=== PATIENT | female | born 1965 | race Caucasian/White ===

== ENCOUNTER 2018-08-04 22:10 | Emergency (ER) | payer OTHER ==
--- OUTSIDE RECORDS SUMMARY | 2018-08-04 22:14 | XMS REPORT | Clinical Summary ---
:1965 Author Organization [facility] Address [address] [place] [address] Care Team Providers Name Role Phone Juan Miguel Mensah MD Primary Care Provider Allergies Active Allergy Reactions Severity Noted Date Comments Adhesive Tape-Silicones 07/25/2013 Celecoxib Swelling 07/15/2016 Meperidine Hives 07/15/2016 Medications Medication Sig Dispensed Refills Start End Status Date Date prednisoLONE acetate Administer 1 0 Active (PRED FORTE) 1 % drop into the ophthalmic suspension left eye 4 (four) times a day. LOTEPREDNOL ETABONATE Apply to eye 2 0 Active (LOTEMAX OPHT) (two) times a day. OFLOXACIN OPHT Apply to eye 4 0 Active (four) times a day. Left eye pantoprazole Take 40 mg by 0 Active (PROTONIX) 40 MG EC mouth every tablet morning. doxylamine (UNISON) 25 Take 50 mg by 0 Active mg tablet mouth nightly as needed for sleep. furosemide (LASIX) 20 Take 40 mg by 0 Active MG tablet mouth as needed. levothyroxine Take 50 mcg by 0 Active (SYNTHROID, mouth every LEVOTHROID) 50 MCG morning. tablet ondansetron (ZOFRAN) 4 Take 4 mg by 0 Active MG tablet mouth every 12 (twelve) hours as needed for nausea or vomiting. sertraline (ZOLOFT) 50 Take 50 mg by 0 Active MG tablet mouth every evening. SUMAtriptan (IMITREX) Take 100 mg by 0 Active 50 MG tablet mouth once as needed for migraine. May repeat in 2 hours if unresolved. Do not exceed 200 mg in 24 hours. tiZANidine (ZANAFLEX) Take 4 mg by 0 Active 4 MG tablet mouth 4 (four) times a day as needed for muscle spasms. metoprolol tartrate Take 50 mg by 0 Active (LOPRESSOR) 50 MG mouth every tablet morning. brimonidine-timolol Administer 1 0 Active (COMBIGAN) 0.2-0.5 % drop into the ophthalmic solution left eye 4 (four) times a day. As needed gabapentin (NEURONTIN) Take 800 mg by 0 Active 800 mg tablet mouth 4 (four) times a day. ipratropium-albuterol Take 3 mL by 3 mL 0 04/27/20 Active (DUO-NEB) 0.5-2.5 nebulization 4 18 mg/mL nebulizer (four) times a day. folic acid (FOLVITE) Take 1 tablet 30 tablet 11 05/23/20 Active 800 MCG (800 mcg total) 18 019 tabletIndications: by mouth daily. Bilateral lung cancer (HCC) colestipol (COLESTID) Take 1 g by 0 Active 1 gram tablet mouth 2 (two) times a day. acyclovir (ZOVIRAX) Take 400 mg by 0 Discontinued 400 MG tablet mouth daily. 018 fentaNYL (DURAGESIC) Place 1 patch on 0 Discontinued 100 mcg/hr the skin every 018 other day. aspirin (ECOTRIN) 81 Take 81 mg by 0 Discontinued MG enteric coated mouth daily. 018 tablet leflunomide (ARAVA) 10 Take 10 mg by 0 Discontinued MG tablet mouth daily. 018 gabapentin (NEURONTIN) Take 1 capsule 30 capsule 0 12/17/19 300 mg (300 mg total) 17 018 capsuleIndications: by mouth 2 (two) Left wrist pain times a day. morPHINE (MSIR) 15 MG Take 15 mg by 0 Discontinued tablet mouth every 8 018 (eight) hours as needed for severe pain. acetaminophen Take 2 tablets 30 tablet 0 04/27/20 (TYLENOL) 500 MG (1,000 mg total) 18 018 tablet by mouth every 8 (eight) hours for 5 days. furosemide (LASIX) 40 Take 1 tablet 28 tablet 0 04/27/20 mg tablet (40 mg total) by 18 018 mouth daily for 28 days. amoxicillin-pot Take 1 tablet by 14 tablet 0 04/27/20 clavulanate mouth 2 (two) 18 018 (AUGMENTIN) 875-125 mg times a day for per tablet 7 days. methylPREDNISolone follow package 21 tablet 0 04/27/20 (MEDROL, JUANITA,) 4 mg directions 18 018 tablet dexamethasone Take 1 tablet PO 16 tablet 0 05/23/20 (DECADRON) 4 MG BID for 2 days 18 018 tabletIndications: starting the day Bilateral lung cancer after (HCC) chemotherapy acetaminophen-codeine Take 1-2 tablets 30 tablet 0 06/09/20 Discontinued (TYLENOL WITH CODEINE by mouth every 6 018 #3) 300-30 mg per (six) hours as tablet needed for moderate pain for up to 30 days. cephalexin (KEFLEX) Take 1 capsule 20 capsule 0 06/09/20 500 MG capsule (500 mg total) 18 018 by mouth 4 (four) times a day for 5 days. cephalexin (KEFLEX) Take 1 capsule 20 capsule 0 06/09/20 500 MG capsule (500 mg total) 18 018 by mouth 4 (four) times a day for 5 days. acetaminophen-codeine Take 1-2 tablets 30 tablet 0 06/09/20 Discontinued (TYLENOL WITH CODEINE by mouth every 6 018 #3) 300-30 mg per (six) hours as tablet needed for moderate pain for up to 30 days. benadryl/lidocaine/maa Swish and spit 120 mL 0 06/23/20 Discontinued lox (MAGIC MOUTHWASH) 10 mL every 6 018 1:1:1 suspension (six) hours as suspension needed (mouth sores/pain). chlorhexidine Apply 15 mL to 900 mL 0 06/23/20 (PERIDEX) 0.12 % the mouth or 18 018 solution throat 2 (two) times a day for 30 days. nystatin (MYCOSTATIN) Take 5 mL 60 mL 0 06/23/20 100,000 unit/mL (500,000 Units 018 suspension total) by mouth 2 (two) times a day for 30 days. Swish in mouth Active Problems Problem Noted Date Arthritis 06/14/2018 Coronary artery disease involving [place] coronary artery of [place] heart 06/14 without angina pectoris Bilateral lung cancer 04/21/2018 Distal radius fracture, left 07/20/2016 Displaced fracture of distal end of left radius 07/15/2016 Encounters Date Type Specialty Care Team Description 07/26/2018 Infusion Oncology Jakob Carrera MD Bilateral lung Sarah Allen RN cancer (HCC) (Primary Dx) 07/26/2018 Hospital Encounter Radiology Jakob Carrera MD Bilateral lung Sanam, cancer (HCC) Wang Asif MD 07/26/2018 Orders Only Oncology Kaylene Marion lung moraima Jerome (HCC) 07/25/2018 Orders Only Oncology Earnest Villagran RN 07/13/2018 Orders Only Oncology Kanchan Hartman MA 07/05/2018 Office Visit Oncology Jakob Carrera MD Bilateral lung cancer (HCC ) (Primary Dx); Coronary artery disease involving mash[place] coronary artery of [place]pee heart without angina pectoris; Arthritis 07/05/2018 Infusion Oncology Jakob Carrera MD Bilateral lung cancer (HCC) (Primary Dx) 07/05/2018 Orders Only Cardiology Araceli Pacheco, Bilateral lung MA cancer (HCC) (Primary Dx) 07/04/2018 Orders Only Oncology Jakob Carrera MD 06/26/2018 Hospital Encounter Radiology Jakob Carrera MD Bilateral lung cancer (HCC) 06/23/2018 Orders Only Oncology Elder Ratliff Bilateral lung Fili, RN cancer (HCC) (Primary Dx) 06/23/2018 Telephone Oncology Jakob Carrera MD 06/19/2018 Clinical Support Neurosurgery Ho, Chronic pain Ana, RN syndrome (Primary Dx) 06/14/2018 Office Visit Oncology Jakob Carrera MD Bilateral lung cancer (HCC ) (Primary Dx); Arthritis 06/14/2018 Infusion Oncology Jakob Carrera MD Bilateral lung cancer (HCC) (Primary Dx) 06/14/2018 Oncology Oncology Mallorie Branch, ALEX 06/13/2018 Orders Only Oncology Jakob Carrera MD 06/13/2018 Orders Only Oncology Kathy Sosa RPH 06/12/2018 Hospital Encounter Radiology Jakob Carrera MD Bilateral lung cancer (HCC) 06/09/2018 Anesthesia Event General Surgery Beatriz Aponte MD 06/09/2018 Surgery General Surgery Travon Grace, PLACEMENT OF PAIN MD PUMP SYSTEM 06/09/2018 Hospital Encounter General Surgery Travon Grace, Malignant neoplasm of lung, unspecified laterality, unspecified part of lung (HCC); Neck pain; Rheumatoid arthritis, involving unspecified site, unspecified rheumatoid factor presence (HCC) 06/09/2018 Telephone Oncology Jakob Carrera MD 06/08/2018 Prep for Surgery Neurosurgery Ho, Malignant neoplasm of lung , unspecified laterality, unspecified part of lung (HCC) (Primary Dx); ALEX Perez Neck pain; Rheumatoid arthritis, involving unspecified site, unspecified rheumatoid factor presence (HCC) 06/02/2018 Telephone Oncology Jakob Carrera MD 05/29/2018 Office Visit Neurosurgery Travon Grace, Chronic pain syndrome ( Primary Dx); Cancer associated pain 05/29/2018 Orders Only Oncology Earnest Villagran RN 05/29/2018 Telephone Oncology Jakob Carrera MD 05/25/2018 Orders Only Oncology Jakob Carrera MD 05/25/2018 Orders Only Oncology Jennifer Trinh RN 05/24/2018 Office Visit Cardiothoracic Janice Surgery follow-up examination (Primary Dx); Surgery Candy Gaytan NP Bilateral lung cancer Stephan Weir MD 05/23/2018 Lab Lab Jakob Carrera MD Bilateral lung cancer 05/23/2018 Office Visit Oncology Jakob Carrera MD Bilateral lung cancer (Primary Dx) 05/19/2018 Telephone Cardiothoracic Deloris Castellanos, TRAVIS 04/21/2018 Surgery Cardiothoracic Stephan Weir FLEXIBLE BRONSCOPY Deloris Garcia MD 04/21/2018 Anesthesia Event Cardiothoracic Demar Surgery Venus, [employer] TECHNICIAN 04/21/2018 - Hospital Encounter Cardiology Stephan Weir Bilateral lung 04/27/2018 MD Jose cancer 04/20/2018 Orders Only Cardiothoracic Faina, Surgery MD Dustin 04/13/2018 Surgery Cardiothoracic Stephan Weir FLEXIBLE Surgery MD Jose BRONCHOSCOPY 04/13/2018 Anesthesia Event Cardiothoracic Kasi Vega Surgery MD 04/13/2018 Hospital Encounter Cardiothoracic Stephan Weir MD 04/12/2018 Telephone Cardiothoracic Andres Surgery TRAVIS Fernandez 04/11/2018 Lab Lab Stephan Weir Bilateral lung cancer; MD Jose Pre-op testing 04/11/2018 Office Visit Cardiothoracic Stephan Weir Bilateral lung cancer ( Primary Dx); Surgery MD Jose Pre-op testing 04/11/2018 Orders Only Cardiothoracic Provider, Deloris Chan MD 04/06/2018 Hospital Encounter Radiology Jose Cadet Mass of left lung MD Robert 04/06/2018 Hospital Encounter Radiology Mac, Mass of left lung Osman Macdonald MD 03/28/2018 Hospital Encounter Radiology Mac, Malignant neoplasm Osman Macdonald MD of lung, unspecified laterality, unspecified part of lung 03/27/2018 Orders Only Cardiothoracic Provider, Deloris Chan MD 03/24/2018 Telephone Cardiothoracic Deloris Campos MA 03/24/2018 Transcribe Orders Radiology Mac, Mass of left lung Osman Macdonald MD (Primary Dx) 03/22/2018 Transcribe Orders Access Mac Malignant neoplasm Osman Macdonald MD of lung, unspecified laterality, unspecified part of lung (Primary Dx) 03/06/2018 Hospital Encounter Radiology Aashish Gibbons MD 03/06/2018 Hospital Encounter Radiology Aashish Gibbons Lung mass MD Rajiv 03/06/2018 Hospital Encounter Radiology Mac, Lung mass Osman Macdonald MD 03/06/2018 Hospital Encounter Radiology Aashish Gibbons MD 03/02/2018 Telephone Radiology Anat Mcdermott RN 02/23/2018 Transcribe Orders Radiology Mac, Lung mass (Primary Osman Macdonald MD Dx) 02/22/2018 Hospital Encounter Radiology Osman Watts MD 02/22/2018 Hospital Encounter Radiology Osman Watts MD after 08/03/2017 Family History Medical History Relation Name Comments Cancer Brother colon cancer Cancer Mother throat/breast cancer Cancer Sister lung cancer Relation Name Status Comments Brother (Age 57) Mother (Age 76) Sister (Age 42) Social History Tobacco Use Types Packs/Day Years Used Date Former Smoker Cigarettes 14 4 Quit: 04/11/1994 Smokeless Tobacco: Never Used Comments: Quit 20 years ago Alcohol Use Drinks/Week oz/Week Comments Yes Quit over a year ago Sex Assigned at Date Recorded Not on file Job Start Date Occupation Industry Not on file Not on file Not on file Travel History Travel Start Travel End No recent travel history available. Last Filed Vital Signs Vital Sign Reading Time Taken Blood Pressure 160/75 07/26/2018 10:15 AM CHIEF CLERK Pulse 76 07/26/2018 10:15 AM CHIEF CLERK Temperature 35.9 C (96.6 F) 07/26/2018 10:15 AM CHIEF CLERK Respiratory Rate 19 07/26/2018 10:15 AM CHIEF CLERK Oxygen Saturation 97% 07/26/2018 10:15 AM CHIEF CLERK Inhaled Oxygen Concentration - - Weight 100 kg (220 lb 11.2 oz) 07/26/2018 10:15 AM CHIEF CLERK Height 157.5 cm (5' 2") 07/26/2018 10:15 AM CHIEF CLERK Body Mass Index 40.37 07/26/2018 10:15 AM CHIEF CLERK Plan of Treatment Date Type Specialty Care Team Description 08/16/2018 Office Visit Oncology Jakob Carrera MD [address] [place] [phone] 08/16/2018 Infusion Oncology Jakob Carrera MD [address] [place] [phone] Health Maintenance Due Date Last Done Comments CERVICAL CANCER SCREENING 1984 BREAST CANCER SCREENING 2013 COLON CANCER SCREENING 2013 SHINGRIX VACCINE (1 of 2) 2013 INFLUENZA VACCINE 04/05/2018 HEPATITIS B VACCINES Aged Out No longer eligible based on patient's age to complete this topic IPV VACCINES Aged Out No longer eligible based on patient's age to complete this topic MENINGOCOCCAL VACCINE Aged Out No longer eligible based on patient's age to complete this topic Implants Implanted Type Area Solution Sales Senior Executive Device Shelf Model / Identifier Expiration Serial / Date Lot Port Injctbl Smart Port Ct W/ Dtchd [facility] Cath 8fr - [id number] Implantable N/A: [employer] 01/02/2021 [id number] / Implanted: 06/12/2018 (Quantity not on file) Infusion Ports N/A / or Accessories [id number] Infsn Synchromed Ii W/ Fltr Sut Loop Prgrmbl Rsvr 20ml - [id number] Neurosurgical N/A: [employer] 10/19/2019 [id number] / Implanted: Qty: 1 on 06/09/2018 by Travon Grace MD Implants N/A NEUROMODULATION / [id number] Passer Intrathcl Cath Rp Tip Obtrtr 38cm - [id number] Surgical N/A: [employer] [place] - 08/25/2019 [id number] / Implanted: Qty: 1 on 06/09/2018 by Travon Grace MD Implantable N/A NEUROLOGICAL / Shunts or Shunt [id number] Extenders Kit Selnt Fibrin Humn Hmsts Surgy 5ml Evicel - [id number] Surgical N/A: [employer] - 07/05/2019 [id number] / Implanted: Qty: 1 on 04/21/2018 by Stephan Weir MD Implants; N/A / Expanders; [id number] Extenders; Surgical Wires Closure Wnd Tiss Rpr Sys - [id number] Surgical N/A: ANULEX 03/17/2022 XC [id number] / Implanted: Qty: 1 on 06/09/2018 by Travon Grace MD Implants; N/A [employer] / Expanders; [id number] Extenders; Surgical Wires Procedures Procedure Name Priority Date/Time Associated Comments Diagnosis ESTIMATED GFR STAT 07/26/2018 10:22 Results for this AM CHIEF CLERK procedure are in the results section. MAGNESIUM LEVEL STAT 07/26/2018 10:22 Bilateral lung Results for this AM CHIEF CLERK cancer (HCC) procedure are in the results section. COMPREHENSIVE STAT 07/26/2018 10:22 Bilateral lung Results for this METABOLIC PANEL AM CHIEF CLERK cancer (HCC) procedure are in the results section. HC COMPLETE BLD COUNT STAT 07/26/2018 10:22 Bilateral lung Results for this W/AUTO DIFF AM CHIEF CLERK cancer (HCC) procedure are in the results section. CT CHEST W CONTRAST Routine 07/26/2018 10:04 Bilateral lung Results for this ABDOMEN W CONTRAST AM CHIEF CLERK cancer (HCC) procedure are in PELVIS W CONTRAST the results section. POC CREATININE Routine 07/26/2018 9:14 Results for this AM CHIEF CLERK procedure are in the results section. ESTIMATED GFR Routine 07/26/2018 9:14 Results for this AM CHIEF CLERK procedure are in the results section. ESTIMATED GFR STAT 07/05/2018 10:24 Results for this AM CDT procedure are in the results section. MAGNESIUM LEVEL STAT 07/05/2018 10:24 Bilateral lung Results for this AM CDT cancer (HCC) procedure are in the results section. COMPREHENSIVE STAT 07/05/2018 10:24 Bilateral lung Results for this METABOLIC PANEL AM CDT cancer (HCC) procedure are in the results section. HC COMPLETE BLD COUNT STAT 07/05/2018 10:24 Bilateral lung Results for this W/AUTO DIFF AM CDT cancer (HCC) procedure are in the results section. CT CHEST W CONTRAST Routine 06/26/2018 11:42 Bilateral lung Results for this ABDOMEN W CONTRAST AM CDT cancer (HCC) procedure are in PELVIS W CONTRAST the results section. ESTIMATED GFR STAT 06/14/2018 11:19 Results for this AM CDT procedure are in the results section. MAGNESIUM LEVEL STAT 06/14/2018 11:19 Bilateral lung Results for this AM CDT cancer (HCC) procedure are in the results section. COMPREHENSIVE STAT 06/14/2018 11:19 Bilateral lung Results for this METABOLIC PANEL AM CDT cancer (HCC) procedure are in the results section. HC COMPLETE BLD COUNT STAT 06/14/2018 11:19 Bilateral lung Results for this W/AUTO DIFF AM CDT cancer (HCC) procedure are in the results section. IR PORT PLACEMENT Routine 06/12/2018 12:54 Bilateral lung Results for this PM CDT cancer (HCC) procedure are in the results section. POC GLUCOSE Routine 06/12/2018 11:10 Results for this AM CDT procedure are in the results section. OR FL < 1 HOUR Routine 06/09/2018 8:35 Results for this AM CDT procedure are in the results section. GA AN ELECTIVE Routine 06/09/2018 8:29 ENDOTRACHEAL AIRWAY AM CDT Procedure Note - Ta Scott CRNA - 06/09/2018 8:29 AM CDT Airway Date/Time: 06/09/2018 7:46 AM Performed by: TA SCOTT Authorized by: RASHEL RAY Location: OR Urgency: Elective Difficult Airway: No Resident/[employer] TECHNICIAN/AA: TA SCOTT Performed by: resident/[employer] TECHNICIAN/AA Preoxygenated with 100% O2: Yes C-spine Precautions Maintained Throughout: Yes Mask Ventilation: Not attempted Final Airway Type: Endotracheal airway Final Endotracheal Airway: ETT Cuffed: Yes Technique Used: Video laryngoscopy (RA to stablelize the neck ) Insertion Site: Oral Blade Type: Tish Laryngoscope Blade/Videolaryngoscope Blade Size: 3 ETT Size (mm): 7.0 Cuff at minimum occlusion pressure: Yes Measured from: Gums ETT to Gums (cm): 22 Placement Verified by: CO2 detection, direct visualization and equal breath sounds Laryngoscopic view: Grade I - full view of glottis Rapid Sequence Induction (RSI): Yes Modified RSI: No Number of Attempts at Approach: 1 INSERTION OR REVISION, BACLOFEN OR 06/09/2018 7:30 AM CDT Pain due to neoplasm MORPHINE PUMP Case Notes MEDTRON[employer], C-ARM, SKYTRON TABLE Special Needs MEDTRONIC, C-ARM, SKYTRON TABLE ESTIMATED GFR STAT 06/09/2018 6:30 AM Results for this CDT procedure are in the results section. BASIC METABOLIC PANEL STAT 06/09/2018 6:30 AM Results for this CDT procedure are in the results section. PROTHROMBIN TIME WITH Routine 05/23/2018 2:21 PM Bilateral lung Results for this INR CDT cancer procedure are in the results section. HC COMPLETE BLD COUNT Routine 05/23/2018 2:21 PM Bilateral lung Results for this W/AUTO DIFF CDT cancer procedure are in the results section. POC GLUCOSE Routine 04/27/2018 10:17 AM Results for this CDT procedure are in the results section. XR CHEST 1 VW PORTABLE Routine 04/27/2018 8:32 AM Results for this CDT procedure are in the results section. TYPE AND SCREEN Routine 04/27/2018 5:00 AM Results for this CDT procedure are in the results section. ZZESTIMATED GFR Routine 04/27/2018 4:00 AM Results for this CDT procedure are in the results section. BASIC METABOLIC PANEL Routine 04/27/2018 4:00 AM Results for this CDT procedure are in the results section. POC GLUCOSE Routine 04/26/2018 9:00 PM Results for this CDT procedure are in the results section. POC GLUCOSE Routine 04/26/2018 6:07 PM Results for this CDT procedure are in the results section. GRAM STAIN Routine 04/26/2018 12:40 PM Results for this CDT procedure are in the results section. SPUTUM CULTURE Routine 04/26/2018 12:40 PM Results for this CDT procedure are in the results section. POC GLUCOSE Routine 04/26/2018 12:22 PM Results for this CDT procedure are in the results section. POC GLUCOSE Routine 04/26/2018 7:33 AM Results for this CDT procedure are in the results section. ZZESTIMATED GFR Routine 04/26/2018 5:43 AM Results for this CDT procedure are in the results section. MAGNESIUM LEVEL Routine 04/26/2018 5:43 AM Results for this CDT procedure are in the results section. PHOSPHORUS LEVEL Routine 04/26/2018 5:43 AM Results for this CDT procedure are in the results section. BASIC METABOLIC PANEL Routine 04/26/2018 5:43 AM Results for this CDT procedure are in the results section. HC COMPLETE BLD COUNT Routine 04/26/2018 5:43 AM Results for this W/AUTO DIFF CDT procedure are in the results section. ECG 12-LEAD STAT 04/25/2018 9:59 PM Results for this CDT procedure are in the results section. XR CHEST 1 VW PORTABLE Routine 04/25/2018 7:09 PM Results for this CDT procedure are in the results section. RESPIRATORY PATHOGEN Routine 04/25/2018 6:13 PM Results for this PANEL CDT procedure are in the results section. POC GLUCOSE Routine 04/25/2018 5:55 PM Results for this CDT procedure are in the results section. POC GLUCOSE Routine 04/25/2018 11:58 AM Results for this CDT procedure are in the results section. POC GLUCOSE Routine 04/25/2018 7:37 AM Results for this CDT procedure are in the results section. ZZESTIMATED GFR Routine 04/25/2018 6:26 AM Results for this CDT procedure are in the results section. MAGNESIUM LEVEL Routine 04/25/2018 6:26 AM Results for this CDT procedure are in the results section. PHOSPHORUS LEVEL Routine 04/25/2018 6:26 AM Results for this CDT procedure are in the results section. HC COMPLETE BLD COUNT Routine 04/25/2018 6:26 AM Results for this W/AUTO DIFF CDT procedure are in the results section. BASIC METABOLIC PANEL Routine 04/25/2018 6:26 AM Results for this CDT procedure are in the results section. POC GLUCOSE Routine 04/24/2018 4:49 PM Results for this CDT procedure are in the results section. POC GLUCOSE Routine 04/24/2018 11:46 AM Results for this CDT procedure are in the results section. XR CHEST 1 VW PORTABLE Timed 04/24/2018 6:45 AM Results for this CDT procedure are in the results section. ZZESTIMATED GFR Routine 04/24/2018 5:11 AM Results for this CDT procedure are in the results section. PHOSPHORUS LEVEL Routine 04/24/2018 5:11 AM Results for this CDT procedure are in the results section. MAGNESIUM LEVEL Routine 04/24/2018 5:11 AM Results for this CDT procedure are in the results section. HC COMPLETE BLD COUNT Routine 04/24/2018 5:11 AM Results for this W/AUTO DIFF CDT procedure are in the results section. BASIC METABOLIC PANEL Routine 04/24/2018 5:11 AM Results for this CDT procedure are in the results section. POC GLUCOSE Routine 04/23/2018 8:59 PM Results for this CDT procedure are in the results section. POC GLUCOSE Routine 04/23/2018 4:48 PM Results for this CDT procedure are in the results section. POC GLUCOSE Routine 04/23/2018 11:39 AM Results for this CDT procedure are in the results section. HC COMPLETE BLD COUNT STAT 04/23/2018 10:20 AM Results for this W/AUTO DIFF CDT procedure are in the results section. ZZESTIMATED GFR STAT 04/23/2018 9:13 AM Results for this CDT procedure are in the results section. PHOSPHORUS LEVEL STAT 04/23/2018 9:13 AM Results for this CDT procedure are in the results section. MAGNESIUM LEVEL STAT 04/23/2018 9:13 AM Results for this CDT procedure are in the results section. BASIC METABOLIC PANEL STAT 04/23/2018 9:13 AM Results for this CDT procedure are in the results section. POC GLUCOSE Routine 04/23/2018 7:18 AM Results for this CDT procedure are in the results section. URINALYSIS SCREEN AND STAT 04/23/2018 6:20 AM Results for this MICROSCOPY, WITH CDT procedure are in REFLEX TO CULTURE the results section. URINE CULTURE STAT 04/23/2018 6:20 AM Results for this CDT procedure are in the results section. BLOOD CULTURE, AEROBIC Routine 04/23/2018 2:18 AM Results for this & ANAEROBIC CDT procedure are in the results section. BLOOD CULTURE, AEROBIC Routine 04/23/2018 12:30 AM Results for this & ANAEROBIC CDT procedure are in the results section. POC GLUCOSE Routine 04/22/2018 6:02 PM Results for this CDT procedure are in the results section. XR CHEST 1 VW PORTABLE Timed 04/22/2018 1:11 PM Results for this CDT procedure are in the results section. POC GLUCOSE Routine 04/22/2018 11:53 AM Results for this CDT procedure are in the results section. POC GLUCOSE Routine 04/22/2018 8:30 AM Results for this CDT procedure are in the results section. XR CHEST 1 VW PORTABLE STAT 04/22/2018 6:44 AM Results for this CDT procedure are in the results section. HC COMPLETE BLD COUNT Routine 04/22/2018 5:18 AM Results for this W/AUTO DIFF CDT procedure are in the results section. ZZESTIMATED GFR Routine 04/22/2018 4:00 AM Results for this CDT procedure are in the results section. MAGNESIUM LEVEL Routine 04/22/2018 4:00 AM Results for this CDT procedure are in the results section. PHOSPHORUS LEVEL Routine 04/22/2018 4:00 AM Results for this CDT procedure are in the results section. BASIC METABOLIC PANEL Routine 04/22/2018 4:00 AM Results for this CDT procedure are in the results section. POC GLUCOSE Routine 04/21/2018 5:43 PM Results for this CDT procedure are in the results section. XR CHEST 1 VW PORTABLE STAT 04/21/2018 1:25 PM Results for this CDT procedure are in the results section. SURGICAL PATHOLOGY Routine 04/21/2018 11:43 AM Results for this REQUEST CDT procedure are in the results section. SURGICAL PATHOLOGY Routine 04/21/2018 11:43 AM Results for this REQUEST CDT procedure are in the results section. SURGICAL PATHOLOGY Routine 04/21/2018 11:43 AM Results for this REQUEST CDT procedure are in the results section. SURGICAL PATHOLOGY Routine 04/21/2018 11:43 AM Results for this REQUEST CDT procedure are in the results section. GLUCOSE LEVEL, SYRINGE STAT 04/21/2018 11:25 AM Results for this CDT procedure are in the results section. IONIZED CALCIUM, STAT 04/21/2018 11:25 AM Results for this ARTERIAL CDT procedure are in the results section. HEMOGLOBIN, SYRINGE STAT 04/21/2018 11:25 AM Results for this CDT procedure are in the results section. POTASSIUM, SYRINGE STAT 04/21/2018 11:25 AM Results for this CDT procedure are in the results section. SODIUM LEVEL, SYRINGE STAT 04/21/2018 11:25 AM Results for this CDT procedure are in the results section. ARTERIAL BLOOD GAS STAT 04/21/2018 11:25 AM Results for this CDT procedure are in the results section. MISCELLANEOUS REFERRAL Routine 04/21/2018 11:04 AM Results for this TEST CDT procedure are in the results section. ARTERIAL LINE Routine 04/21/2018 9:17 AM CDT Procedure Note - Susan Caceres CRNA - 04/21/2018 9:17 AM CDT Arterial line Performed by: SUSAN CACERES Authorized by: MILADY SOLIS Patient Location: Pre-op Staff: Anesthesiologist: MILADY SOLIS Performed by: Anesthesiologist Pre-procedure: patient identified, IV checked, site and side verified, risks and benefits discussed, procedure verified, surgical consent complete, patient position confirmed, monitors and equipment checked and pre-op evaluation complete MSBT: antiseptic used, all elements of maximal sterile barrier technique followed, hand hygiene performed, cap/gown used by other personnel and solutions labeled Indications: Indications: multiple ABGs and hemodynamic monitoring Anesthesia: Anesthesia: Local infiltration Procedure Details: Arterial Line placement: Placed post induction Line placement site: Radial Line placement side: Right Arterial line gauge: 20 G Number of attempts: 2 Ultrasound guidance used: Yes Post-procedure: Post-procedure: Sterile dressing applied Post procedure circulation, sensation, movement: Normal Patient tolerance: Patient tolerated the procedure well with no immediate complications GLUCOSE LEVEL, SYRINGE STAT 04/21/2018 8:59 AM CDT HEMOGLOBIN, SYRINGE STAT 04/21/2018 8:59 AM CDT IONIZED CALCIUM, ARTERIAL STAT 04/21/2018 8:59 AM CDT POTASSIUM, SYRINGE STAT 04/21/2018 8:59 AM CDT SODIUM LEVEL, SYRINGE STAT 04/21/2018 8:59 AM CDT ARTERIAL BLOOD GAS STAT 04/21/2018 8:59 AM CDT GA AN ELECTIVE ENDOTRACHEAL Routine 04/21/2018 8:39 AM CDT AIRWAY Procedure Note - Amairani Will - 04/21/2018 8:39 AM CDT Airway Date/Time: 04/21/2018 7:45 AM Performed by: MILADY SOLIS Authorized by: MILADY SOLIS Location: OR Urgency: Elective Difficult Airway: No Anesthesiologist: MILADY SOLIS Resident/[place] TECHNICIAN/AA: SUSAN CACERES Other Anesthesia Staff: AMAIRANI WILL Preoxygenated with 100% O2: Yes Mask Ventilation: Easy mask Final Airway Type: Endotracheal airway Final Endotracheal Airway: ETT - double lumen right Cuffed: Yes Technique Used: Video laryngoscopy Devices/Methods Used in Placement: Intubating stylet Insertion Site: Oral ETT Double Lumen (fr): 37 Cuff at minimum occlusion pressure: Yes Placement Verified by: CO2 detection, direct visualization and equal breath sounds Laryngoscopic view: Grade I - full view of glottis Rapid Sequence Induction (RSI): No Modified RSI: No Atraumatic intubation with glidescope. Dentition and soft tissue unchanged from baseline. GLUCOSE LEVEL, SYRINGE STAT 04/21/2018 7:56 AM CDT IONIZED CALCIUM, ARTERIAL STAT 04/21/2018 7:56 AM CDT HEMOGLOBIN, SYRINGE STAT 04/21/2018 7:56 AM CDT SODIUM LEVEL, SYRINGE STAT 04/21/2018 7:56 AM CDT POTASSIUM, SYRINGE STAT 04/21/2018 7:56 AM CDT ARTERIAL BLOOD GAS, STAT 04/21/2018 7:56 AM CDT Results for this CORRECTED procedure are in the results section. ECG 12-LEAD STAT 04/21/2018 6:06 AM CDT MRI BRAIN W WO CONTRAST Routine 04/18/2018 GA AN ELECTIVE ENDOTRACHEAL Routine 04/13/2018 7:26 AM CDT AIRWAY Procedure Note - Raiza Casiano MD - 04/13/2018 7:26 AM CDT Airway Date/Time: 04/13/2018 7:26 AM Performed by: RAIZA CASIANO Authorized by: RAIZA CASIANO Location: OR Urgency: Elective Difficult Airway: No Anesthesiologist: RAIZA CASIANO Resident/[place] TECHNICIAN/AA: KASI VEGA Performed by: resident/[place] TECHNICIAN/AA Preoxygenated with 100% O2: Yes C-spine Precautions Maintained Throughout: Yes Mask Ventilation: Easy mask Final Airway Type: Endotracheal airway Final Endotracheal Airway: ETT Technique Used: Direct laryngoscopy Insertion Site: Oral Blade Type: Wooten Laryngoscope Blade/Videolaryngoscope Blade Size: 2 ETT Size (mm): 9.0 Measured from: Gums ETT to Gums (cm): 21 Placement Verified by: CO2 detection, direct visualization and equal breath sounds Laryngoscopic view: Grade IIa - partial view of glottis Rapid Sequence Induction (RSI): No Modified RSI: No Number of Attempts at Approach: 1 PREPARE RBC Routine 04/11/2018 11:04 Results for this AM CDT procedure are in the results section. ZZESTIMATED GFR Routine 04/11/2018 11:04 Results for this AM CDT procedure are in the results section. PARTIAL THROMBOPLASTIN Routine 04/11/2018 11:04 Bilateral lung Results for this TIME (PTT) AM CDT cancer procedure are in Pre-op testing the results section. PROTHROMBIN TIME WITH Routine 04/11/2018 11:04 Bilateral lung Results for this INR AM CDT cancer procedure are in Pre-op testing the results section. COMPREHENSIVE METABOLIC Routine 04/11/2018 11:04 Bilateral lung Results for this PANEL AM CDT cancer procedure are in Pre-op testing the results section. TYPE AND SCREEN Routine 04/11/2018 11:04 Bilateral lung Results for this AM CDT cancer procedure are in Pre-op testing the results section. HC COMPLETE BLD COUNT Routine 04/11/2018 11:04 Bilateral lung Results for this W/AUTO DIFF AM CDT cancer procedure are in Pre-op testing the results section. XR CHEST 1 VW Routine 04/06/2018 11:48 Mass of left lung Results for this AM CDT procedure are in the results section. SURGICAL PATHOLOGY Routine 04/06/2018 10:49 Results for this REQUEST AM CDT procedure are in the results section. SURGICAL PATHOLOGY Routine 04/06/2018 10:49 Results for this REQUEST AM CDT procedure are in the results section. SURGICAL PATHOLOGY Routine 04/06/2018 10:49 Results for this REQUEST AM CDT procedure are in the results section. SURGICAL PATHOLOGY Routine 04/06/2018 10:49 Results for this REQUEST AM CDT procedure are in the results section. MISCELLANEOUS REFERRAL Routine 04/06/2018 10:49 Results for this TEST AM CDT procedure are in the results section. CT NEEDLE BIOPSY NO Routine 04/06/2018 10:13 Mass of left lung Results for this CONTRAST AM CDT procedure are in the results section. CYTOLOGY Routine 04/06/2018 9:35 Results for this (NON-GYNECOLOGICAL) AM CDT procedure are in REQUEST the results section. POC GLUCOSE Routine 04/06/2018 8:32 Results for this AM CDT procedure are in the results section. PET CT SKULL BASE TO Routine 03/28/2018 11:53 Malignant neoplasm Results for this MID THIGH AM CDT of lung, procedure are in unspecified the results laterality, section. unspecified part of lung POC GLUCOSE Routine 03/28/2018 10:39 Results for this AM CDT procedure are in the results section. XR CHEST 1 VW Routine 03/06/2018 2:11 Results for this PM CDT procedure are in the results section. XR CHEST 1 VW Routine 03/06/2018 12:40 Lung mass Results for this PM CDT procedure are in the results section. SURGICAL PATHOLOGY Routine 03/06/2018 12:03 Results for this REQUEST PM CDT procedure are in the results section. SURGICAL PATHOLOGY Routine 03/06/2018 12:03 Results for this REQUEST PM CDT procedure are in the results section. CT NEEDLE BIOPSY NO Routine 03/06/2018 11:11 Lung mass Results for this CONTRAST AM CDT procedure are in the results section. CYTOLOGY Routine 03/06/2018 10:50 Results for this (NON-GYNECOLOGICAL) AM CDT procedure are in REQUEST the results section. CT CHEST WO CONTRAST STAT 03/06/2018 8:25 Results for this AM CDT procedure are in the results section. PULMONARY FUNCTION TEST Routine 02/08/[address] WHOLE BODY Routine 01/12/2018 10:59 Results for this EXTERNAL STUDY AM CDT procedure are in the results section. PET CT SKULL BASE MID Routine 01/12/[address] CHEST EXTERNAL STUDY Routine 12/28/2017 4:32 Results for this PM CDT procedure are in the results section. CT CHEST WO CONTRAST Routine 12/28/2017 after 08/03/2017 Results Estimated GFR (07/26/2018 10:22 AM CHIEF CLERK)Only the most recent of5 resultswithin the time period is included. Estimated GFR 72 mL/min/1.73 m2 [facility] Comment: [facility]IENT CENTER CatergoryUnitsInterpretation G1 >=90 Normal or high G2 60-89Mildly decreased [id number] to moderately decreased [id number] to severely decreased G4 15-29Severely decreased G5 <15Kidney failure The eGFR was calculated using the Chronic Kidney Disease Epidemiology Collaboration (CKD-EPI) equation. Interpretation is based on recommendations of the National Kidney Foundation-Kidney Disease Outcomes Quality Initiative (NKF-KDOQI) published in 2014. Specimen Plasma specimen Performing Organization Address City/[facility] Phone Number [facility] DEPARTMENT OF PATHOLOGY AND [address] [place] [id number] [place] [id number] CBC with platelet and differential (07/26/2018 10:22 AM CHIEF CLERK)Only the most recent of10 resultswithin the time period is included. WBC 4.64 4.50 - 11.00 k/uL [facility] RBC 3.47 (L) 4.20 - 5.50 m/uL [facility] HGB 9.4 (L) 12.0 - 16.0 g/dL [facility] HCT 29.3 (L) 37.0 - 47.0 % [facility] MCV 84.4 82.0 - 100.0 fL [facility] MCH 27.1 27.0 - 34.0 pg [facility] MCHC 32.1 31.0 - 37.0 g/dL [facility] RDW - SD 45.2 37.0 - 55.0 fL [facility] MPV 9.5 8.8 - 13.2 fL [facility] Platelet count 264 150 - 400 k/uL [facility] Neutrophils 39.3 39.0 - 69.0 % [facility] Lymphocytes 45.9 (H) 25.0 - 45.0 % [facility] Monocytes 11.6 (H) 0.0 - 10.0 % [facility] Eosinophils 2.8 0.0 - 5.0 % [facility] Basophils 0.4 0.0 - 1.0 % [facility] Specimen Blood Performing Organization Address City/[facility]/Zipcode Phone Number [facility] DEPARTMENT OF PATHOLOGY AND [address] [place] [address] [address] Magnesium level (07/26/2018 10:22 AM CHIEF CLERK)Only the most recent of8 resultswithin the time period is included. Magnesium 1.8 1.6 - 2.6 mg/dL [facility] Specimen Plasma specimen Performing Organization Address City/[facility] Phone Number [facility] DEPARTMENT OF PATHOLOGY AND [address] [place] [address] Comprehensive metabolic panel (07/26/2018 10:22 AM CHIEF CLERK)Only the most recent of4 resultswithin the time period is included. Sodium 134 (L) 135 - 148 mEq/L [facility] Potassium 4.1 3.5 - 5.0 mEq/L [facility] Chloride 98 98 - 112 mEq/L [facility] CO2 27 24 - 31 mEq/L [facility] Anion gap 9@ANIO 7 - 15 mEq/L [facility] BUN 17 6 - 20 mg/dL [facility] Creatinine 0.90 0.50 - 0.90 mg/dL [facility] Glucose 95 65 - 99 mg/dL [facility] Calcium 9.2 8.3 - 10.2 mg/dL [facility] Protein 6.8 6.3 - 8.3 g/dL [facility] Comment: OUTPATIENT CENTER [place] 4.6-7.0 g/dL 1 week 4.4-7.6 g/dL 7 months-1year5.1-7.3 g/dL 1-2 years5.6-7.5 g/dL >3 years6.0-8.0 g/dL 18-150 6.3-8.3 g/dL Albumin 3.8 3.5 - 5.0 g/dL [facility] A/G ratio 1.3 0.7 - 3.8 [facility] Alkaline phosphatase 81 35 - 104 U/L [facility] AST 16 10 - 35 U/L [facility] ALT 15 5 - 50 U/L [facility] Total bilirubin 0.1 0.0 - 1.2 mg/dL [facility] Specimen Plasma specimen Performing Organization Address City/[facility] Phone Number [facility] DEPARTMENT OF PATHOLOGY AND [address] [place] [address] GENOMIC MEDICINE [address] [address] [address] Chest W Contrast Abdomen W Contrast Pelvis W Contrast (07/26/2018 10:04 AM CHIEF CLERK)Only the most recent of2 resultswithin the time period is included. Narrative Performed At EXAMINATION:CT CHEST W CONTRAST ABDOMEN W CONTRAST PELVIS W CONTRAST HM [facility] CLINICAL HISTORY:C34.91 Malignant neoplasm of unspecified part of right bronchus or lung, C34.92 Malignant neoplasm of unspecified part of left bronchus or lung, lung cancer TECHNIQUE:Multiple axial images of the chest, abdomen, and pelvis were obtained following intravenous administration of iodinated contrast. Sagittal and coronal computerized reformatted images were obtained.All CT images were acquired using radiation dose lowering technique with automated exposure control and / or iterative reconstruction. COMPARISON:CT chest abdomen and pelvis 06/26/2018 IMPRESSION: CHEST: 1. Status post right upper lobectomy. The nodular focus abutting the mediastinal pleura at the resection margin now measures 1.3 x 0.7 cm, series 3 image 31, stable, though it has only been one month since the prior, an additional follow-up in 3-6 months advised. Bands of postoperative scarring and volume loss more caudally are stable as well. 2.The part solid pleural-based focus posterior laterally in the apicoposterior left upper lobe, series 3 image 22 likewise stable, measuring 13 mm. 3.The left lower lobe superior segment infiltrate seen previously has completely resolved. Minimal residual nodular infiltrates peripherally in the basal left lower lobe, has improved. 4.Tiny 4 mm nodules in the right lung apex, for example on series 3 images 18 and 19, are stable from prior. Attention on follow-up advised. Lungs otherwise clear. 5.Left hemithyroidectomy. No axillary, mediastinal or hilar lymphadenopathy. Heart is not enlarged. No pericardial or pleural effusion. Right chest wall port, tip in the right atrium. ABDOMEN: 1. Stable subcentimeter hepatic hypodensities, likely cysts. Liver otherwise unremarkable. Cholecystectomy. 2.Bile ducts, pancreas, spleen, adrenal glands, abdominal aorta demonstrates nothing unusual. 3.Mild renal cortical scarring bilaterally. Subcentimeter left renal hypodensity too small to characterize, likely cyst. Mild fullness of the right renal collecting system similar to prior. No definite hydronephrosis. PELVIS: 1. Ventral hernia repair with mesh. 2.Neurostimulator device again noted in the right flank. Small focal fluid density in the subcutaneous tissues overlying the lumbar spine adjacent to the neurostimulator lead, measuring 2.0 x 1.9 cm, series 2 image 157, new from prior, compatible with a postprocedural seroma. Follow-up to ensure resolution recommended. 3. No free fluid or lymphadenopathy identified in the abdomen or pelvis. 4.Hysterectomy. Urinary bladder incompletely distended otherwise unremarkable. Small fat-containing left inguinal hernia. 5.Duodenal diverticulum at the junction of the second and third portions, measuring 4 cm. Bowel loop show no evidence of obstruction or acute inflammation. 6.Visualized bones show no suspicious lesion. Partially healed right rib fractures from the thoracotomy. SUMMARY: Interval resolution of the left lower lobe superior segment pneumonia, and near resolution of the tiny infiltrates at the base. Stable appearance of nodularity at the resection margin and tiny right lung apex nodules. New 2 cm fluid collection in the subcutaneous tissues overlying the lumbar spine, likely postprocedural seroma, see above for details and correlation with any recent intervention advised. [facility]-[id number] Procedure Note [facility], Radiology Results Incoming - 07/26/2018 10:39 AM CHIEF CLERK EXAMINATION: CT CHEST W CONTRAST ABDOMEN W CONTRAST PELVIS W CONTRAST CLINICAL HISTORY: C34.91 Malignant neoplasm of unspecified part of right bronchus or lung, C34.92 Malignant neoplasm of unspecified part of left bronchus or lung, lung cancer TECHNIQUE: Multiple axial images of the chest, abdomen, and pelvis were obtained following intravenous administration of iodinated contrast. Sagittal and coronal computerized reformatted images were obtained. All CT images were acquired using radiation dose lowering technique with automated exposure control and / or iterative reconstruction. COMPARISON: CT chest abdomen and pelvis 06/26/2018 IMPRESSION: CHEST: 1. Status post right upper lobectomy. The nodular focus abutting the mediastinal pleura at the resection margin now measures 1.3 x 0.7 cm, series 3 image 31, stable, though it has only been one month since the prior, an additional follow-up in 3-6 months advised. Bands of postoperative scarring and volume loss more caudally are stable as well. 2. The part solid pleural-based focus posterior laterally in the apicoposterior left upper lobe, series 3 image 22 likewise stable, measuring 13 mm. 3. The left lower lobe superior segment infiltrate seen previously has completely resolved. Minimal residual nodular infiltrates peripherally in the basal left lower lobe, has improved. 4. Tiny 4 mm nodules in the right lung apex, for example on series 3 images 18 and 19, are stable from prior. Attention on follow-up advised. Lungs otherwise clear. 5. Left hemithyroidectomy. No axillary, mediastinal or hilar lymphadenopathy. Heart is not enlarged. No pericardial or pleural effusion. Right chest wall port , tip in the right atrium. ABDOMEN: 1. Stable subcentimeter hepatic hypodensities, likely cysts. Liver otherwise unremarkable. Cholecystectomy. 2. Bile ducts, pancreas, spleen, adrenal glands, abdominal aorta demonstrates nothing unusual. 3. Mild renal cortical scarring bilaterally. Subcentimeter left renal hypodensity too small to characterize, likely cyst. Mild fullness of the right renal collecting system similar to prior. No definite hydronephrosis. PELVIS: 1. Ventral hernia repair with mesh. 2. Neurostimulator device again noted in the right flank. Small focal fluid density in the subcutaneous tissues overlying the lumbar spine adjacent to the neurostimulator lead, measuring 2.0 x 1.9 cm, series 2 image 157, new from prior, compatible with a postprocedural seroma. Follow-up to ensure resolution recommended. 3. No free fluid or lymphadenopathy identified in the abdomen or pelvis. 4. Hysterectomy. Urinary bladder incompletely distended otherwise unremarkable. Small fat-containing left inguinal hernia. 5. Duodenal diverticulum at the junction of the second and third portions, measuring 4 cm. Bowel loop show no evidence of obstruction or acute inflammation. 6. Visualized bones show no suspicious lesion. Partially healed right rib fractures from the thoracotomy. SUMMARY: Interval resolution of the left lower lobe superior segment pneumonia, and near resolution of the tiny infiltrates at the base. Stable appearance of nodularity at the resection margin and tiny right lung apex nodules. New 2 cm fluid collection in the subcutaneous tissues overlying the lumbar spine, likely postprocedural seroma, see above for details and correlation with any recent intervention advised. [facility]-[id number] Performing Organization Address City/State/Zipcode Phone Number [facility] [address] [place] [address] POC creatinine (07/26/2018 9:14 AM CHIEF CLERK) POC creatinine 1.0 (H) 0.5 - 0.9 mg/dl [facility] Comment: Meter ID: [id number] Rating Examiner: Ledy Evans Specimen Blood Performing Organization Address City/State/Zipcode Phone Number [facility] DEPARTMENT OF PATHOLOGY AND [address] [place] [address] GENOMIC MEDICINE [facility] [address] [place] [address] IR Port Placement (06/12/2018 12:54 PM CDT) Narrative Performed At PROCEDURE: [facility] Subcutaneous right chest port placement Performing Radiologist: Barrie Ann MD Assistants: None Pre Procedure Diagnosis: C34.91 Malignant neoplasm of unspecified part of right bronchus or lung, C34.92 Malignant neoplasm of unspecified part of left bronchus or lung, Bilateral Lung Cancer Post Procedure Diagnosis: C34.91 Malignant neoplasm of unspecified part of right bronchus or lung, C34.92 Malignant neoplasm of unspecified part of left bronchus or lung, Bilateral Lung Cancer Indication: Chemotherapy Complications: No immediate post procedure complications. IMPRESSION: 1.Technically successful fluoroscopic-guided placement of a subcutaneous power-injectable, single lumen right chest port via the right internal jugular vein. The tip of the catheter lies at the right atrium/superior vena cava junction. 2.The port was left accessed. 3.The right internal jugular vein is patent and compressible on preprocedure ultrasound. PLAN: The port is ready for immediate use. PROCEDURE SUMMARY: 1.Venous access with ultrasound guidance 2.Port insertion under fluoroscopic guidance PROCEDURE DETAILS: Pre-procedure: Comparison studies: None Written and informed consent for the procedure and monitored conscious sedation was obtained from the patient. Prophylactic antibiotics: Ancef was given approximately 1 hour prior to the procedure. Preparation: The right anterior chest wall and neck was prepared and draped using all elements of maximal sterile barrier technique including sterile gloves, sterile gown, catheter, mask, large sterile sheet, sterile ultrasound probe cover, hand hygiene and cutaneous antisepsis using chlorhexidine. Anesthesia/Sedation: Level of anesthesia: None (lidocaine) Medications used: 1% lidocaine and lidocaine with epinephrine Pain medication administration: Pulse oximetry, heart rate, and blood pressure were continuously monitored by a radiology nurse and the performing provider. Duration of intraservice [id number] anesthesia/sedation: N/A Access: Local anesthesia was administered. The right internal jugular vein was evaluated with preprocedure ultrasound and noted to be patent. Real-time ultrasound was used to visualize needle entry into the vessel and a permanent image was stored. A 0.035 inch J-wire was advanced into the inferior vena cava and an image was archived. Access technique: 5 [place] micropuncture set Venography: Vein catheterized: N/A Indication for venography: Not performed Findings: N/A Port placement: An incision was made over the chest wall, and a subcutaneous pocket was created using blunt dissection. The catheter was tunneled subcutaneously to the venous access site and trimmed to the appropriate length. The port was then inserted into the pocket and the catheter was advanced via the peel-away sheath into the vein under fluoroscopic guidance. An image was archived demonstrating the position of the catheter tip. Port placed: Angioapprupt Smart Port Catheter size: 8 [place] Catheter flush: Heparin (100 units/mL) Closure: The incision was closed using a deep layer of interrupted 3-0 Vicryl sutures, 4-0 Monocryl running subcuticular sutures and Dermabond. Sterile bandages were applied. Access site closure technique: Dermabond Incision closure technique: Absorbable suture and Dermabond Contrast: Contrast agent: None Contrast volume: N/A Radiation dose: 5 mGy Additional details: Additional description of procedure: N/A Additional findings: N/A Equipment details: N/A Estimated blood loss: Less than 10 cc [facility]-[id number] Procedure Note [facility], Radiology Results Incoming - 06/12/2018 5:31 PM CDT PROCEDURE: Subcutaneous right chest port placement Performing Radiologist: Barrie Ann MD Assistants: None Pre Procedure Diagnosis: C34.91 Malignant neoplasm of unspecified part of right bronchus or lung, C34.92 Malignant neoplasm of unspecified part of left bronchus or lung, Bilateral Lung Cancer Post Procedure Diagnosis: C34.91 Malignant neoplasm of unspecified part of right bronchus or lung, C34.92 Malignant neoplasm of unspecified part of left bronchus or lung, Bilateral Lung Cancer Indication: Chemotherapy Complications: No immediate post procedure complications. IMPRESSION: 1. Technically successful fluoroscopic-guided placement of a subcutaneous power-injectable, single lumen right chest port via the right internal jugular vein. The tip of the catheter lies at the right atrium/superior vena cava junction. 2. The port was left accessed. 3. The right internal jugular vein is patent and compressible on preprocedure ultrasound. PLAN: The port is ready for immediate use. PROCEDURE SUMMARY: 1. Venous access with ultrasound guidance 2. Port insertion under fluoroscopic guidance PROCEDURE DETAILS: Pre-procedure: Comparison studies: None Written and informed consent for the procedure and monitored conscious sedation was obtained from the patient. Prophylactic antibiotics: Ancef was given approximately 1 hour prior to the procedure. Preparation: The right anterior chest wall and neck was prepared and draped using all elements of maximal sterile barrier technique including sterile gloves , sterile gown, catheter, mask, large sterile sheet, sterile ultrasound probe cover, hand hygiene and cutaneous antisepsis using chlorhexidine. Anesthesia/Sedation: Level of anesthesia: None (lidocaine) Medications used: 1% lidocaine and lidocaine with epinephrine Pain medication administration: Pulse oximetry, heart rate, and blood pressure were continuously monitored by a radiology nurse and the performing provider. Duration of intraservice [id number] anesthesia/sedation: N/A Access: Local anesthesia was administered. The right internal jugular vein was evaluated with preprocedure ultrasound and noted to be patent. Real-time ultrasound was used to visualize needle entry into the vessel and a permanent image was stored. A 0.035 inch J-wire was advanced into the inferior vena cava and an image was archived. Access technique: 5 [place] micropuncture set Venography: Vein catheterized: N/A Indication for venography: Not performed Findings: N/A Port placement: An incision was made over the chest wall, and a subcutaneous pocket was created using blunt dissection. The catheter was tunneled subcutaneously to the venous access site and trimmed to the appropriate length. The port was then inserted into the pocket and the catheter was advanced via the peel-away sheath into the vein under fluoroscopic guidance. An image was archived demonstrating the position of the catheter tip. Port placed: [employer] Smart Port Catheter size: 8 [place] Catheter flush: Heparin (100 units/mL) Closure: The incision was closed using a deep layer of interrupted 3-0 Vicryl sutures, 4 -0 Monocryl running subcuticular sutures and Dermabond. Sterile bandages were applied. Access site closure technique: Dermabond Incision closure technique: Absorbable suture and Dermabond Contrast: Contrast agent: None Contrast volume: N/A Radiation dose: 5 mGy Additional details: Additional description of procedure: N/A Additional findings: N/A Equipment details: N/A Estimated blood loss: Less than 10 cc [facility]-[id number] Performing Organization Address [facility] [place] [facility] Phone Number [facility] [address] [place] [address] POC glucose (06/12/2018 11:10 AM CDT)Only the most recent of21 resultswithin the time period is included. POC glucose 128 (H) 65 - 99 mg/dL [facility] DEPARTMENT OF PATHOLOGY AND Comment: GENOMIC MEDICINE No Action Needed [facility] Notified RN Meter ID: [id number] Rating Examiner: Per Barnes Performing Organization Address [facility]/Zipcode Phone Number [facility] DEPARTMENT OF PATHOLOGY AND [address] [place] [address] GENOMIC MEDICINE OR [place] < 1 Hour (06/09/2018 8:35 AM CDT) Narrative Performed At IMPRESSION: C-arm fluoroscopy under one hour was provided in the OR for RADIANT the referring physician. A radiologist was not present during the procedure. Refer to the Operative report issued by the performing provider for procedure details. LOCATION: [facility] OR # 10 PROCEDURE: Pain pump START: 0820am END:0835am FLUORO TIME: 16secs DOSE (mGy) : 10.67 TECH: Fareed Ng [id number] Procedure Note Hm Interface, Radiology Results Incoming - 06/09/2018 12:15 PM CDT IMPRESSION: C-arm fluoroscopy under one hour was provided in the OR for the referring physician. A radiologist was not present during the procedure. Refer to the Operative report issued by the performing provider for procedure details. LOCATION: [facility] # 10 PROCEDURE: Pain pump START: 0820am END: 0835am FLUORO TIME: 16secs DOSE (mGy) : 10.67 TECH: Fareed Ng [id number] Performing Organization Address [facility] [place] Phone Number [address] [address] Basic metabolic panel (06/09/2018 6:30 AM CDT)Only the most recent of7 resultswithin the time period is included. Sodium 138 135 - 148 mEq/L [facility] DEPARTMENT OF PATHOLOGY AND GENOMIC MEDICINE Potassium 4.1 3.5 - 5.0 mEq/L [facility] DEPARTMENT OF PATHOLOGY AND GENOMIC MEDICINE Chloride 99 98 - 112 mEq/L [facility] DEPARTMENT OF PATHOLOGY AND GENOMIC MEDICINE CO2 25 24 - 31 mEq/L [facility] DEPARTMENT OF PATHOLOGY AND GENOMIC MEDICINE Anion gap 14@ANIO 7 - 15 mEq/L [facility] DEPARTMENT OF PATHOLOGY AND GENOMIC MEDICINE BUN 29 (H) 6 - 20 mg/dL [facility] DEPARTMENT OF PATHOLOGY AND GENOMIC MEDICINE Creatinine 0.97 (H) 0.50 - 0.90 mg/dL [facility] DEPARTMENT OF PATHOLOGY AND GENOMIC MEDICINE Glucose 125 (H) 65 - 99 mg/dL [facility] DEPARTMENT OF PATHOLOGY AND GENOMIC MEDICINE Calcium 9.8 8.3 - 10.2 mg/dL [facility] DEPARTMENT OF PATHOLOGY AND GENOMIC MEDICINE Specimen Plasma specimen Performing Organization Address City/[facility] Phone Number [facility] DEPARTMENT OF PATHOLOGY AND [address] [place] [phone] [employer] [facility] Prothrombin time with INR (05/23/2018 2:21 PM CDT)Only the most recent of2 resultswithin the time period is included. Prothrombin time 12.8 12.0 - 15.0 sec [facility] DEPARTMENT OF PATHOLOGY AND GENOMIC MEDICINE INR 1.0 [facility] DEPARTMENT OF Comment: PATHOLOGY AND GENOMIC The International Normalized Ratio (INR) is a therapeutic MEDICINE monitoring tool for patients who are stable on oral anticoagulant therapy. An INR of 2.0-3.0 is suggested for deep vein thrombosis/pulmonary embolism. Specimen Blood Performing Organization Address City/[facility]/Zipcode Phone Number [facility] DEPARTMENT OF PATHOLOGY AND [address] [place] [phone] [facility] MEDICINE XR Chest 1 Vw Portable (04/27/2018 8:32 AM CDT)Only the most recent of6 resultswithin the time period is included. Narrative Performed At EXAMINATION:XR [facility]ST 1 [facility] CL[facility]:volume overload COMPARISON:April 25, 2018 FINDINGS: The heart is mildly enlarged. The pulmonary vasculature appears borderline althoughimproved from previous. An area of atelectasis or scar on the left is present. There is decreasing apparent pleural fluid on the right. There is no pneumothorax identified on either side. Impression: 1. Cardiomegaly, slight decrease in pulmonary vascular congestion and right effusion since previous. 2. Persistent mild basilar atelectasis. 3. No pneumothorax is identified [id number] Procedure Note Interface, Radiology Results Incoming - 04/27/2018 8:39 AM CDT EXAMINATION: XR CHEST 1 VW PORTABLE CLINICAL HISTORY: volume overload COMPARISON: April 25, 2018 FINDINGS: The heart is mildly enlarged. The pulmonary vasculature appears borderline although improved from previous. An area of atelectasis or scar on the left is present. There is decreasing apparent pleural fluid on the right. There is no pneumothorax identified on either side. Impression: 1. Cardiomegaly, slight decrease in pulmonary vascular congestion and right effusion since previous. 2. Persistent mild basilar atelectasis. 3. No pneumothorax is identified [id number] Performing Organization Address City/[facility] Phone Number [facility] [address] [place] [address] Type and screen (04/27/2018 5:00 AM CDT)Only the most recent of2 resultswithin the time period is included. ABO grouping O [facility] DEPARTMENT OF PATHOLOGY AND GENOMIC MEDICINE Rh type POS [facility] DEPARTMENT OF PATHOLOGY AND GENOMIC MEDICINE Antibody screen (gel) NEG [facility] DEPARTMENT OF PATHOLOGY AND GENOMIC MEDICINE Specimen Blood Performing Organization Address City/[facility]/Zipcode Phone Number [facility] DEPARTMENT OF PATHOLOGY AND [address] [place] [address] GENOMIC [facility] Estimated GFR (04/27/2018 4:00 AM CDT)Only the most recent of7 resultswithin the time period is included. GFR Non Af Amer 65 mL/min/1.73 m2 [facility] DEPARTMENT OF PATHOLOGY AND GENOMIC MEDICINE GFR Af Amer 79 mL/min/1.73 m2 [facility] DEPARTMENT OF Comment: PATHOLOGY AND GENOMIC Chronic kidney disease: <60 mL/min/1.73m2 MEDICINE Kidney failure: <15 mL/min/1.73m2 The estimated GFR is calculated from the IDMS-traceable Modification of Diet in Renal Disease Equation. The accuracy of the calculation is poor when the creatinine is normal. Calculated values >90 mL/min/1.73m2 are not reported. This equation has not been validated in children (<18 years), women, the elderly (>70 years), or ethnic groups other than Caucasians and Americans. Specimen Plasma specimen Performing Organization Address City/State/Zipcode Phone Number [facility] DEPARTMENT OF PATHOLOGY AND [address] [place] [address] [facility] Sputum culture (04/26/2018 12:40 PM CDT) Sputum culture isolate Normal oral mic and (A) [facility] DEPARTMENT OF Comment: PATHOLOGY AND GENOMIC Specimen Information MEDICINE Specimen Source: Sputum Specimen Site: Expectorated Sputum culture isolate Serratia marcescens [facility] DEPARTMENT OF Occasional PATHOLOGY AND GENOMIC The performance characteristics of this assay on this isolate MEDICINE were validated by the Microbiology Laboratory at [facility].This source has not been approved by the U.S. Food and Drug Administration.The results are not intended to be used as the sole means for clinical diagnosis or patient management.The Microbiology Laboratory is authorized under the clinical Laboratory Improvement Amendments of 1988 (CLIA-88) to perform high complexity testing. (A) Specimen Sputum - Expectorated Organism Antibiotic Method Susceptibility Serratia marcescens Ampicillin JOSE CRUZ >16 mcg/mL: Resistant Serratia marcescens Amoxicillin/Clavulanate JOSE CRUZ >16/8 mcg/mL: Resistant Serratia marcescens Amikacin JOSE CRUZ <=4 mcg/mL: Susceptible Serratia marcescens Aztreonam JOSE CRUZ <=1 mcg/mL: Susceptible Serratia marcescens Ceftazidime JOSE CRUZ <=0.5 mcg/mL: Susceptible Serratia marcescens Ciprofloxacin JOSE CRUZ <=0.5 mcg/mL: Susceptible Serratia marcescens Ceftriaxone JOSE CRUZ <=0.5 mcg/mL: Susceptible Serratia marcescens Cefuroxime Sodium JOSE CRUZ >16 mcg/mL: Resistant Serratia marcescens Cefazolin JOSE CRUZ >32 mcg/mL: Resistant Serratia marcescens Cefepime JOSE CRUZ <=0.5 mcg/mL: Susceptible Serratia marcescens Cefoxitin JOSE CRUZ >16 mcg/mL: Resistant Serratia marcescens Gentamicin JOSE CRUZ 1 mcg/mL: Susceptible Serratia marcescens Imipenem JOSE CRUZ 1 mcg/mL: Susceptible Serratia marcescens Levofloxacin JOSE CRUZ <=1 mcg/mL: Susceptible Serratia marcescens Meropenem JOSE CRUZ <=0.125 mcg/mL: Susceptible Serratia marcescens Tobramycin JOSE CRUZ 4 mcg/mL: Susceptible Serratia marcescens Ampicillin/Sulbactam JOSE CRUZ >16/8 mcg/mL: Resistant Serratia marcescens Tetracycline JOSE CRUZ >8 mcg/mL: Resistant Serratia marcescens Piperacillin/Tazobactam JOSE CRUZ <=4/4 mcg/mL: Susceptible Serratia marcescens Ertapenem JOSE CRUZ <=0.125 mcg/mL: Susceptible Serratia marcescens Tigecycline JOSE CRUZ 2 mcg/mL: Susceptible Serratia marcescens Trimethoprim/Sulfamethoxazole JOSE CRUZ <=0.5/9.5 mcg/mL: Susceptible Performing Organization Address [facility] Phone Number [facility] DEPARTMENT OF PATHOLOGY AND [address] [place] [phone] [employer] MEDICINE Gram stain (04/26/2018 12:40 PM CDT) Gram stain isolate Few WBC's [facility] DEPARTMENT OF PATHOLOGY Few Gram positive rods AND GENOMIC MEDICINE Few Gram positive cocci in pairs Few Gram positive cocci in clusters Comment: Specimen Information Specimen Source: Sputum Specimen Site: Expectorated Specimen Sputum - Expectorated Performing Organization Address City/[facility] [place] Phone Number [facility] DEPARTMENT OF PATHOLOGY AND [address] [place] [phone] [employer] MEDICINE Phosphorus level (04/26/2018 5:43 AM CDT)Only the most recent of5 resultswithin the time period is included. Phosphorus 3.0 2.4 - 4.5 mg/dL [facility] DEPARTMENT OF PATHOLOGY AND GENOMIC MEDICINE Specimen Plasma specimen Performing Organization Address [facility] Phone Number [facility] DEPARTMENT OF PATHOLOGY AND [address] [place] [address] GENOMIC MEDICINE ECG 12 lead (04/25/2018 9:59 PM CDT)Only the most recent of2 resultswithin the time period is included. Ventricular rate 113 [facility] MUSE Atrial rate 113 [facility]USE GA interval 140 [facility] QRSD interval 86 [facility] QT interval 326 [facility] QTC interval 447 [facility] P axis 1 35 [facility] MUSE QRS axis 1 40 [facility] MUSE T wave axis 19 [facility] MUSE EKG impression Sinus tachycardia-Otherwise normal ECG-In [facility] MUSE automated comparison with ECG of 21-APR-2018 06:06,-ST now depressed in Anterior leads- Performing Organization Address [facility] [place] Phone Number [facility] MUSE [address] [place] [address] Respiratory pathogen panel (04/25/2018 6:13 PM CDT) Respiratory pathogen Negative for all pathogens tested: [facility] DEPARTMENT OF panel Negative for Adenovirus PATHOLOGY AND GENOMIC Negative for Coronavirus HKU1 MEDICINE Negative for Coronavirus NL63 Negative for Coronavirus 229E Negative for Coronavirus OC43 Negative for Human Metapneumovirus Negative for Rhinovirus/Enterovirus Negative for Influenza A Negative for Influenza A/H1 Negative for Influenza A/H3 Negative for Influenza A/H1-2009 Negative for Influenza B Negative for Parainfluenza Virus 1 Negative for Parainfluenza Virus 2 Negative for Parainfluenza Virus 3 Negative for Parainfluenza Virus 4 Negative for Respiratory Syncytial Virus Negative for Bordetella pertussis Negative for Chlamydophila pneumoniae Negative for Mycoplasma pneumoniae This real-time PCR assay detects the presence of nucleic acids (RNA or DNA) for the respiratory pathogens listed. A result of "Not-detected" does not exclude the possibility of the presence of one or more pathogens at concentrations less than the detectable limits of the assay. Comment: Specimen Information Specimen Source: Nares Specimen Site: Left Specimen Nares - Left Performing Organization Address [facility]/Zipcode Phone Number [facility] DEPARTMENT OF PATHOLOGY AND [address] [place] [phone] [facility] Urinalysis screen and microscopy, with reflex to culture (04/23/2018 6:20 AM CDT) Specimen site Clean catch [facility] DEPARTMENT OF PATHOLOGY AND GENOMIC MEDICINE Color, UA Yellow [facility] DEPARTMENT OF PATHOLOGY AND GENOMIC MEDICINE Appearance, UA Clear [facility] DEPARTMENT OF PATHOLOGY AND GENOMIC MEDICINE Specific gravity, UA 1.020 1.001 - 1.035 [facility] DEPARTMENT OF PATHOLOGY AND GENOMIC MEDICINE pH, UA 5.0 5.0 - 8.5 [facility] DEPARTMENT OF PATHOLOGY AND GENOMIC MEDICINE Protein, UA 1+ (A) Negative [facility] DEPARTMENT OF PATHOLOGY AND GENOMIC MEDICINE Glucose, UA Negative Negative [facility] DEPARTMENT OF PATHOLOGY AND GENOMIC MEDICINE Ketones, UA Negative Negative [facility] DEPARTMENT OF PATHOLOGY AND GENOMIC MEDICINE Bilirubin, UA Negative Negative [facility] DEPARTMENT OF PATHOLOGY AND GENOMIC MEDICINE Blood, UA Moderate (A) Negative [facility] DEPARTMENT OF PATHOLOGY AND GENOMIC MEDICINE Nitrite, UA Negative Negative [facility] DEPARTMENT OF PATHOLOGY AND GENOMIC MEDICINE Urobilinogen, UA <2.0 <2.0 [facility] DEPARTMENT OF PATHOLOGY AND GENOMIC MEDICINE Leukocyte esterase, UA Negative Negative [facility] DEPARTMENT OF PATHOLOGY AND GENOMIC MEDICINE Epithelial cells, UA 10 /HPF [facility] DEPARTMENT OF PATHOLOGY AND GENOMIC MEDICINE WBC, UA 1 0 - 4 /HPF [facility] DEPARTMENT OF PATHOLOGY AND GENOMIC MEDICINE RBC, UA 2 0 - 5 /HPF [facility] DEPARTMENT OF PATHOLOGY AND GENOMIC MEDICINE Bacteria, UA None seen None seen [facility] DEPARTMENT OF PATHOLOGY AND GENOMIC MEDICINE Yeast, UA Few (A) [facility] DEPARTMENT OF PATHOLOGY AND GENOMIC MEDICINE Yeast with pseudohyphae, UA None seen [facility] DEPARTMENT OF PATHOLOGY AND GENOMIC MEDICINE Hyaline casts, UA 1 /LPF [facility] DEPARTMENT OF PATHOLOGY AND GENOMIC MEDICINE Specimen Urine Performing Organization Address City/[facility]/Zipcode Phone Number [facility] DEPARTMENT OF PATHOLOGY AND [address] [place] [phone] [employer] MEDICINE Urine culture (04/23/2018 6:20 AM CDT) Urine culture SEE COMMENTComment: Bacteriuria [facility] DEPARTMENT OF PATHOLOGY screen negative. AND GENOMIC MEDICINE Performing Organization Address City/[facility]/Zipcode Phone Number [facility] DEPARTMENT OF PATHOLOGY AND [address] [place] [phone] [facility] Blood culture, aerobic & anaerobic (04/23/2018 2:18 AM CDT)Only the most recent of2 resultswithin the time period is included. Blood culture isolate No growth after 5 days of incubation. [facility] DEPARTMENT OF Comment: PATHOLOGY AND GENOMIC Specimen Information MEDICINE Specimen Source: Blood Specimen Site: Arm Specimen Blood - Arm Performing Organization Address City/[facility] Phone Number [facility] DEPARTMENT OF PATHOLOGY AND [address] [place] [address] GENOMIC MEDICINE Surgical pathology request (04/21/2018 11:43 AM CDT)Only the most recent of10 resultswithin the time period is included. [facility] DEPARTMENT OF PATHOLOGY AND GENOMIC MEDICINE Surgical pathology See link below for PDF Lab [facility] DEPARTMENT OF report Report PATHOLOGY AND GENOMIC MEDICINE Result status This is Supplemental Report [facility] DEPARTMENT OF for [id number] PATHOLOGY AND GENOMIC MEDICINE Narrative Performed At [id number] [facility] DEPARTMENT OF PATHOLOGY AND GENOMIC NEOGENOMICS LAB MET FISH MEDICINE DOS 04/21/2018 Performing Organization Address [facility] Phone Number [facility] DEPARTMENT OF PATHOLOGY AND [address] [place] [address] GENOMIC MEDICINE Sodium level, syringe (04/21/2018 11:25 AM CDT)Only the most recent of3 resultswithin the time period is included. Sodium, syringe 138 135 - 148 mEq/L [facility] DEPARTMENT OF PATHOLOGY AND GENOMIC MEDICINE Specimen Blood Performing Organization Address [facility] Phone Number [facility] DEPARTMENT OF PATHOLOGY AND [address] [place] [address] GENOMIC MEDICINE Potassium, syringe (04/21/2018 11:25 AM CDT)Only the most recent of3 resultswithin the time period is included. Potassium, syringe 3.6 3.5 - 5.0 mEq/L [facility] DEPARTMENT OF PATHOLOGY AND GENOMIC MEDICINE Specimen Blood Performing Organization Address City/[facility] Phone Number [facility] DEPARTMENT OF PATHOLOGY AND [address] [place] [address] Ionized calcium, arterial (04/21/2018 11:25 AM CDT)Only the most recent of3 resultswithin the time period is included. Ionized calcium, arterial 1.08 (L) 1.11 - 1.32 mmol/L [facility] DEPARTMENT OF PATHOLOGY AND GENOMIC MEDICINE Specimen Blood Performing Organization Address City/[facility] Phone Number [facility] DEPARTMENT OF PATHOLOGY AND [address] [place] [address] Hemoglobin, syringe (04/21/2018 11:25 AM CDT)Only the most recent of3 resultswithin the time period is included. Hemoglobin, syringe 10.4 (L) 12.0 - 16.0 g/dL [facility] DEPARTMENT OF PATHOLOGY AND GENOMIC MEDICINE Specimen Blood Performing Organization Address [facility] Phone Number [facility] DEPARTMENT OF PATHOLOGY AND [address] [place] [address] Glucose level, syringe (04/21/2018 11:25 AM CDT)Only the most recent of3 resultswithin the time period is included. Glucose, syringe 162 (H) 65 - 99 mg/dL [facility] DEPARTMENT OF PATHOLOGY AND GENOMIC MEDICINE Specimen Blood Performing Organization Address [facility] Phone Number [facility] DEPARTMENT OF PATHOLOGY AND [address] [place] [address] Arterial blood gas (04/21/2018 11:25 AM CDT)Only the most recent of2 resultswithin the time period is included. pH, arterial 7.37 7.35 - 7.45 [facility] DEPARTMENT OF PATHOLOGY AND GENOMIC MEDICINE pCO2, arterial 46 (H) 35 - 45 mmHg [facility] DEPARTMENT OF PATHOLOGY AND GENOMIC MEDICINE pO2, arterial 122 (H) 80 - 90 mmHg [facility] DEPARTMENT OF PATHOLOGY AND GENOMIC MEDICINE Bicarbonate, arterial 25.9 21.0 - 28.0 mmol/L [facility] DEPARTMENT OF PATHOLOGY AND GENOMIC MEDICINE Base excess, arterial 1 -2 - 2 mEq/L [facility] DEPARTMENT OF PATHOLOGY AND GENOMIC MEDICINE O2 saturation, arterial 99 95 - 100 % [facility] DEPARTMENT OF PATHOLOGY AND GENOMIC MEDICINE Specimen Blood Performing Organization Address [facility] Phone Number [facility] DEPARTMENT OF PATHOLOGY AND [address] [place] [address] MEDICINE Miscellaneous referral test (04/21/2018 11:04 AM CDT)Only the most recent of2 resultswithin the time period is included. [facility] [place] test name [facility] MET FISH [facility] [place] test result SEE NOTE [facility] Comment: MET FISH Sample type: Paraffin, lung Case# [id number] RESULTS: NEGATIVE Interpretation: MET(7q31) signals per nucleus: 2.0 CEN7 signals per nucleus: 1.9 MET-CEN7 signal ratio: 1.1 An H&E stained slide was reviewed by a pathologist to identify traget areas containing invasive tumor. FISH analysis was performed within the marked target areas using a dual-probe FISH assay to detect MET overexpression. Results show no evidence of MET amplification with a MET/CEN7 ratio of <2.0. This is a NEGATIVE result. This MET FISH assay was scored manually by a certified laboratory geneticist. Two or more independent areas containing invasive tumor were analyzed and the technical results underwent further review for quality control expert purposes. Reference range: Positive: MET(7q31) to CEN7 signal ration is >/=2.0 or when 10% of tumor cells contain clusters of >15 copies per cell of MET (7q31) signals. Negative: MET(7q31) to CEN7 signal ratio is <2.0 Equivocal: MET copy number >/=5.0 and MET/CEN7 ratio <2.0 Probe set details: MET: nuc kiarra(CEN7x1.9,METx2.0)[50] Nuclei scored: 50 Test(s) performed by: [employer] [address] [place], [place] Narrative Performed At [id number] [facility] LAB MET FISH DOS 04/21/2018 Performing Organization Address City/[facility] Phone Number [facility] [address] [place] [address] Arterial blood gas, corrected (04/21/2018 7:56 AM CDT) pH, arterial 7.30 (L) 7.35 - 7.45 [facility] DEPARTMENT OF PATHOLOGY AND GENOMIC MEDICINE pCO2, arterial 59 (H) 35 - 45 mmHg [facility] DEPARTMENT OF PATHOLOGY AND GENOMIC MEDICINE pO2, arterial 182 (H) 80 - 90 mmHg [facility] DEPARTMENT OF PATHOLOGY AND GENOMIC MEDICINE Temperature, Celsius 36.0 Degrees C [facility] DEPARTMENT OF PATHOLOGY AND GENOMIC MEDICINE O2 saturation, arterial 100 95 - 100 % [facility] DEPARTMENT OF PATHOLOGY AND GENOMIC MEDICINE pH, arterial corrected 7.32 [facility] DEPARTMENT OF PATHOLOGY AND GENOMIC MEDICINE pCO2, arterial corrected 56 mmHg [facility] DEPARTMENT OF PATHOLOGY AND GENOMIC MEDICINE pO2, arterial corrected 178 mmHg [facility] DEPARTMENT OF PATHOLOGY AND GENOMIC MEDICINE Base excess, arterial 2 -2 - 2 mEq/L [facility] DEPARTMENT OF PATHOLOGY AND GENOMIC MEDICINE Specimen Blood Performing Organization Address City/[facility]/Zipcode Phone Number [facility] DEPARTMENT OF PATHOLOGY AND [address] [place] [address] [employer] MEDICINE MRI Brain W Wo Contrast (04/18/2018) Narrative Performed At Partial thromboplastin time, activated (04/11/2018 11:04 AM CDT) PTT 29.2 23.0 - 36.0 sec [facility] DEPARTMENT OF PATHOLOGY Comment: AND GENOMIC MEDICINE PTT therapeutic range for unfractionated heparin is 61.0-112.0 seconds which corresponds to Anti-Xa 0.3-0.7 U/ml. Specimen Blood Performing Organization Address City/[facility] Phone Number [facility] DEPARTMENT OF PATHOLOGY AND [address] [place] [address] [employer] Prepare RBC (04/11/2018 11:04 AM CDT) Product name Apheresis Red Cell AS3 #1 LR [facility] DEPARTMENT OF PATHOLOGY AND GENOMIC MEDICINE Unit number [id number] [facility] DEPARTMENT OF PATHOLOGY AND GENOMIC MEDICINE Product code [id number] [facility] DEPARTMENT OF PATHOLOGY AND GENOMIC MEDICINE Dispense status Returned to not [facility] DEPARTMENT OF transfused PATHOLOGY AND GENOMIC MEDICINE Blood expiration date [facility] DEPARTMENT OF PATHOLOGY AND GENOMIC MEDICINE Blood type code 5100 [facility] DEPARTMENT OF PATHOLOGY AND GENOMIC MEDICINE Blood type O POSITIVE [facility] DEPARTMENT OF PATHOLOGY AND GENOMIC MEDICINE Product name Red Blood Cells -1, [facility] DEPARTMENT OF Leukored PATHOLOGY AND GENOMIC MEDICINE Unit number [id number] [facility] DEPARTMENT OF PATHOLOGY AND GENOMIC MEDICINE Product code [id number] [facility] DEPARTMENT OF PATHOLOGY AND GENOMIC MEDICINE Dispense status Returned to not [facility] DEPARTMENT OF transfused PATHOLOGY AND GENOMIC MEDICINE Blood expiration date [facility] DEPARTMENT OF PATHOLOGY AND GENOMIC MEDICINE Blood type code 5100 [facility] DEPARTMENT OF PATHOLOGY AND GENOMIC MEDICINE Blood type O POSITIVE [facility] DEPARTMENT OF PATHOLOGY AND GENOMIC MEDICINE Performing Organization Address [facility] Phone Number [facility] DEPARTMENT OF PATHOLOGY AND [address] [place] [address] [employer] [facility] XR Chest 1 Vw (04/06/2018 11:48 AM CDT)Only the most recent of3 resultswithin the time period is included. Narrative Performed At EXAMINATION:XR CHEST 1 VW [facility] CLINICAL HISTORY:R91.8 Other nonspecific abnormal finding of lung field, Pneumothoraxknownfollow up, post left lung biopsy COMPARISON:March 06, 2018 IMPRESSION: 1.Heart size within normal limits. 2.No infiltrates or effusions are seen. Vessels are not congested. 3.Paraspinal density in the right upper chest and peripheral nodule in the left upper lobe have been better evaluated on prior CT scan from March 06. These have probably not changed in the interval. [id number] Procedure Note Hm Interface, Radiology Results Incoming - 04/06/2018 12:33 PM CDT EXAMINATION: XR CHEST 1 VW CLINICAL HISTORY: R91.8 Other nonspecific abnormal finding of lung field, Pneumothorax known follow up, post left lung biopsy COMPARISON: March 06, 2018 IMPRESSION: 1. Heart size within normal limits. 2. No infiltrates or effusions are seen. Vessels are not congested. 3. Paraspinal density in the right upper chest and peripheral nodule in the left upper lobe have been better evaluated on prior CT scan from March 06. These have probably not changed in the interval. [id number] Performing Organization Address City/State/Zipcode Phone Number [facility] [address] [place] [address] CT Needle Biopsy No Contrast (04/06/2018 10:13 AM CDT)Only the most recent of2 resultswithin the time period is included. Narrative Performed At EXAMINATION:CT NEEDLE BIOPSY NO CONTRAST [facility] CLINICAL HISTORY:R91.8 Other nonspecific abnormal finding of lung field, C34.90 COMPARISON:None. TECHNIQUE: The risks and benefits of procedure were discussed the patient. Informed consent was obtained. Residual timeout was performed. Procedure chest CT confirmed a 12 mm nodule in the left upper lobe, which was targeted for biopsy. The skin was sterilely prepped and draped in usual fashion. 1% buffered lidocaine was used for local anesthesia. Under CT guidance, a 19-gauge guide needle was inserted percutaneously via a posterior approach into the left upper lobe nodule. The inner stylet was removed, and 2 core biopsy specimens were obtained using a 20-gauge core biopsy needle. Specimens were checked for adequacy by pathology. The needle was removed and a bandage was applied. Postprocedural CT demonstrated a trace pneumothorax adjacent to the biopsy site, and a small amount of hemorrhage surrounding the nodule. The patient tolerated the procedure well, there were no palpitations. Moderate monitored sedation was achieved with 2.5 mg of IV Versed, 50 mcg of IV fentanyl, for a total intraservice sedation time of 50 minutes. IMPRESSION: Uncomplicated CT-guided left upper lobe nodule biopsy. Trace pneumothorax at CT was followed radiographically, demonstrating no radiographically visible pneumothorax, and the patient remained isn't metastatic during the observation period. [facility]-[id number] Procedure Note Hm Interface, Radiology Results Incoming - 04/06/2018 3:11 PM CDT EXAMINATION: CT NEEDLE BIOPSY NO CONTRAST CLINICAL HISTORY: R91.8 Other nonspecific abnormal finding of lung field, C34.90 COMPARISON: None. TECHNIQUE: The risks and benefits of procedure were discussed the patient. Informed consent was obtained. Residual timeout was performed. Procedure chest CT confirmed a 12 mm nodule in the left upper lobe, which was targeted for biopsy. The skin was sterilely prepped and draped in usual fashion. 1% buffered lidocaine was used for local anesthesia. Under CT guidance, a 19-gauge guide needle was inserted percutaneously via a posterior approach into the left upper lobe nodule. The inner stylet was removed , and 2 core biopsy specimens were obtained using a 20-gauge core biopsy needle. Specimens were checked for adequacy by pathology. The needle was removed and a bandage was applied. Postprocedural CT demonstrated a trace pneumothorax adjacent to the biopsy site , and a small amount of hemorrhage surrounding the nodule. The patient tolerated the procedure well, there were no palpitations. Moderate monitored sedation was achieved with 2.5 mg of IV Versed, 50 mcg of IV fentanyl, for a total intraservice sedation time of 50 minutes. IMPRESSION: Uncomplicated CT-guided left upper lobe nodule biopsy. Trace pneumothorax at CT was followed radiographically, demonstrating no radiographically visible pneumothorax, and the patient remained isn't metastatic during the observation period. [facility]-[id number] Performing Organization Address City/State/Zipcode Phone Number [facility] [address] [place] [address] Cytology (non-gynecological) request (04/06/2018 9:35 AM CDT)Only the most recent of2 resultswithin the time period is included. [facility] DEPARTMENT OF PATHOLOGY AND GENOMIC MEDICINE Cytology See link below for PDF [facility] DEPARTMENT OF (non-gynecological) report Lab Report PATHOLOGY AND GENOMIC MEDICINE Result status This is Final Report to [facility] DEPARTMENT OF [id number] PATHOLOGY AND GENOMIC MEDICINE Performing Organization Address City/State/Zipcode Phone Number [facility] DEPARTMENT OF PATHOLOGY AND [address] [place] [address] GENOMIC MEDICINE PET/CT Skull Base To Mid Thigh (03/28/2018 11:53 AM CDT) Narrative Performed At PROCEDURE:PET CT SKULL BASE TO MID THIGH [facility] INDICATION:Initial staging lung cancer. TECHNIQUE:Blood glucose measured at the time of injection was 97 mg/dL. The patient was then injected with 13.2 mCi of 18F-FDG, IV.Approximately one hour later, PET images were acquired from the skull base to the mid thighs. Corresponding, low dose, non-contrast CT scanning was performed as part of the attenuation correction process.Automated dose exposure control was utilized. COMPARISON:Chest CT dated 03/06/2018, outside PET/CT scan dated 01/12/2018. FINDINGS: Head and neck:No suspicious brain uptake.Normal uptake is seen in the visualized sinuses, orbits, nasopharynx, and oropharynx.Uptake by the larynx is normal.No suspicious neck lymph node uptake. Chest:No abnormal mediastinal, hilar, or axillary lymph node uptake.Subpleural right upper lobe mass demonstrates mild uptake, with an SUV of 2.3.Subpleural left upper lobe nodule demonstrates relatively low levels of uptake.The maximum SUV is 1.3. Abdomen:Normal uptake is seen in the stomach, spleen, pancreas, liver, and adrenal glands.No abnormal retroperitoneal or mesenteric lymph node uptake.Physiologic bowel uptake. Pelvis:Physiologic bowel uptake.No abnormal pelvic sidewall or inguinal lymph node uptake. Review of the osseous structures demonstrates no suspicious uptake. IMPRESSION: 1.Subpleural right upper lobe mass and left upper lobe nodule demonstrates mild uptake, suggesting low-grade adenocarcinoma.Left upper lobe lesion could reflect metastatic disease or synchronous primary malignancy. 2.No evidence for lymph node metastasis in the chest or distant metastasis outside the chest. [facility]-[id number] Procedure Note Interface, Radiology Results - 03/28/2018 2:31 PM CDT PROCEDURE: PET CT SKULL BASE TO MID THIGH INDICATION: Initial staging lung cancer. TECHNIQUE: Blood glucose measured at the time of injection was 97 mg/dL. The patient was then injected with 13.2 mCi of 18F-FDG, IV. Approximately one hour later, PET images were acquired from the skull base to the mid thighs. Corresponding, low dose, non-contrast CT scanning was performed as part of the attenuation correction process. Automated dose exposure control was utilized. COMPARISON: Chest CT dated 03/06/2018, outside PET/CT scan dated 01/12/2018. FINDINGS: Head and neck: No suspicious brain uptake. Normal uptake is seen in the visualized sinuses, orbits, nasopharynx, and oropharynx. Uptake by the larynx is normal. No suspicious neck lymph node uptake. Chest: No abnormal mediastinal, hilar, or axillary lymph node uptake. Subpleural right upper lobe mass demonstrates mild uptake, with an SUV of 2.3. Subpleural left upper lobe nodule demonstrates relatively low levels of uptake. The maximum SUV is 1.3. Abdomen: Normal uptake is seen in the stomach, spleen, pancreas, liver, and adrenal glands. No abnormal retroperitoneal or mesenteric lymph node uptake. Physiologic bowel uptake. Pelvis: Physiologic bowel uptake. No abnormal pelvic sidewall or inguinal lymph node uptake. Review of the osseous structures demonstrates no suspicious uptake. IMPRESSION: 1. Subpleural right upper lobe mass and left upper lobe nodule demonstrates mild uptake, suggesting low-grade adenocarcinoma. Left upper lobe lesion could reflect metastatic disease or synchronous primary malignancy. 2. No evidence for lymph node metastasis in the chest or distant metastasis outside the chest. [facility]-[id number] Performing Organization Address City/State/Zipcode Phone Number [facility] [address] [place] [address] CT Chest Wo Contrast (03/06/2018 8:25 AM CDT)Only the most recent of2 resultswithin the time period is included. Narrative Performed At EXAMINATION: [employer] CT CHEST WO CONTRAST CLINICAL HISTORY: Shortness of breath TECHNIQUE:Multiple axial images of the chest were obtained without intravenous contrast. The lack of intravenous contrast reduces the sensitivity of detecting solid organ disease and evaluating vasculature. Sagittal and coronal computerized reformatted images were also obtained. CT imaging was performed with iterative reconstruction techniques and/or automated exposure control to reduce radiation dose. COMPARISON: To an outside CT examination from 12/28/2017, as well as a PET examination from 01/12/2018 IMPRESSION: 1.There is no evidence of hilar or mediastinal lymphadenopathy. Patient status post cholecystectomy without evidence of biliary ductal dilatation. 2.A 3 cm mass in the right upper lobe is present, without significant interval change from the previous examinations. 3.A 7 mm nodule in the left upper lobe adjacent to the posterior pleura is also unchanged. 4.Note is also made of an area of groundglass attenuation in the right upper lobe lateral to the mass, and this also appears to be probably unchanged. 5.Arthritic changes are noted involving the spine. There are also questionable areas of possible osteolytic metastatic disease involving midthoracic vertebral bodies (sagittal image 40), but these may simply be related to arthritic changes. Correlation with MRI bone survey may be of benefit. [facility]-[id number] Procedure Note Interface, Radiology Results Incoming - 03/06/2018 9:41 AM CDT EXAMINATION: CT CHEST WO CONTRAST CLINICAL HISTORY: Shortness of breath TECHNIQUE: Multiple axial images of the chest were obtained without intravenous contrast. The lack of intravenous contrast reduces the sensitivity of detecting solid organ disease and evaluating vasculature. Sagittal and coronal computerized reformatted images were also obtained. CT imaging was performed with iterative reconstruction techniques and/or automated exposure control to reduce radiation dose. COMPARISON: To an outside CT examination from 12/28/2017, as well as a PET examination from 01/12/2018 IMPRESSION: 1. There is no evidence of hilar or mediastinal lymphadenopathy. Patient status post cholecystectomy without evidence of biliary ductal dilatation. 2. A 3 cm mass in the right upper lobe is present, without significant interval change from the previous examinations. 3. A 7 mm nodule in the left upper lobe adjacent to the posterior pleura is also unchanged. 4. Note is also made of an area of groundglass attenuation in the right upper lobe lateral to the mass, and this also appears to be probably unchanged. 5. Arthritic changes are noted involving the spine. There are also questionable areas of possible osteolytic metastatic disease involving midthoracic vertebral bodies (sagittal image 40), but these may simply be related to arthritic changes. Correlation with MRI bone survey may be of benefit. [facility]-[id number] Performing Organization Address City/State/Zipcode Phone Number [facility] [address] [place] [address] Pulmonary function tests, complete (02/08/2018) Narrative Performed At PET/CT Whole Body External Study (01/12/2018 10:59 AM CDT) Narrative Performed At This exam was not acquired at a [employer] facility and has not been [facility] interpreted by a [employer] Provider.The exam was imported into our imaging system for comparisons purposes. Performing Organization Address City/[facility] Phone Number [facility] [address] [place] [address] PET/CT Skull Base Mid Thigh External Study (01/12/2018) Narrative Performed At CT Chest External Study (12/28/2017 4:32 PM CDT) Narrative Performed At This exam was not acquired at a [employer] facility and has not been [facility] interpreted by a [employer] Provider.The exam was imported into our imaging system for comparisons purposes. Performing Organization Address City/[facility] Phone Number [facility] [address] [place] [address] after 08/03/2017 Insurance Payer Benefit Plan / Group Subscriber ID Type Phone Address MEDICARE MEDICARE PART A AND B xxxxxxxxxxx Medicare [place], [place] ([place]) [place] [address] Advance Directives Patient has advance care planning documents on file. For more information, please contact:[facility] [place] [address]
[2018-08-04 23:50] LABS: Urine Blood TRACE (NEG); Urine Glucose NEGATIVE (NEG); Urine Protein TRACE (NEG); Urine Specific Gravity 1.015 (1.005-1.030); Urine pH 5.5 (5.0-7.0)
[2018-08-05] MEDS ORDERED: NA CHLORIDE 0.9% 1,000 ML ONE ×2 (00:26→02:40)
[2018-08-05 00:38] LABS: Urine Culture Reflex Order NOT NEEDED; Urine Mucus 1+ /HPF (NONE SEEN)
[2018-08-05 00:41] LABS: Urine Bacteria 20-50 /HPF (<20); Urine RBC NONE SEEN /HPF (NONE SEEN)
[2018-08-05] MEDS ORDERED: ONDANSETRON 4 MG/2 ML VIAL ONE (01:03)
[2018-08-05 01:04] LABS: Absolute Lymphocytes (CBC) 1.7 K/uL (0.7-4.9); Absolute Monocytes 0.2 K/uL (0.1-1.3); Absolute Neutrophil 1.3 K/uL (1.8-8.0); Eosinophils % 2.4 % (0-4.4); Lymphocytes % 53.1 % (15.3-44.8); MCH 27.6 pg (27.0-35.0); MCV 80.5 fL (80-100); MPV 7.8 fL (7.6-11.3); Monocytes % 5.8 % (3.3-12.3); RBC Red Blood Cell Count 3.36 M/uL (3.86-4.86)
[2018-08-05 01:14] LABS: ALT/SGPT 19 U/L (12-78); AST/SGOT 19 U/L (15-37); Albumin 3.5 g/dL (3.4-5.0); Alkaline Phosphatase 74 U/L (45-117); BUN Blood Urea Nitrogen 23 mg/dL (7-18); Bicarbonate 23 mmol/L (21-32); Bilirubin Direct < 0.1 mg/dL (0-0.2); Bilirubin Total 0.3 mg/dL (0.2-1.0); Glucose Level 92 mg/dL (74-106); Lipase 129 U/L (73-393); Potassium 3.5 mmol/L (3.5-5.1); Protein, Total 7.5 g/dL (6.4-8.2); Sodium Level 138 mmol/L (136-145)
[2018-08-05] MEDS ORDERED: CEFTRIAXONE/SWI 1gm 1 GM/10 ML SYR ONE (02:40)
--- NOTE | 2018-08-05 02:43 | ER ---
Nurse's Notes [facility] Name: Anisha Lindsay Age: 52 yrs Sex: Female : 1965 Arrival Date: 08/04/2018 Time: 22:15 Bed 6 Private MD: Diagnosis: Diarrhea, unspecified;Acute tubulo-interstitial nephritis Presentation: 08/04 22:22 Presenting complaint: Patient states: She had a chemo treatment on the for Stage 4 aj1 Lung Cancer, she was okay for the first few days after. Today she had 12 bowel movements, she's tried Immodium. She called Dr. Carrera, her oncologist and she advised her to come to the emergency room. Patient reports N/V/D, dizziness. Patient states that she feels "foggy". Patient states that she thinks she has been running fever, but she isn't sure because she has been taking Tylenol. Transition of care: patient was not received from another setting of care. Onset of symptoms was July 29, 2018. Risk Assessment: Do you want to hurt yourself or someone else? Patient reports no desire to harm self or others. Initial Sepsis Screen: Does the patient meet any 2 criteria? No. Patient's initial sepsis screen is negative. Does the patient have a suspected source of infection? No. Patient's initial sepsis screen is negative. Care prior to arrival: None. 22:22 Method Of Arrival: Ambulatory aj 22:22 Acuity: CHEN 2 aj1 Triage Assessment: 22:31 General: Appears in no apparent distress. comfortable, Behavior is calm, cooperative, aj1 appropriate for age. Pain: Pain currently is 5 out of 10 on a pain scale. Neuro: Level of Consciousness is awake, alert, obeys commands. Cardiovascular: Patient's skin is warm and dry. Respiratory: Airway is patent Respiratory effort is even, unlabored, Respiratory pattern is regular, symmetrical. GI: Reports diarrhea, nausea, vomiting. 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 LMP N/A - Hysterectomy aj1 Historical: - Allergies: 22:31 Celebrex; aj1 22:31 Demerol; aj1 - Home Meds: 22:31 Folic Acid Oral [Active]; gabapentin oral oral [Active]; Albuterol Inhl [Active]; aj1 levothyroxine 50 mcg oral tab [Active]; Metoprolol Tartrate Oral [Active]; Ofloxacin Otic [Active]; Protonix Oral [Active]; tizanidine oral oral [Active]; sertraline oral oral [Active]; Colestid Oral [Active]; - PMHx: 22:31 CHF; Hypertension; Hypothyroidism; Rheumatoid Arthritis; Stage 4 Lung Cencer- currently aj1 on Chemo; Myocardial infarction; - PSHx: 22:31 right upper lobectomy; portacath; pain pump; aj1 - Immunization history:: Flu vaccine is not up to date. - Social history:: Smoking status: Patient/guardian denies using tobacco. - Ebola Screening: : Patient denies travel to an Ebola-affected area in the 21 days before illness onset. Screenin:41 Abuse screen: Denies threats or abuse. Denies injuries from another. Nutritional lp1 screening: No deficits noted. Tuberculosis screening: No symptoms or risk factors identified. Fall Risk None identified. Assessment: 23:00 General: Appears in no apparent distress. Behavior is appropriate for age. Pain: lp1 Complains of pain in suprapubic area Pain currently is 6 out of 10 on a pain scale. Quality of pain is described as burning. Neuro: Level of Consciousness is awake, alert, obeys commands, Oriented to person, place, time, situation. Cardiovascular: Patient's skin is warm and dry. Respiratory: Respiratory effort is even, unlabored. GI: Abdomen is non-distended, Parent/caregiver reports the patient having cramping, diarrhea. : Parent/caregiver report the patient having pain in suprapubic area urinary frequency urgency. EENT: No signs and/or symptoms were reported regarding the EENT system. Derm: Skin is pink, warm \\T\\ dry. Musculoskeletal: Circulation, motion, and sensation intact. 08/05 00:00 Reassessment: Patient appears in no apparent distress at this time. Patient and/or lp1 family updated on plan of care and expected duration. Pain level reassessed. Patient is alert, oriented x 3, equal unlabored respirations, skin warm/dry/pink. 01:00 Reassessment: Provider notified of patient complaint of nausea. lp1 02:00 Reassessment: Patient is alert, oriented x 3, equal unlabored respirations, skin lp1 warm/dry/pink. Patient states nausea improved. Vital Signs: 08/04 22:31 BP 152 / 92; Pulse 87; Resp 18; Temp 97.4; Pulse Ox 100% on R/A; Weight 99.79 kg (R); aj1 Height 5 ft. 2 in. (157.48 cm) (R); Pain 5/10; 23:34 BP 127 / 66; Pulse 78; Resp 16; Pulse Ox 100% on R/A; lp1 08/05 02:30 BP 120 / 59; Pulse 76; Resp 16; Pulse Ox 100% on R/A; lp1 08/04 22:31 Body Mass Index 40.24 (99.79 kg, 157.48 cm) aj1 ED Course: 08/04 22:15 Patient arrived in ED. es 22:27 Triage completed. aj1 22:32 Arm band placed on Patient placed in an exam room. aj1 22:40 Carmen Demarco, RN is Primary Nurse. lp1 22:41 Patient has correct armband on for positive identification. lp1 23:39 Kervin Franklin MD is Attending Physician. 08/05 00:45 Accessed Port-a-Cath. using accessed w/ # 20 Kahn needle, ,sterile technique, per [address] protocol. Good blood return. Flushes easily. 01:[address] via wheelchair. kw1 01:31 CT completed. Patient tolerated procedure well. Patient moved back from [place]. kw1 02:44 No provider procedures requiring assistance completed. lp1 03:32 IV discontinued, No redness/swelling at site. Pressure dressing applied. 1 Administered Medications: 00:52 Drug: NS 0.9% 1000 ml Route: IV; Rate: 1 bolus; Site: Port-a-cath; lp1 02:43 Follow up: IV Status: Completed infusion; IV Intake: 1000ml lp1 01:01 Drug: Zofran 4 mg Route: IVP; Site: Port-a-cath; lp1 01:45 Follow up: Response: Nausea is decreased lp1 02:43 Drug: NS 0.9% 1000 ml Route: IV; Rate: 1 bolus; Site: Port-a-cath; lp1 03:31 Follow up: IV Status: IV converted to saline lock lp1 02:43 Drug: Rocephin - (cefTRIAXone) 1 grams Route: IVPB; Infused Over: 30 mins; Site: lp1 Port-a-cath; 03:15 Follow up: IV Status: Completed infusion; IV Intake: 10ml lp1 03:30 Drug: HEParin Flush 500 units Route: IVP; Site: Port-a-cath; lp1 03:31 Follow up: Response: Medication administered at discharge. lp1 Intake: 02:43 IV: 1000ml; Total: 1000ml. lp1 03:15 IV: 10ml; Total: 1010ml. 1 Outcome: 02:42 Discharge ordered by . 03:32 Discharged to home ambulatory. 1 03:32 Condition: good 03:32 Discharge instructions given to patient, Instructed on discharge instructions, follow up and referral plans. medication usage, Demonstrated understanding of instructions, follow-up care, medications, Prescriptions given X 2. 03:32 Patient left the ED. lp1 Addendum: 08/07/2018 16:32 Addendum: Culture Results: Positive urine culture. No further action required. Bacteria i w sensitive to prescribed antibiotic. Signatures: Antonella Albarado RN RN aj1 Nanci Paul Irene, RN RN Carmen Demarco RN RN lp1 Kervin Franklin MD MD Anisha Serra kw1
--- NOTE | 2018-08-05 02:44 | EDPHYS ---
Physician Documentation [facility] Name: Anisha Lindsay Age: 52 yrs Sex: Female : 1965 Arrival Date: 08/04/2018 Time: 22:15 Bed 6 Private MD: ED Physician Kervin Franklin HPI: 08/05 02:40 This 52 yrs old Female presents to ER via Ambulatory with complaints of gs Diarrhea, POSSIBLD UTI. 02:40 The patient presents to the emergency department with diarrhea. Onset: The gs symptoms/episode began/occurred 2 day(s) ago. Possible causes: unknown. The symptoms are aggravated by nothing. The symptoms are alleviated by nothing. Associated signs and symptoms: Pertinent negatives: fever. Severity of symptoms: At their worst the symptoms were moderate in the emergency department the symptoms are unchanged. The patient has experienced similar episodes in the past, a few times. 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 - Hysterectomy aj1 Historical: - Allergies: 22:31 Celebrex; aj1 22:31 Demerol; aj1 - Home Meds: 22:31 Folic Acid Oral [Active]; gabapentin oral oral [Active]; Albuterol Inhl [Active]; aj1 levothyroxine 50 mcg oral tab [Active]; Metoprolol Tartrate Oral [Active]; Ofloxacin Otic [Active]; Protonix Oral [Active]; tizanidine oral oral [Active]; sertraline oral oral [Active]; Colestid Oral [Active]; - PMHx: 22:31 CHF; Hypertension; Hypothyroidism; Rheumatoid Arthritis; Stage 4 Lung Cencer- currently aj1 on Chemo; Myocardial infarction; - PSHx: 22:31 right upper lobectomy; portacath; pain pump; aj1 - Immunization history:: Flu vaccine is not up to date. - Social history:: Smoking status: Patient/guardian denies using tobacco. - Ebola Screening: : Patient denies travel to an Ebola-affected area in the 21 days before illness onset. ROS: 08/05 02:40 : Positive for urinary symptoms. gs All other systems are negative. Exam: 02:40 Head/Face: Normocephalic, atraumatic. Eyes: Pupils equal round and reactive to light, gs extra-ocular motions intact. Lids and lashes normal. Conjunctiva and sclera are non-icteric and not injected. Cornea within normal limits. Periorbital areas with no swelling, redness, or edema. ENT: Nares patent. No nasal discharge, no septal abnormalities noted. Tympanic membranes are normal and external auditory canals are clear. Oropharynx with no redness, swelling, or masses, exudates, or evidence of obstruction, uvula midline. Mucous membranes moist. Neck: Trachea midline, no thyromegaly or masses palpated, and no cervical lymphadenopathy. Supple, full range of motion without nuchal rigidity, or vertebral point tenderness. No Meningismus. Chest/axilla: Normal chest wall appearance and motion. Nontender with no deformity. No lesions are appreciated. Cardiovascular: Regular rate and rhythm with a normal S1 and S2. No gallops, murmurs, or rubs. Normal PMI, no JVD. No pulse deficits. Respiratory: Lungs have equal breath sounds bilaterally, clear to auscultation and percussion. No rales, rhonchi or wheezes noted. No increased work of breathing, no retractions or nasal flaring. 02:40 Skin: Warm, dry with normal turgor. Normal color with no rashes, no lesions, and no evidence of cellulitis. MS/ Extremity: Pulses equal, no cyanosis. Neurovascular intact. Full, normal range of motion. Neuro: Awake and alert, GCS 15, oriented to person, place, time, and situation. Cranial nerves II-XII grossly intact. Motor strength 5/5 in all extremities. Sensory grossly intact. Cerebellar exam normal. Normal gait. 02:40 Constitutional: The patient appears alert, awake. 02:40 Abdomen/GI: Palpation: mild abdominal tenderness, in all quadrants. 02:40 Back: CVA tenderness, that is moderate, is noted on the right. Vital Signs: 08/04 22:31 BP 152 / 92; Pulse 87; Resp 18; Temp 97.4; Pulse Ox 100% on R/A; Weight 99.79 kg (R); aj1 Height 5 ft. 2 in. (157.48 cm) (R); Pain 5/10; 23:34 BP 127 / 66; Pulse 78; Resp 16; Pulse Ox 100% on R/A; lp1 08/05 02:30 BP 120 / 59; Pulse 76; Resp 16; Pulse Ox 100% on R/A; lp1 08/04 22:31 Body Mass Index 40.24 (99.79 kg, 157.48 cm) aj1 MDM: 00:01 Patient medically screened. 02:40 Differential diagnosis: gastritis, pancreatitis, diverticulitis, gastroenteritis. Data gs reviewed: vital signs, nurses notes. Counseling: I had a detailed discussion with the patient and/or guardian regarding: the historical points, exam findings, and any diagnostic results supporting the discharge/admit diagnosis, lab results, radiology results, the need for outpatient follow up. Response to treatment: the patient's symptoms have markedly improved after treatment, and as a result, I will discharge patient. 08/04 22:58 Order name: Urine Culture [facility] 08/04 22:58 Order name: Urine Microscopic Only [facility] 08/04 23:29 Order name: Urine Dipstick--Ancillary (enter results) [facility] 08/04 23:51 Order name: Urine Dipstick-Ancillary; Complete Time: 01:48 EDMS 08/05 00:02 Order name: Basic Metabolic Panel 08/05 00:02 Order name: CBC with Diff 08/05 00:02 Order name: CT Stone Protocol 08/05 00:02 Order name: Hepatic Function 08/05 00:02 Order name: Lipase 08/05 00:41 Order name: Urine Microscopic Only; Complete Time: 01:48 EDMS 08/05 01:05 Order name: CBC with Automated Diff; Complete Time: 01:48 EDMS 08/05 01:14 Order name: Basic Metabolic Panel; Complete Time: 01:48 EDMS 08/05 01:14 Order name: Liver (Hepatic) Function; Complete Time: 01:48 EDMS 08/05 01:14 Order name: Lipase; Complete Time: 01:48 EDMS 08/04 22:58 Order name: Urine Dipstick-Ancillary (obtain specimen); Complete Time: 23:35 [facility] 08/05 00:02 Order name: IV Saline Lock; Complete Time: 00:52 08/05 00:02 Order name: Labs collected and sent; Complete Time: 00:52 Administered Medications: 00:52 Drug: NS 0.9% 1000 ml Route: IV; Rate: 1 bolus; Site: Port-a-cath; lp1 02:43 Follow up: IV Status: Completed infusion; IV Intake: 1000ml lp1 01:01 Drug: Zofran 4 mg Route: IVP; Site: Port-a-cath; lp1 01:45 Follow up: Response: Nausea is decreased lp1 02:43 Drug: NS 0.9% 1000 ml Route: IV; Rate: 1 bolus; Site: Port-a-cath; lp1 03:31 Follow up: IV Status: IV converted to saline lock lp1 02:43 Drug: Rocephin - (cefTRIAXone) 1 grams Route: IVPB; Infused Over: 30 mins; Site: lp Port-a-cath; 03:15 Follow up: IV Status: Completed infusion; IV Intake: 10ml lp1 03:30 Drug: HEParin Flush 500 units Route: IVP; Site: Port-a-cath; lp1 03:31 Follow up: Response: Medication administered at discharge. lp1 Disposition: 08/05/18 02:42 Discharged to Home. Impression: Diarrhea, unspecified, Acute tubulo-interstitial nephritis. - Condition is Stable. - Discharge Instructions: Diarrhea, Adult, Pyelonephritis, Adult. - Prescriptions for Keflex 500 mg Oral Capsule - take 2 capsule by ORAL route every 12 hours for 7 days; 28 capsule. Lomotil 2.5- 0.025 mg Oral Tablet - take 1 tablet by ORAL route 2 times per day As needed; 12 tablet. - Medication Reconciliation Form, Thank You Letter, Antibiotic Education, Prescription Opioid Use form. - Follow up: Private Physician; When: 2 - 3 days; Reason: Re-evaluation by your physician. Signatures: Dispatcher MedHoUN[facility]oval Regional Medical CenterAntonella Humphries RN RN aj1 Charisse Milton FNP-Viraj PLASTICS NURSE-Carmen Hodgson RN RN lp1 Kervin Franklin MD MD gs Corrections: (The following items were deleted from the chart) 03:32 02:42 08/05/2018 02:42 Discharged to Home. Impression: Diarrhea, unspecified; Acute lp1 tubulo-interstitial nephritis. Condition is Stable. Forms are Medication Reconciliation Form, Thank You Letter, Antibiotic Education, Prescription Opioid Use. Follow up: Private Physician; When: 2 - 3 days; Reason: Re-evaluation by your physician. gs
[2018-08-05] MEDS ORDERED: HEPARIN 500 UNIT/5 ML SYR IV ONE (03:04)
--- NOTE | 2018-08-05 11:39 | RAD REPORT ---
EXAM DESCRIPTION: CT - Stone Protocol - 08/05/2018 4:43 am CLINICAL HISTORY: Flank pain. ABD PAIN COMPARISON: Extremity Venous Uni Ltd dated 01/22/2017CT ABD PELVIS W CONTRAST dated 10/17/2008 TECHNIQUE: Axial images were obtained without oral or IV contrast. Lack of contrast limits solid org an and vascular assessment. The [id number] spans the entirety of the system partially obscuring uppermost abdomen and lung bases. Coronal reformatted images were obtained and reviewed. All CT scans are performed using dose optimization technique as appropriate and may include automated exposure control or mA/KV adjustment according to patient size. FINDINGS: The lower lung zayas are clear. Cholecystectomy clips. Imaged portions of the liver and spleen show no suspicious findings on non-contrast imaging. The panc reas and adrenal glands are normal. No pathologic lymphadenopathy in the abdomen or pelvis. Punctate right nephrolithiasis without hydronephrosis seen. No bowel obstruction, free air, free fluid or abscess. Appendectomy is seen with an appendiceal stump still present.Anterior ventral hernia repair changes are present. No significant bony abnormality. IMPRESSION: Punctate right nephrolithiasis without hydronephrosis.
[2018-08-05 13:44] VITALS: TEMP 97.4; O2SAT 100
[2018-08-05 13:47] VITALS: BP 120/59
== END 2018-08-05 03:32 | disposition home or self-care (01) ==
LOC: ER 22:10
DX: N10 Acute pyelonephritis (principal); I10 Essential (primary) hypertension; C34.90 Malignant neoplasm of unspecified part of unspecified bronchus or lung; I25.2 Old myocardial infarction; Z88.5 Allergy status to narcotic agent; Z88.8 Allergy status to other drugs, medicaments and biological substances
CPT/HCPCS: 36415; 74176; 76377; 80048; 80076; 83690; 85025; 87077; 87086; 87088; 87186; 96361; 96365; 96375; 99284; J0696; J1642; J2405; J7030 ×2; 81003; 81015

== ENCOUNTER 2018-08-24 17:06 | Emergency (ER) | payer OTHER ==
[2018-08-24] MEDS ORDERED: ALBUTEROL 2.5 MG/3 ML NEB SOL ONE (17:51)
[2018-08-24] MEDS ORDERED: IPRATROPIUM BROM 0.5MG/2.5ML ONE (17:51)
[2018-08-24] MEDS ORDERED: NA CHLORIDE 0.9% 1,000 ML ONE (17:51)
[2018-08-24] MEDS ORDERED: METHYLPREDNISOLONE 125 MG INJ ONE (17:51)
[2018-08-24 18:11] LABS: Absolute Lymphocytes (CBC) 1.5 K/uL (0.7-4.9); Absolute Monocytes 0.2 K/uL (0.1-1.3); Absolute Neutrophil 0.7 K/uL (1.8-8.0); Basophils % 0.1 % (0-1.3); Hematocrit 30.5 % (36.0-45.0); Lymphocytes % 62.6 % (15.3-44.8); MPV 8.1 fL (7.6-11.3); Monocytes % 6.4 % (3.3-12.3); RBC Red Blood Cell Count 3.66 M/uL (3.86-4.86)
[2018-08-24 18:12] LABS: Protime INR 1.06
--- NOTE | 2018-08-24 18:17 | RAD REPORT ---
EXAM DESCRIPTION: Ermelinda Single View08/24/2018 6:09 pm CLINICAL HISTORY: cough COMPARISON: December 2017 FINDINGS: The lungs appear clear of acute infiltrate. The heart is normal size. A central venous ca theter is in place IMPRESSION: No acute abnormalities displayed
[2018-08-24 18:25] LABS: ALT/SGPT 47 U/L (12-78); AST/SGOT 43 U/L (15-37); Albumin 3.7 g/dL (3.4-5.0); Alkaline Phosphatase 85 U/L (45-117); BUN Blood Urea Nitrogen 25 mg/dL (7-18); Bicarbonate 28 mmol/L (21-32); Bilirubin Direct 0.1 mg/dL (0-0.2); Bilirubin Total 0.4 mg/dL (0.2-1.0); Glucose Level 93 mg/dL (74-106); Magnesium 2.1 mg/dL (1.8-2.4); NT PRO-BNP 46 pg/mL (<125); Potassium 3.7 mmol/L (3.5-5.1); Protein, Total 8.3 g/dL (6.4-8.2); Sodium Level 138 mmol/L (136-145); Troponin (Emerg Dept Use Only) < 0.02 ng/mL (0.0-0.045)
[2018-08-24] MEDS ORDERED: ONDANSETRON 4 MG/2 ML VIAL ONE (19:24)
--- NOTE | 2018-08-24 19:28 | EDPHYS ---
Physician Documentation [facility] Name: Anisha Lindsay Age: 53 yrs Sex: Female : 1965 Arrival Date: 08/24/2018 Time: 17:09 Bed 19 Private MD: Ninfa Mensah R ED Physician Brigido Yepez HPI: 08/24 17:38 This 53 yrs old Female presents to ER via Ambulatory with complaints of jr8 Fever, Productive Cough. 17:38 Onset: The symptoms/episode began/occurred gradually, 2 week(s) ago, and became worse jr8 and became persistent. Modifying factors: there are no obvious modifying factors. Associated signs and symptoms: Pertinent positives: cough. Severity of symptoms: At their worst the symptoms were moderate in the emergency department the symptoms are unchanged. The patient has not experienced similar symptoms in the past. The patient has been recently seen by a physician:. Patient with stage 4 bilateral lung cancer undergoing chemotherapy. Stated that she had chemo on the 16 of August. Since then has had cough and congestion that is worsening . 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 - Social history:: Smoking status: Patient/guardian denies using tobacco. - Ebola Screening: : Patient denies travel to an Ebola-affected area in the 21 days before illness onset. ROS: 17:38 Eyes: Negative for injury, pain, redness, and discharge, ENT: Negative for injury, jr8 pain, and discharge, Neck: Negative for injury, pain, and swelling, Cardiovascular: Negative for chest pain, palpitations, and edema, Abdomen/GI: Negative for abdominal pain, nausea, vomiting, diarrhea, and constipation, Back: Negative for injury and pain, MS/Extremity: Negative for injury and deformity, Skin: Negative for injury, rash, and discoloration, Neuro: Negative for headache, weakness, numbness, tingling, and seizure. 17:38 Respiratory: Positive for cough, dyspnea on exertion, shortness of breath, wheezing. Exam: 17:38 Eyes: Pupils equal round and reactive to light, extra-ocular motions intact. Lids and jr8 lashes normal. Conjunctiva and sclera are non-icteric and not injected. Cornea within normal limits. Periorbital areas with no swelling, redness, or edema. ENT: Nares patent. No nasal discharge, no septal abnormalities noted. Tympanic membranes are normal and external auditory canals are clear. Oropharynx with no redness, swelling, or masses, exudates, or evidence of obstruction, uvula midline. Mucous membranes moist. Neck: Trachea midline, no thyromegaly or masses palpated, and no cervical lymphadenopathy. Supple, full range of motion without nuchal rigidity, or vertebral point tenderness. No Meningismus. Cardiovascular: Regular rate and rhythm with a normal S1 and S2. No gallops, murmurs, or rubs. Normal PMI, no JVD. No pulse deficits. Abdomen/GI: Soft, non-tender, with normal bowel sounds. No distension or tympany. No guarding or rebound. No evidence of tenderness throughout. Back: No spinal tenderness. No costovertebral tenderness. Full range of motion. Skin: Warm, dry with normal turgor. Normal color with no rashes, no lesions, and no evidence of cellulitis. MS/ Extremity: Pulses equal, no cyanosis. Neurovascular intact. Full, normal range of motion. Neuro: Awake and alert, GCS 15, oriented to person, place, time, and situation. Cranial nerves II-XII grossly intact. Motor strength 5/5 in all extremities. Sensory grossly intact. Cerebellar exam normal. Normal gait. 17:38 Respiratory: the patient does not display signs of respiratory distress, Respirations: normal, symetrical, no use of accessory muscles, no grunting, no evidence of nasal flaring, no prolonged exhalations, no pursed lip breathing, no retractions, no shallow respirations, no splinting, no tachypnea, Breath sounds: rhonchi, that are moderate, are heard diffusely, wheezing: expiratory that is moderate, is heard diffusely. Vital Signs: 17:17 BP 138 / 101; Pulse 123; Resp 20; Temp 97.6(TE); Pulse Ox 96% on R/A; Weight 100.24 kg aj1 (R); Height 5 ft. 2 in. (157.48 cm) (R); Pain 4/10; 18:00 BP 131 / 81; Pulse 109; Resp 24; Pulse Ox 99% on R/A; em 18:42 BP 140 / 82; Pulse 111; Resp 16; Pulse Ox 99% on R/A; em 19:30 BP 152 / 88; Pulse 102; Resp 18; Pulse Ox 100% on R/A; ca1 17:17 Body Mass Index 40.42 (100.24 kg, 157.48 cm) aj1 MDM: 17:21 Patient medically screened. 8 19:25 Data reviewed: vital signs, nurses notes, lab test result(s), EKG, radiologic studies, jr8 plain films. Data interpreted: Pulse oximetry: on room air is 99 %. Interpretation: normal. Counseling: I had a detailed discussion with the patient and/or guardian regarding: the historical points, exam findings, and any diagnostic results supporting the discharge/admit diagnosis, lab results, radiology results, the need for outpatient follow up, a family practitioner, to return to the emergency department if symptoms worsen or persist or if there are any questions or concerns that arise at home. Response to treatment: the patient's symptoms have markedly improved after treatment, patient is well hydrated. ED course: Dr. carlos Carrera patients oncologist. Is ok with her lab values. Good to send home and f/u if we are ok with it. Patient feeling better. No longer tachycardic. Oxygen saturation satisfactory. Will send home on steroids and antibiotics and with f/u in a few days . 08/24 17:21 Order name: Basic Metabolic Panel; Complete Time: 18:37 jr8 08/24 17:21 Order name: CBC with Diff jr8 08/24 17:21 Order name: LFT's; Complete Time: 18:37 8 08/24 17:21 Order name: Magnesium; Complete Time: 18:37 8 08/24 17:21 Order name: NT PRO-BNP; Complete Time: 18:37 8 08/24 17:21 Order name: PT-INR; Complete Time: 18:37 8 08/24 17:21 Order name: Troponin (emerg Dept Use Only); Complete Time: 18:37 8 08/24 17:21 Order name: XRAY Chest (1 view); Complete Time: 18:37 8 08/24 17:21 Order name: Blood Culture Adult (2) 08/24 17:21 Order name: EKG; Complete Time: 17:22 8 08/24 17:21 Order name: Cardiac monitoring; Complete Time: 17:59 8 08/24 17:21 Order name: EKG - Nurse/Tech; Complete Time: 18:12 08/24 17:21 Order name: IV Saline Lock; Complete Time: 17:59 8 08/24 17:21 Order name: Labs collected and sent; Complete Time: 17:59 8 08/24 17:21 Order name: O2 Per Protocol; Complete Time: 17:59 [facility] 08/24 17:21 Order name: O2 Sat Monitoring; Complete Time: 17:59 Administered Medications: 17:49 Drug: SOLU-Medrol 125 mg Route: IVP; Site: right antecubital; hb 18:41 Follow up: Response: No adverse reaction em 18:00 Drug: Albuterol - atroVENT (3:1) (2.5 mg - 0.5 mg) 3 ml Route: Nebulizer; em 18:41 Follow up: Response: No adverse reaction; Marked relief of symptoms em 18:00 Drug: NS 0.9% 1000 ml Route: IV; Rate: 1000 ml; Site: right antecubital; em 19:45 Follow up: Response: No adverse reaction; IV Status: Completed infusion ca1 19:18 Drug: Zofran 4 mg Route: IVP; Site: right antecubital; aa1 19:58 Follow up: Response: No adverse reaction; Nausea is decreased ca1 19:36 Drug: LevaQUIN 500 mg Route: PO; ca1 19:58 Follow up: Response: Medication administered at discharge. ca1 Disposition: 08/24/18 19:27 Discharged to Home. Impression: Acute bronchitis, Neutropenia. - Condition is Stable. - Discharge Instructions: Acute Bronchitis, Adult. - Prescriptions for Levaquin 500 mg Oral Tablet - take 1 tablet by ORAL route once daily for 7 days; 7 tablet. Prednisone 20 mg Oral Tablet - take 2 tablet by ORAL route once daily for 5 days; 10 tablet. Guaifenesin AC 10- 100 mg/5 mL Oral Liquid - take 10 milliliter by ORAL route every 4 hours As needed; 240 milliliter. - Medication Reconciliation Form, Thank You Letter, Antibiotic Education, Prescription Opioid Use form. - Follow up: Private Physician; When: 2 - 3 days; Reason: Recheck today's complaints, Continuance of care, Re-evaluation by your physician. - Problem is new. - Symptoms have improved. Addendum: 09/04/2018 07:35 Co-signature as Attending Physician, Brigido Yepez MD I agree with the assessment and k dr plan of care. Signatures: Dispatcher [employer] EDAntonella Humphries RN RN aj1 Edel Miguel RN RN aa1 Brigido Yepez MD MD [facility] Luis Antonio Zapien, PICK OUT HAND PICK OUT HAND em Roque Dang PA PA jr8 Jessica Elizabeth RN RN AcobPeyton RN RN ca1 Corrections: (The following items were deleted from the chart) 08/24 20:02 19:27 08/24/2018 19:27 Discharged to Home. Impression: Acute bronchitis; Neutropenia. ca1 Condition is Stable. Forms are Medication Reconciliation Form, Thank You Letter, Antibiotic Education, Prescription Opioid Use. Follow up: Private Physician; When: 2 - 3 days; Reason: Recheck today's complaints, Continuance of care, Re-evaluation by your physician. Problem is new. Symptoms have improved. jr8
--- NOTE | 2018-08-24 19:28 | ER ---
Nurse's Notes [facility] Name: Anisha Lindsay Age: 53 yrs Sex: Female : 1965 Arrival Date: 08/24/2018 Time: 17:09 Bed 19 Private MD: Ninfa Mensah R Diagnosis: Acute bronchitis;Neutropenia Presentation: 08/24 17:13 Presenting complaint: Patient states: "I got chemo last week, my blood count was really aj1 low so they gave me blood the next day. Then I started getting a cold, it just gets worse and worse, now its been a week. I called the oncologist and she told me to come to the ER because I've been having a fever, and she said my white count was too low to begin with" Patient reports fever of 100.5, productive cough, shortness of breath. Transition of care: patient was not received from another setting of care. Onset of symptoms was August 2018. Risk Assessment: Do you want to hurt yourself or someone else? Patient reports no desire to harm self or others. Initial Sepsis Screen: Does the patient meet any 2 criteria? HR > 90 bpm. No. Patient's initial sepsis screen is negative. Does the patient have a suspected source of infection? Yes:. Care prior to arrival: None. 17:13 Method Of Arrival: Ambulatory aj 17:13 Acuity: CHEN 2 aj1 Triage Assessment: 17:17 General: Appears in no apparent distress. uncomfortable, Behavior is calm, cooperative, aj1 appropriate for age. Pain: Complains of pain in mid-sternal area Pain does not radiate. Pain currently is 4 out of 10 on a pain scale. Quality of pain is described as. Neuro: Level of Consciousness is awake, alert, obeys commands. Cardiovascular: Patient's skin is warm and dry. Cardiovascular: Reports chest pain. Respiratory: Reports shortness of breath cough that is productive, Airway is patent Respiratory effort is even, unlabored, Respiratory pattern is regular, symmetrical, Onset: The symptoms/episode began/occurred one week ago, the patient has mild shortness of breath. 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 - Social history:: Smoking status: Patient/guardian denies using tobacco. - Ebola Screening: : Patient denies travel to an Ebola-affected area in the 21 days before illness onset. Screenin:53 Abuse screen: Denies threats or abuse. Nutritional screening: No deficits noted. em Tuberculosis screening: No symptoms or risk factors identified. Fall Risk None identified. Assessment: 18:00 General: Appears in no apparent distress. uncomfortable, Behavior is calm, cooperative, em Reports chills for fever for. Pain: Complains of pain in mid-sternal area. Neuro: Level of Consciousness is awake, alert, obeys commands, Oriented to person, place, time, situation. Cardiovascular: Patient's skin is warm and dry. Rhythm is sinus tachycardia. Respiratory: Airway is patent Respiratory effort is even, unlabored, Respiratory pattern is regular, symmetrical, Breath sounds with rhonchi bilaterally. GI: Abdomen is flat. EENT: Reports nasal congestion. Derm: Skin is intact, is healthy with good turgor, Skin is pink, warm \\T\\ dry. Musculoskeletal: Range of motion: intact in all extremities. 18:15 Reassessment: I agree with previous assessment. hb 18:45 Reassessment: Patient appears in no apparent distress at this time. Patient and/or em family updated on plan of care and expected duration. Pain level reassessed. Patient is alert, oriented x 3, equal unlabored respirations, skin warm/dry/pink. provider at bedside. 19:05 Reassessment: Patient appears in no apparent distress at this time. Patient and/or ca1 family updated on plan of care and expected duration. Pain level reassessed. Patient is alert, oriented x 3, equal unlabored respirations, skin warm/dry/pink. productive cough noted. Vital Signs: 17:17 BP 138 / 101; Pulse 123; Resp 20; Temp 97.6(TE); Pulse Ox 96% on R/A; Weight 100.24 kg aj1 (R); Height 5 ft. 2 in. (157.48 cm) (R); Pain 4/10; 18:00 BP 131 / 81; Pulse 109; Resp 24; Pulse Ox 99% on R/A; em 18:42 BP 140 / 82; Pulse 111; Resp 16; Pulse Ox 99% on R/A; em 19:30 BP 152 / 88; Pulse 102; Resp 18; Pulse Ox 100% on R/A; ca1 17:17 Body Mass Index 40.42 (100.24 kg, 157.48 cm) aj1 ED Course: 17:09 Patient arrived in ED. sb2 17:09 Ninfa Mensah MD is Private Physician. sb2 17:16 Triage completed. aj1 17:17 Arm band placed on Patient placed in an exam room. aj1 17:21 Roque Dang PA is PHCP. jr8 17:21 Brigido Yepez MD is Attending Physician. jr8 17:25 Luis Antonio Zapien LVN is Primary Nurse. em 17:50 Initial lab(s) drawn, by me, sent to lab. First set of blood cultures drawn by me. 3 Inserted saline lock: 20 gauge in right antecubital area, using aseptic technique. Blood collected. 18:00 Patient has correct armband on for positive identification. Bed in low position. Call em light in reach. patient monitor on. Pulse ox on. NIBP on. 18:05 Second set of blood cultures drawn by me. 3 18:09 XRAY Chest (1 view) In Process Unspecified. EDMS 18:09 EKG done, by ED staff, reviewed by Roque SPRAGUE. 3 20:00 No provider procedures requiring assistance completed. IV discontinued, intact, ca1 bleeding controlled, No redness/swelling at site. Pressure dressing applied. Administered Medications: 17:49 Drug: SOLU-Medrol 125 mg Route: IVP; Site: right antecubital; hb 18:41 Follow up: Response: No adverse reaction em 18:00 Drug: Albuterol - atroVENT (3:1) (2.5 mg - 0.5 mg) 3 ml Route: Nebulizer; em 18:41 Follow up: Response: No adverse reaction; Marked relief of symptoms em 18:00 Drug: NS 0.9% 1000 ml Route: IV; Rate: 1000 ml; Site: right antecubital; em 19:45 Follow up: Response: No adverse reaction; IV Status: Completed infusion ca1 19:18 Drug: Zofran 4 mg Route: IVP; Site: right antecubital; aa1 19:58 Follow up: Response: No adverse reaction; Nausea is decreased ca1 19:36 Drug: LevaQUIN 500 mg Route: PO; ca1 19:58 Follow up: Response: Medication administered at discharge. ca1 Outcome: 19:27 Discharge ordered by . rashida 20:00 Discharged to home ambulatory. ca1 20:00 Condition: stable 20:00 Discharge instructions given to patient, Instructed on discharge instructions, follow up and referral plans. medication usage, Demonstrated understanding of instructions, follow-up care, medications, Prescriptions given X 3. 20:02 Patient left the ED. ca1 Signatures: Dispatcher [employer] EDAntonella Humphries RN RN aj1 Edel Miguel RN RN aa1 Luis Antonio Zapien, STEEPING PRESS TENDER STEEPING PRESS TENDER em Roque Dang PA PA jr8 Jessica Elizabeth RN RN Liza Erickson 3 Eva Hager 2 Peyton Fox RN RN ca1 Corrections: (The following items were deleted from the chart) 19:16 18:00 Respiratory: Airway is patent Respiratory effort is even, unlabored, Respiratory em pattern is regular, symmetrical, Pleural rub noted bilaterally. em
[2018-08-24] MEDS ORDERED: levoFLOXacin 500 MG TAB ONE (19:43)
[2018-08-24 20:16] LABS: Anisocytosis 1+; Blood Morphology Comment NOTED (NOT SEEN); Ovalocytes SLIGHT; Platelet Estimate DECR; Poikilocytosis 1+; Teardrop Cell FEW
[2018-08-24 21:09] VITALS: TEMP 97.6
[2018-08-24 21:10] VITALS: O2SAT 99
[2018-08-24 21:11] VITALS: BP 140/82
--- OUTSIDE RECORDS SUMMARY | 2018-08-25 17:38 | XMS REPORT | Clinical Summary ---
:1965 Author Organization [facility] Address [address] [place] [address] Care Team Providers Name Role Phone Juan [...] Date Arthritis 06/14/2018 Coronary artery disease involving [place] coronary artery of [place] heart 06/14 without angina pectoris Bilateral lung cancer 04/21/2018 Distal radius fracture, left 07/20/2016 Displaced fracture of distal end of left radius 07/15/2016 Encounters Date Type Specialty Care Team Description 08/23/2018 Telephone Oncology Jakob Carrera MD 08/17/2018 Infusion Oncology Jakob Carrera MD Bilateral lung cancer (HCC) (Primary Dx) 08/16/2018 Office Visit Oncology Jakob Carrera MD Bilateral lung cancer (HCC) 08/16/2018 Infusion Oncology Jakob Carrera MD Bilateral lung Gardianos, cancer (HCC) ALEX Parr (Primary Dx) 08/16/2018 Orders Only Oncology Jakob Carrera MD Bilateral lung cancer (HCC) 07/26/2018 Infusion Oncology Jakob Carrera MD Bilateral lung Sarah Allen RN cancer (HCC) (Primary Dx) 07/26/2018 Hospital Encounter Radiology Jakob Carrera MD Bilateral lung Sanam, cancer (HCC) Wang Asif MD 07/26/2018 Orders Only Oncology Sanam Bilateral lung moraima Jerome (HCC) 07/25/2018 Orders Only Oncology Earnest Villagran RN 07/13/2018 Orders Only Oncology Kanchan Hartman MA 07/05/2018 Office Visit Oncology Jakob Carrera MD Bilateral lung cancer (HCC ) (Primary Dx); Coronary artery disease involving [place] coronary artery of [place] heart without angina pectoris; Arthritis 07/05/2018 Infusion Oncology Jakob Carrera MD Bilateral lung cancer (HCC) (Primary Dx) 07/05/2018 Orders Only Cardiology Araceli Pacheco, Bilateral lung [place] cancer (HCC) (Primary Dx) 07/04/2018 Orders Only Oncology Jakob Carrera MD 06/26/2018 Hospital Encounter Radiology Jkaob Carrera MD Bilateral lung cancer (HCC) 06/23/2018 [...] (HCC) (Primary Dx) 06/14/2018 Oncology Oncology Mallorie Branch RN 06/13/2018 Orders Only Oncology Jakob Carrera MD [...] Jennifer Trinh RN 05/24/2018 Office Visit Cardiothoracic Janice, Surgery follow-up examination (Primary Dx); Surgery Candy Gaytan NP Bilateral lung cancer Stephan Weir MD 05/23/2018 Lab Lab Jakob Carrera MD Bilateral lung cancer 05/23/2018 Office Visit Oncology Jakob Carrera MD Bilateral lung cancer (Primary Dx) 05/19/2018 Telephone Cardiothoracic Deloris Castellanos MA 04/21/2018 Surgery Cardiothoracic Stephan Weir FLEXIBLE BRONSCOPY Surgery MD Jose 04/21/2018 Anesthesia Event Cardiothoracic Deloris Benz CRNA 04/21/2018 - Hospital Encounter Cardiology Stephan Weir Bilateral lung 04/27/2018 MD Jose cancer 04/20/2018 Orders Only Cardiothoracic Provider, Surgery MD Dustin 04/13/2018 Surgery Cardiothoracic Stephan Weir FLEXIBLE Surgery MD Jose BRONCHOSCOPY 04/13/2018 Anesthesia Event Cardiothoracic Kasi Vega, Deloris ORDONEZ 04/13/2018 Hospital Encounter Cardiothoracic Stephan Weir Surgery MD Jose 04/12/2018 Telephone [facility] [place] 04/11/2018 Lab Lab Stephan Weir Bilateral lung cancer; MD Jose Pre-op testing 04/11/2018 Office Visit Cardiothoracic Stephan Weir Bilateral lung cancer ( Primary Dx); Surgery MD Jose Pre-op testing 04/11/2018 Orders Only Cardiothoracic Provider, Surgery MD Dustin 04/06/2018 Hospital Encounter Radiology Jose Cadet Mass of left lung MD Robert 04/06/2018 Hospital Encounter Radiology Mac, Mass of left lung Osman Macdonald MD 03/28/2018 Hospital Encounter Radiology Mac, Malignant neoplasm Osman Macdonald MD of lung, unspecified laterality, unspecified part of lung 03/27/2018 Orders Only Cardiothoracic Provider, Surgery MD Dustin 03/24/2018 Telephone [facility] [place] 03/24/2018 Transcribe Orders Radiology Mac, Mass of left lung Osman Macdonald MD (Primary Dx) 03/22/2018 Transcribe Orders Access Mac Malignant neoplasm Osman Macdonald MD of lung, unspecified laterality, unspecified part of lung (Primary Dx) 03/06/2018 Hospital Encounter Radiology Aashish Gibbons MD 03/06/2018 Hospital Encounter Radiology Aashish Gibbons Lung michael Vance MD 03/06/2018 Hospital Encounter Radiology Mac, Lung mass Osman Macdonald MD 03/06/2018 Hospital Encounter Radiology Aashish Gibbons MD 03/02/2018 Telephone Radiology Anat Mcdermott RN 02/23/2018 Transcribe Orders Radiology Mac, Lung mass (Primary Osman Macdonald MD Dx) 02/22/2018 Hospital Encounter Radiology Osman Watts MD 02/22/2018 Hospital Encounter Radiology Osman Watts MD after 08/23/2017 Family History Medical History Relation Name Comments [...] Vital Sign Reading Time Taken Blood Pressure 160/72 08/17/2018 3:00 PM PHOTOCOMPOSITION KEYBOARD OPERATOR Pulse 84 08/17/2018 3:00 PM PHOTOCOMPOSITION KEYBOARD OPERATOR Temperature 36 C (96.8 F) 08/17/2018 3:00 PM PHOTOCOMPOSITION KEYBOARD OPERATOR Respiratory Rate 18 08/17/2018 3:00 PM PHOTOCOMPOSITION KEYBOARD OPERATOR Oxygen Saturation 98% 08/17/2018 3:00 PM PHOTOCOMPOSITION KEYBOARD OPERATOR Inhaled Oxygen Concentration - - Weight 101 kg (223 lb 6.4 oz) 08/17/2018 10:00 AM PHOTOCOMPOSITION KEYBOARD OPERATOR Height 157.5 cm (5' 2") 08/17/2018 10:00 AM PHOTOCOMPOSITION KEYBOARD OPERATOR Body Mass Index 40.86 08/17/2018 10:00 AM PHOTOCOMPOSITION KEYBOARD OPERATOR Plan of Treatment Date Type Specialty Care Team Description 09/08/2018 Infusion Oncology Jakob Carrera MD [address] [address] [phone] 09/27/2018 Infusion Oncology Jakob Carrera MD [address] [address] [phone] 10/18/2018 Infusion Oncology Jakob Carrera MD [address] [place] [address] [phone] 11/08/2018 Infusion Oncology Jakob Carrera MD [address] [address] [phone] Health Maintenance Due Date Last Done Comments CERVICAL CANCER SCREENING 1984 BREAST CANCER SCREENING 2013 COLON CANCER SCREENING 2013 SHINGLES VACCINES (1 of 2) 2013 INFLUENZA VACCINE 04/05/2018 Implants Implanted Type Area Scrap Crusher Device Shelf Model / Identifier Expiration Serial / Date Lot Port Injctbl Smart Port Ct W/ Dtchd Plyurthn Cath 8fr - [id number] Implantable N/A: [employer] 01/02/2021 [id number] / Implanted: 06/12/2018 (Quantity not on file) Infusion Ports N/A / or Accessories [id number] Pump Infsn Synchromed Ii W/ Fltr Sut Loop Prgrmbl Rsvr 20ml - [id number] Neurosurgical N/A: [employer] 10/19/2019 [id number] / Implanted: Qty: 1 on 06/09/2018 by Travon Grace MD Implants N/A NEUROMODULATION / [id number] Passer Intrathcl Cath Rp Tip Obtrtr 38cm - [id number] Surgical N/A: [employer] [facility] 08/25/2019 [id number] / Implanted: Qty: 1 on 06/09/2018 by Travon Grace MD Implantable N/A NEUROLOGICAL / Shunts or Shunt [id number] Extenders Kit Selnt Fibrin Humn Hmsts Surgy 5ml Evicel - [id number] Surgical N/A: ETH[employer]ON - 07/05/2019 [id number] / Implanted: Qty: 1 on 04/21/2018 by Stephan Weir MD Implants; N/A / Expanders; [id number] Extenders; Surgical Wires Closure Wnd Tiss Rpr Sys - [id number] Surgical N/A: ANULEX 03/17/2022 XC 201 01 / Implanted: Qty: 1 on 06/09/2018 by Travon Grace MD Implants; N/A [employer] / Expanders; [id number] Extenders; Surgical Wires Procedures Procedure Name Priority Date/Time Associated Comments Diagnosis TRANSFUSE RED BLOOD Routine 08/17/2018 3:14 Bilateral lung CELLS PM PHOTOCOMPOSITION KEYBOARD OPERATOR cancer (HCC) TRANSFUSE RED BLOOD Routine 08/17/2018 12:45 Bilateral lung CELLS PM PHOTOCOMPOSITION KEYBOARD OPERATOR cancer (HCC) PREPARE RBC Routine 08/16/2018 11:27 Results for this AM PHOTOCOMPOSITION KEYBOARD OPERATOR procedure are in the results section. TYPE AND SCREEN Routine 08/16/2018 11:27 Bilateral lung Results for this AM PHOTOCOMPOSITION KEYBOARD OPERATOR cancer (HCC) procedure are in the results section. MANUAL DIFFERENTIAL STAT 08/16/2018 11:15 Results for this AM PHOTOCOMPOSITION KEYBOARD OPERATOR procedure are in the results section. ESTIMATED GFR STAT 08/16/2018 11:15 Results for this AM PHOTOCOMPOSITION KEYBOARD OPERATOR procedure are in the results section. MAGNESIUM LEVEL STAT 08/16/2018 11:15 Bilateral lung Results for this AM PHOTOCOMPOSITION KEYBOARD OPERATOR cancer (HCC) procedure are in the results section. COMPREHENSIVE STAT 08/16/2018 11:15 Bilateral lung Results for this METABOLIC PANEL AM PHOTOCOMPOSITION KEYBOARD OPERATOR cancer (HCC) procedure are in the results section. CBC WITH PLATELET AND STAT 08/16/2018 11:15 Bilateral lung Results for this DIFFERENTIAL AM PHOTOCOMPOSITION KEYBOARD OPERATOR cancer (HCC) procedure are in the results section. ESTIMATED GFR STAT 07/26/2018 10:22 Results for this AM PHOTOCOMPOSITION KEYBOARD OPERATOR procedure are in the results section. MAGNESIUM LEVEL STAT 07/26/2018 10:22 Bilateral lung Results for this AM PHOTOCOMPOSITION KEYBOARD OPERATOR cancer (HCC) procedure are in the results section. COMPREHENSIVE STAT 07/26/2018 10:22 Bilateral lung Results for this METABOLIC PANEL AM PHOTOCOMPOSITION KEYBOARD OPERATOR cancer (HCC) procedure are in the results section. HC COMPLETE BLD COUNT STAT 07/26/2018 10:22 Bilateral lung Results for this W/AUTO DIFF AM PHOTOCOMPOSITION KEYBOARD OPERATOR cancer (HCC) procedure are in the results section. CT CHEST W CONTRAST Routine 07/26/2018 10:04 Bilateral lung Results for this ABDOMEN W CONTRAST AM PHOTOCOMPOSITION KEYBOARD OPERATOR cancer (HCC) procedure are in PELVIS W CONTRAST the results section. POC CREATININE Routine 07/26/2018 9:14 Results for this AM PHOTOCOMPOSITION KEYBOARD OPERATOR procedure are in the results section. ESTIMATED GFR Routine 07/26/2018 9:14 Results for this AM PHOTOCOMPOSITION KEYBOARD OPERATOR procedure are in the results section. ESTIMATED [...] CDT procedure are in the results section. AK AN ELECTIVE Routine 06/09/2018 8:29 ENDOTRACHEAL AIRWAY AM CDT Procedure Note - Ta Scott CRNA - 06/09/2018 8:29 AM CDT Airway Date/Time: 06/09/2018 7:46 AM Performed by: TA SCOTT Authorized by: RASHEL RAY Location: OR Urgency: Elective Difficult Airway: No Resident/RUBBER STAMP ASSEMBLER/AA: TA SCOTT Performed by: resident/RUBBER STAMP ASSEMBLER/AA Preoxygenated with 100% O2: Yes C-spine Precautions [...] 9:17 AM CDT Procedure Note - Susan Caceres, KATHIE - 04/21/2018 9:17 AM CDT Arterial line [...] BLOOD GAS STAT 04/21/2018 8:59 AM CDT AK AN ELECTIVE ENDOTRACHEAL Routine 04/21/2018 8:39 AM CDT AIRWAY Procedure Note - Amairani Will - 04/21/2018 8:39 AM CDT Airway Date/Time: 04/21/2018 7:45 AM Performed by: MILADY SOLIS Authorized by: MILADY SOLIS Location: OR Urgency: Elective Difficult Airway: No Anesthesiologist: MILADY SOLIS Resident/RUBBER STAMP ASSEMBLER/AA: SUSAN CACERES Other Anesthesia Staff: AMAIRANI WILL [...] MRI BRAIN W WO CONTRAST Routine 04/18/2018 AK AN ELECTIVE ENDOTRACHEAL Routine 04/13/2018 7:26 AM CDT AIRWAY Procedure Note - Raiza Casiano MD - 04/13/2018 7:26 AM CDT Airway Date/Time: 04/13/2018 7:26 AM Performed by: RAIZA CASIANO Authorized by: RAIZA CASIANO Location: OR Urgency: Elective Difficult Airway: No Anesthesiologist: RAIZA CASIANO Resident/RUBBER STAMP ASSEMBLER/AA: KASI VEGA Performed by: resident/RUBBER STAMP ASSEMBLER/AA Preoxygenated with 100% O2: Yes C-spine Precautions [...] CT CHEST WO CONTRAST Routine 12/28/2017 after 08/23/2017 Results Transfuse RBC (08/17/2018 3:14 PM PHOTOCOMPOSITION KEYBOARD OPERATOR)Only the most recent of3 resultswithin the time period is included.Prepare RBC (08/16/2018 11:27 AM PHOTOCOMPOSITION KEYBOARD OPERATOR)Only the most recent of2 resultswithin the time period is included. Product name Apheresis -1 LR #1 [facility] Unit number [id number] [facility] Product code [id number] [facility] Dispense status Transfused [facility] Blood expiration date [facility] Blood type code 5100 [facility] Blood type O POSITIVE [facility] Product name Red Blood Cells -1, [facility] Unit number [id number] [facility] Product code [id number] [facility] Dispense status Transfused [facility] Blood expiration date [facility] Blood type code 5100 [facility] Blood type O POSITIVE [facility] Performing Organization Address City/State/Zipcode Phone Number [facility] DEPARTMENT OF PATHOLOGY AND [address] [place] [phone] [place] [phone] Type and screen (08/16/2018 11:27 AM PHOTOCOMPOSITION KEYBOARD OPERATOR)Only the most recent of3 resultswithin the time period is included. ABO grouping O [facility] Rh type POS [facility] Antibody screen (gel) NEG [facility] Specimen Blood Performing Organization Address City/[facility] Cent[facility] Phone Number [facility] DEPARTMENT OF PATHOLOGY AND [address] [place] [phone] [place] [phone] Estimated GFR (08/16/2018 11:15 AM PHOTOCOMPOSITION KEYBOARD OPERATOR)Only the most recent of6 resultswithin the time period is included. Estimated GFR 51 (A) mL/min/1.73 m2 [facility] Comment: OUTPATIENT CENTER CatergoryUnitsInterpretation G1 >=90 Normal or high G2 60-89Mildly decreased N1z33-89Hoqwdb to moderately decreased F7q85-68Mdwnbluvkh to severely decreased G4 15-29Severely decreased G5 <15Kidney failure The eGFR was calculated using the Chronic Kidney Disease Epidemiology Collaboration (CKD-EPI) equation. Interpretation is based on recommendations of the National Kidney Foundation-Kidney Disease Outcomes Quality Initiative (NKF-KDOQI) published in 2014. Specimen Plasma specimen Performing Organization Address City/[facility]/Zipcode Phone Number [facility] DEPARTMENT OF PATHOLOGY AND [address] [place] [phone] [place] [address] [place] [phone] Manual differential (08/16/2018 11:15 AM PHOTOCOMPOSITION KEYBOARD OPERATOR) Manual differential PERFORMED [facility] Neutrophils 31.0 (L) 39.0 - 69.0 % [facility] Lymphocytes 52.0 (H) 25.0 - 45.0 % [facility] Monocytes 15.0 (H) 0.0 - 10.0 % [facility] Eosinophils 2.0 0.0 - 5.0 % [facility] Basophils 0.0 0.0 - 1.0 % [facility] Metamyelocytes 0 % [facility] Promyelocytes 0 % [facility] Platelet slide review Karlee adequate [facility] Anisocytosis Moderate [facility] Polychromasia Moderate [facility] Tear drop cells Occasional [facility] Spherocytes Occasional [facility] Ovalocytes Moderate [facility] Performing Organization Address City/[facility]/Zipcode Phone Number [facility] DEPARTMENT OF PATHOLOGY AND [address] [place] [phone] [place] [phone] CBC with platelet and differential (08/16/2018 11:15 AM PHOTOCOMPOSITION KEYBOARD OPERATOR)Only the most recent of11 resultswithin the time period is included. WBC 3.62 (L) 4.50 - 11.00 k/uL [facility] RBC 2.79 (L) 4.20 - 5.50 m/uL [facility] HGB 7.7 (L) 12.0 - 16.0 g/dL [facility] HCT 24.3 (L) 37.0 - 47.0 % [facility] MCV 87.1 82.0 - 100.0 fL [facility] MCH 27.6 27.0 - 34.0 pg [facility] MCHC 31.7 31.0 - 37.0 g/dL [facility] RDW - SD 52.7 37.0 - 55.0 fL [facility] MPV 10.2 8.8 - 13.2 fL [facility] Platelet count 169 150 - 400 k/uL [facility] Neutrophils 31.0 (L) 39.0 - 69.0 % [facility] Lymphocytes 52.0 (H) 25.0 - 45.0 % [facility] Monocytes 15.0 (H) 0.0 - 10.0 % [facility] Eosinophils 2.0 0.0 - 5.0 % [facility] Basophils 0.0 0.0 - 1.0 % [facility] Specimen Blood Performing Organization Address City/[facility]/Zipcode Phone Number [facility] DEPARTMENT OF PATHOLOGY AND [address] [place] [phone] [place] [phone] Magnesium level (08/16/2018 11:15 AM PHOTOCOMPOSITION KEYBOARD OPERATOR)Only the most recent of9 resultswithin the time period is included. Magnesium 1.8 1.6 - 2.6 mg/dL [facility] Specimen Plasma specimen Performing Organization Address City/[facility]/Zipcode Phone Number [facility] DEPARTMENT OF PATHOLOGY AND [address] [place] [address] [facility] [address] [place] [address] Comprehensive metabolic panel (08/16/2018 11:15 AM PHOTOCOMPOSITION KEYBOARD OPERATOR)Only the most recent of5 resultswithin the time period is included. Sodium 138 135 - 148 mEq/L [facility] Potassium 4.2 3.5 - 5.0 mEq/L [facility] Chloride 102 98 - 112 mEq/L [facility] CO2 28 24 - 31 mEq/L [facility] Anion gap 8@ANIO 7 - 15 mEq/L [facility] BUN 16 6 - 20 mg/dL [facility] Creatinine 1.20 (H) 0.50 - 0.90 mg/dL [facility] Glucose 102 (H) 65 - 99 mg/dL [facility] Calcium 9.2 8.3 - 10.2 mg/dL [facility] Protein 6.9 6.3 - 8.3 g/dL [facility] Comment: OUTPATIENT CENTER [place] 4.6-7.0 g/dL 1 week 4.4-7.6 g/dL 7 months-1year5.1-7.3 g/dL 1-2 years5.6-7.5 g/dL >3 years6.0-8.0 g/dL 18-150 6.3-8.3 g/dL Albumin 3.9 3.5 - 5.0 g/dL [facility] A/G ratio 1.3 0.7 - 3.8 [facility] Alkaline phosphatase 70 35 - 104 U/L [facility] AST 32 10 - 35 U/L [facility] ALT 23 5 - 50 U/L [facility] Total bilirubin 0.2 0.0 - 1.2 mg/dL [facility] Specimen Plasma specimen Performing Organization Address City/[facility]/Zipcode Phone Number [facility] DEPARTMENT OF PATHOLOGY AND [address] [place] [address] [facility] [address] [place] [address] Chest W Contrast Abdomen W Contrast Pelvis W Contrast (07/26/2018 10:04 AM PHOTOCOMPOSITION KEYBOARD OPERATOR)Only the most recent of2 resultswithin the time [...] and correlation with any recent intervention advised. [facility]-[id number] Procedure Note [facility], Radiology Results Incoming - 07/26/2018 10:39 AM PHOTOCOMPOSITION KEYBOARD OPERATOR EXAMINATION: CT CHEST W CONTRAST ABDOMEN W [...] and correlation with any recent intervention advised. [facility]-[id number] Performing Organization Address City/State/Zipcode Phone Number [facility] [address] [place] [address] POC creatinine (07/26/2018 9:14 AM PHOTOCOMPOSITION KEYBOARD OPERATOR) POC creatinine 1.0 (H) 0.5 - 0.9 mg/dl [facility] Comment: Meter ID: [id number] [employer] Supervisor: Ledy Evans Specimen Blood Performing Organization Address City/State/Zipcode Phone Number [facility] DEPARTMENT OF PATHOLOGY AND [address] [place] [address] GENOMIC MEDICINE [facility] [address] [place] [address] IR Port Placement (06/12/2018 12:54 PM CDT) [...] and the performing provider. Duration of intraservice [id number] anesthesia/sedation: N/A Access: Local anesthesia was administered. The right internal jugular vein was evaluated with preprocedure ultrasound and noted to be patent. Real-time ultrasound was used to visualize needle entry into the vessel and a permanent image was stored. A 0.035 inch J-wire was advanced into the inferior vena cava and an image was archived. Access technique: 5 Burkinan micropuncture set Venography: Vein catheterized: N/A Indication [...] position of the catheter tip. Port placed: [employer] Smart Port Catheter size: 8 Burkinan Catheter flush: Heparin (100 units/mL) Closure: The [...] Estimated blood loss: Less than 10 cc [facility]-[id number] Procedure Note [facility], Radiology Results Incoming - 06/12/2018 5:31 [...] and the performing provider. Duration of intraservice [id number] anesthesia/sedation: N/A Access: Local anesthesia was administered. The right internal jugular vein was evaluated with preprocedure ultrasound and noted to be patent. Real-time ultrasound was used to visualize needle entry into the vessel and a permanent image was stored. A 0.035 inch J-wire was advanced into the inferior vena cava and an image was archived. Access technique: 5 Burkinan micropuncture set Venography: Vein catheterized: N/A Indication [...] position of the catheter tip. Port placed: [employer] Smart Port Catheter size: 8 Burkinan Catheter flush: Heparin (100 units/mL) Closure: The [...] Estimated blood loss: Less than 10 cc [facility]-[id number] Performing Organization Address [facility] Phone Number [facility] [address] [place] [address] POC glucose (06/12/2018 11:10 AM CDT)Only the most recent of21 resultswithin the time period is included. POC glucose 128 (H) 65 - 99 mg/dL [facility] DEPARTMENT OF PATHOLOGY AND Comment: GENOMIC MEDICINE No Action Needed [facility] Notified RN Meter ID: [id number] [employer] Supervisor: Per Barnes Performing Organization Address [facility]/Zipcode Phone Number [facility] DEPARTMENT OF PATHOLOGY AND [address] [place] [address] GENOMIC MEDICINE [place] < 1 Hour [...] TECH: Fareed Ng [id number] Performing Organization Address [facility] Cent[facility] Phone Number [facility] [address] [place] [phone] Basic metabolic panel (06/09/2018 6:30 AM CDT)Only the most recent of7 resultswithin the time period is included. Sodium 138 135 - 148 mEq/L [facility] DEPARTMENT OF PATHOLOGY AND GENOMIC MEDICINE Potassium 4.1 3.5 - 5.0 mEq/L [facility] DEPARTMENT OF PATHOLOGY AND GENOMIC MEDICINE Chloride 99 98 - 112 mEq/L [facility] DEPARTMENT OF PATHOLOGY AND GENOMIC MEDICINE CO2 25 24 - 31 mEq/L [facility] DEPARTMENT OF PATHOLOGY AND GENOMIC MEDICINE Anion gap 14@ANIO 7 - 15 mEq/L [facility] DEPARTMENT OF PATHOLOGY AND GENOMIC MEDICINE BUN 29 (H) 6 - 20 mg/dL [facility] DEPARTMENT OF PATHOLOGY AND GENOMIC MEDICINE Creatinine 0.97 (H) 0.50 - 0.90 mg/dL [facility] DEPARTMENT OF PATHOLOGY AND GENOMIC MEDICINE Glucose 125 (H) 65 - 99 mg/dL [facility] DEPARTMENT OF PATHOLOGY AND GENOMIC MEDICINE Calcium 9.8 8.3 - 10.2 mg/dL [facility] DEPARTMENT OF PATHOLOGY AND GENOMIC MEDICINE Specimen Plasma specimen Performing Organization Address City/[facility] Centercode Phone Number [facility] DEPARTMENT OF PATHOLOGY AND [address] [place] [phone] [employer] Prothrombin time with INR (05/23/2018 2:21 PM CDT)Only the most recent of2 resultswithin the time period is included. Prothrombin time 12.8 12.0 - 15.0 sec [facility] DEPARTMENT OF PATHOLOGY AND GENOMIC MEDICINE INR 1.0 [facility] DEPARTMENT OF Comment: PATHOLOGY AND GENOMIC The International Normalized Ratio (INR) is a therapeutic MEDICINE monitoring tool for patients who are stable on oral anticoagulant therapy. An INR of 2.0-3.0 is suggested for deep vein thrombosis/pulmonary embolism. Specimen Blood Performing Organization Address City/[facility]/Zipcode Phone Number [facility] DEPARTMENT OF PATHOLOGY AND [address] [place] [address] [facility] XR Chest 1 Vw Portable (04/27/2018 8:32 AM CDT)Only the most recent of6 resultswithin the time period is included. Narrative Performed At EXAMINATION:XR CHEST [address] [facility] CLINICAL HISTORY:volume overload COMPARISON:April 25, [...] basilar atelectasis. 3. No pneumothorax is identified [id number] Procedure Note Interface, Radiology Results Incoming - [...] basilar atelectasis. 3. No pneumothorax is identified [id number] Performing Organization Address City/[facility] Cent[facility] Phone Number [facility] [address] [place] [address] Estimated GFR (04/27/2018 4:00 AM CDT)Only the most recent of7 resultswithin the time period is included. GFR Non Af Amer 65 mL/min/1.73 m2 [facility] DEPARTMENT OF PATHOLOGY AND GENOMIC MEDICINE GFR Af Amer 79 mL/min/1.73 m2 [facility] DEPARTMENT OF Comment: PATHOLOGY AND GENOMIC [...] specimen Performing Organization Address City/State/Zipcode Phone Number [facility] DEPARTMENT OF PATHOLOGY AND [address] [place] [address] [employer] MEDICINE Sputum culture (04/26/2018 12:40 PM CDT) Sputum culture isolate Normal oral mic and (A) [facility] DEPARTMENT OF Comment: PATHOLOGY AND GENOMIC Specimen Information MEDICINE Specimen Source: Sputum Specimen Site: Expectorated Sputum culture isolate Serratia marcescens [facility] DEPARTMENT OF Occasional PATHOLOGY AND GENOMIC The performance characteristics of this assay on this isolate MEDICINE were validated by the Microbiology Laboratory at [facility].This source has not been approved by the [...] CRUZ <=0.5/9.5 mcg/mL: Susceptible Performing Organization Address [facility] Phone Number [facility] DEPARTMENT OF PATHOLOGY AND [address] [place] [address] [employer] MEDICINE Gram stain (04/26/2018 12:40 PM CDT) Gram stain isolate Few WBC's [facility] DEPARTMENT OF PATHOLOGY Few Gram positive rods AND GENOMIC MEDICINE Few Gram positive cocci in pairs Few Gram positive cocci in clusters Comment: Specimen Information Specimen Source: Sputum Specimen Site: Expectorated Specimen Sputum - Expectorated Performing Organization Address [facility] Phone Number [facility] DEPARTMENT OF PATHOLOGY AND [address] [place], [place] [id number] [facility] MEDICINE Phosphorus level (04/26/2018 5:43 AM CDT)Only the most recent of5 resultswithin the time period is included. Phosphorus 3.0 2.4 - 4.5 mg/dL [facility] DEPARTMENT OF PATHOLOGY AND GENOMIC MEDICINE Specimen Plasma specimen Performing Organization Address [facility] Phone Number [facility] DEPARTMENT OF PATHOLOGY AND [address] [place] [address] ECG 12 lead (04/25/2018 9:59 PM CDT)Only the most recent of2 resultswithin the time period is included. Ventricular rate 113 [facility] MUSE Atrial rate 113 [facility] MUSE AK interval 140 [facility] MUSE QRSD interval 86 [facility] MUSE QT interval 326 [facility] MUSE QTC interval 447 [facility] MUSE P axis 1 35 [facility] MUSE QRS axis 1 40 [facility] MUSE T wave axis 19 [facility] MUSE EKG impression Sinus tachycardia-Otherwise normal ECG-In [facility] MUSE automated comparison with ECG of 21-APR-2018 06:06,-ST now depressed in Anterior leads- Performing Organization Address [facility] Centercotn Phone Number [facility] [address] [place] [address] Respiratory pathogen panel (04/25/2018 6:13 PM CDT) Respiratory pathogen Negative for all pathogens tested: [facility] DEPARTMENT OF panel Negative for Adenovirus [...] Specimen Nares - Left Performing Organization Address [facility]n Phone Number [facility] DEPARTMENT OF PATHOLOGY AND [address] [place] [address] [employer] MEDICINE Urinalysis screen and microscopy, with reflex to culture (04/23/2018 6:20 AM CDT) Specimen site Clean catch [facility] DEPARTMENT OF PATHOLOGY AND GENOMIC MEDICINE Color, UA Yellow [facility] DEPARTMENT OF PATHOLOGY AND GENOMIC MEDICINE Appearance, UA Clear [facility] DEPARTMENT OF PATHOLOGY AND GENOMIC MEDICINE Specific gravity, UA 1.020 1.001 - 1.035 [facility] DEPARTMENT OF PATHOLOGY AND GENOMIC MEDICINE pH, UA 5.0 5.0 - 8.5 [facility] DEPARTMENT OF PATHOLOGY AND GENOMIC MEDICINE Protein, UA 1+ (A) Negative [facility] DEPARTMENT OF PATHOLOGY AND GENOMIC MEDICINE Glucose, UA Negative Negative [facility] DEPARTMENT OF PATHOLOGY AND GENOMIC MEDICINE Ketones, UA Negative Negative [facility] DEPARTMENT OF PATHOLOGY AND GENOMIC MEDICINE Bilirubin, UA Negative Negative [facility] DEPARTMENT OF PATHOLOGY AND GENOMIC MEDICINE Blood, UA Moderate (A) Negative [facility] DEPARTMENT OF PATHOLOGY AND GENOMIC MEDICINE Nitrite, UA Negative Negative [facility] DEPARTMENT OF PATHOLOGY AND GENOMIC MEDICINE Urobilinogen, UA <2.0 <2.0 [facility] DEPARTMENT OF PATHOLOGY AND GENOMIC MEDICINE Leukocyte esterase, UA Negative Negative [facility] DEPARTMENT OF PATHOLOGY AND GENOMIC MEDICINE Epithelial cells, UA 10 /HPF [facility] DEPARTMENT OF PATHOLOGY AND GENOMIC MEDICINE WBC, UA 1 0 - 4 /HPF [facility] DEPARTMENT OF PATHOLOGY AND GENOMIC MEDICINE RBC, UA 2 0 - 5 /HPF [facility] DEPARTMENT OF PATHOLOGY AND GENOMIC MEDICINE Bacteria, UA None seen None seen [facility] DEPARTMENT OF PATHOLOGY AND GENOMIC MEDICINE Yeast, UA Few (A) [facility] DEPARTMENT OF PATHOLOGY AND GENOMIC MEDICINE Yeast with pseudohyphae, UA None seen [facility] DEPARTMENT OF PATHOLOGY AND GENOMIC MEDICINE Hyaline casts, UA 1 /LPF [facility] DEPARTMENT OF PATHOLOGY AND GENOMIC MEDICINE Specimen Urine Performing Organization Address City/[facility]/Zipcode Phone Number [facility] DEPARTMENT OF PATHOLOGY AND [address] [place] [address] MEDICINE Urine culture (04/23/2018 6:20 AM CDT) Urine culture SEE COMMENTComment: Bacteriuria [facility] DEPARTMENT OF PATHOLOGY screen negative. AND GENOMIC MEDICINE Performing Organization Address City/[facility]/Zipcode Phone Number [facility] DEPARTMENT OF PATHOLOGY AND [address] [place] [address] Blood culture, aerobic & anaerobic (04/23/2018 2:18 AM CDT)Only the most recent of2 resultswithin the time period is included. Blood culture isolate No growth after 5 days of incubation. [facility] DEPARTMENT OF Comment: PATHOLOGY AND GENOMIC Specimen Information MEDICINE Specimen Source: Blood Specimen Site: Arm Specimen Blood - Arm Performing Organization Address City/State/Zipcode Phone Number [facility] DEPARTMENT OF PATHOLOGY AND [address] [place] [address] Surgical pathology request (04/21/2018 11:43 AM CDT)Only the most recent of10 resultswithin the time period is included. [facility] DEPARTMENT OF PATHOLOGY AND GENOMIC MEDICINE Surgical pathology See link below for PDF Lab [facility] DEPARTMENT OF report Report PATHOLOGY AND GENOMIC MEDICINE Result status This is Supplemental Report [facility] DEPARTMENT OF for [id number] PATHOLOGY AND GENOMIC MEDICINE Narrative Performed At [id number] [facility] DEPARTMENT OF PATHOLOGY AND GENOMIC NEOGENOMICS LAB MET FISH MEDICINE DOS 04/21/2018 Performing Organization Address City/[facility] Centercode Phone Number [facility] DEPARTMENT OF PATHOLOGY AND [address] [place] [address] GENOMIC [facility] Sodium level, syringe (04/21/2018 11:25 AM CDT)Only the most recent of3 resultswithin the time period is included. Sodium, syringe 138 135 - 148 mEq/L [facility] DEPARTMENT OF PATHOLOGY AND GENOMIC MEDICINE Specimen Blood Performing Organization Address City/[facility] Centercode Phone Number [facility] DEPARTMENT OF PATHOLOGY AND [address] [place] [address] GENOMIC MEDICINE Potassium, syringe (04/21/2018 11:25 AM CDT)Only the most recent of3 resultswithin the time period is included. Potassium, syringe 3.6 3.5 - 5.0 mEq/L [facility] DEPARTMENT OF PATHOLOGY AND GENOMIC MEDICINE Specimen Blood Performing Organization Address [facility] Centercode Phone Number [facility] DEPARTMENT OF PATHOLOGY AND [address] [place] [address] Ionized calcium, arterial (04/21/2018 11:25 AM CDT)Only the most recent of3 resultswithin the time period is included. Ionized calcium, arterial 1.08 (L) 1.11 - 1.32 mmol/L [facility] DEPARTMENT OF PATHOLOGY AND GENOMIC MEDICINE Specimen Blood Performing Organization Address City/[facility] Centercode Phone Number [facility] DEPARTMENT OF PATHOLOGY AND [address] [place] [address] GENOMIC MEDICINE Hemoglobin, syringe (04/21/2018 11:25 AM CDT)Only the most recent of3 resultswithin the time period is included. Hemoglobin, syringe 10.4 (L) 12.0 - 16.0 g/dL [facility] DEPARTMENT OF PATHOLOGY AND GENOMIC MEDICINE Specimen Blood Performing Organization Address City/[facility] Centercode Phone Number [facility] DEPARTMENT OF PATHOLOGY AND [address] [place] [address] Glucose level, syringe (04/21/2018 11:25 AM CDT)Only the most recent of3 resultswithin the time period is included. Glucose, syringe 162 (H) 65 - 99 mg/dL [facility] DEPARTMENT OF PATHOLOGY AND GENOMIC MEDICINE Specimen Blood Performing Organization Address City/[facility] Centercode Phone Number [facility] DEPARTMENT OF PATHOLOGY AND [address] [place] [address] Arterial blood gas (04/21/2018 11:25 AM CDT)Only the most recent of2 resultswithin the time period is included. pH, arterial 7.37 7.35 - 7.45 [facility] DEPARTMENT OF PATHOLOGY AND GENOMIC MEDICINE pCO2, arterial 46 (H) 35 - 45 mmHg [facility] DEPARTMENT OF PATHOLOGY AND GENOMIC MEDICINE pO2, arterial 122 (H) 80 - 90 mmHg [facility] DEPARTMENT OF PATHOLOGY AND GENOMIC MEDICINE Bicarbonate, arterial 25.9 21.0 - 28.0 mmol/L [facility] DEPARTMENT OF PATHOLOGY AND GENOMIC MEDICINE Base excess, arterial 1 -2 - 2 mEq/L [facility] DEPARTMENT OF PATHOLOGY AND GENOMIC MEDICINE O2 saturation, arterial 99 95 - 100 % [facility] DEPARTMENT OF PATHOLOGY AND GENOMIC MEDICINE Specimen Blood Performing Organization Address City/[facility] Centercode Phone Number [facility] DEPARTMENT OF PATHOLOGY AND [address] [place] [address] Miscellaneous referral test (04/21/2018 11:04 AM CDT)Only the most recent of2 resultswithin the time period is included. [facility] test name [employer] [facility] MET FISH [facility] test result SEE NOTE [facility] Comment: MET FISH Sample type: Paraffin, lung Case# [id number] RESULTS: NEGATIVE Interpretation: MET(7q31) signals per nucleus: [...] assay was scored manually by a certified electromechanical technologist. Two or more independent areas containing invasive tumor were analyzed and the technical results underwent further review for rn clinical quality purposes. Reference range: Positive: MET(7q31) to CEN7 signal ration is >/=2.0 or when 10% of tumor cells contain clusters of >15 copies per cell of MET (7q31) signals. Negative: MET(7q31) to CEN7 signal ratio is <2.0 Equivocal: MET copy number >/=5.0 and MET/CEN7 ratio <2.0 Probe set details: MET: nuc kiarra(CEN7x1.9,METx2.0)[50] Nuclei scored: 50 Test(s) performed by: [employer] [address] [place], [place] Narrative Performed At [id number] [facility] [employer] [facility] MET FISH DOS 04/21/2018 Performing Organization Address City/[facility]/Zipcode Phone Number [facility] [address] [place] [address] Arterial blood gas, corrected (04/21/2018 7:56 AM CDT) pH, arterial 7.30 (L) 7.35 - 7.45 [facility] DEPARTMENT OF PATHOLOGY AND GENOMIC MEDICINE pCO2, arterial 59 (H) 35 - 45 mmHg [facility] DEPARTMENT OF PATHOLOGY AND GENOMIC MEDICINE pO2, arterial 182 (H) 80 - 90 mmHg [facility] DEPARTMENT OF PATHOLOGY AND GENOMIC MEDICINE Temperature, Celsius 36.0 Degrees C [facility] DEPARTMENT OF PATHOLOGY AND GENOMIC MEDICINE O2 saturation, arterial 100 95 - 100 % [facility] DEPARTMENT OF PATHOLOGY AND GENOMIC MEDICINE pH, arterial corrected 7.32 [facility] DEPARTMENT OF PATHOLOGY AND GENOMIC MEDICINE pCO2, arterial corrected 56 mmHg [facility] DEPARTMENT OF PATHOLOGY AND GENOMIC MEDICINE pO2, arterial corrected 178 mmHg [facility] DEPARTMENT OF PATHOLOGY AND GENOMIC MEDICINE Base excess, arterial 2 -2 - 2 mEq/L [facility] DEPARTMENT OF PATHOLOGY AND GENOMIC MEDICINE Specimen Blood Performing Organization Address City/State/Zipcode Phone Number [facility] DEPARTMENT OF PATHOLOGY AND [address] [place] [address] [facility] MRI Brain W Wo Contrast (04/18/2018) Narrative Performed At Partial thromboplastin time, activated (04/11/2018 11:04 AM CDT) PTT 29.2 23.0 - 36.0 sec [facility] DEPARTMENT OF PATHOLOGY Comment: AND [facility] MEDICINE PTT therapeutic range for unfractionated heparin is 61.0-112.0 seconds which corresponds to Anti-Xa 0.3-0.7 U/ml. Specimen Blood Performing Organization Address City/[facility]/Zipcode Phone Number [facility] DEPARTMENT OF PATHOLOGY AND [address] [place] [address] GENOMIC MEDICINE XR Chest 1 Vw (04/06/2018 11:48 AM CDT)Only the most recent of3 resultswithin the time period is included. Narrative Performed At EXAMINATION:XR CHEST [address] CLINICAL HISTORY:R91.8 Other nonspecific abnormal finding of [...] have probably not changed in the interval. [id number] Procedure Note Interface, Radiology Results Incoming - 04/06/2018 12:33 [...] have probably not changed in the interval. [id number] Performing Organization Address City/[facility]/Zipcode Phone Number [facility] [address] [place] [address] CT Needle Biopsy No Contrast (04/06/2018 10:13 AM CDT)Only the most recent of2 resultswithin the time period is included. Narrative Performed At EXAMINATION:CT NEEDLE BIOPSY NO CONTRAST [facility] CLINICAL HISTORY:R91.8 Other nonspecific abnormal finding of [...] remained isn't metastatic during the observation period. [facility]-[id number] Procedure Note Interface, Radiology Results - 04/06/2018 3:11 PM CDT EXAMINATION: CT [...] remained isn't metastatic during the observation period. [facility]-[id number] Performing Organization Address City/State/Zipcode Phone Number [facility] [address] [place] [address] Cytology (non-gynecological) request (04/06/2018 9:35 AM CDT)Only the most recent of2 resultswithin the time period is included. [facility] DEPARTMENT OF PATHOLOGY AND GENOMIC MEDICINE Cytology See link below for PDF [facility] DEPARTMENT OF (non-gynecological) report Lab Report PATHOLOGY AND GENOMIC MEDICINE Result status This is Final Report to [facility] DEPARTMENT OF [id number] PATHOLOGY AND GENOMIC MEDICINE Performing Organization Address City/[facility] Centercode Phone Number [facility] DEPARTMENT OF PATHOLOGY AND [address] [place] [address] GENOMIC MEDICINE PET/CT Skull Base To Mid Thigh (03/28/2018 11:53 AM CDT) Narrative Performed At PROCEDURE:PET CT SKULL BASE TO MID THIGH [facility] INDICATION:Initial staging lung cancer. TECHNIQUE:Blood glucose measured [...] chest or distant metastasis outside the chest. [facility]-[id number] Procedure Note Interface, Radiology Results Incoming - 03/28/2018 2:31 PM CDT PROCEDURE: PET [...] chest or distant metastasis outside the chest. [facility]-[id number] Performing Organization Address City/State/Zipcode Phone Number [facility] [address] [place] [address] CT Chest Wo Contrast (03/06/2018 8:25 AM CDT)Only the most recent of2 resultswithin the time period is included. Narrative Performed At EXAMINATION: [facility] CT CHEST WO CONTRAST CLINICAL HISTORY: Shortness [...] MRI bone survey may be of benefit. [facility]-[id number] Procedure Note [facility], Radiology Results - 03/06/2018 9:41 AM CDT EXAMINATION: CT [...] MRI bone survey may be of benefit. [facility]-[id number] Performing Organization Address City/[facility] Centercode Phone Number [facility] [address] [place] [address] Pulmonary function tests, complete (02/08/2018) Narrative Performed At PET/CT Whole Body External Study (01/12/2018 10:59 AM CDT) Narrative Performed At This exam was not acquired at a [facility]oroastrian facility and has not been [facility] interpreted by a Zoroastrian Provider.The exam was imported into our imaging system for comparisons purposes. Performing Organization Address [facility] Centercode Phone Number [facility] [address] [place] [address] PET/CT Skull Base Mid Thigh External Study (01/12/2018) Narrative Performed At CT Chest External Study (12/28/2017 4:32 PM CDT) Narrative Performed At This exam was not acquired at a [facility]oroast[facility] facility and has not been [facility] interpreted by a Zoroastrian Provider.The exam was imported into our imaging system for comparisons purposes. Performing Organization Address [facility] Centercotn Phone Number [facility] [address] [place] [address] after 08/23/2017 Insurance Payer Benefit Plan / Group Subscriber ID Type Phone Address MEDICARE MEDICARE PART A AND B xxxxxxxxxxx Medicare [place], [place] ([place]) [place] [address] Advance Directives Patient has advance care planning documents on file. For more information, please contact:[address] [address]
--- NOTE | 2018-08-25 18:09 | EKG ---
Test Date: 2018-08-24 Test Time: 18:05:42 Provisioning Specialist: ANASTASIIA MEASUREMENT RESULTS: Intervals: Rate: 101 CA: 138 QRSD: 82 QT: 340 QTc: 440 [place]: P: 45 CA: 138 QRS: 71 T: 44 INTERPRETIVE STATEMENTS: Sinus tachycardia Otherwise normal ECG Compared to ECG 07/07/2016 14:25:52 Sinus rhythm no longer present Electronically Signed On 08-25-18 18:05:38 [employer]
== END 2018-08-24 20:02 | disposition home or self-care (01) ==
LOC: ER 17:06
DX: J20.9 Acute bronchitis, unspecified (principal); D70.9 Neutropenia, unspecified; I10 Essential (primary) hypertension; E03.9 Hypothyroidism, unspecified; C34.90 Malignant neoplasm of unspecified part of unspecified bronchus or lung; Z88.5 Allergy status to narcotic agent; Z88.8 Allergy status to other drugs, medicaments and biological substances
CPT/HCPCS: 36415; 71045; 80048; 80076; 83735; 83880; 84484; 85025; 85610; 87040 ×2; 93005; 94640; 96361; 96374; 96375; 99285; J2405; J2930; J7030

== ENCOUNTER 2018-11-26 18:29 | Inpatient (IN) | payer OTHER ==
--- OUTSIDE RECORDS SUMMARY | 2018-11-26 18:34 | XMS REPORT | Clinical Summary ---
:1965 Author Organization [facility] Address [address] [place] [address] Care Team Providers Name Role Phone Juan [...] mouth every LEVOTHROID) 50 MCG morning. tablet sertraline (ZOLOFT) 50 Take 50 mg by [...] 05/23/20 Active 800 MCG (800 mcg total) tabletIndications: by mouth daily. Bilateral lung cancer (HCC) colestipol (COLESTID) Take 1 g by 0 Active 1 gram tablet mouth 2 (two) times a day. traZODone (DESYREL) Take 100 mg by 0 Active 100 MG tablet mouth nightly. dexamethasone Take 1 tablet (4 10 tablet 6 11/07/19 Active (DECADRON) 4 MG mg total) by tabletIndications: mouth 2 (two) Bilateral lung cancer times a day with (HCC) meals for 31 days. Take med on Day 2 and Day 3 following chemotherapy diphenoxylate-atropine Take 1 tablet by 100 tablet 0 11/21/19 Active (LOMOTIL) 2.5-0.025 mg mouth 4 (four) 019 per tabletIndications: times a day as Bilateral lung cancer needed for (HCC) diarrhea (Max of 8 tabs per day) for up to 30 days. ondansetron (ZOFRAN) 4 Take 1 tablet (4 50 tablet 3 11/21/19 Active MG tabletIndications: mg total) by 19 Bilateral lung cancer mouth every 6 (HCC) (six) hours as needed for nausea or vomiting. promethazine Take 1 tablet 50 tablet 3 11/21/19 Active (PHENERGAN) 25 MG (25 mg total) by 019 tabletIndications: mouth every 4 Bilateral lung cancer (four) hours as (HCC) needed for nausea or vomiting for up to 30 days. acyclovir (ZOVIRAX) Take 400 mg by 0 Discontinued 400 MG tablet mouth daily. 018 fentaNYL (DURAGESIC) Place 1 patch on 0 Discontinued 100 mcg/hr the skin every 018 other day. ondansetron (ZOFRAN) 4 Take 4 mg by 0 Discontinued MG tablet mouth every 12 019 (twelve) hours as needed for nausea or vomiting. aspirin (ECOTRIN) 81 Take 81 mg by [...] (TYLENOL WITH CODEINE by mouth every 6 #3) 300-30 mg per (six) hours as [...] (TYLENOL WITH CODEINE by mouth every 6 18 018 #3) 300-30 mg per (six) hours as tablet needed for moderate pain for up to 30 days. benadryl/lidocaine/maa Swish and spit 120 mL 0 06/23/20 Discontinued lox (MAGIC MOUTHWASH) 10 mL every 6 18 018 1:1:1 suspension (six) hours as suspension needed (mouth sores/pain). chlorhexidine Apply 15 mL to 900 mL 0 06/23/20 (PERIDEX) 0.12 % the mouth or 18 018 solution throat 2 (two) times a day for 30 days. nystatin (MYCOSTATIN) Take 5 mL 60 mL 0 06/23/20 100,000 unit/mL (500,000 Units 18 018 suspension total) by mouth 2 (two) times a day for 30 days. Swish in mouth Active Problems Problem Noted Date Arthritis 06/14/2018 Coronary artery disease involving tolowa dee-ni' coronary artery of tolowa dee-ni' heart 06/14 without angina pectoris Bilateral lung cancer 04/21/2018 Distal radius fracture, left 07/20/2016 Displaced fracture of distal end of left radius 07/15/2016 Encounters Date Type Specialty Care Team Description 11/23/2018 Orders Only Oncology Jakob Carrera MD Bilateral lung cancer (HCC) 11/20/2018 Telephone Oncology Elder Ratliff RN 11/20/2018 Orders Only Oncology Elder Ratliff Bilateral lung ALEX Penn cancer (HCC) (Primary Dx) 11/07/2018 Hospital Encounter Radiology Jakob Carrera MD Bilateral lung cancer (HCC) 11/06/2018 Office Visit Oncology Jakob Carrera MD Bilateral lung cancer (HCC ) (Primary Dx); Arthritis 11/06/2018 Infusion Oncology Jakob Carrera MD Bilateral lung cancer (HCC) (Primary Dx) 11/06/2018 Social Work Oncology Claudio Albarado, LACY 11/06/2018 Orders Only Oncology Ratliff, Lotti Bilateral lung Fili, RN cancer (HCC) (Primary Dx) 11/06/2018 Telephone Oncology Jakob Carrera MD 11/06/2018 Orders Only Oncology Ratliff, Lotti Bilateral lung Fili, RN cancer (HCC) (Primary Dx) 10/17/2018 Telephone Oncology Jakob Carrera MD 10/16/2018 Office Visit Oncology Jakob Carrera MD Bilateral lung cancer (HCC ) (Primary Dx); Arthritis 10/16/2018 Infusion Oncology Jakob Carrera MD Bilateral lung cancer (HCC) (Primary Dx) 10/16/2018 Orders Only Oncology Elder Ratliff RN 10/16/2018 Refill Oncology Barb Mishra RN 10/12/2018 Hospital Encounter Radiology Jakob Carrera MD Bilateral lung cancer (HCC) 10/11/2018 Office Visit Oncology Jakob Carrera MD Bilateral lung cancer (HCC ) (Primary Dx); Nausea; ROSALVA (acute kidney injury) (HCC); Dizziness 10/11/2018 Infusion Oncology Jakob Carrera MD Bilateral lung cancer (HCC) (Primary Dx) 10/11/2018 Orders Only Oncology Gaudencio, Lotti Bilateral lung Fili, RN cancer (HCC) (Primary Dx) 10/03/2018 Orders Only Oncology Charline Torres, [facility] 10/03/2018 Orders Only Oncology Charline Torres, [facility] 10/02/2018 Office Visit Oncology Jakob Carrera MD Bilateral lung cancer (HCC ) (Primary Dx); Arthritis 10/02/2018 Infusion Oncology Jakob Carrera MD Bilateral lung cancer (HCC) (Primary Dx) 09/29/2018 Hospital Encounter Radiology Jakob Carrera MD Coronary artery disease involving tolowa dee-ni' coronary artery of tolowa dee-ni' heart without angina pectoris ; Arthritis; Bilateral lung cancer (HCC) 09/29/2018 Orders Only Oncology Jakob Carrera MD Bilateral lung cancer (HCC) 09/28/2018 Oncology Oncology Mallorie Branch RN 09/27/2018 Infusion Oncology Jakob Carrera MD Bilateral lung cancer (HCC) (Primary Dx) 09/27/2018 Orders Only Oncology Ratliff, Lotti Primary lung cancer with metastasis from lung to other site, right (HCC) (Primary Dx); ALEX Penn Anemia, unspecified type 09/27/2018 Hospital Encounter Access Waqas Phipps MD 09/27/2018 Orders Only Oncology Elder Ratliff, RN 09/27/2018 Orders Only Oncology Elder Ratliff RN 09/26/2018 Orders Only Oncology Ratliff, Lotti Bilateral lung Fili, RN cancer (HCC) (Primary Dx) 09/26/2018 Orders Only Oncology Junior Araceli, Coronary artery disease involving tolowa dee-ni' coronary artery of tolowa dee-ni' heart without angina pectoris ( Primary Dx); TRAVIS Arthritis; Bilateral lung cancer (HCC) 09/25/2018 Documentation Oncology Kanchan Hartman MA 09/22/2018 Orders Only Oncology Ratliff, Lotti Bilateral lung Fili, RN cancer (HCC) (Primary Dx) 09/21/2018 Orders Only Oncology Ratliff, Lotti Bilateral lung Fili, RN cancer (HCC) (Primary Dx) 09/21/2018 Telephone Oncology Jakob Carrera MD 09/13/2018 Orders Only Oncology Pacheco, Araceli, Coronary artery disease involving tolowa dee-ni' coronary artery of tolowa dee-ni' heart without angina pectoris ( Primary Dx); TRAVIS Arthritis; Bilateral lung cancer (HCC) 09/11/2018 Office Visit Oncology Jakob Carrera MD Bilateral lung cancer (HCC ) (Primary Dx); Arthritis; Coronary artery disease involving tolowa dee-ni' coronary artery of tolowa dee-ni' heart without angina pectoris 09/11/2018 Infusion Oncology Jakob Carrera MD Bilateral lung Colluro, cancer (HCC) ALEX Argueta (Primary Dx) 09/08/2018 Infusion Oncology Jakob Carrera MD Bilateral lung Champagne, cancer (HCC) ALEX Valera (Primary Dx) 09/08/2018 Telephone Oncology Elder Ratliff RN 08/23/2018 Telephone Oncology Jakob Carrera MD 08/17/2018 [...] Encounter Radiology Jakob Carrera MD Bilateral lung Bernicker, cancer (HCC) Wang Asif MD 07/26/2018 Orders Only Oncology Kaylene Marion lung moraima Jerome (HCC) 07/25/2018 Orders Only Oncology Earnest Villagran RN 07/13/2018 Orders Only Oncology Kanchan Hartman MA 07/05/2018 Office Visit Oncology Jakob Carrera MD Bilateral lung cancer (HCC ) (Primary Dx); Coronary artery disease involving tolowa dee-ni' coronary artery of tolowa dee-ni' heart without angina pectoris; Arthritis 07/05/2018 Infusion Oncology Jakob Carrera MD Bilateral lung cancer (HCC) (Primary Dx) 07/05/2018 Orders Only Cardiology Araceli Pacheco, Bilateral lung [place] cancer (HCC) (Primary Dx) 07/04/2018 Orders Only Oncology Jakob Carrera MD 06/26/2018 Hospital Encounter Radiology Jakob Carrera MD Bilateral lung cancer (HCC) 06/23/2018 Orders Only Oncology Elder Ratliff Bilateral lung ALEX Penn cancer (HCC) (Primary Dx) 06/23/2018 Telephone Oncology Jakob Carrera MD 06/19/2018 Clinical Support Neurosurgery Ho, Chronic pain ALEX Perez syndrome (Primary Dx) 06/14/2018 Office Visit Oncology [...] Carrera MD 05/25/2018 Orders Only Oncology Jennifer Trinh, ALEX 05/24/2018 Office Visit Cardiothoracic Janice, Surgery follow-up examination (Primary Dx); Surgery Candy Gaytan NP Bilateral lung cancer Stephan Weir MD 05/23/2018 Lab Lab Jakob Carrera MD Bilateral lung cancer 05/23/2018 Office Visit Oncology Jakob Carrera MD Bilateral lung cancer (Primary Dx) 05/19/2018 Telephone Cardiothoracic Deloris Castellanos [facility] [place] 04/21/2018 Surgery Cardiothoracic Stephan Weir FLEXIBLE BRONSCOPY Surgery MD Jose 04/21/2018 Anesthesia Event Cardiothoracic Demar Surgery Venus DATA REPORT ANALYST 04/21/2018 Hospital Encounter Cardiology Stephan Weir Bilateral lung - MD Jose cancer 04/27/2018 04/20/2018 Orders Only Cardiothoracic Provider, Surgery MD Dustin 04/13/2018 Surgery Cardiothoracic Stephan Weir FLEXIBLE Surgery MD Jose BRONCHOSCOPY 04/13/2018 Anesthesia Event Cardiothoracic Kasi Vega Surgery MD 04/13/2018 Hospital Encounter Cardiothoracic Stephan Weir MD 04/12/2018 Telephone Cardiothoracic Andres [place], [place] 04/11/2018 Lab Lab Stephan Weir Bilateral [...] Provider, Surgery MD Dustin 03/24/2018 Telephone Cardiothoracic Andres, Surgery TRAVIS Fernandez 03/24/2018 Transcribe Orders Radiology Mac, Mass of left lung Osman Macdonald MD (Primary Dx) 03/22/2018 Transcribe Orders Access Mac, Malignant neoplasm Osman Macdonald MD of [...] Hospital Encounter Radiology Osman Watts MD after 11/25/2017 Family History Medical History Relation Name Comments [...] Vital Sign Reading Time Taken Blood Pressure 141/80 11/06/2018 3:43 PM FOLDED TOWEL MACHINE OPERATOR Pulse 88 11/06/2018 3:43 PM FOLDED TOWEL MACHINE OPERATOR Temperature 35.9 C (96.6 F) 11/06/2018 3:43 PM FOLDED TOWEL MACHINE OPERATOR Respiratory Rate 18 11/06/2018 3:43 PM FOLDED TOWEL MACHINE OPERATOR Oxygen Saturation 99% 11/06/2018 3:43 PM FOLDED TOWEL MACHINE OPERATOR Inhaled Oxygen Concentration - - Weight 101 kg (223 lb 8.7 oz) 11/06/2018 10:02 AM FOLDED TOWEL MACHINE OPERATOR Height 157.5 cm (5' 2") 11/06/2018 10:02 AM FOLDED TOWEL MACHINE OPERATOR Body Mass Index 40.89 11/06/2018 10:02 AM FOLDED TOWEL MACHINE OPERATOR Plan of Treatment Date Type Specialty Care Team Description 11/27/2018 Infusion Oncology Jakob Carrera MD [address] [address] [phone] 11/27/2018 Office Visit Oncology Jakob Carrera MD [address] [phone] 11/28/2018 Office Visit Cardiothoracic Surgery Stephan Weir MD [address] [facility] [address] [place] [address] [phone] 12/18/2018 Infusion Oncology Jakob Carrera MD [address] [id number] Health Maintenance Due Date Last Done Comments CERVICAL CANCER SCREENING 1984 BREAST CANCER SCREENING 2013 COLON CANCER SCREENING 2013 SHINGLES VACCINES (#1) 2013 INFLUENZA VACCINE 04/05/2018 Implants Implanted Type Area Fiberglass Roller Device Shelf Model / Identifier Expiration Serial / Date Lot Port Injctbl Smart Port Ct W/ Dtchd Plyurthn Cath 8fr - [id number] Implantable N/A: [employer] 01/02/2021 [id number] / Implanted: 06/12/2018 (Quantity not on file) Infusion Ports N/A / or Accessories [id number] Infsn Synchromed Ii W/ Fltr Sut Loop Prgrmbl Rsvr 20ml - [id number] Neurosurgical N/A: [employer] 10/19/2019 [id number] / Implanted: Qty: 1 on 06/09/2018 by Travon Grace MD Implants N/A NEUROMODULATION / [id number] Passer Intrathcl Cath Rp Tip Obtrtr 38cm - [id number] Surgical N/A: [employer] [facility] - 08/25/2019 [id number] / Implanted: Qty: 1 on 06/09/2018 by Travon Grace MD Implantable N/A NEUROLOGICAL / Shunts or Shunt [id number] Extenders Kit Selnt Fibrin Humn Hmsts Surgy 5ml Evicel - [id number] Surgical N/A: ETHICON US-EH 07/05/2019 [id number] / Implanted: Qty: 1 on 04/21/2018 by Stephan Weir MD Implants; N/A / Expanders; [id number] Extenders; Surgical Wires Closure Wnd Tiss Rpr Sys - [id number] Surgical N/A: ANULEX 03/17/2022 XC [id number] / Implanted: Qty: 1 on 06/09/2018 by Travon Grace MD Implants; N/A [employer] / Expanders; [id number] Extenders; Surgical Wires Procedures Procedure Name Priority Date/Time Associated Comments Diagnosis CT CHEST WO CONTRAST Routine 11/07/2018 11:41 Bilateral lung Results for this AM FOLDED TOWEL MACHINE OPERATOR cancer (HCC) procedure are in the results section. TRANSFUSE RED BLOOD Routine 11/06/2018 3:44 Bilateral lung CELLS PM FOLDED TOWEL MACHINE OPERATOR cancer (HCC) PREPARE RBC Routine 11/06/2018 10:40 Bilateral lung Results for this AM FOLDED TOWEL MACHINE OPERATOR cancer (HCC) procedure are in the results section. TYPE AND SCREEN Routine 11/06/2018 10:40 Bilateral lung Results for this AM FOLDED TOWEL MACHINE OPERATOR cancer (HCC) procedure are in the results section. MANUAL DIFFERENTIAL STAT 11/06/2018 10:17 Results for this AM FOLDED TOWEL MACHINE OPERATOR procedure are in the results section. ESTIMATED GFR STAT 11/06/2018 10:17 Results for this AM FOLDED TOWEL MACHINE OPERATOR procedure are in the results section. MAGNESIUM LEVEL STAT 11/06/2018 10:17 Bilateral lung Results for this AM FOLDED TOWEL MACHINE OPERATOR cancer (HCC) procedure are in the results section. COMPREHENSIVE METABOLIC STAT 11/06/2018 10:17 Bilateral lung Results for this PANEL AM FOLDED TOWEL MACHINE OPERATOR cancer (HCC) procedure are in the results section. CBC WITH PLATELET AND STAT 11/06/2018 10:17 Bilateral lung Results for this DIFFERENTIAL AM FOLDED TOWEL MACHINE OPERATOR cancer (HCC) procedure are in the results section. LDH STAT 10/16/2018 1:05 Results for this PM FOLDED TOWEL MACHINE OPERATOR procedure are in the results section. ESTIMATED GFR STAT 10/16/2018 1:05 Results for this PM FOLDED TOWEL MACHINE OPERATOR procedure are in the results section. CREATININE LEVEL STAT 10/16/2018 1:05 Results for this PM FOLDED TOWEL MACHINE OPERATOR procedure are in the results section. THYROID STIMULATING STAT 10/16/2018 1:05 Results for this HORMONE PM FOLDED TOWEL MACHINE OPERATOR procedure are in the results section. ESTIMATED GFR STAT 10/16/2018 10:30 Results for this AM FOLDED TOWEL MACHINE OPERATOR procedure are in the results section. MAGNESIUM LEVEL STAT 10/16/2018 10:30 Bilateral lung Results for this AM FOLDED TOWEL MACHINE OPERATOR cancer (HCC) procedure are in the results section. COMPREHENSIVE METABOLIC STAT 10/16/2018 10:30 Bilateral lung Results for this PANEL AM FOLDED TOWEL MACHINE OPERATOR cancer (HCC) procedure are in the results section. HC COMPLETE BLD COUNT STAT 10/16/2018 10:30 Bilateral lung Results for this W/AUTO DIFF AM FOLDED TOWEL MACHINE OPERATOR cancer (HCC) procedure are in the results section. MRI BRAIN W WO CONTRAST Routine 10/12/2018 2:33 Bilateral lung Results for this PM FOLDED TOWEL MACHINE OPERATOR cancer (HCC) procedure are in the results section. ESTIMATED GFR STAT 10/11/2018 10:20 Results for this AM FOLDED TOWEL MACHINE OPERATOR procedure are in the results section. MAGNESIUM LEVEL STAT 10/11/2018 10:20 Bilateral lung Results for this AM FOLDED TOWEL MACHINE OPERATOR cancer (HCC) procedure are in the results section. COMPREHENSIVE METABOLIC STAT 10/11/2018 10:20 Bilateral lung Results for this PANEL AM FOLDED TOWEL MACHINE OPERATOR cancer (HCC) procedure are in the results section. HC COMPLETE BLD COUNT STAT 10/11/2018 10:20 Bilateral lung Results for this W/AUTO DIFF AM FOLDED TOWEL MACHINE OPERATOR cancer (HCC) procedure are in the results section. MANUAL DIFFERENTIAL STAT 10/02/2018 11:47 Results for this AM FOLDED TOWEL MACHINE OPERATOR procedure are in the results section. ESTIMATED GFR STAT 10/02/2018 11:47 Results for this AM FOLDED TOWEL MACHINE OPERATOR procedure are in the results section. MAGNESIUM LEVEL STAT 10/02/2018 11:47 Bilateral lung Results for this AM FOLDED TOWEL MACHINE OPERATOR cancer (HCC) procedure are in the results section. COMPREHENSIVE METABOLIC STAT 10/02/2018 11:47 Bilateral lung Results for this PANEL AM FOLDED TOWEL MACHINE OPERATOR cancer (HCC) procedure are in the results section. CBC WITH PLATELET AND STAT 10/02/2018 11:47 Bilateral lung Results for this DIFFERENTIAL AM FOLDED TOWEL MACHINE OPERATOR cancer (HCC) procedure are in the results section. PET CT SKULL BASE TO Routine 09/29/2018 11:04 Coronary artery Results for this MID THIGH AM FOLDED TOWEL MACHINE OPERATOR disease involving procedure are in tolowa dee-ni' coronary the results artery of tolowa dee-ni' section. heart without angina pectoris Arthritis Bilateral lung cancer (HCC) POC GLUCOSE Routine 09/29/2018 9:54 Results for this AM FOLDED TOWEL MACHINE OPERATOR procedure are in the results section. TRANSFUSE RED BLOOD Routine 09/27/2018 6:22 Bilateral lung CELLS PM FOLDED TOWEL MACHINE OPERATOR cancer (HCC) TRANSFUSE RED BLOOD Routine 09/27/2018 4:47 Bilateral lung CELLS PM FOLDED TOWEL MACHINE OPERATOR cancer (HCC) MANUAL DIFFERENTIAL STAT 09/27/2018 10:30 Results for this AM FOLDED TOWEL MACHINE OPERATOR procedure are in the results section. CBC WITH PLATELET AND STAT 09/27/2018 10:30 Bilateral lung Results for this DIFFERENTIAL AM FOLDED TOWEL MACHINE OPERATOR cancer (HCC) procedure are in the results section. PREPARE RBC STAT 09/27/2018 10:10 Bilateral lung Results for this AM FOLDED TOWEL MACHINE OPERATOR cancer (HCC) procedure are in the results section. ANTIBODY SCREEN (GEL) STAT 09/27/2018 10:10 Results for this AM FOLDED TOWEL MACHINE OPERATOR procedure are in the results section. ANTIBODY IDENTIFICATION STAT 09/27/2018 10:10 Results for this AM FOLDED TOWEL MACHINE OPERATOR procedure are in the results section. TYPE AND SCREEN STAT 09/27/2018 10:10 Bilateral lung Results for this AM FOLDED TOWEL MACHINE OPERATOR cancer (HCC) procedure are in the results section. TRANSFUSE RED BLOOD STAT 09/11/2018 12:33 Bilateral lung CELLS PM FOLDED TOWEL MACHINE OPERATOR cancer (HCC) TRANSFUSE RED BLOOD STAT 09/11/2018 10:53 Bilateral lung CELLS AM FOLDED TOWEL MACHINE OPERATOR cancer (HCC) SMEAR REVIEW STAT 09/11/2018 7:59 Results for this AM FOLDED TOWEL MACHINE OPERATOR procedure are in the results section. ESTIMATED GFR STAT 09/11/2018 7:59 Results for this AM FOLDED TOWEL MACHINE OPERATOR procedure are in the results section. MAGNESIUM LEVEL STAT 09/11/2018 7:59 Bilateral lung Results for this AM FOLDED TOWEL MACHINE OPERATOR cancer (HCC) procedure are in the results section. COMPREHENSIVE METABOLIC STAT 09/11/2018 7:59 Bilateral lung Results for this PANEL AM FOLDED TOWEL MACHINE OPERATOR cancer (HCC) procedure are in the results section. HC COMPLETE BLD COUNT STAT 09/11/2018 7:59 Bilateral lung Results for this W/AUTO DIFF AM FOLDED TOWEL MACHINE OPERATOR cancer (HCC) procedure are in the results section. PREPARE RBC STAT 09/08/2018 1:49 Results for this PM FOLDED TOWEL MACHINE OPERATOR procedure are in the results section. TYPE AND SCREEN STAT 09/08/2018 1:49 Bilateral lung Results for this PM FOLDED TOWEL MACHINE OPERATOR cancer (HCC) procedure are in the results section. MANUAL DIFFERENTIAL STAT 09/08/2018 11:45 Results for this AM FOLDED TOWEL MACHINE OPERATOR procedure are in the results section. ESTIMATED GFR STAT 09/08/2018 11:45 Results for this AM FOLDED TOWEL MACHINE OPERATOR procedure are in the results section. MAGNESIUM LEVEL STAT 09/08/2018 11:45 Bilateral lung Results for this AM FOLDED TOWEL MACHINE OPERATOR cancer (HCC) procedure are in the results section. COMPREHENSIVE METABOLIC STAT 09/08/2018 11:45 Bilateral lung Results for this PANEL AM FOLDED TOWEL MACHINE OPERATOR cancer (HCC) procedure are in the results section. CBC WITH PLATELET AND STAT 09/08/2018 11:45 Bilateral lung Results for this DIFFERENTIAL AM FOLDED TOWEL MACHINE OPERATOR cancer (HCC) procedure are in the results section. TRANSFUSE RED BLOOD Routine 08/17/2018 3:14 Bilateral lung CELLS PM FOLDED TOWEL MACHINE OPERATOR cancer (HCC) TRANSFUSE RED BLOOD Routine 08/17/2018 12:45 Bilateral lung CELLS PM FOLDED TOWEL MACHINE OPERATOR cancer (HCC) PREPARE RBC Routine 08/16/2018 11:27 Results for this AM FOLDED TOWEL MACHINE OPERATOR procedure are in the results section. TYPE AND SCREEN Routine 08/16/2018 11:27 Bilateral lung Results for this AM FOLDED TOWEL MACHINE OPERATOR cancer (HCC) procedure are in the results section. MANUAL DIFFERENTIAL STAT 08/16/2018 11:15 Results for this AM FOLDED TOWEL MACHINE OPERATOR procedure are in the results section. ESTIMATED GFR STAT 08/16/2018 11:15 Results for this AM FOLDED TOWEL MACHINE OPERATOR procedure are in the results section. MAGNESIUM LEVEL STAT 08/16/2018 11:15 Bilateral lung Results for this AM FOLDED TOWEL MACHINE OPERATOR cancer (HCC) procedure are in the results section. COMPREHENSIVE METABOLIC STAT 08/16/2018 11:15 Bilateral lung Results for this PANEL AM FOLDED TOWEL MACHINE OPERATOR cancer (HCC) procedure are in the results section. CBC WITH PLATELET AND STAT 08/16/2018 11:15 Bilateral lung Results for this DIFFERENTIAL AM FOLDED TOWEL MACHINE OPERATOR cancer (HCC) procedure are in the results section. ESTIMATED GFR STAT 07/26/2018 10:22 Results for this AM FOLDED TOWEL MACHINE OPERATOR procedure are in the results section. MAGNESIUM LEVEL STAT 07/26/2018 10:22 Bilateral lung Results for this AM FOLDED TOWEL MACHINE OPERATOR cancer (HCC) procedure are in the results section. COMPREHENSIVE METABOLIC STAT 07/26/2018 10:22 Bilateral lung Results for this PANEL AM FOLDED TOWEL MACHINE OPERATOR cancer (HCC) procedure are in the results section. HC COMPLETE BLD COUNT STAT 07/26/2018 10:22 Bilateral lung Results for this W/AUTO DIFF AM FOLDED TOWEL MACHINE OPERATOR cancer (HCC) procedure are in the results section. CT CHEST W CONTRAST Routine 07/26/2018 10:04 Bilateral lung Results for this ABDOMEN W CONTRAST AM FOLDED TOWEL MACHINE OPERATOR cancer (HCC) procedure are in PELVIS W CONTRAST the results section. POC CREATININE Routine 07/26/2018 9:14 Results for this AM FOLDED TOWEL MACHINE OPERATOR procedure are in the results section. ESTIMATED GFR Routine 07/26/2018 9:14 Results for this AM FOLDED TOWEL MACHINE OPERATOR procedure are in the results section. ESTIMATED GFR STAT 07/05/2018 10:24 Results for this AM CDT procedure are in the results section. MAGNESIUM LEVEL STAT 07/05/2018 10:24 Bilateral lung Results for this AM CDT cancer (HCC) procedure are in the results section. COMPREHENSIVE METABOLIC STAT 07/05/2018 10:24 Bilateral lung Results for this PANEL AM CDT cancer (HCC) procedure are [...] procedure are in the results section. COMPREHENSIVE METABOLIC STAT 06/14/2018 11:19 Bilateral lung Results for this PANEL AM CDT cancer (HCC) procedure are [...] CDT procedure are in the results section. MI AN ELECTIVE Routine 06/09/2018 8:29 ENDOTRACHEAL AIRWAY AM CDT Procedure Note - Ta Scott CRNA - 06/09/2018 8:29 AM CDT Airway Date/Time: 06/09/2018 7:46 AM Performed by: TA SCOTT Authorized by: RASHEL RAY Location: OR Urgency: Elective Difficult Airway: No Resident/DATA REPORT ANALYST/AA: TA SCOTT Performed by: resident/DATA REPORT ANALYST/AA Preoxygenated with 100% O2: Yes C-spine Precautions [...] AM CDT Procedure Note - Susan Caceres, DATA REPORT ANALYST - 04/21/2018 9:17 AM CDT Arterial line [...] BLOOD GAS STAT 04/21/2018 8:59 AM CDT MI AN ELECTIVE ENDOTRACHEAL Routine 04/21/2018 8:39 AM CDT AIRWAY Procedure Note - Amairani Will - 04/21/2018 8:39 AM CDT Airway Date/Time: 04/21/2018 7:45 AM Performed by: MILADY SOLIS Authorized by: MILADY SOLIS Location: OR Urgency: Elective Difficult Airway: No Anesthesiologist: MILADY SOLIS Resident/DATA REPORT ANALYST/AA: SUSAN CACERES Other Anesthesia Staff: AMAIRANI WILL [...] MRI BRAIN W WO CONTRAST Routine 04/18/2018 MI AN ELECTIVE ENDOTRACHEAL Routine 04/13/2018 7:26 AM CDT AIRWAY Procedure Note - Raiza Casiano MD - 04/13/2018 7:26 AM CDT Airway Date/Time: 04/13/2018 7:26 AM Performed by: RAIZA CASIANO Authorized by: RAIZA CASIANO Location: OR Urgency: Elective Difficult Airway: No Anesthesiologist: RAIZA CASIANO Resident/DATA REPORT ANALYST/AA: KASI VEGA Performed by: resident/DATA REPORT ANALYST/AA Preoxygenated with 100% O2: Yes C-spine Precautions [...] CT CHEST WO CONTRAST Routine 12/28/2017 after 11/25/[address] Chest Wo Contrast (11/07/2018 11:41 AM FOLDED TOWEL MACHINE OPERATOR)Only the most recent of3 resultswithin the time period is included. Narrative Performed At EXAMINATION: CT CHEST WO CONTRAST HM [facility]ANT CLINICAL HISTORY: C34.91 Malignant neoplasm of unspecified part of right bronchus or lung, C34.92 Malignant neoplasm of unspecified part of left bronchus or lung, lung ca TECHNIQUE:Axial images of the chest were obtained without intravenous contrast. The lack of intravenous contrast reduces the sensitivity of the exam and evaluating vasculature. CT imaging was performed with iterative reconstruction technique and/or automated exposure control to reduce radiation dose. COMPARISON:07/26/2018, 03/06/2018 FINDINGS: Lungs and airways: Status post right upper lobectomy. Nodular density abutting the mediastinal pleura at the resection margin is decrease in size now measuring 1.1 x 5.5 cm compared to 1.3 x 0.8 cm on prior. Stable postoperative scarring and band like atelectasis in the remaining right lung. Stable 1.3 cm pneumatocele of the right lung abutting the major fissure. Mild increased herniation of the right lower lobe between the seventh and eighth right lateral ribs. Stable part solid pleural-based opacity in the left upper lobe (series 3 image 28) measuring approximately 13 mm and unchanged from baseline CT of 12/28/2017. Diffuse random groundglass nodularity noted throughout the lobes as before similar in distribution and potentially related to endobronchial tumor spread. Continued follow-up recommended. New area of postinflammatory scarring in the posterior subpleural left lower lobe (series 3 image 88) measuring up to 1.8 cm without central confluent nodule. Pleura: No pleural effusion or pneumothorax. Mediastinum and lymph nodes: No lymphadenopathy. Left hemithyroidectomy. Cardiovascular: Heart size is within normal limits. Trace pericardial effusion. Right IJ portacatheter with tip in the distal proximal right atrium. Upper abdomen: Status post cholecystectomy. Bones: No suspicious osseous lesions. Healed right rib fractures from prior thoracotomy. Mild degenerative changes of the thoracic spine. IMPRESSION: 1.Status post right upper lobectomy with interval decrease in size of nodular density abutting the mediastinal pleura at the resection margin as described above. 2.Stable 13 mm left upper lobe pulmonary nodule, unchanged from baseline. 3. Diffuse random groundglass nodularity of the lungs bilaterally may related to endobronchial tumor spread versus potential low-grade infectious or inflammatory disease, continued follow-up recommended in 3 months. I personally reviewed the images and the resident's findings and agree with the final report. [facility]-[id number] Procedure Note Hm Interface, Radiology Results Incoming - 11/07/2018 3:36 PM FOLDED TOWEL MACHINE OPERATOR EXAMINATION: CT CHEST WO CONTRAST CLINICAL HISTORY: C34.91 Malignant neoplasm of unspecified part of right bronchus or lung, C34.92 Malignant neoplasm of unspecified part of left bronchus or lung, lung ca TECHNIQUE: Axial images of the chest were obtained without intravenous contrast. The lack of intravenous contrast reduces the sensitivity of the exam and evaluating vasculature. CT imaging was performed with iterative reconstruction technique and/or automated exposure control to reduce radiation dose. COMPARISON: 07/26/2018, 03/06/2018 FINDINGS: Lungs and airways: Status post right upper lobectomy. Nodular density abutting the mediastinal pleura at the resection margin is decrease in size now measuring 1.1 x 5.5 cm compared to 1.3 x 0.8 cm on prior. Stable postoperative scarring and band like atelectasis in the remaining right lung. Stable 1.3 cm pneumatocele of the right lung abutting the major fissure. Mild increased herniation of the right lower lobe between the seventh and eighth right lateral ribs. Stable part solid pleural-based opacity in the left upper lobe (series 3 image 28) measuring approximately 13 mm and unchanged from baseline CT of 12/28/2017. Diffuse random groundglass nodularity noted throughout the lobes as before similar in distribution and potentially related to endobronchial tumor spread. Continued follow-up recommended. New area of postinflammatory scarring in the posterior subpleural left lower lobe (series 3 image 88) measuring up to 1.8 cm without central confluent nodule. Pleura: No pleural effusion or pneumothorax. Mediastinum and lymph nodes: No lymphadenopathy. Left hemithyroidectomy. Cardiovascular: Heart size is within normal limits. Trace pericardial effusion. Right IJ portacatheter with tip in the distal proximal right atrium. Upper abdomen: Status post cholecystectomy. Bones: No suspicious osseous lesions. Healed right rib fractures from prior thoracotomy. Mild degenerative changes of the thoracic spine. IMPRESSION: 1. Status post right upper lobectomy with interval decrease in size of nodular density abutting the mediastinal pleura at the resection margin as described above. 2. Stable 13 mm left upper lobe pulmonary nodule, unchanged from baseline. 3. Diffuse random groundglass nodularity of the lungs bilaterally may related to endobronchial tumor spread versus potential low-grade infectious or inflammatory disease, continued follow-up recommended in 3 months. I personally reviewed the images and the resident's findings and agree with the final report. [facility]-[id number] Performing Organization Address City/[facility]/Zipcode Phone Number [facility] [address] [place] [phone] Transfuse RBC (11/06/2018 3:44 PM FOLDED TOWEL MACHINE OPERATOR)Only the most recent of11 resultswithin the time period is included.Prepare RBC, 1 Units (11/06/2018 10:40 AM FOLDED TOWEL MACHINE OPERATOR)Only the most recent of5 resultswithin the time period is included. Product name Red Blood Cells -1, [facility] Unit number [id number] [facility] Product code [id number] [facility] Dispense status Transfused [facility] Blood expiration date [id number] [facility] Blood type code 5100 [facility] Blood type O POSITIVE [facility] Performing Organization Address [facility] Phone Number [facility] DEPARTMENT OF PATHOLOGY AND [address] [place] [address] Type and screen (11/06/2018 10:40 AM FOLDED TOWEL MACHINE OPERATOR)Only the most recent of6 resultswithin the time period is included. ABO grouping O [facility] Rh type POS [facility] Antibody screen (gel) NEG [facility] Specimen Blood Performing Organization Address [facility] Phone Number [facility] DEPARTMENT OF PATHOLOGY AND [address] [place] [address] Estimated GFR (11/06/2018 10:17 AM FOLDED TOWEL MACHINE OPERATOR)Only the most recent of13 resultswithin the time period is included. Estimated GFR 36 (A) mL/min/1.73 m2 [facility] Comment: OUTPATIENT CENTER CatergoryUnitsInterpretation G1 >=90 Normal or high G2 60-89Mildly decreased [id number] to moderately decreased [id number] to severely decreased G4 15-29Severely decreased G5 <15Kidney failure The eGFR was calculated using the Chronic Kidney Disease Epidemiology Collaboration (CKD-EPI) equation. Interpretation is based on recommendations of the National Kidney Foundation-Kidney Disease Outcomes Quality Initiative (NKF-KDOQI) published in 2014. Specimen Plasma specimen Performing Organization Address City/State/Zipcode Phone Number [facility] DEPARTMENT OF PATHOLOGY AND [address] [place] [address] Manual differential (11/06/2018 10:17 AM FOLDED TOWEL MACHINE OPERATOR)Only the most recent of5 resultswithin the time period is included. Manual differential PERFORMED [facility] Neutrophils 62.0 39.0 - 69.0 % [facility] Lymphocytes 26.0 25.0 - 45.0 % [facility] Monocytes 11.0 (H) 0.0 - 10.0 % [facility] Eosinophils 1.0 0.0 - 5.0 % [facility] Basophils 0.0 0.0 - 1.0 % [facility] Metamyelocytes 0 % [facility] Promyelocytes 0 % [facility] Platelet slide review Karlee adequate [facility] Polychromasia Moderate [facility] Tear drop cells Occasional [facility] Ovalocytes Moderate [facility] Enlarged platelets Moderate (A) [facility] Performing Organization Address City/[facility]/Zipcode Phone Number [facility] DEPARTMENT OF PATHOLOGY AND [address] [address] CBC with platelet and differential (11/06/2018 10:17 AM FOLDED TOWEL MACHINE OPERATOR)Only the most recent of18 resultswithin the time period is included. WBC 4.82 4.50 - 11.00 k/uL [facility] RBC 2.26 (L) 4.20 - 5.50 m/uL [facility] HGB 7.2 (L) 12.0 - 16.0 g/dL [facility] HCT 22.0 (L) 37.0 - 47.0 % [facility] MCV 97.3 82.0 - 100.0 fL [facility] MCH 31.9 27.0 - 34.0 pg [facility] MCHC 32.7 31.0 - 37.0 g/dL [facility] RDW - SD 51.5 37.0 - 55.0 fL [facility] MPV 10.6 8.8 - 13.2 fL [facility] Platelet count 207 150 - 400 k/uL [facility] Neutrophils 62.0 39.0 - 69.0 % [facility] Lymphocytes 26.0 25.0 - 45.0 % [facility] Monocytes 11.0 (H) 0.0 - 10.0 % [facility] Eosinophils 1.0 0.0 - 5.0 % [facility] Basophils 0.0 0.0 - 1.0 % [facility] Specimen Blood Performing Organization Address City/[facility] Phone Number [facility] DEPARTMENT OF PATHOLOGY AND [address] [place] [phone] Magnesium level (11/06/2018 10:17 AM FOLDED TOWEL MACHINE OPERATOR)Only the most recent of15 resultswithin the time period is included. Magnesium 1.8 1.6 - 2.6 mg/dL [facility] Specimen Plasma specimen Performing Organization Address City/[facility] Phone Number [facility] DEPARTMENT OF PATHOLOGY AND [address] [place] [phone] Comprehensive metabolic panel (11/06/2018 10:17 AM FOLDED TOWEL MACHINE OPERATOR)Only the most recent of11 resultswithin the time period is included. Sodium 137 135 - 148 mEq/L [facility] Potassium 4.2 3.5 - 5.0 mEq/L [facility] Chloride 100 98 - 112 mEq/L [facility] CO2 24 24 - 31 mEq/L [facility] Anion gap 13@ANIO 7 - 15 mEq/L [facility] BUN 23 (H) 6 - 20 mg/dL [facility] Creatinine 1.60 (H) 0.50 - 0.90 mg/dL [facility] Glucose 142 (H) 65 - 99 mg/dL [facility] Calcium 8.8 8.3 - 10.2 mg/dL [facility] Protein 7.3 6.3 - 8.3 g/dL [facility] Comment: OUTPATIENT CENTER 4.6-7.0 g/dL 1 week 4.4-7.6 g/dL 7 months-1year5.1-7.3 g/dL 1-2 years5.6-7.5 g/dL >3 years6.0-8.0 g/dL 18-150 6.3-8.3 g/dL Albumin 3.8 3.5 - 5.0 g/dL [facility] A/G ratio 1.1 0.7 - 3.8 [facility] Alkaline phosphatase 76 35 - 104 U/L [facility] AST 67 (H) 10 - 35 U/L [facility] ALT 94 (H) 5 - 50 U/L [facility] Total bilirubin 0.2 0.0 - 1.2 mg/dL [facility] Specimen Plasma specimen Performing Organization Address City/[facility] Phone Number [facility] DEPARTMENT OF PATHOLOGY AND [address] [place] [address] Thyroid stimulating hormone (10/16/2018 1:05 PM FOLDED TOWEL MACHINE OPERATOR) TSH 3.01 0.27 - 4.20 uIU/mL [facility] Specimen Plasma specimen Performing Organization Address City/[facility] Phone Number [facility] DEPARTMENT OF PATHOLOGY AND [address] [place] [phone] LDH (10/16/2018 1:05 PM FOLDED TOWEL MACHINE OPERATOR) LDH 275 (H) 87 - 225 U/L [facility] Specimen Plasma specimen Performing Organization Address City/[facility] Phone Number [facility] DEPARTMENT OF PATHOLOGY AND [address] [place], [place] [phone] [address] Creatinine level (10/16/2018 1:05 PM FOLDED TOWEL MACHINE OPERATOR) Creatinine 1.50 (H) 0.50 - 0.90 mg/dL [facility] Specimen Plasma specimen Performing Organization Address [facility] Phone Number [facility] DEPARTMENT OF PATHOLOGY AND [address] [place] [phone] [address] MRI Brain W Wo Contrast (10/12/2018 2:33 PM FOLDED TOWEL MACHINE OPERATOR)Only the most recent of2 resultswithin the time period is included. Narrative Performed At EXAMINATION: MRI BRAIN W WO CONTRAST [facility] CLINICAL HISTORY: C34.91 Malignant neoplasm of unspecified part of right bronchus or lung, C34.92 Malignant neoplasm of unspecified part of left bronchus or lung, cancer COMPARISON:None TECHNIQUE: Multiplanar and multisequence MRI imaging of the brain was obtained with and without contrast. FINDINGS: No evidence of acute intracranial hemorrhage, mass, mass effect, acute infarct or midline shift. Ventricles and sulci are normal in appearance for patient's age. No abnormal intracranial enhancement. No abnormal susceptibility. Basal cisterns are clear. Major intracranial flow voids are maintained. Left lens extraction. Mild scattered paranasal sinus mucosal thickening. Moderate mastoid fluid. Visualized paranasal sinuses and mastoid air cells are clear. IMPRESSION: 1. No acute intracranial abnormality. No evidence of metastatic disease. [id number] Procedure Note [facility], Radiology Results Incoming - 10/12/2018 3:55 PM FOLDED TOWEL MACHINE OPERATOR EXAMINATION: MRI BRAIN W WO CONTRAST CLINICAL HISTORY: C34.91 Malignant neoplasm of unspecified part of right bronchus or lung, C34.92 Malignant neoplasm of unspecified part of left bronchus or lung, cancer COMPARISON: None TECHNIQUE: Multiplanar and multisequence MRI imaging of the brain was obtained with and without contrast. FINDINGS: No evidence of acute intracranial hemorrhage, mass, mass effect, acute infarct or midline shift. Ventricles and sulci are normal in appearance for patient's age. No abnormal intracranial enhancement. No abnormal susceptibility. Basal cisterns are clear. Major intracranial flow voids are maintained. Left lens extraction. Mild scattered paranasal sinus mucosal thickening. Moderate mastoid fluid. Visualized paranasal sinuses and mastoid air cells are clear. IMPRESSION: 1. No acute intracranial abnormality. No evidence of metastatic disease. [id number] Performing Organization Address City/State/Zipcode Phone Number [facility] [address] [place] [address] PET/CT Skull Base To Mid Thigh (09/29/2018 11:04 AM FOLDED TOWEL MACHINE OPERATOR)Only the most recent of2 resultswithin the time period is included. 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 1 hour later, PET/CT scanning from the orbits to the mid thighs was performed. CT scanning was nondiagnostic and used for attenuation correction purposes and to aid in localization of any abnormal findings on the PET images. Automated dose exposure control was utilized. Blood glucose=96. FINDINGS: Head and Neck There is no suspicious lymph node uptake and no evidence of malignancy in the visualized brain. Chest Status post right upper lobectomy with nodular thickening at the medial aspect of the major fissure, without uptake, similar to previous CT. 8 mm left upper lobe pulmonary nodule near the hilum demonstrates absent to faint uptake, new from previous PET and previous chest CT. Small subpleural nodule in the posterolateral left apex with indistinct margins is difficult to measure accurately on the nondiagnostic CT images, but is roughly 1.3 cm and unchanged. However, this demonstrates new, very mild uptake (SUV=1.8). Mediastinal, hilar, and axillary uptake are normal. Prominent skeletal muscle uptake adjacent to the left shoulder is physiological. Abdomen Uptake in the liver, spleen, adrenal glands, pancreas, kidneys, and stomach is normal. There is no suspicious retroperitoneal or mesenteric lymph node uptake. Pelvis There is no suspicious pelvic or inguinal lymph node uptake. Osseous Structures There is no suspicious osseous uptake. IMPRESSION: 1.Interval resection of right upper lobe neoplasm with no FDG-avid disease in the surgical area. Focal nodularity of the medial aspect of the right major fissure is stable from recent CT and without uptake. Continued follow-up is recommended. 2.Left apical subpleural nodule is stable on CT, but demonstrates new, very mild uptake. Malignancy is not excluded, despite CT stability dating back to at least 12/28/2017. 3.8 mm left perihilar pulmonary nodule is new from all prior imaging. Uptake is absent to faint, but this is too small to assess accurately with PET. Malignancy is not excluded. 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 1 hour later, PET/CT scanning from the orbits to the mid thighs was performed. CT scanning was nondiagnostic and used for attenuation correction purposes and to aid in localization of any abnormal findings on the PET images. Automated dose exposure control was utilized. Blood glucose=96. FINDINGS: Head and Neck There is no suspicious lymph node uptake and no evidence of malignancy in the visualized brain. Chest Status post right upper lobectomy with nodular thickening at the medial aspect of the major fissure, without uptake, similar to previous CT. 8 mm left upper lobe pulmonary nodule near the hilum demonstrates absent to faint uptake, new from previous PET and previous chest CT. Small subpleural nodule in the posterolateral left apex with indistinct margins is difficult to measure accurately on the nondiagnostic CT images, but is roughly 1.3 cm and unchanged. However, this demonstrates new, very mild uptake (SUV=1.8). Mediastinal, hilar, and axillary uptake are normal. Prominent skeletal muscle uptake adjacent to the left shoulder is physiological. Abdomen Uptake in the liver, spleen, adrenal glands, pancreas, kidneys, and stomach is normal. There is no suspicious retroperitoneal or mesenteric lymph node uptake. Pelvis There is no suspicious pelvic or inguinal lymph node uptake. Osseous Structures There is no suspicious osseous uptake. IMPRESSION: 1. Interval resection of right upper lobe neoplasm with no FDG-avid disease in the surgical area. Focal nodularity of the medial aspect of the right major fissure is stable from recent CT and without uptake. Continued follow-up is recommended. 2. Left apical subpleural nodule is stable on CT, but demonstrates new, very mild uptake. Malignancy is not excluded, despite CT stability dating back to at least 12/28/2017. 3. 8 mm left perihilar pulmonary nodule is new from all prior imaging. Uptake is absent to faint, but this is too small to assess accurately with PET. Malignancy is not excluded. [facility]-[id number] [facility] Organization Address City/State/Zipcode Phone Number [facility] [address] [place] [phone] POC glucose (09/29/2018 9:54 AM FOLDED TOWEL MACHINE OPERATOR)Only the most recent of22 resultswithin the time period is included. POC glucose 96 65 - 99 mg/dL [facility] Comment: No Action Needed Meter ID: [id number] Legal Support Analyst: Riccardo Velazco Performing Organization Address City/[facility]/Zipcode Phone Number [facility] DEPARTMENT OF PATHOLOGY AND [address] [place] [phone] Antibody screen (gel) (09/27/2018 10:10 AM FOLDED TOWEL MACHINE OPERATOR) Antibody screen (gel) NEG [facility] Performing Organization Address City/[facility] Phone Number [facility] DEPARTMENT OF PATHOLOGY AND [address] [place] [phone] Antibody identification (09/27/2018 10:10 AM FOLDED TOWEL MACHINE OPERATOR) Antibody ID NEG [facility] Performing Organization Address City/[facility] Phone Number [facility] DEPARTMENT OF PATHOLOGY AND [address] [place] [phone] Smear review (09/11/2018 7:59 AM FOLDED TOWEL MACHINE OPERATOR) Platelet slide review Karlee adequate [facility] Anisocytosis Moderate [facility] Polychromasia Moderate [facility] Tear drop cells Occasional [facility] Performing Organization Address City/[facility] Phone Number [facility] DEPARTMENT OF PATHOLOGY AND [address] [place] [address] [address] [place] [address] CT Chest W Contrast Abdomen W Contrast Pelvis W Contrast (07/26/2018 10:04 AM FOLDED TOWEL MACHINE OPERATOR)Only the most recent of2 resultswithin the time period is included. Narrative Performed At EXAMINATION:CT CHEST W CONTRAST ABDOMEN W CONTRAST PELVIS W CONTRAST [facility] CLINICAL HISTORY:C34.91 Malignant neoplasm of unspecified part [...] and correlation with any recent intervention advised. [facility]-[id number] Procedure Note [facility], Radiology Results Incoming - 07/26/2018 10:39 AM FOLDED TOWEL MACHINE OPERATOR EXAMINATION: CT CHEST W CONTRAST ABDOMEN [...] and correlation with any recent intervention advised. [facility]-[id number] Performing Organization Address City/[facility]/Zipcode Phone Number [address] [address] POC creatinine (07/26/2018 9:14 AM FOLDED TOWEL MACHINE OPERATOR) POC creatinine 1.0 (H) 0.5 - 0.9 mg/dl [facility] Comment: Meter ID: [id number] Legal Support Analyst: Ledy Evans Specimen Blood Performing Organization Address City/State/Zipcode Phone Number [facility] DEPARTMENT OF PATHOLOGY AND [address] [place] [phone] [facility] [address] [address] IR Port Placement (06/12/2018 12:54 PM CDT) [...] and the performing provider. Duration of intraservice [id number] anesthesia/sedation: N/A Access: Local anesthesia was administered. The right internal jugular vein was evaluated with preprocedure ultrasound and noted to be patent. Real-time ultrasound was used to visualize needle entry into the vessel and a permanent image was stored. A 0.035 inch J-wire was advanced into the inferior vena cava and an image was archived. Access technique: 5 Fijian micropuncture set Venography: Vein catheterized: N/A Indication [...] position of the catheter tip. Port placed: [employer] Smart Port Catheter size: 8 Fijian Catheter flush: Heparin (100 units/mL) Closure: The [...] Estimated blood loss: Less than 10 cc [facility]-[id number] Procedure Note [facility], Radiology Results Incoming - 06/12/2018 5:31 PM [...] and the performing provider. Duration of intraservice gumb-uc-vwik anesthesia/sedation: N/A Access: Local anesthesia was administered. The right internal jugular vein was evaluated with preprocedure ultrasound and noted to be patent. Real-time ultrasound was used to visualize needle entry into the vessel and a permanent image was stored. A 0.035 inch J-wire was advanced into the inferior vena cava and an image was archived. Access technique: 5 Fijian micropuncture set Venography: Vein catheterized: N/A Indication [...] position of the catheter tip. Port placed: [employer] Smart Port Catheter size: 8 Fijian Catheter flush: Heparin (100 units/mL) Closure: The [...] Estimated blood loss: Less than 10 cc [facility]-[id number] Performing Organization Address [facility] Phone Number [facility] [address] [place] [address] OR [place] < 1 Hour (06/09/2018 8:35 AM CDT) Narrative Performed At IMPRESSION: C-arm fluoroscopy under one hour was provided in the OR for [facility] the referring physician. A radiologist was not present during the procedure. Refer to the Operative report issued by the performing provider for procedure details. LOCATION: [facility] OR # 10 PROCEDURE: Pain pump START: 0820am END:0835am FLUORO TIME: 16secs DOSE (mGy) : 10.67 TECH: Fareed Ng [id number] Procedure Note [facility], Radiology Results Incoming - 06/09/2018 12:15 PM [...] TECH: Fareed Ng [id number] Performing Organization Address [facility] Phone Number [facility] [address] [place] [address] Basic metabolic panel (06/09/2018 6:30 AM CDT)Only the most recent of7 resultswithin the time period is included. Sodium 138 135 - 148 mEq/L [facility] DEPARTMENT OF PATHOLOGY AND GENOMIC MEDICINE Potassium 4.1 3.5 - 5.0 mEq/L [facility] DEPARTMENT OF PATHOLOGY AND GENOMIC MEDICINE Chloride 99 98 - 112 mEq/L [facility] DEPARTMENT OF PATHOLOGY AND GENOMIC MEDICINE CO2 25 24 - 31 mEq/L [facility] DEPARTMENT OF PATHOLOGY AND GENOMIC MEDICINE Anion gap 14@ANIO 7 - 15 mEq/L [facility] DEPARTMENT OF PATHOLOGY AND GENOMIC MEDICINE BUN 29 (H) 6 - 20 mg/dL [facility] DEPARTMENT OF PATHOLOGY AND GENOMIC MEDICINE Creatinine 0.97 (H) 0.50 - 0.90 mg/dL [facility] DEPARTMENT OF PATHOLOGY AND GENOMIC MEDICINE Glucose 125 (H) 65 - 99 mg/dL [facility] DEPARTMENT OF PATHOLOGY AND GENOMIC MEDICINE Calcium 9.8 8.3 - 10.2 mg/dL [facility] DEPARTMENT OF PATHOLOGY AND GENOMIC MEDICINE Specimen Plasma specimen Performing Organization Address City/[facility] Phone Number [facility] DEPARTMENT OF PATHOLOGY AND [address] [place] [address] Prothrombin time with INR (05/23/2018 2:21 PM CDT)Only the most recent of2 resultswithin the time period is included. Prothrombin time 12.8 12.0 - 15.0 sec [facility] DEPARTMENT OF PATHOLOGY AND GENOMIC MEDICINE INR 1.0 [facility] DEPARTMENT OF Comment: PATHOLOGY AND [employer] The International Normalized Ratio (INR) is a therapeutic MEDICINE monitoring tool for patients who are stable on oral anticoagulant therapy. An INR of 2.0-3.0 is suggested for deep vein thrombosis/pulmonary embolism. Specimen Blood Performing Organization Address City/[facility] Phone Number [facility] DEPARTMENT OF [facility] AND [address] [place] [address] XR Chest 1 Vw Portable (04/27/2018 8:32 AM CDT)Only the most recent of6 resultswithin the time period is included. Narrative Performed At EXAMINATION:XR CHEST 1 VW PORTABLE [facility] CLINICAL HISTORY:volume overload COMPARISON:April 25, 2018 FINDINGS: [...] basilar atelectasis. 3. No pneumothorax is identified [id number] Procedure Note Hm Interface, Radiology Results Incoming - 04/27/2018 8:39 [...] basilar atelectasis. 3. No pneumothorax is identified [id number] Performing Organization Address City/[facility]/Zipcode Phone Number [facility] [address] [place] [address] Estimated GFR (04/27/2018 4:00 AM CDT)Only the most recent of7 resultswithin the time period is included. GFR Non Af Amer 65 mL/min/1.73 m2 [facility] DEPARTMENT OF PATHOLOGY AND GENOMIC MEDICINE GFR Af Amer 79 mL/min/1.73 m2 [facility] DEPARTMENT OF Comment: PATHOLOGY AND GENOMIC [...] specimen Performing Organization Address City/State/Zipcode Phone Number [facility] DEPARTMENT OF PATHOLOGY AND [address] [place] [address] [employer] MEDICINE Sputum culture (04/26/2018 12:40 PM CDT) Sputum culture isolate Normal oral mic and (A) [facility] DEPARTMENT OF Comment: PATHOLOGY AND GENOMIC Specimen Information MEDICINE Specimen Source: Sputum Specimen Site: Expectorated Sputum culture isolate Serratia marcescens [facility] DEPARTMENT OF Occasional PATHOLOGY AND GENOMIC The performance characteristics of this assay on this isolate MEDICINE were validated by the Microbiology Laboratory at [facility].This source has not been approved by [...] CRUZ <=0.5/9.5 mcg/mL: Susceptible Performing Organization Address City/State/Zipcode Phone Number [facility] DEPARTMENT OF PATHOLOGY AND [address] [place] [phone] GENOMIC MEDICINE Gram stain (04/26/2018 12:40 PM CDT) Gram stain isolate Few WBC's [facility] DEPARTMENT OF PATHOLOGY Few Gram positive rods AND GENOMIC MEDICINE Few Gram positive cocci in pairs Few Gram positive cocci in clusters Comment: Specimen Information Specimen Source: Sputum Specimen Site: Expectorated Specimen Sputum - Expectorated Performing Organization Address [facility] Phone Number [facility] DEPARTMENT OF PATHOLOGY AND [address] [place] [address] MEDICINE Phosphorus level (04/26/2018 5:43 AM CDT)Only the most recent of5 resultswithin the time period is included. Phosphorus 3.0 2.4 - 4.5 mg/dL [facility] DEPARTMENT OF PATHOLOGY AND GENOMIC MEDICINE Specimen Plasma specimen Performing Organization Address [facility] Phone Number [facility] DEPARTMENT OF PATHOLOGY AND [address] [place] [address] MEDICINE ECG 12 lead (04/25/2018 9:59 PM CDT)Only the most recent of2 resultswithin the time period is included. Ventricular rate 113 [facility] MUSE Atrial rate 113 [facility] MUSE MI interval 140 [facility]USE QRSD interval 86 [facility] QT interval 326 [facility] QTC interval 447 [facility] MUSE P axis 1 35 [facility] MUSE QRS axis 1 40 [facility] MUSE T wave axis 19 [facility] MUSE EKG impression Sinus tachycardia-Otherwise normal ECG-In [facility] MUSE automated comparison with ECG of 21-APR-2018 06:06,-ST now depressed in Anterior leads- Performing Organization Address [facility] Phone Number [facility] MUSE [address] [place] [address] Respiratory pathogen panel (04/25/2018 6:13 PM CDT) Respiratory pathogen Negative for all pathogens tested: [facility] DEPARTMENT OF panel Negative for Adenovirus [...] Specimen Nares - Left Performing Organization Address City/State/Zipcode Phone Number [facility] DEPARTMENT OF PATHOLOGY AND [address] [place] [address] [employer] [facility] Urinalysis screen and microscopy, with reflex to culture (04/23/2018 6:20 AM CDT) Specimen site Clean catch [facility] DEPARTMENT OF PATHOLOGY AND GENOMIC MEDICINE Color, UA Yellow [facility] DEPARTMENT OF PATHOLOGY AND GENOMIC MEDICINE Appearance, UA Clear [facility] DEPARTMENT OF PATHOLOGY AND GENOMIC MEDICINE Specific gravity, UA 1.020 1.001 - 1.035 [facility] DEPARTMENT OF PATHOLOGY AND GENOMIC MEDICINE pH, UA 5.0 5.0 - 8.5 [facility] DEPARTMENT OF PATHOLOGY AND GENOMIC MEDICINE Protein, UA 1+ (A) Negative [facility] DEPARTMENT OF PATHOLOGY AND GENOMIC MEDICINE Glucose, UA Negative Negative [facility] DEPARTMENT OF PATHOLOGY AND GENOMIC MEDICINE Ketones, UA Negative Negative [facility] DEPARTMENT OF PATHOLOGY AND GENOMIC MEDICINE Bilirubin, UA Negative Negative [facility] DEPARTMENT OF PATHOLOGY AND GENOMIC MEDICINE Blood, UA Moderate (A) Negative [facility] DEPARTMENT OF PATHOLOGY AND GENOMIC MEDICINE Nitrite, UA Negative Negative [facility] DEPARTMENT OF PATHOLOGY AND GENOMIC MEDICINE Urobilinogen, UA <2.0 <2.0 [facility] DEPARTMENT OF PATHOLOGY AND GENOMIC MEDICINE Leukocyte esterase, UA Negative Negative [facility] DEPARTMENT OF PATHOLOGY AND GENOMIC MEDICINE Epithelial cells, UA 10 /HPF [facility] DEPARTMENT OF PATHOLOGY AND GENOMIC MEDICINE WBC, UA 1 0 - 4 /HPF [facility] DEPARTMENT OF PATHOLOGY AND GENOMIC MEDICINE RBC, UA 2 0 - 5 /HPF [facility] DEPARTMENT OF PATHOLOGY AND GENOMIC MEDICINE Bacteria, UA None seen None seen [facility] DEPARTMENT OF PATHOLOGY AND GENOMIC MEDICINE Yeast, UA Few (A) [facility] DEPARTMENT OF PATHOLOGY AND GENOMIC MEDICINE Yeast with pseudohyphae, UA None seen [facility] DEPARTMENT OF PATHOLOGY AND GENOMIC MEDICINE Hyaline casts, UA 1 /LPF [facility] DEPARTMENT OF PATHOLOGY AND GENOMIC MEDICINE Specimen Urine Performing Organization Address City/[facility] Phone Number [facility] DEPARTMENT OF PATHOLOGY AND [address] [place] [address] GENOMIC MEDICINE Urine culture (04/23/2018 6:20 AM CDT) Urine culture SEE COMMENTComment: Bacteriuria [facility] DEPARTMENT OF PATHOLOGY screen negative. AND GENOMIC MEDICINE Performing Organization Address City/[facility] Centercode Phone Number [facility] DEPARTMENT OF PATHOLOGY AND [address] [place] [address] GENOMIC MEDICINE Blood culture, aerobic & anaerobic (04/23/2018 2:18 AM CDT)Only the most recent of2 resultswithin the time period is included. Blood culture isolate No growth after 5 days of incubation. [facility] DEPARTMENT OF Comment: PATHOLOGY AND GENOMIC Specimen Information MEDICINE Specimen Source: Blood Specimen Site: Arm Specimen Blood - Arm Performing Organization Address [facility] Phone Number [facility] DEPARTMENT OF PATHOLOGY AND [address] [place] [address] GENOMIC MEDICINE Surgical pathology request (04/21/2018 11:43 AM CDT)Only the most recent of10 resultswithin the time period is included. [facility] DEPARTMENT OF PATHOLOGY AND GENOMIC MEDICINE Surgical pathology See link below for PDF Lab [facility] DEPARTMENT OF report Report PATHOLOGY AND GENOMIC MEDICINE Result status This is Supplemental Report [facility] DEPARTMENT OF for [id number] PATHOLOGY AND GENOMIC MEDICINE Narrative Performed At [id number] [facility] DEPARTMENT OF PATHOLOGY AND GENOMIC NEOGENOMICS LAB MET FISH MEDICINE DOS 04/21/2018 Performing Organization Address [facility] Phone Number [facility] DEPARTMENT OF PATHOLOGY AND [address] [place], [place] [phone] GENOMIC MEDICINE Sodium level, syringe (04/21/2018 11:25 AM CDT)Only the most recent of3 resultswithin the time period is included. Sodium, syringe 138 135 - 148 mEq/L [facility] DEPARTMENT OF PATHOLOGY AND GENOMIC MEDICINE Specimen Blood Performing Organization Address City/[facility]/Zipcode Phone Number [facility] DEPARTMENT OF PATHOLOGY AND [address] [place] [address] GENOMIC MEDICINE Potassium, syringe (04/21/2018 11:25 AM CDT)Only the most recent of3 resultswithin the time period is included. Potassium, syringe 3.6 3.5 - 5.0 mEq/L [facility] DEPARTMENT OF PATHOLOGY AND GENOMIC MEDICINE Specimen Blood Performing Organization Address [facility] Phone Number [facility] DEPARTMENT OF PATHOLOGY AND [address] [place] [address] Ionized calcium, arterial (04/21/2018 11:25 AM CDT)Only the most recent of3 resultswithin the time period is included. Ionized calcium, arterial 1.08 (L) 1.11 - 1.32 mmol/L [facility] DEPARTMENT OF PATHOLOGY AND GENOMIC MEDICINE Specimen Blood Performing Organization Address [facility]ercode Phone Number [facility] DEPARTMENT OF PATHOLOGY AND [address] [place] [address] Hemoglobin, syringe (04/21/2018 11:25 AM CDT)Only the most recent of3 resultswithin the time period is included. Hemoglobin, syringe 10.4 (L) 12.0 - 16.0 g/dL [facility] DEPARTMENT OF PATHOLOGY AND GENOMIC MEDICINE Specimen Blood Performing Organization Address [facility] Phone Number [facility] DEPARTMENT OF PATHOLOGY AND [address] [place] [address] Glucose level, syringe (04/21/2018 11:25 AM CDT)Only the most recent of3 resultswithin the time period is included. Glucose, syringe 162 (H) 65 - 99 mg/dL [facility] DEPARTMENT OF PATHOLOGY AND GENOMIC MEDICINE Specimen Blood Performing Organization Address [facility] Phone Number [facility] DEPARTMENT OF PATHOLOGY AND [address] [place] [address] Arterial blood gas (04/21/2018 11:25 AM CDT)Only the most recent of2 resultswithin the time period is included. pH, arterial 7.37 7.35 - 7.45 [facility] DEPARTMENT OF PATHOLOGY AND GENOMIC MEDICINE pCO2, arterial 46 (H) 35 - 45 mmHg [facility] DEPARTMENT OF PATHOLOGY AND GENOMIC MEDICINE pO2, arterial 122 (H) 80 - 90 mmHg [facility] DEPARTMENT OF PATHOLOGY AND GENOMIC MEDICINE Bicarbonate, arterial 25.9 21.0 - 28.0 mmol/L [facility] DEPARTMENT OF PATHOLOGY AND GENOMIC MEDICINE Base excess, arterial 1 -2 - 2 mEq/L [facility] DEPARTMENT OF PATHOLOGY AND GENOMIC MEDICINE O2 saturation, arterial 99 95 - 100 % [facility] DEPARTMENT OF PATHOLOGY AND GENOMIC MEDICINE Specimen Blood Performing Organization Address City/State/Zipcode Phone Number [facility] DEPARTMENT OF PATHOLOGY AND [address] [place] [address] GENOMIC MEDICINE Miscellaneous referral test (04/21/2018 11:04 AM CDT)Only the most recent of2 resultswithin the time period is included. [facility] test name [email or web address] MET FISH [facility] test result SEE NOTE [facility] Comment: MET FISH Sample type: Paraffin, lung Case# [id number] RESULTS: NEGATIVE Interpretation: MET(7q31) signals per nucleus: [...] assay was scored manually by a certified extractions technologist. Two or more independent areas containing invasive tumor were analyzed and the technical results underwent further review for quality control assistant purposes. Reference range: Positive: MET(7q31) to CEN7 signal ration is >/=2.0 or when 10% of tumor cells contain clusters of >15 copies per cell of MET (7q31) signals. Negative: MET(7q31) to CEN7 signal ratio is <2.0 Equivocal: MET copy number >/=5.0 and MET/CEN7 ratio <2.0 Probe set details: MET: nuc kiarra(CEN7x1.9,METx2.0)[50] Nuclei scored: 50 Test(s) performed by: Balluun 5 ANY Grady Narrative Performed At [id number] [email or web address] LAB MET FISH DOS 04/21/2018 Performing Organization Address City/State/Zipcode Phone Number [facility] [address] [place] [address] Arterial blood gas, corrected (04/21/2018 7:56 AM CDT) pH, arterial 7.30 (L) 7.35 - 7.45 [facility] DEPARTMENT OF PATHOLOGY AND GENOMIC MEDICINE pCO2, arterial 59 (H) 35 - 45 mmHg [facility] DEPARTMENT OF PATHOLOGY AND GENOMIC MEDICINE pO2, arterial 182 (H) 80 - 90 mmHg [facility] DEPARTMENT OF PATHOLOGY AND GENOMIC MEDICINE Temperature, Celsius 36.0 Degrees C [facility] DEPARTMENT OF PATHOLOGY AND GENOMIC MEDICINE O2 saturation, arterial 100 95 - 100 % [facility] DEPARTMENT OF PATHOLOGY AND GENOMIC MEDICINE pH, arterial corrected 7.32 [facility] DEPARTMENT OF PATHOLOGY AND GENOMIC MEDICINE pCO2, arterial corrected 56 mmHg [facility] DEPARTMENT OF PATHOLOGY AND GENOMIC MEDICINE pO2, arterial corrected 178 mmHg [facility] DEPARTMENT OF PATHOLOGY AND GENOMIC MEDICINE Base excess, arterial 2 -2 - 2 mEq/L [facility] DEPARTMENT OF PATHOLOGY AND GENOMIC MEDICINE Specimen Blood Performing Organization Address City/[facility] Phone Number [facility] DEPARTMENT OF PATHOLOGY AND [address] [place] [address] [facility] Partial thromboplastin time, activated (04/11/2018 11:04 AM CDT) PTT 29.2 23.0 - 36.0 sec [facility] DEPARTMENT OF PATHOLOGY Comment: AND [facility] PTT therapeutic range for unfractionated heparin is 61.0-112.0 seconds which corresponds to Anti-Xa 0.3-0.7 U/ml. Specimen Blood Performing Organization Address City/[facility] Phone Number [facility] DEPARTMENT OF PATHOLOGY AND [address] [place] [address] [facility] [employer] XR Chest 1 Vw (04/06/2018 11:48 AM [...] have probably not changed in the interval. [id number] Procedure Note Interface, Radiology Results Incoming - [...] have probably not changed in the interval. [id number] Performing Organization Address City/State/Zipcode Phone Number [facility] [address] [place] [address] CT Needle Biopsy No Contrast (04/06/2018 10:13 AM CDT)Only the most recent of2 resultswithin the time period is included. Narrative Performed At EXAMINATION:CT NEEDLE BIOPSY NO CONTRAST [facility] CLINICAL HISTORY:R91.8 Other nonspecific abnormal finding of [...] remained isn't metastatic during the observation period. [facility]-[id number] Procedure Note Interface, Radiology Results Incoming - 04/06/2018 3:11 [...] remained isn't metastatic during the observation period. [facility]-[id number] Performing Organization Address City/State/[facility] Phone Number [facility] [address] [place] [address] Cytology (non-gynecological) request (04/06/2018 9:35 AM CDT)Only the most recent of2 resultswithin the time period is included. [facility] DEPARTMENT OF PATHOLOGY AND GENOMIC MEDICINE Cytology See link below for PDF [facility] DEPARTMENT OF (non-gynecological) report Lab Report PATHOLOGY AND GENOMIC MEDICINE Result status This is Final Report to [facility] DEPARTMENT OF [id number] PATHOLOGY AND GENOMIC MEDICINE Performing Organization Address City/State/Zipcode Phone Number [facility] DEPARTMENT OF PATHOLOGY AND [address] [place] [address] GENOMIC MEDICINE Pulmonary function tests, complete (02/08/2018) Narrative Performed At PET/CT Whole Body External Study (01/12/2018 10:59 AM CDT) Narrative Performed At This exam was not acquired at a [employer] facility and has not been [facility] interpreted by a [employer] Provider.The exam was imported into our imaging system for comparisons purposes. Performing Organization Address City/State/Zipcode Phone Number [facility] [address] [place] [address] PET/CT Skull Base Mid Thigh External Study (01/12/2018) Narrative Performed At CT Chest External Study (12/28/2017 4:32 PM CDT) Narrative Performed At This exam was not acquired at a [employer] facility and has not been [facility] interpreted by a [employer] Provider.The exam was imported into our imaging system for comparisons purposes. Performing Organization Address City/State/Zipcode Phone Number [facility] [address] [place] [address] after 11/25/2017 Insurance Payer Benefit Plan / Group Subscriber ID Type Phone Address MEDICARE MEDICARE PART A AND B xxxxxxxxxxx Medicare [place], [place] ([place]) [place] [address] Advance Directives Patient has advance care planning documents on file. For more information, please contact:Chinedu Coronado[address] [place] [address]
[2018-11-26 19:10] LABS: Absolute Lymphocytes (CBC) 0.8 K/uL (0.7-4.9); Absolute Monocytes 0.1 K/uL (0.1-1.3); Basophils % 0.2 % (0-1.3); Eosinophils % 2.6 % (0-4.4); Hematocrit 21.6 % (36.0-45.0); Lymphocytes % 28.1 % (15.3-44.8); MPV 10.4 fL (7.6-11.3); Monocytes % 2.9 % (3.3-12.3); RBC Red Blood Cell Count 2.42 M/uL (3.86-4.86)
[2018-11-26 19:21] LABS: Protime INR 1.14
[2018-11-26] MEDS ORDERED: NA CHLORIDE 0.9% 250 ML ONE (19:30)
[2018-11-26] MEDS ORDERED: NA CHLORIDE 0.9% 3,000 ML ONE (19:31)
[2018-11-26 19:33] LABS: ALT/SGPT 48 U/L (12-78); AST/SGOT 33 U/L (15-37); Albumin 2.4 g/dL (3.4-5.0); Alkaline Phosphatase 97 U/L (45-117); BUN Blood Urea Nitrogen 36 mg/dL (7-18); Bicarbonate 20 mmol/L (21-32); Bilirubin Direct < 0.1 mg/dL (0-0.2); Bilirubin Total 0.1 mg/dL (0.2-1.0); CKMB Creatine Kinase MB < 1.0 ng/mL (0.3-3.6); Creatine Phosphokinase 45 U/L (26-192); Glucose Level 118 mg/dL (74-106); Lipase 170 U/L (73-393); Potassium 3.7 mmol/L (3.5-5.1); Protein, Total 7.1 g/dL (6.4-8.2); Sodium Level 138 mmol/L (136-145); Troponin (Emerg Dept Use Only) < 0.02 ng/mL (0.0-0.045)
--- NOTE | 2018-11-26 19:37 | RAD REPORT ---
EXAM DESCRIPTION: RAD - Chest Single View - 11/26/2018 7:17 pm CLINICAL HISTORY: Dyspnea;Fever Chest pain. COMPARISON: Chest Single View dated 08/24/2018; Chest Pa And Lat (2 Views) dated 12/14/2017; Chest Si ngle View dated 07/01/2016; CHEST PA AND LAT 2 VIEW dated 11/20/2010 FINDINGS: Portable technique limits examination quality. The lungs are grossly clear. The heart is normal in size. No displaced fractures.Right port catheter tip in the SVC. IMPRESSION: No acute intrathoracic process suspected.
[2018-11-26] MEDS ORDERED: ONDANSETRON 4 MG/2 ML VIAL ONE (20:06)
[2018-11-26] MEDS ORDERED: ACETAMINOPHEN 500 MG TAB ONE (20:06)
--- NOTE | 2018-11-26 20:55 | EDPHYS ---
Physician Documentation [facility] Name: Anisha Lindsay Age: 53 yrs Sex: Female : 1965 Arrival Date: 11/26/2018 Time: 18:32 Bed 19 Private MD: ED Physician Андрей Velasco HPI: 11/26 20:00 This 53 yrs old Female presents to ER via EMS with complaints of Shortness Of jr8 Breath. 20:00 The patient has shortness of breath at rest. Onset: The symptoms/episode began/occurred jr8 gradually, 1 week(s) ago. Duration: The symptoms are continuous, and are steadily getting worse. The patient's shortness of breath is aggravated by walking. Associated signs and symptoms: The patient has no apparent associated signs or symptoms. Severity of symptoms: At their worst the symptoms were moderate in the emergency department the symptoms are unchanged. The patient has not experienced similar symptoms in the past. The patient has not recently seen a physician. Patient currently on chemotherapy for lung cancer. Has been struggling with anemia secondary to the chemotherapy. Usually has no shortness of breath or CAMPOS. . Historical: - Allergies: 18:44 Celebrex; tw2 18:44 Demerol; tw2 - Home Meds: 19:15 Albuterol Inhl [Active]; Colestid Oral [Active]; Folic Acid Oral [Active]; gabapentin cc3 Oral [Active]; levothyroxine 50 mcg tab [Active]; Metoprolol Tartrate Oral [Active]; Ofloxacin Otic [Active]; Protonix Oral [Active]; sertraline Oral [Active]; tizanidine Oral [Active]; - PMHx: 18:44 CHF; Stage 4 Lung Cencer- currently on Chemo; Rheumatoid Arthritis; Myocardial tw2 infarction; Hypertension; Hypothyroidism; - Immunization history:: Adult Immunizations. - Social history:: Smoking status: . - Ebola Screening: : Patient denies travel to an Ebola-affected area in the 21 days before illness onset. ROS: 20:00 Eyes: Negative for injury, pain, redness, and discharge, ENT: Negative for injury, jr8 pain, and discharge, Neck: Negative for injury, pain, and swelling, Cardiovascular: Negative for chest pain, palpitations, and edema, Abdomen/GI: Negative for abdominal pain, nausea, vomiting, diarrhea, and constipation, Back: Negative for injury and pain, MS/Extremity: Negative for injury and deformity, Skin: Negative for injury, rash, and discoloration, Neuro: Negative for headache, weakness, numbness, tingling, and seizure. 20:00 Respiratory: Positive for dyspnea on exertion, shortness of breath. Exam: 20:00 Eyes: Pupils equal round and reactive to light, extra-ocular motions intact. Lids and jr8 lashes normal. Conjunctiva and sclera are non-icteric and not injected. Cornea within normal limits. Periorbital areas with no swelling, redness, or edema. ENT: Nares patent. No nasal discharge, no septal abnormalities noted. Tympanic membranes are normal and external auditory canals are clear. Oropharynx with no redness, swelling, or masses, exudates, or evidence of obstruction, uvula midline. Mucous membranes moist. Neck: Trachea midline, no thyromegaly or masses palpated, and no cervical lymphadenopathy. Supple, full range of motion without nuchal rigidity, or vertebral point tenderness. No Meningismus. Abdomen/GI: Soft, non-tender, with normal bowel sounds. No distension or tympany. No guarding or rebound. No evidence of tenderness throughout. Back: No spinal tenderness. No costovertebral tenderness. Full range of motion. Skin: Warm, dry with normal turgor. Normal color with no rashes, no lesions, and no evidence of cellulitis. MS/ Extremity: Pulses equal, no cyanosis. Neurovascular intact. Full, normal range of motion. Neuro: Awake and alert, GCS 15, oriented to person, place, time, and situation. Cranial nerves II-XII grossly intact. Motor strength 5/5 in all extremities. Sensory grossly intact. Cerebellar exam normal. Normal gait. 20:00 Cardiovascular: Rate: tachycardic, Rhythm: regular, Pulses: Pulses are 2+ in right radial artery and left radial artery. Heart sounds: normal, normal S1and S2, no S3 or S4, no murmur, no rub, no gallop, Edema: is not appreciated. 20:00 Respiratory: the patient does not display signs of respiratory distress, Respirations: tachypnea, that is mild, Breath sounds: are clear throughout, no bronchial sounds, no decreased breath sounds, no rales, rhonchi, no stridor, no wheezing. Vital Signs: 18:35 BP 124 / 84; Pulse 125; Resp 22; Temp 99.5(O); Pulse Ox 90% on R/A; tw2 19:11 Weight 106.59 kg (R); tw2 19:30 BP 118 / 73; Pulse 113; Resp 13 S; Temp 98.6(O); Pulse Ox 99% on 2 lpm NC; cc3 20:30 BP 127 / 72; Pulse 94; Resp 14 S; Pulse Ox 100% on 2 lpm NC; cc3 21:40 BP 113 / 71; Pulse 89; Resp 12 S; Pulse Ox 99% on 2 lpm NC; cc3 22:30 BP 113 / 71; Pulse 92; Resp 13 S; Pulse Ox 99% on 2 lpm NC; cc3 23:15 BP 117 / 70; Pulse 83; Resp 15 S; Pulse Ox 97% on R/A; cc3 11/27 00:30 BP 121 / 70; Pulse 86; Resp 14 S; Pulse Ox 97% on R/A; cc3 01:15 BP 118 / 67; Pulse 81; Resp 14 S; Pulse Ox 98% on R/A; cc3 MDM: 11/26 18:36 Patient medically screened. jr8 20:52 Data reviewed: vital signs, nurses notes, lab test result(s), EKG, radiologic studies, jr8 plain films. Data interpreted: Pulse oximetry: on room air is 90 %. Interpretation: hypoxia. Plan: O2 by NC applied. Counseling: I had a detailed discussion with the patient and/or guardian regarding: the historical points, exam findings, and any diagnostic results supporting the discharge/admit diagnosis, lab results, radiology results, the need for further work-up and treatment in the hospital. ED course: [facility] to [facility] at [facility] Oncologist accepted but [facility] at capacity. Dr. Spears there is trying to expedite transfer but wants her admitted here for the meantime. Dr. Lassiter will admit patient . 11/26 18:37 Order name: Basic Metabolic Panel; Complete Time: 19:35 8 11/26 18:37 Order name: Blood Culture Adult (2) [facility] 11/26 18:37 Order name: CBC with Diff; Complete Time: 19:30 8 11/26 18:37 Order name: Ckmb; Complete Time: 19:35 11/26 18:37 Order name: CPK; Complete Time: 19:35 11/26 18:37 Order name: Lactate; Complete Time: 19:35 11/26 18:37 Order name: LFT's; Complete Time: 19:35 11/26 18:37 Order name: Lipase; Complete Time: 19:35 11/26 18:37 Order name: Procalcitonin; Complete Time: 20:02 11/26 18:37 Order name: Protime (+inr); Complete Time: 19:30 11/26 18:37 Order name: Ptt, Activated; Complete Time: 19:30 11/26 18:37 Order name: Troponin (emerg Dept Use Only); Complete Time: 19:35 11/26 18:37 Order name: Urine Microscopic Only; Complete Time: 21:41 11/26 21:21 Order name: Urine Dipstick--Ancillary (enter results); Complete Time: 21:57 [facility] 11/26 18:37 Order name: Chest Single View XRAY; Complete Time: 19:47 11/26 18:37 Order name: Accucheck; Complete Time: 21:33 11/26 18:37 Order name: Cardiac monitoring; Complete Time: 20:18 11/26 18:37 Order name: EKG - Nurse/Tech; Complete Time: 21:33 11/26 18:37 Order name: IV Saline Lock - Large Bore; Complete Time: 20:18 11/26 18:37 Order name: Labs collected and sent; Complete Time: 20:18 11/26 18:37 Order name: O2 Per Protocol; Complete Time: 20:18 11/26 18:37 Order name: O2 Sat Monitoring; Complete Time: 20:18 11/26 18:37 Order name: Urine Dipstick-Ancillary (obtain specimen); Complete Time: 21:33 Administered Medications: 19:30 Drug: NS 0.9% (30 ml/kg) 30 ml/kg Route: IV; Rate: bolus; Site: right antecubital; cc3 19:40 Follow up: CELESTINE Dang ordered 2 liters of fluid first then to continue on 100 mL/hr the cc3 remaining liter. 11/27 01:00 Follow up: IV Status: Infusion continued upon admission cc3 11/26 19:47 Not Given (Physician Discretion): Zofran 8 mg IVP once; over 2 minutes jr8 20:10 Drug: Tylenol 1000 mg Route: PO; cc3 20:30 Follow up: Response: No adverse reaction cc3 20:15 Drug: Zofran 4 mg Route: IVP; Site: right antecubital; cc3 20:30 Follow up: Response: No adverse reaction; Nausea is decreased cc3 11/27 00:50 Drug: Tylenol 1000 mg Route: PO; cc3 01:15 Follow up: Response: No adverse reaction; Pain is decreased cc3 Point of Care Testing: Blood Glucose: 11/26 20:24 Blood Glucose: 112 mg/dL; cc3 Ranges: Critical Glucose Levels:Adult <50 mg/dl or >400 mg/dl <40 mg/dl or >180 mg/dl Disposition: 11/27 07:17 Co-signature as Attending Physician, Андрей Velasco MD I agree with the assessment and eloy plan of care. Disposition: 11/26/18 20:55 Hospitalization ordered by Roberta Borjas for Inpatient Admission. Preliminary diagnosis are Acute kidney failure, Anemia due to antineoplastic chemotherapy, Thrombocytopenia, unspecified, Tachycardia, unspecified, Acute respiratory failure with hypoxia. - Bed requested for Telemetry/MedSurg (Inpatient). - Status is Inpatient Admission. cc3 - Condition is Stable. - Problem is new. - Symptoms have improved. UTI on Admission? No Signatures: Dispatcher [employer] EDWV Андрей Velasco MD MD cha Roszak, Josh, PA PA jr8 Lauren Arriola RN RN Sarah Alvarado RN RN tw2 Tonya Solitario cc3 Corrections: (The following items were deleted from the chart) 11/26 23:43 20:55 Hospitalization Ordered by Roberta Borjas MD for Inpatient Admission. Preliminary cg diagnosis is Acute kidney failure; Anemia due to antineoplastic chemotherapy; Thrombocytopenia, unspecified; Tachycardia, unspecified; Acute respiratory failure with hypoxia. Bed requested for Telemetry/MedSurg (Inpatient). Status is Inpatient Admission. Condition is Stable. Problem is new. Symptoms have improved. UTI on Admission? No. jr8 03/25 01:33 11/26 23:43 11/26/2018 20:55 Hospitalization Ordered by Roberta Borjas MD for Inpatient cc3 Admission. Preliminary diagnosis is Acute kidney failure; Anemia due to antineoplastic chemotherapy; Thrombocytopenia, unspecified; Tachycardia, unspecified; Acute respiratory failure with hypoxia. Bed requested for Telemetry/MedSurg (Inpatient). Status is Inpatient Admission. Condition is Stable. Problem is new. Symptoms have improved. UTI on Admission? No. cg
--- NOTE | 2018-11-26 20:55 | ER ---
Nurse's Notes [facility] Name: Anisha Lindsay Age: 53 yrs Sex: Female : 1965 Arrival Date: 11/26/2018 Time: 18:32 Bed 19 Private MD: Diagnosis: Acute kidney failure;Anemia due to antineoplastic chemotherapy;Thrombocytopenia, unspecified;Tachycardia, unspecified;Acute respiratory failure with hypoxia Presentation: 11/26 18:33 Presenting complaint: EMS states: pt with SOB, noted tachycardia, room air 90's, tachy tw2 130-140's HX: of Lung CA, actively in chemo, right upper lobe removed. Transition of care: patient was not received from another setting of care. Onset of symptoms was November 26, 2018. Risk Assessment: Do you want to hurt yourself or someone else? Patient reports no desire to harm self or others. Initial Sepsis Screen: Does the patient meet any 2 criteria? RR > 20 per min. HR > 90 bpm. Yes Does the patient have a suspected source of infection? Yes:. Care prior to arrival: IV initiated. 18 GA, in the right antecubital area. 18:33 Method Of Arrival: EMS: [facility] tw2 18:33 Acuity: CHEN 3 tw2 Triage Assessment: 18:43 General: Appears in no apparent distress. Behavior is cooperative, appropriate for age. tw2 Respiratory: Onset: The symptoms/episode began/occurred yesterday, the patient has mild shortness of breath. Historical: - Allergies: 18:44 Celebrex; tw2 18:44 Demerol; tw2 - Home Meds: 19:15 Albuterol Inhl [Active]; Colestid Oral [Active]; Folic Acid Oral [Active]; gabapentin cc3 Oral [Active]; levothyroxine 50 mcg tab [Active]; Metoprolol Tartrate Oral [Active]; Ofloxacin Otic [Active]; Protonix Oral [Active]; sertraline Oral [Active]; tizanidine Oral [Active]; - PMHx: 18:44 CHF; Stage 4 Lung Cencer- currently on Chemo; Rheumatoid Arthritis; Myocardial tw2 infarction; Hypertension; Hypothyroidism; - Immunization history:: Adult Immunizations. - Social history:: Smoking status: . - Ebola Screening: : Patient denies travel to an Ebola-affected area in the 21 days before illness onset. Screenin:36 Abuse screen: Denies threats or abuse. Nutritional screening: No deficits noted. tw2 Tuberculosis screening: No symptoms or risk factors identified. Fall Risk None identified. Assessment: 18:36 Pain: Complains of pain in abdomen. Neuro: Level of Consciousness is awake, alert, tw2 obeys commands, Oriented to person, place, time, situation. Cardiovascular: Rhythm is sinus tachycardia. Cardiovascular: Reports lightheadedness, Heart tones S1 S2 Patient's skin is warm and dry. Edema is absent. Respiratory: Airway is patent Respiratory effort is even, unlabored, Respiratory pattern is regular, tachypnea Breath sounds are diminished bilaterally. GI: Abdomen is round non-distended, Bowel sounds present X 4 quads. Abd is soft X 4 quads Reports lower abdominal pain, upper abdominal pain. : No signs and/or symptoms were reported regarding the genitourinary system. EENT: No signs and/or symptoms were reported regarding the EENT system. Derm: No signs and/or symptoms reported regarding the dermatologic system. Musculoskeletal: Range of motion: intact in all extremities. 19:15 Reassessment: Patient appears in no apparent distress at this time. Patient and/or cc3 family updated on plan of care and expected duration. Pain level reassessed. Patient is alert, oriented x 3, equal unlabored respirations, skin warm/dry/pink. Received this female patient from morning shift RN Sarah as a case of shortness of breath. With IV cannula gauge 18 at the right ACV saline locked. 20:18 Reassessment: Patient appears in no apparent distress at this time. Patient and/or cc3 family updated on plan of care and expected duration. Pain level reassessed. Patient is alert, oriented x 3, equal unlabored respirations, skin warm/dry/pink. 21:45 Reassessment: Patient appears in no apparent distress at this time. Patient and/or cc3 family updated on plan of care and expected duration. Pain level reassessed. Patient is alert, oriented x 3, equal unlabored respirations, skin warm/dry/pink. 22:25 Reassessment: Patient appears in no apparent distress at this time. Patient and/or cc3 family updated on plan of care and expected duration. Pain level reassessed. Patient is alert, oriented x 3, equal unlabored respirations, skin warm/dry/pink. 23:10 Reassessment: Patient appears in no apparent distress at this time. Patient and/or cc3 family updated on plan of care and expected duration. Pain level reassessed. Patient is alert, oriented x 3, equal unlabored respirations, skin warm/dry/pink. 11/27 00:30 Reassessment: Patient appears in no apparent distress at this time. Patient and/or cc3 family updated on plan of care and expected duration. Pain level reassessed. Patient is alert, oriented x 3, equal unlabored respirations, skin warm/dry/pink. Room available in 405, called telemetry unit but was told that the nurse who will receive will just call me back. 01:00 Reassessment: Patient appears in no apparent distress at this time. Patient and/or cc3 family updated on plan of care and expected duration. Pain level reassessed. Patient is alert, oriented x 3, equal unlabored respirations, skin warm/dry/pink. Report called and handed over to ALEX Nash for continuity of care and management. 01:30 Reassessment: Patient left ER for admission vitally stable by stretcher escorted by ED cc3 kamilla Funes. Vital Signs: 11/26 18:35 BP 124 / 84; Pulse 125; Resp 22; Temp 99.5(O); Pulse Ox 90% on R/A; tw2 19:11 Weight 106.59 kg (R); tw2 19:30 BP 118 / 73; Pulse 113; Resp 13 S; Temp 98.6(O); Pulse Ox 99% on 2 lpm NC; cc3 20:30 BP 127 / 72; Pulse 94; Resp 14 S; Pulse Ox 100% on 2 lpm NC; cc3 21:40 BP 113 / 71; Pulse 89; Resp 12 S; Pulse Ox 99% on 2 lpm NC; cc3 22:30 BP 113 / 71; Pulse 92; Resp 13 S; Pulse Ox 99% on 2 lpm NC; cc3 23:15 BP 117 / 70; Pulse 83; Resp 15 S; Pulse Ox 97% on R/A; cc3 11/27 00:30 BP 121 / 70; Pulse 86; Resp 14 S; Pulse Ox 97% on R/A; cc3 01:15 BP 118 / 67; Pulse 81; Resp 14 S; Pulse Ox 98% on R/A; cc3 ED Course: 11/26 18:32 Patient arrived in ED. tw2 18:34 Triage completed. tw2 18:34 Maintain EMS IV. Dressing intact. Good blood return noted. Site clean \T\ dry. Gauge \T\ tw 2 site: 18g RIGHT AC. 18:36 [facility] jr8 18:36 Андрей Velasco MD is Attending Physician. jr8 18:36 Bed in low position. Side rails up X2. ekg monitor tech on. Pulse ox on. NIBP on. Warm tw2 blanket given. 18:36 Arm band placed on. tw2 18:55 Missed attempt(s): 22 gauge in left antecubital area. blood collected for 1st set of tw2 blood cultures sent with blood work. 19:00 Report given to ALEX Castaneda - OUTSTANDING -2nd set of blood cultures and urine for tw2 micro and dipstick, and NS bolus. 19:09 Tonya Solitario is Primary Nurse. cc3 19:11 X-ray completed. Portable x-ray completed in exam room. Patient tolerated procedure la2 well. 19:17 Chest Single View XRAY In Process Unspecified. EDMS 20:53 Roberta Borjas MD is Hospitalizing Provider. jr8 11/27 01:00 No provider procedures requiring assistance completed. Patient admitted, IV remains in cc3 place. Administered Medications: 11/26 19:30 Drug: NS 0.9% (30 ml/kg) 30 ml/kg Route: IV; Rate: bolus; Site: right antecubital; cc3 19:40 Follow up: CELESTINE Dang ordered 2 liters of fluid first then to continue on 100 mL/hr the cc3 remaining liter. 11/27 01:00 Follow up: IV Status: Infusion continued upon admission cc3 11/26 19:47 Not Given (Physician Discretion): Zofran 8 mg IVP once; over 2 minutes jr8 20:10 Drug: Tylenol 1000 mg Route: PO; cc3 20:30 Follow up: Response: No adverse reaction cc3 20:15 Drug: Zofran 4 mg Route: IVP; Site: right antecubital; cc3 20:30 Follow up: Response: No adverse reaction; Nausea is decreased cc3 11/27 00:50 Drug: Tylenol 1000 mg Route: PO; cc3 01:15 Follow up: Response: No adverse reaction; Pain is decreased cc3 Point of Care Testing: Blood Glucose: 11/26 20:24 Blood Glucose: 112 mg/dL; cc3 Ranges: Intake: Outcome: 20:55 Decision to Hospitalize by Provider. jr8 11/27 01:00 Admitted to Tele accompanied by tech, via stretcher, room 405, with chart, Report cc3 called to ALEX Nash Condition: stable Instructed on the need for admit, Demonstrated understanding of instructions. 01:33 Patient left the ED. cc3 Signatures: Dispatcher [employer] EDMS Roque Dang PA PA jr8 Sarah Alvarado RN RN tw2 Madhuri aMtt la2 Tonya Solitario cc3 Corrections: (The following items were deleted from the chart) 11/26 19:15 19:00 Report given to ALEX Castaneda tw2 tw2 19:15 19:00 Report given to ALEX Castaneda - OUTSTANDING -2nd set of blood cultures and urine tw2 for micro and dipstick tw2
[2018-11-26 21:38] LABS: Urine Amorphous Sediment 1+ /HPF (NONE SEEN); Urine Bacteria <20 /HPF (<20); Urine Culture Reflex Order NOT NEEDED; Urine RBC <5 /HPF (NONE SEEN)
[2018-11-26 21:39] LABS: Urine Blood NEGATIVE (NEG); Urine Glucose NEGATIVE (NEG); Urine Protein TRACE (NEG); Urine Specific Gravity <1.005 (1.005-1.030)
[2018-11-27] MEDS ORDERED: ACETAMINOPHEN 500 MG TAB ONE (01:04)
[2018-11-27] MEDS ORDERED: IPRATROPIUM BROM 0.5MG/2.5ML NEB PRN (01:41)
[2018-11-27] MEDS ORDERED: ALBUTEROL 2.5 MG/3 ML NEB SOL NEB PRN (01:41)
[2018-11-27] MEDS ORDERED: NA CHLORIDE 0.9% 1,000 ML IV SCH (01:41)
[2018-11-27 02:13] LABS: Absolute Lymphocytes (CBC) 1.3 K/uL (0.7-4.9); Absolute Monocytes 0.1 K/uL (0.1-1.3); Absolute Neutrophil 1.7 K/uL (1.8-8.0); Basophils % 0.1 % (0-1.3); Eosinophils % 2.7 % (0-4.4); Lymphocytes % 40.4 % (15.3-44.8); MPV 8.9 fL (7.6-11.3); Monocytes % 3.1 % (3.3-12.3); RBC Red Blood Cell Count 1.51 M/uL (3.86-4.86)
[2018-11-27 02:36] LABS: Potassium 3.6 mmol/L (3.5-5.1)
[2018-11-27 02:46] LABS: Hematocrit 13.7 % (36.0-45.0)
[2018-11-27] MEDS ORDERED: POTASSIUM CL SA 10 MEQ TAB PO ONE (02:51)
[2018-11-27 03:06] LABS: Hematocrit 12.7 % (36.0-45.0)
[2018-11-27 03:19] LABS: Blood Morphology Comment NOT SEEN (NOT SEEN); Platelet Estimate DECR; Urine White Blood Cell Casts OK
[2018-11-27] MEDS ORDERED: NA CHLORIDE 0.9% 250 ML IV SCH ×2 (05:00→08:00)
[2018-11-27] MEDS: ONDANSETRON 4 MG/2 ML VIAL IV PRN ×3 (05:30→21:50)
--- NOTE | 2018-11-27 05:36 | P.HP ---
Certification for Inpatient Patient admitted to: Observation With expected LOS: <2 Midnights Practitioner: I am a practitioner with admitting privileges, knowledge of patient current condition, hospital course, and medical plan of care. Services: Services provided to patient in accordance with Admission requirements found in Title 42 Section 412.3 of the Code of Federal Regulations Patient History Date of Service: 11/26/18 Reason for admission: acute respiratory failure, acute on CKD History of Present Illness: Ms Lindsay is a 53 years old woman with history CAD, HTN, RA, Hypothyroidism, lung cancer currently on chemotherapy, last round done last week. She came to ER complaining of progressive SOB associated with dizziness, specially with light activity. She denied any fever or chills, no nasuea. vomiting or diarrhea. Her lab work is remarkable for Hgb 7.6 mg/dl. Subsequent Hgb shows significant decrease 4.7 mg/dl. It was repeated and also came low 4.4 mg/dl, no signs of active bleeding, paletelet 19K, creatinine more elevated than baseline. CXR shows no acute abnormalities. At arrival her O2 sat was about 90% on RA. ER provider discussed the case with oncologist physician from [facility], where she get her oncology follow up, who recommend to admit the patient for observation in our facility, and transfer the patient when they have bed availability. Allergies celecoxib [From Celebrex] Allergy (Verified 07/02/16 02:13) unknown meperidine [From Demerol] Allergy (Verified 07/02/16 02:13) unknown Home medications list reviewed: Yes Home Medications: Furosemide 20 - 40 mg PO DAILYPRN PRN 07/02/16 Levothyroxine Sodium 75 mcg PO DAILY 07/02/16 Methyl Salicylate/Menthol [Unisom] 2 tab PO BEDTIME PRN PRN 07/02/16 Ondansetron HCl 4 mg PO BIDP PRN 07/02/16 Sertraline HCl 100 mg PO DAILY 07/02/16 Tizanidine [Zanaflex] 2 mg PO DAILY 07/02/16 Metoprolol Succinate [Toprol Xl*] 50 mg PO [id number] #30 tab 07/03/16 Folic Acid 1 mg PO DAILY 11/27/18 Gabapentin [Neurontin] 800 mg PO BEDTIME 11/27/18 Pantoprazole [Protonix Tab*] 40 mg PO DAILY 11/27/18 Potassium Oral Tab [Klor-Con 10 mEq Tab*] 20 meq PO DAILYPRN PRN 11/27/18 Promethazine Tab [Phenergan*] 25 - 50 mg PO Q6HP PRN 11/27/18 Temazepam 30 mg PO BEDTIME 11/27/18 Trazodone HCl [Desyrel] 100 mg PO BEDTIME 11/27/18 - Past Medical/Surgical History Has patient received pneumonia vaccine in the past: No Diabetic: No -: RA -: GERD -: HTN -: osteo -: stage 4 lung ca -: [place] -: CAD -: hypothyroidism -: Barretts esophagus -: hysterectomy -: Total L knee replacement -: lap mehul, lap appy -: pain pump R abdomen -: L lobe thyroidectomy -: R lobectomy -: tonsillectomy -: 3 corneal transplants - Family History Father -: Heart disease Mother -: Cancer Notes: : breast and throat ca Brother -: Cancer Notes: 2 brothers from ca lung ca, colon ca Sister -: Cancer Notes: lung ca - Social History Smoking Status: Former smoker Alcohol use: No CD- Drugs: No Caffeine use: Yes Place of Residence: Home Physical Examination - Vital Signs Temperature: 98.6 F Blood Pressure: 138/65 Pulse: 90 Respirations: 16 Pulse Ox (%): 98 - Studies Laboratory Data (last 24 hrs) 11/26/18 18:55: PT 13.4 H, INR 1.14, APTT 31.5 11/26/18 18:55: WBC 3.0 L, Hgb 7.6 L*, Hct 21.6 L, Plt Count 19 L* 11/26/18 18:55: Sodium 138, Potassium 3.7, BUN 36 H, Creatinine 2.16 H, Glucose 118 H, Total Bilirubin 0.1 L, AST 33, ALT 48, Alkaline Phosphatase 97, Lipase 170 Assessment and Plan - Problems (Diagnosis) (1) Acute on chronic anemia Current Visit: Yes Status: Acute (2) Thrombocytopenia Current Visit: Yes Status: Acute (3) Lung cancer Current Visit: Yes Status: Acute Qualifiers: Laterality: unspecified laterality Lung location: unspecified part of lung Qualified Code(s): C34.90 - Malignant neoplasm of unspecified part of unspecified bronchus or lung (4) Acute kidney injury superimposed on CKD Current Visit: Yes Status: Acute - Plan Will transfuse at least 2 units of PRBC's, 1 unit of platelets, D-dimer elevated , will order VQ scan, doppler US. IV fluids, consult oncology team. - Advance Directives Does patient have a Living Will: No Does patient have a Durable POA for Healthcare: Yes - Code Status/Comfort Care Code Status Assessed: Yes Code Status: Full Code
--- NOTE | 2018-11-27 08:06 | RAD REPORT ---
EXAM DESCRIPTION: NM - Vent Perfusion VQ Scan - 11/27/2018 7:07 am CLINICAL HISTORY: Chest pain, shortness of breath COMPARISON: Chest film November 26 TECHNIQUE: The patient was administered 13.3 mCi Xenon 133 gas with posterior projection inspiration , equilibrium, and washout views obtained. The patient was then administered 7.5 mCi Tc-99m MAA label ed RBCs followed by standard 8 view protocol. FINDINGS: There is good distribution of the Xenon with no ventilation defects identified. Mild diffu se air trapping is present. Small defect is seen lateral lower left lung field on the posterior projection. No other significant perfusion defects identifiable. IMPRESSION: Low probability V/Q scan for pulmonary embolism. Mild diffuse air trapping.
--- NOTE | 2018-11-27 08:48 | EKG ---
Test Date: 2018-11-26 Test Time: 20:45:09 Adolescent Medicine Specialist: BENNY MEASUREMENT RESULTS: Intervals: Rate: 98 CT: 158 QRSD: 90 QT: 338 QTc: 431 [place]: P: 46 CT: 158 QRS: 48 T: 30 INTERPRETIVE STATEMENTS: Normal sinus rhythm Normal ECG Compared to ECG 08/24/2018 18:05:42 Sinus tachycardia no longer present Electronically Signed On 11-27-18 08:47:31 CDT by Tim Tsang
--- NOTE | 2018-11-27 08:52 | RAD REPORT ---
EXAM DESCRIPTION: US - Extrem Venous W Compress [place]ico - 11/27/2018 8:37 am CLINICAL HISTORY: Leg pain and swelling COMPARISON: None. TECHNIQUE: Real-time sonographic evaluation of the bilateral lower extremity common femoral, superfi cial femoral, popliteal and posterior tibial veins was performed. FINDINGS: Normal compressibility, flow augmentation, phasic flow and spontaneous flow are identified in the left and right lower extremity common femoral, superficial femoral, popliteal and posterior t ibial veins. No intraluminal filling defects seen. IMPRESSION: No DVT in either lower extremity.
[2018-11-27] MEDS: ACETAMINOPHEN 500 MG TAB PO PRN (09:14)
[2018-11-27] MEDS: PROMETHAZINE 25 MG TABLET PO PRN ×2 (09:37→17:03)
[2018-11-27] MEDS ORDERED: SUMATRIPTAN SUCCI 50 MG TAB PO PRN (11:37)
[2018-11-27] MEDS ORDERED: NA CHLORIDE 0.9% 250 ML ONE ×3 (11:46→18:00)
[2018-11-27 12:29] LABS: Platelets, Giant RARE
[2018-11-27] MEDS: SUMATRIPTAN SUCCI 50 MG TAB PO PRN ×2 (12:38→21:47)
[2018-11-27 12:57] LABS: RBC Red Blood Cell Count 1.43 M/uL (3.86-4.86)
--- NOTE | 2018-11-27 14:32 | P.PN ---
Subjective Date of Service: 11/27/18 Chief Complaint: acute respiratory failure, acute on CKD Patient seen and examined at bedside. No family at bedside. Chart reviewed and case discussed with nursing staff and Dr. Alba. Patient complaining of a headache at this time. States her sumitriptan usually helps her and has not taken that yet. No active bleeding noted. no other complaints. States all her doctors are at [facility]. Review of Systems 10-point ROS is otherwise unremarkable Physical Examination - Vital Signs Temperature: 99.1 F Blood Pressure: 140/71 Pulse: 106 Respirations: 18 Pulse Ox (%): 99 - Physical Exam General: Alert, Mild distress, Moderate distress HEENT: Atraumatic, PERRLA, EOMI Neck: Supple, JVD not distended Respiratory: Clear to auscultation bilaterally, Normal air movement Cardiovascular: Regular rate/rhythm, Normal S1 S2 Gastrointestinal: Normal bowel sounds, No tenderness Musculoskeletal: No tenderness Integumentary: No rashes Neurological: Normal speech, Normal tone, Normal affect - Studies Laboratory Data (last 24 hrs) 11/26/18 18:55: PT 13.4 H, INR 1.14, APTT 31.5 11/26/18 18:55: WBC 3.0 L, Hgb 7.6 L*, Hct 21.6 L, Plt Count 19 L* 11/26/18 18:55: Sodium 138, Potassium 3.7, BUN 36 H, Creatinine 2.16 H, Glucose 118 H, Total Bilirubin 0.1 L, AST 33, ALT 48, Alkaline Phosphatase 97, Lipase 170 Assessment And Plan - Current Problems (Diagnosis) (1) Elevated d-dimer Current Visit: Yes Status: Acute (2) Malnutrition Current Visit: Yes Status: Chronic Qualifiers: Malnutrition type: protein-calorie malnutrition Protein-calorie malnutrition severity: moderate Qualified Code(s): E44.0 - Moderate protein- calorie malnutrition (3) GERD (gastroesophageal reflux disease) Current Visit: No Status: Chronic Qualifiers: Esophagitis presence: esophagitis presence not specified Qualified Code(s) : K21.9 - Gastro-esophageal reflux disease without esophagitis (4) CAD (coronary artery disease) Current Visit: No Status: Chronic Qualifiers: Coronary Disease-Associated Artery/Lesion type: [place] artery [place] vs. transplanted heart: [place] heart Associated angina: without angina Qualified Code(s): I25.10 - Atherosclerotic heart disease of [place] coronary artery without angina pectoris (5) Hypothyroid Current Visit: No Status: Chronic Qualifiers: Hypothyroidism type: unspecified Qualified Code(s): E03.9 - Hypothyroidism , unspecified (6) Hypertension Current Visit: No Status: Chronic Qualifiers: Hypertension type: essential hypertension Qualified Code(s): I10 - Essential (primary) hypertension (7) Acute kidney injury superimposed on CKD Current Visit: Yes Status: Acute (8) Acute on chronic anemia Current Visit: Yes Status: Acute (9) Lung cancer Current Visit: Yes Status: Chronic Qualifiers: Laterality: unspecified laterality Lung location: unspecified part of lung Qualified Code(s): C34.90 - Malignant neoplasm of unspecified part of unspecified bronchus or lung (10) Thrombocytopenia Current Visit: Yes Status: Acute (11) Rheumatoid arthritis Current Visit: No Status: Acute Qualifiers: Rheumatoid arthritis location: unspecified site Rheumatoid factor presence : unspecified presence Qualified Code(s): M06.9 - Rheumatoid arthritis, unspecified - Plan Acute on chronic anemia Pending 2 units of PRBCs. 2 hr post transfusion CBC ordered Thrombocytopenia Likely secondary to recent chemo hemolysis labs pending to evaluate for ITP Lung cancer, stage 4 Adenocarcinoma Non small cell lung carcinoma Patient currently getting chemotherapy treatment with Alimpta. She has had 6 treatments so far and she is s/p Right upper lung lobectomy. Her Oncologist is Dr. Carrera at [facility]. Acute kidney injury superimposed on CKD Improving creatinine Continue IVF, continue to monitor. Malnutrition, moderate Elevated D-Dimer Likely 2/2 cancer; VQ scan low probability for PE Venous doppler negative for DVT. GERD HTN CAD Hypothyroid DVT Prophylaxis: Lovenox GI prophylaxis: Protonix, Home medication Diet: Regular Disposition: pending transfusion, symptomatic improvement.
[2018-11-27] MEDS: PANTOPRAZOLE 40MG TABLET PO SCH (17:03)
[2018-11-27] MEDS: METOPROLOL XL 50 MG TAB PO SCH (17:03)
[2018-11-27] MEDS: FOLIC ACID 1 MG TABLET PO SCH (17:03)
[2018-11-27] MEDS: SERTRALINE HCL 100 MG TAB PO SCH (17:04)
[2018-11-27] MEDS: GABAPENTIN 400 MG CAP PO SCH (21:47)
[2018-11-27] MEDS: TEMAZEPAM 15 MG CAP PO PRN (21:47)
[2018-11-27] MEDS: TRAZODONE 50 MG TABLET PO PRN (21:48)
[2018-11-28] MEDS: ACETAMINOPHEN 500 MG TAB PO PRN ×2 (01:03→21:39)
[2018-11-28 02:15] LABS: Hematocrit 19.8 % (36.0-45.0)
[2018-11-28] MEDS ORDERED: NA CHLORIDE 0.9% 250 ML ONE (03:46)
[2018-11-28] MEDS: METOPROLOL XL 50 MG TAB PO SCH (06:26)
[2018-11-28] MEDS: LEVOTHYROXINE SOD 0.075 MG TAB PO SCH (06:30)
[2018-11-28] MEDS: PANTOPRAZOLE 40MG TABLET PO SCH (08:25)
[2018-11-28] MEDS: SERTRALINE HCL 100 MG TAB PO SCH (08:25)
[2018-11-28] MEDS: FOLIC ACID 1 MG TABLET PO SCH (08:25)
[2018-11-28 09:08] LABS: Potassium 4.3 mmol/L (3.5-5.1)
[2018-11-28 09:38] LABS: Absolute Lymphocytes (CBC) 1.2 K/uL (0.7-4.9); Absolute Monocytes 0.1 K/uL (0.1-1.3); Absolute Neutrophil 2.2 K/uL (1.8-8.0); Eosinophils % 2.7 % (0-4.4); Hematocrit 25.6 % (36.0-45.0); Lymphocytes % 32.8 % (15.3-44.8); MPV 10.2 fL (7.6-11.3); Monocytes % 2.9 % (3.3-12.3); RBC Red Blood Cell Count 2.86 M/uL (3.86-4.86)
--- NOTE | 2018-11-28 13:03 | P.PN ---
Subjective Date of Service: 11/28/18 Chief Complaint: acute respiratory failure, acute on CKD Subjective: Improving Patient seen and examined at bedside. No family at bedside. Chart reviewed and case discussed with nursing staff and Dr. Alba. Headache resolved. States she is feeling better, just feeling tired. No active bleeding noted. no other complaints. States all her doctors are at [facility]. Discussed case with Dr. Carrera ( [facility]) Review of Systems 10-point ROS is otherwise unremarkable Physical Examination - Vital Signs Temperature: 98.0 F Blood Pressure: 106/63 Pulse: 80 Respirations: 16 Pulse Ox (%): 97 - Physical Exam General: Alert, In no apparent distress, Oriented x3 HEENT: Atraumatic, PERRLA, EOMI Neck: Supple, JVD not distended Respiratory: Clear to auscultation bilaterally, Normal air movement Cardiovascular: Regular rate/rhythm, Normal S1 S2 Gastrointestinal: Normal bowel sounds, No tenderness Musculoskeletal: No tenderness Integumentary: No rashes Neurological: Normal speech, Normal tone, Normal affect Assessment And Plan - Current Problems (Diagnosis) (1) Elevated d-dimer Current Visit: Yes Status: Acute (2) Malnutrition Current Visit: Yes Status: Chronic Qualifiers: Malnutrition type: protein-calorie malnutrition Protein-calorie malnutrition severity: moderate Qualified Code(s): E44.0 - Moderate protein- calorie malnutrition (3) GERD (gastroesophageal reflux disease) Current Visit: No Status: Chronic Qualifiers: Esophagitis presence: esophagitis presence not specified Qualified Code(s) : K21.9 - Gastro-esophageal reflux disease without esophagitis (4) CAD (coronary artery disease) Current Visit: No Status: Chronic Qualifiers: Coronary Disease-Associated Artery/Lesion type: [place] artery [place] vs. transplanted heart: [place] heart Associated angina: without angina Qualified Code(s): I25.10 - Atherosclerotic heart disease of [place] coronary artery without angina pectoris (5) Hypothyroid Current Visit: No Status: Chronic Qualifiers: Hypothyroidism type: unspecified Qualified Code(s): E03.9 - Hypothyroidism , unspecified (6) Hypertension Current Visit: No Status: Chronic Qualifiers: Hypertension type: essential hypertension Qualified Code(s): I10 - Essential (primary) hypertension (7) Acute kidney injury superimposed on CKD Current Visit: Yes Status: Acute (8) Acute on chronic anemia Current Visit: Yes Status: Acute (9) Lung cancer Current Visit: Yes Status: Chronic Qualifiers: Laterality: unspecified laterality Lung location: unspecified part of lung Qualified Code(s): C34.90 - Malignant neoplasm of unspecified part of unspecified bronchus or lung (10) Thrombocytopenia Current Visit: Yes Status: Acute (11) Rheumatoid arthritis Current Visit: No Status: Acute Qualifiers: Rheumatoid arthritis location: unspecified site Rheumatoid factor presence : unspecified presence Qualified Code(s): M06.9 - Rheumatoid arthritis, unspecified - Plan Acute on chronic anemia Hgb improved to 8.9 after 3 units PRBC total. Pending stool occult testing Thrombocytopenia Likely secondary to recent chemo LDH normal, Retic count low, so lower risk for ITP; Haptoglobin and peripheral smear pending. 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 She has had 6 treatments so far and she is s/p Right upper lung lobectomy. Her Oncologist is Dr. Carrera at [facility]. Discussed case with her. Acute kidney injury on CKD, stage 1 suspect that this is secondary to pre-renal secondary to acute anemia Continue IVF, continue to monitor. Elevated D-Dimer Likely 2/2 cancer; VQ scan low probability for PE Venous doppler negative for DVT. Fibrinogen level pending GERD Restart home protonix HTN stable, continue home medications. CAD Stable, no chest pain Continue current medications Hypothyroid Stable, continue home medications DVT Prophylaxis: Lovenox GI prophylaxis: Protonix, Home medication Diet: Regular Disposition: pending symptomatic improvement. Pending Transfer to [facility] as all of patient's physicians are in [facility].
[2018-11-28] MEDS: SUMATRIPTAN SUCCI 50 MG TAB PO PRN ×2 (14:45→21:01)
[2018-11-28] MEDS: GABAPENTIN 400 MG CAP PO SCH (20:40)
[2018-11-28] MEDS: ONDANSETRON 4 MG/2 ML VIAL IV PRN (20:40)
[2018-11-28] MEDS: TEMAZEPAM 15 MG CAP PO PRN (20:41)
[2018-11-28] MEDS: TRAZODONE 50 MG TABLET PO PRN (20:41)
[2018-11-28] MEDS ORDERED: PIPERACIL/TAZO 3.375 GM VIAL IV ONE (23:45)
[2018-11-28] MEDS: PROMETHAZINE 25 MG TABLET PO PRN (23:51)
[2018-11-28] MEDS: PIPER/TAZO/NS 3.375gm 3.375 GM/100 ML BAG IVPB SCH (23:52)
[2018-11-29] MEDS ORDERED: NA CHLORIDE 0.9% 50 ML ONE (00:06)
[2018-11-29] MEDS ORDERED: NA CHLORIDE 0.9% 100 ML ONE (05:57)
[2018-11-29] MEDS: METOPROLOL XL 50 MG TAB PO SCH (06:30)
[2018-11-29] MEDS: PIPER/TAZO/NS 3.375gm 3.375 GM/100 ML BAG IVPB SCH ×2 (06:31→16:00)
[2018-11-29] MEDS: LEVOTHYROXINE SOD 0.075 MG TAB PO SCH (06:31)
[2018-11-29] MEDS: ONDANSETRON 4 MG/2 ML VIAL IV PRN ×3 (06:47→22:20)
[2018-11-29] MEDS: ACETAMINOPHEN 500 MG TAB PO PRN ×2 (06:47→20:12)
[2018-11-29 06:50] LABS: Absolute Lymphocytes (CBC) 0.9 K/uL (0.7-4.9); Absolute Monocytes 0.1 K/uL (0.1-1.3); Absolute Neutrophil 1.9 K/uL (1.8-8.0); Basophils % 0.1 % (0-1.3); Eosinophils % 3.2 % (0-4.4); Hematocrit 21.7 % (36.0-45.0); Lymphocytes % 29.5 % (15.3-44.8); MPV 9.5 fL (7.6-11.3); Monocytes % 4.6 % (3.3-12.3); RBC Red Blood Cell Count 2.45 M/uL (3.86-4.86)
[2018-11-29 06:54] LABS: Protime INR 1.11
[2018-11-29 07:09] LABS: Albumin 2.1 g/dL (3.4-5.0); Bilirubin Total 0.2 mg/dL (0.2-1.0); Magnesium 1.5 mg/dL (1.8-2.4); Potassium 4.4 mmol/L (3.5-5.1); Protein, Total 6.4 g/dL (6.4-8.2)
[2018-11-29] MEDS ORDERED: Magnesium Sulfate 2gm IVPB 2 G/50 ML BAG IV ONE (09:00)
[2018-11-29] MEDS: FOLIC ACID 1 MG TABLET PO SCH (09:22)
[2018-11-29] MEDS: SERTRALINE HCL 100 MG TAB PO SCH (09:22)
[2018-11-29] MEDS: PANTOPRAZOLE 40MG TABLET PO SCH (09:22)
--- NOTE | 2018-11-29 09:32 | P.PN ---
Date of Service: 11/29/18 Notify by nursing staff the patient's temp is a 100.4. Blood cultures are pending. Patient with leukopenia. Will start IV antibiotics pending culture results.
[2018-11-29] MEDS: NA CHLORIDE 0.9% 1,000 ML IV SCH (11:43)
--- NOTE | 2018-11-29 12:33 | RAD REPORT ---
EXAM DESCRIPTION: CT - CT CHEST,ABD,PELVIS W/O - 11/29/2018 12:18 pm CLINICAL HISTORY: Lung cancer, abdominal pain, anemia COMPARISON: 2017 TECHNIQUE: Computed axial tomography of the chest,abdomen and pelvis was obtained. IV and oral contr ast were not requested. All CT scans are performed using dose optimization technique as appropriate and may include automated exposure control or mA/KV adjustment according to patient size. FINDINGS: The evaluation of the debbi, mediastinum, solid organs, vessels and bowel is limited secon sherron to the lack of contrast administration. Postsurgical changes of a right lobectomy. No recurrent right upper lobe mass. Mild to moderate retic ular right lung opacities. An approximately 11 millimeter left upper lobe opacity unchanged. Mild reticular opacities left lung. Small right pleural effusion. Small pericardial effusion No mediastinal or hilar lymphadenopathy. Liver, spleen, pancreas, left kidney adrenals appear grossly normal. Tiny nonobstructing right renal calculi. Postsurgical changes of a ventral hernia repair There is no evidence of diverticulitis. Minimal ascites. Cholecystectomy . IMPRESSION: Right lobectomy Mild to moderate reticular lung opacities may a represent pneumonitis secondary to treatment. Atypica l pneumonia is another consideration. Small pericardial effusion Minimal ascites
[2018-11-29 12:39] LABS: Urine Appearance CLEAR; Urine Bilirubin NEGATIVE (NEG); Urine Blood NEGATIVE (NEG); Urine Color YELLOW; Urine Glucose NEGATIVE (NEG); Urine Protein NEGATIVE (NEG); Urine Specific Gravity <=1.005 (1.005-1.030); Urine Urobilinogen 0.2 mg/dL (0.2-1.0); Urine pH 6.5 (5.0-7.0)
[2018-11-29 12:48] LABS: Urine Microscopic Reflex NO UMIC
--- NOTE | 2018-11-29 13:34 | RAD REPORT ---
EXAM DESCRIPTION: MRI - Lumbar Spine Wo Con - 11/29/2018 1:04 pm CLINICAL HISTORY: Lumbar pain, left-sided radiculopathy, history of lung cancer with right upper lob ectomy, MR compatible pain pump in place COMPARISON: CT study November 29, 2018, MRI imaging 2008 TECHNIQUE: Sagittal T1-weighted, T2-weighted and T2-STIR weighted sequences were obtained. Axial T1 -weighted and heavily T2-weighted sequenceswere obtained through the lumbar disc levels. FINDINGS: Lumbar bodies are normal in height and alignment. No suspicious marrow signal. No paraspi nal masses. No suspicion for metastatic disease. Conus is normal with no clumping or thickening of the cauda equina. T12-L1 level: No herniation and no significant disc bulge. No canal or foramen stenosis. Disc is hemanth ccated. L1-2 level: Disc is desiccated. No herniation or significant degree of disc bulging. No canal or fora men stenosis. L2-3 level: No herniation or significant disc bulge. No canal or foramen stenosis. Disc is desiccated . L3-4 level: Disc is desiccated with loss in disc height. Disc bulge is minimal. No canal or foramen s tenosis. Prominent facet degenerative changes are present. L4-5 level: Disc is desiccated minimally. No herniation or significant degree of disc bulge. Patient has have prominent facet joint degenerative change. No central spinal stenosis. Foramina are borderli ne for stenosis. Perineural fat still surrounds the exiting nerve roots. L5-S1 level: Prominent facet degenerative changes are present. No canal or foramen stenosis. Tarlov cysts are present in the lower sacrum. There is a 2.5 centimeter cystic structure in the subcu taneous fatty tissues posterior to L4-5. This is a small cyst or chronic seroma related to placement of the pain pump. This is not regarded as significant. IMPRESSION: Patient has significant facet degenerative change at L4-5. Foramina are borderline steno tic but no central spinal stenosis. No herniation or significant degree of disc bulge. No evidence for bony metastatic disease or other acute vertebral body finding.
--- NOTE | 2018-11-29 14:04 | RAD REPORT ---
EXAM DESCRIPTION: US - Renal Ultrasound-Complete - 11/29/2018 1:21 pm CLINICAL HISTORY: Acute renal failure COMPARISON: CT study August 2018 FINDINGS: The right kidney measures 10.9 x 4.9 x 4.5 cm. The left kidney measures 10.9 x 4.5 x 3.7 cm. Renal cortical thickness and echogenicity are normal. No hydronephrosis or suspicious renal mass. A small 10 mm cyst is present lateral inferior right kidney. No bladder wall thickening or mass. No intraluminal stone or mass. IMPRESSION: No hydronephrosis or suspicious renal mass. No other significant findings.
--- NOTE | 2018-11-29 14:17 | P.PN ---
Subjective Date of Service: 11/29/18 Chief Complaint: acute respiratory failure, acute on CKD Patient seen and examined at bedside. No family at bedside. Chart reviewed and case discussed with nursing staff and Dr. Alba. Patient admitted for anemia. Reports headache this morning, and abdominal pain. Also reports lower back pain, near dilaudid pain pump. No active bleeding noted. no other complaints. States all her doctors are at [facility]. Discussed case with Dr. Carrera ( [facility]) Review of Systems 10-point ROS is otherwise unremarkable Physical Examination - Vital Signs Temperature: 98.9 F Blood Pressure: 109/63 Pulse: 98 Respirations: 18 Pulse Ox (%): 93 - Physical Exam General: Alert, In no apparent distress, Oriented x3 HEENT: Atraumatic, PERRLA, EOMI Neck: Supple, JVD not distended Respiratory: Clear to auscultation bilaterally, Normal air movement Cardiovascular: Regular rate/rhythm, Normal S1 S2 Gastrointestinal: Normal bowel sounds, Tenderness (MIld, diffuse) Musculoskeletal: No tenderness Integumentary: No rashes Neurological: Normal speech, Normal tone, Normal affect Lymphatics: No axilla or inguinal lymphadenopathy - Studies Laboratory Data (last 24 hrs) 11/29/18 06:35: Sodium 143, Potassium 4.4, BUN 37 H, Creatinine 2.16 H, Glucose 98, Phosphorus 3.0, Magnesium 1.5 L D, Total Bilirubin 0.2, AST 27, ALT 37, Alkaline Phosphatase 74 11/29/18 06:35: PT 13.0 H, INR 1.11, APTT 31.6 11/29/18 06:35: WBC 3.0 L D, Hgb 7.5 L*, Hct 21.7 L D, Plt Count 23 L* Assessment And Plan - Current Problems (Diagnosis) (1) Elevated d-dimer Current Visit: Yes Status: Acute (2) Malnutrition Current Visit: Yes Status: Chronic Qualifiers: Malnutrition type: protein-calorie malnutrition Protein-calorie malnutrition severity: moderate Qualified Code(s): E44.0 - Moderate protein- calorie malnutrition (3) GERD (gastroesophageal reflux disease) Current Visit: No Status: Chronic Qualifiers: Esophagitis presence: esophagitis presence not specified Qualified Code(s) : K21.9 - Gastro-esophageal reflux disease without esophagitis (4) CAD (coronary artery disease) Current Visit: No Status: Chronic Qualifiers: Coronary Disease-Associated Artery/Lesion type: [place] artery [place] vs. transplanted heart: [place] heart Associated angina: without angina Qualified Code(s): I25.10 - Atherosclerotic heart disease of [place] coronary artery without angina pectoris (5) Hypothyroid Current Visit: No Status: Chronic Qualifiers: Hypothyroidism type: unspecified Qualified Code(s): E03.9 - Hypothyroidism , unspecified (6) Hypertension Current Visit: No Status: Chronic Qualifiers: Hypertension type: essential hypertension Qualified Code(s): I10 - Essential (primary) hypertension (7) Acute kidney injury superimposed on CKD Current Visit: Yes Status: Acute (8) Acute on chronic anemia Current Visit: Yes Status: Acute (9) Lung cancer Current Visit: Yes Status: Chronic Qualifiers: Laterality: unspecified laterality Lung location: unspecified part of lung Qualified Code(s): C34.90 - Malignant neoplasm of unspecified part of unspecified bronchus or lung (10) Thrombocytopenia Current Visit: Yes Status: Acute (11) Rheumatoid arthritis Current Visit: No Status: Acute Qualifiers: Rheumatoid arthritis location: unspecified site Rheumatoid factor presence : unspecified presence Qualified Code(s): M06.9 - Rheumatoid arthritis, unspecified (12) Abdominal pain Current Visit: Yes Status: Acute Qualifiers: Abdominal location: generalized Qualified Code(s): R10.84 - Generalized abdominal pain (13) Fever Current Visit: Yes Status: Acute Qualifiers: Fever type: unspecified Qualified Code(s): R50.9 - Fever, unspecified (14) Immunocompromised Current Visit: Yes Status: Acute - Plan Acute on chronic anemia Hgb did improve to 8.9 after 3 units PRBC total but repeat this am down to 7.5. Will recheck H&H this afternoon and transfuse if less than 7. Pending stool occult testing. Apparently as patient has not had a bowel movement, per hospital protocol, we are unable to perform a stool occult test at this time. Discussed with [facility] laboratory assistant - they will not be able to send someone to collect the stool, the nurse is not allowed to get a sample via rectal exam and neither am I. Will continue to wait to have stool for occult testing. Fever, in a neutropenic patient Due to hx of immunocompromised status, started IV zosyn pending Blood cultures UC/UA pending MRI of lower back ordered as patient with pain pump. Eval for source of fever? Continue to monitor closely. Abdominal pain CT abdomen ordered, pending. Denies any worse nausea than normal for her. States she did have a week of nausea/vomiting and diarrhea about 1.5 weeks ago which she attributed to her chemo session. Thrombocytopenia Likely secondary to recent chemo LDH normal, Retic count low, so lower risk for ITP; Haptoglobin and peripheral smear still pending. she is s/p 1 unit platelet transfusion this hospitalization. 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 She has had 6 treatments so far and she is s/p Right upper lung lobectomy. Last chemo 11/06/2018. Her Oncologist is Dr. Carrera at [facility]. Discussed case with her. Transfer to [facility] pending bed availability. Acute kidney injury on CKD, stage 1 suspect that this is secondary to pre-renal secondary to acute anemia Continue IVF, continue to monitor. Creatinine continue to worsen, nephrology consulted. Elevated D-Dimer Likely 2/2 cancer; VQ scan low probability for PE Venous doppler negative for DVT. Fibrinogen level pending GERD Restart home protonix HTN stable, continue home medications. CAD Stable, no chest pain Continue current medications Hypothyroid Stable, continue home medications DVT Prophylaxis: Lovenox GI prophylaxis: Protonix, Home medication Diet: Regular Disposition: pending symptomatic improvement. Pending Transfer to [facility] as all of patient's physicians are in [facility]. Critical Care: No Time Spent Managing PTS Care (In Minutes): 55
[2018-11-29] MEDS: SUMATRIPTAN SUCCI 50 MG TAB PO PRN ×2 (15:46→20:19)
[2018-11-29 15:53] LABS: RBC Red Blood Cell Count 2.42 M/uL (3.86-4.86)
[2018-11-29 16:57] LABS: Blood Morphology Comment NOTED (NOT SEEN); Platelet Estimate DECR; Urine White Blood Cell Casts OK
[2018-11-29 17:33] LABS: Ferritin 2086.6 ng/mL (8-388); Folic Acid, (Folate) 3.9 ng/mL (3.1-17.5)
[2018-11-29 19:01] LABS: Absolute Lymphocytes (CBC) 0.7 K/uL (0.7-4.9); Absolute Monocytes 0.1 K/uL (0.1-1.3); Absolute Neutrophil 1.9 K/uL (1.8-8.0); Basophils % 0.1 % (0-1.3)
[2018-11-29 19:04] LABS: Protime INR 1.05
[2018-11-29 19:09] LABS: Eosinophils % 2.9 % (0-4.4); Hematocrit 21.9 % (36.0-45.0); Lymphocytes % 24.7 % (15.3-44.8); MPV 9.1 fL (7.6-11.3); Monocytes % 4.8 % (3.3-12.3); RBC Red Blood Cell Count 2.45 M/uL (3.86-4.86)
[2018-11-29] MEDS: TEMAZEPAM 15 MG CAP PO PRN (20:11)
[2018-11-29] MEDS: GABAPENTIN 400 MG CAP PO SCH (20:12)
[2018-11-29] MEDS: PROMETHAZINE 25 MG TABLET PO PRN (20:12)
[2018-11-29] MEDS: TRAZODONE 50 MG TABLET PO PRN (20:12)
--- NOTE | 2018-11-30 00:18 | CON ---
Date of Consultation: 11/29/2018 Chief Complaint: Acute kidney injury. History Of Present Illness: The patient has multiple medical problems. She presented to the [facility] because of generalized weakness. She has metastatic lung cancer and was found to have severe anemi a and received blood transfusion. The patient was found to have elevated azotemia previously. She w as seen by a [facility] and this she was scheduled for chemotherapy and was found to have elevated BUN and creatinine, was discharged home with recommendation to follow up outpatient. The p atient on arrival to the hospital was found to have a creatinine of 2.16 and has been fluctuating fro m 1.99 to 2.16. The patient although last year had lab work done, which showed relatively normal cre atinine level. In August 2018, creatinine was 1.2. On December 14, 2017, creatinine was 1.04. Review of Systems: The patient complains of generalized weakness. Denies syncope. Denies seizures. Eyes: Denies vision changes. Ears, Nose, Mouth, and Throat: Denies sore throat, earache. Respiratory: Has some dyspnea on exertion. Nonproductive cough. : Denies dysuria, hematuria. Musculoskeletal: Denies muscle aches or joint swelling. All other systems reviewed and all are nega tive. Past Medical History: Coronary artery disease; hypertension; rheumatoid arthritis; hypothyroidism; l ian cancer, currently on chemotherapy. The patient has history of multiple medical problems includin g history of rheumatoid arthritis, GERD, hypertension, osteoarthritis, stage IV lung cancer, myocardi al infarction, coronary artery disease, hypothyroidism, Haque's esophagus, hysterectomy, total knee replacement, laparoscopic cholecystectomy, laparoscopic appendectomy, pain pump to the right abdomen for chronic pain, left lobe thyroidectomy, right lobectomy, tonsillectomy, and 3 corneal transplants . Family History: Father, heart disease. Mother, cancer of the breast and throat. Brother, lung canc er and colon cancer. Sister, from lung cancer. Social History: Denies tobacco, alcohol, or illicit drugs. Physical Examination: Vital Signs: Blood pressure is 138/65, heart rate is 90, temperature 98.6, respiratory rate 16, SpO2 98%. GENERAL: Not in acute distress. EYES: Anicteric sclerae. EOMI. EARS, NOSE, MOUTH, AND THROAT: Oral mucosa moist. No pallor. NECK: Supple. No JVD. No bruits. LUNGS: Diminished breath sounds at the bases. No crackles. HEART: S1, S2. No pericardial friction rub. ABDOMEN: Soft, benign, nontender. EXTREMITIES: Minimal edema. Laboratory Data: WBC 3.0, hemoglobin 7.6, hematocrit 21.6, platelet count is 19,000. Sodium 148, po tassium 3.7, BUN 36, creatinine 2.16, glucose 118, total bilirubin 0.1, 97, lipase 170. Impression And Plan: 1.Acute on chronic anemia. The patient received blood transfusion. The patient underwent a chemoth erapy recently. 2.Thrombocytopenia secondary to a chemotherapy. The patient is followed by equipment oiler. 3.Lung cancer. The patient has malignant neoplasm part of unspecified bronchus of lungs. The patient will have chemotherapy currently. She is admitted for severe anemia and chemotherapy i s on hold. The patient will have 2 units of packed red blood cells and 1 unit of platelets. D-dimer is pending. The patient will have V/Q scan to rule out pulmonary embolism. 4.Continue IV fluids for acute kidney injury. The patient likely has prerenal azotemia and nonoligu jenny acute tubular necrosis. Monitor fluid balance and urine output. 5.Possible sepsis. The patient will continue Zosyn with renal dose. 6.Blood work today showed sodium 143, potassium 4.4, chloride 110, CO2 25, BUN 37, creatinine 2.16. Yesterday, creatinine was 2.07. The patient was found to have hypomagnesemia. Magnesium was 1.5 an d the patient will receive replacement. 7.The patient had kidney ultrasound done today and it showed right kidney 10.9 cm in length, left ki dney 10.9 cm in length. There is renal cortical thickness and echogenicity in normal pattern. There is no hydronephrosis. There is small 10 mm cyst. 8.The patient will have uric acid level and CK level to check for any evidence of hyperuricemia and to rule out rhabdomyolysis. 9.Hypoalbuminemia. The patient likely has malnutrition. Urinalysis was done and it did not show ac tive urinary sediment. There is previous history of proteinuria. Recent past, there is no proteinur ia on the urine screen. If renal function does not improve, the patient will need to be ruled out fo r monoclonal gammopathy of unknown significance. COLT/ANUPAM Voice ID: [id number] Report ID: [id number]
[2018-11-30] MEDS: PIPER/TAZO/NS 3.375gm 3.375 GM/100 ML BAG IVPB SCH ×3 (00:22→18:10)
[2018-11-30] MEDS: NA CHLORIDE 0.9% 1,000 ML IV SCH ×4 (00:22→16:21)
[2018-11-30 05:33] LABS: Absolute Lymphocytes (CBC) 0.7 K/uL (0.7-4.9); Absolute Monocytes 0.2 K/uL (0.1-1.3); Absolute Neutrophil 1.8 K/uL (1.8-8.0); Basophils % 0.1 % (0-1.3); Eosinophils % 3.2 % (0-4.4); Lymphocytes % 25.2 % (15.3-44.8); MPV 10.5 fL (7.6-11.3); Monocytes % 6.5 % (3.3-12.3)
[2018-11-30 05:35] LABS: Hematocrit 20.7 % (36.0-45.0)
[2018-11-30 05:49] LABS: Potassium 4.6 mmol/L (3.5-5.1)
[2018-11-30] MEDS: ONDANSETRON 4 MG/2 ML VIAL IV PRN ×2 (06:38→18:10)
[2018-11-30] MEDS: LEVOTHYROXINE SOD 0.075 MG TAB PO SCH (06:38)
[2018-11-30] MEDS: METOPROLOL XL 50 MG TAB PO SCH (06:38)
[2018-11-30] MEDS: SUMATRIPTAN SUCCI 50 MG TAB PO PRN ×2 (06:46→18:14)
[2018-11-30] MEDS: FOLIC ACID 1 MG TABLET PO SCH (08:21)
[2018-11-30] MEDS: PANTOPRAZOLE 40MG TABLET PO SCH (08:21)
[2018-11-30] MEDS: SERTRALINE HCL 100 MG TAB PO SCH (08:21)
[2018-11-30] MEDS: ACETAMINOPHEN 500 MG TAB PO PRN ×2 (09:39→20:41)
--- NOTE | 2018-11-30 11:18 | RAD REPORT ---
EXAM DESCRIPTION: RAD - Chest Pa And Lat (2 Views) - 11/30/2018 11:00 am CLINICAL HISTORY: Lung cancer COMPARISON: CT chest November 29, portable chest November 26 TECHNIQUE: PA and lateral views of the chest were obtained. FINDINGS: The lungs are fibrotic as a baseline. Normal volume left hemithorax shows trace stranding in the posterior lung bases. Findings are similar or less prominent than on the CT study. Mid and upp er left lung field shows no new or progressive finding. Volume reduced right hemithorax shows continued pleural and parenchymal opacification in the right ba se matching the CT study. No improvement over the 1 day interval. Right-sided Port-A-Cath is in place . Heart size is normal and central vasculature is within normal limits. No pneumothorax or enlargin g pleural effusion. No acute bony finding noted. No aortic abnormality. IMPRESSION: Right base pleural and parenchymal opacification similar to the prior day CT study. Minimal stranding in the left base also stable from prior imaging.
[2018-11-30] MEDS ORDERED: VANCOMYCIN 1.25 GM in NA CHLORIDE 0.9% 250 ML IVPB SCH (12:00)
[2018-11-30] MEDS ORDERED: VANCOMYCIN 1.75 GM in NA CHLORIDE 0.9% 500 ML IVPB SCH ×2 (12:00→17:00)
[2018-11-30] MEDS ORDERED: NA CHLORIDE 0.9% 250 ML ONE (12:39)
--- NOTE | 2018-11-30 12:56 | P.PN ---
Subjective Date of Service: 11/30/18 Chief Complaint: acute respiratory failure, acute on CKD Patient seen and examined at bedside. No family at bedside. Chart reviewed and case discussed with nursing staff and Dr. Alba. Patient admitted for anemia. Reports still feeling winded and tired this am. Reports improved abdominal pain. Headache has resolved. No changes in lower back pain, near dilaudid pain pump. No active bleeding noted. no other complaints. States all her doctors are at [facility]. Discussed case with Dr. Carrera ( [facility]) Review of Systems 10-point ROS is otherwise unremarkable Physical Examination - Vital Signs Temperature: 100.1 F Blood Pressure: 121/66 Pulse: 100 Respirations: 16 Pulse Ox (%): 95 - Physical Exam General: Alert, In no apparent distress, Oriented x3 HEENT: Atraumatic, PERRLA, EOMI Neck: Supple, JVD not distended Respiratory: Clear to auscultation bilaterally, Normal air movement Cardiovascular: Regular rate/rhythm, Normal S1 S2 Gastrointestinal: Normal bowel sounds, No tenderness Musculoskeletal: No tenderness Integumentary: No rashes Neurological: Normal speech, Normal tone, Normal affect Assessment And Plan - Current Problems (Diagnosis) (1) Elevated d-dimer Current Visit: Yes Status: Acute (2) Malnutrition Current Visit: Yes Status: Chronic Qualifiers: Malnutrition type: protein-calorie malnutrition Protein-calorie malnutrition severity: moderate Qualified Code(s): E44.0 - Moderate protein- calorie malnutrition (3) GERD (gastroesophageal reflux disease) Current Visit: No Status: Chronic Qualifiers: Esophagitis presence: esophagitis presence not specified Qualified Code(s) : K21.9 - Gastro-esophageal reflux disease without esophagitis (4) CAD (coronary artery disease) Current Visit: No Status: Chronic Qualifiers: Coronary Disease-Associated Artery/Lesion type: [place] artery [place] vs. transplanted heart: [place] heart Associated angina: without angina Qualified Code(s): I25.10 - Atherosclerotic heart disease of [place] coronary artery without angina pectoris (5) Hypothyroid Current Visit: No Status: Chronic Qualifiers: Hypothyroidism type: unspecified Qualified Code(s): E03.9 - Hypothyroidism , unspecified (6) Hypertension Current Visit: No Status: Chronic Qualifiers: Hypertension type: essential hypertension Qualified Code(s): I10 - Essential (primary) hypertension (7) Acute kidney injury superimposed on CKD Current Visit: Yes Status: Acute (8) Acute on chronic anemia Current Visit: Yes Status: Acute (9) Lung cancer Current Visit: Yes Status: Chronic Qualifiers: Laterality: unspecified laterality Lung location: unspecified part of lung Qualified Code(s): C34.90 - Malignant neoplasm of unspecified part of unspecified bronchus or lung (10) Thrombocytopenia Current Visit: Yes Status: Acute (11) Rheumatoid arthritis Current Visit: No Status: Acute Qualifiers: Rheumatoid arthritis location: unspecified site Rheumatoid factor presence : unspecified presence Qualified Code(s): M06.9 - Rheumatoid arthritis, unspecified (12) Abdominal pain Current Visit: Yes Status: Acute Qualifiers: Abdominal location: generalized Qualified Code(s): R10.84 - Generalized abdominal pain (13) Fever Current Visit: Yes Status: Acute Qualifiers: Fever type: unspecified Qualified Code(s): R50.9 - Fever, unspecified (14) Immunocompromised Current Visit: Yes Status: Acute (15) Sepsis Current Visit: Yes Status: Acute Qualifiers: Sepsis type: sepsis due to unspecified organism Qualified Code(s): A41.9 - Sepsis, unspecified organism - Plan Acute on chronic anemia Hgb did improve to 8.9 after 3 units PRBC total but continues to trend down. Hgb down to 7 this am, will transfuse 1 more unit. stool occult negative. Sepsis, unsure of source Fever, in a neutropenic patient Due to hx of immunocompromised status, continue IV zosyn pending Blood cultures, NG24 hrs UC/UA pending, MRI of lower back with no acute abnormalities. Continue to monitor closely. Flu negative Fever could also be secondary to her rheumatoid arthritis, though unsure. Abdominal pain Resolved this am. CT abdomen negative for anything acute. Denies any worse nausea than normal for her. States she did have a week of nausea/vomiting and diarrhea about 1.5 weeks ago which she attributed to her chemo session. Thrombocytopenia Likely secondary to recent chemo LDH normal, Retic count low, so lower risk for ITP; Haptoglobin and peripheral smear still pending. she is s/p 1 unit platelet transfusion this hospitalization. 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 She has had 6 treatments so far and she is s/p Right upper lung lobectomy. Last chemo session 11/06/2018. Her Oncologist is Dr. Carrera at [facility]. Discussed case with her. Transfer to [facility] pending bed availability. Acute kidney injury on CKD, stage 1 suspect that this is secondary to pre-renal secondary to acute anemia Continue IVF, continue to monitor. Creatinine stable this am, nephrology consulted. Recommendations appreciated. Elevated D-Dimer Likely 2/2 cancer; VQ scan low probability for PE Venous doppler negative for DVT. GERD Restart home protonix HTN stable, continue home medications. CAD Stable, no chest pain Continue current medications Hypothyroid Stable, continue home medications DVT Prophylaxis: Lovenox GI prophylaxis: Protonix, Home medication Diet: Regular Disposition: Will need to continue to monitor fevers/vitals signs closely as patient is sick and immunocompromised. If continues to worsen, may need to transfer to ICU. pending symptomatic improvement. [facility] Critical Care: Yes Time Spent Managing PTS Care (In Minutes): 55
[2018-11-30 18:36] LABS: Hematocrit 23.1 % (36.0-45.0)
[2018-11-30] MEDS: TRAZODONE 50 MG TABLET PO PRN (20:42)
[2018-11-30] MEDS: GABAPENTIN 400 MG CAP PO SCH (20:42)
[2018-11-30] MEDS: TEMAZEPAM 15 MG CAP PO PRN (20:43)
[2018-11-30] MEDS: PROMETHAZINE 25 MG/ML VIAL IV PRN (20:45)
--- NOTE | 2018-11-30 22:41 | P.CNS ---
Date of Consult: 11/30/18 (Hematology/Oncology) Reason for consultation: Pancytopenia HPI:Patient is a 53 yr old woman with pertinent PMH of Rheumatoid arthritis, currently undergoing active chemotherapy for lung adenocarcinoma (unclear stage - likely Stage 1V (due to b/l lung disease). Apparently, as per her oncologist in [facility], Dr. Carrera, pt had neoadjuvant chemotherapy, with carboplatin and pemetrexed following which she had lobectomy on the right. Post surgery, she was placed on maintenance pemetrexed. Her last chemo was on November 06, 2018. She required PRBC transfusion early November when her hemoglobin was around 7gms. She is not aware of any CHEVY use or IV iron use in the past. Also at some point, she seemed to have a Rheumatoid arthritis flare which jt pains and malar rash for which she took NSAIDS. She is not under the care of a [employer] at this time She is currently not on any medications for RA. h/o prior humira use. Patient reports fatigue and generally feeling weak since last chemo and became more symptomatic with light headedness and CAMPOS when she presented to ER. When admitted her hemoglobin was 7.6 grams, WBC of 3000, PLTS of 19,000. Hb dropped the next day as low as 4.4gms. She was also found to be in renal failure as well. Since admission she has been receiving transfusion support with an adequate response to 3 PRBC and somewhat inadequate response to one unit of PLTS. Hemolysis workup was negative and only rare schistocytes noted on smear. Patient symptomatically feels slightly better since admission though has some vague aches and pains including abdominal pain and joint pains. Imaging did not reveal any source of bleed or pertinent pathology and guiaic test was negative. She is being treated with broad spectrum antibiotics given she p/w neutropenia and also for possible pneumonia/ pneumonitis and REVIEW OF SYSTEMS: General (Constitutional): (++) fatigue; (+)fever- low grade; (-)night sweat; (+)loss of appetite; some wt loss on and off; (-)heat or cold intolerance; (-)rash or itching; (-) recurrent infection; (+) history of anemia; (+)transfusion; (-) bruising. HEENT: (+) headaches; (-)vision loss; (-) hearing loss; (-)nasal congestion; (-) bleeding mouth, nose, gums; (+) swallowing difficulties- claims due to Bar[place]; (-) hoarseness. Cardiovascular: (-)chest pain or pressure;(-) SOB; (-) orthopnea or PND. (-)palpitation; (-) syncope; (-)leg swelling. Pulmonary: (-) cough; (-)sputum; (+)shortness of breath on exertion; (-)wheezing; (-) hemoptysis. Gastrointestinal: (+) abd pain mild and intermittent initially- resolved now; (+) reflux intermittent; (-)heartburn; (+)nausea/ lack of taste since chemo; (-)vomiting; (-)hematemesis; (-)change in bowel habits; (-) rectal bleeding; (-) black tarry stools; (-) diarrhea; (-) constipation. Genitourinary: (-) pain or burning during micturition; (-) urgency; (-)frequency; (-)poor stream of urine; (-) hematuria; (-) polyuria; (-)nocturia. Neurologic: (-)double vision ;(-) chronic loss of vision; (-) difficulty with speech or memory; (-) weakness ; (+)intermittent tingling in the extremities; (-)numbness of extremities; (-) difficulty walking or with balance. Musculoskeletal: (-) acute jt pains; (+) chronic jt pains Psychiatric: no c/o Skin: (+) h/o malar rash resolved Past Medical/surgical History: Coronary artery disease; hypertension; rheumatoid arthritis; hypothyroidism; lung cancer, currently on chemotherapy, Haque's esophagus, hysterectomy, total knee replacement, laparoscopic cholecystectomy, laparoscopic appendectomy, pain pump to the right abdomen for chronic pain, left lobe thyroidectomy, right lobectomy, tonsillectomy, and 3 corneal transplants. Family History: Father, heart disease. Mother, cancer of the breast and throat. Brother, from lung cancer and colon cancer in his 50's. Sister, from lung cancer in her 40's. Social History: Denies tobacco, alcohol, or illicit drugs. EXAMINATION: Vitals stable, afebrile General Appearance: Well developed, obese, lying in bed, appears pale, not in distress Skin, Hair & Nails: normal texture, normal turgor and color. No open wounds. Head: normocephalic, atraumatic. Eyes: anicteric, no injection of conjunctivae; opaque left eye Ears: hearing grossly intact. Nose: nares patent. Throat: no erythema, no exudate, mouth dry. Neck: neck supple, without lymphadenopathy. PAC on right Respiratory: good respiratory effort, clear to auscultation, no wheezing. Cardiovascular: regular rate and rhythm, no murmurs, no cyanosis. Abdomen: bowel sounds present and equal in all four quadrants, abdomen is soft, nondistended, no masses, no hepatosplenomegaly. Peripheral Vascular: 1+pedal edema. Musculoskeletal: normal gait, normal posture, 5/5 strength through upper extremities; mild swollen hand jts, not warm. Neurological: AAOx3, NFND Lymph: no palpable supraclavicular, submental, cervical, axillary, epitrochlear or inguinal Psych: good mood, insight and judgement LABS: Hb 7g (8.9) RBC 2.42 (1.51) MCV 85-90 RET 0.51% ABS RET 0.01 LDH 224, HAPTO 395, LINDA NEGATIVE, T bili 0.2 WBC 3 (2.8) Plt 19 (26 post SDP) BUN/Cr 42/2.1 IRON PANEL 166/230/46%/2086; B12 518 PT 12.4; PTT 32 Fb 663 PROBLEMS/ RECOMMENDATIONS ' 1. PANCYTOPENIA: Likely secondary to severe myelosuppression (from chemotherapy in a background of chronic autoimmune disease). Retic ct and RBC indicative of a myelosuppressed marrow. Counts usually expected to recuperate within 3 weeks post chemotherapy but she still remains severely pancytopenic. anemia: myelosuppression/ element of anemia due to neoplasm/neoplastic chemotherapy/ anemia of chronic inflammation/ kidney diesease. c/w supportive transfusions to keep Hb >8gm. She will benefit from erythropoietin stimulating agents (procrit) as well if EPO level favorable. Recommend GI evaluation as well to make sure no occult losses. . leucopenia: Due to autoimmune disease/ myelosuppression. ANC is adequate. No need for c-GSF at this time. Thrombocytopenia: TTP has been ruled out. She does not appear to be in DIC. No evidence of microangiopathy. Low probability of PAUL. She did not have an adequate response to one unit platelets. It is possible she might have an autoimmune component to this as well. She is asymptomatic with no reported bleeding. For now, - transfuse PRBC to keep Hb >8gm - Transfuse single donor platelets if plt count less than 15,000 or if bleeding. - G-CSF support if ANC < 500 and febrile Lab work up: Please send flow cytometry. Other labs including SPEP with immunofixation, serum free light chains, IgG, IgA , IgM, erythropoietin level Check for parvovirus antibodies. 2. RA: She seems to have some vague s/s- rash, low grade fevers, jt pains. It is possible she had a recent flare. She will need a comprehensive Rheumatology evaluation for the same. 3. Acute on chronic renal failure: Follow up Nephrology recommendations. Please do not hesitate to call me with any questions. D/w Dr Santana.
[2018-12-01] MEDS: ACETAMINOPHEN 500 MG TAB PO PRN ×4 (00:38→23:57)
[2018-12-01] MEDS: PIPER/TAZO/NS 3.375gm 3.375 GM/100 ML BAG IVPB SCH ×3 (00:39→16:41)
[2018-12-01] MEDS: NA CHLORIDE 0.9% 1,000 ML IV SCH ×3 (02:02→20:09)
[2018-12-01] MEDS: LEVOTHYROXINE SOD 0.075 MG TAB PO SCH (05:41)
[2018-12-01] MEDS: METOPROLOL XL 50 MG TAB PO SCH (05:41)
[2018-12-01 07:10] LABS: Absolute Lymphocytes (CBC) 0.8 K/uL (0.7-4.9); Absolute Monocytes 0.2 K/uL (0.1-1.3); Absolute Neutrophil 1.5 K/uL (1.8-8.0); Eosinophils % 3.8 % (0-4.4); Hematocrit 21.4 % (36.0-45.0); Lymphocytes % 30.3 % (15.3-44.8); MPV 9.7 fL (7.6-11.3); Monocytes % 8.8 % (3.3-12.3); RBC Red Blood Cell Count 2.46 M/uL (3.86-4.86)
[2018-12-01] MEDS: PANTOPRAZOLE 40MG TABLET PO SCH (08:36)
[2018-12-01] MEDS: FOLIC ACID 1 MG TABLET PO SCH (08:36)
[2018-12-01] MEDS: SERTRALINE HCL 100 MG TAB PO SCH (08:36)
--- NOTE | 2018-12-01 08:50 | PN ---
Date of Progress Note: 11/30/2018 Subjective: The patient metastatic lung carcinoma, was admitted for feeling weak, found to have acute anemia. The patient also has ROSALVA. Creatinine was 1.3 in September 2018 and elevated to 2.1, stable. The patient is spiking fever. Cultures so far negative. Today has temperature of 100.1. Creatinine is stable. We will reduce IV fluid. She is on a today as the patient has spiked fever and being transferred to [facility]. Objective: Vital Signs: Temperature 100.1, pulse rate 100, blood pressure 112/ 66. General: Awake, alert, oriented x3, not in distress. Neck: Supple. No elevated JVD. Heart: Regular rate and rhythm. Normal S1, S2. Chest: Clear to auscultation bilaterally. No rales or wheezes. Abdomen: Distended, soft, and nontender. Extremities: No edema. Laboratory Data: White count 2.8, hemoglobin of 7, and platelet of 26. Sodium 141, potassium 4.6, chloride 109, BUN 42, creatinine 2.1, calcium 8.1. Assessment And Plan: Acute kidney injury, possibly acute tubular necrosis from chemotherapy. We will continue IV fluid. Ultrasound, no hydronephrosis. UA, no protein or blood. Renal dose medication. Baseline creatinine 1.3 in September 2018. Pancytopenia markedly form malignancy and chemotherapy. No active bleeding. Transfusions to keep hemoglobin more than 7. Hematology evaluation. Anemia hemoglobin more than 7, ferritin 2000, B12 okay, folate 4, will start on folate replacement. Lung cancer stage IV. The patient was on palliative chemo by a [facility]. Oncology evaluation. Tumor lysis ruled out. CK and uric acid within normal. Fever. Culture so far negative possibly due to malignancy. Continue to monitor. Follow up repeated culture. Continue antibiotic as per primary. Overall poor prognosis. AA/MODL Voice ID: [id number] Report ID: [id number] DEBI
[2018-12-01] MEDS: ONDANSETRON 4 MG/2 ML VIAL IV PRN (11:47)
[2018-12-01] MEDS: SUMATRIPTAN SUCCI 50 MG TAB PO PRN ×2 (12:39→16:49)
--- NOTE | 2018-12-01 12:48 | P.PN ---
Subjective Date of Service: 12/01/18 Chief Complaint: acute respiratory failure, acute on CKD Patient seen and examined at bedside. No family at bedside. Chart reviewed and case discussed with nursing staff and Dr. Alba. Patient admitted for anemia. Reports still feeling winded and tired this am. Reports improved abdominal pain. Headache has resolved. No changes in lower back pain, near dilaudid pain pump. No active bleeding noted. no other complaints. States all her doctors are at [facility]. Discussed case with Dr. Carrera ( [facility]) Review of Systems 10-point ROS is otherwise unremarkable Physical Examination - Vital Signs Temperature: 100 F Blood Pressure: 134/77 Pulse: 100 Respirations: 16 Pulse Ox (%): 96 - Physical Exam General: Alert, In no apparent distress, Oriented x3 HEENT: Atraumatic, PERRLA, EOMI Neck: Supple, JVD not distended Respiratory: Clear to auscultation bilaterally, Normal air movement Cardiovascular: Regular rate/rhythm, Normal S1 S2 Gastrointestinal: Normal bowel sounds, No tenderness Musculoskeletal: No tenderness Integumentary: No rashes Neurological: Normal speech, Normal tone, Normal affect - Studies Microbiology Data (last 24 hrs): 11/29/18 12:11 Clean Catch Urine Wilson Count - Final <10,000 CFU/ML. 11/29/18 12:11 Clean Catch Urine - Final Assessment And Plan - Current Problems (Diagnosis) (1) Elevated d-dimer Current Visit: Yes Status: Acute (2) Malnutrition Current Visit: Yes Status: Chronic Qualifiers: Malnutrition type: protein-calorie malnutrition Protein-calorie malnutrition severity: moderate Qualified Code(s): E44.0 - Moderate protein- calorie malnutrition (3) GERD (gastroesophageal reflux disease) Current Visit: No Status: Chronic Qualifiers: Esophagitis presence: esophagitis presence not specified Qualified Code(s) : K21.9 - Gastro-esophageal reflux disease without esophagitis (4) CAD (coronary artery disease) Current Visit: No Status: Chronic Qualifiers: Coronary Disease-Associated Artery/Lesion type: [place] artery [place] vs. transplanted heart: [place] heart Associated angina: without angina Qualified Code(s): I25.10 - Atherosclerotic heart disease of [place] coronary artery without angina pectoris (5) Hypothyroid Current Visit: No Status: Chronic Qualifiers: Hypothyroidism type: unspecified Qualified Code(s): E03.9 - Hypothyroidism , unspecified (6) Hypertension Current Visit: No Status: Chronic Qualifiers: Hypertension type: essential hypertension Qualified Code(s): I10 - Essential (primary) hypertension (7) Acute kidney injury superimposed on CKD Current Visit: Yes Status: Acute (8) Acute on chronic anemia Current Visit: Yes Status: Acute (9) Lung cancer Current Visit: Yes Status: Chronic Qualifiers: Laterality: unspecified laterality Lung location: unspecified part of lung Qualified Code(s): C34.90 - Malignant neoplasm of unspecified part of unspecified bronchus or lung (10) Thrombocytopenia Current Visit: Yes Status: Acute (11) Rheumatoid arthritis Current Visit: No Status: Acute Qualifiers: Rheumatoid arthritis location: unspecified site Rheumatoid factor presence : unspecified presence Qualified Code(s): M06.9 - Rheumatoid arthritis, unspecified (12) Abdominal pain Current Visit: Yes Status: Acute Qualifiers: Abdominal location: generalized Qualified Code(s): R10.84 - Generalized abdominal pain (13) Fever Current Visit: Yes Status: Acute Qualifiers: Fever type: unspecified Qualified Code(s): R50.9 - Fever, unspecified (14) Immunocompromised Current Visit: Yes Status: Acute (15) Sepsis Current Visit: Yes Status: Acute Qualifiers: Sepsis type: sepsis due to unspecified organism Qualified Code(s): A41.9 - Sepsis, unspecified organism - Plan Acute on chronic anemia Hgb continues to decrease slowly even after an appropriate response to transfusion. May be secondary to myelosupression. Hem/Onc consulted, case discussed with Dr. Alba. Recommendations appreciated. May need bone marrow biopsy which can be pursued as outpatient. Sepsis, unsure of source Fever, in a neutropenic patient Due to hx of immunocompromised status, continue IV zosyn pending Blood cultures, NG24 hrs UC/UA pending, MRI of lower back with no acute abnormalities. Continue to monitor closely. Flu negative Fever could also be secondary to her rheumatoid arthritis, though unsure. Abdominal pain Resolved this am. CT abdomen negative for anything acute. Denies any worse nausea than normal for her. States she did have a week of nausea/vomiting and diarrhea about 1.5 weeks ago which she attributed to her chemo session. Thrombocytopenia Likely secondary to recent chemo LDH normal, Retic count low, TTP ruled out; Haptoglobin and peripheral smear still pending. she is s/p 1 unit platelet transfusion this hospitalization. 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 She has had 6 treatments so far and she is s/p Right upper lung lobectomy. Last chemo session 11/06/2018. Her Oncologist is Dr. Carrera at [facility]. Discussed case with her. Transfer to [facility] pending bed availability. Acute kidney injury on CKD, stage 1 Continue IVF, continue to monitor. Creatinine stable this am, nephrology consulted. Recommendations appreciated. Elevated D-Dimer Likely 2/2 cancer; VQ scan low probability for PE Venous doppler negative for DVT. GERD Restart home protonix HTN stable, continue home medications. CAD Stable, no chest pain Continue current medications Hypothyroid Stable, continue home medications DVT Prophylaxis: Lovenox GI prophylaxis: Protonix, Home medication Diet: Regular Disposition: Will need to continue to monitor fevers/vitals signs closely as patient is sick and immunocompromised. If continues to worsen, may need to transfer to ICU. pending symptomatic improvement. Pending Transfer to [facility] as all of patient 's physicians are in [facility]. If Hgb remains stable and patient can get an appointment with her onc on tuesday, january discharge tuesday.
[2018-12-01] MEDS: PROMETHAZINE 25 MG/ML VIAL IV PRN (16:48)
--- NOTE | 2018-12-01 18:47 | PN ---
Date of Progress Note: 12/01/2018 Subjective: The patient with stage 4 lung carcinoma, was admitted for feeling weak, found to have ac krissy anemia with fever. Creatinine was 1.3 in September 2018 and elevated to 2.1. Cultures so far nega tive. The patient continued to spike fever today. No available labs for today. Hemoglobin is sligh tly dropping again, had blood transfusion yesterday. Development of lower extremity edema, reduce IV fluid rate to 50 mL/hour. Continue to monitor weight and I and O. Objective: Vital Signs: Temperature 100, pulse rate 100, blood pressure 137/77. General: Awake, alert, oriented x3, in mild distress. Chest: Clear to auscultation bilaterally. No rales or wheezes. Heart: Regular rate and rhythm. Normal S1, S2. Abdomen: Soft, nontender. Extremities: Trace edema. Medications: Folic acid, gabapentin, levothyroxine, metoprolol, normal saline 50 mL/hour, pantoprazo le, Zosyn, sertraline, sumatriptan, temazepam, and vancomycin. Assessment And Plan: Acute kidney injury, possibly acute tubular necrosis from chemotherapy versus s eptic glomerulonephritis. Creatinine is stable right now. Ultrasound, no hydronephrosis. UA, no pr otein or blood. Renal dose medication. Pancytopenia. Transfusion p.r.n. Continue with management as per Hematology. Thrombocytopenia. No acute bleeding. Lung cancer stage 4. The patient was on p alliative chemotherapy by [facility]. Monitor intermittent fever. Culture so far negative. Continue antibiotic. Overall poor prognosis. We will plan to transfer to [facility]. We will continue current ma nagement for now. POPPY/ANUPAM Voice ID: [id number] Report ID: [id number]
[2018-12-01] MEDS: VANCOMYCIN 1.75 GM in NA CHLORIDE 0.9% 500 ML IVPB SCH (20:07)
[2018-12-01] MEDS: GABAPENTIN 400 MG CAP PO SCH (20:07)
[2018-12-01] MEDS: TRAZODONE 50 MG TABLET PO PRN (20:09)
[2018-12-01] MEDS: TEMAZEPAM 15 MG CAP PO PRN (20:09)
[2018-12-02] MEDS: PIPER/TAZO/NS 3.375gm 3.375 GM/100 ML BAG IVPB SCH ×3 (00:36→17:03)
[2018-12-02] MEDS: PROMETHAZINE 25 MG/ML VIAL IV PRN ×4 (00:36→20:54)
[2018-12-02] MEDS: METOPROLOL XL 50 MG TAB PO SCH (05:17)
[2018-12-02] MEDS: LEVOTHYROXINE SOD 0.075 MG TAB PO SCH (05:19)
[2018-12-02 07:40] VITALS: BMI 44.1
[2018-12-02] MEDS: SERTRALINE HCL 100 MG TAB PO SCH (09:11)
[2018-12-02] MEDS: FOLIC ACID 1 MG TABLET PO SCH (09:11)
[2018-12-02] MEDS: PANTOPRAZOLE 40MG TABLET PO SCH (09:11)
[2018-12-02] MEDS: SUMATRIPTAN SUCCI 50 MG TAB PO PRN (09:21)
[2018-12-02] MEDS: ACETAMINOPHEN 500 MG TAB PO PRN (13:50)
[2018-12-02] MEDS: GABAPENTIN 400 MG CAP PO SCH (20:42)
[2018-12-02] MEDS: TEMAZEPAM 15 MG CAP PO PRN (20:54)
[2018-12-02] MEDS: TRAZODONE 50 MG TABLET PO PRN (20:54)
[2018-12-03] MEDS: PIPER/TAZO/NS 3.375gm 3.375 GM/100 ML BAG IVPB SCH ×3 (00:49→16:58)
[2018-12-03] MEDS: SUMATRIPTAN SUCCI 50 MG TAB PO PRN ×2 (03:55→21:10)
[2018-12-03] MEDS: NA CHLORIDE 0.9% 1,000 ML IV SCH (03:56)
--- NOTE | 2018-12-03 04:01 | PN ---
Date of Progress Note: 12/02/2018 Chief Complaint: Chronic kidney stage 3, accelerated by prerenal azotemia with possible tubular necr osis from chemotherapy versus septic glomerulonephritis. The patient has multiple medical problems including history of stage IV lung carcinoma. She is admit evelin for generalized weakness. She was found to have anemia and creatinine previously back in 2019 wa s 1.3 and during this admission was elevated to 2.1. Renal ultrasound did not show hydronephrosis. The patient received blood transfusion today. The patient denies new symptoms. Denies fever, chills , nausea, vomiting. Physical Examination: Vital Signs: Blood pressure is 137/70, heart rate 98, temperature is 100. Lungs: Clear to auscultation bilaterally. Heart: S1, S2. Abdomen: Soft, benign. Extremities: Slight edema. Impression And Plan: Acute kidney injury, possible acute tubular necrosis with questionable glomerul onephritis. Continue adequate hydration. Monitor renal function and check CK level to rule out rhab domyolysis. The ultrasound did not show hydronephrosis. Urinalysis did not show protein or blood. In this particular case, glomerulonephritis is less likely. The patient has multiple medical problems. She received blood transfusion for severe anemia. She morataya s pancytopenia secondary to recently done chemotherapy. The patient has intermittent fever. Recommend to check culture. Recently done cultures were negativ e. Continue antibiotics with broad-spectrum coverage. The patient is awaiting for transfer to [facility] for further onco logy care. COLT/ANUPAM Voice ID: [id number] Report ID: [id number]
[2018-12-03] MEDS: PROMETHAZINE 25 MG/ML VIAL IV PRN ×3 (04:11→21:14)
[2018-12-03] MEDS: LEVOTHYROXINE SOD 0.075 MG TAB PO SCH (05:46)
[2018-12-03] MEDS: METOPROLOL XL 50 MG TAB PO SCH (05:46)
[2018-12-03] MEDS: FOLIC ACID 1 MG TABLET PO SCH (08:53)
[2018-12-03] MEDS: SERTRALINE HCL 100 MG TAB PO SCH (08:53)
[2018-12-03] MEDS: PANTOPRAZOLE 40MG TABLET PO SCH (08:53)
[2018-12-03] MEDS: ONDANSETRON 4 MG/2 ML VIAL IV PRN ×2 (08:56→16:33)
[2018-12-03] MEDS: VANCOMYCIN 1.75 GM in NA CHLORIDE 0.9% 500 ML IVPB SCH (09:00)
[2018-12-03] MEDS: ACETAMINOPHEN 500 MG TAB PO PRN (09:09)
[2018-12-03 11:53] LABS: Absolute Lymphocytes (CBC) 0.7 K/uL (0.7-4.9); Absolute Monocytes 0.4 K/uL (0.1-1.3); Absolute Neutrophil 1.5 K/uL (1.8-8.0); Basophils % 0.1 % (0-1.3); Eosinophils % 4.3 % (0-4.4); Hematocrit 20.9 % (36.0-45.0); Lymphocytes % 25.9 % (15.3-44.8); MPV 10.2 fL (7.6-11.3); Monocytes % 15.2 % (3.3-12.3); RBC Red Blood Cell Count 2.38 M/uL (3.86-4.86)
[2018-12-03] MEDS: ACETAMIN/CAFFEINE/BUTALB TAB PO PRN ×2 (11:56→16:33)
[2018-12-03 12:04] LABS: Potassium 4.4 mmol/L (3.5-5.1)
[2018-12-03] MEDS: FUROSEMIDE 40 MG/4 ML VIAL IV SCH (16:21)
--- NOTE | 2018-12-03 17:14 | P.PN ---
Subjective Date of Service: 12/02/18 Chief Complaint: acute respiratory failure, acute on CKD Subjective: Improving Patient seen and examined at bedside. No family at bedside. Chart reviewed and case discussed with nursing staff and Dr. Alba. Patient admitted for anemia. Reports still feeling winded and tired this am though improved. Reports improved abdominal pain. Headache has resolved. No active bleeding noted. no other complaints. States all her doctors are at [facility]. Discussed case with Dr. Carrera ( [facility]) Review of Systems 10-point ROS is otherwise unremarkable Physical Examination - Vital Signs Temperature: 98.8 F Blood Pressure: 111/70 Pulse: 96 Respirations: 18 Pulse Ox (%): 92 - Physical Exam General: Alert, In no apparent distress HEENT: Atraumatic, PERRLA, EOMI Neck: Supple Respiratory: Clear to auscultation bilaterally, Normal air movement Cardiovascular: Regular rate/rhythm, Normal S1 S2 Assessment And Plan - Current Problems (Diagnosis) (1) Elevated d-dimer Current Visit: Yes Status: Acute (2) Malnutrition Current Visit: Yes Status: Chronic Qualifiers: Malnutrition type: protein-calorie malnutrition Protein-calorie malnutrition severity: moderate Qualified Code(s): E44.0 - Moderate protein- calorie malnutrition (3) GERD (gastroesophageal reflux disease) Current Visit: No Status: Chronic Qualifiers: Esophagitis presence: esophagitis presence not specified Qualified Code(s) : K21.9 - Gastro-esophageal reflux disease without esophagitis (4) CAD (coronary artery disease) Current Visit: No Status: Chronic Qualifiers: Coronary Disease-Associated Artery/Lesion type: [place] artery [place] vs. transplanted heart: [place] heart Associated angina: without angina Qualified Code(s): I25.10 - Atherosclerotic heart disease of [place] coronary artery without angina pectoris (5) Hypothyroid Current Visit: No Status: Chronic Qualifiers: Hypothyroidism type: unspecified Qualified Code(s): E03.9 - Hypothyroidism , unspecified (6) Hypertension Current Visit: No Status: Chronic Qualifiers: Hypertension type: essential hypertension Qualified Code(s): I10 - Essential (primary) hypertension (7) Acute kidney injury superimposed on CKD Current Visit: Yes Status: Acute (8) Acute on chronic anemia Current Visit: Yes Status: Acute (9) Lung cancer Current Visit: Yes Status: Chronic Qualifiers: Laterality: unspecified laterality Lung location: unspecified part of lung Qualified Code(s): C34.90 - Malignant neoplasm of unspecified part of unspecified bronchus or lung (10) Thrombocytopenia Current Visit: Yes Status: Acute (11) Rheumatoid arthritis Current Visit: No Status: Acute Qualifiers: Rheumatoid arthritis location: unspecified site Rheumatoid factor presence : unspecified presence Qualified Code(s): M06.9 - Rheumatoid arthritis, unspecified (12) Abdominal pain Current Visit: Yes Status: Acute Qualifiers: Abdominal location: generalized Qualified Code(s): R10.84 - Generalized abdominal pain (13) Fever Current Visit: Yes Status: Acute Qualifiers: Fever type: unspecified Qualified Code(s): R50.9 - Fever, unspecified (14) Immunocompromised Current Visit: Yes Status: Acute (15) Sepsis Current Visit: Yes Status: Acute Qualifiers: Sepsis type: sepsis due to unspecified organism Qualified Code(s): A41.9 - Sepsis, unspecified organism - Plan Acute on chronic anemia Hgb continues to decrease slowly even after an appropriate response to transfusion. May be secondary to myelosupression. Hem/Onc consulted, case discussed with Dr. Alba. Recommendations appreciated. May need bone marrow biopsy which can be pursued as outpatient vs inpatient if transfer successful. Sepsis, unsure of source Fever, in a neutropenic patient, fever curve improving. Due to hx of immunocompromised status, continue IV zosyn pending Blood cultures, NG24 hrs UC/UA pending, MRI of lower back with no acute abnormalities. Continue to monitor closely. Flu negative Fever could also be secondary to her rheumatoid arthritis, though unsure. Abdominal pain Resolved this am. CT abdomen negative for anything acute. Denies any worse nausea than normal for her. States she did have a week of nausea/vomiting and diarrhea about 1.5 weeks ago which she attributed to her chemo session. Thrombocytopenia Likely secondary to recent chemo LDH normal, Retic count low, TTP ruled out; Haptoglobin and peripheral smear still pending. she is s/p 1 unit platelet transfusion this hospitalization. 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 She has had 6 treatments so far and she is s/p Right upper lung lobectomy. Last chemo session 11/06/2018. Her Oncologist is Dr. Carrera at [facility]. Discussed case with her. Transfer to [facility] pending bed availability. Acute kidney injury on CKD, stage 1 Continue IVF, continue to monitor. Creatinine stable this am, nephrology consulted. Recommendations appreciated. Elevated D-Dimer Likely 2/2 cancer; VQ scan low probability for PE Venous doppler negative for DVT. GERD Restart home protonix HTN stable, continue home medications. CAD Stable, no chest pain Continue current medications Hypothyroid Stable, continue home medications DVT Prophylaxis: Lovenox GI prophylaxis: Protonix, Home medication Diet: Regular Disposition: Will need to continue to monitor fevers/vitals signs closely as patient is sick and immunocompromised. If continues to worsen, may need to transfer to ICU. pending symptomatic improvement. Pending Transfer to [facility] as all of patient 's physicians are in [facility]. If Hgb remains stable and patient can get an appointment with her onc on tuesday, january discharge tuesday.
--- NOTE | 2018-12-03 17:16 | P.PN ---
Subjective Date of Service: 12/03/18 Chief Complaint: acute respiratory failure, acute on CKD Subjective: No new changes, Tolerating diet, Ambulating, Improving Patient seen and examined at bedside. No family at bedside. Chart reviewed and case discussed with nursing staff and Dr. Alba. Patient admitted for anemia. Reports still feeling winded and tired this am though improved. Abdominal pain has resolved. Low grade temperature noted overnight. Having headache again this am. No active bleeding noted. no other complaints. States all her doctors are at [facility]. Discussed case with Dr. Carrera ( [facility]) Review of Systems 10-point ROS is otherwise unremarkable Physical Examination - Vital Signs Temperature: 98.8 F Blood Pressure: 111/70 Pulse: 96 Respirations: 18 Pulse Ox (%): 92 - Physical Exam General: Alert, In no apparent distress, Oriented x3 HEENT: Atraumatic, PERRLA, EOMI Neck: Supple, JVD not distended Respiratory: Clear to auscultation bilaterally, Normal air movement Cardiovascular: Regular rate/rhythm, Normal S1 S2 Gastrointestinal: Normal bowel sounds, No tenderness Musculoskeletal: No tenderness Integumentary: No rashes Neurological: Normal speech, Normal tone, Normal affect Lymphatics: No axilla or inguinal lymphadenopathy Assessment And Plan - Current Problems (Diagnosis) (1) Elevated d-dimer Current Visit: Yes Status: Acute (2) Malnutrition Current Visit: Yes Status: Chronic Qualifiers: Malnutrition type: protein-calorie malnutrition Protein-calorie malnutrition severity: moderate Qualified Code(s): E44.0 - Moderate protein- calorie malnutrition (3) GERD (gastroesophageal reflux disease) Current Visit: No Status: Chronic Qualifiers: Esophagitis presence: esophagitis presence not specified Qualified Code(s) : K21.9 - Gastro-esophageal reflux disease without esophagitis (4) CAD (coronary artery disease) Current Visit: No Status: Chronic Qualifiers: Coronary Disease-Associated Artery/Lesion type: [place] artery [place] vs. transplanted heart: [place] heart Associated angina: without angina Qualified Code(s): I25.10 - Atherosclerotic heart disease of [place] coronary artery without angina pectoris (5) Hypothyroid Current Visit: No Status: Chronic Qualifiers: Hypothyroidism type: unspecified Qualified Code(s): E03.9 - Hypothyroidism , unspecified (6) Hypertension Current Visit: No Status: Chronic Qualifiers: Hypertension type: essential hypertension Qualified Code(s): I10 - Essential (primary) hypertension (7) Acute kidney injury superimposed on CKD Current Visit: Yes Status: Acute (8) Acute on chronic anemia Current Visit: Yes Status: Acute (9) Lung cancer Current Visit: Yes Status: Chronic Qualifiers: Laterality: unspecified laterality Lung location: unspecified part of lung Qualified Code(s): C34.90 - Malignant neoplasm of unspecified part of unspecified bronchus or lung (10) Thrombocytopenia Current Visit: Yes Status: Acute (11) Rheumatoid arthritis Current Visit: No Status: Acute Qualifiers: Rheumatoid arthritis location: unspecified site Rheumatoid factor presence : unspecified presence Qualified Code(s): M06.9 - Rheumatoid arthritis, unspecified (12) Abdominal pain Current Visit: Yes Status: Acute Qualifiers: Abdominal location: generalized Qualified Code(s): R10.84 - Generalized abdominal pain (13) Fever Current Visit: Yes Status: Acute Qualifiers: Fever type: unspecified Qualified Code(s): R50.9 - Fever, unspecified (14) Immunocompromised Current Visit: Yes Status: Acute (15) Sepsis Current Visit: Yes Status: Acute Qualifiers: Sepsis type: sepsis due to unspecified organism Qualified Code(s): A41.9 - Sepsis, unspecified organism - Plan Acute on chronic anemia Hgb continues to decrease slowly even after an appropriate response to transfusion. May be secondary to myelosupression. Hem/Onc consulted, case discussed with Dr. Alba. Recommendations appreciated. May need bone marrow biopsy which can be pursued as outpatient vs inpatient if transfer successful. Sepsis, unsure of source Fever, in a neutropenic patient, fever curve improving. Due to hx of immunocompromised status, continue IV zosyn pending Blood cultures, NG24 hrs UC/UA pending, MRI of lower back with no acute abnormalities. Continue to monitor closely. Flu negative Fever could also be secondary to her rheumatoid arthritis, though unsure. Abdominal pain Resolved this am. CT abdomen negative for anything acute. Denies any worse nausea than normal for her. States she did have a week of nausea/vomiting and diarrhea about 1.5 weeks ago which she attributed to her chemo session. Thrombocytopenia Likely secondary to recent chemo LDH normal, Retic count low, TTP ruled out; Haptoglobin and peripheral smear still pending. she is s/p 1 unit platelet transfusion this hospitalization. 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 She has had 6 treatments so far and she is s/p Right upper lung lobectomy. Last chemo session 11/06/2018. Her Oncologist is Dr. Carrera at [facility]. Discussed case with her. Transfer to [facility] pending bed availability. Acute kidney injury on CKD, stage 1 Continue IVF, continue to monitor. Creatinine stable this am, nephrology consulted. Recommendations appreciated. Elevated D-Dimer Likely 2/2 cancer; VQ scan low probability for PE Venous doppler negative for DVT. GERD Restart home protonix HTN stable, continue home medications. CAD Stable, no chest pain Continue current medications Hypothyroid Stable, continue home medications DVT Prophylaxis: Lovenox GI prophylaxis: Protonix, Home medication Diet: Regular Disposition: Will need to continue to monitor fevers/vitals signs closely as patient is sick and immunocompromised. If continues to worsen, may need to transfer to ICU. pending symptomatic improvement. Pending Transfer to [facility] as all of patient '[facility]. If Hgb remains stable and patient can get an appointment with her onc on tuesday, may discharge tomorrow morning with follow up with Dr. Carrera in afternoon.
[2018-12-03] MEDS ORDERED: VANCOMYCIN 1.75 GM in NA CHLORIDE 0.9% 500 ML IVPB SCH (21:00)
[2018-12-03] MEDS: GABAPENTIN 400 MG CAP PO SCH (21:10)
[2018-12-03] MEDS: TEMAZEPAM 15 MG CAP PO PRN (21:11)
[2018-12-03] MEDS: TRAZODONE 50 MG TABLET PO PRN (21:11)
[2018-12-03] MEDS ORDERED: DIPHENOX/ATROP SULF 1 TAB PO PRN (21:30)
[2018-12-04] MEDS: PIPER/TAZO/NS 3.375gm 3.375 GM/100 ML BAG IVPB SCH ×2 (01:06→09:30)
--- NOTE | 2018-12-04 03:58 | PN ---
Date of Progress Note: 12/03/2018 Chief Complaint: Chronic kidney disease stage 3 accelerated by prerenal azotemia with possible tubul ar necrosis from chemotherapy. The patient has multiple medical problems including history of stage IV lung cancer, underwent chemot herapy at [facility] weeks ago. The patient had renal ultrasound, did not show renal obstructive uropathy. There is no hydronephrosis. The patient has chronic kidney disease stage 3. Previous cre atinine was 1.3 back in 2019 and this was her baseline. The patient developed severe anemia, receive d blood transfusion. Review of Systems: The patient is complaining of some generalized weakness, leg edema. Denies PND, orthopnea. Physical Examination: Lungs: Clear to auscultation bilaterally. Heart: S1, S2. Abdomen: Soft, benign. Extremities: Slight edema. Impression And Plan: 1.Acute kidney injury, possible acute tubular necrosis. The patient was on IV fluids. She develope d fluid overload, leg edema. The patient will have Lasix for edema control. IV fluids are on hold. 2.Lung cancer status post chemotherapy. The patient will follow up with Oncology. 3.Hypertension. Blood pressure controlled. 4.Fever. Recommend blood culture. Recently done cultures showed negative bacterial growth. The pa akira will continue adequate hydration to prevent renal hypoperfusion, although she will be started on Lasix to control leg edema. EB/MODL Voice ID: [id number] Report ID: [id number]
[2018-12-04 04:36] LABS: Potassium 4.3 mmol/L (3.5-5.1)
[2018-12-04] MEDS: LEVOTHYROXINE SOD 0.075 MG TAB PO SCH (06:00)
[2018-12-04] MEDS: ACETAMINOPHEN 500 MG TAB PO PRN (06:00)
[2018-12-04] MEDS: METOPROLOL XL 50 MG TAB PO SCH (06:01)
[2018-12-04] MEDS: PROMETHAZINE 25 MG TABLET PO PRN (06:26)
[2018-12-04 06:34] LABS: Absolute Lymphocytes (CBC) 0.9 K/uL (0.7-4.9); Absolute Monocytes 0.6 K/uL (0.1-1.3); Absolute Neutrophil 1.7 K/uL (1.8-8.0); Basophils % 0.1 % (0-1.3); Eosinophils % 4.5 % (0-4.4); Hematocrit 21.7 % (36.0-45.0); Lymphocytes % 26.9 % (15.3-44.8); MPV 10.9 fL (7.6-11.3); Monocytes % 17.4 % (3.3-12.3); RBC Red Blood Cell Count 2.49 M/uL (3.86-4.86)
[2018-12-04] MEDS: SUMATRIPTAN SUCCI 50 MG TAB PO PRN (09:29)
[2018-12-04] MEDS: SERTRALINE HCL 100 MG TAB PO SCH (09:29)
[2018-12-04] MEDS: PANTOPRAZOLE 40MG TABLET PO SCH (09:29)
[2018-12-04] MEDS: FUROSEMIDE 40 MG/4 ML VIAL IV SCH (09:30)
[2018-12-04] MEDS: FOLIC ACID 1 MG TABLET PO SCH (09:30)
[2018-12-04 09:50] VITALS: TEMP 99
--- NOTE | 2018-12-04 12:41 | P.DS ---
Admission Date: 11/29/18 Discharge Date: 12/04/18 Disposition: ROUTINE DISCHARGE Discharge Condition: FAIR Reason for Admission: acute respiratory failure, acute on CKD Consultations: Dr. Alba, Oncology. Procedures: PRBC transfusion: 4 Units Platelet transfusion: 1 unit - Problems (1) Elevated d-dimer Current Visit: Yes Status: Acute (2) Malnutrition Current Visit: Yes Status: Chronic Qualifiers: Malnutrition type: protein-calorie malnutrition Protein-calorie malnutrition severity: moderate Qualified Code(s): E44.0 - Moderate protein- calorie malnutrition (3) GERD (gastroesophageal reflux disease) Current Visit: No Status: Chronic Qualifiers: Esophagitis presence: esophagitis presence not specified Qualified Code(s) : K21.9 - Gastro-esophageal reflux disease without esophagitis (4) CAD (coronary artery disease) Current Visit: No Status: Chronic Qualifiers: Coronary Disease-Associated Artery/Lesion type: [place] artery [place] vs. transplanted heart: [place] heart Associated angina: without angina Qualified Code(s): I25.10 - Atherosclerotic heart disease of [place] coronary artery without angina pectoris (5) Hypothyroid Current Visit: No Status: Chronic Qualifiers: Hypothyroidism type: unspecified Qualified Code(s): E03.9 - Hypothyroidism , unspecified (6) Hypertension Current Visit: No Status: Chronic Qualifiers: Hypertension type: essential hypertension Qualified Code(s): I10 - Essential (primary) hypertension (7) Acute kidney injury superimposed on CKD Current Visit: Yes Status: Acute (8) Acute on chronic anemia Current Visit: Yes Status: Acute (9) Lung cancer Current Visit: Yes Status: Chronic Qualifiers: Laterality: unspecified laterality Lung location: unspecified part of lung Qualified Code(s): C34.90 - Malignant neoplasm of unspecified part of unspecified bronchus or lung (10) Thrombocytopenia Current Visit: Yes Status: Acute (11) Rheumatoid arthritis Current Visit: No Status: Acute Qualifiers: Rheumatoid arthritis location: unspecified site Rheumatoid factor presence : unspecified presence Qualified Code(s): M06.9 - Rheumatoid arthritis, unspecified (12) Abdominal pain Current Visit: Yes Status: Acute Qualifiers: Abdominal location: generalized Qualified Code(s): R10.84 - Generalized abdominal pain (13) Fever Current Visit: Yes Status: Acute Qualifiers: Fever type: unspecified Qualified Code(s): R50.9 - Fever, unspecified (14) Immunocompromised Current Visit: Yes Status: Acute (15) Sepsis Current Visit: Yes Status: Acute Qualifiers: Sepsis type: sepsis due to unspecified organism Qualified Code(s): A41.9 - Sepsis, unspecified organism Brief History of Present Illness: Ms Lindsay is a 53 years old woman with history CAD, HTN, RA, Hypothyroidism, lung cancer currently on chemotherapy, last round done last week. She came to ER complaining of progressive SOB associated with dizziness, specially with light activity. She denied any fever or chills, no nasuea. vomiting or diarrhea. Her lab work is remarkable for Hgb 7.6 mg/dl. Subsequent Hgb shows significant decrease 4.7 mg/dl. It was repeated and also came low 4.4 mg/dl, no signs of active bleeding, paletelet 19K, creatinine more elevated than baseline. CXR shows no acute abnormalities. At arrival her O2 sat was about 90% on RA. ER provider discussed the case with oncologist physician from [facility], where she get her oncology follow up, who recommend to admit the patient for observation in our facility, and transfer the patient when they have bed availability. Hospital Course: Pancytopenia Retic ct and RBC indicative of a myelosuppressed marrow. Counts usually expected to recuperate within 3 weeks post chemotherapy but she still remains severely pancytopenic. anemia: myelosuppression/ element of anemia due to neoplasm/neoplastic chemotherapy/ anemia of chronic inflammation/ kidney diesease. Patient's hemoglobin on admission 7 which decreased to 4.4 (repeat Hgb also 4). She was transfused a total of 4 PRBCs Likely secondary to severe myelosuppression (from chemotherapy in a background of chronic autoimmune disease). Stool occult blood negative. leucopenia: Due to autoimmune disease/ myelosuppression. ANC remained adequate. No c-GSF given throughout the stay. Thrombocytopenia: TTP has been ruled out. She does not appear to be in DIC. No evidence of microangiopathy. Low probability of PAUL. She did not have an adequate response to one unit platelets. It is possible she might have an autoimmune component to this as well. She remained asymptomatic with no reported bleeding. Sepsis, unsure of source. Resolved Fever, in a neutropenic patient, fever curve improving. Though continues to have low grade fever. She was given IV vancomycin and IV zosyn. Blood cultures remained negative x 2 (total of 4 sets), Urine culture negative x2, Influenza negative, MRI of abdomen negative for any acute abnormalities. CT scan of the abdomen/pelvis/lungs negative for anything acute. Fever could also be secondary to her rheumatoid arthritis, though unsure. 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 She has had 6 treatments so far and she is s/p Right upper lung lobectomy. Last chemo session 11/06/2018. Her Oncologist is Dr. Carrera at [facility]. Discussed case with her. Transfer to [facility] pending bed availability. As of this morning, no bed available at [facility]. Acute kidney injury on CKD, stage 1 Creatinine continues to be elevated but stable. Renal ultrasound was done, without any evidence of chronic renal disease. Nephrology was consulted here. She was diuresied with IV lasix. She will need continued outpatient follow up with Nephrology. Elevated D-Dimer Likely 2/2 cancer; VQ scan was done, which was low probability for PE Venous doppler negative for DVT. She otherwise remained stable throughout the stay. Prior to discharge, she was AAOx3, in mild distress due to Headache. Vital signs were remarkable for HR in high 90's low 100's. Vital signs were otherwise stable. She was ambulating without concerns, tolerating PO. Case was discussed with Dr. Alba and Dr. Carrera (Oncology from [facility]). She was cleared for discharge with outpatient follow up with Dr. Carrera on 2018 at 11 am. Information for Nephrology was provided to patient. She was encouraged to follow up with Rheumatology as well. Vital Signs/Physical Exam: Temp Pulse Resp BP Pulse Ox 99.0 F 109 H 18 125/69 91 12/04/18 08:00 12/04/18 09:30 12/04/18 08:00 12/04/18 09:30 12/04/18 08:00 General: Alert, In no apparent distress, Oriented x3 HEENT: Atraumatic, PERRLA, EOMI Neck: Supple, JVD not distended Respiratory: Clear to auscultation bilaterally, Normal air movement Cardiovascular: Regular rate/rhythm, Normal S1 S2 Gastrointestinal: Normal bowel sounds, No tenderness Musculoskeletal: No tenderness Integumentary: No rashes Neurological: Normal speech, Normal tone, Normal affect Lymphatics: No axilla or inguinal lymphadenopathy Laboratory Data at Discharge: WBC 3.2 K/uL (4.3-10.9) L D 12/04/18 04:07 Hgb 7.3 g/dL (12.0-15.0) L* 12/04/18 04:07 Hct 21.7 % (36.0-45.0) L 12/04/18 04:07 Plt Count 75 K/uL (152-406) L D 12/04/18 04:07 PT 12.4 SECONDS (9.5-12.5) 11/29/18 18:50 INR 1.05 11/29/18 18:50 APTT 32.9 SECONDS (24.3-36.9) 11/29/18 18:50 Sodium 144 mmol/L (136-145) 12/04/18 04:07 Potassium 4.3 mmol/L (3.5-5.1) 12/04/18 04:07 BUN 36 mg/dL (7-18) H 12/04/18 04:07 Creatinine 2.46 mg/dL (0.55-1.3) H 12/04/18 04:07 Glucose 120 mg/dL (74-106) H 12/04/18 04:07 Uric Acid 3.5 mg/dL (2.6-6.0) 11/29/18 13:50 Phosphorus 3.0 mg/dL (2.5-4.9) 11/29/18 06:35 Magnesium 2.1 mg/dL (1.8-2.4) D 11/29/18 13:55 Total Bilirubin 0.2 mg/dL (0.2-1.0) 11/29/18 06:35 AST 27 U/L (15-37) 11/29/18 06:35 ALT 37 U/L (12-78) 11/29/18 06:35 Alkaline Phosphatase 74 U/L (45-117) 11/29/18 06:35 Lipase 170 U/L (73-393) 11/26/18 18:55 Home Medications: Furosemide 20 - 40 mg PO DAILYPRN PRN 07/02/16 Levothyroxine Sodium 75 mcg PO DAILY 07/02/16 Methyl Salicylate/Menthol [Arthritis Hot Pain Relief Crm] 2 tab PO BEDTIME PRN PRN 07/02/16 Ondansetron HCl 4 mg PO BIDP PRN 07/02/16 Sertraline HCl 100 mg PO DAILY 07/02/16 Tizanidine [Zanaflex*] 2 mg PO DAILY 07/02/16 Metoprolol Succinate [Toprol Xl*] 50 mg PO [id number] #30 tab 07/03/16 Diphenox/Atropine [Lomotil*] 1 tab PO TIDP PRN 11/27/18 Folic Acid 1 mg PO DAILY 11/27/18 Gabapentin [Neurontin] 800 mg PO BEDTIME 11/27/18 Pantoprazole [Protonix Tab*] 40 mg PO DAILY 11/27/18 Potassium Oral Tab [Klor-Con 10 mEq Tab*] 20 meq PO DAILYPRN PRN 11/27/18 Promethazine Tab [Phenergan*] 25 - 50 mg PO Q6HP PRN 11/27/18 Sumatriptan [Imitrex*] 50 mg PO PRN PRN 11/27/18 Temazepam 30 mg PO BEDTIME 11/27/18 Trazodone HCl [Desyrel] 100 mg PO BEDTIME 11/27/18 Patient Discharge Instructions: Pancytopenia. Retic ct and RBC indicative of a myelosuppressed marrow. Counts usually expected to recuperate within 3 weeks post chemotherapy but she still remains severely pancytopenic. . anemia: myelosuppression/ element of anemia due to neoplasm/neoplastic chemotherapy/ anemia of chronic inflammation/ kidney diesease. Patient's hemoglobin on admission 7 which decreased to 4.4 (repeat Hgb also 4). She was transfused a total of 4 PRBCs. Likely secondary to severe myelosuppression (from chemotherapy in a background of chronic autoimmune disease). Stool occult blood negative. leucopenia: Due to autoimmune disease/ myelosuppression. ANC remained adequate. No c-GSF given throughout the stay. Thrombocytopenia: TTP has been ruled out. She does not appear to be in DIC. No evidence of microangiopathy. Low probability of PAUL. She did not have an adequate response to one unit platelets. It is possible she might have an autoimmune component to this as well. She remained asymptomatic with no reported bleeding. Platelet counts improved to 75 prior to discharge. Sepsis, unsure of source. Resolved. Fever, in a neutropenic patient, fever curve improving. Though continues to have low grade fever. She was given IV vancomycin and IV zosyn. Blood cultures remained negative x 2 (total of 4 sets), Urine culture negative x2, Influenza negative, MRI of abdomen negative for any acute abnormalities. CT scan of the abdomen/pelvis/lungs negative for anything acute. Fever could also be secondary to her rheumatoid arthritis, though unsure. 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 Lung cancer, stage 4. Adenocarcinoma. Non small cell lung carcinoma. Patient currently getting chemotherapy treatment with Alimpta. She has had 6 treatments so far and she is s/p Right upper lung lobectomy. Last chemo session 11/06/2018. Her Oncologist is Dr. Carrera at [facility]. Discussed case with her. Transfer to [facility] pending bed availability. As of this morning, no bed available at [facility]. Acute kidney injury on CKD, stage 1. Creatinine continues to be elevated but stable. Renal ultrasound was done, without any evidence of chronic renal disease. Nephrology was consulted here. She was diuresied with IV lasix. She will need continued outpatient follow up with Nephrology. Elevated D- Dimer. Likely 2/2 cancer; VQ scan was done, which was low probability for PE. Venous doppler negative for DVT. Diet: Regular Activity: Ad moe Followup: Jeanmarie Mensah MD [Primary Care Provider] - Kathryn Strickland MD [COURTESY - CAN ADMIT] - Time spent managing pt's care (in minutes): 55
[2018-12-04 12:47] VITALS: O2SAT 96
[2018-12-04] MEDS: ACETAMIN/CAFFEINE/BUTALB TAB PO PRN ×2 (13:54→18:33)
[2018-12-04] MEDS: ONDANSETRON 4 MG/2 ML VIAL IV PRN (14:39)
[2018-12-04 17:30] VITALS: BP 110/60
--- NOTE | 2018-12-05 03:06 | PN ---
Date of Progress Note: 12/04/2018 Chief Complaint: Chronic kidney disease stage 3, accelerated by prerenal azotemia with tubular necro sis, status post chemotherapy. The patient on an undergoing treatment with IV fluids, although she d eveloped legs edema and fluids were stopped. The patient received Lasix and legs edema has improved. The patient has multiple medical problems including history of stage IV lung cancer, underwent chem otherapy at [facility] in [place]. She had a renal ultrasound, which did not meche w obstructive uropathy. The patient has chronic kidney disease stage 3. Previous creatinine was 1.3 back in 2019, and this was her related to baseline. The patient developed severe anemia, received b lood transfusion. The patient is feeling better today. Review of Systems: Denies fever or chills. Physical Examination: LUNGS: Few crackles at bases. HEART: S1 and S2. ABDOMEN: Soft and benign. EXTREMITIES: Minimal edema. Impression And Plan: 1.Acute kidney injury, possible acute tubular necrosis. The patient will continue adequate hydratio n by mouth. Lasix is stopped, edema has improved. 2.Lung cancer. The patient will be transferred to [facility] for further oncology care. 3.Hypertension, blood pressure controlled. Continue current treatment. 4.Fever. Blood culture was done and pending. 5.The patient received blood transfusion for severe anemia. Continue adequate hydration by mouth, a nd avoid nonsteroidal anti- inflammatory medication. Renal function is plateauing. Electrolytes are stable. EB/MODL Voice ID: [id number] Report ID: [id number]
== END 2018-12-04 18:50 | disposition home or self-care (01) | DRG 811 ==
LOC: ER 18:29 → ERHOLD 22:23 → 4TH 11-27 01:05 → OBSVTOIN 11-29 13:49
PROVIDERS: ADMIT Internal Medicine; ATTEND Family Medicine
PROC: 30233R1 Transfusion of Nonautologous Platelets into Peripheral Vein, Percutaneous Approach (ICD-10-PCS; principal; 2018-11-27)
PROC: 30233N1 Transfusion of Nonautologous Red Blood Cells into Peripheral Vein, Percutaneous Approach (ICD-10-PCS; 2018-11-27)
DX: D64.81 Anemia due to antineoplastic chemotherapy (principal); J96.01 Acute respiratory failure with hypoxia; N17.0 Acute kidney failure with tubular necrosis; A41.9 Sepsis, unspecified organism; C34.90 Malignant neoplasm of unspecified part of unspecified bronchus or lung; N17.9 Acute kidney failure, unspecified; E44.0 Moderate protein-calorie malnutrition; Z68.41 Body mass index [BMI] 40.0-44.9, adult; D61.818 Other pancytopenia; K21.9 Gastro-esophageal reflux disease without esophagitis; M06.9 Rheumatoid arthritis, unspecified; E03.9 Hypothyroidism, unspecified; I25.10 Atherosclerotic heart disease of native coronary artery without angina pectoris; Z87.891 Personal history of nicotine dependence; T45.1X5A Adverse effect of antineoplastic and immunosuppressive drugs, initial encounter; Y92.019 Unspecified place in single-family (private) house as the place of occurrence of the external cause; R79.1 Abnormal coagulation profile; I12.9 Hypertensive chronic kidney disease with stage 1 through stage 4 chronic kidney disease, or unspecified chronic kidney disease; D72.819 Decreased white blood cell count, unspecified; D70.9 Neutropenia, unspecified; I25.2 Old myocardial infarction; E88.09 Other disorders of plasma-protein metabolism, not elsewhere classified; N28.1 Cyst of kidney, acquired; D63.1 Anemia in chronic kidney disease; N18.3 Chronic kidney disease, stage 3 (moderate)
CPT/HCPCS: 36415; 36430; 71045; 71046; 71250; 72148; 74176; 76770; 78582; 80048; 80053; 80076; 80202; 81003; 81015; 82272; 82274; 82550; 82553; 82565; 82607; 82728; 82746; 82962; 83010; 83540; 83605; 83615; 83690; 83735; 84100; 84145; 84466; 84484; 84550; 85014; 85018; 85025; 85044; 85379; 85384; 85610; 85730; 86850; 86880; 86900; 86901; 87040; 87086; 87088; 87804; 93005; 93970; 94760; 96365; 96366; 96375; 97162; 99285; A9540; A9558; J1940; J2405; J2543; J2550; J3475; J7030; P9037; P9040

== ENCOUNTER 2019-01-27 15:32 | Observation (INO) | payer OTHER ==
--- NOTE | 2019-01-27 16:43 | RAD REPORT ---
EXAM DESCRIPTION: RAD - Chest Single View - 01/27/2019 4:37 pm CLINICAL HISTORY: CHEST PAIN Chest pain. COMPARISON: Chest Pa And Lat (2 Views) dated 11/30/2018; Chest Single View dated 11/26/2018; Chest Sin gle View dated 08/24/2018; Chest Pa And Lat (2 Views) dated 12/14/2017 FINDINGS: Portable technique limits examination quality. The lungs are grossly clear. The heart is normal in size. Right-sided port catheter tip in the SVC. IMPRESSION: No acute intrathoracic process suspected.
[2019-01-27 16:58] LABS: Absolute Lymphocytes (CBC) 1.2 K/uL (0.7-4.9); Absolute Monocytes 0.5 K/uL (0.1-1.3); Absolute Neutrophil 4.2 K/uL (1.8-8.0); Basophils % 0.2 % (0-1.3); Eosinophils % 0.7 % (0-4.4); Hematocrit 30.1 % (36.0-45.0); Lymphocytes % 20.2 % (15.3-44.8); Monocytes % 8.9 % (3.3-12.3); Protime INR 1.05; RBC Red Blood Cell Count 3.28 M/uL (3.86-4.86)
[2019-01-27 17:14] LABS: ALT/SGPT 13 U/L (12-78); AST/SGOT 19 U/L (15-37); Albumin 3.2 g/dL (3.4-5.0); Alkaline Phosphatase 77 U/L (45-117); BUN Blood Urea Nitrogen 26 mg/dL (7-18); Bicarbonate 25 mmol/L (21-32); Bilirubin Direct < 0.1 mg/dL (0-0.2); Bilirubin Total 0.3 mg/dL (0.2-1.0); Glucose Level 104 mg/dL (74-106); Lipase 108 U/L (73-393); Magnesium 2.4 mg/dL (1.8-2.4); NT PRO-BNP 935 pg/mL (<125); Potassium 3.5 mmol/L (3.5-5.1); Protein, Total 8.5 g/dL (6.4-8.2); Sodium Level 143 mmol/L (136-145); Troponin (Emerg Dept Use Only) < 0.02 ng/mL (0.0-0.045)
[2019-01-27] MEDS ORDERED: NA CHLORIDE 0.9% 1,000 ML ONE (17:23)
[2019-01-27 17:24] LABS: Urine Blood TRACE (NEG); Urine Glucose NEGATIVE (NEG); Urine Protein 2+ (NEG); Urine pH 6.5 (5.0-7.0)
--- NOTE | 2019-01-27 17:26 | EDPHYS ---
Physician Documentation [facility] Name: Anisha Lindsay Age: 53 yrs Sex: Female : 1965 Arrival Date: 01/27/2019 Time: 15:36 Bed 26 Private MD: Ninfa Mensah R ED Physician Андрей Velasco HPI: 01/27 17:10 This 53 yrs old Female presents to ER via Wheelchair with complaints of Chest eloy Pain. 17:10 The patient or guardian reports chest pain that is located primarily in the anterior eloy chest wall, bilaterally. Onset: this morning. The pain radiates to back. Associated signs and symptoms: The patient has no apparent associated signs or symptoms. The chest pain is described as a heaviness, a pressure. Duration: The patient or guardian reports multiple episodes, with no pattern. Modifying factors: The symptoms are alleviated by nothing. the symptoms are aggravated by nothing. Severity of pain: At its worst the pain was moderate in the emergency department the pain is unchanged. The patient has experienced similar episodes in the past, several times. 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 - Social history:: Smoking status: Patient/guardian denies using tobacco. - Ebola Screening: : No symptoms or risks identified at this time. - Family history:: not pertinent. ROS: 17:10 Constitutional: Negative for fever, chills, and weight loss, Eyes: Negative for injury, eloy pain, redness, and discharge, ENT: Negative for injury, pain, and discharge, Neck: Negative for injury, pain, and swelling, Respiratory: Negative for shortness of breath, cough, wheezing, and pleuritic chest pain, Abdomen/GI: Negative for abdominal pain, nausea, vomiting, diarrhea, and constipation, Back: Negative for injury and pain, : Negative for injury, bleeding, discharge, and swelling, MS/Extremity: Negative for injury and deformity, Skin: Negative for injury, rash, and discoloration, Neuro: Negative for headache, weakness, numbness, tingling, and seizure. 17:10 Cardiovascular: Positive for chest pain. 17:10 Neuro: Positive for headache. Exam: 17:10 Constitutional: This is a well developed, well nourished patient who is awake, alert, eloy and in no acute distress. Head/Face: Normocephalic, atraumatic. Eyes: Pupils equal round and reactive to light, extra-ocular motions intact. Lids and lashes normal. Conjunctiva and sclera are non-icteric and not injected. Cornea within normal limits. Periorbital areas with no swelling, redness, or edema. ENT: Nares patent. No nasal discharge, no septal abnormalities noted. Tympanic membranes are normal and external auditory canals are clear. Oropharynx with no redness, swelling, or masses, exudates, or evidence of obstruction, uvula midline. Mucous membranes moist. Neck: Trachea midline, no thyromegaly or masses palpated, and no cervical lymphadenopathy. Supple, full range of motion without nuchal rigidity, or vertebral point tenderness. No Meningismus. Chest/axilla: Normal chest wall appearance and motion. Nontender with no deformity. No lesions are appreciated. Cardiovascular: Regular rate and rhythm with a normal S1 and S2. No gallops, murmurs, or rubs. Normal PMI, no JVD. No pulse deficits. Respiratory: Lungs have equal breath sounds bilaterally, clear to auscultation and percussion. No rales, rhonchi or wheezes noted. No increased work of breathing, no retractions or nasal flaring. Abdomen/GI: Soft, non-tender, with normal bowel sounds. No distension or tympany. No guarding or rebound. No evidence of tenderness throughout. Back: No spinal tenderness. No costovertebral tenderness. Full range of motion. Skin: Warm, dry with normal turgor. Normal color with no rashes, no lesions, and no evidence of cellulitis. MS/ Extremity: Pulses equal, no cyanosis. Neurovascular intact. Full, normal range of motion. Neuro: Awake and alert, GCS 15, oriented to person, place, time, and situation. Cranial nerves II-XII grossly intact. Motor strength 5/5 in all extremities. Sensory grossly intact. Cerebellar exam normal. Normal gait. Psych: Awake, alert, with orientation to person, place and time. Behavior, mood, and affect are within normal limits. 17:10 Chest/axilla: Inspection: normal, Palpation: is normal, no acute changes, Axilla: are normal, no acute changes, abscess, is not appreciated, cellulitis, lymphadenopathy, is not appreciated. 17:10 Respiratory: Exam negative for 17:10 Musculoskeletal/extremity: Extremities: all appear grossly normal, with no appreciated pain with palpation, DVT Exam: No signs of deep vein thrombosis. no pain, no swelling, no tenderness, negative Homans' sign noted on exam, no appreciated bluish discoloration, no erythema, no increased warmth. Vital Signs: 15:58 BP 180 / 106; Pulse 109; Resp 16; Temp 97.8; Pulse Ox 98% on R/A; Weight 99.79 kg; la1 Height 5 ft. 2 in. (157.48 cm); Pain 7/10; 17:43 BP 149 / 105; Pulse 85; Resp 18; Temp 98; Pulse Ox 97% on R/A; Pain 4/10; mg2 19:25 BP 125 / 84; Pulse 75; Resp 18; Temp 98(O); Pulse Ox 98% on R/A; Pain 0/10; mg2 15:58 Body Mass Index 40.24 (99.79 kg, 157.48 cm) ok1 MDM: 16:04 Patient medically screened. [facility] 17:12 Data reviewed: vital signs, nurses notes, lab test result(s), EKG, radiologic studies, [facility] plain films. 01/27 16:07 Order name: Basic Metabolic Panel [facility] 01/27 16:07 Order name: CBC with Diff [facility] 01/27 16:07 Order name: LFT's; Complete Time: 17:16 [facility] 01/27 16:07 Order name: Magnesium; Complete Time: 17:16 [facility] 01/27 16:07 Order name: NT PRO-BNP; Complete Time: 17:16 [facility] 01/27 16:07 Order name: PT-INR; Complete Time: 17:14 [facility] 01/27 16:07 Order name: Troponin (emerg Dept Use Only); Complete Time: 17:16 [facility] 01/27 16:07 Order name: Lipase; Complete Time: 17:16 [facility] 01/27 16:07 Order name: Urine Culture [facility] 01/27 16:07 Order name: Basic Metabolic Panel; Complete Time: 17:16 [facility] 01/27 16:07 Order name: CBC with Automated Diff; Complete Time: 17:14 [facility] 01/27 17:13 Order name: Urine Dipstick--Ancillary (enter results); Complete Time: 18:27 01/27 17:43 Order name: Troponin I [facility] 01/27 17:43 Order name: Troponin I [facility] 01/27 16:02 Order name: EKG - Nurse/Tech; Complete Time: 16:12 [facility] 01/27 16:07 Order name: XRAY Chest (1 view); Complete Time: 16:58 [facility] 01/27 16:07 Order name: EKG; Complete Time: 16:08 [facility] 01/27 16:07 Order name: Cardiac monitoring; Complete Time: 17:02 [facility] 01/27 17:11 Order name: CT Head Brain wo Cont; Complete Time: 18:27 [facility] 01/27 17:43 Order name: CONS Physician Consult [facility] 01/27 17:43 Order name: Heart Healthy [facility] 01/27 17:43 Order name: Troponin I [facility] 01/27 17:44 Order name: Troponin I [facility] 01/27 16:07 Order name: IV Saline Lock; Complete Time: 17:02 [facility] 01/27 16:07 Order name: Labs collected and sent; Complete Time: 16:16 [facility] 01/27 16:07 Order name: O2 Per Protocol; Complete Time: 17:02 [facility] 01/27 16:07 Order name: O2 Sat Monitoring; Complete Time: 17:02 [facility] 01/27 16:07 Order name: Urine Dipstick-Ancillary (obtain specimen); Complete Time: 17:19 [facility] 01/27 16:58 Order name: EKG - Nurse/Tech; Complete Time: 17:17 mg2 Administered Medications: 17:18 Drug: NS 0.9% 1000 ml Route: IV; Rate: 125 ml/hr; Site: Port-a-cath; mg2 19:25 Follow up: Response: No adverse reaction; IV Status: Infusion continued upon admission mg2 17:40 Drug: morphine 4 mg Route: IVP; Site: Port-a-cath; mg2 19:24 Follow up: Response: No adverse reaction; Marked relief of symptoms mg2 17:40 Drug: Zofran 4 mg Route: IVP; Site: Port-a-cath; mg2 19:24 Follow up: Response: No adverse reaction; Marked relief of symptoms mg2 17:40 Drug: Pepcid 20 mg Route: IVP; Site: Port-a-cath; mg2 19:23 Follow up: Response: No adverse reaction; Marked relief of symptoms mg2 17:40 Drug: Lopressor 25 mg Route: PO; mg2 19:21 Follow up: Response: No adverse reaction mg2 18:13 Drug: Aspirin Chewable Tablet 162 mg Route: PO; mg2 19:24 Follow up: Response: No adverse reaction; Marked relief of symptoms mg2 18:13 Drug: Lovenox 100 mg Route: Sub-Q; Site: left lower abdomen; mg2 19:23 Follow up: Response: No adverse reaction mg2 Disposition: 01/27/19 17:24 Hospitalization ordered by Tyra Spears for Observation. Preliminary diagnosis are Other chest pain, Essential (primary) hypertension, Unspecified kidney failure - chronic. - Bed requested for Telemetry/MedSurg (observation). - Status is Observation. mg2 - Condition is Fair. - Problem is new. - Symptoms have improved. UTI on Admission? No Signatures: Dispatcher [employer] EDStephanie Medellin RN RN dw Андрей Velasco MD MD cha Attema, Lee, RN RN la1 Chris Villalta RN RN mg2 Corrections: (The following items were deleted from the chart) 18:29 17:24 Hospitalization Ordered by Tyra Spears MD for Observation. Preliminary eloy diagnosis is Other chest pain; Essential (primary) hypertension. Bed requested for Telemetry/MedSurg (observation). Status is Observation. Condition is Fair. Problem is new. Symptoms have improved. UTI on Admission? No. eloy 18:39 18:29 01/27/2019 17:24 Hospitalization Ordered by Tyra Spears MD for Observation. dw Preliminary diagnosis is Other chest pain; Essential (primary) hypertension; Unspecified kidney failure - chronic. Bed requested for Telemetry/MedSurg (observation). Status is Observation. Condition is Fair. Problem is new. Symptoms have improved. UTI on Admission? No. eloy 19:47 18:39 01/27/2019 17:24 Hospitalization Ordered by Tyra Spears MD for Observation. mg2 Preliminary diagnosis is Other chest pain; Essential (primary) hypertension; Unspecified kidney failure - chronic. Bed requested for Telemetry/MedSurg (observation). Status is Observation. Condition is Fair. Problem is new. Symptoms have improved. UTI on Admission? No. dw
--- NOTE | 2019-01-27 17:26 | ER ---
Nurse's Notes [facility] Name: Anisha Lindsay Age: 53 yrs Sex: Female : 1965 Arrival Date: 01/27/2019 Time: 15:36 Bed 26 Private MD: Ninfa Mensah R Diagnosis: Other chest pain;Essential (primary) hypertension;Unspecified kidney failure-chronic Presentation: 01/27 15:57 Presenting complaint: Patient states: I have been having chest pain for the last few la1 hours that radiates to my back. Pt also reports hx of of lung CA. Transition of care: patient was not received from another setting of care. Onset of symptoms was January 27, 2019. Risk Assessment: Do you want to hurt yourself or someone else? Patient reports no desire to harm self or others. Initial Sepsis Screen: Does the patient meet any 2 criteria? No. Patient's initial sepsis screen is negative. Does the patient have a suspected source of infection? No. Patient's initial sepsis screen is negative. Care prior to arrival: None. 15:57 Method Of Arrival: Wheelchair la1 15:57 Acuity: CHEN 2 la1 FLOOR SPACE ALLOCATOR: 19:34 lmp unknown mg2 Historical: - Allergies: 15:58 Celebrex; la1 15:58 Demerol; la1 15:58 Adhesives; la1 - PMHx: 15:58 CHF; Hypertension; Hypothyroidism; Myocardial infarction; Rheumatoid Arthritis; Stage 4 la1 Lung Cencer- currently on Chemo; - Immunization history:: Adult Immunizations up to date. - Social history:: Smoking status: Patient/guardian denies using tobacco. - Ebola Screening: : No symptoms or risks identified at this time. - Family history:: not pertinent. Screenin:42 Abuse screen: Denies threats or abuse. Denies injuries from another. Nutritional mg2 screening: No deficits noted. Tuberculosis screening: No symptoms or risk factors identified. Fall Risk IV access (20 points). Assessment: 17:40 General: Appears in no apparent distress. comfortable, Behavior is calm, cooperative. mg2 Pain: Complains of pain in chest Pain radiates to back Pain currently is 4 out of 10 on a pain scale. Quality of pain is described as aching, Pain began gradually, this morning Is continuous. Neuro: Level of Consciousness is awake, alert, obeys commands, Oriented to person, place, time, situation. Cardiovascular: Capillary refill < 3 seconds Patient's skin is warm and dry. Respiratory: Airway is patent Respiratory effort is even, unlabored, Respiratory pattern is regular, symmetrical. GI: Reports nausea. : No signs and/or symptoms were reported regarding the genitourinary system. EENT: No signs and/or symptoms were reported regarding the EENT system. Derm: Skin is intact, is healthy with good turgor, Skin is pink, warm \T\ dry. normal. Musculoskeletal: Circulation, motion, and sensation intact. Capillary refill < 3 seconds. 18:17 Reassessment: dr robert came and advised for admission. patient agreed and informed [facility] about the waiting time. Vital Signs: 15:58 BP 180 / 106; Pulse 109; Resp 16; Temp 97.8; Pulse Ox 98% on R/A; Weight 99.79 kg; la1 Height 5 ft. 2 in. (157.48 cm); Pain 7/10; 17:43 BP 149 / 105; Pulse 85; Resp 18; Temp 98; Pulse Ox 97% on R/A; Pain 4/10; mg2 19:25 BP 125 / 84; Pulse 75; Resp 18; Temp 98(O); Pulse Ox 98% on R/A; Pain 0/10; mg2 15:58 Body Mass Index 40.24 (99.79 kg, 157.48 cm) la1 ED Course: 15:36 Patient arrived in ED. rg4 15:37 Ninfa Mensah MD is Private Physician. rg4 15:57 Triage completed. la1 15:58 Arm band placed on left wrist. la1 16:00 Chris Villalta, ALEX is Primary Nurse. mg2 16:04 Андрей Velasco MD is Attending Physician. eloy 16:35 Urine collected: clean catch specimen, clear, caryl colored, EKG done, by ED staff, jp3 reviewed by Андрей Velasco MD. 16:37 XRAY Chest (1 view) In Process Unspecified. EDMS 17:21 Tyra Robert MD is Hospitalizing Provider. eloy 17:22 CT completed. Patient tolerated procedure well. Patient moved back from CT. bq 17:24 CT Head Brain wo Cont In Process Unspecified. EDMS 17:42 Patient has correct armband on for positive identification. chief operator synthesis on. Pulse mg2 ox on. NIBP on. Door closed. Warm blanket given. Pillow given. 17:42 No provider procedures requiring assistance completed. Accessed Port-a-Cath. Blood mg2 collected. using accessed w/ # 20 Kahn needle, 20G Nexia IV catheter ,sterile technique, per hospital protocol. Clean \T\ dry. Dressing intact. Good blood return. Flushes easily. Patient maintains SpO2 saturation greater than 95% on room air. 19:35 Patient admitted, IV remains in place. mg2 Administered Medications: 17:18 Drug: NS 0.9% 1000 ml Route: IV; Rate: 125 ml/hr; Site: Port-a-cath; mg2 19:25 Follow up: Response: No adverse reaction; IV Status: Infusion continued upon admission mg2 17:40 Drug: morphine 4 mg Route: IVP; Site: Port-a-cath; mg2 19:24 Follow up: Response: No adverse reaction; Marked relief of symptoms mg2 17:40 Drug: Zofran 4 mg Route: IVP; Site: Port-a-cath; mg2 19:24 Follow up: Response: No adverse reaction; Marked relief of symptoms mg2 17:40 Drug: Pepcid 20 mg Route: IVP; Site: Port-a-cath; mg2 19:23 Follow up: Response: No adverse reaction; Marked relief of symptoms mg2 17:40 Drug: Lopressor 25 mg Route: PO; mg2 19:21 Follow up: Response: No adverse reaction mg2 18:13 Drug: Aspirin Chewable Tablet 162 mg Route: PO; mg2 19:24 Follow up: Response: No adverse reaction; Marked relief of symptoms mg2 18:13 Drug: Lovenox 100 mg Route: Sub-Q; Site: left lower abdomen; mg2 19:23 Follow up: Response: No adverse reaction mg2 Outcome: 17:24 Decision to Hospitalize by Provider. eloy 19:35 Admitted to Tele accompanied by tech, via wheelchair, room 415, with chart, Report mg2 called to ALEX El 19:35 Condition: stable 19:35 Instructed on the need for admit, Demonstrated understanding of instructions. 19:47 Patient left the ED. mg2 Signatures: Dispatcher [employer] EDMS Андрей Velasco MD MD cha Quilty, Betty bq Attema, Lee, RN RN la1 Lisandra Arriola rg4 Chris Villalta, RN RN mg2 Robbie Ramires jp3
--- NOTE | 2019-01-27 17:33 | RAD REPORT ---
EXAM DESCRIPTION: CT - Head Brain Wo Cont - 01/27/2019 5:23 pm CLINICAL HISTORY: PAIN Headache, drowsiness COMPARISON: Head Brain Wo Cont dated 07/01/2016 TECHNIQUE: All CT scans are performed using dose optimization technique as appropriate and may inclu de automated exposure control or mA/KV adjustment according to patient size. FINDINGS: No intracranial hemorrhage, hydrocephalus or extra-axial fluid collection.No areas of brai n edema or evidence of midline shift. The paranasal sinuses and mastoids are clear. The calvarium is intact. IMPRESSION: No acute intracranial abnormality.
[2019-01-27] MEDS ORDERED: ASPIRIN 81 MG CHEWABLE TABLET ONE (17:38)
[2019-01-27] MEDS ORDERED: ENOXAPARIN 100 MG/ML SYR SQ ONE (17:39)
[2019-01-27] MEDS ORDERED: METOPROLOL TAR 25 MG TAB ONE (17:39)
[2019-01-27] MEDS ORDERED: ONDANSETRON 4 MG/2 ML VIAL ONE (17:39)
[2019-01-27] MEDS ORDERED: FAMOTIDINE 20 MG/2 ML VIAL IV ONE (17:39)
[2019-01-27] MEDS ORDERED: MORPHINE 4 MG/ML SYR ONE (17:39)
[2019-01-27] MEDS ORDERED: NA CHLORIDE 0.9% 1,000 ML IV SCH (18:00)
--- NOTE | 2019-01-27 18:24 | P.HP ---
Certification for Inpatient Patient admitted to: Observation With expected LOS: <2 Midnights Patient will require the following post-hospital care: None Practitioner: I am a practitioner with admitting privileges, knowledge of patient current condition, hospital course, and medical plan of care. Services: Services provided to patient in accordance with Admission requirements found in Title 42 Section 412.3 of the Code of Federal Regulations Patient History Date of Service: 01/27/19 Primary Care Provider: Dr Muñoz Reason for admission: CHest pain with CAVAZOS History of Present Illness: 53-year-old female with significant past medical history of lung cancer currently on Chemotherapy who presented to the ED complaining of having some chest pain that started this morning. Patient stated that she woke up this morning and noticed she is not feeling well and was not herself. She stated that she started off with chest tightness and eventually chest pain that was radiating to her back. Patient stated along with her chest pain. She also had excruciating headache for which she took Tylenol and Topamax however her headache was not improved with either of the medications. Patient also stated that she had some nausea and vomiting this morning when her chest pain started. Pain is 7/10 at its worse and it is described as dull pain on the left side. Patient denies having any shortness of breath, abdominal pain diarrhea or any other associated symptoms. She also mentions that past couple of weeks she has been feeling dizzy however was evaluated by her surgeon that today the pain pump and was told that the pump is working fine and to follow up with her primary care doctor for that. In the ER patient was evaluated lab work and imaging was done. Troponin x1 was negative. EKG was with nonspecific changes. Patient did have elevated blood pressure initially of 182/100. Patient was admitted for ACS rule out. Allergies celecoxib [From Celebrex] Allergy (Verified 07/02/16 02:13) unknown meperidine [From Demerol] Allergy (Verified 07/02/16 02:13) unknown Home Medications: Furosemide 20 - 40 mg PO DAILYPRN PRN 07/02/16 Levothyroxine Sodium 75 mcg PO DAILY 07/02/16 Methyl Salicylate/Menthol [Arthritis Hot Pain Relief Crm] 2 tab PO BEDTIME PRN PRN 07/02/16 Ondansetron HCl 4 mg PO BIDP PRN 07/02/16 Sertraline HCl 100 mg PO DAILY 07/02/16 Tizanidine [Zanaflex*] 2 mg PO DAILY 07/02/16 Metoprolol Succinate [Toprol Xl*] 50 mg PO [id number] #30 tab 07/03/16 Diphenox/Atropine [Lomotil*] 1 tab PO TIDP PRN 11/27/18 Folic Acid 1 mg PO DAILY 11/27/18 Gabapentin [Neurontin] 800 mg PO BEDTIME 11/27/18 Pantoprazole [Protonix Tab*] 40 mg PO DAILY 11/27/18 Potassium Oral Tab [Klor-Con 10 mEq Tab*] 20 meq PO DAILYPRN PRN 11/27/18 Promethazine Tab [Phenergan*] 25 - 50 mg PO Q6HP PRN 11/27/18 Sumatriptan [Imitrex*] 50 mg PO PRN PRN 11/27/18 Temazepam 30 mg PO BEDTIME 11/27/18 Trazodone HCl [Desyrel] 100 mg PO BEDTIME 11/27/18 Acetam/Caff/Butal [Fioricet] 1 tab PO Q4H PRN #15 tab 12/04/18 - Past Medical/Surgical History Diabetic: No -: RA -: GERD -: HTN -: osteo -: stage 4 lung ca -: ID -: CAD -: hypothyroidism -: Barretts esophagus -: hysterectomy -: Total L knee replacement -: lap mehul, lap appy -: pain pump R abdomen -: L lobe thyroidectomy -: R lobectomy -: tonsillectomy -: 3 corneal transplants - Family History Father -: Heart disease Mother -: Cancer Notes: : breast and throat ca Brother -: Cancer Notes: 2 brothers from ca lung ca, colon ca Sister -: Cancer Notes: lung ca - Social History Alcohol use: No CD- Drugs: No Caffeine use: Yes Review of Systems 10-point ROS is otherwise unremarkable Physical Examination - Physical Exam General: Alert, Mild distress, Other (Port-A-Cath in place on the right side) Respiratory: Clear to auscultation bilaterally, Normal air movement Cardiovascular: Regular rate/rhythm, Normal S1 S2 Gastrointestinal: Normal bowel sounds, No tenderness Musculoskeletal: No tenderness Integumentary: No rashes Neurological: Normal speech, Normal tone Lymphatics: No axilla or inguinal lymphadenopathy - Studies Laboratory Data (last 24 hrs) 01/27/19 16:45: PT 12.4, INR 1.05 01/27/19 16:45: WBC 6.0, Hgb 10.3 L, Hct 30.1 L, Plt Count 173 01/27/19 16:45: Sodium 143, Potassium 3.5, BUN 26 H, Creatinine 2.91 H, Glucose 104, Magnesium 2.4, Total Bilirubin 0.3, AST 19, ALT 13, Alkaline Phosphatase 77 , Lipase 108 Assessment and Plan - Problems (Diagnosis) (1) Chest pain Onset Date: 07/02/16 Current Visit: No Status: Acute Plan: Atypical chest pain most likely secondary to demand ischemia and due to elevated blood pressure -troponin x1 negative. Will repeat troponin x2 here in the hospital. -EKG with nonspecific changes. -cardiology consulted. Awaiting recommendations at this time -patient's DANIEL score is elevated due to high risk from past medical history of CAD and lung cancer -will monitor closely on telemetry in next 24-48 hr Qualifiers: Ischemic chest pain type: other angina pectoris type (2) Rheumatoid arthritis Current Visit: No Status: Chronic Plan: Stable at this time -will restart home medication Qualifiers: Rheumatoid arthritis location: unspecified site Rheumatoid factor presence : unspecified presence Qualified Code(s): M06.9 - Rheumatoid arthritis, unspecified (3) CAD (coronary artery disease) Current Visit: No Status: Chronic Plan: Currently with chest pain ACS rule out -will restart home medication Qualifiers: Coronary Disease-Associated Artery/Lesion type: [place] artery [place] vs. transplanted heart: [place] heart Associated angina: with stable angina Qualified Code(s): I25.118 - Atherosclerotic heart disease of [place] coronary artery with other forms of angina pectoris (4) GERD (gastroesophageal reflux disease) Current Visit: No Status: Chronic Plan: Will start patient on Protonix here in the hospital Qualifiers: Esophagitis presence: without esophagitis Qualified Code(s): K21.9 - Gastro -esophageal reflux disease without esophagitis (5) Hypertension Current Visit: No Status: Chronic Plan: Patient currently has blood pressure that is elevated. -takes metoprolol 50 mg daily at home -will await cardiology consultation regarding increasing blood pressure medication or adding a new agent -will put patient p.r.n. on hydralazine at this time Qualifiers: Hypertension type: essential hypertension (6) Hypothyroid Current Visit: No Status: Chronic Plan: Restart home levothyroxine Qualifiers: Hypothyroidism type: acquired Qualified Code(s): E03.9 - Hypothyroidism, unspecified (7) Lung cancer Current Visit: No Status: Chronic Qualifiers: Laterality: unspecified laterality Lung location: unspecified part of lung Qualified Code(s): C34.90 - Malignant neoplasm of unspecified part of unspecified bronchus or lung - Plan Admit patient to medical-surgical floor for chest pain ACS rule out. Will get troponin x2 year in the hospital and obtain cardiology consultation. Will monitor on telemetry for next 24-48 hr. Discharge Plan: Home Plan to discharge in: 48 Hours - Advance Directives Does patient have a Living Will: No Does patient have a Durable POA for Healthcare: Yes - Code Status/Comfort Care Code Status Assessed: Yes Critical Care: No
[2019-01-27] MEDS ORDERED: HYDRALAZINE HCL 20 MG/ML VIAL IV PRN (18:27)
[2019-01-27] MEDS ORDERED: ONDANSETRON 4 MG/2 ML VIAL IV PRN (20:19)
[2019-01-27] MEDS ORDERED: FENTANYL CITR 100 MCG/2 ML IV ONE (21:40)
[2019-01-27] MEDS: PROMETHAZINE 25 MG/ML VIAL IV PRN (22:00)
[2019-01-28 01:00] VITALS: BMI 40.2
[2019-01-28] MEDS: FENTANYL CITR 100 MCG/2 ML IV PRN ×2 (03:02→08:50)
[2019-01-28] MEDS: PROMETHAZINE 25 MG/ML VIAL IV PRN ×2 (03:03→08:54)
[2019-01-28 06:11] LABS: Absolute Lymphocytes (CBC) 1.8 K/uL (0.7-4.9); Absolute Monocytes 0.6 K/uL (0.1-1.3); Basophils % 0.2 % (0-1.3); Eosinophils % 1.8 % (0-4.4); Hematocrit 26.1 % (36.0-45.0); Lymphocytes % 32.6 % (15.3-44.8); MPV 8.4 fL (7.6-11.3); Monocytes % 11.1 % (3.3-12.3); RBC Red Blood Cell Count 2.83 M/uL (3.86-4.86)
[2019-01-28 06:29] LABS: Albumin 3.1 g/dL (3.4-5.0); Bilirubin Total 0.2 mg/dL (0.2-1.0); Potassium 3.5 mmol/L (3.5-5.1); Protein, Total 7.3 g/dL (6.4-8.2)
[2019-01-28] MEDS ORDERED: PANTOPRAZOLE 40MG TABLET PO SCH (07:30)
[2019-01-28] MEDS ORDERED: PNEUMOCOCCAL VACCINE 0.5 ML IMVAC ONE (08:00)
[2019-01-28] MEDS ORDERED: ENOXAPARIN 40 MG/0.4 ML SQ SCH (09:00)
[2019-01-28 09:25] VITALS: BP 144/86; TEMP 98.3
[2019-01-28 10:01] VITALS: O2SAT 97
--- NOTE | 2019-01-28 10:08 | EKG ---
Test Date: 2019-01-27 Test Time: 16:09:07 Ornamental Plaster Sticker: MEASUREMENT RESULTS: Intervals: Rate: 99 MA: 160 QRSD: 82 QT: 340 QTc: 436 Hopkins: P: 28 MA: 160 QRS: 71 T: 27 INTERPRETIVE STATEMENTS: Normal sinus rhythm Nonspecific T wave abnormality Abnormal ECG Compared to ECG 11/26/2018 20:45:09 T-wave abnormality now present Electronically Signed On 01-28-19 10:05:45 CDT by Grupo Goddard
[2019-01-28] MEDS ORDERED: HEPARIN 500 UNIT/5 ML SYR IV PRN (10:58)
--- NOTE | 2019-01-28 11:16 | P.SSS ---
Patient History Date of Service: 01/28/19 Primary Care Provider: Dr Muñoz Reason for admission: CHest pain with CAVAZOS History of Present Illness: 53-year-old female with significant past medical history of lung cancer currently on Chemotherapy who presented to the ED complaining of having some chest pain that started this morning. Patient stated that she woke up this morning and noticed she is not feeling well and was not herself. She stated that she started off with chest tightness and eventually chest pain that was radiating to her back. Patient stated along with her chest pain. She also had excruciating headache for which she took Tylenol and Topamax however her headache was not improved with either of the medications. Patient also stated that she had some nausea and vomiting this morning when her chest pain started. Pain is 7/10 at its worse and it is described as dull pain on the left side. Patient denies having any shortness of breath, abdominal pain diarrhea or any other associated symptoms. She also mentions that past couple of weeks she has been feeling dizzy however was evaluated by her surgeon that today the pain pump and was told that the pump is working fine and to follow up with her primary care doctor for that. In the ER patient was evaluated lab work and imaging was done. Troponin x1 was negative. EKG was with nonspecific changes. Patient did have elevated blood pressure initially of 182/100. Patient was admitted for ACS rule out. Allergies celecoxib [From Celebrex] Allergy (Verified 07/02/16 02:13) unknown meperidine [From Demerol] Allergy (Verified 07/02/16 02:13) unknown Home Medications: Folic Acid 1 tab PO DAILY 01/28/19 Metoprolol Succinate [Toprol Xl*] 50 mg PO BID #60 tab 01/28/19 Pantoprazole [Protonix Tab*] 1 tab PO DAILY 01/28/19 Sertraline [Zoloft*] 1 tab PO DAILY 01/28/19 Temazepam 30 mg PO BEDTIME 01/28/19 Trazodone HCl [Desyrel] 100 mg PO BEDTIME 01/28/19 - Past Medical/Surgical History Has patient received pneumonia vaccine in the past: No Diabetic: No -: RA -: GERD -: HTN -: osteo -: stage 4 lung ca -: ND -: CAD -: hypothyroidism -: Barretts esophagus -: hysterectomy -: Total L knee replacement -: lap mehul, lap appy -: pain pump R abdomen -: L lobe thyroidectomy -: R lobectomy -: tonsillectomy -: 3 corneal transplants - Family History Father -: Heart disease Mother -: Cancer Notes: : breast and throat ca Brother -: Cancer Notes: 2 brothers from ca lung ca, colon ca Sister -: Cancer Notes: lung ca - Social History Smoking Status: Former smoker Alcohol use: No CD- Drugs: No Caffeine use: Yes Place of Residence: Home Review of Systems 10-point ROS is otherwise unremarkable Physical Examination - Vital Signs Temperature: 98.3 F Blood Pressure: 144/86 Pulse: 76 Respirations: 16 Pulse Ox (%): 97 - Physical Exam General: Alert, In no apparent distress HEENT: Atraumatic, PERRLA, Mucous membr. moist/pink, EOMI, Sclerae nonicteric Neck: Supple, 2+ carotid pulse no bruit, No LAD, Without JVD or thyroid abnormality Respiratory: Clear to auscultation bilaterally, Normal air movement Cardiovascular: Regular rate/rhythm, Normal S1 S2 Gastrointestinal: Normal bowel sounds, No tenderness Musculoskeletal: No tenderness Integumentary: No rashes Neurological: Normal gait, Normal speech, Normal strength at 5/5 x4 extr, Normal tone, Normal affect Lymphatics: No axilla or inguinal lymphadenopathy - Studies Laboratory Data (last 24 hrs) 01/27/19 16:45: PT 12.4, INR 1.05 01/27/19 16:45: WBC 6.0, Hgb 10.3 L, Hct 30.1 L, Plt Count 173 01/27/19 16:45: Sodium 143, Potassium 3.5, BUN 26 H, Creatinine 2.91 H, Glucose 104, Magnesium 2.4, Total Bilirubin 0.3, AST 19, ALT 13, Alkaline Phosphatase 77 , Lipase 108 - Diagnosis (Problem(s)) (1) Chest pain Onset Date: 07/02/16 Current Visit: No Status: Acute Plan: Atypical chest pain most likely secondary to demand ischemia and due to elevated blood pressure -troponin x2 negative. -EKG with nonspecific changes. -cardiology consulted. Reccs to increase Metorpolol to BID and DC home. Outpt W /u. Qualifiers: Ischemic chest pain type: other angina pectoris type (2) Rheumatoid arthritis Current Visit: No Status: Chronic Qualifiers: Rheumatoid arthritis location: unspecified site Rheumatoid factor presence : unspecified presence Qualified Code(s): M06.9 - Rheumatoid arthritis, unspecified (3) CAD (coronary artery disease) Current Visit: No Status: Chronic Qualifiers: Coronary Disease-Associated Artery/Lesion type: [place] artery [place] vs. transplanted heart: [place] heart Associated angina: with stable angina Qualified Code(s): I25.118 - Atherosclerotic heart disease of [place] coronary artery with other forms of angina pectoris (4) GERD (gastroesophageal reflux disease) Current Visit: No Status: Chronic Qualifiers: Esophagitis presence: without esophagitis Qualified Code(s): K21.9 - Gastro -esophageal reflux disease without esophagitis (5) Hypertension Current Visit: No Status: Chronic Plan: BP better controlled. -Increased Metoprolol 50mg BID Qualifiers: Hypertension type: essential hypertension (6) Hypothyroid Current Visit: No Status: Chronic Qualifiers: Hypothyroidism type: acquired Qualified Code(s): E03.9 - Hypothyroidism, unspecified (7) Lung cancer Current Visit: No Status: Chronic Qualifiers: Laterality: unspecified laterality Lung location: unspecified part of lung Qualified Code(s): C34.90 - Malignant neoplasm of unspecified part of unspecified bronchus or lung Treatment Summary: DC home with Outpt f.u with Dr Goddard and General Surgery that installed the pain pump. - Disposition Disposition: ROUTINE DISCHARGE Condition: FAIR Patient Discharge Instructions: Please increase your metoprolol 50mg to Twice a day now Diet: Regular Activity: Ad moe
--- NOTE | 2019-01-28 14:24 | CON ---
Date of Consultation: 01/28/[address] Spears's service on 01/27/2019. I saw the patient on 01/28/2019. Reason For Consultation: Chest pain. History Of Present Illness: Ms. Lindsay is a 53-year-old white woman with multiple medical problems. S he has a history of hypertension, coronary artery disease, although no intervention in the past. She has a history of congestive heart failure that is chronic diastolic and has not been an issue lately . She has a history of rheumatoid arthritis, hypothyroidism, chronic renal disease stage 4. She has a lung cancer. She is status post right upper lobe lobectomy and has a plan to do a wedge surgery o n her left lung secondary to lung cancer. Chemotherapy has been held recently because of anemia. Howard patterson has a new medication in her pain pump, which she uses for her back pain and apparently since then h as been very dizzy. Has a sharp chest pain radiating to the back. No nausea, vomiting, diaphoresis, PND, orthopnea, pedal edema, palpitation, or syncope. She had a normal EKG. Her chest x-ray ironic ally is normal. She had a negative head CT. Her troponin was negative. She was found to have a cre atinine of 2.82, hemoglobin 9.1, BNP of 935. She is now asymptomatic. She has recently had echoes a nd stress test, both of which have been negative. Allergies: SHE IS ALLERGIC TO DEMEROL, CELEBREX, AND ADHESIVE. Review of Systems: Positive for dizziness. Social History: Negative. Family History: Noncontributory. Medications At Home: Include metoprolol 50 mg daily. Physical Examination: VITAL SIGNS: When she came in, she was hypertensive. Last blood pressure is 130/80, sinus rhythm. HEENT: Negative. NECK: Supple with no bruit. CHEST: Clear to auscultation and percussion. CARDIAC: Normal. ABDOMEN: Benign. EXTREMITIES: Revealed no clubbing, cyanosis, or edema. Diagnostic Data: As stated earlier. Impression And Plan: 1.Atypical chest pain, most likely pleuritic or gastroesophageal in nature. She has had recent card iac workup. She has ruled out for an [place]. She has a normal EKG, normal troponin. I am comfortable w ith her going home and following up with her senior risk analyst and with her lung surgeon, and I think she is cleared to have her lung surgery that is coming up with us soon. 2.Renal insufficiency, stage 4. 3.Anemia. 4.Elevated BNP, not clinically significant, nonspecific. 5.Lung cancer, status post right upper lobectomy with the plan for a wedge surgery in her left lung. 6.Hypertension, poorly controlled, may have caused some of her symptoms. I would increase her metop rolol to b.i.d. She is not a candidate for GURJIT inhibitors or ARBs because of her renal dysfunction. 7.Hypothyroidism and rheumatoid arthritis. Both of those are stable. As mentioned earlier, Ms. Lizzie gold can go home. I think she is at low risk for her perioperative mortality as far as her lung surgery is concerned. I do not think we need to repeat any cardiac workup, and she can go home on a double dose of metoprolol. Case was discussed with Dr. Spears. OBDULIA/ANUPAM Voice ID: [id number] Report ID: [id number]
[2019-01-28] MEDS ORDERED: ENOXAPARIN 30 MG/0.3 ML SQ SCH (18:00)
== END 2019-01-28 11:36 | disposition home or self-care (01) ==
LOC: ER 15:32 → ERHOLD 17:40 → 4TH 19:33
PROVIDERS: ADMIT Family Medicine; ATTEND Family Medicine
DX: R07.89 Other chest pain (principal); I13.0 Hypertensive heart and chronic kidney disease with heart failure and stage 1 through stage 4 chronic kidney disease, or unspecified chronic kidney disease; N18.4 Chronic kidney disease, stage 4 (severe); I50.32 Chronic diastolic (congestive) heart failure; D63.1 Anemia in chronic kidney disease; C34.92 Malignant neoplasm of unspecified part of left bronchus or lung; C34.91 Malignant neoplasm of unspecified part of right bronchus or lung; E03.9 Hypothyroidism, unspecified; I25.10 Atherosclerotic heart disease of native coronary artery without angina pectoris; I25.2 Old myocardial infarction; K21.9 Gastro-esophageal reflux disease without esophagitis; M06.9 Rheumatoid arthritis, unspecified; R94.31 Abnormal electrocardiogram [ECG] [EKG]; R51 Headache; Z79.899 Other long term (current) drug therapy; Z96.89 Presence of other specified functional implants; Z87.891 Personal history of nicotine dependence
CPT/HCPCS: 96361; 93005; 87088; 85025 ×2; 87086; 80048; 36415; 83735; 85610; 80076; 81003; 84484 ×3; 83690; 80053; 83880; 70450; 71045; 96375; 96372; 96374; 99285; J2550 ×3; J3010 ×3; J1650; J1642; J7030; J2405; G0378 ×2; 90670

== ENCOUNTER 2019-03-17 00:58 | Inpatient (IN) | payer OTHER ==
[2019-03-17 01:49] LABS: Absolute Lymphocytes (CBC) 1.3 K/uL (0.7-4.9); Basophils % 0.2 % (0-1.3); Eosinophils % 1.1 % (0-4.4); Hematocrit 35.2 % (36.0-45.0); Lymphocytes % 15.7 % (15.3-44.8); MPV 8.9 fL (7.6-11.3); Monocytes % 6.4 % (3.3-12.3); RBC Red Blood Cell Count 3.74 M/uL (3.86-4.86)
[2019-03-17] MEDS ORDERED: NA CHLORIDE 0.9% 500 ML ONE (02:02)
[2019-03-17 02:07] LABS: ALT/SGPT 18 U/L (12-78); AST/SGOT 14 U/L (15-37); Albumin 3.5 g/dL (3.4-5.0); Alkaline Phosphatase 72 U/L (45-117); BUN Blood Urea Nitrogen 48 mg/dL (7-18); Bicarbonate 22 mmol/L (21-32); Bilirubin Direct < 0.1 mg/dL (0-0.2); Bilirubin Total 0.1 mg/dL (0.2-1.0); Glucose Level 145 mg/dL (74-106); Lipase 296 U/L (73-393); Potassium 3.8 mmol/L (3.5-5.1); Protein, Total 7.9 g/dL (6.4-8.2); Sodium Level 141 mmol/L (136-145); Troponin (Emerg Dept Use Only) 0.11 ng/mL (0.0-0.045)
[2019-03-17] MEDS ORDERED: ONDANSETRON 4 MG/2 ML VIAL ONE (02:10)
[2019-03-17] MEDS ORDERED: LORazepam 2 MG/ML VIAL ONE (02:46)
--- NOTE | 2019-03-17 04:42 | ER ---
Nurse's Notes [facility] Name: Anisha Lindsay Age: 53 yrs Sex: Female : 1965 Arrival Date: 03/17/2019 Time: 01:11 Bed 7 Private MD: Diagnosis: Unstable angina Presentation: 03/17 01:05 Presenting complaint: EMS states: patient complaint of abdominal pain, nausea, joint rr5 pain, chest pain 30 minutes ago. history of lung cancer. patient has fentanyl 75mcg pump on her cannot recall when was the last time she administered it. aspirin taken 4 tablets 324mg. Vital signs 168/105 HR 78bpm, O2 sat 99%. 01:05 Transition of care: patient was not received from another setting of care. Onset of rr5 symptoms was March 17, 2019. Risk Assessment: Do you want to hurt yourself or someone else? Patient reports no desire to harm self or others. Initial Sepsis Screen: Does the patient meet any 2 criteria? No. Patient's initial sepsis screen is negative. Does the patient have a suspected source of infection? No. Patient's initial sepsis screen is negative. Care prior to arrival: Medication(s) given: ASA, 325 mg. 01:05 Method Of Arrival: EMS: [facility] rr5 01:05 Acuity: CHEN 3 rr5 01:10 Note fentanyl 75mcg pump at right side of abdomen palpated. 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 LMP N/A - Hysterectomy rr5 Historical: - Allergies: 01:05 Adhesives; rr5 01:05 Celebrex; rr5 01:05 Demerol; rr5 - Home Meds: 01:05 Albuterol Inhl [Active]; Colestid Oral [Active]; gabapentin Oral [Active]; rr5 levothyroxine 50 mcg tab [Active]; Metoprolol Tartrate Oral [Active]; Folic Acid Oral [Active]; Ofloxacin Otic [Active]; Protonix Oral [Active]; tizanidine Oral [Active]; sertraline Oral [Active]; - PMHx: 01:05 CHF; CSF leak; Hypertension; Hypothyroidism; Myocardial infarction; Rheumatoid rr5 Arthritis; Stage 4 Lung Cencer- currently on Chemo; osteo arthirtis; Depression; - PSHx: 01:05 Lobectomy; Appendectomy; Cholecystectomy; Hysterectomy; Hernia repair; Thyroidectomy; rr5 Knee surgery; left corneal surgery; - Immunization history:: Adult Immunizations up to date. - Social history:: Smoking status: Patient/guardian denies using tobacco, Patient/guardian denies using alcohol, street drugs. - Ebola Screening: : Patient negative for fever greater than or equal to 101.5 degrees Fahrenheit, and additional compatible Ebola Virus Disease symptoms Patient denies exposure to infectious person Patient denies travel to an Ebola-affected area in the 21 days before illness onset. Screenin:10 Abuse screen: Denies threats or abuse. Denies injuries from another. Nutritional rr5 screening: No deficits noted. Tuberculosis screening: No symptoms or risk factors identified. Fall Risk IV access (20 points). Total Blevins Fall Scale indicates No Risk (0-24 pts). Assessment: 01:15 General: Appears uncomfortable, Behavior is anxious, fussy, restless. Pain: Complains lp1 of pain in chest and abdomen Pain currently is 9 out of 10 on a pain scale. Quality of pain is described as sharp. Neuro: Level of Consciousness is awake, alert, obeys commands, Oriented to person, place, time, situation. Cardiovascular: Capillary refill < 3 seconds in bilateral fingers. Respiratory: Respiratory effort is even, Respiratory pattern is regular. GI: Pt is actively vomiting undigested food. : No signs and/or symptoms were reported regarding the genitourinary system. EENT: No signs and/or symptoms were reported regarding the EENT system. Derm: Skin is intact, Skin is dry, Skin is normal. Musculoskeletal: No deficits noted. 01:59 Reassessment: Provider notified of patient complaint of nausea; Verbal order for Zofran lp1 4mg IV. 02:49 Reassessment: Patient returned from CT at this time; Continued nausea, medicated per lp1 orders, continuing to monitor. 04:00 Reassessment: Patient and/or family updated on plan of care and expected duration. Pain lp1 level reassessed. Patient states nausea relieved, requesting to have something for pain to head; Provider notified. 04:39 Reassessment: Dr. Borjas at bedside. lp1 05:30 Reassessment: Patient resting, eyes closed, respirations unlabored; aware of pending lp1 admission. Vital Signs: 01:05 BP 115 / 89; Pulse 82; Resp 20; Temp 97.9; Pulse Ox 98% ; Weight 99.79 kg; Height 5 ft. rr5 2 in. (157.48 cm); Pain 10/10; 02:00 BP 134 / 83; Pulse 80; Resp 16; Pulse Ox 98% on R/A; lp1 02:50 BP 130 / 98; Pulse 78; Resp 13; Pulse Ox 98% on R/A; lp1 03:30 BP 105 / 59; Pulse 78; Resp 20; Pulse Ox 94% on R/A; lp1 04:00 BP 105 / 56; Pulse 84; Resp 20; Pulse Ox 95% on R/A; Pain 8/10; lp1 05:00 BP 94 / 49; Pulse 88; Resp 19; Temp 97.8; Pulse Ox 95% on R/A; rr5 05:29 BP 122 / 77; Pulse 86; Resp 20; Temp 98.2(O); Pulse Ox 96% on R/A; lp1 01:05 Body Mass Index 40.24 (99.79 kg, 157.48 cm) rr5 ED Course: 01:05 Arm band placed on. rr5 01:10 Patient has correct armband on for positive identification. Placed in gown. Bed in low rr5 position. Call light in reach. Side rails up X2. transformation analyst on. Pulse ox on. NIBP on. 01:11 Patient arrived in ED. rr5 01:12 Francesco Del Angel RN is Primary Nurse. rr5 01:16 Triage completed. rr5 01:17 Kervin Franklin MD is Attending Physician. gs 01:25 Accessed Port-a-Cath. using accessed w/ # 20 Kahn needle, ,sterile technique, per [address] protocol. Clean \T\ dry. Dressing intact. Good blood return. Flushes easily. 01:36 Carmen Demarco, RN is Primary Nurse. lp1 01:55 EKG done, by technical services assistant. reviewed by Kervin Franklin MD. rr5 02:57 CT Abd/Pelvis - Without Contrast In Process Unspecified. EDMS 04:40 No provider procedures requiring assistance completed. lp1 04:41 Roberta Borjas MD is Hospitalizing Provider. gs 05:27 Patient admitted, IV remains in place. lp1 Administered Medications: 01:54 Drug: NS 0.9% 500 ml Route: IV; Rate: bolus; Site: Port-a-cath; rr5 02:34 Follow up: IV Status: Completed infusion; IV Intake: 500ml lp1 02:00 Drug: Zofran 4 mg Route: IVP; Site: Port-a-cath; lp1 02:33 Follow up: Response: No change in condition; Nausea unchanged lp1 02:49 Drug: Ativan 1 mg Route: IVP; Site: Port-a-cath; lp1 04:42 Follow up: Response: Marked relief of symptoms; Nausea is decreased lp1 05:24 Not Given (already given by EMS): Aspirin Chewable Tablet 324 mg PO once; 81 mg tablets rr5 x 4 Intake: 02:34 IV: 500ml; Total: 500ml. lp1 Output: 04:55 Urine: 450ml (Voided); Total: 450ml. rr5 Outcome: 04:41 Decision to Hospitalize by Provider. 05:26 Admitted to Tele accompanied by nurse, via wheelchair, room 409, with chart, Report lp1 called to Adriane Ibarra RN 05:26 Condition: stable 05:26 Instructed on the need for admit. 05:55 Patient left the ED. lp1 Signatures: Dispatcher [employer] Carmen Boyd RN RN lp1 Kervin Franklin MD MD Francesco Del Angel RN RN rr5
--- NOTE | 2019-03-17 04:42 | EDPHYS ---
Physician Documentation [facility] Name: Anisha Lindsay Age: 53 yrs Sex: Female : 1965 Arrival Date: 03/17/2019 Time: 01:11 Bed 7 Private MD: ED Physician Kervin Franklin HPI: 03/17 05:42 This 53 yrs old Female presents to ER via EMS with complaints of Abdominal gs Pain. 05:42 The patient or guardian reports chest pain that is located primarily in the epigastric gs area, anterior chest wall. Onset: 30 minute(s) ago. The pain radiates to abdomen. Associated signs and symptoms: Pertinent positives: abdominal pain, shortness of breath. The chest pain is described as a heaviness. Duration: The patient or guardian reports a single episode, that is still ongoing. Modifying factors: The symptoms are alleviated by nothing. the symptoms are aggravated by nothing. Severity of pain: At its worst the pain was moderate in the emergency department the pain is unchanged. The patient has experienced similar episodes in the past, a few times. The patient has been recently seen by a physician: an oncologist, recent radiation. 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 LMP N/A - Hysterectomy rr5 Historical: - Allergies: 01:05 Adhesives; rr5 01:05 Celebrex; rr5 01:05 Demerol; rr5 - Home Meds: 01:05 Albuterol Inhl [Active]; Colestid Oral [Active]; gabapentin Oral [Active]; rr5 levothyroxine 50 mcg tab [Active]; Metoprolol Tartrate Oral [Active]; Folic Acid Oral [Active]; Ofloxacin Otic [Active]; Protonix Oral [Active]; tizanidine Oral [Active]; sertraline Oral [Active]; - PMHx: 01:05 CHF; CSF leak; Hypertension; Hypothyroidism; Myocardial infarction; Rheumatoid rr5 Arthritis; Stage 4 Lung Cencer- currently on Chemo; osteo arthirtis; Depression; - PSHx: 01:05 Lobectomy; Appendectomy; Cholecystectomy; Hysterectomy; Hernia repair; Thyroidectomy; rr5 Knee surgery; left corneal surgery; - Immunization history:: Adult Immunizations up to date. - Social history:: Smoking status: Patient/guardian denies using tobacco, Patient/guardian denies using alcohol, street drugs. - Ebola Screening: : Patient negative for fever greater than or equal to 101.5 degrees Fahrenheit, and additional compatible Ebola Virus Disease symptoms Patient denies exposure to infectious person Patient denies travel to an Ebola-affected area in the 21 days before illness onset. ROS: 06:02 All other systems are negative. gs Exam: 06:02 Head/Face: Normocephalic, atraumatic. Eyes: Pupils equal round and reactive to light, gs extra-ocular motions intact. Lids and lashes normal. Conjunctiva and sclera are non-icteric and not injected. Cornea within normal limits. Periorbital areas with no swelling, redness, or edema. ENT: Nares patent. No nasal discharge, no septal abnormalities noted. Tympanic membranes are normal and external auditory canals are clear. Oropharynx with no redness, swelling, or masses, exudates, or evidence of obstruction, uvula midline. Mucous membranes moist. Neck: Trachea midline, no thyromegaly or masses palpated, and no cervical lymphadenopathy. Supple, full range of motion without nuchal rigidity, or vertebral point tenderness. No Meningismus. Chest/axilla: Normal chest wall appearance and motion. Nontender with no deformity. No lesions are appreciated. Cardiovascular: Regular rate and rhythm with a normal S1 and S2. No gallops, murmurs, or rubs. Normal PMI, no JVD. No pulse deficits. Respiratory: Lungs have equal breath sounds bilaterally, clear to auscultation and percussion. No rales, rhonchi or wheezes noted. No increased work of breathing, no retractions or nasal flaring. Back: No spinal tenderness. No costovertebral tenderness. Full range of motion. Skin: Warm, dry with normal turgor. Normal color with no rashes, no lesions, and no evidence of cellulitis. MS/ Extremity: Pulses equal, no cyanosis. Neurovascular intact. Full, normal range of motion. Neuro: Awake and alert, GCS 15, oriented to person, place, time, and situation. Cranial nerves II-XII grossly intact. Motor strength 5/5 in all extremities. Sensory grossly intact. Cerebellar exam normal. Normal gait. 06:02 Constitutional: The patient appears alert, awake, uncomfortable. 06:02 Abdomen/GI: Palpation: mild abdominal tenderness, in all quadrants, rebound tenderness, is not appreciated. Vital Signs: 01:05 BP 115 / 89; Pulse 82; Resp 20; Temp 97.9; Pulse Ox 98% ; Weight 99.79 kg; Height 5 ft. rr5 2 in. (157.48 cm); Pain 10/10; 02:00 BP 134 / 83; Pulse 80; Resp 16; Pulse Ox 98% on R/A; lp1 02:50 BP 130 / 98; Pulse 78; Resp 13; Pulse Ox 98% on R/A; lp1 03:30 BP 105 / 59; Pulse 78; Resp 20; Pulse Ox 94% on R/A; lp1 04:00 BP 105 / 56; Pulse 84; Resp 20; Pulse Ox 95% on R/A; Pain 8/10; lp1 05:00 BP 94 / 49; Pulse 88; Resp 19; Temp 97.8; Pulse Ox 95% on R/A; rr5 05:29 BP 122 / 77; Pulse 86; Resp 20; Temp 98.2(O); Pulse Ox 96% on R/A; lp1 01:05 Body Mass Index 40.24 (99.79 kg, 157.48 cm) rr5 MDM: 01:39 Patient medically screened. 06:02 Differential diagnosis: coronary artery disease chest wall pain, congestive heart gs failure pancreatitis. Data reviewed: vital signs, nurses notes, lab test result(s), EKG, radiologic studies. Counseling: I had a detailed discussion with the patient and/or guardian regarding: the historical points, exam findings, and any diagnostic results supporting the discharge/admit diagnosis, lab results, radiology results, the need for further work-up and treatment in the hospital. 03/17 01:41 Order name: Basic Metabolic Panel; Complete Time: 02:15 03/17 01:41 Order name: CBC with Diff; Complete Time: 02:15 03/17 01:41 Order name: Hepatic Function; Complete Time: 02:15 03/17 01:41 Order name: Lipase; Complete Time: 02:15 03/17 01:41 Order name: Troponin (emerg Dept Use Only); Complete Time: 02:15 03/17 04:58 Order name: Urine Dipstick--Ancillary (enter results) 2 03/17 01:41 Order name: IV Saline Lock; Complete Time: 01:59 03/17 02:16 Order name: CT Abd/Pelvis - Without Contrast 03/17 04:59 Order name: Urine Microscopic Only rr5 03/17 04:59 Order name: Urine Dipstick-Ancillary EDSD 03/17 01:41 Order name: Labs collected and sent; Complete Time: 01:54 03/17 01:41 Order name: EKG - Nurse/Tech; Complete Time: 01:56 gs Administered Medications: 01:54 Drug: NS 0.9% 500 ml Route: IV; Rate: bolus; Site: Port-a-cath; rr5 02:34 Follow up: IV Status: Completed infusion; IV Intake: 500ml lp1 02:00 Drug: Zofran 4 mg Route: IVP; Site: Port-a-cath; lp1 02:33 Follow up: Response: No change in condition; Nausea unchanged lp1 02:49 Drug: Ativan 1 mg Route: IVP; Site: Port-a-cath; lp1 04:42 Follow up: Response: Marked relief of symptoms; Nausea is decreased lp1 05:24 Not Given (already given by EMS): Aspirin Chewable Tablet 324 mg PO once; 81 mg tablets rr5 x 4 Disposition: 03/17/19 04:41 Hospitalization ordered by Roberta Borjas for Inpatient Admission. Preliminary diagnosis is Unstable angina. - Bed requested for Telemetry/MedSurg (Inpatient). - Status is Inpatient Admission. lp1 - Condition is Stable. - Problem is new. - Symptoms have improved. UTI on Admission? No Signatures: Dispatcher [employer] [facility] Carmen Demarco RN RN lp1 Laruen Arriola RN RN Kervin Franklin MD MD Francesco Del Angel RN RN rr5 Corrections: (The following items were deleted from the chart) 04:58 04:41 Hospitalization Ordered by Roberta Borjas MD for Inpatient Admission. Preliminary diagnosis is Unstable angina. Bed requested for Telemetry/MedSurg (Inpatient). Status is Inpatient Admission. Condition is Stable. Problem is new. Symptoms have improved. UTI on Admission? No. 05:55 04:58 03/17/2019 04:41 Hospitalization Ordered by Roberta Borjas MD for Inpatient lp1 Admission. Preliminary diagnosis is Unstable angina. Bed requested for Telemetry/MedSurg (Inpatient). Status is Inpatient Admission. Condition is Stable. Problem is new. Symptoms have improved. UTI on Admission? No. cg
--- NOTE | 2019-03-17 05:02 | P.HP ---
Certification for Inpatient Patient admitted to: Observation With expected LOS: <2 Midnights Practitioner: I am a practitioner with admitting privileges, knowledge of patient current condition, hospital course, and medical plan of care. Services: Services provided to patient in accordance with Admission requirements found in Title 42 Section 412.3 of the Code of Federal Regulations Patient History Date of Service: 03/17/19 Reason for admission: chest pain History of Present Illness: Ms Lindsay is a 53 years old woman with history of lung cancer, she just finished radiation therapy and is under chemotherapy treatment, CKD, HTN, CAD, chronic pain due to RA on fentanyl pump, who was fine until last night after dinner, when she start having epigastric pain associated with nausea. Then she start with chest pain, substernal, pressure like, 8/10 of intensity, associated with SOB. At arrival, the chest pain gradually improved, Initial trop I 0.11, creatinine elevated but about her baseline. EKG shows SR at 75 bpm, without ST- T abnormalities. At my encounter she was chest pain free. Allergies celecoxib [From Celebrex] Allergy (Verified 07/02/16 02:13) unknown meperidine [From Demerol] Allergy (Verified 07/02/16 02:13) unknown Home Medications: Folic Acid 1 tab PO DAILY 01/28/19 Metoprolol Succinate [Toprol Xl*] 50 mg PO BID #60 tab 01/28/19 Pantoprazole [Protonix Tab*] 1 tab PO DAILY 01/28/19 Sertraline [Zoloft*] 1 tab PO DAILY 01/28/19 Temazepam 30 mg PO BEDTIME 01/28/19 Trazodone HCl [Desyrel] 100 mg PO BEDTIME 01/28/19 - Past Medical/Surgical History Diabetic: No -: RA -: GERD -: HTN -: osteo -: stage 4 lung ca -: [place] -: CAD -: hypothyroidism -: Barretts esophagus -: hysterectomy -: Total L knee replacement -: lap mehul, lap appy -: pain pump R abdomen -: L lobe thyroidectomy -: R lobectomy -: tonsillectomy -: 3 corneal transplants - Family History Father -: Heart disease Mother -: Cancer Notes: : breast and throat ca Brother -: Cancer Notes: 2 brothers from ca lung ca, colon ca Sister -: Cancer Notes: lung ca - Social History Smoking Status: Former smoker Alcohol use: No CD- Drugs: No Caffeine use: Yes Place of Residence: Home Review of Systems 10-point ROS is otherwise unremarkable Physical Examination - Physical Exam General: Alert, In no apparent distress HEENT: Atraumatic, PERRLA, Mucous membr. moist/pink, EOMI, Sclerae nonicteric Neck: Supple, 2+ carotid pulse no bruit, No LAD, Without JVD or thyroid abnormality Respiratory: Clear to auscultation bilaterally, Diminished Cardiovascular: Regular rate/rhythm, Normal S1 S2 Gastrointestinal: Normal bowel sounds, No tenderness Musculoskeletal: No tenderness Integumentary: No rashes Neurological: Normal speech, Normal strength at 5/5 x4 extr, Normal tone, Normal affect Lymphatics: No axilla or inguinal lymphadenopathy - Studies Laboratory Data (last 24 hrs) 03/17/19 01:25: WBC 8.5, Hgb 12.0, Hct 35.2 L, Plt Count 135 L 03/17/19 01:25: Sodium 141, Potassium 3.8, BUN 48 H, Creatinine 2.49 H, Glucose 145 H, Total Bilirubin 0.1 L, AST 14 L, ALT 18, Alkaline Phosphatase 72, Lipase 296 Assessment and Plan - Problems (Diagnosis) (1) Abdominal pain Current Visit: No Status: Acute Qualifiers: Abdominal location: generalized Qualified Code(s): R10.84 - Generalized abdominal pain (2) Acute kidney injury superimposed on CKD Current Visit: No Status: Acute (3) Chest pain Onset Date: 07/02/16 Current Visit: No Status: Acute Qualifiers: Ischemic chest pain type: other angina pectoris type (4) Elevated troponin Onset Date: 07/02/16 Current Visit: No Status: Acute (5) Lung cancer Current Visit: No Status: Chronic Qualifiers: Laterality: unspecified laterality Lung location: unspecified part of lung Qualified Code(s): C34.90 - Malignant neoplasm of unspecified part of unspecified bronchus or lung (6) Rheumatoid arthritis Current Visit: No Status: Chronic Qualifiers: Rheumatoid arthritis location: unspecified site Rheumatoid factor presence : unspecified presence Qualified Code(s): M06.9 - Rheumatoid arthritis, unspecified - Plan The patient will be admitted to the hospital due to chest pain. EKG shows no acute ST-T changes, initial trop I elevated, frenal function abnormal but about base line. CT abd/pelvis shows no acute abnormalities. Will order serial cardiac enzymes, EKG and cardiology consult. Will order ASA, and statins. BP is on the lower side, will hold beta adonis at this time. - Advance Directives Does patient have a Living Will: No Does patient have a Durable POA for Healthcare: Yes - Code Status/Comfort Care Code Status Assessed: Yes Code Status: Full Code
[2019-03-17] MEDS: ACETAMINOPHEN 500 MG TAB PO PRN ×2 (05:19→17:09)
[2019-03-17] MEDS ORDERED: ASPIRIN 81 MG CHEWABLE TABLET ONE (05:21)
[2019-03-17 05:27] LABS: Urine Blood TRACE (NEG); Urine Glucose NEGATIVE (NEG); Urine Protein 1+ (NEG); Urine Specific Gravity 1.015 (1.005-1.030)
[2019-03-17] MEDS ORDERED: ACETAMINOPHEN 500 MG TAB ONE (05:27)
[2019-03-17 05:59] LABS: Urine RBC <5 /HPF (NONE SEEN)
[2019-03-17 06:00] LABS: Urine Bacteria 20-50 /HPF (<20); Urine Culture Reflex Order REFLEXED
[2019-03-17 06:21] VITALS: BMI 37.8
[2019-03-17] MEDS: ASPIRIN 325 MG TAB PO SCH (08:16)
[2019-03-17] MEDS ORDERED: ENOXAPARIN 30 MG/0.3 ML SQ SCH (09:00)
[2019-03-17] MEDS ORDERED: HYDROCODONE/APAP 7.5/325 MG TAB PO ONE (09:43)
--- NOTE | 2019-03-17 09:57 | EKG ---
Test Date: 2019-03-17 Test Time: 01:54:18 Nurse Quality: DANUTA MEASUREMENT RESULTS: Intervals: Rate: 76 ND: 134 QRSD: 82 QT: 376 QTc: 423 [place]: P: 38 ND: 134 QRS: 66 T: 70 INTERPRETIVE STATEMENTS: Normal sinus rhythm Normal ECG Compared to ECG 01/27/2019 16:09:07 T-wave abnormality no longer present Electronically Signed On 03-17-19 09:56:11 CDT by Tim Tsang
[2019-03-17] MEDS: ONDANSETRON 4 MG/2 ML VIAL IV PRN ×2 (11:24→20:22)
[2019-03-17] MEDS: ENOXAPARIN 100 MG/ML SYR SQ SCH (11:24)
--- NOTE | 2019-03-17 13:16 | RAD REPORT ---
EXAM DESCRIPTION: RAD - Chest Single View - 03/17/2019 1:11 pm CLINICAL HISTORY: VQ SCAN Chest pain. COMPARISON: <Comparisons> FINDINGS: Portable technique limits examination quality. A small right pleural effusion is noted, chronic. The lungs are grossly clear. The heart is normal in size. Right-sided port catheter tip in the SVC.
--- NOTE | 2019-03-17 13:18 | RAD REPORT ---
EXAM DESCRIPTION: NM - Vent Perfusion VQ Scan - 03/17/2019 1:09 pm CLINICAL HISTORY: SOB, rout PE Chest, shortness of breath COMPARISON: Vent Perfusion VQ Scan dated 11/27/2018 TECHNIQUE: 20.2mCi Xe-133 gas inhaled and 7.3mCi Tc-MAA IV. Planar ventilation scan was performed in posterior projection after Xe-133 gas inhalation (wash-in, e quilibrium, and wash-out phases) followed by perfusion scan with Tc-MAA IV in multiple projections. Examination is correlated with recent chest radiograph. FINDINGS: Normal ventilation with appropriate wash-out and no significant air-trapping. No mismatched segmental perfusion defect. IMPRESSION: Very low probability of acute pulmonary embolism.
--- NOTE | 2019-03-17 14:48 | PN ---
Date of Progress Note: 03/17/2019 Subjective: Patient seen and examined. Chart reviewed and case discussed with RN. Patient was very drowsy, difficult to arouse. However, patient was able to give a good history. The patient continues to complain of chest pain as well as abdominal pain. Medications: List reviewed. Physical Examination: Vital Signs: Temperature 97.2, heart rate 86, blood pressure 113/69, respirations 20, O2 98% on room air. General: Asleep, but arousable. Somnolent. Obese female, in some mild distress. CV: S1, S2. Regular rate and rhythm. Peripheral pulses present. Respiratory: Moving air well bilaterally. No wheezing or stridor. Gastrointestinal: Abdomen is soft, nontender, nondistended. Positive bowel sounds. No guarding or rigidity. Extremities: No clubbing, cyanosis, or edema. Neuro: Cranial nerves 2 through 12 intact grossly. No focal neurological deficit. Skin: No rashes. Normal skin turgor. Laboratory Data: Troponin 0.11. Triglycerides 326, cholesterol 220, LDL 124, HDL 31. Creatinine is 2.49. WBC 8.5, hemoglobin and hematocrit 12 and 35.2, platelets 135. Sodium 141, potassium 3.8, chloride 111, CO2 22, BUN 48, glucose 145, calcium 9. Assessment: A 53-year-old female with: 1. Acute generalized abdominal pain, unclear etiology. CT scan is negative, likely viral or bacterial gastroenteritis. We will continue with supportive care and continue IV fluids. 2. Chest pain, which is substernal. NSTEMI. The patient's initial cardiac enzyme is elevated at 0.11. Cardiology has been consulted. We will continue with chest pain guidelines, beta-adonis on hold due to hypotension. We will repeat cardiac enzymes and EKG. 3. Acute on chronic kidney disease, stage 3. We will avoid NSAIDs and nephrotoxins. Continue to monitor creatinine level. 4. Lung cancer status post lobectomy. Patient currently on chemotherapy, states she is in remission. 5. Rheumatoid arthritis. The patient has fentanyl pump in place. 6. Obesity, BMI of 37. 7. 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 8. Mixed hyperlipidemia. Triglycerides and cholesterol are markedly elevated. The patient has low HDL. We will continue with statin. 9. Deep venous thrombosis prophylaxis with Lovenox renally dosed. Disposition: pending Cardiology evaluation. /ANUPAM Voice ID: [id number] Report ID: [id number] MTDD
--- NOTE | 2019-03-17 15:03 | CON ---
History Of Present Illness: Mrs. Lindsay is 53. She came to the hospital because of abdominal and ches t pain largely resolved overnight. The patient has a history of lung cancer it is stage IV with 2 di fferent cancer types present in both lungs. There is no bony or visceral or brain metastasis, but it is bilateral lungs. She has had resection of the mass on the right. She has had chemo and radiatio n therapy on the other lesions and the exact status of her cancer is unknown at this time. She does not use the word remission. Before going through all this, she had a noninvasive cardiac workup in [facility] everything was normal. The patient is not a cigarette smoker. Does not have a history of diabe helene or hypertension or vascular disease or dyslipidemia. The lung cancer occurred in spite of the fa ct she is not a cigarette smoker and she does not have COPD. Physical Examination: General: She is alert, oriented, pleasant. HEENT: Her left cornea is opaque. Extraocular motions normal. Lungs: Clear. No friction rub. Heart: Within normal limits. Abdomen: Soft. Extremities: Normal. Laboratory Data: CAT scan of the abdomen is normal. We do not have a chest x-ray. Her EKG is tom l. We have a troponin of 0.11. Other troponins are pending. Patient's cholesterol is 228, triglyce rides 326, blood sugar 145. Assessment And Plan: I think we are dealing with non-coronary chest pain just does not sound like an acute coronary syndrome. She is an unlikely candidate to have that and she is having pain from all of the other troubles. She has had a recent surgery in her chest that sort of thing, so I will recom mend we not go to an emergency cardiac cath. She did have a clear liquid diet and in we can do seria l enzymes and nuclear stress test. If we were to do a cardiac cath, her kidneys would certainly shut down. Her creatinine is 2.47, apparently was 3 not very long ago. We will have to take a noninvasive approach unless we truly have a strong indicat ion for doing a cardiac cath. SUNITA/ANUPAM Voice ID: [id number] Report ID: [id number]
[2019-03-17] MEDS ORDERED: NITROGLYCERIN 0.4 MG/TAB SL PRN (16:27)
[2019-03-17] MEDS: MORPHINE 2 MG/ML SYR IV PRN (17:09)
[2019-03-17] MEDS ORDERED: COLESTIPOL 1 GM TAB PO PRN (20:06)
[2019-03-17] MEDS: ATORVASTATIN 80 MG TAB PO SCH (20:22)
[2019-03-17] MEDS: TEMAZEPAM 15 MG CAP PO SCH (21:52)
[2019-03-17] MEDS: TRAZODONE 50 MG TABLET PO SCH (21:52)
[2019-03-17] MEDS: PANTOPRAZOLE 40MG TABLET PO SCH (21:52)
[2019-03-17] MEDS: ASCORBIC ACID 500 MG TABLET PO SCH (21:53)
[2019-03-17] MEDS: GABAPENTIN 300 MG CAP PO SCH (21:53)
[2019-03-17] MEDS: METOPROLOL XL 50 MG TAB PO SCH (21:53)
[2019-03-18] MEDS: MORPHINE 2 MG/ML SYR IV PRN ×3 (05:04→23:15)
[2019-03-18] MEDS: ONDANSETRON 4 MG/2 ML VIAL IV PRN ×2 (05:04→19:36)
[2019-03-18] MEDS: ACETAMINOPHEN 500 MG TAB PO PRN (06:28)
[2019-03-18] MEDS: LEVOTHYROXINE SOD 0.05 MG TABLET PO SCH (06:28)
[2019-03-18] MEDS: ASPIRIN 325 MG TAB PO SCH (08:50)
[2019-03-18] MEDS: PANTOPRAZOLE 40MG TABLET PO SCH ×2 (08:51→22:02)
[2019-03-18] MEDS: VITAMIN D 1000 UNIT TAB PO SCH (08:51)
[2019-03-18] MEDS: GABAPENTIN 300 MG CAP PO SCH ×2 (08:52→22:01)
[2019-03-18] MEDS: FOLIC ACID 1 MG TABLET PO SCH (08:52)
[2019-03-18] MEDS: SERTRALINE HCL 50 MG TAB PO SCH (08:52)
[2019-03-18] MEDS: METOPROLOL XL 50 MG TAB PO SCH ×2 (08:53→22:02)
[2019-03-18] MEDS: ASCORBIC ACID 500 MG TABLET PO SCH ×2 (08:53→22:02)
[2019-03-18] MEDS: ENOXAPARIN 100 MG/ML SYR SQ SCH ×2 (08:54→09:00)
[2019-03-18] MEDS: ZINC SULFATE 220 MG CAP PO SCH (08:54)
[2019-03-18] MEDS ORDERED: [UNRECOGNIZED DRUG - OTHER] SQ SCH (09:00)
[2019-03-18] MEDS ORDERED: NACL SQ SCH (09:00)
[2019-03-18] MEDS ORDERED: FENTANYL CITRATE SQ SCH (09:00)
[2019-03-18] MEDS: HYDROCODONE/APAP 7.5/325 MG TAB PO PRN ×2 (10:33→19:36)
--- NOTE | 2019-03-18 15:19 | PN ---
Mrs. Lindsay has a troponin of 0.77. All subsequent ones are trending down or consistent with acute cor onary syndrome, but it must be a very small vessel because her creatinine is 2.5. I would recommend we do a noninvasive workup, treat her medically and only do a cardiac cath if those studies indicate there is a large burden of ischemia. Her underlying disease, stage IV lung cancer, 2 different lung cancer types use the overriding diagnosis for her renal insufficiency. Doing a cardiac cath would al most certainly put her into renal failure based on what we spoke about yesterday. I feel sure that p daryl would deny it unless she is having intractable symptoms. SUNITA/ANUPAM Voice ID: [id number] Report ID: [id number]
[2019-03-18] MEDS: ENOXAPARIN 30 MG/0.3 ML SQ SCH (16:11)
--- NOTE | 2019-03-18 17:25 | PN ---
Date of Progress Note: 03/18/2019 Subjective: The patient is seen and examined. Chart reviewed and case discussed with RN and Dr. Tsang. The patient is doing well overall. Still complains of mild chest tightness, however, no nausea or vomiting. Tolerating clear liquids. Medications: List reviewed. Physical Examination: Vital Signs: Temperature 97.8, heart rate 62, blood pressure 114/69, respirations 15, O2 97% on room air. General: Awake, alert, oriented x3, obese female, in some mild distress. CV: S1, S2. Regular rate and rhythm. Peripheral pulses present. Respiratory: Moving air well bilaterally. No wheezing or stridor. Gastrointestinal: Abdomen is soft, nontender, nondistended. Positive bowel sounds. Extremities: No clubbing, cyanosis, or edema. Neurologic: Nonfocal. Laboratory Data: Troponin 0.25. V/Q scan shows very low probability of pulmonary embolism. Assessment And Plan: A 53-year-old female with: 1. NSTEMI. Pulmonary embolism has been ruled out. He will plan a cardiac stress test. The patient is not a good candidate for cardiac catheterization due to her kidney dysfunction, which will likely result in renal failure leading to dialysis. The patient's pain is improved. We will reduce Lovenox dose to prophylactic dose. 2. Acute generalized abdominal pain, improving, may have been viral gastroenteritis versus bacterial gastroenteritis. The patient has been able to tolerate clear liquids. Nausea is at a minimum. We will advance diet to renal. 3. [id number]-[id number] kidney disease, stage 3. Continue to monitor kidney function. Avoid nonsteroidal anti-inflammatory drugs and nephrotoxins. Nephrology is on board. 4. Lung cancer bilateral, status post right lobectomy. The patient currently on chemotherapy and radiation, follows with Oncology as outpatient. 5. Rheumatoid arthritis. The patient does have fentanyl pump in place, no longer on biologics due to chemotherapy. 6. Headache, improved with oral medications. 7. Obesity, BMI 37. 8. 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 9. Mixed hyperlipidemia. Continue statin. 10. Deep venous thrombosis prophylaxis with Lovenox, renally dosed. Plan: Cardiac stress test. /ANUPAM Voice ID: [id number] Report ID: [id number] [facility]
[2019-03-18] MEDS: ATORVASTATIN 80 MG TAB PO SCH (22:01)
[2019-03-18] MEDS: TEMAZEPAM 15 MG CAP PO SCH (22:01)
[2019-03-18] MEDS: TRAZODONE 50 MG TABLET PO SCH (22:01)
[2019-03-19] MEDS: HYDROCODONE/APAP 7.5/325 MG TAB PO PRN ×2 (01:39→20:48)
[2019-03-19] MEDS: LEVOTHYROXINE SOD 0.05 MG TABLET PO SCH (06:36)
[2019-03-19] MEDS ORDERED: REGADENOSON 0.4 MG/5 ML SYR IV ONE (08:26)
[2019-03-19] MEDS: VITAMIN D 1000 UNIT TAB PO SCH (09:00)
[2019-03-19] MEDS: ONDANSETRON 4 MG/2 ML VIAL IV PRN ×3 (09:48→22:43)
[2019-03-19] MEDS: MORPHINE 2 MG/ML SYR IV PRN ×3 (09:48→22:42)
[2019-03-19] MEDS: SERTRALINE HCL 50 MG TAB PO SCH (09:49)
[2019-03-19] MEDS: FOLIC ACID 1 MG TABLET PO SCH (09:49)
[2019-03-19] MEDS: PANTOPRAZOLE 40MG TABLET PO SCH ×2 (09:50→20:49)
[2019-03-19] MEDS: ASCORBIC ACID 500 MG TABLET PO SCH ×2 (09:50→20:49)
[2019-03-19] MEDS: GABAPENTIN 300 MG CAP PO SCH ×2 (09:50→20:52)
[2019-03-19] MEDS: ZINC SULFATE 220 MG CAP PO SCH (09:50)
[2019-03-19] MEDS: METOPROLOL XL 50 MG TAB PO SCH ×2 (09:51→20:49)
[2019-03-19] MEDS: ASPIRIN 325 MG TAB PO SCH (10:00)
--- NOTE | 2019-03-19 10:21 | RAD REPORT ---
EXAM DESCRIPTION: NM - Rest Stress Cardiac Imaging - 03/19/2019 10:10 am CLINICAL HISTORY: CP Chest pain. COMPARISON: No comparisons TECHNIQUE: The patient was administered approximately 10mCi of Tc 99m Sestamibi prior to resting SPE CT imaging of the heart. The patient was then administered approximately 30 mCi of Tc 99m Sestamibi f ollowing exercise or pharmacologic stress. Multiplanar SPECT images were reviewed. FINDINGS: No stress induced ischemic defect is seen to suggest stress induced ischemia. No fixed def ect is seen to suggest hibernating myocardium or scarred myocardium. The end diastolic volume is 78 ml, the end systolic volume is 23 ml, and the ejection fraction is 70 %. IMPRESSION: No stress induced ischemia.
--- NOTE | 2019-03-19 10:25 | TREADPHA ---
DX: CHEST PAIN Date of Study: 03/19/19 Ht: 5 2 Wt: 206 lb 12.8 oz Consulting Physician: ANGEL MEDICATIONS: TYLENOL, NORCO, LIPITOR, COLESTID, LOVENOX. HISTORY: 53 YEAR OLD FEMALE HERE FOR CHEST PAIN. HISTORY OF CONGESTIVE HEART FAILURE, CSF LEAK, HYPERTENSION, HYPOTHYROIDISIM, MYOCARDIAL INFARCTION, STAGE 4 LUNG CANCER WITH LOBECTOMY/CHEMO. OSTEOARTHRITIS, DEPRESSION, PHYSICIAL EXAMINATION: RESTING B.P.: 115/57 RESTING H.R.: 68 RESTING EKG: NORMAL. PROTOCOL: LEXISCAN EXERCISE TIME: 3:30 B.P. AT PEAK STRESS: 124/63 IMPRESSION: LEXISCAN STRESS TEST PERFORMED. CARDIOLITE INJEC ANTONY PER PROTOCOL. CHEST TIGHTNESS 6/10 THROUGHOUT TEST. NO ARRHYTMIAS NOTED. SEE NUCLEAR MEDICINE REPORT. NON DIAGNOSTIC EKG WITH LEXISCAN STRESS.
[2019-03-19] MEDS ORDERED: ALPRAZOLAM 0.25 MG TABLET PO PRN (10:41)
--- NOTE | 2019-03-19 12:37 | RAD REPORT ---
EXAM DESCRIPTION: Abdomen Pelvis Wo Contrast CLINICAL HISTORY: ABD PAIN COMPARISON: None. TECHNIQUE: CT ABDOMEN PELVIS WITHOUT IV CONTRAST on 03/17/2019 2:16 AM CDT This exam was performed according to our departmental dose-optimization program, which includes autom ated exposure control, adjustment of the mA and/or kV according to patient size and/or use of iterati ve reconstruction technique. FINDINGS: The heart is mildly enlarged. There is a small pericardial effusion. Abdomen: The liver is normal in appearance. There is no biliary dilatation. Cholecystectomy was perfo rmed. There is a small duodenal diverticulum. The pancreas and spleen are normal in appearance. Adren al glands and left kidney are normal. There is a punctate mid pole right renal calculus. Abdominal aorta is normal in course and caliber without aneurysm. There is no free air. There is no r etroperitoneal adenopathy.There is evidence of prior periumbilical abdominal wall hernia repair. Pelvis: There is no bowel obstruction. Urinary bladder is unremarkable. There is no free fluid. Appen dectomy was performed. Skeleton: There are no acute osseous findings. No suspicious bony lesions. IMPRESSION: No acute inflammatory process. Minimal right nephrolithiasis without hydronephrosis. Electronically signed by: Manuel Covarrubias MD 03/17/2019 3:05 AM CDT Due to temporary technical issues with the PACS/Fluency reporting system, reports are being signed by the in house radiologist as a courtesy to ensure prompt reporting. The interpreting radiologist is f ully responsible for the content of the report.
[2019-03-19 16:23] LABS: Absolute Lymphocytes (CBC) 1.6 K/uL (0.7-4.9); Basophils % 0.2 % (0-1.3); Eosinophils % 1.9 % (0-4.4); Hematocrit 31.1 % (36.0-45.0); Lymphocytes % 30.8 % (15.3-44.8); MPV 8.7 fL (7.6-11.3); Monocytes % 10.5 % (3.3-12.3); RBC Red Blood Cell Count 3.27 M/uL (3.86-4.86)
--- NOTE | 2019-03-19 16:25 | ECHO ---
HEIGHT: 5 ft 2 in WEIGHT: 206 lb 12.8 oz DATE OF STUDY: 03/19/[address]: Roberta Lassiter MD 2-DIMENSIONAL: YES M.MODE: YES DOPPLER: YES COLOR FLOW: YES TDS: NO PORTABLE: NO DEFINITY: NO BUBBLE STUDY: NO DIAGNOSIS: CHEST PAIN CARDIAC HISTORY: CATHERIZATION: NO SURGERY: NO PROSTHETIC VALVE: NO PACEMAKER: NO MEASUREMENTS (cm) DIASTOLIC (NORMALS) SYSTOLIC (NORMALS) IVSd 1.0 (0.6-1.2) LA Diam 3.7 (1.9-4.0) LVEF 73% LVIDd 4.7 (3.5-5.7) LVIDs 2.7 (2.0-3.5) %FS 42% LVPWd 1.2 (0.6-1.2) Ao Diam 2.5 (2.0-3.7) 2 DIMENSIONAL ASSESSMENT: RIGHT ATRIUM: NORMAL LEFT ATRIUM: NORMAL RIGHT VENTRICLE: NORMAL LEFT VENTRICLE: NORMAL TRICUSPID VALVE: NORMAL MITRAL VALVE: NORMAL PULMONIC VALVE: NORMAL AORTIC VALVE: NORMAL PERICARDIAL EFFUSION: SMALL AORTIC ROOT: NORMAL LEFT VENTRICULAR WALL MOTION: NORMAL. DOPPLER/COLOR FLOW: MILD MITRAL REGURGITATION AND TRICUSPID REGURGITATION. NORMAL RIGHT VENTRICULAR SYSTOLIC PRESSURE. COMMENTS: NORMAL LEFT VENTRICULAR EJECTION FRACTION. SMALL PERICARDIAL EFFUSION. MILD MITRAL REGURGITATION AND TRICUSPID REGURGITATION. TECHNOLOGIST: THIERRY MARTINEZ
[2019-03-19 16:34] LABS: Potassium 4.1 mmol/L (3.5-5.1)
[2019-03-19] MEDS: ENOXAPARIN 30 MG/0.3 ML SQ SCH (16:37)
--- NOTE | 2019-03-19 16:47 | PN ---
Ms. Lindsay has a normal echocardiogram and Cardiolite. I do not think she requires any further interventions. I do not think her troponin is being elevated indicates an acute coronary syndrome. The chest pain seems to be nonspecific pain postop from lobectomy. I believe she could be discharged home sometime today. HERMILA Voice ID: [id number] Report ID: [id number] DEBI
--- NOTE | 2019-03-19 19:44 | PN ---
Date of Progress Note: 03/19/2019 Subjective: Patient is seen and examined. Chart reviewed and case discussed with RN. The patient w ent for stress test this morning. Medications list reviewed. The patient is still complaining of so me chest tightness. Physical Examination: Vital Signs: Temperature 97.5, heart rate 73, blood pressure 91/53, respirations 15, O2 95% on room air. General: Awake, alert, oriented x3, in some mild distress, ill-appearing obese female. CV: S1, S2. Regular rate and rhythm. Peripheral pulses present. Respiratory: Moving air well bilaterally. No wheezing. Gastrointestinal: Abdomen is soft, nontender, nondistended. Positive bowel sounds. Extremities: No clubbing, cyanosis. The patient has trace pedal edema. Neurologic: Nonfocal. Laboratory Data: Labs are currently pending. Cardiac stress test showed no stress-induced ischemia. Assessment And Plan: A 53-year-old female with. 1.Yrk-BU-zxfihvenv myocardial infarction. Cardiac stress test is negative. Not a good candidate fo r cardiac catheterization due to her kidney dysfunction. We will continue chest pain guidelines. 2.Acute generalized abdominal pain, improved. Continues to have some pain, however, is minimal and she is able to tolerate her diet. Has not thrown up since yesterday. 3.Acute on chronic kidney disease stage 3. We will obtain BMP. Monitor kidney function. Avoid nep hrotoxins. 4.Lung cancer on both bilateral lobes, currently status post partial right lobectomy. The patient h as completed chemotherapy in December and has had radiation treatments. Follows with Oncology as outpat ient. 5.Rheumatoid arthritis. The patient is to continue pain medications. 6.Headache resolved. 7.Obesity, BMI 37. 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 9.Mixed hyperlipidemia. We will continue statin. 10.Deep vein thrombosis prophylaxis with Lovenox, renally dosed. Plan: Disposition is pending cardiology clearance. This may be related to possible pericarditis or effects of chemotherapy and radiation therapy to her lungs causing symptoms. Likely DC in the 24 to 48 hours depending on clinical improvement. We will follow up on echocardiogram. /NICKL Voice ID: [id number] Report ID: [id number]
[2019-03-19] MEDS: ATORVASTATIN 80 MG TAB PO SCH (20:49)
[2019-03-19] MEDS: TRAZODONE 50 MG TABLET PO SCH (20:50)
[2019-03-19] MEDS: LORAZEPAM 0.5 MG TABLET PO PRN (20:54)
[2019-03-20] MEDS: MORPHINE 2 MG/ML SYR IV PRN ×3 (04:40→16:38)
[2019-03-20] MEDS: ONDANSETRON 4 MG/2 ML VIAL IV PRN ×3 (04:41→16:38)
[2019-03-20] MEDS: LORAZEPAM 0.5 MG TABLET PO PRN ×2 (04:46→12:03)
[2019-03-20] MEDS: LEVOTHYROXINE SOD 0.05 MG TABLET PO SCH (06:00)
[2019-03-20] MEDS: VITAMIN D 1000 UNIT TAB PO SCH (08:29)
[2019-03-20] MEDS: FOLIC ACID 1 MG TABLET PO SCH (08:30)
[2019-03-20] MEDS: ASCORBIC ACID 500 MG TABLET PO SCH (08:30)
[2019-03-20] MEDS: ASPIRIN 325 MG TAB PO SCH (08:30)
[2019-03-20] MEDS: SERTRALINE HCL 50 MG TAB PO SCH (08:30)
[2019-03-20] MEDS: GABAPENTIN 300 MG CAP PO SCH (08:30)
[2019-03-20] MEDS: PANTOPRAZOLE 40MG TABLET PO SCH (08:30)
[2019-03-20] MEDS: ZINC SULFATE 220 MG CAP PO SCH (08:30)
[2019-03-20] MEDS: METOPROLOL XL 50 MG TAB PO SCH (08:31)
[2019-03-20] MEDS: HYDROCODONE/APAP 7.5/325 MG TAB PO PRN (08:39)
[2019-03-20 13:09] VITALS: O2SAT 95
[2019-03-20 16:23] VITALS: BP 117/62; TEMP 97.6
[2019-03-20] MEDS: ENOXAPARIN 30 MG/0.3 ML SQ SCH (16:38)
[2019-03-20] MEDS ORDERED: HEPARIN 500 UNIT/5 ML SYR IV SCH (17:00)
--- NOTE | 2019-03-20 18:21 | PN ---
Date of Progress Note: 03/20/[address] Barlow on 03/17/2019, was seen by Dr. Tsang for chest pain. Echocardiogram and stres s test were ordered because of her chest pain. She has stage IV lung cancer. Lexiscan was normal. No evidence of coronary artery disease. Echocardiogram shows trace pericardial effusion, most likely secondary to her lung cancer. No further recommendation from a cardiac standpoint. Her effusion is too small. There is no evidence of tamponade. The case was discussed with Dr. Barlow. OBDULIA/ANUPAM Voice ID: [id number] Report ID: [id number]
--- NOTE | 2019-03-21 17:19 | P.DS ---
Admission Date: 03/17/19 Discharge Date: 03/20/19 Primary Care Provider: Dr. Champion Disposition: ROUTINE DISCHARGE Discharge Condition: GOOD Reason for Admission: chest pain Consultations: Cardiology Brief History of Present Illness: Ms Lindsay is a 53 years old woman with history of lung cancer, she just finished radiation therapy and is under chemotherapy treatment, CKD, HTN, CAD, chronic pain due to RA on fentanyl pump, who was fine until last night after dinner, when she start having epigastric pain associated with nausea. Then she start with chest pain, substernal, pressure like, 8/10 of intensity, associated with SOB. At arrival, the chest pain gradually improved, Initial trop I 0.11, creatinine elevated but about her baseline. EKG shows SR at 75 bpm, without ST- T abnormalities. At my encounter she was chest pain free. Hospital Course: Patient was admitted for non ST elevation myocardial infarction. Cardiology was consulted. Her cardiac stress test was done, which was negative. Patient was not deemed to be a good candidate for cardiac catheterization did her kidney dysfunction. She wants to continued on chest pain guidelines. Her chest pain improved and resolved prior to discharge. She was also noted to have acute on chronic kidney disease, stage III. Her creatinine did return to baseline prior to discharge. She was started on room except for her if heart failure. She does have a history of lung cancer on bilateral lobes, status post partial right lobectomy. It was thought that this pain may be related to that. An echocardiogram was also done, that showed small pericardial effusion, normal ejection fraction of 73%. She was then cleared for discharge from cardiology. She otherwise remained stable throughout the stay. Her diagnoses and treatment plan were explained to her. All questions were answered and she verbalized understanding. She was then discharged home in a safe and stable manner. She was asked to follow up with cardiology in 1 week along with her primary care physician in 2-3 days. Return to emergency room precautions were provided to patient. Vital Signs/Physical Exam: Temp Pulse Resp BP Pulse Ox 97.6 F 72 16 117/62 97 03/20/19 16:00 03/20/19 16:00 03/20/19 16:00 03/20/19 16:00 03/20/19 16:00 General: Alert, In no apparent distress, Oriented x3 HEENT: Atraumatic, PERRLA, EOMI Neck: Supple, JVD not distended Respiratory: Clear to auscultation bilaterally, Normal air movement Cardiovascular: Regular rate/rhythm, Normal S1 S2 Gastrointestinal: Normal bowel sounds, No tenderness Musculoskeletal: No tenderness Integumentary: No rashes Neurological: Normal speech, Normal tone, Normal affect Lymphatics: No axilla or inguinal lymphadenopathy Laboratory Data at Discharge: WBC 5.1 K/uL (4.3-10.9) D 03/19/19 16:05 Hgb 10.3 g/dL (12.0-15.0) L 03/19/19 16:05 Hct 31.1 % (36.0-45.0) L 03/19/19 16:05 Plt Count 125 K/uL (152-406) L 03/19/19 16:05 Sodium 144 mmol/L (136-145) 03/19/19 16:05 Potassium 4.1 mmol/L (3.5-5.1) 03/19/19 16:05 BUN 46 mg/dL (7-18) H 03/19/19 16:05 Creatinine 2.71 mg/dL (0.55-1.3) H 03/19/19 16:05 Glucose 111 mg/dL (74-106) H 03/19/19 16:05 Total Bilirubin 0.1 mg/dL (0.2-1.0) L 03/17/19 01:25 AST 14 U/L (15-37) L 03/17/19 01:25 ALT 18 U/L (12-78) 03/17/19 01:25 Alkaline Phosphatase 72 U/L (45-117) 03/17/19 01:25 Troponin I 0.25 ng/mL (0.0-0.045) H 03/18/19 02:00 Triglycerides 326 mg/dL (<150) H 03/17/19 07:04 Cholesterol 220 mg/dL (<200) H 03/17/19 07:04 HDL Cholesterol 31 mg/dL (40-60) L 03/17/19 07:04 Cholesterol/HDL Ratio 7.10 03/17/19 07:04 Lipase 296 U/L (73-393) 03/17/19 01:25 Home Medications: Folic Acid 1 tab PO DAILY 01/28/19 Metoprolol Succinate [Toprol Xl*] 50 mg PO BID #60 tab 01/28/19 Pantoprazole [Protonix Tab*] 1 tab PO BID 01/28/19 Sertraline [Zoloft*] 3 tab PO DAILY 01/28/19 Temazepam 30 mg PO BEDTIME 01/28/19 Trazodone HCl [Desyrel] 100 mg PO BEDTIME 01/28/19 Ascorbic Acid [Vitamin C] 500 mg PO BID 03/17/19 Cholecalciferol (Vitamin D3) [Vitamin D3] 4,000 mg PO DAILY 03/17/19 Colestipol HCl [Colestid] 1 gm PO DAILY PRN 03/17/19 Fentanyl Citrate-0.9 % NaCl/Pf [Fentanyl 1,000 Mcg/100 ml-Ns] 75 mcg SQ DAILY Gabapentin 600 mg PO BID 03/17/19 Levothyroxine [Synthroid*] 50 mcg PO DAILY 03/17/19 Zinc Sulfate [Zinc Sulfate*] 220 mg PO DAILY 03/17/19 Aspirin Tab [Kal Aspirin*] 325 mg PO DAILY tab 03/20/19 Atorvastatin Calcium [Lipitor] 80 mg PO BEDTIME #30 tab 03/20/19 Ranolazine [Ranolazine ER] 500 mg PO BID #30 tab.er.12h 03/20/19 New Medications: Atorvastatin Calcium [Lipitor] 80 mg PO BEDTIME #30 tab Ranolazine [Ranolazine ER] 500 mg PO BID #30 tab.er.12h Patient Discharge Instructions: Please follow up with your primary care physician in 2-3 days. Please follow up with cardiology in 1 week. Return to the ER for worsening symptoms. Diet: AHA Activity: Ad moe Followup: Grupo Goddard MD [ACTIVE - CAN ADMIT] - 1 Week (heart doctor- Call to schedule an appointment ) Jeanmarie Mensah MD [ACTIVE - CAN ADMIT] - 2-3 Days (primary care physician- Call to schedule an appointment ) Time spent managing pt's care (in minutes): 55
== END 2019-03-20 18:15 | disposition home or self-care (01) | DRG 281 ==
LOC: ER 00:58 → ERHOLD 04:49 → OBSVTOIN 04:49 → 4TH 05:28
PROVIDERS: ADMIT Hospitalist; ATTEND Family Medicine
DX: I21.4 Non-ST elevation (NSTEMI) myocardial infarction (principal); N17.9 Acute kidney failure, unspecified; C34.92 Malignant neoplasm of unspecified part of left bronchus or lung; C34.91 Malignant neoplasm of unspecified part of right bronchus or lung; I31.3 Pericardial effusion (noninflammatory); R10.84 Generalized abdominal pain; I12.9 Hypertensive chronic kidney disease with stage 1 through stage 4 chronic kidney disease, or unspecified chronic kidney disease; N18.3 Chronic kidney disease, stage 3 (moderate); M06.9 Rheumatoid arthritis, unspecified; I25.10 Atherosclerotic heart disease of native coronary artery without angina pectoris; K21.9 Gastro-esophageal reflux disease without esophagitis; E89.0 Postprocedural hypothyroidism; E78.2 Mixed hyperlipidemia; I95.9 Hypotension, unspecified; E66.9 Obesity, unspecified; H54.40 Blindness, one eye, unspecified eye; Z68.37 Body mass index [BMI] 37.0-37.9, adult; I25.2 Old myocardial infarction; Z87.891 Personal history of nicotine dependence; Z92.3 Personal history of irradiation; Z90.2 Acquired absence of lung [part of]
CPT/HCPCS: 36415; 71045; 74176; 77063; 77067; 78452; 78582; 80048; 80061; 80076; 81003; 81015; 83690; 84484; 85025; 87077; 87086; 87088; 87186; 93005; 93017; 93306; 96361; 96374; 96375; 97161; 99285; A9500; A9540; A9558; J1642; J1650; J2270; J2405; J2785

== ENCOUNTER 2019-05-28 15:14 | Emergency (ER) | payer OTHER ==
--- OUTSIDE RECORDS SUMMARY | 2019-05-28 15:19 | XMS REPORT | Clinical Summary ---
:1965 Author Organization [facility] Address [address] [place] [address] Care Team Providers Name Role Phone Juan Miguel Mensah MD Primary Care Provider Allergies Active Allergy Reactions Severity Noted Date Comments Adhesive Tape-Silicones 07/25/2013 Celecoxib Swelling 07/15/2016 Meperidine Hives 07/15/2016 Medications Medication Sig Dispensed Refills Start End Date Status Date levothyroxine Take 50 mcg by 0 Active (SYNTHROID, mouth every LEVOTHROID) 50 MCG morning. tablet SUMAtriptan Take 100 mg by 0 Active (IMITREX) 50 MG mouth once as tablet needed for migraine. May repeat in 2 hours if unresolved. Do not exceed 200 mg in 24 hours. tiZANidine Take 4 mg by 0 Active (ZANAFLEX) 4 MG mouth 4 (four) tablet times a day as needed for muscle spasms. ipratropium-albute Take 3 mL by 3 mL 0 Active rol (DUO-NEB) nebulization 4 8 0.5-2.5 mg/mL (four) times a nebulizer day. traZODone Take 100 mg by 0 Active (DESYREL) 100 MG mouth nightly. tablet prednisoLONE Administer 1 0 01/03/20 Discontinued acetate (PRED drop into the 19 (Therapy FORTE) 1 % left eye 4 completed) ophthalmic (four) times a suspension day. LOTEPREDNOL Apply to eye 2 0 01/03/20 Discontinued ETABONATE (LOTEMAX (two) times a 19 (Therapy OPHT) day. completed) OFLOXACIN OPHT Apply to eye 4 0 02/24/20 Discontinued (four) times a 19 day. Left eye pantoprazole Take 40 mg by 0 02/24/20 Discontinued (PROTONIX) 40 MG mouth every 19 EC tablet morning. doxylamine Take 50 mg by 0 02/24/20 Discontinued (UNISON) 25 mg mouth nightly as 19 tablet needed for sleep. fentaNYL Place 1 patch on 0 06/26/20 Discontinued (DURAGESIC) 100 the skin every 18 mcg/hr other day. furosemide (LASIX) Take 40 mg by 0 02/24/20 Discontinued 20 MG tablet mouth as needed. 19 ondansetron Take 4 mg by 0 11/21/19 Discontinued (ZOFRAN) 4 MG mouth every 12 19 (Reorder) tablet (twelve) hours as needed for nausea or vomiting. sertraline Take 50 mg by 0 02/24/20 Discontinued (ZOLOFT) 50 MG mouth every 19 tablet evening. aspirin (ECOTRIN) Take 81 mg by 0 06/09/20 Discontinued 81 MG enteric mouth daily. 18 (Stop Taking at coated tablet Discharge) metoprolol Take 50 mg by 0 02/24/20 Discontinued tartrate mouth every 19 (LOPRESSOR) 50 MG morning. tablet brimonidine-timolo Administer 1 0 01/03/20 Discontinued l (COMBIGAN) drop into the 19 (Therapy 0.2-0.5 % left eye 4 completed) ophthalmic (four) times a solution day. As needed morPHINE (MSIR) 15 Take 15 mg by 0 06/26/20 Discontinued MG tablet mouth every 8 18 (eight) hours as needed for severe pain. gabapentin Take 800 mg by 0 02/24/20 Discontinued (NEURONTIN) 800 mg mouth nightly. 19 tablet folic acid Take 1 tablet 30 tablet 11 05/23/20 (FOLVITE) 800 MCG (800 mcg total) 8 19 tabletIndications: by mouth daily. Bilateral lung cancer (HCC) acetaminophen-code Take 1-2 tablets 30 tablet 0 06/26/20 Discontinued ine (TYLENOL WITH by mouth every 6 8 18 CODEINE #3) 300-30 (six) hours as mg per tablet needed for moderate pain for up to 30 days. cephalexin Take 1 capsule 20 capsule 0 06/14/20 (KEFLEX) 500 MG (500 mg total) 8 18 capsule by mouth 4 (four) times a day for 5 days. cephalexin Take 1 capsule 20 capsule 0 06/14/20 (KEFLEX) 500 MG (500 mg total) 8 18 capsule by mouth 4 (four) times a day for 5 days. acetaminophen-code Take 1-2 tablets 30 tablet 0 06/26/20 Discontinued ine (TYLENOL WITH by mouth every 6 8 18 CODEINE #3) 300-30 (six) hours as mg per tablet needed for moderate pain for up to 30 days. benadryl/lidocaine Swish and spit 120 mL 0 06/26/20 Discontinued /maalox (MAGIC 10 mL every 6 18 MOUTHWASH) 1:1:1 (six) hours as suspension needed (mouth suspension sores/pain). chlorhexidine Apply 15 mL to 900 mL 0 07/23/20 (PERIDEX) 0.12 % the mouth or 8 18 solution throat 2 (two) times a day for 30 days. nystatin Take 5 mL 60 mL 0 07/23/20 (MYCOSTATIN) (500,000 Units 8 18 100,000 unit/mL total) by mouth suspension 2 (two) times a day for 30 days. Swish in mouth colestipol Take 1 g by 0 02/24/20 Discontinued (COLESTID) 1 gram mouth 2 (two) 19 tablet times a day. dexamethasone Take 1 tablet (4 10 tablet 6 12/16/19 Discontinued (DECADRON) 4 MG mg total) by 9 19 (Stop Taking at tabletIndications: mouth 2 (two) Discharge) Bilateral lung times a day with cancer (HCC) meals for 31 days. Take med on Day 2 and Day 3 following chemotherapy diphenoxylate-atro Take 1 tablet by 100 tablet 0 12/21/19 pine (LOMOTIL) mouth 4 (four) 9 19 2.5-0.025 mg per times a day as tabletIndications: needed for Bilateral lung diarrhea (Max of cancer (HCC) 8 tabs per day) for up to 30 days. ondansetron Take 1 tablet (4 50 tablet 3 12/16/19 Discontinued (ZOFRAN) 4 MG mg total) by 05 24 (Stop Taking at tabletIndications: mouth every 6 Discharge) Bilateral lung (six) hours as cancer (HCC) needed for nausea or vomiting. promethazine Take 1 tablet 50 tablet 3 12/21/19 (PHENERGAN) 25 MG (25 mg total) by 05 24 tabletIndications: mouth every 4 Bilateral lung (four) hours as cancer (HCC) needed for nausea or vomiting for up to 30 days. temazepam Take 30 mg by 0 02/24/20 Discontinued (RESTORIL) 30 mg mouth nightly as 19 capsule needed for sleep. posaconazole Take 3 tablets 84 tablet 0 01/12/20 (NOXAFIL) 100 mg (300 mg total) 05 24 tablet,delayed by mouth daily release (DR/EC) for 28 days. tablet ondansetron ODT Take 1 tablet (4 20 tablet 0 01/15/20 (ZOFRAN-ODT) 4 MG mg total) by 05 24 disintegrating mouth every 8 tablet (eight) hours as needed for nausea or vomiting for up to 30 days. multivitamin Take 1 tablet by 30 tablet 0 01/16/20 (THERAGRAN) tablet mouth daily for 05 24 30 days. diphenoxylate-atro Take 2 tablets 0 02/24/20 Discontinued pine (LOMOTIL) by mouth 12 22 2.5-0.025 mg per (four) times a tablet day as needed for diarrhea. gabapentin Take 1 tablet 30 tablet 0 03/25/20 (NEURONTIN) 600 mg (600 mg total) 05 24 tablet by mouth nightly for 30 days. metoprolol Take 1 tablet 60 tablet 0 03/25/20 tartrate (50 mg total) by 05 24 (LOPRESSOR) 50 mg mouth 2 (two) tablet times a day for 30 days. pantoprazole Take 1 tablet 60 tablet 0 03/25/20 (PROTONIX) 40 MG (40 mg total) by 05 24 EC tablet mouth 2 (two) times a day for 30 days. sertraline Take 1 tablet 30 tablet 0 03/26/20 (ZOLOFT) 100 MG (100 mg total) 9 19 tablet by mouth daily for 30 days. ascorbic acid, Take 1 tablet 30 tablet 0 03/26/20 vitamin C, (1,000 mg total) 05 24 (VITAMIN C) 1000 by mouth daily MG tablet for 30 days. cholecalciferol, Take 1 tablet 30 tablet 0 03/26/20 vitamin D3, 4,000 (4,000 Units 9 unit tablet total) by mouth daily for 30 days. polyethylene Take 34 g by 60 packet 0 03/26/20 glycol (MIRALAX) mouth daily for 05 24 17 gram packet 30 days. zinc sulfate Take 1 capsule 30 capsule 0 03/25/20 (ZINCATE) 220 (50) (220 mg total) 9 19 mg capsule by mouth daily for 30 days. ondansetron ODT Take 1 tablet (4 60 tablet 0 03/25/20 (ZOFRAN-ODT) 4 MG mg total) by 05 24 disintegrating mouth every 8 tablet (eight) hours as needed for nausea or vomiting for up to 30 days. butalbital-acetami Take 1 tablet by 15 tablet 0 03/25/20 nophen-caff mouth 2 (two) 9 (FIORICET, ESGIC) times a day as 50-325-40 mg per needed for tablet headaches for up to 30 days. clonAZEPAM Take 1 tablet 30 tablet 0 03/05/20 (KlonoPIN) 0.5 MG (0.5 mg total) 9 19 tablet by mouth 3 (three) times a day as needed for seizures for up to 10 days. morPHINE Take 1 tablet 10 tablet 0 02/27/20 immediate-release (15 mg total) by 05 24 15 MG tablet mouth every 4 (four) hours as needed for severe pain for up to 3 days. Max Daily Amount: 90 mg Active Problems Problem Noted Date Ataxia 02/15/2019 Intractable headache 01/31/2019 Arthritis 06/14/2018 Coronary artery disease involving [place] coronary artery of [place] heart 06/14 without angina pectoris Bilateral lung cancer 04/21/2018 Distal radius fracture, left 07/20/2016 Displaced fracture of distal end of left radius 07/15/2016 Encounters Date Type Specialty Care Team Description 05/28/2019 Telephone Oncology Elder Ratliff RN 04/16/2019 Office Visit Oncology Jakob Carrera MD Bilateral lung cancer (HCC) (Primary Dx) 04/16/2019 Orders Only Oncology Kt, Bilateral lung cancer TRAVIS Richard (HCC) (Primary Dx) 04/12/2019 Hospital Encounter Radiology Jakob Carrera MD Bilateral lung cancer (HCC) 03/27/2019 Orders Only Oncology Elder Ratliff Bilateral lung cancer ALEX Penn (HCC) (Primary Dx) 03/15/2019 Telephone Oncology Elder Ratliff RN 03/15/2019 Telephone Oncology Jkaob Carrera MD 03/12/2019 Telephone Oncology Jakob Carrera MD 03/05/2019 Hospital Encounter Radiation Oncology Mathieu Luu - 03/06/2019 02/26/2019 Hospital Encounter Radiation Oncology Mathieu Luu MD 02/26/2019 Telephone Oncology Jakob Carrera MD 02/21/2019 Documentation General Surgery Stephan Weir MD 02/15/2019 Hospital Encounter Rehabilitation JackienelljoaquinRosa Ataxia (Primary Dx); - MD Minerva Bilateral lung cancer (HCC) 02/23/2019 02/13/2019 Hospital Encounter Radiation Oncology Mathieu Luu - 02/14/2019 02/01/2019 Telephone Cardiothoracic [facility] [place] 01/31/2019 Hospital Encounter General Internal Boyareddigari, Intractable headache, unspecified chronicity pattern, unspecified headache type (Primary Dx) ; - Medicine Yassine Boo, Dizzinesses; 02/15/2019 Abdominal pain, unspecified abdominal location; Dk, Chronic kidney disease, unspecified CKD stage; MD Abelardo Chest pain, atypical; Vivek Root Fever, unspecified fever cause MD Osmin Swan Gonzalo, MD Carbajal, Hector, MD 01/31/2019 Travel 01/31/2019 Documentation Oncology Elder Ratliff RN 01/30/2019 Telephone Cardiothoracic Deloris Campos [place] 01/26/2019 Telephone Cardiothoracic Deloris Schwarz MA 01/23/2019 Hospital Encounter Radiology Stephan Weir Bilateral lung cancer (HCC ); MD Jose SOB (shortness of breath) 01/23/2019 Hospital Encounter Radiology Stephan Weir Bilateral lung cancer (HCC ); MD Jose SOB (shortness of breath) 01/23/2019 Hospital Encounter Pulmonology Stephan Weir Bilateral lung cancer ( HCC); MD Jose SOB (shortness of breath) 01/08/2019 Telephone Cardiothoracic Jasmin, Deloris Castaneda MA 01/02/2019 Office Visit Cardiothoracic Stephan Weir Bilateral lung cancer (HCC ) (Primary Dx); Surgery MD Jose SOB (shortness of breath) 01/02/2019 Lab Lab Jakob Carrera MD Bilateral lung cancer (HCC) 01/02/2019 Office Visit Oncology Jakob Carrera MD Bilateral lung cancer (HCC) (Primary Dx) 01/02/2019 Hospital Encounter Radiology Jakob Carrera MD Bilateral lung cancer (HCC) 12/21/2018 Orders Only Oncology Araceli Pacheco, Coronary artery disease involving walk[place] coronary artery of [place] heart without angina pectoris ( Primary Dx); MA Arthritis; Bilateral lung cancer (HCC) 12/21/2018 Orders Only Oncology Araceli Pacheco MA 12/21/2018 Telephone Oncology Elder Ratliff RN 12/21/2018 Orders Only Oncology Elder Ratliff Bilateral lung cancer ALEX Penn (HCC) (Primary Dx) 12/20/2018 Telephone Oncology Araceli Pacheco MA 12/18/2018 Telephone Oncology Araceli Pacheco MA 12/18/2018 Orders Only Oncology Araceli Pacheco, Coronary artery disease involving walk[place] coronary artery of walk[place] heart without angina pectoris ( Primary Dx); MA Arthritis; Bilateral lung cancer (HCC); Displaced fracture of distal end of left radius; Closed Colles' fracture of left radius, initial encounter 12/08/2018 Surgery Pulmonology ELIZABETH Watts MD 12/05/2018 Hospital Encounter Oncology Emy, Bilateral lung cancer - MD Redd (HCC) (Primary Dx) 12/15/2018 Peña Reece MD Huaman Vargas, Gonzalo, MD 12/05/2018 Office Visit Oncology Jakob Carrera MD Bilateral lung cancer (HCC ) (Primary Dx); Thrombocytopenia (HCC); SOB (shortness of breath); ROSALVA (acute kidney injury) (HCC) 12/05/2018 Nurse Only Oncology Jakob Carrera MD Bilateral lung cancer (HCC) (Primary Dx) 12/05/2018 Orders Only Oncology Elder Ratliff RN 12/05/2018 Orders Only Oncology Elder Ratliff RN 12/04/2018 Telephone Oncology Jakob Carrera MD 12/01/2018 Telephone Oncology Jakob Carrera MD 11/29/2018 Telephone Oncology Jakob Carrera MD 11/28/2018 Telephone Cardiothoracic [facility] [place] 11/27/2018 Telephone Oncology Jakob Carrera MD 11/27/2018 Orders Only Oncology Lázaro Gates RN 11/26/2018 Intake Access N/A 11/26/2018 Intake Access N/A 11/23/2018 Orders Only Oncology Jakob Carrera MD Bilateral lung cancer (HCC) 11/20/2018 Telephone Oncology Elder Ratliff RN 11/20/2018 Orders Only Oncology Elder Ratliff Bilateral lung cancer ALEX Penn (HCC) (Primary Dx) 11/07/2018 Hospital Encounter Radiology Jakob Carrera MD Bilateral lung cancer (HCC) 11/06/2018 Office Visit Oncology Jakob Carrera MD Bilateral lung cancer (HCC ) (Primary Dx); Arthritis 11/06/2018 Infusion Oncology Jakob Carrera MD Bilateral lung cancer (HCC) (Primary Dx) 11/06/2018 Social Work Oncology Claudio Albarado LMSW 11/06/2018 Orders Only Oncology Elder Ratliff Bilateral lung cancer ALEX Penn (HCC) (Primary Dx) 11/06/2018 Telephone Oncology Jakob Carrera MD 11/06/2018 Orders Only Oncology Elder Ratliff Bilateral lung cancer ALEX Penn (HCC) (Primary Dx) 10/17/2018 Telephone Oncology Jakob [...] (HCC) (Primary Dx) 10/11/2018 Orders Only Oncology Ratliff, Lotti Bilateral lung cancer ALEX Penn (HCC) (Primary Dx) 10/03/2018 Orders Only Oncology Charline Torres, RPH 10/03/2018 Orders Only Oncology Charline Torres, RPH 10/02/2018 Office Visit Oncology Jakob Carrera MD Bilateral lung cancer (HCC ) (Primary Dx); Arthritis 10/02/2018 Infusion Oncology Jakob Carrera MD Bilateral lung cancer (HCC) (Primary Dx) 09/29/2018 Hospital Encounter Radiology Jakob Carrera MD Coronary artery disease involving [place] coronary artery of [place] heart without angina pectoris ; Arthritis; Bilateral [...] Ratliff, RN 09/27/2018 Orders Only Oncology Elder Ratliff, RN 09/26/2018 Orders Only Oncology Ratliff, Lotti Bilateral lung cancer Fili RN (HCC) (Primary Dx) 09/26/2018 Orders Only Oncology Araceli Pacheco, Coronary artery disease involving walk[place] coronary artery of walk[place] heart without angina pectoris ( Primary Dx); MA Arthritis; Bilateral lung cancer (HCC) 09/25/2018 Documentation Oncology Kanchan Hartman MA 09/22/2018 Orders Only Oncology Ratliff, Lotti Bilateral lung cancer Fili RN (HCC) (Primary Dx) 09/21/2018 Orders Only Oncology Ratliff, Lotti Bilateral lung cancer Fili RN (HCC) (Primary Dx) 09/21/2018 Telephone Oncology Jakob Carrera MD 09/13/2018 Orders Only Oncology Araceli Pacheco, Coronary artery disease involving walk[place] coronary artery of walk[place] heart without angina pectoris ( Primary Dx); MA Arthritis; Bilateral lung cancer (HCC) 09/11/2018 Office Visit Oncology Jakob Carrera MD Bilateral lung cancer (HCC ) (Primary Dx); Arthritis; Coronary artery disease involving walk[place] coronary artery of walk[place] heart without angina pectoris 09/11/2018 Infusion Oncology Jakob Carrera MD Bilateral lung cancer Colluro, (HCC) (Primary Dx) ALEX Argueta 09/08/2018 Infusion Oncology Jakob Carrera MD Bilateral lung cancer Champagne, (HCC) (Primary Dx) ALEX Valera 09/08/2018 Telephone Oncology Elder Ratliff RN 08/23/2018 Telephone Oncology Jakob Carrera MD 08/17/2018 Infusion Oncology Jakob Carrera MD Bilateral lung cancer (HCC) (Primary Dx) 08/16/2018 Office Visit Oncology Jakob Carrera MD Bilateral lung cancer (HCC) 08/16/2018 Infusion Oncology Jakob Carrera MD Bilateral lung cancer Gardianos, (HCC) (Primary Dx) ALEX Parr 08/16/2018 Orders Only Oncology Jakob Carrera MD Bilateral lung cancer (HCC) 07/26/2018 Infusion Oncology Jakob Carrera MD Bilateral lung cancer Sarah Allen RN ([facility]) (Primary Dx) 07/26/2018 Hospital Encounter Radiology Jakob Carrera MD Bilateral lung cancer Sanam, (HCC) Wang Asif MD 07/26/2018 Orders Only Oncology Sanam, Bilateral lung cancer Wang Asif (HCC) 07/25/2018 Orders Only Oncology Earnest Villagran RN 07/13/2018 Orders Only Oncology Kanchan Hartman MA 07/05/2018 Office Visit Oncology Jakob Carrera MD Bilateral lung cancer (HCC ) (Primary Dx); Coronary artery disease involving walk[place] coronary artery of walk[place] heart without angina pectoris; Arthritis 07/05/2018 Infusion Oncology Jakob Carrera MD Bilateral lung cancer (HCC) (Primary Dx) 07/05/2018 Orders Only Cardiology Araceli Pacheco, Bilateral lung cancer TRAVIS (HCC) (Primary Dx) 07/04/2018 Orders Only Oncology Jakob Carrera MD 06/26/2018 Hospital Encounter Radiology Jakob Carrera MD Bilateral lung cancer (HCC) 06/23/2018 Orders Only Oncology Elder Ratliff Bilateral lung cancer ALEX Penn (HCC) (Primary Dx) 06/23/2018 Telephone Oncology Jakob Carrera MD 06/19/2018 Clinical Support Neurosurgery Ho, Chronic pain syndrome ALEX Perez (Primary Dx) 06/14/2018 Office Visit Oncology Jakob [...] cancer (HCC) 06/09/2018 Anesthesia Event General Surgery Rashel Cuello MD Mathews, Rajy Jacob, MD 06/09/2018 Surgery General Surgery Travon Grace, PLACEMENT OF PAIN PUMP MD SYSTEM 06/09/2018 Hospital Encounter General Surgery Travon [...] RN 05/29/2018 Telephone Oncology Jakob Carrera MD after 05/27/2018 Family History Medical History Relation Name Comments [...] Vital Signs Vital Sign Reading Time Taken Comments Blood Pressure 133/79 04/16/2019 11:02 AM CDT Pulse 94 04/16/2019 11:02 AM CDT Temperature 36.2 C (97.2 F) 02/23/2019 4:37 PM CDT Respiratory Rate 18 04/16/2019 11:02 AM CDT Oxygen Saturation 98% 02/23/2019 4:37 PM CDT Inhaled Oxygen Concentration - - Weight 101 kg (223 lb 9.6 oz) 04/16/2019 11:02 AM CDT Height 157.5 cm (5' 2") 04/16/2019 11:02 AM CDT Body Mass Index 40.9 04/16/2019 11:02 AM CDT Plan of Treatment Date Type Specialty Care Team Description 07/16/2019 Appointment Radiology Jakob Carrera MD [address] [place] [phone] 07/16/2019 Office Visit Oncology Jakob Carrera MD [address] [place] [address] Health Maintenance Due Date Last Done Comments BREAST CANCER SCREENING 2013 COLONOSCOPY SCREENING 2013 SHINGLES VACCINES (#1) 2013 INFLUENZA VACCINE 04/05/2019 CERVICAL CANCER SCREENING 12/11/2021 12/11/2018, 12/08/2018, 04/06/2018, Additional history exists Implants Implanted Type Area Watermaster Device Shelf Model / Identifier Expiration Serial / Date Lot Port Injctbl Smart Port Ct W/ Dtchd Plyurthn Cath 8fr - [id number] Implantable N/A: [employer] 01/02/2021 [id number] / Implanted: 06/12/2018 at [facility] (Quantity not on file) Infusion Ports N /A / or Accessories [id number] Pump Infsn Synchromed Ii W/ Fltr Sut Loop Prgrmbl Rsvr 20ml - [id number] Neurosurgical N/A: [employer] 10/19/2019 [id number] / Implanted: Qty: 1 on 06/09/2018 by Travon Grace MD at [facility] Implants N /A NEUROMODULATION / [id number] Description:Hospital-owned Pain Mgmt Pain Mgmt Implantable Devices Implantable Devices Ports Cath Ports Passer Intrathcl Cath Rp Tip Obtrtr 38cm - [id number] Surgical N/A: [employer] [place] - [id number] / Implanted: Qty: 1 on 06/09/2018 by Travon Grace MD at [facility] Implantable Shunts N/A NEUROLOGICAL 019 / or Shunt Extenders [id number] Kit Selnt Fibrin Humn Hmsts Surgy 5ml Evicel - [id number] Surgical Implants; N/A: [employer] - [id number] / Implanted: Qty: 1 on 04/21/2018 by Stephan Weir MD at [facility] Expanders; N/A 019 / Extenders; Surgical [id number] Wires Closure Wnd Tiss Rpr Sys - [id number] Surgical Implants; N/A: Hydrobee XC 201 01 / Implanted: Qty: 1 on 06/09/2018 by Travon Grace MD at [facility] Expanders; N/A INC 022 / Extenders; Surgical [id number] Wires Procedures Procedure Name Priority Date/Time Associated Comments Diagnosis PET CT SKULL BASE TO MID Routine 04/12/2019 12:42 Bilateral lung Results for this THIGH PM CDT cancer (HCC) procedure are in the results section. POC GLUCOSE Routine 04/12/2019 11:21 Results for this AM CDT procedure are in the results section. HC COMPLETE BLD COUNT Routine 02/21/2019 5:30 Results for this W/AUTO DIFF AM CDT procedure are in the results section. XR ABDOMEN 1 VW PORTABLE Routine 02/19/2019 9:12 Results for this PM CDT procedure are in the results section. PREPARE RBC Routine 02/19/2019 7:50 Results for this PM CDT procedure are in the results section. TYPE AND SCREEN Routine 02/19/2019 7:50 Results for this PM CDT procedure are in the results section. HC COMPLETE BLD COUNT Routine 02/19/2019 6:30 Results for this W/AUTO DIFF AM CDT procedure are in the results section. ESTIMATED GFR Routine 02/19/2019 5:20 Results for this AM CDT procedure are in the results section. COMPREHENSIVE METABOLIC Routine 02/19/2019 5:20 Results for this PANEL AM CDT procedure are in the results section. MRI CERVICAL SPINE WO Routine 02/17/2019 11:24 Results for this CONTRAST AM CDT procedure are in the results section. ALLEY TITER Routine 02/17/2019 6:40 Results for this AM CDT procedure are in the results section. HC COMPLETE BLD COUNT Routine 02/17/2019 6:40 Results for this W/AUTO DIFF AM CDT procedure are in the results section. NEURONAL CELL ABS, SERUM Routine 02/17/2019 6:40 Results for this AM CDT procedure are in the results section. SEDIMENTATION RATE Routine 02/17/2019 6:40 Results for this AM CDT procedure are in the results section. C-REACTIVE PROTEIN Routine 02/17/2019 6:40 Results for this AM CDT procedure are in the results section. RHEUMATOID FACTOR Routine 02/17/2019 6:40 Results for this AM CDT procedure are in the results section. ALLEY Routine 02/17/2019 6:40 Results for this AM CDT procedure are in the results section. POC GLUCOSE Routine 02/15/2019 5:27 Results for this PM CDT procedure are in the results section. POC GLUCOSE Routine 02/15/2019 12:14 Results for this PM CDT procedure are in the results section. POC GLUCOSE Routine 02/15/2019 7:46 Results for this AM CDT procedure are in the results section. HC COMPLETE BLD COUNT Routine 02/15/2019 5:00 Results for this W/AUTO DIFF AM CDT procedure are in the results section. ESTIMATED GFR Routine 02/15/2019 4:00 Results for this AM CDT procedure are in the results section. MAGNESIUM LEVEL Routine 02/15/2019 4:00 Results for this AM CDT procedure are in the results section. PHOSPHORUS LEVEL Routine 02/15/2019 4:00 Results for this AM CDT procedure are in the results section. BASIC METABOLIC PANEL Routine 02/15/2019 4:00 Results for this AM CDT procedure are in the results section. POC GLUCOSE Routine 02/14/2019 9:00 Results for this PM CDT procedure are in the results section. XR ABDOMEN 1 VW PORTABLE Routine 02/14/2019 8:10 Results for this PM CDT procedure are in the results section. POC GLUCOSE Routine 02/14/2019 5:08 Results for this PM CDT procedure are in the results section. ESTIMATED GFR Routine 02/14/2019 4:00 Results for this AM CDT procedure are in the results section. MAGNESIUM LEVEL Routine 02/14/2019 4:00 Results for this AM CDT procedure are in the results section. PHOSPHORUS LEVEL Routine 02/14/2019 4:00 Results for this AM CDT procedure are in the results section. BASIC METABOLIC PANEL Routine 02/14/2019 4:00 Results for this AM CDT procedure are in the results section. HC COMPLETE BLD COUNT Routine 02/14/2019 4:00 Results for this W/AUTO DIFF AM CDT procedure are in the results section. CT SINUS WO CONTRAST Routine 02/13/2019 3:34 Results for this PM CDT procedure are in the results section. IR LUMBAR PUNCTURE Routine 02/13/2019 2:09 Results for this PM CDT procedure are in the results section. CT MAXILLOFACIAL WO Routine 02/13/2019 10:46 Results for this CONTRAST AM CDT procedure are in the results section. CORTISOL LEVEL, RANDOM Timed 02/13/2019 9:08 Results for this AM CDT procedure are in the results section. HC COMPLETE BLD COUNT Routine 02/13/2019 4:40 Results for this W/AUTO DIFF AM CDT procedure are in the results section. ESTIMATED GFR Routine 02/13/2019 4:00 Results for this AM CDT procedure are in the results section. PHOSPHORUS LEVEL Routine 02/13/2019 4:00 Results for this AM CDT procedure are in the results section. MAGNESIUM LEVEL Routine 02/13/2019 4:00 Results for this AM CDT procedure are in the results section. BASIC METABOLIC PANEL Routine 02/13/2019 4:00 Results for this AM CDT procedure are in the results section. ESTIMATED GFR Routine 02/12/2019 4:00 Results for this AM CDT procedure are in the results section. PHOSPHORUS LEVEL Routine 02/12/2019 4:00 Results for this AM CDT procedure are in the results section. MAGNESIUM LEVEL Routine 02/12/2019 4:00 Results for this AM CDT procedure are in the results section. BASIC METABOLIC PANEL Routine 02/12/2019 4:00 Results for this AM CDT procedure are in the results section. HC COMPLETE BLD COUNT Routine 02/12/2019 4:00 Results for this W/AUTO DIFF AM CDT procedure are in the results section. ESTIMATED GFR Routine 02/11/2019 4:34 Results for this AM CDT procedure are in the results section. ADRENOCORTICOTROPIC HORMONE Routine 02/11/2019 4:34 Results for this AM CDT procedure are in the results section. CORTISOL LEVEL, RANDOM Routine 02/11/2019 4:34 Results for this AM CDT procedure are in the results section. PHOSPHORUS LEVEL Routine 02/11/2019 4:34 Results for this AM CDT procedure are in the results section. MAGNESIUM LEVEL Routine 02/11/2019 4:34 Results for this AM CDT procedure are in the results section. BASIC METABOLIC PANEL Routine 02/11/2019 4:34 Results for this AM CDT procedure are in the results section. HC COMPLETE BLD COUNT Routine 02/11/2019 4:34 Results for this W/AUTO DIFF AM CDT procedure are in the results section. CORTISOL LEVEL, RANDOM Routine 02/10/2019 3:25 Results for this AM CDT procedure are in the results section. XR LUMBAR SPINE 2 OR 3 VW Routine 02/09/2019 8:50 Results for this PM CDT procedure are in the results section. METHYLMALONIC ACID, SERUM Routine 02/09/2019 5:30 Results for this PM CDT procedure are in the results section. COPPER LEVEL, SERUM Routine 02/09/2019 5:30 Results for this PM CDT procedure are in the results section. ZINC LEVEL, SERUM Routine 02/09/2019 5:30 Results for this PM CDT procedure are in the results section. VITAMIN D 25 HYDROXY LEVEL Routine 02/09/2019 5:30 Results for this PM CDT procedure are in the results section. VITAMIN C LEVEL, PLASMA Routine 02/09/2019 5:30 Results for this PM CDT procedure are in the results section. TAMEKA MEJIAS VIRUS (EBV) BY Routine 02/09/2019 7:29 Results for this PCR AM CDT procedure are in the results section. CYTOMEGALOVIRUS BY PCR Routine 02/09/2019 5:00 Results for this AM CDT procedure are in the results section. HC COMPLETE BLD COUNT Routine 02/09/2019 5:00 Results for this W/AUTO DIFF AM CDT procedure are in the results section. ESTIMATED GFR Routine 02/09/2019 4:00 Results for this AM CDT procedure are in the results section. C-REACTIVE PROTEIN Routine 02/09/2019 4:00 Results for this AM CDT procedure are in the results section. ANTISTREPTOLYSIN O Routine 02/09/2019 4:00 Results for this AM CDT procedure are in the results section. PHOSPHORUS LEVEL Routine 02/09/2019 4:00 Results for this AM CDT procedure are in the results section. MAGNESIUM LEVEL Routine 02/09/2019 4:00 Results for this AM CDT procedure are in the results section. BASIC METABOLIC PANEL Routine 02/09/2019 4:00 Results for this AM CDT procedure are in the results section. STREP SCREEN CULTURE Routine 02/08/2019 4:43 Results for this PM CDT procedure are in the results section. GROUP A STREP, RAPID Routine 02/08/2019 4:43 Results for this ANTIGEN PM CDT procedure are in the results section. RETICULOCYTE COUNT Routine 02/08/2019 6:30 Results for this AM CDT procedure are in the results section. HC COMPLETE BLD COUNT Routine 02/08/2019 6:30 Results for this W/AUTO DIFF AM CDT procedure are in the results section. ESTIMATED GFR Routine 02/08/2019 4:00 Results for this AM CDT procedure are in the results section. TOTAL IRON BINDING CAPACITY Routine 02/08/2019 4:00 Results for this AM CDT procedure are in the results section. VITAMIN B12 LEVEL Routine 02/08/2019 4:00 Results for this AM CDT procedure are in the results section. LDH Routine 02/08/2019 4:00 Results for this AM CDT procedure are in the results section. FOLATE LEVEL Routine 02/08/2019 4:00 Results for this AM CDT procedure are in the results section. FERRITIN LEVEL Routine 02/08/2019 4:00 Results for this AM CDT procedure are in the results section. T4, FREE Routine 02/08/2019 4:00 Results for this AM CDT procedure are in the results section. THYROID STIMULATING HORMONE Routine 02/08/2019 4:00 Results for this AM CDT procedure are in the results section. HEPATIC FUNCTION PANEL Routine 02/08/2019 4:00 Results for this AM CDT procedure are in the results section. PHOSPHORUS LEVEL Routine 02/08/2019 4:00 Results for this AM CDT procedure are in the results section. MAGNESIUM LEVEL Routine 02/08/2019 4:00 Results for this AM CDT procedure are in the results section. BASIC METABOLIC PANEL Routine 02/08/2019 4:00 Results for this AM CDT procedure are in the results section. HC COMPLETE BLD COUNT Routine 02/07/2019 5:00 Results for this W/AUTO DIFF AM CDT procedure are in the results section. ESTIMATED GFR Routine 02/07/2019 4:00 Results for this AM CDT procedure are in the results section. PHOSPHORUS LEVEL Routine 02/07/2019 4:00 Results for this AM CDT procedure are in the results section. MAGNESIUM LEVEL Routine 02/07/2019 4:00 Results for this AM CDT procedure are in the results section. BASIC METABOLIC PANEL Routine 02/07/2019 4:00 Results for this AM CDT procedure are in the results section. ESTIMATED GFR Routine 02/06/2019 6:10 Results for this AM CDT procedure are in the results section. BASIC METABOLIC PANEL Routine 02/06/2019 6:10 Results for this AM CDT procedure are in the results section. HC COMPLETE BLD COUNT Routine 02/06/2019 6:10 Results for this W/AUTO DIFF AM CDT procedure are in the results section. ESTIMATED GFR Routine 02/05/2019 4:15 Results for this AM CDT procedure are in the results section. BASIC METABOLIC PANEL Routine 02/05/2019 4:15 Results for this AM CDT procedure are in the results section. HC COMPLETE BLD COUNT Routine 02/05/2019 4:15 Results for this W/AUTO DIFF AM CDT procedure are in the results section. ESTIMATED GFR Routine 02/04/2019 4:00 Results for this AM CDT procedure are in the results section. BASIC METABOLIC PANEL Routine 02/04/2019 4:00 Results for this AM CDT procedure are in the results section. HC COMPLETE BLD COUNT Routine 02/04/2019 4:00 Results for this W/AUTO DIFF AM CDT procedure are in the results section. IR LUMBAR PUNCTURE Routine 02/03/2019 2:38 Results for this PM CDT procedure are in the results section. ANGIOTENSIN CONVERTING Routine 02/03/2019 2:00 Results for this ENZYME, CSF PM CDT procedure are in the results section. OLIGOCLONAL BANDING, CSF Routine 02/03/2019 2:00 Results for this PM CDT procedure are in the results section. MISCELLANEOUS REFERRAL TEST Routine 02/03/2019 2:00 Results for this PM CDT procedure are in the results section. MISCELLANEOUS REFERRAL TEST Routine 02/03/2019 2:00 Results for this PM CDT procedure are in the results section. MYELIN BASIC PROTEIN Routine 02/03/2019 2:00 Results for this PM CDT procedure are in the results section. FLOW CYTOMETRY EVALUATION Routine 02/03/2019 2:00 Results for this PM CDT procedure are in the results section. VDRL, CSF SCREEN Routine 02/03/2019 2:00 Results for this PM CDT procedure are in the results section. IGG SYNTHESIS RATE STUDY Routine 02/03/2019 2:00 Results for this PM CDT procedure are in the results section. GLUCOSE LEVEL, CSF Routine 02/03/2019 2:00 Results for this PM CDT procedure are in the results section. PROTEIN, CSF Routine 02/03/2019 2:00 Results for this PM CDT procedure are in the results section. CSF CELL COUNT WITH Routine 02/03/2019 2:00 Results for this DIFFERENTIAL PM CDT procedure are in the results section. GRAM STAIN Routine 02/03/2019 2:00 Results for this PM CDT procedure are in the results section. CRYPTOCOCCAL ANTIGEN SCREEN Routine 02/03/2019 2:00 Results for this PM CDT procedure are in the results section. AFB CULTURE Routine 02/03/2019 2:00 Results for this PM CDT procedure are in the results section. FUNGUS CULTURE Routine 02/03/2019 2:00 Results for this PM CDT procedure are in the results section. CSF CULTURE Routine 02/03/2019 2:00 Results for this PM CDT procedure are in the results section. HC COMPLETE BLD COUNT Routine 02/03/2019 6:57 Results for this W/AUTO DIFF AM CDT procedure are in the results section. ESTIMATED GFR Routine 02/03/2019 4:00 Results for this AM CDT procedure are in the results section. BASIC METABOLIC PANEL Routine 02/03/2019 4:00 Results for this AM CDT procedure are in the results section. CT CERVICAL SPINE WO Routine 02/02/2019 3:33 Results for this CONTRAST PM CDT procedure are in the results section. ESTIMATED GFR Routine 02/02/2019 4:30 Results for this AM CDT procedure are in the results section. BASIC METABOLIC PANEL Routine 02/02/2019 4:30 Results for this AM CDT procedure are in the results section. HC COMPLETE BLD COUNT Routine 02/02/2019 4:30 Results for this W/AUTO DIFF AM CDT procedure are in the results section. MRI BRAIN WO CONTRAST STAT 02/01/2019 2:48 Results for this PM CDT procedure are in the results section. ESTIMATED GFR Routine 02/01/2019 4:55 Results for this AM CDT procedure are in the results section. PHOSPHORUS LEVEL Routine 02/01/2019 4:55 Results for this AM CDT procedure are in the results section. MAGNESIUM LEVEL Routine 02/01/2019 4:55 Results for this AM CDT procedure are in the results section. LACTIC ACID LEVEL Routine 02/01/2019 4:55 Results for this AM CDT procedure are in the results section. COMPREHENSIVE METABOLIC Routine 02/01/2019 4:55 Results for this PANEL AM CDT procedure are in the results section. HC COMPLETE BLD COUNT Routine 02/01/2019 4:55 Results for this W/AUTO DIFF AM CDT procedure are in the results section. XR CHEST 1 VW PORTABLE STAT 01/31/2019 7:14 Results for this PM CDT procedure are in the results section. RESPIRATORY PATHOGEN PANEL Routine 01/31/2019 6:33 Results for this PM CDT procedure are in the results section. INFLUENZA ANTIGEN TEST, Routine 01/31/2019 6:33 Results for this REFLEX NEGATIVE TO RPP PM CDT procedure are in the results section. ECG 12-LEAD STAT 01/31/2019 6:29 Results for this PM CDT procedure are in the results section. CT ABDOMEN PELVIS WO STAT 01/31/2019 6:07 Results for this CONTRAST PM CDT procedure are in the results section. CT HEAD WO CONTRAST STAT 01/31/2019 6:00 Results for this PM CDT procedure are in the results section. BLOOD CULTURE, AEROBIC & Routine 01/31/2019 5:18 Results for this ANAEROBIC PM CDT procedure are in the results section. LIPASE LEVEL STAT 01/31/2019 5:17 Results for this PM CDT procedure are in the results section. ESTIMATED GFR STAT 01/31/2019 5:17 Results for this PM CDT procedure are in the results section. TROPONIN Routine 01/31/2019 5:17 Results for this PM CDT procedure are in the results section. COMPREHENSIVE METABOLIC STAT 01/31/2019 5:17 Results for this PANEL PM CDT procedure are in the results section. BLOOD CULTURE, AEROBIC & Routine 01/31/2019 5:17 Results for this ANAEROBIC PM CDT procedure are in the results section. B NATRIURETIC PEPTIDE STAT 01/31/2019 5:00 Results for this PM CDT procedure are in the results section. URINALYSIS SCREEN AND STAT 01/31/2019 5:00 Results for this MICROSCOPY, WITH REFLEX TO PM CDT procedure are in CULTURE the results section. PARTIAL THROMBOPLASTIN TIME STAT 01/31/2019 5:00 Results for this (PTT) PM CDT procedure are in the results section. PROTHROMBIN TIME WITH INR STAT 01/31/2019 5:00 Results for this PM CDT procedure are in the results section. HC COMPLETE BLD COUNT STAT 01/31/2019 5:00 Results for this W/AUTO DIFF PM CDT procedure are in the results section. URINE CULTURE STAT 01/31/2019 5:00 Results for this PM CDT procedure are in the results section. CT CHEST WO CONTRAST Routine 01/23/2019 1:01 Bilateral lung Results for this PM CDT cancer (HCC) procedure are in SOB (shortness of the results breath) section. NM LUNG QUANTITATIVE Routine 01/23/2019 12:03 Bilateral lung Results for this DIFFERENTIAL FUNCTION PM CDT cancer (HCC) procedure are in VENTILATION / PERFUSION SOB (shortness of the results breath) section. SPIROMETRY PRE AND POST Routine 01/23/2019 10:16 Bilateral lung Results for this WITH BRONCHILATOR, AM CDT cancer (HCC) procedure are in DIFFUSION, LUNG VOLUMES SOB (shortness of the results breath) section. CT CHEST WO CONTRAST Routine 01/02/2019 12:41 Bilateral lung Results for this ABDOMEN WO CONTRAST PELVIS PM CDT cancer (HCC) procedure are in WO CONTRAST the results section. ESTIMATED GFR Routine 01/02/2019 12:37 Results for this PM CDT procedure are in the results section. BILIRUBIN DIRECT Routine 01/02/2019 12:37 Results for this PM CDT procedure are in the results section. COMPREHENSIVE METABOLIC Routine 01/02/2019 12:37 Bilateral lung Results for this PANEL PM CDT cancer (HCC) procedure are in the results section. HC COMPLETE BLD COUNT Routine 01/02/2019 12:37 Bilateral lung Results for this W/AUTO DIFF PM CDT cancer (HCC) procedure are in the results section. MAGNESIUM LEVEL Routine 01/02/2019 12:37 Bilateral lung Results for this PM CDT cancer (HCC) procedure are in the results section. MANUAL DIFFERENTIAL Routine 12/15/2018 5:08 Results for this AM CDT procedure are in the results section. ESTIMATED GFR Routine 12/15/2018 5:08 Results for this AM CDT procedure are in the results section. BASIC METABOLIC PANEL Routine 12/15/2018 5:08 Results for this AM CDT procedure are in the results section. CBC WITH PLATELET AND Routine 12/15/2018 5:08 Results for this DIFFERENTIAL AM CDT procedure are in the results section. HEPATIC FUNCTION PANEL Routine 12/15/2018 5:08 Results for this AM CDT procedure are in the results section. MANUAL DIFFERENTIAL Routine 12/14/2018 4:00 Results for this AM CDT procedure are in the results section. ESTIMATED GFR Routine 12/14/2018 4:00 Results for this AM CDT procedure are in the results section. HEPATIC FUNCTION PANEL Routine 12/14/2018 4:00 Results for this AM CDT procedure are in the results section. PHOSPHORUS LEVEL Routine 12/14/2018 4:00 Results for this AM CDT procedure are in the results section. MAGNESIUM LEVEL Routine 12/14/2018 4:00 Results for this AM CDT procedure are in the results section. CBC WITH PLATELET AND Routine 12/14/2018 4:00 Results for this DIFFERENTIAL AM CDT procedure are in the results section. BASIC METABOLIC PANEL Routine 12/14/2018 4:00 Results for this AM CDT procedure are in the results section. MANUAL DIFFERENTIAL Routine 12/13/2018 5:27 Results for this AM CDT procedure are in the results section. ESTIMATED GFR Routine 12/13/2018 5:27 Results for this AM CDT procedure are in the results section. PHOSPHORUS LEVEL Routine 12/13/2018 5:27 Results for this AM CDT procedure are in the results section. MAGNESIUM LEVEL Routine 12/13/2018 5:27 Results for this AM CDT procedure are in the results section. CBC WITH PLATELET AND Routine 12/13/2018 5:27 Results for this DIFFERENTIAL AM CDT procedure are in the results section. BASIC METABOLIC PANEL Routine 12/13/2018 5:27 Results for this AM CDT procedure are in the results section. SURGICAL PATHOLOGY REQUEST Routine 12/12/2018 3:46 Results for this PM CDT procedure are in the results section. MANUAL DIFFERENTIAL Routine 12/12/2018 5:30 Results for this AM CDT procedure are in the results section. ESTIMATED GFR Routine 12/12/2018 5:30 Results for this AM CDT procedure are in the results section. PHOSPHORUS LEVEL Routine 12/12/2018 5:30 Results for this AM CDT procedure are in the results section. MAGNESIUM LEVEL Routine 12/12/2018 5:30 Results for this AM CDT procedure are in the results section. CBC WITH PLATELET AND Routine 12/12/2018 5:30 Results for this DIFFERENTIAL AM CDT procedure are in the results section. BASIC METABOLIC PANEL Routine 12/12/2018 5:30 Results for this AM CDT procedure are in the results section. ECG 12-LEAD Routine 12/11/2018 5:10 Results for this PM CDT procedure are in the results section. ECHOCARDIOGRAM 2D COMPLETE Routine 12/11/2018 12:08 Results for this W MMODE SPECTRAL COLOR PM CDT procedure are in DOPPLER ([id number]) the results section. VANCOMYCIN LEVEL, RANDOM Routine 12/11/2018 10:42 Results for this AM CDT procedure are in the results section. PREPARE RBC Routine 12/11/2018 5:30 Results for this AM CDT procedure are in the results section. MANUAL DIFFERENTIAL Routine 12/11/2018 5:30 Results for this AM CDT procedure are in the results section. CBC WITH PLATELET AND Routine 12/11/2018 5:30 Results for this DIFFERENTIAL AM CDT procedure are in the results section. ESTIMATED GFR Routine 12/11/2018 5:30 Results for this AM CDT procedure are in the results section. TYPE AND SCREEN Routine 12/11/2018 5:30 Results for this AM CDT procedure are in the results section. TB T-SPOT Routine 12/11/2018 5:30 Results for this AM CDT procedure are in the results section. PHOSPHORUS LEVEL Routine 12/11/2018 5:30 Results for this AM CDT procedure are in the results section. MAGNESIUM LEVEL Routine 12/11/2018 5:30 Results for this AM CDT procedure are in the results section. BASIC METABOLIC PANEL Routine 12/11/2018 5:30 Results for this AM CDT procedure are in the results section. VANCOMYCIN LEVEL, TROUGH Timed 12/10/2018 2:50 Results for this PM CDT procedure are in the results section. HC COMPLETE BLD COUNT Routine 12/10/2018 6:00 Results for this W/AUTO DIFF AM CDT procedure are in the results section. MISCELLANEOUS REFERRAL TEST Routine 12/10/2018 6:00 Results for this AM CDT procedure are in the results section. ESTIMATED GFR Routine 12/10/2018 4:00 Results for this AM CDT procedure are in the results section. VANCOMYCIN LEVEL, RANDOM Routine 12/10/2018 4:00 Results for this AM CDT procedure are in the results section. PHOSPHORUS LEVEL Routine 12/10/2018 4:00 Results for this AM CDT procedure are in the results section. MAGNESIUM LEVEL Routine 12/10/2018 4:00 Results for this AM CDT procedure are in the results section. BASIC METABOLIC PANEL Routine 12/10/2018 4:00 Results for this AM CDT procedure are in the results section. HC COMPLETE BLD COUNT Routine 12/09/2018 4:58 Results for this W/AUTO DIFF AM CDT procedure are in the results section. ESTIMATED GFR Routine 12/09/2018 4:58 Results for this AM CDT procedure are in the results section. PHOSPHORUS LEVEL Routine 12/09/2018 4:58 Results for this AM CDT procedure are in the results section. MAGNESIUM LEVEL Routine 12/09/2018 4:58 Results for this AM CDT procedure are in the results section. BASIC METABOLIC PANEL Routine 12/09/2018 4:58 Results for this AM CDT procedure are in the results section. PARVOVIRUS, QUANTITATIVE Routine 12/08/2018 7:10 Results for this PCR PM CDT procedure are in the results section. CYTOMEGALOVIRUS BY PCR Routine 12/08/2018 7:10 Results for this PM CDT procedure are in the results section. HISTOPLASMA ANTIGEN, URINE Routine 12/08/2018 7:10 Results for this PM CDT procedure are in the results section. CRYPTOCOCCAL ANTIGEN SCREEN Routine 12/08/2018 7:10 Results for this PM CDT procedure are in the results section. SURGICAL PATHOLOGY REQUEST Routine 12/08/2018 4:09 Results for this PM CDT procedure are in the results section. BONE MARROW TRAY Routine 12/08/2018 3:03 Results for this PM CDT procedure are in the results section. MISCELLANEOUS REFERRAL TEST Routine 12/08/2018 3:03 Results for this PM CDT procedure are in the results section. FLOW CYTOMETRY EVALUATION Routine 12/08/2018 3:03 Results for this PM CDT procedure are in the results section. CYTOMEGALOVIRUS BY PCR Routine 12/08/2018 12:52 Results for this PM CDT procedure are in the results section. HERPES SIMPLEX VIRUS BY PCR Routine 12/08/2018 12:52 Results for this PM CDT procedure are in the results section. VARICELLA ZOSTER BY PCR Routine 12/08/2018 12:52 Results for this PM CDT procedure are in the results section. BAL T4T8 Routine 12/08/2018 12:51 Results for this PM CDT procedure are in the results section. BAL CELL COUNT AND Routine 12/08/2018 12:51 Results for this DIFFERENTIAL PM CDT procedure are in the results section. GRAM STAIN Routine 12/08/2018 12:51 Results for this PM CDT procedure are in the results section. RESPIRATORY CULTURE Routine 12/08/2018 12:51 Results for this PM CDT procedure are in the results section. GRAM STAIN Routine 12/08/2018 12:51 Results for this PM CDT procedure are in the results section. RESPIRATORY CULTURE Routine 12/08/2018 12:51 Results for this PM CDT procedure are in the results section. AFB STAIN Routine 12/08/2018 12:51 Results for this PM CDT procedure are in the results section. FUNGUS SMEAR Routine 12/08/2018 12:51 Results for this PM CDT procedure are in the results section. FUNGUS SMEAR Routine 12/08/2018 12:51 Results for this PM CDT procedure are in the results section. AFB STAIN Routine 12/08/2018 12:51 Results for this PM CDT procedure are in the results section. AFB CULTURE Routine 12/08/2018 12:51 Results for this PM CDT procedure are in the results section. FUNGUS CULTURE Routine 12/08/2018 12:51 Results for this PM CDT procedure are in the results section. NOCARDIA CULTURE Routine 12/08/2018 12:51 Results for this PM CDT procedure are in the results section. LEGIONELLA CULTURE Routine 12/08/2018 12:51 Results for this PM CDT procedure are in the results section. RESPIRATORY PATHOGEN PANEL Routine 12/08/2018 12:51 Results for this PM CDT procedure are in the results section. NOCARDIA CULTURE Routine 12/08/2018 12:51 Results for this PM CDT procedure are in the results section. FUNGUS CULTURE Routine 12/08/2018 12:51 Results for this PM CDT procedure are in the results section. AFB CULTURE Routine 12/08/2018 12:51 Results for this PM CDT procedure are in the results section. CYTOLOGY Routine 12/08/2018 12:42 Results for this (NON-GYNECOLOGICAL) REQUEST PM CDT procedure are in the results section. BRONCHOSCOPY 12/08/2018 11:50 AM CDT RESPIRATORY PATHOGEN PANEL Routine 12/08/2018 11:40 Results for this AM CDT procedure are in the results section. ESTIMATED GFR Routine 12/08/2018 5:00 Results for this AM CDT procedure are in the results section. KAPPA LAMBDA FREE LIGHT Routine 12/08/2018 5:00 Results for this CHAIN WITH RATIO AM CDT procedure are in the results section. FIBRINOGEN Routine 12/08/2018 5:00 Results for this AM CDT procedure are in the results section. HIV AG/AB COMBINATION Routine 12/08/2018 5:00 Results for this AM CDT procedure are in the results section. HEPATITIS ACUTE PANEL Routine 12/08/2018 5:00 Results for this AM CDT procedure are in the results section. RETICULOCYTE COUNT Routine 12/08/2018 5:00 Results for this AM CDT procedure are in the results section. LDH Routine 12/08/2018 5:00 Results for this AM CDT procedure are in the results section. URIC ACID LEVEL Routine 12/08/2018 5:00 Results for this AM CDT procedure are in the results section. HEPATIC FUNCTION PANEL Routine 12/08/2018 5:00 Results for this AM CDT procedure are in the results section. PHOSPHORUS LEVEL Routine 12/08/2018 5:00 Results for this AM CDT procedure are in the results section. MAGNESIUM LEVEL Routine 12/08/2018 5:00 Results for this AM CDT procedure are in the results section. BASIC METABOLIC PANEL Routine 12/08/2018 5:00 Results for this AM CDT procedure are in the results section. HC COMPLETE BLD COUNT Routine 12/08/2018 5:00 Results for this W/AUTO DIFF AM CDT procedure are in the results section. STREPTOCOCCUS PNEUMONIAE Routine 12/07/2018 5:50 Results for this URINARY ANTIGEN PM CDT procedure are in the results section. KAPPA LAMBDA FREE LIGHT Routine 12/07/2018 5:00 Results for this CHAIN WITH RATIO PM CDT procedure are in the results section. ASPERGILLUS AB BY CF, SERUM Routine 12/07/2018 4:05 Results for this PM CDT procedure are in the results section. SMEAR REVIEW Routine 12/07/2018 5:15 Results for this AM CDT procedure are in the results section. PERIPHERAL SMEAR Routine 12/07/2018 5:15 Results for this AM CDT procedure are in the results section. RETICULOCYTE COUNT Routine 12/07/2018 5:15 Results for this AM CDT procedure are in the results section. HC COMPLETE BLD COUNT Routine 12/07/2018 5:15 Results for this W/AUTO DIFF AM CDT procedure are in the results section. TOTAL IRON BINDING CAPACITY Routine 12/07/2018 4:00 Results for this AM CDT procedure are in the results section. FERRITIN LEVEL Routine 12/07/2018 4:00 Results for this AM CDT procedure are in the results section. ESTIMATED GFR Routine 12/07/2018 4:00 Results for this AM CDT procedure are in the results section. HAPTOGLOBIN Routine 12/07/2018 4:00 Results for this AM CDT procedure are in the results section. LDH Routine 12/07/2018 4:00 Results for this AM CDT procedure are in the results section. URIC ACID LEVEL Routine 12/07/2018 4:00 Results for this AM CDT procedure are in the results section. HEPATIC FUNCTION PANEL Routine 12/07/2018 4:00 Results for this AM CDT procedure are in the results section. PHOSPHORUS LEVEL Routine 12/07/2018 4:00 Results for this AM CDT procedure are in the results section. MAGNESIUM LEVEL Routine 12/07/2018 4:00 Results for this AM CDT procedure are in the results section. BASIC METABOLIC PANEL Routine 12/07/2018 4:00 Results for this AM CDT procedure are in the results section. BLOOD CULTURE, AEROBIC & Routine 12/06/2018 9:15 Results for this ANAEROBIC PM CDT procedure are in the results section. BLOOD CULTURE, AEROBIC & Routine 12/06/2018 9:05 Results for this ANAEROBIC PM CDT procedure are in the results section. URINE CULTURE Routine 12/06/2018 6:20 Results for this PM CDT procedure are in the results section. URINALYSIS SCREEN AND Routine 12/06/2018 6:00 Results for this MICROSCOPY, WITH REFLEX TO PM CDT procedure are in CULTURE the results section. SODIUM LEVEL, URINE, RANDOM Routine 12/06/2018 6:00 Results for this PM CDT procedure are in the results section. CREATININE LEVEL, URINE, Routine 12/06/2018 6:00 Results for this RANDOM PM CDT procedure are in the results section. SERUM ELECTROPHORESIS Routine 12/06/2018 5:00 Results for this PM CDT procedure are in the results section. CT CHEST WO CONTRAST Routine 12/06/2018 1:56 Results for this ABDOMEN WO CONTRAST PELVIS PM CDT procedure are in WO CONTRAST the results section. ELUTION Routine 12/06/2018 4:30 Results for this AM CDT procedure are in the results section. POSITIVE LINDA REFLEX Routine 12/06/2018 4:30 Results for this AM CDT procedure are in the results section. SMEAR REVIEW Routine 12/06/2018 4:30 Results for this AM CDT procedure are in the results section. RETICULOCYTE COUNT Routine 12/06/2018 4:30 Results for this AM CDT procedure are in the results section. FOLATE LEVEL Routine 12/06/2018 4:30 Results for this AM CDT procedure are in the results section. ESTIMATED GFR Routine 12/06/2018 4:30 Results for this AM CDT procedure are in the results section. DIRECT LIAT' (LINDA) Routine 12/06/2018 4:30 Results for this AM CDT procedure are in the results section. ERYTHROPOIETIN Routine 12/06/2018 4:30 Results for this AM CDT procedure are in the results section. VITAMIN B12 LEVEL Routine 12/06/2018 4:30 Results for this AM CDT procedure are in the results section. LDH Routine 12/06/2018 4:30 Results for this AM CDT procedure are in the results section. URIC ACID LEVEL Routine 12/06/2018 4:30 Results for this AM CDT procedure are in the results section. HEPATIC FUNCTION PANEL Routine 12/06/2018 4:30 Results for this AM CDT procedure are in the results section. PHOSPHORUS LEVEL Routine 12/06/2018 4:30 Results for this AM CDT procedure are in the results section. MAGNESIUM LEVEL Routine 12/06/2018 4:30 Results for this AM CDT procedure are in the results section. BASIC METABOLIC PANEL Routine 12/06/2018 4:30 Results for this AM CDT procedure are in the results section. HC COMPLETE BLD COUNT Routine 12/06/2018 4:30 Results for this W/AUTO DIFF AM CDT procedure are in the results section. PROTHROMBIN TIME WITH INR Routine 12/06/2018 4:30 Results for this AM CDT procedure are in the results section. PARTIAL THROMBOPLASTIN TIME Routine 12/06/2018 4:30 Results for this (PTT) AM CDT procedure are in the results section. XR CHEST 1 VW PORTABLE Routine 12/05/2018 9:46 Results for this PM CDT procedure are in the results section. D-DIMER Routine 12/05/2018 12:18 Results for this PM CDT procedure are in the results section. PROTHROMBIN TIME WITH INR Routine 12/05/2018 12:18 Bilateral lung Results for this PM CDT cancer (HCC) procedure are in the results section. PREPARE RBC Routine 12/05/2018 11:20 Results for this AM CDT procedure are in the results section. TYPE AND SCREEN Routine 12/05/2018 11:20 Bilateral lung Results for this AM CDT cancer (HCC) procedure are in the results section. URIC ACID LEVEL Routine 12/05/2018 11:04 Results for this AM CDT procedure are in the results section. LDH Routine 12/05/2018 11:04 Results for this AM CDT procedure are in the results section. PHOSPHORUS LEVEL Routine 12/05/2018 11:04 Results for this AM CDT procedure are in the results section. MAGNESIUM LEVEL Routine 12/05/2018 11:04 Results for this AM CDT procedure are in the results section. MANUAL DIFFERENTIAL Routine 12/05/2018 11:04 Results for this AM CDT procedure are in the results section. ESTIMATED GFR Routine 12/05/2018 11:04 Results for this AM CDT procedure are in the results section. COMPREHENSIVE METABOLIC Routine 12/05/2018 11:04 Bilateral lung Results for this PANEL AM CDT cancer (HCC) procedure are in the results section. CBC WITH PLATELET AND Routine 12/05/2018 11:04 Bilateral lung Results for this DIFFERENTIAL AM CDT cancer (HCC) procedure are in the results section. XR CHEST EXTERNAL STUDY Routine 11/30/2018 10:52 Results for this AM CDT procedure are in the results section. US ABDOMINAL EXTERNAL STUDY Routine 11/29/2018 1:06 Results for this PM CDT procedure are in the results section. MRI SPINE EXTERNAL STUDY Routine 11/29/2018 1:00 Results for this PM CDT procedure are in the results section. CT CHEST EXTERNAL STUDY Routine 11/29/2018 12:05 Results for this PM CDT procedure are in the results section. US VASCULAR EXTERNAL STUDY Routine 11/27/2018 8:25 Results for this AM CDT procedure are in the results section. NM EXTERNAL STUDY Routine 11/27/2018 5:42 Results for this AM CDT procedure are in the results section. XR CHEST EXTERNAL STUDY Routine 11/26/2018 7:07 Results for this PM CDT procedure are in the results section. CT CHEST WO CONTRAST Routine 11/07/2018 11:41 Bilateral lung Results for this AM [employer] cancer (HCC) procedure are in the results section. TRANSFUSE RED BLOOD CELLS Routine 11/06/2018 3:44 Bilateral lung PM [employer] cancer (HCC) PREPARE RBC Routine 11/06/2018 10:40 Bilateral lung Results for this AM [employer] cancer (HCC) procedure are in the results section. TYPE AND SCREEN Routine 11/06/2018 10:40 Bilateral lung Results for this AM [employer] cancer (HCC) procedure are in the results section. MANUAL DIFFERENTIAL STAT 11/06/2018 10:17 Results for this AM [employer] procedure are in the results section. ESTIMATED GFR STAT 11/06/2018 10:17 Results for this AM [employer] procedure are in the results section. MAGNESIUM LEVEL STAT 11/06/2018 10:17 Bilateral lung Results for this AM [employer] cancer (HCC) procedure are in the results section. COMPREHENSIVE METABOLIC STAT 11/06/2018 10:17 Bilateral lung Results for this PANEL AM [employer] cancer (HCC) procedure are in the results section. CBC WITH PLATELET AND STAT 11/06/2018 10:17 Bilateral lung Results for this DIFFERENTIAL AM [employer] cancer (HCC) procedure are in the results section. LDH STAT 10/16/2018 1:05 Results for this PM [employer] procedure are in the results section. ESTIMATED GFR STAT 10/16/2018 1:05 Results for this PM [employer] procedure are in the results section. CREATININE LEVEL STAT 10/16/2018 1:05 Results for this PM [employer] procedure are in the results section. THYROID STIMULATING HORMONE STAT 10/16/2018 1:05 Results for this PM [employer] procedure are in the results section. ESTIMATED GFR STAT 10/16/2018 10:30 Results for this AM [employer] procedure are in the results section. MAGNESIUM LEVEL STAT 10/16/2018 10:30 Bilateral lung Results for this AM [employer] cancer (HCC) procedure are in the results section. COMPREHENSIVE METABOLIC STAT 10/16/2018 10:30 Bilateral lung Results for this PANEL AM [employer] cancer (HCC) procedure are in the results section. HC COMPLETE BLD COUNT STAT 10/16/2018 10:30 Bilateral lung Results for this W/AUTO DIFF AM [employer] cancer (HCC) procedure are in the results section. MRI BRAIN W WO CONTRAST Routine 10/12/2018 2:33 Bilateral lung Results for this PM [employer] cancer (HCC) procedure are in the results section. ESTIMATED GFR STAT 10/11/2018 10:20 Results for this AM [employer] procedure are in the results section. MAGNESIUM LEVEL STAT 10/11/2018 10:20 Bilateral lung Results for this AM [employer] cancer (HCC) procedure are in the results section. COMPREHENSIVE METABOLIC STAT 10/11/2018 10:20 Bilateral lung Results for this PANEL AM [employer] cancer (HCC) procedure are in the results section. HC COMPLETE BLD COUNT STAT 10/11/2018 10:20 Bilateral lung Results for this W/AUTO DIFF AM [employer] cancer (HCC) procedure are in the results section. MANUAL DIFFERENTIAL STAT 10/02/2018 11:47 Results for this AM [employer] procedure are in the results section. ESTIMATED GFR STAT 10/02/2018 11:47 Results for this AM [employer] procedure are in the results section. MAGNESIUM LEVEL STAT 10/02/2018 11:47 Bilateral lung Results for this AM [employer] cancer (HCC) procedure are in the results section. COMPREHENSIVE METABOLIC STAT 10/02/2018 11:47 Bilateral lung Results for this PANEL AM [employer] cancer (HCC) procedure are in the results section. CBC WITH PLATELET AND STAT 10/02/2018 11:47 Bilateral lung Results for this DIFFERENTIAL AM [employer] cancer (HCC) procedure are in the results section. PET CT SKULL BASE TO MID Routine 09/29/2018 11:04 Coronary artery Results for this THIGH AM [employer] disease involving procedure are in [place] coronary the results artery of [place] section. heart without angina pectoris Arthritis Bilateral lung cancer (HCC) POC GLUCOSE Routine 09/29/2018 9:54 Results for this AM [employer] procedure are in the results section. TRANSFUSE RED BLOOD CELLS Routine 09/27/2018 6:22 Bilateral lung PM [employer] cancer (HCC) TRANSFUSE RED BLOOD CELLS Routine 09/27/2018 4:47 Bilateral lung PM [employer] cancer (HCC) MANUAL DIFFERENTIAL STAT 09/27/2018 10:30 Results for this AM [employer] procedure are in the results section. CBC WITH PLATELET AND STAT 09/27/2018 10:30 Bilateral lung Results for this DIFFERENTIAL AM [employer] cancer (HCC) procedure are in the results section. PREPARE RBC STAT 09/27/2018 10:10 Bilateral lung Results for this AM [employer] cancer (HCC) procedure are in the results section. ANTIBODY SCREEN (GEL) STAT 09/27/2018 10:10 Results for this AM [employer] procedure are in the results section. ANTIBODY IDENTIFICATION STAT 09/27/2018 10:10 Results for this AM [employer] procedure are in the results section. TYPE AND SCREEN STAT 09/27/2018 10:10 Bilateral lung Results for this AM [employer] cancer (HCC) procedure are in the results section. TRANSFUSE RED BLOOD CELLS STAT 09/11/2018 12:33 Bilateral lung PM [employer] cancer (HCC) TRANSFUSE RED BLOOD CELLS STAT 09/11/2018 10:53 Bilateral lung AM [employer] cancer (HCC) SMEAR REVIEW STAT 09/11/2018 7:59 Results for this AM [employer] procedure are in the results section. ESTIMATED GFR STAT 09/11/2018 7:59 Results for this AM [employer] procedure are in the results section. MAGNESIUM LEVEL STAT 09/11/2018 7:59 Bilateral lung Results for this AM [employer] cancer (HCC) procedure are in the results section. COMPREHENSIVE METABOLIC STAT 09/11/2018 7:59 Bilateral lung Results for this PANEL AM [employer] cancer (HCC) procedure are in the results section. HC COMPLETE BLD COUNT STAT 09/11/2018 7:59 Bilateral lung Results for this W/AUTO DIFF AM [employer] cancer (HCC) procedure are in the results section. PREPARE RBC STAT 09/08/2018 1:49 Results for this PM [employer] procedure are in the results section. TYPE AND SCREEN STAT 09/08/2018 1:49 Bilateral lung Results for this PM [employer] cancer (HCC) procedure are in the results section. MANUAL DIFFERENTIAL STAT 09/08/2018 11:45 Results for this AM [employer] procedure are in the results section. ESTIMATED GFR STAT 09/08/2018 11:45 Results for this AM [employer] procedure are in the results section. MAGNESIUM LEVEL STAT 09/08/2018 11:45 Bilateral lung Results for this AM [employer] cancer (HCC) procedure are in the results section. COMPREHENSIVE METABOLIC STAT 09/08/2018 11:45 Bilateral lung Results for this PANEL AM [employer] cancer (HCC) procedure are in the results section. CBC WITH PLATELET AND STAT 09/08/2018 11:45 Bilateral lung Results for this DIFFERENTIAL AM [employer] cancer (HCC) procedure are in the results section. TRANSFUSE RED BLOOD CELLS Routine 08/17/2018 3:14 Bilateral lung PM [employer] cancer (HCC) TRANSFUSE RED BLOOD CELLS Routine 08/17/2018 12:45 Bilateral lung PM [employer] cancer (HCC) PREPARE RBC Routine 08/16/2018 11:27 Results for this AM [employer] procedure are in the results section. TYPE AND SCREEN Routine 08/16/2018 11:27 Bilateral lung Results for this AM [employer] cancer (HCC) procedure are in the results section. MANUAL DIFFERENTIAL STAT 08/16/2018 11:15 Results for this AM [employer] procedure are in the results section. ESTIMATED GFR STAT 08/16/2018 11:15 Results for this AM [employer] procedure are in the results section. MAGNESIUM LEVEL STAT 08/16/2018 11:15 Bilateral lung Results for this AM [employer] cancer (HCC) procedure are in the results section. COMPREHENSIVE METABOLIC STAT 08/16/2018 11:15 Bilateral lung Results for this PANEL AM [employer] cancer (HCC) procedure are in the results section. CBC WITH PLATELET AND STAT 08/16/2018 11:15 Bilateral lung Results for this DIFFERENTIAL AM [employer] cancer (HCC) procedure are in the results section. ESTIMATED GFR STAT 07/26/2018 10:22 Results for this AM [employer] procedure are in the results section. MAGNESIUM LEVEL STAT 07/26/2018 10:22 Bilateral lung Results for this AM [employer] cancer (HCC) procedure are in the results section. COMPREHENSIVE METABOLIC STAT 07/26/2018 10:22 Bilateral lung Results for this PANEL AM [employer] cancer (HCC) procedure are in the results section. HC COMPLETE BLD COUNT STAT 07/26/2018 10:22 Bilateral lung Results for this W/AUTO DIFF AM [employer] cancer (HCC) procedure are in the results section. CT CHEST W CONTRAST ABDOMEN Routine 07/26/2018 10:04 Bilateral lung Results for this W CONTRAST PELVIS W AM [employer] cancer (HCC) procedure are in CONTRAST the results section. POC CREATININE Routine 07/26/2018 9:14 Results for this AM [employer] procedure are in the results section. ESTIMATED GFR Routine 07/26/2018 9:14 Results for this AM [employer] procedure are in the results section. [...] the results section. CT CHEST W CONTRAST ABDOMEN Routine 06/26/2018 11:42 Bilateral lung Results for this W CONTRAST PELVIS W AM CDT cancer (HCC) procedure are in CONTRAST the results section. ESTIMATED GFR STAT [...] CDT procedure are in the results section. 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 Specimen Narrative Performed At PROCEDURE: PET CT SKULL BASE TO MID THIGH RADIANT INDICATION: C34.91 Malignant neoplasm of unspecified part of right bronchus or lung, C34.92 Malignant neoplasm of unspecified part of left bronchus or lung, restaging Restaging PET scan. COMPARISON: PET-CT 09/29/2018 TECHNIQUE: Blood glucose measured at the time of injection was 106 mg/dL. The patient was then intravenously injected with 10 mCi of 18F-FDG. Approximately one hour later, PET images were acquired from the skull base to the mid thighs. Corresponding, low dose, non-contrast CT scanning was performed as part of the attenuation correction process. FINDINGS: Head and neck: There are no suspicious lesions in the imaged head and neck. The left thyroid lobe is absent. Chest: Previously seen left upper lobe pulmonary nodule has resolved. Juxtapleural apicoposterior pulmonary nodule is stable in size and demonstrates no discernible metabolic activity in today's exam. Postoperative changes of right upper lobectomy are stable. No new FDG-avid pulmonary lesions are seen. No suspicious mediastinal or hilar lymphadenopathy is seen. There is no abnormal FDG uptake in the breasts and axillae. Abdomen: Intra-abdominal solid organs are unremarkable. No hypermetabolic retroperitoneal or mesenteric lymphadenopathy is seen. Pelvis: There are no suspicious pelvic masses or lymphadenopathy. Musculoskeletal: No worrisome osseous lesions are identified. Left hip inflammation is noted. IMPRESSION: 1.Interval resolution of previously seen pulmonary nodule in the left upper lobe, compatible with therapy response versus resolution of a nonneoplastic process. 2.Stable left apicoposterior pulmonary nodule with no discernible metabolic activity, favoring a benign etiology. 3.No definitive evidence of FDG-avid lesions elsewhere. [facility]-[id number] Procedure Note Interface, Radiology Results Incoming - 04/12/2019 2:04 PM CDT PROCEDURE: PET CT SKULL BASE TO MID THIGH INDICATION: C34.91 Malignant neoplasm of unspecified part of right bronchus or lung, C34.92 Malignant neoplasm of unspecified part of left bronchus or lung, restaging Restaging PET scan. COMPARISON: PET-CT 09/29/2018 TECHNIQUE: Blood glucose measured at the time of injection was 106 mg/dL. The patient was then intravenously injected with 10 mCi of 18F-FDG. Approximately one hour later, PET images were acquired from the skull base to the mid thighs. Corresponding, low dose, non-contrast CT scanning was performed as part of the attenuation correction process. FINDINGS: Head and neck: There are no suspicious lesions in the imaged head and neck. The left thyroid lobe is absent. Chest: Previously seen left upper lobe pulmonary nodule has resolved. Juxtapleural apicoposterior pulmonary nodule is stable in size and demonstrates no discernible metabolic activity in today's exam. Postoperative changes of right upper lobectomy are stable. No new FDG-avid pulmonary lesions are seen. No suspicious mediastinal or hilar lymphadenopathy is seen. There is no abnormal FDG uptake in the breasts and axillae. Abdomen: Intra-abdominal solid organs are unremarkable. No hypermetabolic retroperitoneal or mesenteric lymphadenopathy is seen. Pelvis: There are no suspicious pelvic masses or lymphadenopathy. Musculoskeletal: No worrisome osseous lesions are identified. Left hip inflammation is noted. IMPRESSION: 1. Interval resolution of previously seen pulmonary nodule in the left upper lobe, compatible with therapy response versus resolution of a nonneoplastic process. 2. Stable left apicoposterior pulmonary nodule with no discernible metabolic activity, favoring a benign etiology. 3. No definitive evidence of FDG-avid lesions elsewhere. [facility]-[id number] Performing Organization Address [facility] Phone Number [facility] [address] [place] [phone] POC glucose (04/12/2019 11:21 AM CDT)Only the most recent of8 resultswithin the time period is included. POC glucose 106 (H) 65 - 99 mg/dL [facility] Comment: HOSPITAL No Action Needed Meter ID: [id number] Landscape Supervisor: García Garrett Specimen Performing Organization Address City/[facility] Phone Number [facility] DEPARTMENT OF PATHOLOGY AND [address] [place] [phone] GENOMIC MEDICINE [address] [address] CBC with platelet and differential (02/21/2019 5:30 AM CDT)Only the most recent of41 resultswithin the time period is included. WBC 5.26 4.50 - 11.00 [facility] k/uL [facility] RBC 3.01 (L) 4.20 - 5.50 [facility] m/uL [facility] HGB 9.4 (L) 12.0 - 16.0 [facility] g/dL [facility] HCT 29.8 (L) 37.0 - 47.0 % [facility] MCV 99.0 82.0 - 100.0 [facility] MCH 31.2 27.0 - 34.0 pg [facility] MCHC 31.5 31.0 - 37.0 [facility] g/dL [facility] RDW - SD 61.1 (H) 37.0 - 55.0 fL [facility] MPV 10.4 8.8 - 13.2 fL [facility] Platelet count 167 150 - 400 k/uL [facility] Nucleated RBC 0.00 /100 WBC [facility] Neutrophils 43.3 39.0 - 69.0 % [facility] Lymphocytes 41.6 25.0 - 45.0 % [facility] Monocytes 10.5 (H) 0.0 - 10.0 % [facility] Eosinophils 3.2 0.0 - 5.0 % [facility] Basophils 0.4 0.0 - 1.0 % [facility] Immature granulocytes 1.0Comment: 0.0 - 1.0 % [facility] "Immature [facility] granulocytes" (promyelocytes , myelocytes, metamyelocytes ) Specimen Blood Performing Organization Address City/State/Zipcode Phone Number [facility] DEPARTMENT OF PATHOLOGY AND [address] [place] [phone] GEN[facility] MEDIC[address] [address] XR Abdomen 1 Vw Portable (02/19/2019 9:12 PM CDT)Only the most recent of2 resultswithin the time period is included. Specimen Narrative Performed At EXAMINATION:XR ABDOMEN 1 VW PORTABLE [facility] CLINICAL HISTORY:Distensionconstipation suspected COMPARISON:02/14/2019 abdominal x-ray IMPRESSION: The bowel gas pattern is nonspecific, nonobstructive. Moderate amount of stool in the ascending colon. [facility]-[id number] Procedure Note Interface, Radiology Results Incoming - 02/20/2019 1:56 AM CDT EXAMINATION: XR ABDOMEN 1 VW PORTABLE CLINICAL HISTORY: Distension constipation suspected COMPARISON: 02/14/2019 abdominal x-ray IMPRESSION: The bowel gas pattern is nonspecific, nonobstructive. Moderate amount of stool in the ascending colon. [facility]-[id number] Performing Organization Address City/[facility]/Zipcode Phone Number [facility] [address] [place] [phone] Prepare RBC, 1 Units (02/19/2019 7:50 PM CDT)Only the most recent of7 resultswithin the time period is included. Pathologist [facility] Product name Red Blood Cells [facility] -1, Leukored [facility] Unit number [id number] [facility] Product code [id number] [facility] Dispense status Transfused [facility] Blood expiration [id number] [facility] Blood type code 5100 [facility] Blood type O POSITIVE [facility] Specimen Blood Performing Organization Address [facility] Phone Number [facility] DEPARTMENT OF PATHOLOGY AND [address] [place] [phone] Type and screen (02/19/2019 7:50 PM CDT)Only the most recent of7 resultswithin the time period is included. Pathologist [facility] ABO grouping O [facility] Rh type POS [facility] Antibody screen (gel) NEG [facility] Specimen Blood Performing Organization Address [facility] Phone Number [facility] DEPARTMENT OF PATHOLOGY AND [address] [place] [phone] [place] [address] Estimated GFR (02/19/2019 5:20 AM CDT)Only the most recent of41 resultswithin the time period is included. Pathologist [facility] Estimated GFR 19 (A) mL/min/1.73 [facility] Comment: HOSPITAL CatergoryUnitsInterpretation G1 >=90 Normal or high G2 60-89Mildly decreased [id number] to moderately decreased [id number] to severely decreased G4 15-29Severely decreased G5 <15Kidney failure The eGFR was calculated using the Chronic Kidney Disease Epidemiology Collaboration (CKD-EPI) equation. Interpretation is based on recommendations of the National Kidney Foundation-Kidney Disease Outcomes Quality Initiative (NKF-KDOQI) published in 2014. Specimen Plasma specimen Performing Organization Address City/[facility]/Zipcode Phone Number [facility] DEPARTMENT OF PATHOLOGY AND [address] [place] [address] [address] Comprehensive metabolic panel (02/19/2019 5:20 AM CDT)Only the most recent of15 resultswithin the time period is included. Sodium 141 135 - 148 [facility] mEq/L [facility] Potassium 4.5 3.5 - 5.0 [facility] mEq/L [facility] Chloride 101 98 - 112 mEq/L [facility] CO2 27 24 - 31 mEq/L [facility] Anion gap 13@ANIO 7 - 15 mEq/L [facility] BUN 49 (H) 6 - 20 mg/dL [facility] Creatinine 2.76 (H) 0.50 - 0.90 [facility] mg/dL HOSPITAL Glucose 95 65 - 99 mg/dL [facility] Calcium 9.4 8.3 - 10.2 [facility] mg/dL HOSPITAL Protein 6.9 6.3 - 8.3 g/dL [facility] Comment: HOSPITAL 4.6-7.0 g/dL 1 week 4.4-7.6 g/dL 7 months-1year5.1-7.3 g/dL 1-2 years5.6-7.5 g/dL >3 years6.0-8.0 g/dL 18-150 6.3-8.3 g/dL Albumin 2.9 (L) 3.5 - 5.0 g/dL [facility] A/G ratio 0.7 0.7 - 3.8 [facility] Alkaline phosphatase 48 35 - 104 U/L [facility] AST 19 10 - 35 U/L [facility] ALT 13 5 - 50 U/L [facility] Total bilirubin <0.2 0.0 - 1.2 [facility] mg/dL HOSPITAL Specimen Plasma specimen Performing Organization Address City/[facility]/Zipcode Phone Number [facility] DEPARTMENT OF PATHOLOGY AND [address] [place] [address] [address] MRI Cervical Spine Wo Contrast (02/17/2019 11:24 AM CDT) Specimen Narrative Performed At EXAMINATION: MRI CERVICAL SPINE WO CONTRAST [facility] CLINICAL HISTORY: ATAXIC GAIT COMPARISON:None TECHNIQUE: Multiplanar multisequence noncontrast enhanced examination was performed of the cervical spine. FINDINGS: There is straightening of the cervical spine, however no subluxation identified.No abnormal marrow edema.Vertebral body heights are preserved. No development canal narrowing. No suspicious osseous lesion. No degenerative marrow changes. The cervicomedullary junction is normal in appearance. No spinal cord signal abnormality. No prevertebral edema or neck mass identified. No cervical lymphadenopathy identified. Major vascular flow voids are present. Axial images through the disc spaces demonstrate the following: C1-C2: No significant spinal canal stenosis. C2-C3: No significant posterior disc disease, spinal canal, subarticular zone, or neural foraminal stenosis. C3-C4: No significant posterior disc disease, spinal canal, subarticular zone, or neural foraminal stenosis. C4-C5: Disc desiccation with minimal circumferential disc bulge which indents the ventral thecal sac and results in moderate to marked left neural frontal stenosis when combined with facet arthrosis, im age 15 of series 5. There is also mild central canal and right neural foraminal narrowing. C5-C6: Disc desiccation with mild circumferential disc bulge which indents the ventral thecal sac and results in moderate bilateral neural foraminal stenosis, image 20 of series 5. Mild to moderate central canal narrowing is also noted. C6-C7: Disc desiccation with minimal circumferential disc bulge which indents the ventral thecal sac and results in mild central canal and bilateral neural foraminal narrowing. C7-T1: No significant posterior disc disease, spinal canal, subarticular zone, or neural foraminal stenosis. IMPRESSION: Multilevel degenerative changes of the cervical spine as detailed above, however no significant spinal canal stenosis or abnormal cord signal identified. [facility]-[id number] Procedure Note Interface, Radiology Results - 02/17/2019 12:33 PM CDT EXAMINATION: MRI CERVICAL SPINE WO CONTRAST CLINICAL HISTORY: ATAXIC GAIT COMPARISON: None TECHNIQUE: Multiplanar multisequence noncontrast enhanced examination was performed of the cervical spine. FINDINGS: There is straightening of the cervical spine, however no subluxation identified.No abnormal marrow edema.Vertebral body heights are preserved. No development canal narrowing. No suspicious osseous lesion. No degenerative marrow changes. The cervicomedullary junction is normal in appearance. No spinal cord signal abnormality. No prevertebral edema or neck mass identified. No cervical lymphadenopathy identified. Major vascular flow voids are present. Axial images through the disc spaces demonstrate the following: C1-C2: No significant spinal canal stenosis. C2-C3: No significant posterior disc disease, spinal canal, subarticular zone, or neural foraminal stenosis. C3-C4: No significant posterior disc disease, spinal canal, subarticular zone, or neural foraminal stenosis. C4-C5: Disc desiccation with minimal circumferential disc bulge which indents the ventral thecal sac and results in moderate to marked left neural frontal stenosis when combined with facet arthrosis, image 17 of series 5. There is also mild central canal and right neural foraminal narrowing. C5-C6: Disc desiccation with mild circumferential disc bulge which indents the ventral thecal sac and results in moderate bilateral neural foraminal stenosis, image 20 of series 5. Mild to moderate central canal narrowing is also noted. C6-C7: Disc desiccation with minimal circumferential disc bulge which indents the ventral thecal sac and results in mild central canal and bilateral neural foraminal narrowing. C7-T1: No significant posterior disc disease, spinal canal, subarticular zone, or neural foraminal stenosis. IMPRESSION: Multilevel degenerative changes of the cervical spine as detailed above, however no significant spinal canal stenosis or abnormal cord signal identified. [facility]-[id number] Performing Organization Address City/State/Zipcode Phone Number [facility] [address] [place] [address] Neuronal cell Abs, serum (02/17/2019 6:40 AM CDT) Neuronal cell Abs See Note [facility] Comment: Anti Neuronal Cell Ab Anti Neuronal Cell Ab 24 [0-54] UNITS Interpretation Within normal limits. Anti Neuronal Cell Ab Method This test was developed and its performance characteristics determined by the [facility] Department of Laboratory Medicine. It has not been cleared or approved by the US Food and Drug Administration. This laboratory is certified under the Clinical Laboratory Improvement Amendments (CLIA) as qualified to perform high complexity clinical laboratory testing. This test is used for clinical purposes. It should not be regarded as investigational or for research. Performed at: [facility] [address] [facility], [address], [place] [address] Specimen Serum Performing Organization Address City/State/Zipcode Phone Number [facility] [address] [place] [address] [facility] [address] [place] [address] ALLEY titer (02/17/2019 6:40 AM CDT) Pathologist [facility] ALLEY titer 1:160 (A) Not-Detected [facility] ALLEY pattern Speckle (A) Not-Detected [facility] Specimen Blood Performing Organization Address City/[facility] Phone Number [facility] DEPARTMENT OF PATHOLOGY AND [address] [place] [address] Sedimentation rate (02/17/2019 6:40 AM CDT) [facility] Sedimentation rate 61 (H) 0 - 20 mm/hr [facility] Specimen Blood Performing Organization Address [facility] Phone Number [facility] DEPARTMENT OF PATHOLOGY AND [address] [place] [address] Rheumatoid factor (02/17/2019 6:40 AM CDT) [facility] Rheumatoid factor 11 0 - 13 IU/mL [facility] Specimen Plasma specimen Performing Organization Address [facility] Phone Number [facility] DEPARTMENT OF PATHOLOGY AND [address] [place] [address] C-reactive protein (02/17/2019 6:40 AM CDT)Only the most recent of2 resultswithin the time period is included. [facility] CRP <0.30 0.00 - 0.50 mg/dL [facility] Specimen Plasma specimen Performing Organization Address [facility]/Zipcode Phone Number [facility] DEPARTMENT OF PATHOLOGY AND [address] [place], [place] [id number] [address] [address] ALLEY (02/17/2019 6:40 AM CDT) [facility] ALLEY screen Positive (A) Negative [facility] Specimen Blood Performing Organization Address City/[facility] Phone Number [facility] DEPARTMENT OF PATHOLOGY AND [address] [address] Phosphorus level (02/15/2019 4:00 AM CDT)Only the most recent of19 resultswithin the time period is included. Phosphorus 3.1 2.4 - 4.5 mg/dL [facility] Specimen Plasma specimen Performing Organization Address [facility] Phone Number [facility] DEPARTMENT OF PATHOLOGY AND [address] [place] [address] Magnesium level (02/15/2019 4:00 AM CDT)Only the most recent of30 resultswithin the time period is included. Magnesium 2.4 1.6 - 2.6 mg/dL [facility] Specimen Plasma specimen Performing Organization Address [facility] Phone Number [facility] DEPARTMENT OF PATHOLOGY AND [address] [place] [address] Basic metabolic panel (02/15/2019 4:00 AM CDT)Only the most recent of24 resultswithin the time period is included. Sodium 143 135 - 148 mEq/L [facility] Potassium 4.4 3.5 - 5.0 mEq/L [facility] Chloride 108 98 - 112 mEq/L [facility] CO2 25 24 - 31 mEq/L [facility] Anion gap 10@ANIO 7 - 15 mEq/L [facility] BUN 38 (H) 6 - 20 mg/dL [facility] Creatinine 2.62 (H) 0.50 - 0.90 mg/dL [facility] Glucose 121 (H) 65 - 99 mg/dL [facility] Calcium 9.4 8.3 - 10.2 mg/dL [facility] Specimen Plasma specimen Performing Organization Address [facility] Phone Number [facility] DEPARTMENT OF PATHOLOGY AND [address] [place] [address] [address] Sinus Wo Contrast (02/13/2019 3:34 PM CDT) Specimen Narrative Performed At EXAMINATION:CT SINUS WO CONTRAST [facility] CLINICAL HISTORY:CT Cisternogram COMPARISON:02/13/2019 TECHNIQUE: CT imaging was performed with iterative reconstruction technique and/or automated exposure control to reduce radiation dose. Images were obtained after intrathecal administration of Omnipaque 300. FINDINGS: No evidence of contrast in the paranasal sinuses. No evidence of osseous dehiscence. Stable mild mucosal inflammatory changes in paranasal sinuses most marked in the maxillary sinuses without air-fluid levels. No fractures. Partial opacification of bilateral mastoid air cells. IMPRESSION: No evidence of CSF leak in the paranasal sinuses. [facility]-[id number] Procedure Note Interface, Radiology Results Incoming - 02/13/2019 3:47 PM CDT EXAMINATION: CT SINUS WO CONTRAST CLINICAL HISTORY: CT Cisternogram COMPARISON: 02/13/2019 TECHNIQUE: CT imaging was performed with iterative reconstruction technique and /or automated exposure control to reduce radiation dose. Images were obtained after intrathecal administration of Omnipaque 300. FINDINGS: No evidence of contrast in the paranasal sinuses. No evidence of osseous dehiscence. Stable mild mucosal inflammatory changes in paranasal sinuses most marked in the maxillary sinuses without air-fluid levels. No fractures. Partial opacification of bilateral mastoid air cells. IMPRESSION: No evidence of CSF leak in the paranasal sinuses. [facility]-[id number] Performing Organization Address City/State/Zipcode Phone Number [facility] [address] [place] [address] IR Lumbar Puncture by Radiology (02/13/2019 2:09 PM CDT)Only the most recent of2 resultswithin the time period is included. Specimen Narrative Performed At EXAMINATION:[facility] CLINICAL HISTORY:CSF leak detection COMPARISON:None. Findings: Informed consent was obtained. Lower back was prepped and draped in usual sterile fashion. 1% lidocaine was used for local anesthesia. A 25-gauge 5 inch needle was advanced into spinal canal at the L4-5 level under intermittent fluoroscopic guidance. 10 cc of Omnipaque 300 were injected into subarachnoid space. Patient was placed in Trendelenburg position. No complications. Total fluoroscopic time was 35 seconds. 5 images were obtained. IMPRESSION: Successful intrathecal administration of Omnipaque [address] sinus cisternogram. [facility]-[id number] Procedure Note Interface, Radiology Results Incoming - 02/13/2019 3:15 PM CDT EXAMINATION: IR LUMBAR PUNCTURE CLINICAL HISTORY: CSF leak detection COMPARISON: None. Findings: Informed consent was obtained. Lower back was prepped and draped in usual sterile fashion. 1% lidocaine was used for local anesthesia. A 25-gauge 5 inch needle was advanced into spinal canal at the L4-5 level under intermittent fluoroscopic guidance. 10 cc of Omnipaque 300 were injected into subarachnoid space. Patient was placed in Trendelenburg position. No complications. Total fluoroscopic time was 35 seconds. 5 images were obtained. IMPRESSION: Successful intrathecal administration of Omnipaque [address] sinus cisternogram. [facility]-[id number] Performing Organization Address [facility] Phone Number [facility] [address] [place] [address] CT Maxillofacial Wo Contrast (02/13/2019 10:46 AM CDT) Specimen Narrative Performed At EXAMINATION:CT [facility]ACIAL WO [facility] COMPARISON:None CLINICAL HISTORY:Facial fx(s) COMMENTS:Axial noncontrast CT scan slices of the maxillofacial bones were obtained. Sagittal and coronal reconstructions were obtained. CT imaging was performed with iterative reconstruction technique and/or automated exposure control to reduce radiation dose. FINDINGS:There are a moderate number of metallic dental restorations. There is mild sinus opacification. No acute fracture of the maxillofacial bones. The orbital floors do not show any significant displacement. IMPRESSION:No acute fracture of the maxillofacial bones. [id number] Procedure Note [facility], Radiology Results Incoming - 02/13/2019 10:55 AM CDT EXAMINATION: CT MAXILLOFACIAL WO CONTRAST COMPARISON: None CLINICAL HISTORY: Facial fx(s) COMMENTS: Axial noncontrast CT scan slices of the maxillofacial bones were obtained. Sagittal and coronal reconstructions were obtained. CT imaging was performed with iterative reconstruction technique and/or automated exposure control to reduce radiation dose. FINDINGS: There are a moderate number of metallic dental restorations. There is mild sinus opacification. No acute fracture of the maxillofacial bones. The orbital floors do not show any significant displacement. IMPRESSION: No acute fracture of the maxillofacial bones. [id number] Performing Organization Address [facility] Phone Number [facility] [address] [place] [address] Cortisol level, random (02/13/2019 9:08 AM CDT)Only the most recent of3 resultswithin the time period is included. Cortisol, random 4 ug/dL [facility] Comment: HOSPITAL Reference Ranges are not established for non-timed Cortisol levels. Reference Range for Timed Cortisol: 6 - 10 AM 6 - 18 ug/dl 4 - 8PM 3 - 11 ug/dl Specimen Plasma specimen Performing Organization Address City/State/Zipcode Phone Number [facility] DEPARTMENT OF PATHOLOGY AND [address] [place] [address] [address] Adrenocorticotropic hormone (02/11/2019 4:34 AM CDT) Adrenocorticotropic hormone 16.8 7.2 - 63.3 [facility] pg/mL HOSPITAL Specimen Blood Performing Organization Address City/[facility]/Zipcode Phone Number [facility] DEPARTMENT OF PATHOLOGY AND [address] [place] [id number] [place] [address] XR Lumbar Spine 2 Or 3 Vw (02/09/2019 8:50 PM CDT) Specimen Narrative Performed At EXAMINATION:XR LUMBAR SPINE 2 OR 3 VW [facility] CLINICAL HISTORY:confirm pain pump catherter location COMPARISON:None. IMPRESSION: Total of 3 views including AP and lateral radiographs of the lumbar spine as well as spot lateral radiograph of the lumbosacral region were obtained. A pain pump catheter is partially visualized along the right flank region and appears to extend to the posterior spine via L3-4 interspinous approach, although its location within the spinal canal cannot be confirmed due to combination of patient body habitus and significant facet arthropathy along mid-inferior lumbar levels. Recommend lumbar spinal CT for further evaluation. Normal lumbar lordosis and alignment. Vertebral body heights are preserved. No evidence of acute fracture, suspicious osteolytic or osteoblastic lesion. Intervertebral disc spaces are most mildly narrowed. [facility]-[id number] Procedure Note Interface, Radiology Results Incoming - 02/10/2019 12:19 AM CDT EXAMINATION: XR LUMBAR SPINE 2 OR 3 VW CLINICAL HISTORY: confirm pain pump catherter location COMPARISON: None. IMPRESSION: Total of 3 views including AP and lateral radiographs of the lumbar spine as well as spot lateral radiograph of the lumbosacral region were obtained. A pain pump catheter is partially visualized along the right flank region and appears to extend to the posterior spine via L3-4 interspinous approach, although its location within the spinal canal cannot be confirmed due to combination of patient body habitus and significant facet arthropathy along mid-inferior lumbar levels. Recommend lumbar spinal CT for further evaluation. Normal lumbar lordosis and alignment. Vertebral body heights are preserved. No evidence of acute fracture, suspicious osteolytic or osteoblastic lesion. Intervertebral disc spaces are most mildly narrowed. [facility]-[id number] Performing Organization Address [facility]/Zipcode Phone Number [facility] [address] [place] [address] Methylmalonic acid, serum (02/09/2019 5:30 PM CDT) Methylmalonic acid 0.40 0.00 - 0.40 [facility] Comment: umol/L INTERPRETIVE INFORMATION: MMA Serum/Plasma, Vitamin B12 Status Test developed and characteristics determined by [facility]. See Compliance Statement B: [employer]/CS Performed by [facility], [address] [place], [place] [id number] [email or web address], Arsenio Santos MD - Lab. Director Specimen Serum Performing Organization Address [facility] Phone Number [facility] [address] [place] [address] [facility] [address] [place] [address] Copper level, serum (02/09/2019 5:30 PM CDT) Copper 131.9 80.0 - 155.0 [facility] Comment: ug/dL INTERPRETIVE INFORMATION: Copper, Serum or Plasma Elevated results may be due to skin or collection-related contamination, including the use of a noncertified metal-free collection/transport tube. If contamination concerns exist due to elevated levels of serum/plasma copper, confirmation with a second specimen collected in a certified metal-free tube is recommended. Serum copper may be elevated with infection, inflammation, stress, and copper supplementation. In females, elevated copper may also be caused by oral contraceptives and (concentrations may be elevated up to 3 times normal during the third trimester). Test developed and characteristics determined by [employer]. See Compliance Statement B: [employer] Performed by [facility], [address] [facility] [place], [place] [id number] [email or web address], Arsenio Santos MD - Lab. Director Specimen Blood Performing Organization Address [facility]/Zipcode Phone Number [facility] [address] [place] [address] [facility] [address] [place] [address] Zinc level, serum (02/09/2019 5:30 PM CDT) Zinc 54.9 (L) 60.0 - 120.0 HM [facility] Comment: ug/dL INTERPRETIVE INFORMATION: Zinc, Serum or Plasma Elevated results may be due to skin or collection-related contamination, including the use of a noncertified metal-free collection/transport tube. If contamination concerns exist due to elevated levels of serum/plasma zinc, confirmation with a second specimen collected in a certified metal-free tube is recommended. Circulating zinc concentrations are dependent on albumin status and are depressed with malnutrition.Zinc may also be lowered with infection, inflammation, stress, oral contraceptives, and .Zinc may be elevated with zinc supplementation or fasting.Elevated zinc concentrations may interfere with copper absorption. Test developed and characteristics determined by [facility]. See Compliance Statement B: [employer] Performed by [facility], [address] [place] [id number] [email or web address], Arsenio Santos MD - Lab. Director Specimen Blood Performing Organization Address City/[facility]/Zipcode Phone Number [facility] [address] [place] [address] [facility] [address] [place] [address] Vitamin C level, plasma (02/09/2019 5:30 PM CDT) Vitamin C, plasma <5 (L) 23 - 114 [facility] Comment: umol/L INTERPRETIVE DATA: Vitamin C (Ascorbic Acid), Plasma Vitamin C concentrations lower than 11 umol/L indicate deficiency. Concentrations between 11 and 23 umol/L are consistent with a moderate risk of deficiency due to inadequate tissue stores. Vitamin C concentration is reported as micromoles per liter (umol/L). To convert concentration to milligrams per deciliter (mg/dL), multiply the result by 0.0176. Test developed and characteristics determined by [facility]. See Compliance Statement B: [employer]/CS Performed by [facility], [address] [place] [id number] [email or web address], Arsenio Santos MD - Lab. Director Specimen Plasma specimen Performing Organization Address City/State/Zipcode Phone Number [facility] [address] [place] [address] [facility] [address] [place] [address] Vitamin D 25 hydroxy level (02/09/2019 5:30 PM CDT) [facility] Vitamin D, 36.0 30.0 - 150.0 [facility] 25-hydroxy Comment: ng/mL HOSPITAL This assay reports the sum of 25-hydroxy vitamin D3 and 25-hydroxy vitamin D2. Reference range: 0-17 years: Deficiency: less than 20ng/mL Optimum level: greater than or equal to 20 ng/mL. 18 years and older: Deficiency: less than 20ng/mL Insufficiency: 20-29 ng/mL Optimum Level: 30-80 ng/mL The assay reportable range is 3.4155.9 ng/mL. Levels higher than 150 ng/mL may be associated with toxicity. If toxicity is clinically suspected and the reported result is >155.9 ng/mL,contact lab for alternative methods to obtain a definitivelevel. If separate quantitation of 25-hydroxy vitamin D3 and 25-hydroxy vitamin D2 is needed, please contact lab for alternative methods. Specimen Blood Performing Organization Address City/[facility]/Zipcode Phone Number [facility] DEPARTMENT OF PATHOLOGY AND [address] [place] [address] Tameka Mejias Virus (EBV) by PCR (02/09/2019 7:29 AM CDT) [facility] Tameka Mejias virus, Not-Detected Not-Detected [facility] PCR copies/mL [facility] Tameka Mejias virus, See link below [facility] PCR for PDF Lab HOSPITAL ReportComment: Specimen Performing Organization Address City/State/Zipcode Phone Number [facility] DEPARTMENT OF PATHOLOGY AND [address] [place] [address] Cytomegalovirus by PCR (02/09/2019 5:00 AM CDT)Only the most recent of3 resultswithin the time period is included. [facility] Cytomegalovirus by PCR Not-Detected Not-Detected [facility] IU/mL [facility] Cytomegalovirus by PCR See link [facility] below for PDF HOSPITAL Lab ReportComment : Specimen Performing Organization Address [facility] Phone Number [facility] DEPARTMENT OF PATHOLOGY AND [address] [place] [address] Antistreptolysin O (02/09/2019 4:00 AM CDT) [facility] Antistreptolysin O 409 (H) 0 - 200 IU/mL [facility] Specimen Blood Performing Organization Address [facility] Phone Number [facility] DEPARTMENT OF PATHOLOGY AND [address] [place] [address] Group A strep, rapid antigen (02/08/2019 4:43 PM CDT) [facility] Group A strep, Negative for Group A Streptococcus antigen. [facility] rapid antigen Comment: HOSPITAL result Specimen Information Specimen Source: Throat Specimen Site: Not otherwise specified Specimen Throat - Not otherwise specified Performing Organization Address [facility] Phone Number [facility] DEPARTMENT OF PATHOLOGY AND [address] [place] [address] Strep screen culture (02/08/2019 4:43 PM CDT) [facility] Strep screen No beta hemolytic Streptococci isolated [facility] culture isolate Comment: HOSPITAL Specimen Information Specimen Source: Throat Specimen Site: Not otherwise specified Specimen Throat - Not otherwise specified Performing Organization Address [facility] Phone Number [facility] DEPARTMENT OF PATHOLOGY AND [address] [place] [address] Reticulocyte count (02/08/2019 6:30 AM CDT)Only the most recent of4 resultswithin the time period is included. [facility] Retic %, auto 1.6 0.5 - 2.1 % [facility] Retic absolute, auto 0.0390 0.0210 - 0.1155 [facility] m/uL HOSPITAL Specimen Blood Performing Organization Address City/[facility] Phone Number [facility] DEPARTMENT OF PATHOLOGY AND [address] [place], [place] [phone] [address] [address] Total iron binding capacity (02/08/2019 4:00 AM CDT)Only the most recent of2 resultswithin the time period is included. Iron level 62 37 - 145 ug/dL [facility] Iron binding capacity 196 (L) 200 - 400 ug/dL [facility] % Saturation 31.6 15.0 - 38.0 % [facility] Specimen Plasma specimen Performing Organization Address City/[facility] Phone Number [facility] DEPARTMENT OF PATHOLOGY AND [address] [place] [phone] Thyroid stimulating hormone (02/08/2019 4:00 AM CDT)Only the most recent of2 resultswithin the time period is included. TSH 2.13 0.27 - 4.20 uIU/mL [facility] Specimen Plasma specimen Performing Organization Address City/[facility] Phone Number [facility] DEPARTMENT OF PATHOLOGY AND [address] [place] [address] T4, free (02/08/2019 4:00 AM CDT) [facility] T4, free 1.0 0.9 - 1.7 ng/dL [facility] Specimen Plasma specimen Performing Organization Address City/[facility] Phone Number [facility] DEPARTMENT OF PATHOLOGY AND [address] [place] [address] LDH (02/08/2019 4:00 AM CDT)Only the most recent of6 resultswithin the time period is included. LDH 165 87 - 225 U/L [facility] Specimen Plasma specimen Performing Organization Address City/[facility] Phone Number [facility] DEPARTMENT OF PATHOLOGY AND [address] [place] [address] Folate level (02/08/2019 4:00 AM CDT)Only the most recent of2 resultswithin the time period is included. Folate 13.2 4.8 - 24.2 ng/mL [facility] Specimen Serum Performing Organization Address City/State/Zipcode Phone Number [facility] DEPARTMENT OF PATHOLOGY AND [address] [place] [phone] [place] [phone] Ferritin level (02/08/2019 4:00 AM CDT)Only the most recent of2 resultswithin the time period is included. [facility] Ferritin level 1,193 (H) 13 - 150 ng/mL [facility] Specimen Plasma specimen Performing Organization Address City/[facility]/Zipcode Phone Number [facility] DEPARTMENT OF PATHOLOGY AND [address] [place] [phone] [place] [address] Vitamin B12 level (02/08/2019 4:00 AM CDT)Only the most recent of2 resultswithin the time period is included. [facility] Vitamin B12 460 211 - 946 [facility] Comment: pg/mL HOSPITAL Significant overlap exists between normal and deficiency states. However, most patients with deficiencies will have Serum B12 <200 pg/mL. Specimen Serum Performing Organization Address City/[facility] Phone Number [facility] DEPARTMENT OF PATHOLOGY AND [address] [place] [address] Hepatic function panel (02/08/2019 4:00 AM CDT)Only the most recent of6 resultswithin the time period is included. [facility] Albumin 3.0 (L) 3.5 - 5.0 g/dL [facility] Total bilirubin <0.2 0.0 - 1.2 [facility] mg/dL [facility] Bilirubin direct <0.2 0.0 - 0.3 [facility] mg/dL [facility] Alkaline phosphatase 65 35 - 104 U/L [facility] Protein 7.4 6.3 - 8.3 g/dL [facility] Comment: HOSPITAL 4.6-7.0 g/dL 1 week 4.4-7.6 g/dL 7 months-1year5.1-7.3 g/dL 1-2 years5.6-7.5 g/dL >3 years6.0-8.0 g/dL 18-150 6.3-8.3 g/dL ALT 14 5 - 50 U/L [facility] AST 22 10 - 35 U/L [facility] Specimen Plasma specimen Performing Organization Address [facility] Phone Number [facility] DEPARTMENT OF PATHOLOGY AND [address] [place] [address] IgG synthesis rate study (02/03/2019 2:00 PM CDT) [facility] IgG albumin ratio, 0.18 0.00 - 0.23 [facility] IgG index, CSF 0.43 0.01 - 0.63 [facility] IgG synthetic rate -0.86 -9.90 - 3.30 [facility] mg/day [facility] Q-albumin ratio, 5.25 2.00 - 7.50 [facility] IgG, CSF 3.08 (H) 1.00 - 3.00 [facility] mg/dL HOSPITAL Albumin, CSF 16.81 10.00 - 30.00 [facility] mg/dL [facility] IgG 1,362 700 - 1,600 [facility] mg/dL [facility] Albumin, S 3,200.0 (L) 3,640.0 - [facility] 5,304.0 mg/dL HOSPITAL Specimen Serum Performing Organization Address City/[facility] Phone Number [facility] DEPARTMENT OF PATHOLOGY AND [address] [place] [address] Miscellaneous referral test (02/03/2019 2:00 PM CDT)Only the most recent of4 resultswithin the time period is included. [facility] Misc test name ?Please send CSF sample [facility] for paraneoplast Misc test result see note [facility] Comment: Paraneoplastic Autoantibody Eval, CSF Interpretation, CSF No informative autoantibodies were detected in the Paraneoplastic Evaluation. However, a negative result does not exclude neurological autoimmunity with or without associated neoplasia. Sensitivity and specificity of antibody testing are enhanced by testing both serum and CSF. Anti-Neuronal Nuclear Ab, Type 1 TEE-1, C:Negative titer Reference: <1:2 Anti-Neuronal Nuclear Ab, Type 2 TEE-2, C: Negative titer Reference:<1:2 Anti-Neuronal Nuclear Ab, Type 3 TEE-3, C: Negative titer Reference:<1:2 Anti-Glial Nuclear Ab, Type 1 AGNA-1, C: Negative titer Reference:<1:2 Purkinje Cell Cytoplasmic Ab Type 1 [employer]ICKM[employer] SUPERVISOR-1, C:Negative titer Reference:<1:2 Purkinje Cell Cytoplasmic Ab Type 2 [employer]ICKM[employer] SUPERVISOR-2, C:Negative titer Reference:<1:2 Purkinje Cell Cytoplasmic Ab Type Tr [employer]ICKM[employer] SUPERVISOR-Tr, C: Negative titer Reference:<1:2 Amphiphysin Ab, C: Negativetiter Reference:<1:2 CRMP-5-IgG, C: Negativetiter -- REFERENCE VALUE -- Negative at <1:2 Test performed by: [facility] [address] [place], [place] Specimen Performing Organization Address City/[facility]code Phone Number [facility] [address] [place] [address] [facility] [address] [place] [address] Flow cytometry evaluation (02/03/2019 2:00 PM CDT)Only the most recent of2 resultswithin the time period is included. [facility] Flow cytometry See link below [facility] evaluation for PDF Lab HOSPITAL Report Specimen Fluid Performing Organization Address City/[facility] Phone Number [facility] DEPARTMENT OF PATHOLOGY AND [address] [place] [address] [facility] AFB culture (02/03/2019 2:00 PM CDT)Only the most recent of3 resultswithin the time period is included. AFB culture No growth after 6 weeks of incubation. [facility] isolate Comment: HOSPITAL Specimen Information Specimen Source: CSF (Spinal Fluid) Specimen Site: CSF (spinal fluid) Specimen Cerebrospinal fluid - CSF (spinal fluid) Performing Organization Address City/[facility]/Zipcode Phone Number [facility] DEPARTMENT OF PATHOLOGY AND [address] [place] [phone] [address] Cryptococcal antigen, screen (02/03/2019 2:00 PM CDT)Only the most recent of2 resultswithin the time period is included. Cryptococcal Ag Negative - No Cryptococcus antigen detected. [facility] Comment: HOSPITAL Specimen Information Specimen Source: CSF (Spinal Fluid) Specimen Site: CSF (spinal fluid) Specimen Cerebrospinal fluid - CSF (spinal fluid) Performing Organization Address City/[facility]/Zipcode Phone Number [facility] DEPARTMENT OF PATHOLOGY AND [address] [place] [phone] [address] Oligoclonal banding, CSF (02/03/2019 2:00 PM CDT) Protein, CSF 30 15 - 45 [place] mg/dL [facility] Prealbumin, CSF 5.5 3.5 - 11.1 % [facility] Albumin, CSF 58.6 40.8 - 66.2 [place] % [facility] Alpha 1, CSF 3.8 2.3 - 6.4 % [facility] Alpha 2, CSF 8.2 6.1 - 12.6 % [facility] Beta, CSF 15.6 11.7 - 24.1 [facility] Gamma, CSF 8.3 5.6 - 12.2 % [facility] CSF extended See [place] interpretation CommentComment: An [facility] normal [facility] CSF protein study. No oligoclonal bands seen. CSF interpretation See [place] CommentComment: [facility] Justin PickeringJORDAN [facility] PhD; Connor Stone, PhD; Wang Santos MD, PhD Specimen Cerebrospinal fluid Performing Organization Address City/[facility] Phone Number [facility] DEPARTMENT OF PATHOLOGY AND [address] [place] [phone] [address] Gram stain (02/03/2019 2:00 PM CDT)Only the most recent of3 resultswithin the time period is included. Gram stain isolate No WBC's or organisms seen. [facility] Comment: [facility] Specimen Information Specimen Source: CSF (Spinal Fluid) Specimen Site: CSF (spinal fluid) Specimen Cerebrospinal fluid - CSF (spinal fluid) Performing Organization Address City/[facility]/Zipcode Phone Number [facility] DEPARTMENT OF PATHOLOGY AND [address] [place] [phone] [address] CSF culture (02/03/2019 2:00 PM CDT) CSF culture growth after 72 hours [facility] isolate Comment: HOSPITAL Specimen Information Specimen Source: CSF (Spinal Fluid) Specimen Site: CSF (spinal fluid) Specimen Cerebrospinal fluid - CSF (spinal fluid) Performing Organization Address City/[facility] Phone Number [facility] DEPARTMENT OF PATHOLOGY AND [address] [place] [phone] [place] [address] Fungus culture (02/03/2019 2:00 PM CDT)Only the most recent of3 resultswithin the time period is included. Fungus culture No growth after 4 weeks of incubation. [facility] isolate Comment: HOSPITAL Specimen Information Specimen Source: CSF (Spinal Fluid) Specimen Site: CSF (spinal fluid) Specimen Cerebrospinal fluid - CSF (spinal fluid) Performing Organization Address City/[facility] Phone Number [facility] DEPARTMENT OF PATHOLOGY AND [address] [place] [address] CSF cell count with differential (02/03/2019 2:00 PM CDT) Color, CSF Colorless [facility] Appearance, CSF Clear [facility] RBC, CSF 0 0 - 1 /CMM [facility] WBC, CSF 0 0 - 5 /CMM [facility] CSF mononuclear cell 0/CMM [facility] Specimen Cerebrospinal fluid Performing Organization Address [facility] Phone Number [facility] DEPARTMENT OF PATHOLOGY AND [address] [place] [address] VDRL, CSF screen (02/03/2019 2:00 PM CDT) VDRL, CSF screen Non-reactive Non-reactive [facility] Specimen Cerebrospinal fluid Performing Organization Address City/[facility]/Zipcode Phone Number [facility] DEPARTMENT OF PATHOLOGY AND [address] [place] [phone] [place] [address] Protein, CSF (02/03/2019 2:00 PM CDT) Protein, CSF 28 15 - 45 mg/dL [facility] Specimen Cerebrospinal fluid Performing Organization Address City/[facility]/Zipcode Phone Number [facility] DEPARTMENT OF PATHOLOGY AND [address] [place] [phone] [address] Myelin basic protein (02/03/2019 2:00 PM CDT) Myelin basic 1.69 0.00 - 5.50 [facility] protein Comment: ng/mL INTERPRETIVE INFORMATION:Myelin Basic Protein Test developed and characteristics determined by [facility]. See Compliance Statement D: [employer]/ Performed by [employer], [address] [place] [address] [email or web address], Arsenio Santos MD - Lab. Director Specimen Cerebrospinal fluid Performing Organization Address [facility] Phone Number [facility] [address] [place] [address] [facility] [address] [place] [address] Glucose level, CSF (02/03/2019 2:00 PM CDT) Glucose, CSF 56 40 - 70 mg/dL [facility] Specimen Cerebrospinal fluid Performing Organization Address [facility] Hospitalcomt Phone Number [facility] DEPARTMENT OF PATHOLOGY AND [address] [place], [place] [phone] [address] [address] Angiotensin converting enzyme, CSF (02/03/2019 2:00 PM CDT) Angiotensin 1.7 0.0 - 2.5 [facility] converting enzyme, Comment: U/L CSF This test was developed and its performance characteristics determined by [employer]. The U.S. Food and Drug Administration has not approved or cleared this test; however, FDA clearance or approval is not currently required for clinical use. The results are not intended to be used as the sole means for clinical diagnosis or patient management decisions. Performed by [facility], [address] [place] [phone] [email or web address], Arsenio Santos MD - Lab. Director Specimen Cerebrospinal fluid Performing Organization Address [facility] Hospitalcomt Phone Number [facility] [address] [place] [address] [facility] [address] [place] [address] Cervical Spine Wo Contrast (02/02/2019 3:33 PM CDT) Specimen Narrative Performed At EXAMINATION:CT CERVICAL SPINE WO CONTRAST [facility] CLINICAL HISTORY:Radiculopathy COMPARISON:None. TECHNIQUE: Axial helical CT images throughout the cervical spine were performed without IV contrast. Sagittal and coronal reformatted images were generated. All CT images were acquired using low-dose technique with automated exposure control. FINDINGS: There is no evidence of acute fracture, traumatic subluxation, or dislocation. There is normal cervical lordosis and alignment. Vertebral bodies are preserved. There is no evidence of paraspinal hematoma. No significant cervical spondylosis is appreciated. IMPRESSION: No acute cervical spine bony abnormality. If clinically warranted for the evaluation of cervical radiculopathy, MRI or myelogram of the cervical spine are recommended. [id number] Procedure Note Interface, Radiology Results 02/02/2019 4:07 PM CDT EXAMINATION: CT CERVICAL SPINE WO CONTRAST CLINICAL HISTORY: Radiculopathy COMPARISON: None. TECHNIQUE: Axial helical CT images throughout the cervical spine were performed without IV contrast. Sagittal and coronal reformatted images were generated. All CT images were acquired using low-dose technique with automated exposure control. FINDINGS: There is no evidence of acute fracture, traumatic subluxation, or dislocation. There is normal cervical lordosis and alignment. Vertebral bodies are preserved. There is no evidence of paraspinal hematoma. No significant cervical spondylosis is appreciated. IMPRESSION: No acute cervical spine bony abnormality. If clinically warranted for the evaluation of cervical radiculopathy, MRI or myelogram of the cervical spine are recommended. [id number] Performing Organization Address City/State/Zipcode Phone Number [facility] [address] [place] [address] MRI Brain Wo Contrast (02/01/2019 2:48 PM CDT) Specimen Narrative Performed At EXAMINATION:MRI BRAIN WO CONTRAST [facility] CLINICAL HISTORY:worsening chronic headachedizzinessataxia COMPARISON:January 31, 2019 Findings: No intracranial hemorrhage, acute ischemia, extra-axial fluid collections or parenchymal mass lesions. No hydrocephalus. No suspicious focal bone marrow lesions. Nonspecific partial opacification of bilateral mastoid air cells. Major flow voids are maintained. Mild mucosal inflammatory changes in paranasal sinuses. IMPRESSION: No acute intracranial abnormalities or mass lesions. [id number] Procedure Note Interface, Radiology Results 02/01/2019 3:16 PM CDT EXAMINATION: MRI BRAIN WO CONTRAST CLINICAL HISTORY: worsening chronic headache dizziness ataxia COMPARISON: January 31, 2019 Findings: No intracranial hemorrhage, acute ischemia, extra-axial fluid collections or parenchymal mass lesions. No hydrocephalus. No suspicious focal bone marrow lesions. Nonspecific partial opacification of bilateral mastoid air cells. Major flow voids are maintained. Mild mucosal inflammatory changes in paranasal sinuses. IMPRESSION: No acute intracranial abnormalities or mass lesions. [id number] Performing Organization Address City/[facility] Phone Number [facility] [address] [place] [phone] Lactic acid level (02/01/2019 4:55 AM CDT) Lactic acid 0.5 0.5 - 2.2 mmol/L [facility] Specimen Plasma specimen Performing Organization Address [facility] Phone Number [facility] DEPARTMENT OF PATHOLOGY AND [address] [place] [phone] [facility] [address] [address] XR Chest 1 Vw Portable (01/31/2019 7:14 PM CDT)Only the most recent of2 resultswithin the time period is included. Specimen Narrative Performed At EXAMINATION:XR CHEST 1 VW [facility]:fever COMPARISON:12/05/2018 IMPRESSION: No acute consolidation or significant pleural effusion. Mild basilar scarring/atelectasis. Stable blunting of the right costophrenic sulcus is consistent with scarring. No definite pleural effusion. Approximately 1.5 cm ill-defined peripheral groundglass nodule in the left upper lobe is better visualized on prior CT. Recommend CT follow-up. Portacatheter stable. [facility]-[id number] Procedure Note Interface, Radiology Results Incoming - 01/31/2019 7:33 PM CDT EXAMINATION: XR CHEST 1 VW PORTABLE CLINICAL HISTORY: fever COMPARISON: 12/05/2018 IMPRESSION: No acute consolidation or significant pleural effusion. Mild basilar scarring/ atelectasis. Stable blunting of the right costophrenic sulcus is consistent with scarring. No definite pleural effusion. Approximately 1.5 cm ill-defined peripheral groundglass nodule in the left upper lobe is better visualized on prior CT. Recommend CT follow-up. Portacatheter stable. [facility]-[id number] Performing Organization Address City/[facility] Phone Number [address] [address] Respiratory pathogen panel (01/31/2019 6:33 PM CDT)Only the most recent of3 resultswithin the time period is included. [facility] Respiratory Negative for all pathogens tested: [place] pathogen panel Negative for Adenovirus [facility] Negative for Coronavirus HKU1 [facility] Negative for Coronavirus NL63 Negative for Coronavirus [...] Specimen Information Specimen Source: Nares Specimen Site: Not specified Specimen Nares - Not specified Performing Organization Address City/State/Zipcode Phone Number [facility] DEPARTMENT OF PATHOLOGY AND [address] [place] [phone] [place] [phone] Influenza antigen test, reflex negative to RPP (01/31/2019 6:33 PM CDT) [facility] Influenza antigen Negative for Influenza A/B antigen. [facility] Comment: HOSPITAL Specimen Information Specimen Source: Nares Specimen Site: Not specified Specimen Nares - Not specified Performing Organization Address City/State/Zipcode Phone Number [facility] DEPARTMENT OF PATHOLOGY AND [address] [place] [phone] [address] ECG 12 lead (01/31/2019 6:29 PM CDT)Only the most recent of2 resultswithin the time period is included. [facility] Ventricular rate 75 [facility]USE Atrial rate 75 [facility] NV interval 152 [facility] QRSD interval 86 [facility] QT interval 374 [facility] QTC interval 417 [facility] P axis 1 18 [facility] QRS axis 1 43 [facility] MUSE T wave axis 45 [facility] MUSE EKG impression Normal sinus [facility] MUSE rhythm-Normal ECG-In automated comparison with ECG of 11-DEC-2018 17:10,-No significant change was found- Specimen Narrative Performed At Performing Organization Address City/State/Zipcode Phone Number [facility] MUSE [address] [place] [address] CT Abdomen Pelvis Wo Contrast (01/31/2019 6:07 PM CDT) Specimen Narrative Performed At EXAMINATION:CT ABDOMEN PELVIS WO CONTRAST [facility] CLINICAL HISTORY:abdominal pain at implanted pain pump site COMPARISON:CT chest, abdomen, and pelvis without contrast dated 01/02/2019 TECHNIQUE:CT of the abdomen and pelvis without intravenous contrast. Absence of intravenous contrast decreases sensitivity for detection of focal lesions and vascular pathology. CT imaging was performed with iterative reconstruction techniques and/or automated exposure control to reduce radiation dose. FINDINGS: LOWER THORAX:The tip of a central venous catheter terminates near the cavoatrial junction. There is a small, circumferential, simple attenuation pericardial effusion. There is subsegmental atelectasis/scarring in the dependent portions of both lungs. There is subpleural micronodularity in both lower lobes, right greater than left, nonspecific. There is no pleural effusion. HEPATOBILIARY:The liver appears unremarkable. Patient is status post cholecystectomy. There is no biliary ductal dilatation. SPLEEN: There is splenomegaly, measuring approximately 13.5 cm. PANCREAS:There is no solid mass or cystic lesion. There is no pancreatic ductal dilatation. There is no evidence of pancreatitis. ADRENALS:There is no adrenal nodule. KIDNEYS:There is nonspecific bilateral perirenal stranding. There is no nephroureterolithiasis. There is no hydroureter/hydronephrosis. There is no solid mass. PELVIC ORGANS:The bladder is decompressed. Patient is status post hysterectomy. The bilateral adnexal regions appear grossly unremarkable. Multiple calcified pelvic phleboliths are present. GI TRACT:There is no gastrointestinal distention to suggest obstruction. There is increased fecal retention, suggestive of mild constipation. There is no definite pathologic gastrointestinal wall thickening, with note made that the absence of enteral contrast and underdistention limit evaluation. There is no pneumatosis intestinalis/coli.Patient is status post appendectomy. PERITONEUM/RETROPERITONEUM:There is no free intraperitoneal air. There is no free fluid or focal drainable collection. LYMPHATIC: There is no lymphadenopathy. VESSELS: There is mild atherosclerotic calcification of the arterial vasculature. There is no evidence of aortic aneurysm. BONES AND SOFT TISSUES:There is demineralization and degenerative change of the visualized skeleton. There is no acute or suspicious osseous abnormality. There is an implanted pain pump within the subcutaneous soft tissues of the right flank with grossly intact lead that terminates within the spinal canal at the T8-9 level. Patient is status post surgical mesh repair of a ventral abdominal wall hernia without evidence of dehiscence. There is there is no hematoma or drainable fluid collection within the body wall. IMPRESSION: No acute abdominal or pelvic pathology. Specifically, no abnormality associated with the implanted pain pump. [facility]-[id number] Procedure Note [facility], Radiology Results Incoming - 01/31/2019 6:32 PM CDT EXAMINATION: CT ABDOMEN PELVIS WO CONTRAST CLINICAL HISTORY: abdominal pain at implanted pain pump site COMPARISON: CT chest, abdomen, and pelvis without contrast dated 01/02/2019 TECHNIQUE: CT of the abdomen and pelvis without intravenous contrast. Absence of intravenous contrast decreases sensitivity for detection of focal lesions and vascular pathology. CT imaging was performed with iterative reconstruction techniques and/or automated exposure control to reduce radiation dose. FINDINGS: LOWER THORAX: The tip of a central venous catheter terminates near the cavoatrial junction. There is a small, circumferential, simple attenuation pericardial effusion. There is subsegmental atelectasis/scarring in the dependent portions of both lungs. There is subpleural micronodularity in both lower lobes, right greater than left, nonspecific. There is no pleural effusion. HEPATOBILIARY: The liver appears unremarkable. Patient is status post cholecystectomy. There is no biliary ductal dilatation. SPLEEN: There is splenomegaly, measuring approximately 13.5 cm. PANCREAS: There is no solid mass or cystic lesion. There is no pancreatic ductal dilatation. There is no evidence of pancreatitis. ADRENALS: There is no adrenal nodule. KIDNEYS: There is nonspecific bilateral perirenal stranding. There is no nephroureterolithiasis. There is no hydroureter/hydronephrosis. There is no solid mass. PELVIC ORGANS: The bladder is decompressed. Patient is status post hysterectomy. The bilateral adnexal regions appear grossly unremarkable. Multiple calcified pelvic phleboliths are present. GI TRACT: There is no gastrointestinal distention to suggest obstruction. There is increased fecal retention, suggestive of mild constipation. There is no definite pathologic gastrointestinal wall thickening, with note made that the absence of enteral contrast and underdistention limit evaluation. There is no pneumatosis intestinalis/coli. Patient is status post appendectomy. PERITONEUM/RETROPERITONEUM: There is no free intraperitoneal air. There is no free fluid or focal drainable collection. LYMPHATIC: There is no lymphadenopathy. VESSELS: There is mild atherosclerotic calcification of the arterial vasculature. There is no evidence of aortic aneurysm. BONES AND SOFT TISSUES: There is demineralization and degenerative change of the visualized skeleton. There is no acute or suspicious osseous abnormality. There is an implanted pain pump within the subcutaneous soft tissues of the right flank with grossly intact lead that terminates within the spinal canal at the T8-9 level. Patient is status post surgical mesh repair of a ventral abdominal wall hernia without evidence of dehiscence. There is there is no hematoma or drainable fluid collection within the body wall. IMPRESSION: No acute abdominal or pelvic pathology. Specifically, no abnormality associated with the implanted pain pump. [facility]-[id number] Performing Organization Address City/State/Zipcode Phone Number [facility] [address] [place] [address] CT Head Wo Contrast (01/31/2019 6:00 PM CDT) Specimen Narrative Performed At EXAMINATION:CT HEAD WO CONTRAST [facility] CLINICAL HISTORY:HAdizzinessunsteady gait COMPARISON:MR brain 10/12/2018 TECHNIQUE: Noncontrast head CT performed using radiation dose reduction techniques.Technical factors are evaluated and adjusted to ensure appropriate moderation of exposure.Automated dose management technology is applied to adjust radiation exposure while achieving a diagnostic quality image. FINDINGS: No evidence of acute intracranial hemorrhage, mass, mass effect, midline shift, or acute infarct. Ventricles and sulci are normal in appearance for age.Basal cisterns are clear. Calvarium is intact. Status post left lens extraction. Mild polyploid mucosal thickening of the maxillary sinuses. Small right mastoid fluid. IMPRESSION: 1. No CT evidence of acute intracranial abnormality. [id number] Procedure Note Interface, Radiology Results Incoming - 01/31/2019 6:08 PM CDT EXAMINATION: CT HEAD WO CONTRAST CLINICAL HISTORY: CAVAZOS dizziness unsteady gait COMPARISON: MR brain 10/12/2018 TECHNIQUE: Noncontrast head CT performed using radiation dose reduction techniques. Technical factors are evaluated and adjusted to ensure appropriate moderation of exposure. Automated dose management technology is applied to adjust radiation exposure while achieving a diagnostic quality image. FINDINGS: No evidence of acute intracranial hemorrhage, mass, mass effect, midline shift , or acute infarct. Ventricles and sulci are normal in appearance for age. Basal cisterns are clear. Calvarium is intact. Status post left lens extraction. Mild polyploid mucosal thickening of the maxillary sinuses. Small right mastoid fluid. IMPRESSION: 1. No CT evidence of acute intracranial abnormality. [id number] Performing Organization Address [facility] Phone Number [facility] [address] [place] [phone] Blood culture, aerobic & anaerobic (01/31/2019 5:18 PM CDT)Only the most recent of4 resultswithin the time period is included. Pathologist [facility] Blood culture No growth after 5 days of incubation. [facility] isolate Comment: HOSPITAL Specimen Information Specimen Source: Blood Specimen Site: Line, port-a-cath Specimen Blood - Line, port-a-cath Performing Organization Address [facility] Phone Number [facility] DEPARTMENT OF PATHOLOGY AND [address] [place] [phone] [address] Troponin (01/31/2019 5:17 PM CDT) [facility] Troponin <0.006 0.000 - 0.040 [facility] Comment: ng/mL [facility] changed methodology effective: 01/09/2019 at 10:00 am The new method has a 99th percentile cutoff of 0.040 ng/mL Specimen Plasma specimen Performing Organization Address [facility] Phone Number [facility] DEPARTMENT OF PATHOLOGY AND [address] [place] [phone] [address] Lipase level (01/31/2019 5:17 PM CDT) [facility] Lipase 21 13 - 60 U/L [facility] Specimen Plasma specimen Performing Organization Address [facility] Phone Number [facility] DEPARTMENT OF PATHOLOGY AND [address] [place] [phone] [address] Urinalysis screen and microscopy, with reflex to culture (01/31/2019 5:00 PM CDT)Only the most recent of2 resultswithin the time period is included. Specimen site Midstream [facility] Color, UA Straw [facility] Appearance, UA Clear [facility] Specific gravity, UA 1.014 1.001 - 1.035 [facility] pH, UA 6.0 5.0 - 8.5 [facility] Protein, UA 1+ (A) Negative [facility] Glucose, UA Negative Negative [facility] Ketones, UA Negative Negative [facility] Bilirubin, UA Negative Negative [facility] Blood, UA Negative Negative [facility] Nitrite, UA Negative Negative [facility] Urobilinogen, UA <2.0 <2.0 [facility] Leukocyte esterase, Negative Negative [facility] Epithelial cells, UA 3 /HPF [facility] WBC, UA 2 0 - 4 /HPF [facility] RBC, UA <1 0 - 5 /HPF [facility] Bacteria, UA Few None seen [facility] Yeast, UA None seen [facility] Yeast with None seen [facility] pseudohyphae, [facility] Hyaline casts, UA 3 /LPF [facility] Specimen Urine Performing Organization Address City/State/Zipcode Phone Number [facility] DEPARTMENT OF PATHOLOGY AND [address] [place] [phone] [address] Partial thromboplastin time, activated (01/31/2019 5:00 PM CDT)Only the most recent of2 resultswithin the time period is included. PTT 29.6 23.0 - 36.0 [facility] Comment: [facility] HOSPITAL PTT therapeutic range for unfractionated heparin is 61.0-112.0 seconds which corresponds to Anti-Xa 0.3-0.7 U/ml. Specimen Blood Performing Organization Address City/[facility]/Zipcode Phone Number [facility] DEPARTMENT OF PATHOLOGY AND [address] [place] [phone] [address] Prothrombin time with INR (01/31/2019 5:00 PM CDT)Only the most recent of3 resultswithin the time period is included. Prothrombin time 13.4 11.5 - 14.5 [facility] INR 1.0 [place] Comment: [facility] International Normalized Ratio (INR) is a therapeutic HOSPITAL monitoring tool for patients who are stable on oral anticoagulant therapy. An INR of 2.0-3.0 is suggested for deep vein thrombosis/pulmonary embolism. Specimen Blood Performing Organization Address City/State/Zipcode Phone Number [facility] DEPARTMENT OF PATHOLOGY AND [address] [place] [address] Urine culture (01/31/2019 5:00 PM CDT)Only the most recent of2 resultswithin the time period is included. Pathologist [facility] Urine culture SEE COMMENTComment: [facility] Bacteriuria screen HOSPITAL negative. Specimen Performing Organization Address City/[facility] Phone Number [facility] DEPARTMENT OF PATHOLOGY AND [address] [place] [address] B natriuretic peptide (01/31/2019 5:00 PM CDT) BNP 30 0 - 100 pg/mL [facility] Specimen Performing Organization Address City/[facility] Phone Number [facility] DEPARTMENT OF PATHOLOGY AND [address] [place] [address] CT Chest Wo Contrast (01/23/2019 1:01 PM CDT)Only the most recent of2 resultswithin the time period is included. Specimen Narrative Performed At EXAMINATION: [facility] CT CHEST WO CONTRAST CLINICAL HISTORY: C34.91 Malignant neoplasm of unspecified part of right bronchus or lung, C34.92 Malignant neoplasm of unspecified part of left bronchus or lung, Lung cancernon-small cellstaging TECHNIQUE: Multiple axial images of the chest were obtained without intravenous contrast. The lack of intravenous contrast reduces the sensitivity of detecting solid organ disease and evaluating vasculature. Sagittal and coronal computerized reformatted images were also obtained. CT imaging was performed with iterative reconstruction techniques and/or automated exposure control to reduce radiation dose. COMPARISON: Chest CT 01/02/2019, 12/28/2017 IMPRESSION: 1.A 12 mm solid solid left upper lobe nodule is unchanged since the initial study. This will need ongoing long-term surveillance, as it could represent in situ or minimally invasive adenocarcinoma. 2.There is mild stable subsegmental atelectasis or scar in the medial lingula. 3.There is no acute consolidation. 4.No pleural effusion is present. 5.The heart size is normal. There is a small stable pericardial effusion. 6.There is no significant thoracic lymphadenopathy. 7.No significant upper abdominal finding is seen. 8.Port catheter is stable. [id number] Procedure Note Hm Interface, Radiology Results Incoming - 01/23/2019 2:53 PM CDT EXAMINATION: CT CHEST WO CONTRAST CLINICAL HISTORY: C34.91 Malignant neoplasm of unspecified part of right bronchus or lung, C34.92 Malignant neoplasm of unspecified part of left bronchus or lung, Lung cancer non-small cell staging TECHNIQUE: Multiple axial images of the chest were obtained without intravenous contrast. The lack of intravenous contrast reduces the sensitivity of detecting solid organ disease and evaluating vasculature. Sagittal and coronal computerized reformatted images were also obtained. CT imaging was performed with iterative reconstruction techniques and/or automated exposure control to reduce radiation dose. COMPARISON: Chest CT 01/02/2019, 12/28/2017 IMPRESSION: 1. A 12 mm solid solid left upper lobe nodule is unchanged since the initial study. This will need ongoing long-term surveillance, as it could represent in situ or minimally invasive adenocarcinoma. 2. There is mild stable subsegmental atelectasis or scar in the medial lingula. 3. There is no acute consolidation. 4. No pleural effusion is present. 5. The heart size is normal. There is a small stable pericardial effusion. 6. There is no significant thoracic lymphadenopathy. 7. No significant upper abdominal finding is seen. 8. Port catheter is stable. [id number] Performing Organization Address City/State/Zipcode Phone Number [facility] [address] [place] [address] HI Lung Quantitative Differential Function Ventilation / Perfusion (01/23/2019 12:03 PM CDT) Specimen Narrative Performed At EXAMINATION: [place] LUNG QUANTITATIVE DIFFERENTIAL FUNCTION VENTILATION [facility] PERFUSION CLINICAL HISTORY: C34.91 Malignant neoplasm of unspecified part of right bronchus or lung, C34.92 Malignant neoplasm of unspecified part of left bronchus or lung, preoperative testing TECHNIQUE: The patient breathed 15-20 mCi of xenon-133 gas through a closed ventilation system while dynamic imaging of the lungs was performed in the posterior and anterior projections. The patient was then injected with 5 mCi of [id number] intravenously, followed by imaging of the lungs in 8 projections. Quantitation was performed using the geometric mean of the anterior and posterior perfusion images. FINDINGS: Attenuation artifacts left upper lobe on the anterior ventilation image. No sharply defined perfusion defects. QUANTITATION: Left Lung Upper 1/3=15% Middle 1/3=23% Lower 1/3=7% Total Left Lung=45% Right Lung Upper 1/3=7% Middle 1/3=27% Lower 1/3=21% Total Right Lung=55% IMPRESSION: 1.No well-defined perfusion defects. 2.Quantitation as above. [facility]-[id number] Procedure Note [facility], Radiology Results Incoming - 01/23/2019 1:20 PM CDT EXAMINATION: [place] LUNG QUANTITATIVE DIFFERENTIAL FUNCTION VENTILATION PERFUSION CLINICAL HISTORY: C34.91 Malignant neoplasm of unspecified part of right bronchus or lung, C34.92 Malignant neoplasm of unspecified part of left bronchus or lung, preoperative testing TECHNIQUE: The patient breathed 15-20 mCi of xenon-133 gas through a closed ventilation system while dynamic imaging of the lungs was performed in the posterior and anterior projections. The patient was then injected with 5 mCi of [id number] intravenously, followed by imaging of the lungs in 8 projections. Quantitation was performed using the geometric mean of the anterior and posterior perfusion images. FINDINGS: Attenuation artifacts left upper lobe on the anterior ventilation image. No sharply defined perfusion defects. QUANTITATION: Left Lung Upper 1/3=15% Middle 1/3=23% Lower 1/3=7% Total Left Lung=45% Right Lung Upper 1/3=7% Middle 1/3=27% Lower 1/3=21% Total Right Lung=55% IMPRESSION: 1. No well-defined perfusion defects. 2. Quantitation as above. [facility]-[id number] Performing Organization Address City/State/Zipcode Phone Number [facility] [address] [place] [address] Spirometry pre & post w/ bronchodilator, diffusion, lung volumes (2018 10:16 AM CDT) FEV1 Post 1.66 1.95 - 3.05 L [facility] FEV1/FVC % Post 73.14 69.33 - 88.92 % [facility] FVC Post 2.27 2.54 - 3.84 L [facility] PEF Post 3.02 4.63 - 7.84 L/s [facility] FEF 25-75% Post 1.29 1.29 - 3.61 L/s [facility] FEV1 Pre 1.54 1.95 - 3.05 L [facility] FEV1/FVC % Pre 72.29 69.33 - 88.92 % [facility] FVC Pre 2.13 2.54 - 3.84 L [facility] PEF Pre 3.62 4.63 - 7.84 L/s [facility] FEF 25-75% Pre 1.05 1.29 - 3.61 L/s [facility] DLCO Pre 11.79 14.86 - 27.86 [facility] ml/(min*mmHg) DL/VA Pre 3.57 3.30 - 5.93 [facility] ml/(min*mmHg*L) VA SB Pre 3.31 3.63 - 5.84 L [facility] DLCOc Pre 11.79 14.86 - 27.86 [facility] ml/(min*mmHg) KCOc SB Pre 3.57 3.30 - 5.93 [facility] ml/(min*mmHg*L) Hb Pre 13.40 g(Hb)/dL [facility] R0.5IN Pre 1.79 3.06 - 3.06 [facility] cmH2O*s/L FRCpl Pre 2.30 1.76 - 3.41 L [facility] RV Pre 1.93 1.15 - 2.31 L [facility] TLC Pre 3.77 3.62 - 5.59 L [facility] RV % TLC Pre 51.10 28.07 - 47.25 % [facility] VC Pre 1.85 2.54 - 3.84 L [facility] ERV Pre 0.37 0.85 - 0.85 L [facility] IC Pre 1.47 1.89 - 1.89 L [facility] sR0.5IN Pre 4.94 cmH2O*s [facility] Raw Pre 4.78 3.06 - 3.06 [facility] cmH2O*s/L sGaw Predicted 0.08 0.10 - 0.10 [facility] 1/(cmH2O*s) FEV1 Predicted 2.50 [facility] FEV1 LLN 1.95 [facility] FEV1 % Pre of Predicted 61.5 % [facility] FEV1 % Post of Predicted 66.4 % [facility] FEV1 % Change 8.0 % [facility] FVC Predicted 3.19 [facility] FVC LLN 2.54 [facility] FVC % Pre of Predicted 66.6 % [facility] FVC % Post of Predicted 71.1 % [facility] FVC % Change 6.7 % [facility] FEV1/FVC % Predicted 79 [facility] FEV1/FVC % LLN 69 [facility] FEV1/FVC % Pre of 91.4 % [facility] Predicted FEV1/FVC % Post of 92.4 % [facility] Predicted FEV1/FVC % Change 1.2 % [facility] FEF 25-75% Predicted 2.45 [facility] FEF 25-75% LLN 1.29 [facility] FEF 25-75% % Pre of 43.1 % [facility] Predicted FEF 25-75% % Post of 52.7 % [facility] Predicted FEF 25-75% % Change 22.3 % [facility] PEF Predicted 6.24 [facility] PEF LLN 4.63 [facility] PEF % Pre of Predicted 58.0 % [facility] [facility] PEF % Post of Predicted 48.4 % [facility] PEF % Change -16.6 % [facility] VC Predicted 3.19 [facility] VC LLN 2.54 [facility] VC % Pre of Predicted 57.8 % [facility] ERV Predicted 0.85 [facility] ERV LLN 0.85 [facility] ERV % Pre of Predicted 43.8 % [facility] FRCpl % Predicted 2.58 [facility] FRCpl % LLN 1.76 [facility] FRCpl % Pre of Predicted 89.1 % [facility] IC Predicted 1.89 [facility] IC LLN 1.89 [facility] IC % Pre of Predicted 78.1 % [facility] RV Predicted 1.73 [facility] RV LLN 1.15 [facility] RV % Pre of Predicted 111.5 % [facility] RV % TLC Predicted 38 [facility] RV % TLC LLN 28 [facility] RV % TLC % Pre of 135.7 % [facility] Predicted TLC Predicted 4.60 [facility] TLC LLN 3.62 [facility] TLC % Pre of Predicted 82.0 % [facility] Raw Predicted 3.06 [facility] Raw LLN 3.06 [facility] Raw % Pre of Predicted 156.3 % [facility] R0.5IN Predicted 3.06 [facility] R0.5IN LLN 3.06 [facility] R0.5IN % Pre of 58.5 % [facility] Predicted sGaw Predicted 0.10 [facility] sGaw LLN 0.10 [facility] sGaw % Pre of Predicted 74.4 % [facility] DLCO Predicted 21.36 [facility] DLCO LLN 14.86 [facility] DLCO % Pre of Predicted 55.2 % [facility] DLCOc Predicted 21.36 [facility] DLCOc LLN 14.86 [facility] DLCOc % Pre of Predicted 55.2 % [facility] DL/VA Predicted 4.62 [facility] DL/VA LLN 3.30 [facility] DL/VA % Pre of Predicted 77.2 % [facility] KCOc SB Predicted 4.62 [facility] KCOc SB LLN 3.30 [facility] KCOc SB % Pre of 77.2 % [facility] Predicted VA SB Predicted 4.73 [facility] VA SB LLN 3.63 [facility] VA SB % Pre of Predicted 69.9 % [facility] Specimen Narrative Performed At Performing Organization Address City/State/Zipcode Phone Number [facility] [address] [place] [address] CT Chest Wo Contrast Abdomen Wo Contrast Pelvis Wo Contrast (01/02/2019 12:41 PM CDT)Only the most recent of2 resultswithin the time period is included. Specimen Narrative Performed At EXAMINATION:CT CHEST WO CONTRAST ABDOMEN WO CONTRAST PELVIS WO HM RADIANT CONTRAST CLINICAL HISTORY:C34.91 Malignant neoplasm of unspecified part of right bronchus or lung, C34.92 Malignant neoplasm of unspecified part of left bronchus or lung, Bilateral Lung Cancer TECHNIQUE: Multiple axial images of the chest, abdomen, and pelvis were obtained without intravenous contrast. The lack of intravenous contrast reduces the sensitivity of detecting solid organ disease. Sagittal and coronal computerized reformatted images were obtained.Automatic exposure control and iterative reconstruction techniques used to reduce dose. COMPARISON:December 06, 2018 FINDINGS: Chest: Interval improvement in disease. Interstitial opacities which were present in the bilateral lower lobes have significantly decreased from prior. However a somewhat wedge-shaped 1 cm groundglass opacity peripherally in the left upper lobe remain stable. Small scattered 1 to 2 mm reticular nodular changes in the right upper lobe have decreased from prior. Findings are likely the result of improving infectious process but continued follow-up is recommended Patient has undergone prior right upper lobectomy No significant lymphadenopathy or pleural effusions present There is a small pericardial effusion present. Abdomen/Pelvis: An implanted centimeters present in the right abdominal. Small 1.5 cm pocket of fluid is present along the pump catheter at the L4-L5 level, unchanged to slightly decreased from prior Mass is present along the anterior abdominal wall The liver, spleen, pancreas, adrenals and left kidney are within normal limits. Punctate 1 mm nonobstructing calyceal calcification in the right kidney The small bowel and the colon are within normal limits Pelvis: No significant lymphadenopathy, solid masses or free fluid present Age related changes are present throughout the bony structures without evidence of a suspicious focal lesion. IMPRESSION: Interval improvement of infiltrate which was present previously in the bilateral lower lobes. Bilateral pleural effusions have significantly decreased and nearly completely resolved. A groundglass opacity peripherally in the left upper lobe is unchanged. Mild reticular nodular changes in the superior segment of the right lower lobe likely infectious/inflammatory in nature [id number] Procedure Note [facility], Radiology Results Incoming - 01/02/2019 2:02 PM CDT EXAMINATION: CT CHEST WO CONTRAST ABDOMEN WO CONTRAST PELVIS WO CONTRAST CLINICAL HISTORY: C34.91 Malignant neoplasm of unspecified part of right bronchus or lung, C34.92 Malignant neoplasm of unspecified part of left bronchus or lung, Bilateral Lung Cancer TECHNIQUE: Multiple axial images of the chest, abdomen, and pelvis were obtained without intravenous contrast. The lack of intravenous contrast reduces the sensitivity of detecting solid organ disease. Sagittal and coronal computerized reformatted images were obtained.Automatic exposure control and iterative reconstruction techniques used to reduce dose. COMPARISON: December 06, 2018 FINDINGS: Chest: Interval improvement in disease. Interstitial opacities which were present in the bilateral lower lobes have significantly decreased from prior. However a somewhat wedge-shaped 1 cm groundglass opacity peripherally in the left upper lobe remain stable. Small scattered 1 to 2 mm reticular nodular changes in the right upper lobe have decreased from prior. Findings are likely the result of improving infectious process but continued follow-up is recommended Patient has undergone prior right upper lobectomy No significant lymphadenopathy or pleural effusions present There is a small pericardial effusion present. Abdomen/Pelvis: An implanted centimeters present in the right abdominal. Small 1.5 cm pocket of fluid is present along the pump catheter at the L4-L5 level, unchanged to slightly decreased from prior Mass is present along the anterior abdominal wall The liver, spleen, pancreas, adrenals and left kidney are within normal limits. Punctate 1 mm nonobstructing calyceal calcification in the right kidney The small bowel and the colon are within normal limits Pelvis: No significant lymphadenopathy, solid masses or free fluid present Age related changes are present throughout the bony structures without evidence of a suspicious focal lesion. IMPRESSION: Interval improvement of infiltrate which was present previously in the bilateral lower lobes. Bilateral pleural effusions have significantly decreased and nearly completely resolved. A groundglass opacity peripherally in the left upper lobe is unchanged. Mild reticular nodular changes in the superior segment of the right lower lobe likely infectious/inflammatory in nature [id number] Performing Organization Address City/[facility] Phone Number [address] [address] Bilirubin direct (01/02/2019 12:37 PM CDT) Bilirubin direct <0.2 0.0 - 0.3 mg/dL [facility] Specimen Plasma specimen Performing Organization Address City/[facility] Phone Number [facility] DEPARTMENT OF PATHOLOGY AND [address] [place] [address] GENOMIC MEDICINE [address] [address] Manual differential (12/15/2018 5:08 AM CDT)Only the most recent of11 resultswithin the time period is included. Manual differential PERFORMED [facility] Neutrophils 56.0 39.0 - 69.0 % [facility] Lymphocytes 28.0 25.0 - 45.0 % [facility] Monocytes 10.0 0.0 - 10.0 % [facility] Eosinophils 4.0 0.0 - 5.0 % [facility] Basophils 0.0 0.0 - 1.0 % [facility] Metamyelocytes 1 % [facility] Myelocytes 1 % [facility] Promyelocytes 0 % [facility] Platelet slide review Karlee adequate [facility] Anisocytosis Moderate [facility] Polychromasia Moderate [facility] Spherocytes Occasional [facility] Ovalocytes Moderate [facility] Specimen Performing Organization Address City/State/Zipcode Phone Number [facility] DEPARTMENT OF PATHOLOGY AND [address] [place] [address] GENOMIC MEDICINE [facility] [address] [place] [address] Surgical pathology request (12/12/2018 3:46 PM CDT)Only the most recent of2 resultswithin the time period is included. [facility] DEPARTMENT OF PATHOLOGY AND GENOMIC MEDICINE Surgical pathology See link below [facility] DEPARTMENT OF report for PDF Lab PATHOLOGY AND Report GENOMIC MEDICINE Result status This is Final [facility] DEPARTMENT OF Report for PATHOLOGY AND [id number] GENOMIC MEDICINE Specimen Performing Organization Address City/[facility] Phone Number [facility] DEPARTMENT OF PATHOLOGY AND [address] [place] [address] GENOMIC MEDICINE Echocardiogram complete w contrast and 3D if needed (12/11/2018 12:08 PM CDT) Specimen Narrative Performed At [facility] Echocardiography Report [address] [place] [address] Pat.Name[facility]HA [facility][id number] .Date: 12/11/2018 Refer.MD:PEÑA REECE MD Exam Time: 10:42:00 AM Study Type:Routine Echo Height:62inWeight: 224lb BSA: 2.01 m2 DOBAge:1965,53Y Sex: FEMALEBP:148/84 HR:89 bpmSonogrphr: SEPIDEH Starkey Pat. Stat.:Inpatient Room:[id number] Study Status:Final Echo Event ID:[id number] Order ID:[id number] Reason for Study:SOB, suspected cardiac etiology Procedures:2D Echo, Colorflow Doppler, Strain Race: SUMMARY: LV EF is normal.Estimated EF is 60-64%. RV systolic function is normal. Small posterolateral pericardial effusion. LV filling pressure is normal. FINDINGS: LV: LV size is normal. LV EF is normal. Difficult to assess regionalwall motion; however it appears grossly normal. EstimatedEF is 60-64%. RV: RV size is mildly enlarged. RV systolic function is normal. LA: LA volume is mildly enlarged. RA: RA size is normal. AO: Aortic root diameter is normal. SOULEYMANE: Small posterolateral pericardial effusion. AV: No structural AV abnormalities noted. MV: No structural MV abnormalities noted. A trace of mitral regurgitation. PV: No structural PV abnormalities noted. TV: No structural TV abnormalities noted. A trace of tricuspid regurgitation Moscoso: LV relaxation is impaired. LV filling pressure is normal. Hepaticvein pressure is normal, RA pressure < 5mmHg. Other:Insufficient TR jet to estimate PA systolic pressure. MEASUREMENTS: 2D Parasternal Long Rudolph LVOT 2 cmLA Ds5.8 cm LVIDd4.3 cmIndex2.1 cm/m Ao An1.9 cm LVIDs2.4 cmAo Rtd 3 cm Index1.5 cm/m LV%fs 44.2 % LV Mydw248.2 g(87-129) IVSd 1.1 cmLVM Index 78.7 g/m2 LVPWd1 cmRWT0.5 LA Sng Plane LA Area 22.7 cm2(8.8-23.4) LA Vol77.1 ml Index38.4 ml/m LA LngAx 5.5 cm RA Sng Plane RA Area 18.5 cm2(8.3-19.5) RA Vol54 ml Index26.9 ml/m RA LngAx 5.3 cm DOPPLER LVOT For Flow LVOT Area3.1 cm2 LVOT SV 66.6 ml DFAIthKay895.5 cm/sHR94.3 bpm LVOTpkPG 5.8 mmHgLVOT CO6.3 l/min LVOTmnPG 2.6 mmHgLVOT CI3.1 l/m/m2 LVOT TVI21.2 cm Signed 12/11/2018 02:27 PM Aurelia Grider MD Procedure Note Interface, Radiology Results In - 12/11/2018 2:28 PM CDT Echocardiography Report [address] [place] [address] Pat.Name: ANISHA SUERO Pat.ID: [id number] St.Date: 12/11/2018 Refer.MD: PEÑA REECE MD Exam Time: 10:42:00 AM Study Type:Routine Echo Height: 62in Weight: 224lb BSA: 2.01 m2 Age: 10 1965,53Y Sex: FEMALE BP: 148/84 HR: 89 bpm Sonogrphr: SEPIDEH Starkey Pat. Stat.:Inpatient Room: [facility] Study Status:Final Echo Event ID:[id number] Order ID: [id number] Reason for Study:SOB, suspected cardiac etiology Procedures:2D Echo, Colorflow Doppler, Strain Race: SUMMARY: LV EF is normal.Estimated EF is 60-64%. RV systolic function is normal. Small posterolateral pericardial effusion. LV filling pressure is normal. FINDINGS: LV: LV size is normal. LV EF is normal. Difficult to assess regional wall motion; however it appears grossly normal. Estimated EF is 60-64%. RV: RV size is mildly enlarged. RV systolic function is normal. LA: LA volume is mildly enlarged. RA: RA size is normal. AO: Aortic root diameter is normal. SOULEYMANE: Small posterolateral pericardial effusion. AV: No structural AV abnormalities noted. MV: No structural MV abnormalities noted. A trace of mitral regurgitation. PV: No structural PV abnormalities noted. TV: No structural TV abnormalities noted. A trace of tricuspid regurgitation Moscoso: LV relaxation is impaired. LV filling pressure is normal. Hepatic vein pressure is normal, RA pressure < 5mmHg. Other: Insufficient TR jet to estimate PA systolic pressure. MEASUREMENTS: 2D Parasternal Long Rudolph LVOT 2 cm LA Ds 5.8 cm LVIDd 4.3 cm Index 2.1 cm/m Ao An 1.9 cm LVIDs 2.4 cm Ao Rtd 3 cm Index 1.5 cm/m LV%fs 44.2 % LV Mass 158.2 g (87-129) IVSd 1.1 cm LVM Index 78.7 g/m2 LVPWd 1 cm RWT 0.5 LA Sng Plane LA Area 22.7 cm2 (8.8-23.4) LA Vol 77.1 ml Index 38.4 ml/m LA LngAx 5.5 cm RA Sng Plane RA Area 18.5 cm2 (8.3-19.5) RA Vol 54 ml Index 26.9 ml/m RA LngAx 5.3 cm DOPPLER LVOT For Flow LVOT Area 3.1 cm2 LVOT SV 66.6 ml LVOTpkVel 120.5 cm/s HR 94.3 bpm LVOTpkPG 5.8 mmHg LVOT CO 6.3 l/min LVOTmnPG 2.6 mmHg LVOT CI 3.1 l/m/m2 LVOT TVI 21.2 cm Signed 12/11/2018 02:27 PM Aurelia Grider MD Performing Organization Address City/State/Zipcode Phone Number [facility] [address] [place] [address] Vancomycin level, random (12/11/2018 10:42 AM CDT)Only the most recent of2 resultswithin the time period is included. Vancomycin, random 22.4 ug/mL [facility] Specimen Serum Performing Organization Address City/State/Zipcode Phone Number [facility] DEPARTMENT OF PATHOLOGY AND [address] [place] [address] GENOMIC MEDICINE [facility] [address] [place] [address] TB T-SPOT (12/11/2018 5:30 AM CDT) [facility] TB T-SPOT SEE NOTE [facility] - [facility] RE[facility] Comment: LAB T-SPOT TUBERCULOSIS Nil Control: 0 Panel A: 0 Panel B: 0 Positive Control: SAT Result:NEGATIVE NOTE: TMTC INDICATES TOO MANY SPOTS TO COUNT SAT INDICATES THE WELL WAS SATURATED RESULTS INTERPRETATION: RESULTS ARE NEGATIVE WHEN (PANEL A-NIL) OR (PANEL B-NIL) <=4 SPOTS, INCLUDING VALUES LESS THAN ZERO. RESULTS ARE POSITIVE WHEN (PANEL A-NIL) OR (PANEL B-NIL) >=8 SPOTS RESULTS ARE BORDERELINE WHEN EITHER (PANEL A-NIL) OR (PANEL B-NIL)=5,6,0R 7. THE TEST IS INVALID WHEN EITHER OF THE FOLLOWING CONDITIONS IS MET: 1.) THE NIL CONTROL HAS >10 SPOTS 2.) THE MITOGEN (POSITIVE CONTROL) HAS <20 SPOTS AND BOTH (PANEL A-NIL) AND (PANEL B-NIL) <=4 SPOTS. M. TUBERCULOSIS INFECTION UNLIKELY, BUT CANNOT BE EXCLUDED ESPECIALLY WHEN: 1. ANY ILLNESS IS CONSISTENT WITH TB DISEASE. 2. LIKELIHOOD OF PROGRESSION TO DISEASE (e.g. DUE TO IMMUNOSUPPRESSION) IS INCREASED. LIMITATIONS: DIAGNOSING OR EXCLUDING TUBERCULOSIS DISEASE, AND ASSESSING THE PROBABILITY OF LTBI, REQUIRES A COMBINATION OF EPIDEMIOLOGICAL, HISTORICAL, MEDICAL, AND DIAGNOSTIC FINDINGS THAT SHOULD BE TAKEN INTO ACCOUNT WHEN INTERPRETING T-SPOT.TB REFER TO THE MOST RECENT CDC GUIDANCE (HTTP: //WWW.CDC.GOV/NCHSTP/TB) FOR DETAILED RECOMMENDATIONS ABOUT DIAGNOSING TB INFECTION (INCLUDING DISEASE) AND SELECTING PERSONS FOR TESTING. 1.) A FALSE NEGATIVE RESULT CAN BE CAUSED BY INCORRECT BLOOD SAMPLE COLLECTION OR IMPROPER HANDLING OF THE SPECIMEN, AFFECTING LYMPHOCYTE FUNCTION 2.) THE PERFORMANCE OF T-SPOT.TB HAS NOT BEEN ADEQUATELY EVALUATED WITH SPECIMENS FROM INDIVIDUALS YOUNGER THANAGE 17 YEARS, IN WOMEN, AND IN PATIENTS WITH HEMOPHILIA. 3-) A FALSE POSITIVE RESULT WAS OBTAINED FOR T-SPOT.TB WHEN TESTED IN SUBJECTS WITH M. XENOPI, M. KANSASII, AND M. GORDONAE.WHILE ESAT-6 AND CFP-10 ANTIGENS ARE ABSENT FROM BCG STRAINS OF M. BOVIS AND FROM MOST ENVIRONMENTAL MYCOBACTERIA, IT IS POSSIBLE THAT A POSITIVE T-SPOT.TB RESULT MAY BE DUE TO INFECTION WITH M. KANSASII, M. SZULGAI, M. GORDONAE, OR M. MARINUM. ALTERNATIVE TESTS WOULD BE REQUIRED IF THESE INFECTIONS ARE SUSPECTED. 4.) A NEGATIVE TEST RESULT DOES NOT EXCLUDE THE POSSIBILITY OF EXPOSURE TO, OR INFECTION WITH, M. TUBERCULOSIS. PATIENTS WITH RECENT EXPOSURE TO TB INFECTED INDIVIDUALS EXHIBITING A NEGATIVE T-SPOT.TB RESULT SHOULD BE CONSIDERED FOR RETESTING WITHIN 6 WEEKS OR IF OTHER RELEVANT CLINICAL SYMPTOMS INDICATE POSSIBLE INFECTION. 5.) A POSITIVE TEST RESULT DOES NOT RULE IN ACTIVE TB DISEASE; OTHER TESTS SHOULD BE PERFORMED TO CONFIRM THE DIAGNOSIS OF ACTIVE TB DISEASE SUCH SPUTUM SMEAR AND CULTURE, PCR AND CHEST RADIOGRAPHY. 6.) T-SPOT.TB TEST HAS NOT BEEN EVALUATED IN SUBJECTS WHO HAVE RECEIVED >1 MONTH OF ANTI-TB THERAPY. 7. ) REFRIGERATED AND FROZEN SAMPLES ARE NOT RECOMMENDED FOR USE WITH T=SPOT.TB TEST. Performed by: [facility] Molecular Tuberculosis Laboratory [facility] ([id number]) [place], [place] [address] Specimen Blood Performing Organization Address City/[facility] Phone Number [facility] DEPARTMENT OF PATHOLOGY AND [address] [place] [phone] [place] [address] - [facility] Vancomycin level, trough (12/10/2018 2:50 PM CDT) [facility] Vancomycin, 28.6 (HH) 10.0 - 20.0 [facility] trough Comment: ug/mL HOSPITAL Therapeutic Ranges: Peak 30.0 - 40.0 ug/mL Fdavuo43.0 - 20.0 ug/mL Specimen Serum Performing Organization Address [facility]/Zipcode Phone Number [facility] DEPARTMENT OF PATHOLOGY AND [address] [place] [address] [employer] MEDICINE [address] [address] Parvovirus, quantitative PCR (12/08/2018 7:10 PM CDT) [facility] Parvovirus, PCR Not-Detected Not-Detected [facility]/mL [facility] Parvovirus, PCR See link below [facility] for [facility] Lab HOSPITAL ReportComment: Specimen Performing Organization Address City/[facility] Phone Number [facility] DEPARTMENT OF PATHOLOGY AND [address] [place] [phone] [place] [address] Histoplasma antigen, urine (12/08/2018 7:10 PM CDT) Pathologist [facility] Histoplasma antigen, None Detected ng/mL [facility] urine Comment: HOSPITAL INTERPRETATION: HISTOPLASMA ANTIGEN -Reference interval: None Detected -Results reported as ng/mL in 0.4 - 19.0 ng/mL -Results above the limit of detection but below 0.4 ng/mL are reported as 'Positive, Below the Limit of Quantification' -Results above 19.0 ng/mL are reported as 'Positive, Above the Limit of Quantification' Specimen Urine Performing Organization Address [facility] Phone Number [facility] DEPARTMENT OF PATHOLOGY AND [address] [place] [address] Bone marrow tray (12/08/2018 3:03 PM CDT) Pathologist [facility] Bone marrow tray Done [facility] Specimen Fluid Performing Organization Address [facility] Phone Number [facility] DEPARTMENT OF PATHOLOGY AND [address] [place] [address] Varicella zoster by PCR (12/08/2018 12:52 PM CDT) Pathologist [facility] VZV result Not-Detected Not-Detected [facility] copies/mL [facility] Varicella zoster, See link below [facility] pcr for PDF Lab HOSPITAL ReportComment: Specimen Bronchial alveolar lavage Performing Organization Address [facility] Phone Number [facility] DEPARTMENT OF PATHOLOGY AND [address] [place] [phone] [place] [address] Herpes simplex virus by PCR (12/08/2018 12:52 PM CDT) Pathologist [facility] Herpes virus, PCR Not-Detected Not-Detected [facility] Herpes virus, PCR See link below [facility] for PDF Lab HOSPITAL ReportComment: Specimen Bronchial alveolar lavage Performing Organization Address City/[facility]/Zipcode Phone Number [facility] DEPARTMENT OF PATHOLOGY AND [address] [place] [phone] [place] [address] [facility] Respiratory culture (12/08/2018 12:51 PM CDT)Only the most recent of2 resultswithin the time period is included. Respiratory culture No growth after 2 days. [facility] isolate Comment: HOSPITAL Specimen Information Specimen Source: Bronchial alveolar lavage Specimen Site: RML (right middle lobe) Specimen Bronchial alveolar lavage - RML (right middle lobe) Performing Organization Address [facility] Phone Number [facility] DEPARTMENT OF PATHOLOGY AND [address] [place] [phone] Fungus smear (12/08/2018 12:51 PM CDT)Only the most recent of2 resultswithin the time period is included. Fungus smear No fungi observed. [facility] Comment: HOSPITAL Specimen Information Specimen Source: Bronchial alveolar lavage Specimen Site: RML (right middle lobe) Specimen Bronchial alveolar lavage - RML (right middle lobe) Performing Organization Address [facility] Phone Number [facility] DEPARTMENT OF PATHOLOGY AND [address] [place] [phone] [place] [address] BAL T4T8 (12/08/2018 12:51 PM CDT) Pathologist [facility] CD3 BAL FC 97.2 % [facility] CD4 BAL FC 58.7 % [facility] CD8 BAL FC 32.8 % [facility] CD4 BAL/CD8 BAL 1.79 [facility] BAL T4T8 See link below [facility] for PDF Lab HOSPITAL ReportComment: Specimen Performing Organization Address [facility] Phone Number [facility] DEPARTMENT OF PATHOLOGY AND [address] [place] [phone] [place] [phone] [place] [address] BAL cell count and differential (12/08/2018 12:51 PM CDT) BAL specimen source RML BAL [facility] BAL cell count 0.103 m/mL [facility] Comment: HOSPITAL Normal ranges: Nonsmokers: 0.007 - 0.363 Smokers: 0 - 1.31 BAL PAMS 48 % [facility] Comment: HOSPITAL Normal ranges: Nonsmokers: 65 - 100 Smokers: 81 - 100 BAL PMNS 9 % [facility] Comment: HOSPITAL Normal ranges: Nonsmokers: 0 - 3 Smokers: 0 - 2 BAL eosinophils 6 % [facility] Comment: HOSPITAL Normal ranges: Nonsmokers: 0 - 1 Smokers: 0 - 1 BAL lymphs 37 % [facility] Comment: HOSPITAL Normal ranges: Nonsmokers: 0 - 10 Smokers: 0 - 5 Specimen Fluid Performing Organization Address [facility] Phone Number [facility] DEPARTMENT OF PATHOLOGY AND [address] [place] [address] Nocardia culture (12/08/2018 12:51 PM CDT)Only the most recent of2 resultswithin the time period is included. Nocardia culture No Nocardia isolated after 7 days. [facility] isolate Comment: HOSPITAL Specimen Information Specimen Source: Bronchial alveolar lavage Specimen Site: RML (right middle lobe) Specimen Bronchial alveolar lavage - RML (right middle lobe) Performing Organization Address [facility] Phone Number [facility] DEPARTMENT OF PATHOLOGY AND [address] [place] [phone] Legionella culture (12/08/2018 12:51 PM CDT) Legionella culture No Legionella isolated. [facility] isolate Comment: HOSPITAL Specimen Information Specimen Source: Bronchial alveolar lavage Specimen Site: RML (right middle lobe) Specimen Bronchial alveolar lavage - RML (right middle lobe) Performing Organization Address City/[facility] Phone Number [facility] DEPARTMENT OF PATHOLOGY AND [address] [place] [address] AFB stain (12/08/2018 12:51 PM CDT)Only the most recent of2 resultswithin the time period is included. AFB stain No acid fast bacilli (AFB) seen. [facility] Comment: HOSPITAL Specimen Information Specimen Source: Bronchial alveolar lavage Specimen Site: RML (right middle lobe) Specimen Bronchial alveolar lavage - RML (right middle lobe) Performing Organization Address City/[facility]/Zipcode Phone Number [facility] DEPARTMENT OF PATHOLOGY AND [address] [place] [address] Cytology (non-gynecological) request (12/08/2018 12:42 PM CDT) [facility] DEPARTMENT OF PATHOLOGY AND GENOMIC MEDICINE Cytology See link below [facility] DEPARTMENT OF (non-gynecological) for PDF Lab PATHOLOGY AND report Report GENOMIC MEDICINE Result status This is Final [facility] DEPARTMENT OF Report for PATHOLOGY AND [id number] GENOMIC MEDICINE Specimen Performing Organization Address [facility] Phone Number [facility] DEPARTMENT OF PATHOLOGY AND [address] [place] [address] HIV Ag/Ab combination (12/08/2018 5:00 AM CDT) Pathologist [facility] HIV Ag/Ab combination Non-reactive Non-reactive [facility] Specimen Serum Performing Organization Address [facility] Phone Number [facility] DEPARTMENT OF PATHOLOGY AND [address] [place] [address] [place] [address] lambda free light chain with ratio (12/08/2018 5:00 AM CDT)Only the most recent of2 resultswithin the time period is included. Pathologist [facility] [place] light chain 158.97 (H) 3.30 - 19.40 [facility] mg/L [facility] Lambda light chain 75.94 (H) 5.70 - 26.30 [facility] mg/L [facility] [place] lambda ratio 2.09 (H) 0.26 - 1.65 [facility] Specimen Plasma specimen Performing Organization Address [facility] Phone Number [facility] DEPARTMENT OF PATHOLOGY AND [address] [place] [address] Hepatitis acute panel (12/08/2018 5:00 AM CDT) Hepatitis A IgM Non-reactive Non-reactive [facility] Hepatitis B core Non-reactive Non-reactive [facility] Hepatitis B surface Non-reactive Non-reactive [facility] Hepatitis C Ab Non-reactive Non-reactive [facility] Specimen Serum Performing Organization Address City/[facility] Phone Number [facility] DEPARTMENT OF PATHOLOGY AND [address] [place] [address] Fibrinogen (12/08/2018 5:00 AM CDT) Fibrinogen 869 (H) 200 - 450 mg/dL [facility] Specimen Blood Performing Organization Address City/[facility] Phone Number [facility] DEPARTMENT OF PATHOLOGY AND [address] [place] [address] Uric acid level (12/08/2018 5:00 AM CDT)Only the most recent of4 resultswithin the time period is included. [facility] Uric acid 4.7 2.4 - 5.7 mg/dL [facility] Specimen Plasma specimen Performing Organization Address [facility] Phone Number [facility] DEPARTMENT OF PATHOLOGY AND [address] [place] [address] Streptococcus pneumoniae urinary antigen (12/07/2018 5:50 PM CDT) Pathologist [facility] Strep pneumo Negative for Streptococcus pneumoniae antigen. [facility] urinary Ag Comment: HOSPITAL Specimen Information Specimen Source: Urine Specimen Site: Midstream Specimen Urine - Midstream Performing Organization Address [facility] Phone Number [facility] DEPARTMENT OF PATHOLOGY AND [address] [place] [address] Aspergillus Ab by CF, serum (12/07/2018 4:05 PM CDT) Aspergillus Ab CF <1:8 <1:8 [facility] Comment: INTERPRETIVE INFORMATION: Aspergillus Antibody by Complement Fixation (CF) Cross-reactions with dimorphic fungi are not unusual within the genus Aspergillus. A negative test does not exclude infection, especially in immuno- compromised patients. Best use of test is with paired sera taken three weeks apart to detect a rise in titer against a single antigen. Performed by [employer], [address] [place] [address] [email or web address], Arsenio Santos MD - Lab. Director Specimen Serum Performing Organization Address City/[facility]/Zipcode Phone Number [facility] [address] [place] [address] [facility] [address] [place] [address] Smear review (12/07/2018 5:15 AM CDT)Only the most recent of3 resultswithin the time period is included. Platelet slide review Decreased (A) [facility] Anisocytosis Moderate [facility] Polychromasia Moderate [facility] Enlarged platelets Moderate (A) [facility] Specimen Performing Organization Address City/[facility] Phone Number [facility] DEPARTMENT OF PATHOLOGY AND [address] [place] [address] Peripheral smear (12/07/2018 5:15 AM CDT) Peripheral smear Done [facility] Comment: HOSPITAL Peripheral smear is located in Hematology Laboratory, second floor of [facility]. Specimen Blood Performing Organization Address City/[facility] Phone Number [facility] DEPARTMENT OF PATHOLOGY AND [address] [place] [address] Haptoglobin (12/07/2018 4:00 AM CDT) Pathologist [facility] Haptoglobin 498 (H) 30 - 200 mg/dL [facility] Specimen Plasma specimen Performing Organization Address City/[facility] Phone Number [facility] DEPARTMENT OF PATHOLOGY AND [address] [place] [address] Sodium level, urine, random (12/06/2018 6:00 PM CDT) Sodium, urine, random 31 mEq/L [facility] Specimen Urine Performing Organization Address [facility] Phone Number [facility] DEPARTMENT OF PATHOLOGY AND [address] [place] [address] Creatinine level, urine, random (12/06/2018 6:00 PM CDT) Creatinine, urine, 22 mg/dL [facility] Specimen Urine Performing Organization Address [facility] Phone Number [facility] DEPARTMENT OF PATHOLOGY AND [address] [place] [phone] [place] [address] Serum electrophoresis (12/06/2018 5:00 PM CDT) Protein 6.1 (L) 6.3 - 8.3 [facility] Comment: g/dL [facility] 4.6-7.0 g/dL HOSPITAL 1 week 4.4-7.6 g/dL 7 months-1year5.1-7.3 g/dL 1-2 years5.6-7.5 g/dL >3 years6.0-8.0 g/dL 18-150 6.3-8.3 g/dL [facility] albumin 2.53 (L) 4.00 - 5.30 [place] [place] g/dL [facility] SPE alpha 1 0.41 (H) 0.10 - 0.25 [place] g/dL [facility] SPE alpha 2 1.18 (H) 0.58 - 0.84 [place] g/dL [facility] SPE beta 1.08 0.50 - 1.10 [place] g/dL [facility] SPE gamma 0.90 0.60 - 1.30 [place] g/dL [facility] SPE extended See Comment [facility] interpretation Comment: [facility] Total protein and albumin are decreased while the relative concentrations HOSPITAL of alpha-1 globulins and alpha-2 globulins are increased indicating an acute phase response to infection, inflammation or tissue injury. [facility] interpretation See CommentComment: [facility] [place] Pepe Cortez MD; Ebony Jacques, PhD; [facility] MD [place] Specimen Serum Performing Organization Address [facility] Phone Number [facility] DEPARTMENT OF PATHOLOGY AND [address] [place] [address] [address] Direct Liat' (LINDA) (12/06/2018 4:30 AM CDT) [id number] Polyspecific POS [facility] Specimen Blood Performing Organization Address [facility] Phone Number [facility] DEPARTMENT OF PATHOLOGY AND [address] [place], [place] [phone] GENOMIC [address] [address] Positive LINDA reflex (12/06/2018 4:30 AM CDT) IgG Liat, gel POS [facility] Anti-complement NEG [facility] Specimen Performing Organization Address City/[facility] Phone Number [facility] DEPARTMENT OF PATHOLOGY AND [address] [place] [phone] [place] [address] Erythropoietin (12/06/2018 4:30 AM CDT) Erythropoietin 100.2 (H) 2.6 - 18.5 mIU/mL [facility] Specimen Serum Performing Organization Address City/[facility] Phone Number [facility] DEPARTMENT OF PATHOLOGY AND [address] [place] [address] Elution (12/06/2018 4:30 AM CDT) Elution NEG [facility] Comment: HOSPITAL This indicates that the antibody is not directed against any specific red cell antigen and is more likely a consequence of the patient's underlying condition.Verified by [id number]. Specimen Performing Organization Address [facility] Phone Number [facility] DEPARTMENT OF PATHOLOGY AND [address] [place] [address] D-dimer (12/05/2018 12:18 PM CDT) Pathologist [facility] D-dimer 3.16 (H) 0.00 - 0.40 [facility] Comment: ug/mL FEU HOSPITAL Units are ug/ml Fibrinogen Equivalent Unit. When combined with low clinical probability, D-dimer results of less than 0.5 ug/ml FEU have a good negativepredictive value in excluding PE or DVT. For D-dimer results greater than 0.5ug/ml FEU further testing is indicated if PE or DVT is suspectedclinically. Elevated D-dimer results have been reported in DVT, PE, and DIC cases and may indicate the presence of a clot. D-dimer results may be elevated due to old age, , inflammatory diseases, trauma, post-operative states, sepsis, and malignancies. Specimen Blood Performing Organization Address City/[facility]/Zipcode Phone Number [facility] DEPARTMENT OF PATHOLOGY AND [facility] [place] [address] GENOMIC MEDICINE [address] [address] XR Chest External Study (11/30/2018 10:52 AM CDT)Only the most recent of2 resultswithin the time period is included. Specimen Narrative Performed At This exam was not acquired at a [facility] facility and has not been [facility] interpreted by a [facility] Provider.The exam was imported into our imaging system for comparisons purposes. Performing Organization Address [facility]/Zipcode Phone Number [facility] [address] [place] [phone] US Abdominal External Study (11/29/2018 1:06 PM CDT) Specimen Narrative Performed At This exam was not acquired at a [facility] facility and has not been [facility] interpreted by a [facility] Provider.The exam was imported into our imaging system for comparisons purposes. Performing Organization Address [facility] Phone Number [facility] [address] [place] [address] MRI Spine External Study (11/29/2018 1:00 PM CDT) Specimen Narrative Performed At This exam was not acquired at a [facility] facility and has not been [facility] interpreted by a [facility] Provider.The exam was imported into our imaging system for comparisons purposes. Performing Organization Address [facility]/Zipcode Phone Number [facility] [address] [place] [address] CT Chest External Study (11/29/2018 12:05 PM CDT) Specimen Narrative Performed At This exam was not acquired at a [facility] facility and has not been [facility] interpreted by a [facility] Provider.The exam was imported into our imaging system for comparisons purposes. Performing Organization Address City/[facility]/Zipcode Phone Number [facility] [address] [place] [address] [place] Vascular External Study (11/27/2018 8:25 AM CDT) Specimen Narrative Performed At This exam was not acquired at a [facility] facility and has not been [facility] interpreted by a [facility] Provider.The exam was imported into our imaging system for comparisons purposes. Performing Organization Address [facility]/Zipcode Phone Number [facility] [address] [place] [address] [place] External Study (11/27/2018 5:42 AM CDT) Specimen Narrative Performed At This exam was not acquired at a [facility] facility and has not been [facility] interpreted by a [facility] Provider.The exam was imported into our imaging system for comparisons purposes. Performing Organization Address City/[facility]/Zipcode Phone Number [facility] [address] [place] [address] Transfuse RBC (11/06/2018 3:44 PM MORTGAGE PROCESSING CLERK)Only the most recent of7 resultswithin the time period is included.Creatinine level (10/16/2018 1:05 PM MORTGAGE PROCESSING CLERK) Creatinine 1.50 (H) 0.50 - 0.90 mg/dL [facility] Specimen Plasma specimen Performing Organization Address City/State/Zipcode Phone Number [facility] DEPARTMENT OF PATHOLOGY AND [address] [place] [address] GENOMIC MEDICINE [facility] [address] [place] [address] MRI Brain W Wo Contrast (10/12/2018 2:33 PM MORTGAGE PROCESSING CLERK) Specimen Narrative Performed At EXAMINATION: MRI BRAIN W WO CONTRAST [facility] CLINICAL HISTORY: C34.91 Malignant neoplasm of unspecified [...] intracranial abnormality. No evidence of metastatic disease. [id number] Procedure Note Interface, Radiology Results Incoming - 10/12/2018 3:55 PM MORTGAGE PROCESSING CLERK EXAMINATION: MRI BRAIN W WO CONTRAST CLINICAL [...] intracranial abnormality. No evidence of metastatic disease. [id number] Performing Organization Address City/State/Zipcode Phone Number [facility] [address] [place] [address] Antibody screen (gel) (09/27/2018 10:10 AM MORTGAGE PROCESSING CLERK) Antibody screen (gel) [facility] Specimen Performing Organization Address City/[facility] Phone Number [facility] DEPARTMENT OF PATHOLOGY AND [address] [place] [address] Antibody identification (09/27/2018 10:10 AM MORTGAGE PROCESSING CLERK) Antibody ID [facility] Specimen Performing Organization Address City/[facility] Phone Number [facility] DEPARTMENT OF PATHOLOGY AND [address] [place] [address] [address] [address] Chest W Contrast Abdomen W Contrast Pelvis W Contrast (07/26/2018 10:04 AM MORTGAGE PROCESSING CLERK)Only the most recent of2 resultswithin the time period is included. Specimen Narrative Performed At EXAMINATION:CT CHEST W CONTRAST ABDOMEN W CONTRAST PELVIS W CONTRAST [facility] CLINICAL HISTORY:C34.91 Malignant neoplasm of unspecified [...] and correlation with any recent intervention advised. [facility]-[id number] Procedure Note [facility], Radiology Results Incoming - 07/26/2018 10:39 AM MORTGAGE PROCESSING CLERK EXAMINATION: CT CHEST W CONTRAST ABDOMEN [...] and correlation with any recent intervention advised. [facility]-[id number] Performing Organization Address City/State/Zipcode Phone Number [address] [address] POC creatinine (07/26/2018 9:14 AM MORTGAGE PROCESSING CLERK) POC creatinine 1.0 (H) 0.5 - 0.9 mg/dl [facility] Comment: HOSPITAL Meter ID: [id number] Landscape Supervisor: Ledy Evans Specimen Blood Performing Organization Address City/[facility]/Zipcode Phone Number [facility] DEPARTMENT OF PATHOLOGY AND [address] [place] [address] GENOMIC MEDICINE [address] [address] IR Port Placement (06/12/2018 12:54 PM CDT) Specimen Narrative Performed At [facility]ED[facility] Subcutaneous right chest port placement Performing Radiologist: [...] and the performing provider. Duration of intraservice [id number] anesthesia/sedation: N/A Access: Local anesthesia was administered. The right internal jugular vein was evaluated with preprocedure ultrasound and noted to be patent. Real-time ultrasound was used to visualize needle entry into the vessel and a permanent image was stored. A 0.035 inch J-wire was advanced into the inferior vena cava and an image was archived. Access technique: 5 [place] micropuncture set Venography: Vein catheterized: N/A Indication [...] position of the catheter tip. Port placed: Angiofreshbag Smart Port Catheter size: 8 [place] Catheter flush: Heparin (100 units/mL) Closure: The [...] Estimated blood loss: Less than 10 cc [facility]-[id number] Procedure Note [facility], Radiology Results Incoming - 06/12/2018 5:31 [...] and the performing provider. Duration of intraservice [id number] anesthesia/sedation: N/A Access: Local anesthesia was administered. The right internal jugular vein was evaluated with preprocedure ultrasound and noted to be patent. Real-time ultrasound was used to visualize needle entry into the vessel and a permanent image was stored. A 0.035 inch J-wire was advanced into the inferior vena cava and an image was archived. Access technique: 5 [place] micropuncture set Venography: Vein catheterized: N/A Indication [...] position of the catheter tip. Port placed: Angiofreshbag Smart Port Catheter size: 8 [place] Catheter flush: Heparin (100 units/mL) Closure: The [...] Estimated blood loss: Less than 10 cc [facility]-[id number] Performing Organization Address [facility] Phone Number [facility] [address] [place] [address] [place] < 1 Hour (06/09/2018 8:35 AM CDT) Specimen Narrative Performed At IMPRESSION: C-arm fluoroscopy under [...] TECH: Fareed Ng [id number] Performing Organization Address [facility] Phone Number [facility] [address] [place] [address] after 05/27/2018 Insurance Payer Benefit Plan / Subscriber ID Effective Dates Phone Address Type Group MEDICARE MEDICARE PART A xxxxxxxxxxx 2013-Present [place], [place] Medicare [place] B ([place]) [place] [address] Advance Directives For more information, please contact: [phone] Type Date Recorded 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 Advance Directives, 06/26/2018 9:38 AM Living Will and Medical Power of Extrusion Bender Advance Directives, 02/22/2019 8:49 AM ADV 12-28-2018 Living Will and Medical Power of Extrusion Bender Advance Directives, 02/22/2019 8:49 AM POA 12-28-2018 Living Will and Medical Power of Extrusion Bender Advance Directives, 02/27/2019 9:03 AM ADV 12-28-2018 Living Will and Medical Power of Extrusion Bender Advance Directives, 02/27/2019 9:03 AM POA 12-28-2018 Living Will and Medical Power of Extrusion Bender Code Status Date Activated Date Inactivated Comments DNR 02/15/2019 7:20 PM 02/23/2019 9:20 PM Does patient have decision-making capacity? Yes Is the patient's imminent? No Code Status decision reached by: Patient by means of Written Directive DNR 02/07/2019 5:50 PM 02/15/2019 7:13 PM Does patient have decision-making capacity? Yes Is the patient's imminent? No Code Status decision reached by: Patient by means of Written Directive
[2019-05-28 16:11] LABS: Urine Blood NEGATIVE (NEG); Urine Glucose NEGATIVE (NEG); Urine Protein 1+ (NEG); Urine Specific Gravity 1.015 (1.005-1.030); Urine pH 5.5 (5.0-7.0)
--- NOTE | 2019-05-28 16:27 | RAD REPORT ---
EXAM DESCRIPTION: CT - Thorax Wo Con - 05/28/2019 4:07 pm CLINICAL HISTORY: cough COMPARISON: November 2018 TECHNIQUE: Computed axial tomography of the chest was obtained. Contrast was not requested. All CT scans are performed using dose optimization technique as appropriate and may include automated exposure control or mA/KV adjustment according to patient size. FINDINGS: The evaluation of mediastinum, debbi and vessels is limited secondary to lack of IV contras t administration. A right lobectomy. Right reticular lung opacities have resolved. Small left upper lobe opacity unchan ged likely benign. No mediastinal or hilar lymphadenopathy is seen. A pleural effusion is not present. A small to moderate pericardial effusion IMPRESSION: A small to moderate pericardial effusion
[2019-05-28] MEDS ORDERED: FENTANYL CITR 100 MCG/2 ML ONE ×4 (16:39→21:42)
[2019-05-28 16:57] LABS: Absolute Lymphocytes (CBC) 1.6 K/uL (0.7-4.9); Basophils % 0.2 % (0-1.3); Lymphocytes % 25.9 % (15.3-44.8); RBC Red Blood Cell Count 2.92 M/uL (3.86-4.86)
[2019-05-28 17:02] LABS: Protime INR 0.99
[2019-05-28 17:35] LABS: ALT/SGPT 20 U/L (12-78); AST/SGOT 11 U/L (15-37); Albumin 3.6 g/dL (3.4-5.0); Alkaline Phosphatase 74 U/L (45-117); BUN Blood Urea Nitrogen 38 mg/dL (7-18); Bicarbonate 26 mmol/L (21-32); Bilirubin Direct < 0.1 mg/dL (0-0.2); Bilirubin Total 0.2 mg/dL (0.2-1.0); Glucose Level 92 mg/dL (74-106); Magnesium 2.2 mg/dL (1.8-2.4); NT PRO-BNP 257 pg/mL (<125); Protein, Total 7.6 g/dL (6.4-8.2); Sodium Level 142 mmol/L (136-145); Troponin (Emerg Dept Use Only) < 0.02 ng/mL (0.0-0.045)
--- NOTE | 2019-05-28 17:37 | RAD REPORT ---
EXAM DESCRIPTION: Ermelinda Single View05/28/2019 4:43 pm CLINICAL HISTORY: Chest pain COMPARISON: March 2019 FINDINGS: The lungs appear clear of acute infiltrate. Mild enlargement of the cardiac silhouette. C entral venous catheter remains in place Old rib fractures
[2019-05-28] MEDS ORDERED: LORazepam 2 MG/ML VIAL ONE ×2 (18:41→21:41)
--- NOTE | 2019-05-28 18:55 | ER ---
Nurse's Notes [facility] Name: Anisha Lindsay Age: 53 yrs Sex: Female : 1965 Arrival Date: 05/28/2019 Time: 15:17 Bed 18 Private MD: Diagnosis: Pericardial effusion (noninflammatory) Presentation: 05/28 15:22 Presenting complaint: Patient states: SHORTNESS OF BREATH, COUGH AND FATIGUE x1 WEEK. bp Transition of care: patient was not received from another setting of care. Onset of symptoms is unknown. Risk Assessment: Do you want to hurt yourself or someone else? Patient reports no desire to harm self or others. Initial Sepsis Screen: Does the patient meet any 2 criteria? No. Patient's initial sepsis screen is negative. Does the patient have a suspected source of infection? No. Patient's initial sepsis screen is negative. Care prior to arrival: None. 15:22 Method Of Arrival: Ambulatory bp 15:22 Acuity: HCEN 2 bp Triage Assessment: 19:25 General: Appears in no apparent distress. uncomfortable, Behavior is calm, cooperative, cc3 appropriate for age. Respiratory: Reports shortness of breath cough that is since 1 week Onset: The symptoms/episode began/occurred 1 week, the patient has moderate shortness of breath. 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 - Social history:: Smoking status: Patient/guardian denies using tobacco. - Ebola Screening: : No symptoms or risks identified at this time. Screenin:01 Abuse screen: Denies threats or abuse. Denies injuries from another. Nutritional ch screening: No deficits noted. Tuberculosis screening: No symptoms or risk factors identified. Fall Risk None identified. Assessment: 16:01 Pain: Denies pain. Cardiovascular: Capillary refill < 3 seconds in bilateral fingers ch Rhythm is regular. Respiratory: Airway is patent Trachea midline Respiratory effort is even, labored, Breath sounds are diminished bilaterally. GI: No signs and/or symptoms were reported involving the gastrointestinal system. Derm: Skin is pale. 16:48 Reassessment: Patient appears in no apparent distress at this time. Patient and/or ch family updated on plan of care and expected duration. Pain level reassessed. Patient is alert, oriented x 3, equal unlabored respirations, skin warm/dry/pink. General: Appears. Respiratory:. 18:24 Reassessment: Patient appears in no apparent distress at this time. pt states she feels ch very anxious and nervous. Roque notified. pt medicated per orders. 19:24 Reassessment: Patient appears in no apparent distress at this time. Patient and/or ch family updated on plan of care and expected duration. Pain level reassessed. Patient is alert, oriented x 3, equal unlabored respirations, skin warm/dry/pink. Patient states feeling better. Patient states symptoms have improved. 19:25 Reassessment: Patient appears in no apparent distress at this time. Patient and/or cc3 family updated on plan of care and expected duration. Pain level reassessed. Patient is alert, oriented x 3, equal unlabored respirations, skin warm/dry/pink. Received this female patient from morning shift ALEX Fernandez as a case of pericardial effusion arranging for transfer to [facility]. With IV cannula gauge 22 at the right forearm saline locked, with port-a-cath to her anterior right upper chest saline locked and patient said she has pain pump which is embedded to her right lower abdominal quadrant area. Patient states feeling better. Patient states symptoms have improved. General: Appears in no apparent distress. uncomfortable, Behavior is calm, cooperative, appropriate for age. Pain: Denies pain. Neuro: Level of Consciousness is awake, alert, obeys commands, Oriented to person, place, time, situation, Appropriate for age. Cardiovascular: Heart tones S1 S2 present Capillary refill < 3 seconds in bilateral fingers Patient's skin is warm and dry. Rhythm is regular. Respiratory: Airway is patent Respiratory effort is even, unlabored, Respiratory pattern is regular, symmetrical, Breath sounds are diminished bilaterally. GI: Abdomen is round obese. : No signs and/or symptoms were reported regarding the genitourinary system. EENT: No signs and/or symptoms were reported regarding the EENT system. Derm: Skin is intact, is healthy with good turgor, Skin is pale. Musculoskeletal: Circulation, motion, and sensation intact. Range of motion: intact in all extremities. 20:15 Reassessment: Patient appears in no apparent distress at this time. Patient and/or cc3 family updated on plan of care and expected duration. Pain level reassessed. Patient is alert, oriented x 3, equal unlabored respirations, skin warm/dry/pink. Patient complains of pain when breathing informed CELESTINE Dang, new order was made and carried out. 21:05 Reassessment: Patient appears in no apparent distress at this time. Patient and/or cc3 family updated on plan of care and expected duration. Pain level reassessed. Patient is alert, oriented x 3, equal unlabored respirations, skin warm/dry/pink. Report called and handed over to Chinedu Gastelum. Transfer form signed by the patient herself. ED gate clerk to call EMS for patient transport. Patient states feeling better. Patient states symptoms have improved. 21:40 Reassessment: Patient appears in no apparent distress at this time. Patient and/or cc3 family updated on plan of care and expected duration. Pain level reassessed. Patient is alert, oriented x 3, equal unlabored respirations, skin warm/dry/pink. Patient requested for intravenous Fentanyl and Ativan before she leaves later for her pain, CELESTINE Dang informed and ordered for it. 22:25 Reassessment: Patient appears in no apparent distress at this time. Patient and/or cc3 family updated on plan of care and expected duration. Pain level reassessed. Patient is alert, oriented x 3, equal unlabored respirations, skin warm/dry/pink. ED gate clerk Wang said the EMS should be here in 45 minutes, patient informed. 23:20 Reassessment: Patient appears in no apparent distress at this time. Patient and/or cc3 family updated on plan of care and expected duration. Pain level reassessed. Patient is alert, oriented x 3, equal unlabored respirations, skin warm/dry/pink. [facility] came for ground patient transport. Patient left ER vitally stable by EMS stretcher. No valuables left in the patient's room. Patient states feeling better. Patient states symptoms have improved. Vital Signs: 15:24 BP 160 / 98; Pulse 98; Resp 20; Temp 98.5; Pulse Ox 98% ; bp 16:48 BP 151 / 85; Pulse 99; Resp 22; Pulse Ox 96% on R/A; Pain 8/10; ch 18:00 BP 138 / 84; Pulse 92; Resp 24; Temp 98.5; Pulse Ox 98% on R/A; Pain 8/10; ch 19:30 BP 121 / 79; Pulse 81; Resp 14 S; Temp 98.1(O); Pulse Ox 98% on R/A; Pain 6/10; cc3 20:30 BP 134 / 90; Pulse 93; Resp 18 S; Pulse Ox 97% on R/A; Pain 9/10; cc3 21:30 BP 139 / 86; Pulse 94; Resp 15 S; Pulse Ox 100% on R/A; cc3 22:26 BP 146 / 89; Pulse 96; Resp 16 S; Pulse Ox 99% on R/A; Pain 7/10; cc3 23:10 BP 138 / 87; Pulse 95; Resp 15 S; Pulse Ox 99% on R/A; Pain 7/10; cc3 ED Course: 15:17 Patient arrived in ED. mr 15:23 Triage completed. bp 15:25 Arm band placed on. bp 15:28 Roque Dang PA is PHCP. jr8 15:28 Андрей Velasco MD is Attending Physician. jr8 16:00 Rebecca Hannah, ALEX is Primary Nurse. 16:01 Patient has correct armband on for positive identification. Bed in low position. Call light in reach. Side rails up X2. pvc monitor on. Pulse ox on. NIBP on. Door closed. Noise minimized. Lights dimmed. Warm blanket given. 16:01 No provider procedures requiring assistance completed. 16:07 EKG done, by electronic prepress technician. reviewed by Roque SPRAGUE. sm3 16:09 CT Chest Wo Con In Process Unspecified. EDMS 16:44 XRAY Chest (1 view) In Process Unspecified. EDMS 16:48 Accessed Port-a-Cath. using accessed w/ # 20 Kahn needle, ,sterile technique, per hospital protocol. Clean \T\ dry. Dressing intact. Good blood return. Flushes easily. 18:00 Inserted saline lock: 22 gauge in right forearm, using aseptic technique. 20:09 Tonya Solitario is Primary Nurse. cc3 21:05 Patient transferred, IV remains in place. cc3 Administered Medications: 16:40 Drug: fentaNYL (PF) 50 mcg Route: IVP; Site: Port-a-cath; 18:40 Drug: fentaNYL (PF) 50 mcg Route: IVP; Site: Port-a-cath; 19:20 Follow up: Response: No adverse reaction; Pain is decreased; RASS: Alert and Calm (0) cc3 18:40 Drug: Ativan 0.5 mg Route: IVP; Site: Port-a-cath; 19:20 Follow up: Response: No adverse reaction; Marked relief of symptoms cc3 20:15 Drug: fentaNYL (PF) 50 mcg {Note: RASS 0.} Route: IVP; Site: Port-a-cath; aj1 21:30 Follow up: Response: No adverse reaction; Pain is decreased; RASS: Alert and Calm (0) cc3 23:10 Drug: fentaNYL (PF) 50 mcg {Note: RASS 0.} Route: IVP; Site: Port-a-cath; cc3 23:20 Follow up: Response: No adverse reaction; Pain is decreased; RASS: Alert and Calm (0) cc3 23:15 Drug: Ativan 0.5 mg Route: IVP; Site: Port-a-cath; cc3 23:20 Follow up: Response: No adverse reaction cc3 Outcome: 18:54 ER care complete, transfer ordered by MD. field 21:05 Transferred by ground EMS to [facility], Transfer form completed. cc3 21:05 Condition: stable 21:05 Instructed on the need for transfer, Demonstrated understanding of instructions. 23:22 Patient left the ED. cc3 Signatures: Dispatcher [employer] EDMS Rebecca Hannah RN RN ch Johnson, Angela, RN RN aj1 Rivera, Mary mr RainerRoque ac, Travon Castellanos RN RN bp Montes, Shakira [facility] Tonya Solitario cc3 Corrections: (The following items were deleted from the chart) 22:15 19:25 Cardiovascular: Capillary refill < 3 seconds in bilateral fingers Patient's skin cc3 is warm and dry. Rhythm is regular cc3 22:22 19:25 Reassessment: Patient appears in no apparent distress at this time. Patient cc3 and/or family updated on plan of care and expected duration. Pain level reassessed. Patient is alert, oriented x 3, equal unlabored respirations, skin warm/dry/pink. Received this female patient from morning shift ALEX Fernandez as a case of pericardial effusion arranging for transfer to [facility]. With IV cannula gauge 22 at the right forearm saline locked, with port-a-cath to her anterior right upper chest saline locked and patient said she has pain pump which is embedded to her right lower abdominal quadrant area. cc3 22:27 19:30 BP 121 / 79; Pulse 81bpm; Resp 14bpm; Spontaneous; Pulse Ox 98% RA; aj1 cc3 22:29 20:30 BP 134 / 90; Pulse 93bpm; Resp 18bpm; Spontaneous; Pulse Ox 97% RA; cc3 cc3 22:29 19:30 BP 121 / 79; Pulse 81bpm; Resp 14bpm; Spontaneous; Pulse Ox 98% RA; Temp 98.1F cc3 Oral; cc3 22:56 22:25 Reassessment: Patient appears in no apparent distress at this time. Patient cc3 and/or family updated on plan of care and expected duration. Pain level reassessed. Patient is alert, oriented x 3, equal unlabored respirations, skin warm/dry/pink. cc3
--- NOTE | 2019-05-28 18:56 | EDPHYS ---
Physician Documentation [facility] Name: Anisha Lindsay Age: 53 yrs Sex: Female : 1965 Arrival Date: 05/28/2019 Time: 15:17 Bed 18 Private MD: Андрей Asif HPI: 05/28 15:46 This 53 yrs old Female presents to ER via Ambulatory with complaints of jr8 Breathing Difficulty. 15:46 The patient has shortness of breath at rest, while talking, and the patient has a jr8 history of lung disease. Onset: The symptoms/episode began/occurred 1 week(s) ago. Duration: The symptoms are continuous, and are steadily getting worse. The patient's shortness of breath is aggravated by coughing, light activity, talking, walking. Associated signs and symptoms: Pertinent positives: chest pain, non-productive cough, Pertinent negatives: diaphoresis, fever, vomiting. Severity of symptoms: At their worst the symptoms were moderate in the emergency department the symptoms are unchanged. The patient has experienced similar episodes in the past. Pt reports that for the last week she has had a "crushing" chest pain that radiates all the way around both sides for the last week. Pain is brought on and exacerbated by breathing, activity, or crying. Pt reports history of lung CA and that she is due for a PET scan in one month but after speaking with her oncologist he recommend she come in and have a CT scan performed to assess her current situation, Reports that she has had chest pain with elevated troponin in the past as well.. 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 - Social history:: Smoking status: Patient/guardian denies using tobacco. - Ebola Screening: : No symptoms or risks identified at this time. ROS: 15:46 Constitutional: Negative for fever, chills, and weight loss, ENT: Negative for injury, jr8 pain, and discharge, Neck: Negative for injury, pain, and swelling, Abdomen/GI: Negative for abdominal pain, nausea, vomiting, diarrhea, and constipation, Back: Negative for injury and pain, MS/Extremity: Negative for injury and deformity, Neuro: Negative for headache, weakness, numbness, tingling, and seizure. 15:46 Cardiovascular: Positive for chest pain, with cough, with movement. 15:46 Respiratory: Positive for dyspnea on exertion, pleurisy, shortness of breath. Exam: 15:46 Constitutional: This is a well developed, well nourished patient who is awake, alert, jr8 and in no acute distress. Head/Face: Normocephalic, atraumatic. ENT: Nares patent. No nasal discharge, no septal abnormalities noted. Tympanic membranes are normal and external auditory canals are clear. Oropharynx with no redness, swelling, or masses, exudates, or evidence of obstruction, uvula midline. Mucous membranes moist. Neck: Trachea midline, no thyromegaly or masses palpated, and no cervical lymphadenopathy. Supple, full range of motion without nuchal rigidity, or vertebral point tenderness. No Meningismus. Chest/axilla: Normal chest wall appearance and motion. Nontender with no deformity. No lesions are appreciated. Cardiovascular: Regular rate and rhythm with a normal S1 and S2. No gallops, murmurs, or rubs. Normal PMI, no JVD. No pulse deficits. Respiratory: Lungs have equal breath sounds bilaterally, clear to auscultation and percussion. No rales, rhonchi or wheezes noted. No increased work of breathing, no retractions or nasal flaring. Back: No spinal tenderness. No costovertebral tenderness. Full range of motion. 15:46 Cardiovascular: Heart sounds: normal, normal S1and S2, Edema: is not appreciated, JVD: is not appreciated. 15:46 Respiratory: mild respiratory distress is noted, Respirations: shallow respirations, that is mild, Breath sounds: are clear throughout, Respiratory rate: 20 Vital Signs: 15:24 BP 160 / 98; Pulse 98; Resp 20; Temp 98.5; Pulse Ox 98% ; bp 16:48 BP 151 / 85; Pulse 99; Resp 22; Pulse Ox 96% on R/A; Pain 8/10; ch 18:00 BP 138 / 84; Pulse 92; Resp 24; Temp 98.5; Pulse Ox 98% on R/A; Pain 8/10; ch 19:30 BP 121 / 79; Pulse 81; Resp 14 S; Temp 98.1(O); Pulse Ox 98% on R/A; Pain 6/10; cc3 20:30 BP 134 / 90; Pulse 93; Resp 18 S; Pulse Ox 97% on R/A; Pain 9/10; cc3 21:30 BP 139 / 86; Pulse 94; Resp 15 S; Pulse Ox 100% on R/A; cc3 22:26 BP 146 / 89; Pulse 96; Resp 16 S; Pulse Ox 99% on R/A; Pain 7/10; cc3 23:10 BP 138 / 87; Pulse 95; Resp 15 S; Pulse Ox 99% on R/A; Pain 7/10; cc3 MDM: 15:28 Patient medically screened. [facility] 17:53 Data reviewed: vital signs, nurses notes, lab test result(s), EKG, radiologic studies, [facility] CT scan, plain films. Data interpreted: Pulse oximetry: on room air is 96 %. Interpretation: normal. Counseling: I had a detailed discussion with the patient and/or guardian regarding: the historical points, exam findings, and any diagnostic results supporting the discharge/admit diagnosis, lab results, radiology results, the need to transfer to another facility, [facility] does not immediately have the required specialist. ED course: Discussed with patient that she has enlargement of pericardial effusion that needs to be further evaluated. Something that we are unable to take care of at this time at this facility. Will have to transfer back to [facility] for further evaluation and continuity of care . 18:53 ED course: [facility] called for continuity and accepted patient . [facility] 05/28 15:44 Order name: Urine Dipstick--Ancillary (enter results); Complete Time: 16:22 05/28 15:46 Order name: Basic Metabolic Panel; Complete Time: 17:37 [facility] 05/28 15:46 Order name: CBC with Diff; Complete Time: 17:32 [facility] 05/28 15:46 Order name: LFT's; Complete Time: 17:37 05/28 15:46 Order name: Magnesium; Complete Time: 17:38 05/28 15:46 Order name: NT PRO-BNP; Complete Time: 17:38 05/28 15:46 Order name: PT-INR; Complete Time: 17:32 05/28 15:46 Order name: Troponin (emerg Dept Use Only); Complete Time: 17:37 05/28 15:46 Order name: XRAY Chest (1 view); Complete Time: 17:52 05/28 15:46 Order name: CT Chest Wo Con; Complete Time: 16:32 05/28 15:46 Order name: EKG; Complete Time: 15:48 05/28 15:46 Order name: Cardiac monitoring; Complete Time: 18:58 05/28 15:46 Order name: EKG - Nurse/Tech; Complete Time: 16:51 05/28 15:46 Order name: IV Saline Lock; Complete Time: 16:51 05/28 15:46 Order name: Labs collected and sent; Complete Time: 16:51 05/28 15:46 Order name: O2 Per Protocol; Complete Time: 16:51 05/28 15:46 Order name: O2 Sat Monitoring; Complete Time: 16:51 8 EC:56 Rate is 89 beats/min. Rhythm is regular. QRS Mcgrath is Normal. ND interval is normal at jr8 164 msec. QRS interval is normal at 88 msec. QT interval is normal at 360 msec. No Q waves. T waves are Normal. No ST changes noted. Clinical impression: Normal ECG. Interpreted by me. Reviewed by me. Administered Medications: 16:40 Drug: fentaNYL (PF) 50 mcg Route: IVP; Site: Port-a-cath; 18:40 Drug: fentaNYL (PF) 50 mcg Route: IVP; Site: Port-a-cath; 19:20 Follow up: Response: No adverse reaction; Pain is decreased; RASS: Alert and Calm (0) cc3 18:40 Drug: Ativan 0.5 mg Route: IVP; Site: Port-a-cath; ch 19:20 Follow up: Response: No adverse reaction; Marked relief of symptoms cc3 20:15 Drug: fentaNYL (PF) 50 mcg {Note: RASS 0.} Route: IVP; Site: Port-a-cath; aj1 21:30 Follow up: Response: No adverse reaction; Pain is decreased; RASS: Alert and Calm (0) cc3 23:10 Drug: fentaNYL (PF) 50 mcg {Note: RASS 0.} Route: IVP; Site: Port-a-cath; cc3 23:20 Follow up: Response: No adverse reaction; Pain is decreased; RASS: Alert and Calm (0) cc3 23:15 Drug: Ativan 0.5 mg Route: IVP; Site: Port-a-cath; cc3 23:20 Follow up: Response: No adverse reaction cc3 Disposition: 05/29 08:33 Co-signature as Attending Physician, Андрей Velasco MD I agree with the assessment and eloy plan of care. Disposition: 05/28/19 18:54 Transfer ordered to [facility]. Diagnosis is Pericardial effusion (noninflammatory). - Reason for transfer: Higher level of care. - Accepting physician is [facility]. - Condition is Stable. - Problem is new. - Symptoms have improved. Signatures: Dispatcher [employer] EDMS Rebecca Hannah, RN RN Antonella Hu RN RN aj1 Андрей Velasco MD MD cha Roszak, Josh, PA PA jr8 Travon Carvajal, ALEX RN Tonya Dominguez cc3 Corrections: (The following items were deleted from the chart) 05/28 23:22 18:54 05/28/2019 18:54 Transfer ordered to [facility]. Diagnosis is cc3 Pericardial effusion (noninflammatory). Reason for transfer: Higher level of care. Accepting physician is [facility]. Condition is Stable. Problem is new. Symptoms have improved. jr8
[2019-05-29 00:57] VITALS: TEMP 98.1
[2019-05-29 01:01] VITALS: BP 146/89; O2SAT 99
--- NOTE | 2019-05-29 08:30 | EKG ---
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
== END 2019-05-28 23:22 | disposition short-term general hospital (02) ==
LOC: ER 15:14
DX: I31.3 Pericardial effusion (noninflammatory) (principal); I10 Essential (primary) hypertension; E03.9 Hypothyroidism, unspecified; I25.2 Old myocardial infarction; I50.9 Heart failure, unspecified; F32.9 Major depressive disorder, single episode, unspecified; C34.90 Malignant neoplasm of unspecified part of unspecified bronchus or lung; Z88.5 Allergy status to narcotic agent; Z88.8 Allergy status to other drugs, medicaments and biological substances; Z91.048 Other nonmedicinal substance allergy status
CPT/HCPCS: 93005; 85025; 80048; 36415; 83735; 85610; 80076; 81003; 84484; 83880; 71250; 71045; J3010 ×4; 96374; 96375; 99285

== ENCOUNTER 2019-06-05 21:41 | Observation (INO) | payer OTHER ==
[2019-06-05] MEDS ORDERED: ONDANSETRON 4 MG/2 ML VIAL ONE ×2 (22:35→23:41)
[2019-06-05] MEDS ORDERED: MORPHINE 4 MG/ML SYR ONE (22:35)
[2019-06-05 22:42] LABS: Absolute Lymphocytes (CBC) 1.5 K/uL (0.7-4.9); Basophils % 0.3 % (0-1.3); Hematocrit 26.9 % (36.0-45.0); Lymphocytes % 28.2 % (15.3-44.8); MPV 8.3 fL (7.6-11.3)
[2019-06-05 22:58] LABS: ALT/SGPT 14 U/L (12-78); AST/SGOT 17 U/L (15-37); Albumin 3.8 g/dL (3.4-5.0); Alkaline Phosphatase 68 U/L (45-117); BUN Blood Urea Nitrogen 44 mg/dL (7-18); Bicarbonate 25 mmol/L (21-32); Bilirubin Direct < 0.1 mg/dL (0-0.2); Bilirubin Total 0.2 mg/dL (0.2-1.0); Glucose Level 87 mg/dL (74-106); Lipase 128 U/L (73-393); NT PRO-BNP 259 pg/mL (<125); Potassium 3.4 mmol/L (3.5-5.1); Protein, Total 7.6 g/dL (6.4-8.2); Sodium Level 139 mmol/L (136-145); Troponin (Emerg Dept Use Only) < 0.02 ng/mL (0.0-0.045)
[2019-06-05 23:13] LABS: Protime INR 0.97
--- NOTE | 2019-06-05 23:21 | ER ---
Nurse's Notes [facility] Name: Anisha Lindsay Age: 53 yrs Sex: Female : 1965 Arrival Date: 06/05/2019 Time: 21:43 Bed 15 Private MD: Diagnosis: Other chest pain;Unspecified kidney failure;Anemia, unspecified Presentation: 06/05 21:50 Presenting complaint: Patient states: Reports chest pain that radiates straight to the ea back that has been going on since May 31. Pt reports she was transferred to the [facility] on the and was diagnosed with a pericardial effusion. Pt was told if pain became severe to come to ED. Transition of care: patient was not received from another setting of care. Onset of symptoms was June 05, 2019. Risk Assessment: Do you want to hurt yourself or someone else? Patient reports no desire to harm self or others. Care prior to arrival: Pt reports she has a fentanyl pump in place, but medication has been un effective. 21:50 Method Of Arrival: Ambulatory ea 21:50 Acuity: CHEN 3 ea 22:13 Initial Sepsis Screen: Does the patient meet any 2 criteria? No. Patient's initial ea sepsis screen is negative. Does the patient have a suspected source of infection? No. Patient's initial sepsis screen is negative. Triage Assessment: 22:13 General: Appears uncomfortable, Behavior is appropriate for age. Pain: Complains of ea pain in anterior aspect of left upper chest Pain radiates to left scapular area. Cardiovascular: Parent/caregiver reports patient has had chest pain. 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 - Social history:: Smoking status: Patient/guardian denies using tobacco. - Ebola Screening: : No symptoms or risks identified at this time. - Family history:: not pertinent. Screenin:09 Abuse screen: Denies threats or abuse. Nutritional screening: No deficits noted. ea Tuberculosis screening: No symptoms or risk factors identified. Fall Risk None identified. Assessment: 22:53 General: Appears in no apparent distress. uncomfortable, Behavior is cooperative, jb4 anxious. Pain: Complains of pain in anterior aspect of left upper chest Pain radiates to back Pain currently is 10 out of 10 on a pain scale. Quality of pain is described as pressure, Pain began gradually. Neuro: Level of Consciousness is awake, alert, obeys commands, Oriented to person, place, time, situation. Cardiovascular: Heart tones S1 S2 present muffled Provider notified. Patient's skin is warm and dry. Respiratory: Airway is patent Respiratory effort is even, unlabored, Respiratory pattern is regular, symmetrical. GI: No deficits noted. No signs and/or symptoms were reported involving the gastrointestinal system. : No deficits noted. No signs and/or symptoms were reported regarding the genitourinary system. EENT: No deficits noted. No signs and/or symptoms were reported regarding the EENT system. Derm: Skin is intact, Skin is pink, warm \T\ dry. Musculoskeletal: Circulation, motion, and sensation intact. Range of motion: intact in all extremities. 06/06 00:00 Reassessment: Patient appears in no apparent distress at this time. No changes from jb4 previously documented assessment. Patient and/or family updated on plan of care and expected duration. Pain level reassessed. Patient is alert, oriented x 3, equal unlabored respirations, skin warm/dry/pink. PT to CT. 00:25 Reassessment: Pt reports worsening pain, Provider notified see [facility] for orders. jb4 01:07 Reassessment: Patient appears in no apparent distress at this time. Patient and/or jb4 family updated on plan of care and expected duration. Pain level reassessed. Patient is alert, oriented x 3, equal unlabored respirations, skin warm/dry/pink. 02:04 Reassessment: Patient appears in no apparent distress at this time. Patient and/or jb4 family updated on plan of care and expected duration. Pain level reassessed. Patient is alert, oriented x 3, equal unlabored respirations, skin warm/dry/pink. Dr. Acosta at the bedside. 03:04 Reassessment: Patient appears in no apparent distress at this time. Patient and/or jb4 family updated on plan of care and expected duration. Pain level reassessed. Patient is alert, oriented x 3, equal unlabored respirations, skin warm/dry/pink. PT transferred upstairs via stretcher. Vital Signs: 06/05 21:50 BP 172 / 97; Pulse 91; Resp 18; Temp 98.2; Pulse Ox 99% on R/A; Weight 104.33 kg; ea Height 5 ft. 2 in. (157.48 cm); Pain 06/14; 23:00 BP 140 / 79; Pulse 91; Resp 20; Pulse Ox 96% on R/A; jb4 06/06 00:30 BP 130 / 73; Pulse 82; Resp 16; Pulse Ox 97% on R/A; jb4 01:00 BP 125 / 69; Pulse 87; Resp 16; Pulse Ox 97% on R/A; jb4 02:04 BP 111 / 66; Pulse 79; Resp 16; Pulse Ox 93% on R/A; jb4 02:30 BP 103 / 76; Pulse 79; Resp 16; Temp 97.4(TE); Pulse Ox 94% on R/A; jb4 06/05 21:50 Body Mass Index 42.07 (104.33 kg, 157.48 cm) ea ED Course: 06/05 21:43 Patient arrived in ED. cl3 21:50 Arm band placed on right wrist. Patient placed in an exam room, on a stretcher, on ea front desk monitor, on pulse oximetry. 21:50 Patient has correct armband on for positive identification. Bed in low position. Call ea light in reach. Side rails up X2. 22:09 Triage completed. ea 22:12 cardiac monitor on. Pulse ox on. NIBP on. ea 22:12 Patient maintains SpO2 saturation greater than 95% on room air. ea 22:20 Gil Mukherjee, RN is Primary Nurse. jb4 22:25 Андрей Velasco MD is Attending Physician. eloy 22:53 XRAY Chest (1 view) In Process Unspecified. EDMS 23:19 Vik Acosta DO is Hospitalizing Provider. [facility] 06/06 00:27 CT Chest Wo Con In Process Unspecified. EDMS 03:06 No provider procedures requiring assistance completed. Patient admitted, IV remains in jb4 place. Administered Medications: 06/05 22:33 Drug: Zofran 4 mg Route: IVP; Site: Port-a-cath; 4 22:51 Follow up: Response: No adverse reaction; Nausea is decreased jb4 22:35 Drug: morphine 4 mg {Note: Rass score 1.} Route: IVP; Site: Port-a-cath; [facility] 22:51 Follow up: Response: No adverse reaction; Pain is decreased; RASS: Alert and Calm (0) [facility] 23:58 Drug: Zofran 4 mg Route: IVP; Site: Port-a-cath; [facility] 06/06 00:15 Follow up: Response: No adverse reaction; Nausea is decreased jb4 00:00 Drug: fentaNYL (PF) 50 mcg {Note: Rass Score 0.} Route: IVP; Site: Port-a-cath; [facility] 00:15 Follow up: Response: No adverse reaction; Pain is decreased; RASS: Alert and Calm (0) jb4 00:35 Drug: Phenergan 12.5 mg Route: IVP; Site: Port-a-cath; jb4 01:00 Follow up: Response: No adverse reaction; Nausea is decreased jb4 00:39 Drug: Dilaudid 1 mg {Note: Rass score 0.} Route: IVP; Site: Port-a-cath; 4 01:00 Follow up: Response: Adverse reaction, Physician notified; Pain is decreased; RASS: [facility] Alert and Calm (0) 02:00 Drug: Ativan 1 mg Route: IVP; Site: Port-a-cath; 4 02:30 Follow up: Response: No adverse reaction; Marked relief of symptoms [facility] 02:01 Drug: HEParin 5000 units Route: Sub-Q; Site: left lower abdomen; jb4 02:30 Follow up: Response: No adverse reaction [facility] Outcome: 06/05 23:20 Decision to Hospitalize by Provider. [facility] 06/06 03:06 Admitted to Med/surg accompanied by nurse, via stretcher, room 224, with chart, Report jb called to ALEX Solano Condition: stable Discharge instructions given to patient, Instructed on the need for admit, Demonstrated understanding of instructions. 03:07 Patient left the ED. jb4 Signatures: Dispatcher [employer] EDАндрей Jessica MD MD cha Bryson, James, RN RN jb4 Xiomara Poon RN RN ea Lewis, Charde cl3 Corrections: (The following items were deleted from the chart) 02:04 06/05 22:53 Pain: Complains of pain in anterior aspect of left upper chest Pain jb4 radiates to back Pain currently is 10 out of 10 on a pain scale. Quality of pain is described as pressure, jb4 06/06 02:04 10 22:53 Cardiovascular: Patient's skin is warm and dry. jb4 jb4 06/06 03:06 02:30 BP 103 / 76; Pulse 79bpm; Resp 16bpm; Pulse Ox 94% RA; jb4 jb4
--- NOTE | 2019-06-05 23:21 | EDPHYS ---
Physician Documentation [facility] Name: Anisha Lindsay Age: 53 yrs Sex: Female : 1965 Arrival Date: 06/05/2019 Time: 21:43 Bed 15 Private MD: ED Physician Андрей Velasco HPI: 06/05 22:26 This 53 yrs old Female presents to ER via Ambulatory with complaints of Chest eloy Pain. 22:26 The patient or guardian reports chest pain that is located primarily in the substernal eloy area. 23:15 Onset: today. The pain radiates to Associated signs and symptoms: The patient has no eloy apparent associated signs or symptoms. The chest pain is described as a pressure. Duration: The patient or guardian reports multiple episodes, that wax and wane. Modifying factors: The symptoms are alleviated by remaining still, the symptoms are aggravated by movement. Severity of pain: At its worst the pain was moderate in the emergency department the pain is unchanged. The patient has not experienced similar symptoms in the past. 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 - Social history:: Smoking status: Patient/guardian denies using tobacco. - Ebola Screening: : No symptoms or risks identified at this time. - Family history:: not pertinent. ROS: 23:15 Constitutional: Negative for fever, chills, and weight loss, Eyes: Negative for injury, eloy pain, redness, and discharge, ENT: Negative for injury, pain, and discharge, Neck: Negative for injury, pain, and swelling, Respiratory: Negative for shortness of breath, cough, wheezing, and pleuritic chest pain, Abdomen/GI: Negative for abdominal pain, nausea, vomiting, diarrhea, and constipation, Back: Negative for injury and pain, : Negative for injury, bleeding, discharge, and swelling, MS/Extremity: Negative for injury and deformity, Skin: Negative for injury, rash, and discoloration, Neuro: Negative for headache, weakness, numbness, tingling, and seizure, Psych: Negative for depression, anxiety, suicide ideation, homicidal ideation, and hallucinations, Allergy/Immunology: Negative for hives, rash, and allergies, Endocrine: Negative for neck swelling, polydipsia, polyuria, polyphagia, and marked weight changes, Hematologic/Lymphatic: Negative for swollen nodes, abnormal bleeding, and unusual bruising. 23:15 Cardiovascular: Positive for chest pain, with movement. Exam: 23:17 Constitutional: This is a well developed, well nourished patient who is awake, alert, eloy and in no acute distress. Head/Face: Normocephalic, atraumatic. Eyes: Pupils equal round and reactive to light, extra-ocular motions intact. Lids and lashes normal. Conjunctiva and sclera are non-icteric and not injected. Cornea within normal limits. Periorbital areas with no swelling, redness, or edema. ENT: Nares patent. No nasal discharge, no septal abnormalities noted. Tympanic membranes are normal and external auditory canals are clear. Oropharynx with no redness, swelling, or masses, exudates, or evidence of obstruction, uvula midline. Mucous membranes moist. Neck: Trachea midline, no thyromegaly or masses palpated, and no cervical lymphadenopathy. Supple, full range of motion without nuchal rigidity, or vertebral point tenderness. No Meningismus. Chest/axilla: Normal chest wall appearance and motion. Nontender with no deformity. No lesions are appreciated. Cardiovascular: Regular rate and rhythm with a normal S1 and S2. No gallops, murmurs, or rubs. Normal PMI, no JVD. No pulse deficits. Respiratory: Lungs have equal breath sounds bilaterally, clear to auscultation and percussion. No rales, rhonchi or wheezes noted. No increased work of breathing, no retractions or nasal flaring. Abdomen/GI: Soft, non-tender, with normal bowel sounds. No distension or tympany. No guarding or rebound. No evidence of tenderness throughout. Back: No spinal tenderness. No costovertebral tenderness. Full range of motion. Skin: Warm, dry with normal turgor. Normal color with no rashes, no lesions, and no evidence of cellulitis. MS/ Extremity: Pulses equal, no cyanosis. Neurovascular intact. Full, normal range of motion. Neuro: Awake and alert, GCS 15, oriented to person, place, time, and situation. Cranial nerves II-XII grossly intact. Motor strength 5/5 in all extremities. Sensory grossly intact. Cerebellar exam normal. Normal gait. Psych: Awake, alert, with orientation to person, place and time. Behavior, mood, and affect are within normal limits. 23:17 Musculoskeletal/extremity: Extremities: DVT Exam: no pain, no swelling, no tenderness, negative Homans' sign noted on exam, no appreciated bluish discoloration, no erythema, no increased warmth. Vital Signs: 21:50 BP 172 / 97; Pulse 91; Resp 18; Temp 98.2; Pulse Ox 99% on R/A; Weight 104.33 kg; ea Height 5 ft. 2 in. (157.48 cm); Pain 10; 23:00 BP 140 / 79; Pulse 91; Resp 20; Pulse Ox 96% on R/A; jb4 06/06 00:30 BP 130 / 73; Pulse 82; Resp 16; Pulse Ox 97% on R/A; jb4 01:00 BP 125 / 69; Pulse 87; Resp 16; Pulse Ox 97% on R/A; jb4 02:04 BP 111 / 66; Pulse 79; Resp 16; Pulse Ox 93% on R/A; jb4 02:30 BP 103 / 76; Pulse 79; Resp 16; Temp 97.4(TE); Pulse Ox 94% on R/A; jb4 06/05 21:50 Body Mass Index 42.07 (104.33 kg, 157.48 cm) ea MDM: 06/05 22:26 Patient medically screened. [facility] 23:18 Data reviewed: vital signs, nurses notes, lab test result(s), EKG, radiologic studies, [facility] CT scan, plain films. 06/05 22:21 Order name: Basic Metabolic Panel; Complete Time: 23:14 [facility] 06/05 22:21 Order name: CBC with Diff; Complete Time: 23:14 jb4 06/05 22:21 Order name: LFT's; Complete Time: 23:14 jb4 06/05 22:21 Order name: Magnesium; Complete Time: 23:14 jb4 06/05 22:21 Order name: NT PRO-BNP; Complete Time: 23:14 jb4 06/05 22:21 Order name: PT-INR; Complete Time: 23:50 jb4 06/05 22:21 Order name: Troponin (emerg Dept Use Only); Complete Time: 23:14 jb4 06/05 22:21 Order name: XRAY Chest (1 view) jb4 06/05 22:26 Order name: Urine Culture [facility] 06/05 22:35 Order name: Lipase; Complete Time: 23:14 EDMS 06/05 23:10 Order name: Urine Dipstick--Ancillary (enter results); Complete Time: 23:50 em1 06/05 23:51 Order name: CT Chest Wo Con [facility] 06/05 22:21 Order name: EKG; Complete Time: 22:22 [facility] 06/05 22:21 Order name: Cardiac monitoring; Complete Time: 22:21 [facility] 06/05 22:21 Order name: EKG - Nurse/Tech; Complete Time: 22:21 [facility] 06/05 22:21 Order name: IV Saline Lock; Complete Time: 22:21 [facility] 06/05 22:21 Order name: Labs collected and sent; Complete Time: 22:31 [facility] 06/05 22:21 Order name: O2 Per Protocol; Complete Time: 22:22 [facility] 06/05 22:21 Order name: O2 Sat Monitoring; Complete Time: 22:22 [facility] 06/05 22:26 Order name: Urine Dipstick-Ancillary (obtain specimen); Complete Time: 23:09 [facility] Administered Medications: 22:33 Drug: Zofran 4 mg Route: IVP; Site: Port-a-cath; jb4 22:51 Follow up: Response: No adverse reaction; Nausea is decreased jb4 22:35 Drug: morphine 4 mg {Note: Rass score 1.} Route: IVP; Site: Port-a-cath; jb4 22:51 Follow up: Response: No adverse reaction; Pain is decreased; RASS: Alert and Calm (0) jb 23:58 Drug: Zofran 4 mg Route: IVP; Site: Port-a-cath; jb4 06/06 00:15 Follow up: Response: No adverse reaction; Nausea is decreased jb4 00:00 Drug: fentaNYL (PF) 50 mcg {Note: Rass Score 0.} Route: IVP; Site: Port-a-cath; jb4 00:15 Follow up: Response: No adverse reaction; Pain is decreased; RASS: Alert and Calm (0) jb4 00:35 Drug: Phenergan 12.5 mg Route: IVP; Site: Port-a-cath; jb4 01:00 Follow up: Response: No adverse reaction; Nausea is decreased jb4 00:39 Drug: Dilaudid 1 mg {Note: Rass score 0.} Route: IVP; Site: Port-a-cath; jb4 01:00 Follow up: Response: Adverse reaction, Physician notified; Pain is decreased; RASS: 4 Alert and Calm (0) 02:00 Drug: Ativan 1 mg Route: IVP; Site: Port-a-cath; jb4 02:30 Follow up: Response: No adverse reaction; Marked relief of symptoms jb4 02:01 Drug: HEParin 5000 units Route: Sub-Q; Site: left lower abdomen; jb4 02:30 Follow up: Response: No adverse reaction [facility] Disposition: 06/05/19 23:20 Hospitalization ordered by Vik Acosta for Observation. Preliminary diagnosis are Other chest pain, Unspecified kidney failure, Anemia, unspecified. - Bed requested for Telemetry/MedSurg (observation). - Status is Observation. jb4 - Condition is Stable. - Problem is new. - Symptoms have improved. UTI on Admission? No Signatures: Dispatcher [employer] EDDC Dilma Godinez RN Андрей Garcia MD MD cha Bryson, James RN Xiomara Samaniego RN ALEX queen Corrections: (The following items were deleted from the chart) 06/05 22:35 22:27 LIPASE+[id number].LAB.BRZ ordered. [facility] EDDC 23:27 23:20 Hospitalization Ordered by Vik Acosta DO for Observation. Preliminary eloy diagnosis is Other chest pain; Unspecified kidney failure. Bed requested for Telemetry/MedSurg (observation). Status is Observation. Condition is Stable. Problem is new. Symptoms have improved. UTI on Admission? No. [facility] 06/06 02:16 06/05 23:27 06/05/2019 23:20 Hospitalization Ordered by Vik Acosta DO for Observation. Preliminary diagnosis is Other chest pain; Unspecified kidney failure; Anemia, unspecified. Bed requested for Telemetry/MedSurg (observation). Status is Observation. Condition is Stable. Problem is new. Symptoms have improved. UTI on Admission? No. [facility] 06/06 03:07 02:16 06/05/2019 23:20 Hospitalization Ordered by Vik Acosta DO for Observation. jb4 Preliminary diagnosis is Other chest pain; Unspecified kidney failure; Anemia, unspecified. Bed requested for Telemetry/MedSurg (observation). Status is Observation. Condition is Stable. Problem is new. Symptoms have improved. UTI on Admission? No.
[2019-06-05 23:24] LABS: Urine Blood TRACE (NEG); Urine Glucose NEGATIVE (NEG); Urine Protein NEGATIVE (NEG)
[2019-06-05] MEDS ORDERED: FENTANYL CITR 100 MCG/2 ML ONE (23:41)
[2019-06-06] MEDS ORDERED: HYDROMORPHONE HCL 1 MG/ML INJ ONE (00:45)
[2019-06-06] MEDS ORDERED: PROMETHAZINE 25 MG/ML VIAL ONE (00:45)
[2019-06-06] MEDS ORDERED: LORazepam 2 MG/ML VIAL ONE (01:43)
[2019-06-06] MEDS ORDERED: HEPARIN 5000 UNIT/ML 1 ML VIAL ONE (01:43)
--- NOTE | 2019-06-06 02:20 | P.HP ---
Certification for Inpatient Patient admitted to: Observation With expected LOS: <2 Midnights Patient will require the following post-hospital care: None Practitioner: I am a practitioner with admitting privileges, knowledge of patient current condition, hospital course, and medical plan of care. Services: Services provided to patient in accordance with Admission requirements found in Title 42 Section 412.3 of the Code of Federal Regulations Patient History Date of Service: 06/06/19 Primary Care Provider: Dr. Wolfe; Cardiology/Oncology-[facility] Reason for admission: Chest pain History of Present Illness: 53-year-old female presented to the emergency room with chest pain. Patient with multiple medical problems including hypertension, chronic renal disease stage IV, stage IV lung cancer, rheumatoid arthritis, chronic pain with pain pump, hypertension, hyperlipidemia, chronic pericardial effusion. Patient was actually seen about 2 weeks ago. She had a CT scan done at that time showing a small pericardial fusion. She was transferred to [facility] to further evaluate. No intervention was required. Patient was discharged home to monitor. In March of this year she was hospitalized at this facility had a cardiac stress test which was unremarkable. Echo also unremarkable. This afternoon she start to have chest pain to the substernal region. It radiated to the back. She rated the pain about a 8/10. Some shortness of breath was noted. She came to the ER for further evaluation. She denied any fever, chills, nausea or vomiting. In the ER patient evaluated. Blood pressure is elevated. White count 5.4, hemoglobin 9.5. Platelet count 170. Sodium 139, potassium 3.4, BUN of 44, creatinine 2.6 with a GFR of 18. Troponin unremarkable. BNP 249. Lipase negative. CT scan without contrast shows no significant change from prior CT scan. Patient was admitted for further evaluation and treatment. When I saw the patient in the ER, she appeared stable. Patient has chronic pain in requested pain medication. Patient has a fentanyl pain pump in place. Patient does not appear septic. Patient appears stable at this time. Chest pain improved. Allergies celecoxib [From Celebrex] Allergy (Verified 07/02/16 02:13) unknown meperidine [From Demerol] Allergy (Verified 07/02/16 02:13) unknown Home medications list reviewed: Yes Home Medications: Folic Acid 1 tab PO DAILY 01/28/19 Metoprolol Succinate [Toprol Xl*] 50 mg PO BID #60 tab 01/28/19 Pantoprazole [Protonix Tab*] 1 tab PO BID 01/28/19 Sertraline [Zoloft*] 3 tab PO DAILY 01/28/19 Temazepam 30 mg PO BEDTIME 01/28/19 Trazodone HCl [Desyrel] 100 mg PO BEDTIME 01/28/19 Ascorbic Acid [Vitamin C] 500 mg PO BID 03/17/19 Cholecalciferol (Vitamin D3) [Vitamin D3] 4,000 mg PO DAILY 03/17/19 Colestipol HCl [Colestid] 1 gm PO DAILY PRN 03/17/19 Fentanyl Citrate-0.9 % NaCl/Pf [Fentanyl 1,000 Mcg/100 ml-Ns] 75 mcg SQ DAILY Gabapentin 600 mg PO BID 03/17/19 Levothyroxine [Synthroid*] 50 mcg PO DAILY 03/17/19 Zinc Sulfate [Zinc Sulfate*] 220 mg PO DAILY 03/17/19 Aspirin Tab [Kal Aspirin*] 325 mg PO DAILY tab 03/20/19 Atorvastatin Calcium [Lipitor] 80 mg PO BEDTIME #30 tab 03/20/19 Ranolazine [Ranolazine ER] 500 mg PO BID #30 tab.er.12h 03/20/19 - Past Medical/Surgical History Diabetic: No -: Rheumatoid arthritis -: GERD -: HTN -: Stage IV lung cancer -: CAD -: Chronic pericardial effusion -: Hypothyroidism -: Depression with anxiety -: Barretts esophagus -: Chronic pain with pain pump -: Hysterectomy -: Total L knee replacement -: lap mehul, lap appy -: pain pump R abdomen -: L lobe thyroidectomy -: R lobectomy -: tonsillectomy -: 3 corneal transplants Psychosocial/ Personal History: Patient lives at home - Family History Father -: Heart disease Mother -: Cancer Notes: : breast and throat ca Brother -: Cancer Notes: 2 brothers from ca lung ca, colon ca Sister -: Cancer Notes: lung ca - Social History Smoking Status: Former smoker Alcohol use: No CD- Drugs: No Caffeine use: Yes Place of Residence: Home Review of Systems General: As per HPI Eyes: Unremarkable ENT: Unremarkable Respiratory: Shortness of Breath Cardiovascular: Chest Pain Gastrointestinal: Unremarkable Genitourinary: Unremarkable Musculoskeletal: Back Pain, As per HPI Integumentary: Unremarkable Neurological: Unremarkable Lymphatics: Unremarkable Physical Examination - Physical Exam General: Alert, In no apparent distress, Oriented x3, Cooperative HEENT: Atraumatic, Normocephalic, PERRLA, Mucous membr. moist/pink Neck: Supple, No Thyromegaly Respiratory: Clear to auscultation bilaterally, Normal air movement Cardiovascular: Normal pulses, Regular rate/rhythm Gastrointestinal: Normal bowel sounds, Soft and benign, Non-distended, No tenderness, No masses, No rebound, No guarding Musculoskeletal: No erythema, No tenderness, No warmth Integumentary: No tenderness/swelling, No erythema, No warmth, No cyanosis Neurological: Normal speech, Normal strength at 5/5 x4 extr, Normal tone, Normal affect - Studies Laboratory Data (last 24 hrs) 06/05/19 22:26: Lipase Cancelled 06/05/19 22:20: PT 11.5, INR 0.97 06/05/19 22:20: WBC 5.4, Hgb 9.5 L, Hct 26.9 L, Plt Count 170 06/05/19 22:20: Sodium 139, Potassium 3.4 L, BUN 44 H, Creatinine 2.68 H, Glucose 87, Magnesium 2.0, Total Bilirubin 0.2, AST 17, ALT 14, Alkaline Phosphatase 68, Lipase 128 Assessment and Plan - Plan Impression: Chest pain with chronic pericardial effusion Hypertension Hypothyroidism Rheumatoid arthritis Chronic pain with pain pump Depression with anxiety GERD Hyperlipidemia Lung cancer stage IV Chronic renal disease stage IV Plan: Chest pain with chronic pericardial effusion: Patient will be admitted for further evaluation and observation. CT scan showed no significant change from prior CT scan. Patient recently hospitalized for pericardial effusion. No intervention was required at [facility]. Will continue to monitor cardiac enzymes and telemetry. Will obtain V/Q scan and echocardiogram to further evaluate. Will consult cardiology to further assess. Will provide DVT prophylaxis-heparin at this time. Daytime hospitalist will continue her care. Anticipate discharge today if workup unremarkable and cleared by cardiology. Hypertension: Continue home medication metoprolol XR 50 mg 1 pill twice daily. Will monitor and adjust appropriately. Hypothyroidism: Will continue home medication levothyroxine 50 mcg daily. Rheumatoid arthritis: Continue with folic acid. Continue with home medication. Chronic pain with pain pump: Fentanyl pain pump in place. Will provide breakthrough pain medication-Sunflower as needed. Will continue with her gabapentin. Depression with anxiety: Restart home medication of sertraline and temazepam. GERD: Continue with Protonix 40 mg daily. Hyperlipidemia: Continue with Lipitor 80 mg daily. Lung cancer stage IV colon: Patient is seen by oncology as an outpatient. She reports that this is in remission. Chronic renal disease stage IV: Will monitor renal function closely. Recommend nephrology consultation as an outpatient. Discharge Plan: Home Plan to discharge in: 24 Hours - Advance Directives Does patient have a Living Will: No Does patient have a Durable POA for Healthcare: Yes - Code Status/Comfort Care Code Status Assessed: Yes (Patient is full code) Time Spent Managing Pts Care (In Minutes): 55
[2019-06-06] MEDS ORDERED: ACETAMINOPHEN 500 MG TAB PO PRN (02:43)
[2019-06-06] MEDS ORDERED: TEMAZEPAM 15 MG CAP PO PRN (02:43)
[2019-06-06] MEDS ORDERED: ONDANSETRON 4 MG/2 ML VIAL IV PRN (02:43)
[2019-06-06 03:52] VITALS: BMI 41.2
[2019-06-06] MEDS: HYDROCODONE/APAP 7.5/325 MG TAB PO PRN ×3 (04:07→17:12)
[2019-06-06] MEDS: METOPROLOL XL 50 MG TAB PO SCH ×2 (05:52→17:13)
[2019-06-06 05:56] VITALS: O2SAT 98
[2019-06-06 06:02] LABS: Creatine Phosphokinase 132 U/L (26-192); Troponin I < 0.02 ng/mL (0.0-0.045)
[2019-06-06] MEDS ORDERED: PANTOPRAZOLE 40MG TABLET PO SCH (06:30)
[2019-06-06] MEDS ORDERED: LEVOTHYROXINE SOD 0.05 MG TABLET PO SCH (06:30)
[2019-06-06 07:07] LABS: Urine Appearance CLEAR; Urine Bilirubin NEGATIVE (NEG); Urine Blood NEGATIVE (NEG); Urine Color YELLOW; Urine Glucose NEGATIVE (NEG); Urine Protein NEGATIVE (NEG); Urine Specific Gravity 1.015 (1.005-1.030); Urine Urobilinogen 0.2 mg/dL (0.2-1.0); Urine pH 5.5 (5.0-7.0)
[2019-06-06 07:20] LABS: Urine Microscopic Reflex NO UMIC
--- NOTE | 2019-06-06 08:27 | RAD REPORT ---
EXAM DESCRIPTION: Ermelinda Single View06/05/2019 10:55 pm CLINICAL HISTORY: Chest pain COMPARISON: May 2019 FINDINGS: The lungs appear clear of acute infiltrate. The heart is normal size. Central venous cath eter remains in place IMPRESSION: No acute abnormalities displayed
[2019-06-06] MEDS ORDERED: SERTRALINE HCL 100 MG TAB PO SCH (09:00)
[2019-06-06] MEDS: GABAPENTIN 400 MG CAP PO SCH ×2 (09:00→14:00)
[2019-06-06] MEDS ORDERED: POTASSIUM CL SA 10 MEQ TAB PO ONE (09:00)
[2019-06-06] MEDS ORDERED: ASPIRIN EC 81 MG TAB PO SCH (09:00)
[2019-06-06] MEDS ORDERED: FOLIC ACID 1 MG TABLET PO SCH (09:00)
--- NOTE | 2019-06-06 09:14 | RAD REPORT ---
EXAM DESCRIPTION: NM - Vent Perfusion VQ Scan - 06/06/2019 7:04 am CLINICAL HISTORY: Shortness of breath COMPARISON: June 05, 20182018 chest x-ray TECHNIQUE: 20.5 Mci [id number] was administered by inhalation. First breath, equilibrium, and washout images of the lungs obtained 7.6 Millicuries Technetium-99 MAA was administered intravenously. Anterior, posterior, lateral and ob lique views of the lungs were taken. FINDINGS: The lungs demonstrate relatively homogeneous radiotracer activity on ventilation and perfu mary sequences. No mismatched segmental or lobar perfusion defects are seen. IMPRESSION: No evidence of a pulmonary embolus
--- NOTE | 2019-06-06 09:39 | ECHO ---
HEIGHT: 5 ft 2 in WEIGHT: 225 lb 8 oz DATE OF STUDY: 06/06/[address]: Vik Acosta DO 2-DIMENSIONAL: YES M.MODE: YES DOPPLER: YES COLOR FLOW: YES TDS: NO PORTABLE: NO DEFINITY: NO BUBBLE STUDY: NO DIAGNOSIS: FOLLOW UP CHRONIC PERICARDIAL EFFUSION CARDIAC HISTORY: CATHERIZATION: SURGERY: PROSTHETIC VALVE: PACEMAKER: MEASUREMENTS (cm) DIASTOLIC (NORMALS) SYSTOLIC (NORMALS) IVSd 1.1 (0.6-1.2) LA Diam 4.1 (1.9-4.0) LVEF 70% LVIDd 4.7 (3.5-5.7) LVIDs 2.9 (2.0-3.5) %FS 40% LVPWd 1.4 (0.6-1.2) Ao Diam 2.5 (2.0-3.7) 2 DIMENSIONAL ASSESSMENT: RIGHT ATRIUM: NORMAL LEFT ATRIUM: NORMAL RIGHT VENTRICLE: NORMAL LEFT VENTRICLE: NORMAL TRICUSPID VALVE: NORMAL MITRAL VALVE: NORMAL PULMONIC VALVE: NORMAL AORTIC VALVE: NORMAL PERICARDIAL EFFUSION: SMALL AORTIC ROOT: NORMAL LEFT VENTRICULAR WALL MOTION: NORMAL. DOPPLER/COLOR FLOW: MILD TRICUSPID REGURGITATION. MILD PULMONARY HYPERTENSION ESTIMATED RIGHT VENTRICULAR SYSTOLIC PRESSURE 40mmHg. COMMENTS: NORMAL LEFT VENTRICULAR EJECTION FRACTION. SMALL PERICARDIAL EFFUSION. MILD TRICUSPID REGURGITATION. MILD PULMONARY HYPERTENSION. TECHNOLOGIST: THIERRY MARTINEZ
[2019-06-06] MEDS: HEPARIN 5000 UNIT/ML 1 ML VIAL SQ SCH ×2 (09:49→16:56)
[2019-06-06] MEDS ORDERED: METHYLPREDNISOLONE 125 MG INJ IV SCH (10:00)
--- NOTE | 2019-06-06 10:07 | RAD REPORT ---
EXAM DESCRIPTION: CT - Thorax Wo Con - 06/06/2019 3:13 am CLINICAL HISTORY: Chest pain. COMPARISON: CTA chest 05/28/2019. TECHNIQUE: Axial CT imaging of the chest performed. Reformatted coronal and sagittal images obtained . This exam was performed according to our departmental dose-optimization program which includes automa evelin exposure control, adjustment of the mA and/or kV according to patient size and/or use of iterativ e reconstruction technique FINDINGS: HEART/VESSELS: The heart is normal in size. There is a mild diffuse pericardial effusion up to 1.2 cm in depth. This has no significant change. There is normal caliber of the thoracic aorta. Normal caliber main pulmonary artery. MEDIASTINUM AND UMA: Nonenlarged mediastinal lymph nodes. Normal airways. Normal esophagus. LUNGS/PLEURA: There is an irregular 1.4 cm stable nodular opacity in the peripheral left upper lobe. There is a 1.4 cm cyst in the anterior right lower lobe superior segment abutting the major fissure. There is a 3 mm calcified nodule peripheral right lower lobe axial image 19 of 56. Minimal right low er lobe atelectasis. No consolidation or edema. No pleural fluid. Evidence of right middle lobectomy. Surgical sutures in the right upper lobe also noted. CHEST WALL/SOFT TISSUES: There is evidence of prior left hemithyroidectomy with isthmusectomy. Right internal jugular Mediport terminates in the inferior aspect of the superior vena cava. No axillary a denopathy. Intact sternum. Moderate generalized thoracic spondylosis. There is an old fracture supervisor parking lot ior lateral right rib five. UPPER ABDOMEN: The imaged liver, spleen, pancreas appears normal. Post cholecystectomy. IMPRESSION: 1. Stable mild diffuse pericardial effusion. 2. Stable persistent irregular peripheral left upper lobe pleural-based 1.4 cm nodule. Continued foll ow-up is warranted. 3. Stable postsurgical right middle lobectomy and right upper lobe changes. Electronically signed by: Jaqui Joshua DO 06/06/2019 12:56 AM CDT Due to temporary technical issues with the PACS/Fluency reporting system, reports are being signed by the in house radiologist as a courtesy to ensure prompt reporting. The interpreting radiologist is f ully responsible for the content of the report.
--- NOTE | 2019-06-06 11:38 | EKG ---
Test Date: 2019-06-05 Test Time: 21:53:50 Blood Coordinator: MURIEL MEASUREMENT RESULTS: Intervals: Rate: 92 AK: 168 QRSD: 86 QT: 356 QTc: 440 [place]: P: 39 AK: 168 QRS: 63 T: 42 INTERPRETIVE STATEMENTS: Normal sinus rhythm Normal ECG Compared to ECG 05/28/2019 15:56:27 No significant changes Electronically Signed On 06-06-19 11:37:43 CDT by Tim Tsang
[2019-06-06] MEDS ORDERED: IPRATROPIUM BROM 0.5MG/2.5ML NEB PRN (12:10)
[2019-06-06] MEDS ORDERED: ALBUTEROL 2.5 MG/3 ML NEB SOL NEB PRN (12:10)
[2019-06-06 14:11] LABS: CKMB Creatine Kinase MB 1.3 ng/mL (0.3-3.6); Creatine Phosphokinase 95 U/L (26-192); Troponin I < 0.02 ng/mL (0.0-0.045)
--- NOTE | 2019-06-06 14:33 | CON ---
Identification: 53-year-old woman. Additional Attending Physician: Dr. Santana. Chief Complaint: Pain in the chest. Reason For Consult: Pericardial effusion. History Of Present Illness: Ms. Lindsay is known to have a chronic pericardial effusion. She has had l ian cancer, had resection, and she had metastases in opposite lung, has received radiation therapy. She also has underlying rheumatoid arthritis and is not under one of the biological agents that usual ly is used to manage rheumatoid arthritis. She was at [facility] last week. She was told aggie patterson had pericarditis from rheumatoid arthritis that is the diagnosis. Again today, as an outpatient aggie patterson takes trazodone, sertraline, temazepam, levothyroxine, gabapentin, Zofran, morphine, ipratropium, h ydrocodone, benzonatate, polyethylene glycol, metoprolol. She told me she was also taking a small do se of prednisone and she has a fentanyl pump that may or may not be working right now. We do not elza lly have a handle on whether it is working. The patient thinks it is not relieving any other pain. Allergies: SHE IS ALLERGIC TO CELECOXIB AND MEPERIDINE. Social History: She does not use tobacco now. Physical Examination: 5 feet 2 inch, 225 pounds. Obese, alert, oriented, pleasant. She is in distress from pain. When aggie patterson takes a deep breath, it hurts. When she lies back, it hurts. When she sits up, it feels slightly better, but while she is trying to sit up, it hurts. This has been going on for several months, alth ough a week ago, it was worse and today it is worse than usual. An echocardiogram done today shows a very small pericardial effusion. No fibrinous exudate. No incr ease in size since last spring. Her ejection fraction is normal. There is no segmen glenn wall motion abnormality. The patient in the past has had a normal nuclear stress test. No histo ry of CAD. Impression: The patient's chest pain is all due to pericarditis, mostly a function rheumatoid arthri tis. It could be pericarditis due to radiation therapy in the chest malignancy. Since it is not [place], it is less likely to be a malignant lesion. I think treating her with high-dose steroids and c olchicine is most likely relieve her pain. I am not sure what the creel clerk would feel about hi gh dose of steroids, but for least a couple of doses, we will give her 60 mg of Solu-Medrol and try t o get some relief. I will leave it to the admitting physician really whether they want to get a pain specialist to evaluate the pain pump to see if it is working appropriately. HERMILA Voice ID: [id number] Report ID: [id number]
[2019-06-06 16:14] VITALS: BP 116/69; TEMP 97.2
[2019-06-06] MEDS ORDERED: HEPARIN 500 UNIT/5 ML SYR IV PRN (19:31)
[2019-06-06] MEDS ORDERED: COLCHICINE 0.6 MG TAB PO SCH (21:00)
[2019-06-06] MEDS ORDERED: ATORVASTATIN 80 MG TAB PO SCH (21:00)
--- NOTE | 2019-06-15 14:23 | P.SSS ---
Patient History Date of Service: 06/06/19 Primary Care Provider: Dr. Wolfe; Cardiology/Oncology-[facility] Reason for admission: Chest pain History of Present Illness: 53-year-old female presented to the emergency room with chest pain. Patient with multiple medical problems including hypertension, chronic renal disease stage IV, stage IV lung cancer, rheumatoid arthritis, chronic pain with pain pump, hypertension, hyperlipidemia, chronic pericardial effusion. Patient was actually seen about 2 weeks ago. She had a CT scan done at that time showing a small pericardial fusion. She was transferred to [facility] to further evaluate. No intervention was required. Patient was discharged home to monitor. In March of this year she was hospitalized at this facility had a cardiac stress test which was unremarkable. Echo also unremarkable. This afternoon she start to have chest pain to the substernal region. It radiated to the back. She rated the pain about a 8/10. Some shortness of breath was noted. She came to the ER for further evaluation. She denied any fever, chills, nausea or vomiting. In the ER patient evaluated. Blood pressure is elevated. White count 5.4, hemoglobin 9.5. Platelet count 170. Sodium 139, potassium 3.4, BUN of 44, creatinine 2.6 with a GFR of 18. Troponin unremarkable. BNP 249. Lipase negative. CT scan without contrast shows no significant change from prior CT scan. Patient was admitted for further evaluation and treatment. When I saw the patient in the ER, she appeared stable. Patient has chronic pain in requested pain medication. Patient has a fentanyl pain pump in place. Patient does not appear septic. Patient appears stable at this time. Chest pain improved. Allergies celecoxib [From Celebrex] Allergy (Verified 07/02/16 02:13) unknown meperidine [From Demerol] Allergy (Verified 07/02/16 02:13) unknown Home medications list reviewed: Yes Home Medications: Sertraline [Zoloft*] 100 mg PO BEDTIME 01/28/19 Temazepam 30 mg PO BEDTIME 01/28/19 Trazodone HCl [Desyrel] 100 mg PO TID 01/28/19 Gabapentin 800 mg PO TID 03/17/19 Levothyroxine [Synthroid*] 50 mcg PO DAILY 03/17/19 Benzonatate [Tessalon Perle*] 100 mg PO Q6HP PRN 06/06/19 Hydrocodone 10/APAP 325 [[place] 10/325*] 1 tab PO Q6HP PRN 06/06/19 Ipratropium/Albuterol Sulfate [Iprat-Albut 0.5-3(2.5) mg/3 ml] 3 ml NEB DAILY Metoprolol Succinate [Toprol Xl*] 50 mg PO DAILY 06/06/19 Morphine [Morphine Sulfate] 2 mg IV Q4HP PRN 06/06/19 Ondansetron [Zofran (Odt)*] 4 mg PO Q8HP 06/06/19 Polyethylene Glycol 3350 [Miralax] 17 gm PO 1X PRN 06/06/19 - Past Medical/Surgical History Has patient received pneumonia vaccine in the past: No Diabetic: No -: Rheumatoid arthritis -: GERD -: HTN -: Stage IV lung cancer -: CAD -: Chronic pericardial effusion -: Hypothyroidism -: Depression with anxiety -: Barretts esophagus -: Chronic pain with pain pump -: Hysterectomy -: Total L knee replacement -: lap mehul, lap appy -: pain pump R abdomen -: L lobe thyroidectomy -: R lobectomy -: tonsillectomy -: 3 corneal transplants Psychosocial/ Personal History: Patient lives at home - Family History Father -: Heart disease, Other (see notes) Notes: rheumatoid arthritis Mother -: Cancer Notes: : breast and throat ca Brother -: Cancer Notes: 2 brothers from ca lung ca, colon ca Sister -: Cancer Notes: lung ca - Social History Smoking Status: Former smoker Alcohol use: No CD- Drugs: No Caffeine use: Yes Place of Residence: Home Review of Systems 10-point ROS is otherwise unremarkable Physical Examination - Vital Signs Temperature: 97.2 F Blood Pressure: 116/69 Pulse: 82 Respirations: 18 Pulse Ox (%): 96 - Physical Exam General: Alert, In no apparent distress HEENT: Atraumatic, PERRLA, Mucous membr. moist/pink, EOMI, Sclerae nonicteric Neck: Supple, 2+ carotid pulse no bruit, No LAD, Without JVD or thyroid abnormality Respiratory: Clear to auscultation bilaterally, Normal air movement Cardiovascular: Regular rate/rhythm, Normal S1 S2 Gastrointestinal: Normal bowel sounds, No tenderness Musculoskeletal: No tenderness Integumentary: No rashes Neurological: Normal gait, Normal speech, Normal strength at 5/5 x4 extr, Normal tone, Normal affect Lymphatics: No axilla or inguinal lymphadenopathy Treatment Summary: Patient was admitted for CP w/ chronic pericardial effusion. CT scan showed no significant change from prior CT scan. Patient recently hospitalized for pericardial effusion. No intervention was required at [facility]. Cardiology consulted. Recommended steroids treatment for pain. No further cardiology interventions planned at this time. ECHO was done, normal with 70% EF. VQ scan with low probability of PE. Cleared for discharge by cardiology. She otherwise did well throughout the stay. Remianed hemodynamically stable. Her diagnosis/treatment plan was explained to her, all questions were answered and she verbalized understanding. She was then discharged in a safe and stable manner. - Disposition Discharge Date: 06/06/19 Disposition: ROUTINE DISCHARGE Condition: GOOD Consultations: Cardiology Patient Discharge Instructions: Pleaes follow up with your pain management physician and sales representative malt [employer] as scheduled. Return to the ER for worsening symptoms Diet: AHA Activity: Ad moe Time Spent Managing Pts Care (In Minutes): 45
== END 2019-06-06 20:32 | disposition home or self-care (01) ==
LOC: ER 21:41 → ERHOLD 06-06 02:10 → 2ND 06-06 02:37
PROVIDERS: ADMIT Family Medicine; ATTEND Family Medicine
DX: I31.3 Pericardial effusion (noninflammatory) (principal); R07.9 Chest pain, unspecified; I12.9 Hypertensive chronic kidney disease with stage 1 through stage 4 chronic kidney disease, or unspecified chronic kidney disease; N18.4 Chronic kidney disease, stage 4 (severe); Z85.118 Personal history of other malignant neoplasm of bronchus and lung; M06.9 Rheumatoid arthritis, unspecified; E78.5 Hyperlipidemia, unspecified; I25.10 Atherosclerotic heart disease of native coronary artery without angina pectoris; Z96.652 Presence of left artificial knee joint; E66.9 Obesity, unspecified; Z68.41 Body mass index [BMI] 40.0-44.9, adult
CPT/HCPCS: 93005; 93306; 87088; 85025; 87086; 80048; 36415; 83735; 82550 ×2; 84132 ×2; 85610; 80076; 85652; 81003 ×2; 84484 ×3; 82553 ×2; 83690; 83880; 71250; 71045; 78582; 96375; 96372; 96374; 99285; J2550; J1644 ×3; J3010; J1170; J1642; J2930; J2405 ×3; A9558; A9540; G0378 ×2

== ENCOUNTER 2019-06-17 00:28 | Emergency (ER) | payer OTHER ==
[2019-06-17 01:15] LABS: Absolute Lymphocytes (CBC) 1.8 K/uL (0.7-4.9); Basophils % 0.3 % (0-1.3); Hematocrit 26.3 % (36.0-45.0); Lymphocytes % 30.8 % (15.3-44.8); MPV 8.2 fL (7.6-11.3); Protime INR 0.95; RBC Red Blood Cell Count 2.73 M/uL (3.86-4.86)
[2019-06-17] MEDS ORDERED: FUROSEMIDE 20 MG/ 2ML VIAL ONE (01:24)
[2019-06-17] MEDS ORDERED: MORPHINE 4 MG/ML SYR ONE (01:25)
[2019-06-17] MEDS ORDERED: ONDANSETRON 4 MG/2 ML VIAL ONE (01:25)
[2019-06-17 02:23] LABS: ALT/SGPT 16 U/L (12-78); AST/SGOT 13 U/L (15-37); Albumin 3.4 g/dL (3.4-5.0); Alkaline Phosphatase 71 U/L (45-117); BUN Blood Urea Nitrogen 37 mg/dL (7-18); Bicarbonate 25 mmol/L (21-32); Bilirubin Direct < 0.1 mg/dL (0-0.2); Bilirubin Total 0.1 mg/dL (0.2-1.0); Glucose Level 105 mg/dL (74-106); Magnesium 2.1 mg/dL (1.8-2.4); NT PRO-BNP 312 pg/mL (<125); Potassium 3.8 mmol/L (3.5-5.1); Protein, Total 6.8 g/dL (6.4-8.2); Sodium Level 142 mmol/L (136-145); Troponin (Emerg Dept Use Only) < 0.02 ng/mL (0.0-0.045)
[2019-06-17] MEDS ORDERED: HYDROMORPHONE HCL 1 MG/ML INJ ONE (02:35)
--- NOTE | 2019-06-17 03:26 | EDPHYS ---
Physician Documentation [facility] Name: Anisha Lindsay Age: 53 yrs Sex: Female : 1965 Arrival Date: 06/17/2019 Time: 00:34 Bed 15 Private MD: ED Physician Kervin Franklin HPI: 06/17 01:01 This 53 yrs old Female presents to ER via EMS with complaints of Chest Pain. pm1 01:01 The patient or guardian reports chest pain that is located primarily in the mid-sternal pm1 area. 01:01 Onset: 1 week(s) ago. The pain radiates to back. Associated signs and symptoms: pm1 Pertinent positives: lower extremity swelling, shortness of breath. The chest pain is described as aching. Duration: The patient or guardian reports a single episode, that is still ongoing. Modifying factors: The symptoms are alleviated by nothing. the symptoms are aggravated by patient reports has Lasix from cardiology but has been afraid to take it. Reports mild swelling to her bilateral lower extremities. Severity of pain: in the emergency department the pain is unchanged. The patient has experienced similar episodes in the past, chronically. The patient has been recently been admitted at [facility], for similar complaints, 06/06/2019. Discharged to follow up with pain management and rheumatology. . FIELD GAUGER: 00:41 LMP N/A - Hysterectomy Historical: - Allergies: 00:41 Adhesives; 00:41 Celebrex; 00:41 Demerol; - Home Meds: 01:21 gabapentin Oral [Active]; Metoprolol Tartrate Oral [Active]; Protonix Oral [Active]; levothyroxine [Active]; albuterol sulfate inhalation [Active]; sertraline Oral [Active]; tizanidine Oral [Active]; Colestid Oral [Active]; Lasix Oral [Active]; - PMHx: 00:41 CHF; CSF leak; Depression; Hypertension; Hypothyroidism; Myocardial infarction; osteo wh arthirtis; Renal Disease; Rheumatoid Arthritis; Stage 4 Lung Cencer- currently on Chemo; - PSHx: 00:41 Appendectomy; Cholecystectomy; Hysterectomy; wh - Immunization history:: Adult Immunizations not immunized. - Social history:: Smoking status: Patient/guardian denies using tobacco. - Ebola Screening: : Patient negative for fever greater than or equal to 101.5 degrees Fahrenheit, and additional compatible Ebola Virus Disease symptoms Patient denies exposure to infectious person. ROS: 03:02 Constitutional: Negative for fever, chills, and weight loss, Eyes: Negative for injury, pm1 pain, redness, and discharge, ENT: Negative for injury, pain, and discharge, Neck: Negative for injury, pain, and swelling. 03:02 Respiratory: Negative for shortness of breath, cough, wheezing, and pleuritic chest pain, Abdomen/GI: Negative for abdominal pain, nausea, vomiting, diarrhea, and constipation, Back: Negative for injury and pain, : Negative for injury, bleeding, discharge, and swelling, MS/Extremity: Negative for injury and deformity, Skin: Negative for injury, rash, and discoloration, Neuro: Negative for headache, weakness, numbness, tingling, and seizure. 03:02 Cardiovascular: Positive for chest pain, edema, Negative for palpitations. Exam: 03:02 Constitutional: This is a well developed, well nourished patient who is awake, alert, pm1 and in no acute distress. Head/Face: Normocephalic, atraumatic. Eyes: Pupils equal round and reactive to light, extra-ocular motions intact. Lids and lashes normal. Conjunctiva and sclera are non-icteric and not injected. Cornea within normal limits. Periorbital areas with no swelling, redness, or edema. ENT: Nares patent. No nasal discharge, no septal abnormalities noted. Tympanic membranes are normal and external auditory canals are clear. Oropharynx with no redness, swelling, or masses, exudates, or evidence of obstruction, uvula midline. Mucous membranes moist. Neck: Trachea midline, no thyromegaly or masses palpated, and no cervical lymphadenopathy. Supple, full range of motion without nuchal rigidity, or vertebral point tenderness. No Meningismus. Chest/axilla: Normal chest wall appearance and motion. Nontender with no deformity. No lesions are appreciated. Respiratory: Lungs have equal breath sounds bilaterally, clear to auscultation and percussion. No rales, rhonchi or wheezes noted. No increased work of breathing, no retractions or nasal flaring. Abdomen/GI: Soft, non-tender, with normal bowel sounds. No distension or tympany. No guarding or rebound. No evidence of tenderness throughout. Back: No spinal tenderness. No costovertebral tenderness. Full range of motion. Skin: Warm, dry with normal turgor. Normal color with no rashes, no lesions, and no evidence of cellulitis. 03:02 MS/ Extremity: Pulses equal, no cyanosis. Neurovascular intact. Full, normal range of motion. 03:02 Cardiovascular: Rate: normal, Rhythm: regular, Pulses: no pulse deficits are appreciated, Heart sounds: normal, normal S1and S2, no murmur, no rub, no gallop, Edema: pedal edema, that is mild. 03:02 Neuro: Orientation: is normal, Motor: is normal, moves all fours. Vital Signs: 00:35 BP 140 / 85; Pulse 97; Resp 17; Temp 99.0(O); Pulse Ox 98% ; lt1 01:22 BP 137 / 69; Pulse 93; Resp 18; Pulse Ox 98% ; wh 03:19 BP 116 / 64; Pulse 95; Resp 18; Pulse Ox 98% on R/A; wh MDM: 00:43 Patient medically screened. pm1 01:20 ED course: Patient concerned over edema to lower extremities. History of CHF. Patient pm1 afraid to take her prescribed Lasix due to kidney insufficiency. Will give patient low dose of Lasix in ER. 02:34 Data reviewed: vital signs. Data interpreted: Pulse oximetry: on room air is 98 %. pm1 Interpretation: normal. 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 03:34 Special discussion: I discussed with the patient/guardian in detail that at this point pm1 there is no indication for admission to the hospital. It is understood, however, that if the symptoms persist or worsen the patient needs to return immediately for re-evaluation. Discussed case with attending and patient does not meet criteria for admission, communicated that to patient. Patient requested pain medication and anti-anxiety medication prior to going home. Told patient I would be fine giving her one, but not both. Patient requested additional pain medication. 06/17 00:43 Order name: Basic Metabolic Panel; Complete Time: 02:28 pm1 06/17 00:43 Order name: CBC with Diff; Complete Time: 01:48 pm1 06/17 00:43 Order name: LFT's; Complete Time: 02:28 pm1 06/17 00:43 Order name: Magnesium; Complete Time: 02:28 pm1 06/17 00:43 Order name: NT PRO-BNP; Complete Time: 02:28 pm1 06/17 00:43 Order name: PT-INR; Complete Time: 02:15 pm1 06/17 00:43 Order name: Troponin (emerg Dept Use Only); Complete Time: 02:28 pm1 06/17 00:43 Order name: XRAY Chest (1 view) pm1 06/17 00:43 Order name: EKG; Complete Time: 00:44 pm1 06/17 00:43 Order name: Cardiac monitoring; Complete Time: 01:00 pm1 06/17 00:43 Order name: EKG - Nurse/Tech; Complete Time: 01:00 pm1 06/17 00:43 Order name: IV Saline Lock; Complete Time: 01:00 pm1 06/17 00:43 Order name: Labs collected and sent; Complete Time: 01:00 pm1 06/17 00:43 Order name: O2 Per Protocol; Complete Time: 01:00 pm1 06/17 00:43 Order name: O2 Sat Monitoring; Complete Time: 01:00 pm1 Administered Medications: 01:36 Drug: morphine 4 mg {Note: RASS 0.} Route: IVP; Site: Port-a-cath; 03:29 Follow up: Response: No adverse reaction; Pain is unchanged, physician notified; RASS: Alert and Calm (0) 01:36 Drug: Zofran 4 mg Route: IVP; Site: Port-a-cath; 03:30 Follow up: Response: No adverse reaction; Nausea is decreased wh 01:36 Drug: Lasix 20 mg Route: IVP; Site: Port-a-cath; 03:30 Follow up: Response: No adverse reaction 02:40 Drug: Dilaudid 1 mg {Note: RASS 0.} Route: IVP; Site: Port-a-cath; 03:30 Follow up: Response: No adverse reaction; Pain is decreased; RASS: Alert and Calm (0) 03:20 Drug: Dilaudid 0.5 mg {Note: RASS 0.} Route: IVP; Site: Port-a-cath; 03:55 Follow up: Response: No adverse reaction; Pain is decreased; RASS: Alert and Calm (0) 03:42 Drug: HEParin Flush 500 units Route: IVP; Site: Port-a-cath; 03:54 Follow up: Response: No adverse reaction Disposition: 22:49 Co-signature as Attending Physician, Kervin Franklin MD. Disposition: 06/17/19 03:24 Discharged to Home. Impression: Chest pain, unspecified. - Condition is Stable. - Discharge Instructions: Nonspecific Chest Pain. - Medication Reconciliation Form, Thank You Letter, Antibiotic Education, Prescription Opioid Use form. - Follow up: Emergency Department; When: As needed; Reason: Worsening of condition. Follow up: Private Physician; When: 2 - 3 days; Reason: Recheck today's complaints, Continuance of care, Re-evaluation by your physician. - Problem is new. - Symptoms have improved. Signatures: Dispatcher [employer] EDMS Koby Eckert NP STIFF LEG DERRICK OPERATOR pm1 Elizabeth Villa Kervin Franklin MD MD Corrections: (The following items were deleted from the chart) 03:03 01:01 The patient has been recently been admitted at [facility], pm1 for similar complaints, 06/06/2019, pm1 03:55 03:24 06/17/2019 03:24 Discharged to Home. Impression: Chest pain, unspecified. Condition is Stable. Forms are Medication Reconciliation Form, Thank You Letter, Antibiotic Education, Prescription Opioid Use. Follow up: Emergency Department; When: As needed; Reason: Worsening of condition. Follow up: Private Physician; When: 2 - 3 days; Reason: Recheck today's complaints, Continuance of care, Re-evaluation by your physician. Problem is new. Symptoms have improved. pm1
--- NOTE | 2019-06-17 03:26 | ER ---
Nurse's Notes [facility] Name: Anisha Lindsay Age: 53 yrs Sex: Female : 1965 Arrival Date: 06/17/2019 Time: 00:34 Bed 15 Private MD: Diagnosis: Chest pain, unspecified Presentation: 06/17 00:34 Presenting complaint: EMS states: C/O chest pain that radiates to the back 10/10 on a pain scale that started last week. Pt states she was diagnosed with pericardial effusion a week ago. Transition of care: patient was not received from another setting of care. Onset of symptoms was June 17, 2019. Risk Assessment: Do you want to hurt yourself or someone else? Patient reports no desire to harm self or others. Care prior to arrival: Medication(s) given: ASA, 325 mg, x 1, Nitro Levan x2. 00:34 Method Of Arrival: EMS: [facility] 00:34 Acuity: CHEN 3 00:38 Initial Sepsis Screen: Does the patient meet any 2 criteria? HR > 90 bpm. Does the patient have a suspected source of infection? No. Patient's initial sepsis screen is negative. MANAGER PACKAGE: 00:41 LMP N/A - Hysterectomy Historical: - Allergies: 00:41 Adhesives; 00:41 Celebrex; 00:41 Demerol; - Home Meds: 01:21 gabapentin Oral [Active]; Metoprolol Tartrate Oral [Active]; Protonix Oral [Active]; levothyroxine [Active]; albuterol sulfate inhalation [Active]; sertraline Oral [Active]; tizanidine Oral [Active]; Colestid Oral [Active]; Lasix Oral [Active]; - PMHx: 00:41 CHF; CSF leak; Depression; Hypertension; Hypothyroidism; Myocardial infarction; osteo wh arthirtis; Renal Disease; Rheumatoid Arthritis; Stage 4 Lung Cencer- currently on Chemo; - PSHx: 00:41 Appendectomy; Cholecystectomy; Hysterectomy; - Immunization history:: Adult Immunizations not immunized. - Social history:: Smoking status: Patient/guardian denies using tobacco. - Ebola Screening: : Patient negative for fever greater than or equal to 101.5 degrees Fahrenheit, and additional compatible Ebola Virus Disease symptoms Patient denies exposure to infectious person. Screenin:39 Abuse screen: Denies threats or abuse. Denies injuries from another. Nutritional wh screening: No deficits noted. Tuberculosis screening: No symptoms or risk factors identified. Fall Risk None identified. Assessment: 01:15 General: Appears in no apparent distress. uncomfortable, Behavior is calm, cooperative, wh appropriate for age. Pain: Complains of pain in chest Pain radiates to back Pain currently is 10 out of 10 on a pain scale. Quality of pain is described as radiating, Pain began 2-3 days ago. Neuro: Level of Consciousness is awake, alert, obeys commands, Oriented to person, place, time, situation, Appropriate for age. Cardiovascular: Heart tones S1 S2 Rhythm is regular. Respiratory: Airway is patent Respiratory effort is even, unlabored, Respiratory pattern is regular, symmetrical. GI: Abdomen is round non-distended. : No signs and/or symptoms were reported regarding the genitourinary system. EENT: No signs and/or symptoms were reported regarding the EENT system. Derm: Skin is intact, is healthy with good turgor, Skin is pink, warm \T\ dry. normal. Musculoskeletal: Circulation, motion, and sensation intact. 02:05 Reassessment: Patient appears in no apparent distress at this time. No changes from previously documented assessment. Patient and/or family updated on plan of care and expected duration. Pain level reassessed. Patient is alert, oriented x 3, equal unlabored respirations, skin warm/dry/pink. Still C/O pain Provider notified. 03:19 Reassessment: Patient appears in no apparent distress at this time. No changes from previously documented assessment. Patient and/or family updated on plan of care and expected duration. Pain level reassessed. Patient is alert, oriented x 3, equal unlabored respirations, skin warm/dry/pink. Patient states feeling better. Patient states symptoms have improved. Vital Signs: 00:35 BP 140 / 85; Pulse 97; Resp 17; Temp 99.0(O); Pulse Ox 98% ; lt1 01:22 BP 137 / 69; Pulse 93; Resp 18; Pulse Ox 98% ; wh 03:19 BP 116 / 64; Pulse 95; Resp 18; Pulse Ox 98% on R/A; ED Course: 00:34 Patient arrived in ED. wh 00:38 Triage completed. wh 00:41 Patient has correct armband on for positive identification. Placed in gown. Bed in low wh position. Call light in reach. Side rails up X 1. services tech on. Pulse ox on. NIBP on. 00:43 Koby Eckert NP is PHCP. pm1 00:43 Kervin Franklin MD is Attending Physician. pm1 01:00 Accessed Port-a-Cath. using accessed w/ # 20 Kahn needle, Clean \T\ dry. Dressing wh intact. Good blood return. Flushes easily. 01:15 Elizabeth Villa is Primary Nurse. wh 01:17 Arm band placed on. wh 01:17 Patient maintains SpO2 saturation greater than 95% on room air. 01:26 X-ray completed. Portable x-ray completed in exam room. Patient tolerated procedure mh1 well. 01:26 XRAY Chest (1 view) In Process Unspecified. EDMS 03:53 No provider procedures requiring assistance completed. IV discontinued, intact, wh bleeding controlled, No redness/swelling at site. Administered Medications: 01:36 Drug: morphine 4 mg {Note: RASS 0.} Route: IVP; Site: Port-a-cath; 03:29 Follow up: Response: No adverse reaction; Pain is unchanged, physician notified; RASS: Alert and Calm (0) 01:36 Drug: Zofran 4 mg Route: IVP; Site: Port-a-cath; 03:30 Follow up: Response: No adverse reaction; Nausea is decreased 01:36 Drug: Lasix 20 mg Route: IVP; Site: Port-a-cath; 03:30 Follow up: Response: No adverse reaction 02:40 Drug: Dilaudid 1 mg {Note: RASS 0.} Route: IVP; Site: Port-a-cath; 03:30 Follow up: Response: No adverse reaction; Pain is decreased; RASS: Alert and Calm (0) 03:20 Drug: Dilaudid 0.5 mg {Note: RASS 0.} Route: IVP; Site: Port-a-cath; 03:55 Follow up: Response: No adverse reaction; Pain is decreased; RASS: Alert and Calm (0) 03:42 Drug: HEParin Flush 500 units Route: IVP; Site: Port-a-cath; 03:54 Follow up: Response: No adverse reaction Outcome: 03:24 Discharge ordered by . pm1 03:54 Discharged to home via wheelchair. 03:54 Condition: good 03:54 Discharge instructions given to patient, Instructed on discharge instructions, follow up and referral plans. POC non specific chest pain Demonstrated understanding of instructions, follow-up care, POC 03:55 Patient left the ED. Signatures: Dispatcher [employer] EDDilma Crowder 1 Koby Eckert NP STRAIGHT PIN MAKING MACHINE OPERATOR pm1 Elizabeth Villa Cherelle, Shantel lt1 Corrections: (The following items were deleted from the chart) 00:39 00:34 Initial Sepsis Screen: Does the patient meet any 2 criteria? No. Patient's initial sepsis screen is negative. Does the patient have a suspected source of infection? No. Patient's initial sepsis screen is negative. 03:29 03:19 BP 107 / 42; Pulse 95bpm; Resp 18bpm; Pulse Ox 98% RA; [facility]
[2019-06-17] MEDS ORDERED: HEPARIN 500 UNIT/5 ML SYR IV ONE (03:27)
[2019-06-17] MEDS ORDERED: HYDROMORPHONE HCL 0.5 MG/0.5 ML INJ ONE (03:34)
[2019-06-17 04:07] VITALS: TEMP 99; O2SAT 98
[2019-06-17 04:09] VITALS: BP 116/64
--- NOTE | 2019-06-17 08:16 | RAD REPORT ---
EXAM DESCRIPTION: RAD - Chest Single View - 06/17/2019 1:26 am CLINICAL HISTORY: Chest pain COMPARISON: CT chest June 06, portable chest June 05 TECHNIQUE: AP portable chest image was obtained 0121 hours . FINDINGS: Lung volumes are low. This accentuates the right hemidiaphragm elevation. Port-A-Cath is p resent on the right. No focal lung parenchymal process and no significant failure or volume overload findings. Heart size normal. No pneumothorax seen. Old rib trauma is noted. Minimal right pleural eff usion can't be excluded. No acute bony abnormality seen. No acute aortic findings suspected. IMPRESSION: Limited portable examination felt be without an acute cardiopulmonary finding.
--- NOTE | 2019-06-17 13:04 | EKG ---
Test Date: 2019-06-17 Test Time: 00:39:19 Legal Specialist: RR MEASUREMENT RESULTS: Intervals: Rate: 96 MT: 170 QRSD: 84 QT: 362 QTc: 457 [place]: P: 58 MT: 170 QRS: 84 T: 61 INTERPRETIVE STATEMENTS: Normal sinus rhythm Normal ECG Compared to ECG 06/05/2019 21:53:50 No significant changes Electronically Signed On 06-17-19 13:03:21 CDT by [employer]
== END 2019-06-17 03:55 | disposition home or self-care (01) ==
LOC: ER 00:28
DX: R07.9 Chest pain, unspecified (principal); I25.2 Old myocardial infarction; I50.9 Heart failure, unspecified; E03.9 Hypothyroidism, unspecified; C34.90 Malignant neoplasm of unspecified part of unspecified bronchus or lung; Z88.6 Allergy status to analgesic agent; Z88.8 Allergy status to other drugs, medicaments and biological substances
CPT/HCPCS: 93005; 85025; 80048; 36415; 83735; 85610; 80076; 84484; 83880; 71045; 96375; 96374; 99285; J1940; J1170 ×2; J1642; J2405

== ENCOUNTER 2019-09-13 14:18 | Emergency (ER) | payer OTHER ==
--- OUTSIDE RECORDS SUMMARY | 2019-09-13 14:20 | XMS REPORT ---
:1965 [facility] Address [address] [place] [address] Dr. Cloud [address] [place] [id number] Care Team Providers Name Role Phone Unavailable Unavailable Unavailable Problems This patient has no known problems. Allergies, Adverse Reactions, Alerts This patient has no known allergies or adverse reactions. Medications This patient has no known medications.
[2019-09-13] MEDS ORDERED: NA CHLORIDE 0.9% 500 ML ONE (15:18)
[2019-09-13] MEDS ORDERED: ONDANSETRON 4 MG/2 ML VIAL ONE (15:18)
[2019-09-13] MEDS ORDERED: MORPHINE 4 MG/ML SYR ONE (15:18)
[2019-09-13] MEDS ORDERED: NA CHLORIDE 0.9% 1,000 ML ONE (15:18)
--- NOTE | 2019-09-13 15:20 | RAD REPORT ---
EXAM DESCRIPTION: RAD - Chest Single View - 09/13/2019 2:57 pm CLINICAL HISTORY: CHEST PAIN Chest pain. COMPARISON: Chest Single View dated 06/17/2019; Chest Single View dated 06/05/2019; Chest Single View dated 05/28/2019; Chest Single View dated 03/17/2019; Thorax Wo Con dated 06/06/2019 FINDINGS: Portable technique limits examination quality. Moderate size rounded airspace opacity in the left apex is present. Given that no real density was pr esent in this region on the 06/17/2019 study, the finding is favored to represent infiltrate/pneumoni a. A rapidly increasing lung mass would be possible but felt to be significantly less likely. The hea rt is normal in size. Right-sided port catheter its tip in the SVC.
[2019-09-13 15:34] LABS: Absolute Lymphocytes (CBC) 1.7 K/uL (0.7-4.9); Basophils % 0.2 % (0-1.3); Hematocrit 31.3 % (36.0-45.0); Lymphocytes % 26.7 % (15.3-44.8); MPV 8.3 fL (7.6-11.3); RBC Red Blood Cell Count 3.34 M/uL (3.86-4.86)
[2019-09-13 15:37] LABS: Protime INR 1.04
--- NOTE | 2019-09-13 15:41 | RAD REPORT ---
EXAM DESCRIPTION: CT - Head Brain Wo Cont - 09/13/2019 3:33 pm CLINICAL HISTORY: DIZZINESS Headache, drowsiness COMPARISON: Head Brain Wo Cont dated 01/27/2019; Head Brain Wo Cont dated 07/01/2016 TECHNIQUE: All CT scans are performed using dose optimization technique as appropriate and may inclu de automated exposure control or mA/KV adjustment according to patient size. FINDINGS: No intracranial hemorrhage, hydrocephalus or extra-axial fluid collection.No areas of brai n edema or evidence of midline shift. The paranasal sinuses and mastoids are clear. The calvarium is intact. IMPRESSION: No acute intracranial abnormality.
[2019-09-13 15:50] LABS: Urine Blood TRACE (NEG); Urine Glucose NEGATIVE (NEG); Urine Protein 1+ (NEG); Urine Specific Gravity 1.015 (1.005-1.030); Urine pH 5.5 (5.0-7.0)
[2019-09-13 16:04] LABS: ALT/SGPT 18 U/L (12-78); AST/SGOT 12 U/L (15-37); Albumin 3.4 g/dL (3.4-5.0); Alkaline Phosphatase 80 U/L (45-117); BUN Blood Urea Nitrogen 30 mg/dL (7-18); Bicarbonate 25 mmol/L (21-32); Bilirubin Direct < 0.1 mg/dL (0-0.2); Bilirubin Total 0.2 mg/dL (0.2-1.0); Glucose Level 89 mg/dL (74-106); Magnesium 2.1 mg/dL (1.8-2.4); NT PRO-BNP 115 pg/mL (<125); Potassium 3.7 mmol/L (3.5-5.1); Protein, Total 7.3 g/dL (6.4-8.2); Sodium Level 141 mmol/L (136-145); Troponin (Emerg Dept Use Only) < 0.02 ng/mL (0.0-0.045)
--- NOTE | 2019-09-13 17:11 | EKG ---
Test Date: 2019-09-13 Test Time: 14:56:35 Boilerhouse Mechanic: PAGE MEASUREMENT RESULTS: Intervals: Rate: 80 RI: 166 QRSD: 86 QT: 374 QTc: 431 [place]: P: 48 RI: 166 QRS: 70 T: 50 INTERPRETIVE STATEMENTS: Normal sinus rhythm Septal infarct, age undetermined Abnormal ECG Compared to ECG 06/17/2019 00:39:19 Myocardial infarct finding now present Electronically Signed On 09-13-19 17:10:33 DIRECTOR OF ELEMENTARY EDUCATION by Tim Tsnag
[2019-09-13] MEDS ORDERED: MORPHINE 2 MG/ML SYR ONE (17:33)
--- NOTE | 2019-09-13 18:22 | ER ---
Nurse's Notes [facility] Name: Anisha Lindsay Age: 54 yrs Sex: Female : 1965 Arrival Date: 09/13/2019 Time: 14:24 Bed 7 Private MD: Ninfa Mensah R Diagnosis: Chest pain, unspecified-non cardiac;Unspecified kidney failure;Anemia, unspecified Presentation: 09/13 14:33 Presenting complaint: Patient states: Dizziness and palpitations that started about an sg hour ago today, reports having chest pain on and off and seen here in the ED recently for Chest pain but just not getting any better, reports nausea but not at this time. Transition of care: patient was not received from another setting of care. Onset of symptoms was September 13, 2019. Risk Assessment: Do you want to hurt yourself or someone else? Patient reports no desire to harm self or others. Initial Sepsis Screen: Does the patient meet any 2 criteria? No. Patient's initial sepsis screen is negative. Does the patient have a suspected source of infection? No. Patient's initial sepsis screen is negative. Care prior to arrival: None. 14:33 Method Of Arrival: Ambulatory sg 14:33 Acuity: CHEN 3 sg Triage Assessment: 14:39 General: Appears in no apparent distress. comfortable, obese, Behavior is cooperative, bp appropriate for age, anxious. Pain: Complains of pain in chest Pain radiates to back. EENT: No deficits noted. Neuro: No deficits noted. Cardiovascular: Rhythm is sinus rhythm. Respiratory: No deficits noted. GI: Reports nausea. : No signs and/or symptoms were reported regarding the genitourinary system. Derm: No deficits noted. Musculoskeletal: No deficits noted. 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 - Social history:: Smoking status: Patient/guardian denies using tobacco. - Ebola Screening: : Patient negative for fever greater than or equal to 101.5 degrees Fahrenheit, and additional compatible Ebola Virus Disease symptoms Patient denies exposure to infectious person Patient denies travel to an Ebola-affected area in the 21 days before illness onset No symptoms or risks identified at this time. - Family history:: not pertinent. Screenin:40 Abuse screen: Denies threats or abuse. Denies injuries from another. Nutritional bp screening: No deficits noted. Tuberculosis screening: No symptoms or risk factors identified. Fall Risk None identified. Assessment: 14:40 General: SEE TRIAGE NOTE. bp 15:23 Reassessment: PT TO CT WITH MOTION STUDY ANALYST. bp 16:03 Reassessment: RESULTS PENDING, ALL CURRENT ORDERS COMPLETED. bp 17:01 Reassessment: REPEAT TROPONIN DUE AT 1730. VS STABLE AT THIS TIME. bp 18:03 Reassessment: REPEAT TROPONIN NEGATIVE, MD INFORMED. VS STABLE ON MONITOR. bp 18:44 Reassessment: PT D/C HOME VIA W/C WITH FAMILY, DX WITH NON CARDIAC CHEST PAIN. bp Vital Signs: 14:33 BP 142 / 60; Pulse 71; Resp 18; Temp 97.7; Pulse Ox 100% on R/A; Weight 59.42 kg; bp Height 5 ft. 2 in. (157.48 cm); 16:00 BP 105 / 62; Pulse 70; Resp 16; Pulse Ox 99% ; bp 17:02 BP 104 / 56; Pulse 71; Resp 16; Pulse Ox 100% ; bp 18:02 BP 106 / 61; Pulse 74; Resp 13 S; Pulse Ox 97% on R/A; jl7 18:45 BP 106 / 67; Pulse 72; Resp 19; Temp 98; Pulse Ox 99% ; bp 14:33 Body Mass Index 23.96 (59.42 kg, 157.48 cm) bp ED Course: 14:24 Patient arrived in ED. am2 14:24 Ninfa Mensah MD is Private Physician. am2 14:33 Travon Carvajal, RN is Primary Nurse. bp 14:33 Arm band placed on. sg 14:35 Triage completed. sg 14:40 Patient has correct armband on for positive identification. Placed in gown. Bed in low bp position. Call light in reach. Side rails up X2. lunchroom monitor on. Pulse ox on. NIBP on. 14:45 Андрей Velasco MD is Attending Physician. eloy 14:57 XRAY Chest (1 view) In Process Unspecified. EDMS 15:10 Accessed Port-a-Cath. using accessed w/ #19 Kahn needle, ,sterile technique, per hospital protocol. Clean \T\ dry. Dressing intact. Good blood return. Flushes easily. 15:26 EKG done, by ED staff, reviewed by Андрей Velasco MD. kj1 15:32 CT Head Brain wo Cont In Process Unspecified. EDMS 18:20 Grupo Goddard MD is Referral Physician. eloy 18:47 No provider procedures requiring assistance completed. IV discontinued, intact, bp bleeding controlled, No redness/swelling at site. Pressure dressing applied. Patient maintains SpO2 saturation greater than 95% on room air. Administered Medications: 15:10 Drug: NS 0.9% 500 ml Route: IV; Rate: bolus; Site: Port-a-cath; bp 18:48 Follow up: IV Status: Completed infusion; IV Intake: 500ml bp 15:10 Drug: NS 0.9% 1000 ml Route: IV; Rate: 125 ml/hr; Site: Port-a-cath; bp 18:48 Follow up: IV Status: Completed infusion; IV Intake: 500ml bp 15:20 Drug: morphine 4 mg Route: IVP; Site: Port-a-cath; bp 16:04 Follow up: Response: Pain is decreased bp 15:20 Drug: Zofran 4 mg Route: IVP; Site: Port-a-cath; bp 16:04 Follow up: Response: Nausea is decreased bp 17:21 Drug: morphine 4 mg Route: IVP; Site: Port-a-cath; bp 18:03 Follow up: Response: Pain is decreased bp Intake: 18:48 IV: 500ml; Total: 500ml. bp 18:48 IV: 500ml; Total: 1000ml. bp Outcome: 18:20 Discharge ordered by MD. eloy 18:45 Discharged to home ambulatory, with family. bp 18:45 Condition: stable 18:45 Discharge instructions given to patient, Instructed on discharge instructions, follow up and referral plans. Demonstrated understanding of instructions, follow-up care. 18:49 Patient left the ED. bp Signatures: Dispatcher [employer] EDMS Aashish Alejandro, RN RN sg Андрей Velasco MD MD cha Leal, Jahala RN RN jl7 Pia Tobin am2 Travon Carvajal RN RN bp Courtney Orellana kj1 Corrections: (The following items were deleted from the chart) 14:39 14:33 BP 142 / 60; Pulse 71bpm; Resp 18bpm; Pulse Ox 100% RA; Temp 97.7F; sg bp
--- NOTE | 2019-09-13 18:22 | EDPHYS ---
Physician Documentation [facility] Name: Anisha Lindsay Age: 54 yrs Sex: Female : 1965 Arrival Date: 09/13/2019 Time: 14:24 Bed 7 Private MD: Ninfa Mensah R ED Physician Андрей Velasco HPI: 09/13 15:10 This 54 yrs old Female presents to ER via Ambulatory with complaints of Chest eloy Pressure, Dizziness. 15:10 The patient or guardian reports chest pain that is located primarily in the substernal eloy area. Onset: 2 day(s) ago. The pain does not radiate. Associated signs and symptoms: The patient has no apparent associated signs or symptoms. The chest pain is described as squeezing. Duration: The patient or guardian reports a single episode, that is still ongoing, and unchanged. Modifying factors: The symptoms are alleviated by nothing. the symptoms are aggravated by activity. Severity of pain: At its worst the pain was mild in the emergency department the pain is unchanged. 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 - Social history:: Smoking status: Patient/guardian denies using tobacco. - Ebola Screening: : Patient negative for fever greater than or equal to 101.5 degrees Fahrenheit, and additional compatible Ebola Virus Disease symptoms Patient denies exposure to infectious person Patient denies travel to an Ebola-affected area in the 21 days before illness onset No symptoms or risks identified at this time. - Family history:: not pertinent. ROS: 15:10 Constitutional: Negative for fever, chills, and weight loss, Eyes: Negative for injury, eloy pain, redness, and discharge, ENT: Negative for injury, pain, and discharge, Neck: Negative for injury, pain, and swelling, Respiratory: Negative for shortness of breath, cough, wheezing, and pleuritic chest pain, Abdomen/GI: Negative for abdominal pain, nausea, vomiting, diarrhea, and constipation, Back: Negative for injury and pain, : Negative for injury, bleeding, discharge, and swelling, MS/Extremity: Negative for injury and deformity, Skin: Negative for injury, rash, and discoloration, Neuro: Negative for headache, weakness, numbness, tingling, and seizure, Psych: Negative for depression, anxiety, suicide ideation, homicidal ideation, and hallucinations, Allergy/Immunology: Negative for hives, rash, and allergies, Endocrine: Negative for neck swelling, polydipsia, polyuria, polyphagia, and marked weight changes, Hematologic/Lymphatic: Negative for swollen nodes, abnormal bleeding, and unusual bruising. 15:10 Cardiovascular: Positive for chest pain, of the chest. Exam: 15:10 Constitutional: This is a well developed, well nourished patient who is awake, alert, eloy and in no acute distress. Head/Face: Normocephalic, atraumatic. Eyes: Pupils equal round and reactive to light, extra-ocular motions intact. Lids and lashes normal. Conjunctiva and sclera are non-icteric and not injected. Cornea within normal limits. Periorbital areas with no swelling, redness, or edema. ENT: Nares patent. No nasal discharge, no septal abnormalities noted. Tympanic membranes are normal and external auditory canals are clear. Oropharynx with no redness, swelling, or masses, exudates, or evidence of obstruction, uvula midline. Mucous membranes moist. Neck: Trachea midline, no thyromegaly or masses palpated, and no cervical lymphadenopathy. Supple, full range of motion without nuchal rigidity, or vertebral point tenderness. No Meningismus. Chest/axilla: Normal chest wall appearance and motion. Nontender with no deformity. No lesions are appreciated. Cardiovascular: Regular rate and rhythm with a normal S1 and S2. No gallops, murmurs, or rubs. Normal PMI, no JVD. No pulse deficits. Respiratory: Lungs have equal breath sounds bilaterally, clear to auscultation and percussion. No rales, rhonchi or wheezes noted. No increased work of breathing, no retractions or nasal flaring. Abdomen/GI: Soft, non-tender, with normal bowel sounds. No distension or tympany. No guarding or rebound. No evidence of tenderness throughout. Back: No spinal tenderness. No costovertebral tenderness. Full range of motion. Female : Normal external genitalia. Skin: Warm, dry with normal turgor. Normal color with no rashes, no lesions, and no evidence of cellulitis. MS/ Extremity: Pulses equal, no cyanosis. Neurovascular intact. Full, normal range of motion. Neuro: Awake and alert, GCS 15, oriented to person, place, time, and situation. Cranial nerves II-XII grossly intact. Motor strength 5/5 in all extremities. Sensory grossly intact. Cerebellar exam normal. Normal gait. Psych: Awake, alert, with orientation to person, place and time. Behavior, mood, and affect are within normal limits. 15:12 Musculoskeletal/extremity: DVT Exam: No signs of deep vein thrombosis. no pain, no eloy swelling, no tenderness, negative Homans' sign noted on exam, no appreciated bluish discoloration, no erythema, no increased warmth. Vital Signs: 14:33 BP 142 / 60; Pulse 71; Resp 18; Temp 97.7; Pulse Ox 100% on R/A; Weight 59.42 kg; bp Height 5 ft. 2 in. (157.48 cm); 16:00 BP 105 / 62; Pulse 70; Resp 16; Pulse Ox 99% ; bp 17:02 BP 104 / 56; Pulse 71; Resp 16; Pulse Ox 100% ; bp 18:02 BP 106 / 61; Pulse 74; Resp 13 S; Pulse Ox 97% on R/A; jl7 18:45 BP 106 / 67; Pulse 72; Resp 19; Temp 98; Pulse Ox 99% ; bp 14:33 Body Mass Index 23.96 (59.42 kg, 157.48 cm) bp MDM: 14:45 Patient medically screened. [facility] 15:12 Data reviewed: vital signs, nurses notes, lab test result(s), EKG, radiologic studies, [facility] plain films. 09/13 14:41 Order name: Basic Metabolic Panel; Complete Time: 16:51 bp 09/13 14:41 Order name: CBC with Diff; Complete Time: 16:51 bp 09/13 14:41 Order name: LFT's; Complete Time: 16:51 bp 09/13 14:41 Order name: Magnesium; Complete Time: 16:51 bp 09/13 14:41 Order name: NT PRO-BNP; Complete Time: 16:51 bp 09/13 14:41 Order name: PT-INR; Complete Time: 16:51 bp 09/13 14:41 Order name: Troponin (emerg Dept Use Only); Complete Time: 16:51 bp 09/13 14:41 Order name: XRAY Chest (1 view); Complete Time: 16:51 bp 09/13 14:46 Order name: Lipase; Complete Time: 16:51 eloy 09/13 14:46 Order name: Urine Culture [facility] 09/13 15:09 Order name: CT Head Brain wo Cont; Complete Time: 16:51 eloy 09/13 15:27 Order name: Urine Dipstick--Ancillary (enter results); Complete Time: 16:51 eb 09/13 16:52 Order name: Troponin (emerg Dept Use Only): 530pm; Complete Time: 18:18 eloy 09/13 14:41 Order name: EKG; Complete Time: 14:42 bp 09/13 14:41 Order name: Cardiac monitoring; Complete Time: 14:41 bp 09/13 14:41 Order name: EKG - Nurse/Tech; Complete Time: 14:50 bp 09/13 14:41 Order name: IV Saline Lock; Complete Time: 15:23 bp 09/13 14:41 Order name: Labs collected and sent; Complete Time: 15:23 bp 09/13 14:41 Order name: O2 Per Protocol; Complete Time: 14:41 bp 09/13 14:41 Order name: O2 Sat Monitoring; Complete Time: 14:42 bp 09/13 14:46 Order name: Urine Dipstick-Ancillary (obtain specimen); Complete Time: 16:04 eloy Administered Medications: 15:10 Drug: NS 0.9% 500 ml Route: IV; Rate: bolus; Site: Port-a-cath; bp 18:48 Follow up: IV Status: Completed infusion; IV Intake: 500ml bp 15:10 Drug: NS 0.9% 1000 ml Route: IV; Rate: 125 ml/hr; Site: Port-a-cath; bp 18:48 Follow up: IV Status: Completed infusion; IV Intake: 500ml bp 15:20 Drug: morphine 4 mg Route: IVP; Site: Port-a-cath; bp 16:04 Follow up: Response: Pain is decreased bp 15:20 Drug: Zofran 4 mg Route: IVP; Site: Port-a-cath; bp 16:04 Follow up: Response: Nausea is decreased bp 17:21 Drug: morphine 4 mg Route: IVP; Site: Port-a-cath; bp 18:03 Follow up: Response: Pain is decreased bp Disposition: 09/13/19 18:20 Discharged to Home. Impression: Chest pain, unspecified - non cardiac, Unspecified kidney failure, Anemia, unspecified. - Condition is Stable. - Discharge Instructions: Nonspecific Chest Pain, Nonspecific Chest Pain, [id number], Aspirin and Your Heart. - Medication Reconciliation Form, Thank You Letter, Antibiotic Education, Prescription Opioid Use form. - Follow up: Private Physician; When: 2 - 3 days; Reason: Recheck today's complaints, Continuance of care, Re-evaluation by your physician. Follow up: [facility]; When: 2 - 3 days; Reason: Recheck today's complaints, Continuance of care, Re-evaluation by your physician. - Problem is new. - Symptoms have improved. Signatures: Dispatcher [employer] EDAashish Patel RN RN Андрей Jacobsen MD MD cha Peltier, Brian, RN RN bp Corrections: (The following items were deleted from the chart) 18:49 18:20 09/13/2019 18:20 Discharged to Home. Impression: Chest pain, unspecified - non bp cardiac; Unspecified kidney failure; Anemia, unspecified. Condition is Stable. Discharge Instructions: Nonspecific Chest Pain, Nonspecific Chest Pain, [id number], Aspirin and Your Heart. Forms are Medication Reconciliation Form, Thank You Letter, Antibiotic Education, Prescription Opioid Use. Follow up: Private Physician; When: 2 - 3 days; Reason: Recheck today's complaints, Continuance of care, Re-evaluation by your physician. Follow up: [facility]; When: 2 - 3 days; Reason: Recheck today's complaints, Continuance of care, Re-evaluation by your physician. Problem is new. Symptoms have improved. eloy
[2019-09-13 19:30] VITALS: BP 106/67; TEMP 98; O2SAT 99
== END 2019-09-13 18:49 | disposition home or self-care (01) ==
LOC: ER 14:18
DX: N19 Unspecified kidney failure (principal); I12.9 Hypertensive chronic kidney disease with stage 1 through stage 4 chronic kidney disease, or unspecified chronic kidney disease; D63.1 Anemia in chronic kidney disease; E03.9 Hypothyroidism, unspecified; I50.9 Heart failure, unspecified; I25.2 Old myocardial infarction; C34.90 Malignant neoplasm of unspecified part of unspecified bronchus or lung; Z88.5 Allergy status to narcotic agent; Z88.8 Allergy status to other drugs, medicaments and biological substances; Z91.048 Other nonmedicinal substance allergy status
CPT/HCPCS: 96361; 93005; 87088; 85025; 87086; 80048; 36415; 83735; 85610; 80076; 87077; 87186; 81003; 84484 ×2; 83690; 83880; 70450; 71045; 96375; 96374; 99285; J2270; J7040; J7030; J2405

== ENCOUNTER 2019-11-06 00:19 | Inpatient (IN) | payer OTHER ==
--- OUTSIDE RECORDS SUMMARY | 2019-11-06 00:21 | XMS REPORT ---
:1965 Author Organization [facility] Address [address] [place] [address] Dr. Cloud [address] [place] [id number] Care Team Providers Name Role Phone Unavailable Unavailable Unavailable Problems This patient has no known problems. Allergies, Adverse Reactions, Alerts This patient has no known allergies or adverse reactions. Medications This patient has no known medications. Results Test Description Test Time Test Comments Text Results Atomic Results Result Comments [place], CRISSY, 2019-10-09 Reason for FINAL REPORT PATIENT NON-SPECIFIC, UP TO 1 08:26:00 exam:->Chronic Pain ID: [id number] A HOUR fluoroscopic unit was utilized for a procedure performed in the operating room. No interpretation was requested. Please refer to the operative report regarding findings. Please refer to PACS for patient radiation dose information. Signed: Jia Linn Verified Date/Time: 10/09/2019 08:26:53 Reading Location: [facility] Radiology Reading Room
--- OUTSIDE RECORDS SUMMARY | 2019-11-06 00:22 | XMS REPORT | Summary of Care ---
:1965 Author Organization [facility] [place] [address] Care Team Providers Name Role Phone [facility] Reason for Visit Reason Comments Initial Consultation chronic pain - ITP revision Encounter Details Date Type Department Care Team Description 10/05/2019 Office Visit [facility] Sherrie, Initial Consultation Medicine Percy Hedrick, (chronic pain - ITP Neurosurgery SHINGLE CUTTER-BC revision ) [address] [place] [address] [address], [address] [place] [phone] Allergies Active Allergy Reactions Severity Noted Date Comments Adhesive Tape 07/25/2013 Celecoxib 08/16/2012 Demerol Hives 02/21/2012 documented as of this encounter (statuses as of 10/08/2019) Medications Medication Sig Dispensed Refills Start Date End Date Status tobramycin 15 mg/mL 1 Drop every 0 Active ophthalmic solution hour. lisinopril-hydrochlorot Take 1 Tab by 0 Active hiazide (PRINZIDE, mouth daily. ZESTORETIC) 20-12.5 MG per tablet furosemide (LASIX) 20 Take 20 mg by 0 Active MG tablet mouth daily. furosemide (LASIX) 40 Take 40 mg by 0 Active MG tablet mouth daily. levothyroxine Take 75 mcg by 0 Active (SYNTHROID) 75 MCG mouth daily. tablet FOLIC ACID 0 Active venlafaxine (EFFEXOR Take 75 mg by 0 Active XR) 75 MG XR capsule mouth daily. hydrocodone-acetaminoph Take 1 Tab by 0 Active en (LORCET) 10-650 MG mouth every 6 per tablet hours as needed. alprazolam (XANAX) 2 MG Take 2 mg by 0 Active tablet mouth nightly as needed. carisoprodol (SOMA) 350 Take 350 mg by 0 Active MG tablet mouth four times daily. gabapentin (NEURONTIN) Take 300 mg by 0 Active 300 MG capsule mouth 3 times daily. venlafaxine (EFFEXOR) Take 37.5 mg by 0 Active 37.5 MG tablet mouth 3 times daily. levothyroxine Take 50 mcg by 0 Active (SYNTHROID) 50 MCG mouth daily. tablet OxyCODONE HCl 5 MG TABA Take by mouth. 0 Active losartan-hydrochlorothi 0 01/21/2015 Active azide (HYZAAR) 100-25 MG per tablet fentanyl (DURAGESIC) 0 01/22/2015 Active 100 MCG/HR patch AMITIZA 24 MCG CAPS 0 12/25/2014 Active RELISTOR 12 MG/0.6ML 0 01/22/2015 Active SOLN omeprazole (PRILOSEC) 0 01/21/2015 Active 20 MG capsule oxycodone (OXY-IR) 30 0 01/22/2015 Active MG immediate release tablet predniSONE (DELTASONE) 0 12/03/2014 Active 5 MG tablet PEG 0 12/24/2014 Active 1724-WZt-GjHtn-NaCl-Ernestina ulf (PEG-3350/ELECTROLYTES) 236 G SOLR tizanidine (ZANAFLEX) 4 0 01/22/2015 Active MG tablet rizatriptan (MAXALT) 5 0 01/24/2015 Active MG tablet acetaZOLAMIDE (DIAMOX) Take 1 Tab by 60 Tab 3 04/03/2015 Active 250 mg tablet mouth two times daily. Additional Information Patient not taking. Reason: Therapy completed, Reported on 10/05/2019 10:43 AM acetaZOLAMIDE (DIAMOX SEQUELS) Take 1 Cap by mouth two 60 Cap 3 05/30/2015 Active 500 mg capsule times daily. Additional Information Patient not taking. Reason: Therapy completed, Reported on 10/05/2019 10:43 AM prednisoLONE acetate (PRED Place 1 Drop into the left 10 mL 2 06/17/2015 Active FORTE) 1 % ophthalmic eye four times daily. Shake suspension well before instillation atropine 1 % ophthalmic Place 1 Drop into the left 5 mL 1 07/04/2015 Active solution eye two times daily. Additional Information Patient not taking. Reason: Therapy completed, Reported on 10/05/2019 10:43 AM leflunomide (ARAVA) 20 MG Take 20 mg by mouth 0 Active tablet daily. Loteprednol Etabonate Place 1 Drop into the 1 Bottle 3 05/03/2016 Active (LOTEMAX) 0.5 % GEL left eye 3 times daily. acyclovir (ZOVIRAX) 400 MG Take 1 Tab by mouth two 100 Tab 0 05/24/2016 Active tablet times daily. Additional Information Patient not taking. Reason: Therapy completed, Reported on 10/05/2019 10:43 AM ofloxacin (OCUFLOX) 0.3 % Apply 1 Drop to eye four 5 mL 3 11/23/2016 Active ophthalmic solution times daily. Left eye COMBIGAN 0.2-0.5 % ophthalmic Place 1 Drop into the left 5 mL 6 02/17/2017 Active solution eye every 12 hours. fentanyl (DURAGESIC) 100 MCG/HR Place 1 Patch onto the skin 0 Active patch daily. documented as of this encounter (statuses as of 10/08/2019) Active Problems Problem Noted Date Malfunction of intrathecal infusion pump 10/08/2019 Secondary glaucoma 11/27/2015 H/O juvenile rheumatoid arthritis 11/27/2015 Corneal transplant failure 10/30/2015 Post corneal transplant 09/27/2012 Corneal opacity 08/16/2012 documented as of this encounter (statuses as of 10/08/2019) Social History Tobacco Use Types Packs/Day Years Used Date Former Smoker Smokeless Tobacco: Never Used Alcohol Use Drinks/Week oz/Week Comments No Sex Assigned at Date Recorded Not on file Job Start Date Occupation Industry Not on file Not on file Not on file Travel History Travel Start Travel End No recent travel history available. documented as of this encounter Last Filed Vital Signs Vital Sign Reading Time Taken Comments Blood Pressure 100/65 10/05/2019 10:47 AM MEASUREMENT ANALYST Pulse 72 10/05/2019 10:47 AM MEASUREMENT ANALYST Temperature 36.6 C (97.9 F) 10/05/2019 10:47 AM MEASUREMENT ANALYST Respiratory Rate 14 10/05/2019 10:47 AM MEASUREMENT ANALYST Oxygen Saturation 94% 10/05/2019 10:47 AM MEASUREMENT ANALYST Inhaled Oxygen Concentration - - Weight 106.1 kg (234 lb) 10/05/2019 10:47 AM MEASUREMENT ANALYST Height 157.5 cm (5' 2") 10/05/2019 10:47 AM MEASUREMENT ANALYST Body Mass Index 42.8 10/05/2019 10:47 AM MEASUREMENT ANALYST documented in this encounter Progress Notes Kwadwo Balderasmojgansamantha Hedrick, SHINGLE CUTTER-BC - 10/05/2019 10:30 AM CST Referring Physician: Melvina Soria MD [address] [facility] [address] [place] [address] CHIEF COMPLAINT: ITP dysfunction HISTORY OF PRESENT ILLNESS: I had the pleasure of seeing Anisha Lindsay today at the [facility]. The patient is a 54 y.o. male who presents with chronic pain related to lung cancer. The patient has an implanted intrathecal (opioid) pump managed by Dr. Soria. The pt has been referred to our service to consider pump revision surgery. Her pump has migratedwithin the pocket and is "flipping". Her pain management physician is unable to access the port to refill the pump. Her pump has since been shut off until she can undergo revision surgery. CURRENT MEDICATIONS: Current Outpatient Medications Medication Sig Dispense Refill acetaZOLAMIDE (DIAMOX SEQUELS) 500 mg capsule Take 1 Cap by mouth two times daily. (Patient not taking: Reported on 10/05/2019) 60 Cap 3 acetaZOLAMIDE (DIAMOX) 250 mg tablet Take 1 Tab by mouth two times daily. ( Patient not taking: Reported on 10/05/2019) 60 Tab 3 acyclovir (ZOVIRAX) 400 MG tablet Take 1 Tab by mouth two times daily. ( Patient not taking: Reported on 10/05/2019) 100 Tab 0 alprazolam (XANAX) 2 MG tablet Take 2 mg by mouth nightly as needed. AMITIZA 24 MCG CAPS atropine 1 % ophthalmic solution Place 1 Drop into the left eye two times daily. (Patient not taking: Reported on 10/05/2019) 5 mL 1 carisoprodol (SOMA) 350 MG tablet Take 350 mg by mouth four times daily. COMBIGAN 0.2-0.5 % ophthalmic solution Place 1 Drop into the left eye every 12 hours. 5 mL 6 fentanyl (DURAGESIC) 100 MCG/HR patch Place 1 Patch onto the skin daily. fentanyl (DURAGESIC) 100 MCG/HR patch FOLIC ACID furosemide (LASIX) 20 MG tablet Take 20 mg by mouth daily. furosemide (LASIX) 40 MG tablet Take 40 mg by mouth daily. gabapentin (NEURONTIN) 300 MG capsule Take 300 mg by mouth 3 times daily. hydrocodone-acetaminophen (LORCET) 10-650 MG per tablet Take 1 Tab by mouth every 6 hours as needed. leflunomide (ARAVA) 20 MG tablet Take 20 mg by mouth daily. levothyroxine (SYNTHROID) 50 MCG tablet Take 50 mcg by mouth daily. levothyroxine (SYNTHROID) 75 MCG tablet Take 75 mcg by mouth daily. lisinopril-hydrochlorothiazide (PRINZIDE, ZESTORETIC) 20-12.5 MG per tablet Take 1 Tab by mouth daily. losartan-hydrochlorothiazide (HYZAAR) 100-25 MG per tablet Loteprednol Etabonate (LOTEMAX) 0.5 % GEL Place 1 Drop into the left eye 3 times daily. 1 Bottle3 ofloxacin (OCUFLOX) 0.3 % ophthalmic solution Apply 1 Drop to eye four times daily. Left eye 5 mL 3 omeprazole (PRILOSEC) 20 MG capsule oxycodone (OXY-IR) 30 MG immediate release tablet OxyCODONE HCl 5 MG TABA Take by mouth. PEG 9174-ZXx-QrSmy-NaCl-NaSulf (PEG-3350/ELECTROLYTES) 236 G SOLR prednisoLONE acetate (PRED FORTE) 1 % ophthalmic suspension Place 1 Drop into the left eye four times daily. Shake well before instillation 10 mL 2 predniSONE (DELTASONE) 5 MG tablet RELISTOR 12 MG/0.6ML SOLN rizatriptan (MAXALT) 5 MG tablet tizanidine (ZANAFLEX) 4 MG tablet tobramycin 15 mg/mL ophthalmic solution 1 Drop every hour. venlafaxine (EFFEXOR XR) 75 MG XR capsule Take 75 mg by mouth daily. venlafaxine (EFFEXOR) 37.5 MG tablet Take 37.5 mg by mouth 3 times daily. No current facility-administered medications for this visit. ALLERGIES: Allergies Allergen Reactions Adhesive Tape Celebrex [Celecoxib] Demerol Hives PAST MEDICAL HISTORY: Past Medical History: Diagnosis Date Arthritis Depression Hypothyroidism Keratitis Lung cancer (HCCode) Osteoarthritis Renal disease Rheumatoid arthritis(714.0) PAST SURGICAL HISTORY: Past Surgical History: Procedure Laterality Date HX APPENDECTOMY HX CHOLECYSTECTOMY HX HEART SURGERY HX JOINT REPLACEMENT HX LUNG REMOVAL, PARTIAL HX PARTIAL HYSTERECTOMY HX THYROIDECTOMY, PARTIAL HX TONSILLECTOMY HX TOTAL KNEE REPLACEMENT HX VENTRAL HERNIA REPAIR HX WRIST SURGERY FAMILY HISTORY: Family History Problem Relation Name Age of Onset Hypertension Sister Cancer Sister Cancer Brother Macular Degen Mother Cataract Mother Hypertension Mother Cancer Mother Hypertension Father Cancer Father Cataract Maternal Grandmother Glaucoma Neg Hx Blindness Neg Hx Retinal Detachment Neg Hx Amblyopia Neg Hx Strabismus Neg Hx Fuchs' Dystrophy Neg Hx Corneal Dystrophy Neg Hx Retinitis Pigmentosa Neg Hx Occular Albinism Neg Hx Neurofibromatosis Neg Hx Marfan Syndrome Neg Hx Bardet-Biedl Syndrome Neg Hx Thyroid Disease Neg Hx Diabetes Neg Hx Stroke Neg Hx SOCIAL HISTORY: Social History Socioeconomic History Marital status: Spouse name: Not on file Number of children: Not on file Years of education: Not on file Highest education level: Not on file Occupational History Not on file Social Needs Financial resource strain: Not on file Food insecurity: Worry: Not on file Inability: Not on file Transportation needs: Medical: Not on file Non-medical: Not on file Tobacco Use Smoking status: Former Smoker Smokeless tobacco: Never Used Substance and Sexual Activity Alcohol use: No Drug use: Not on file Sexual activity: Not on file Lifestyle Physical activity: Days per week: Not on file Minutes per session: Not on file Stress: Not on file Relationships Social connections: Talks on phone: Not on file Gets together: Not on file Attends holiness service: Not on file Active member of club or organization: Not on file Attends meetings of clubs or organizations: Not on file Relationship status: Not on file Intimate partner violence: Fear of current or ex partner: Not on file Emotionally abused: Not on file Physically abused: Not on file Forced sexual activity: Not on file Other Topics Concerns: Not on file Social History Narrative Right handed PHYSICAL EXAM: Body mass index is 42.8 kg/m. Vitals: 10/05/19 1047 BP: 100/65 BP Location: right arm Patient Position: Sitting Cuff Size: large Pulse: 72 Resp: 14 Temp: 97.9 F (36.6 C) TempSrc: Oral SpO2: 94% Weight: 234 lb (106.1 kg) Height: 5' 2" (1.575 m) DIAGNOSIS: Chronic pain Intrathecal pump dysfunction ASSESSMENT/PLAN: Anisha Lindsay Is a 54 y.o. male who presents with chronic cancer related pain. Ms. Lindsay receives intrathecal opiates via pump for symptom relief. Her pump is has migrated within the pocket and is "flipping". Her pain management physician is unable to access the port to refill the pump. Pt will require surgery for pump revision. Will plan for revision of an intrathecal pump. The procedure was discussed in detail with the patient along with the technical aspects including catheter placement and pump location. The risks of surgery were discussed to include infection, bleeding, CSF leak, migration of catheter, spinal cord injury, continued pain, pain at pump site, and need for further surgery. All questions were answered andthe patient wishes to proceed. More than 30 minutes were spent in the care of this patient of which greater than 50% of the time was spent in direct face to face consultation. 5: 24 PM CSTdocumented in this encounter Plan of Treatment Date Type Specialty Care Team Description 10/09/2019 Appointment Neurosurgery Kaushal Arriola MD [address] [facility] 9th [address] [place] [address] [phone] Health Maintenance Due Date Last Done Comments COLON CANCER SCREENING: COLONOSCOPY 1965 MAMMOGRAM ANNUAL 1965 TETANUS SHOT (ADULT) 1978 BMI FOLLOW UP PLAN 1981 HEPATITIS C SCREENING 1981 HIV SCREENING 1981 CERVICAL CANCER SCREENING 3 YEAR FOLLOW UP 1984 MEDICARE AWV (Initial) 03/05/2013 FLU VACCINE > 6 MONTHS 04/05/2019 documented as of this encounter Results Not on filedocumented in this encounter Visit Diagnoses Diagnosis Malfunction of intrathecal infusion pump, initial encounter - Primary documented in this encounter Insurance Payer Benefit Plan / Subscriber ID Effective Dates Phone Address Type Group MEDICARE MEDICARE PART A xxxxxxxxxxx 2013-Present [address] Medicare [place] [address] documented as of this encounter
[2019-11-06] MEDS ORDERED: METHYLPREDNISOLONE 125 MG INJ ONE (00:59)
[2019-11-06] MEDS ORDERED: NA CHLORIDE 0.9% 500 ML ONE (00:59)
[2019-11-06] MEDS ORDERED: ONDANSETRON 4 MG/2 ML VIAL ONE (00:59)
[2019-11-06] MEDS ORDERED: LEVALBUTEROL 1.25 MG/3 ML NEB ONE (00:59)
[2019-11-06] MEDS ORDERED: MORPHINE 4 MG/ML SYR ONE (01:07)
[2019-11-06 01:16] LABS: Absolute Lymphocytes (CBC) 1.7 K/uL (0.7-4.9); Basophils % 0.1 % (0-1.3); Hematocrit 30.8 % (36.0-45.0); Lymphocytes % 19.4 % (15.3-44.8); RBC Red Blood Cell Count 3.29 M/uL (3.86-4.86)
[2019-11-06 01:33] LABS: BUN Blood Urea Nitrogen 32 mg/dL (7-18); Bicarbonate 27 mmol/L (21-32); Glucose Level 126 mg/dL (74-106); NT PRO-BNP 465 pg/mL (<125); Potassium 3.5 mmol/L (3.5-5.1); Sodium Level 142 mmol/L (136-145); Troponin (Emerg Dept Use Only) < 0.02 ng/mL (0.0-0.045)
[2019-11-06] MEDS ORDERED: HYDROMORPHONE HCL 1 MG/ML INJ ONE (01:35)
[2019-11-06 03:47] LABS: Urine Blood TRACE (NEG); Urine Glucose NEGATIVE (NEG); Urine Protein 1+ (NEG)
[2019-11-06] MEDS ORDERED: AZITHROMYCIN 500 MG INJ IVPB ONE (04:00)
[2019-11-06] MEDS ORDERED: NA CHLORIDE 0.9% 250 ML ONE (04:00)
[2019-11-06] MEDS ORDERED: CEFTRIAXONE/SWI 1gm 1 GM/10 ML SYR ONE (04:00)
--- NOTE | 2019-11-06 04:06 | ER ---
Nurse's Notes [facility] Name: Anisha Lindsay Age: 54 yrs Sex: Female : 1965 Arrival Date: 11/06/2019 Time: 00:22 Bed 20 Private MD: Diagnosis: Lung cancer;Dyspnea, unspecified;Chronic kidney disease (CKD) Presentation: 11/05 00:16 Chief complaint: Patient states: that she has a cough, on and off fever, upper abd/rib fc pain that started 3 days ago. Has recently gotten over pneumonia and thinks it may be back. Coronavirus screen: The patient has NOT traveled to [place] in the past 14 days. Proceed with normal triage procedures. The patient has NOT had contact with known and/or suspected case of Coronavirus. Proceed with normal triage procedures. Ebola Screen: Patient negative for fever greater than or equal to 101.5 degrees Fahrenheit, and additional compatible Ebola Virus Disease symptoms Patient denies exposure to infectious person. Patient denies travel to an Ebola-affected area in the 21 days before illness onset. Initial Sepsis Screen: Does the patient meet any 2 criteria? HR > 90 bpm. Yes Does the patient have a suspected source of infection? Yes: Productive cough/pneumonia If YES to both, name of provider notified: Bean Conrad MD Risk Assessment: Do you want to hurt yourself or someone else? Patient reports no desire to harm self or others. Onset of symptoms was November 03, 2019. Care prior to arrival: Medication(s) given: Albuterol Neb x 1, Atrovent Neb x 1. Transition of care: patient was not received from another setting of care. 00:16 Method Of Arrival: EMS: [facility] 00:16 Acuity: CHEN 2 fc Triage Assessment: 02:46 Respiratory: Reports shortness of breath at rest cough that is non-productive, Breath jv1 sounds with wheezes bilaterally. Onset: The symptoms/episode began/occurred three days ago, Historical: - Allergies: 00:46 Adhesives; fc 00:46 Celebrex; fc 00:46 Demerol; fc - Home Meds: 00:46 metoprolol tartrate 50 mg oral tab 1 tab 2 times per day [Active]; prednisone 20 mg fc Oral tab 1 tab 2 times per day [Active]; Protonix 40 mg oral TbEC 1 tab once daily [Active]; trazodone 100 mg Oral tab 1 tab nightly [Active]; sertraline 100 mg oral tab 1 tab nightly [Active]; albuterol sulfate 90 mcg/actuation inhalation HFAA 2 puffs as needed [Active]; Colestid Oral 1 packet as needed [Active]; levothyroxine 75 mcg oral tab 1 tab once daily [Active]; gabapentin 400 mg oral cap 1 cap bid prn [Active]; Lasix 40 mg oral tab 1 tab as needed [Active]; - PMHx: 00:46 CHF; CSF leak; Depression; Stage 4 Lung Cencer- currently on Chemo; COPD; fc Adenocarcinoma of the Lungs; Renal Disease; Hypertension; Rheumatoid Arthritis; Anxiety; Hypothyroidism; Myocardial infarction; osteo arthirtis; pericarditis; Pericardial Effusion; - PSHx: 00:46 Appendectomy; Cholecystectomy; Hysterectomy; Right upper lobectomy; Knee surgery; Right fc chest wall port a cath; Fentanyl Pain Pump; - Immunization history:: Last tetanus immunization: unknown, Flu vaccine is not up to date. - Social history:: Smoking status: Patient/guardian denies using tobacco, the patient reports quitting approximately 25 years ago, Patient/guardian denies using alcohol, street drugs. - Family history:: not pertinent. - Hospitalizations: : No recent hospitalization is reported. Screenin:16 Abuse screen: Denies threats or abuse. Nutritional screening: No deficits noted. fc Tuberculosis screening: No symptoms or risk factors identified. Fall Risk Fall in past 12 months (25 points). Secondary diagnosis (15 points) impaired mobility, No IV (0 pts). Ambulatory Aid- Crutches/Cane/Walker (15 pts). Gait- Weak (10 pts.). Mental Status- Overestimates/Forgets Limitations (15 pts.). Total Blevins Fall Scale indicates High Risk Score (45 or more points). Fall prevention measures have been instituted. Side Rails Up X 2 Placed Close to Nursing Station Frequent Obs/Assessments Occuring As available patient and family educated on Fall Prevention Program and Strategies. Assessment: 00:30 General: Appears distressed, uncomfortable, Behavior is cooperative, anxious, restless. jv1 Pain: Complains of pain in back and abdomen Pain does not radiate. Pain currently is 7 out of 10 on a pain scale. Neuro: Level of Consciousness is awake, alert, obeys commands, Oriented to person, place, time, situation, Paint Line Operator are equal bilaterally. Cardiovascular: Denies chest pain, Rhythm is sinus tachycardia. Respiratory: Airway is patent Respiratory effort is even, unlabored, Respiratory pattern is regular, symmetrical, Breath sounds with wheezes bilaterally. GI: Abdomen is round non-distended, obese, Bowel sounds present X 4 quads. : No signs and/or symptoms were reported regarding the genitourinary system. EENT:. EENT: No signs and/or symptoms were reported regarding the EENT system. Derm: Skin is intact, is healthy with good turgor. Musculoskeletal: Circulation, motion, and sensation intact. Capillary refill < 3 seconds. 01:30 Reassessment: Patient appears in no apparent distress at this time. No changes from jv1 previously documented assessment. Patient and/or family updated on plan of care and expected duration. Pain level reassessed. Patient is alert, oriented x 3, equal unlabored respirations, skin warm/dry/pink. 02:30 Reassessment: Patient appears in no apparent distress at this time. No changes from jv1 previously documented assessment. Patient and/or family updated on plan of care and expected duration. Pain level reassessed. Patient is alert, oriented x 3, equal unlabored respirations, skin warm/dry/pink. Patient states feeling better. 03:30 Reassessment: Patient appears in no apparent distress at this time. No changes from jv1 previously documented assessment. Patient and/or family updated on plan of care and expected duration. Pain level reassessed. Patient is alert, oriented x 3, equal unlabored respirations, skin warm/dry/pink. Patient states feeling better. 04:25 Reassessment: Patient appears in no apparent distress at this time. No changes from jv1 previously documented assessment. Patient and/or family updated on plan of care and expected duration. Pain level reassessed. Patient is alert, oriented x 3, equal unlabored respirations, skin warm/dry/pink. Patient states feeling better. Patient states symptoms have improved. 05:32 Reassessment: Patient appears in no apparent distress at this time. No changes from jv1 previously documented assessment. Patient and/or family updated on plan of care and expected duration. Pain level reassessed. Patient is alert, oriented x 3, equal unlabored respirations, skin warm/dry/pink. given report to Ms. Xiomara Hightower RN, pt going to 409 Patient states feeling better. Patient states symptoms have improved. 05:56 Reassessment: Dr. Steiner in the room with pt. jv1 Vital Signs: 00:16 BP 186 / 99; Pulse 112; Resp 24; Temp 99.5(O); Pulse Ox 98% on R/A; Weight 104.33 kg fc (R); Height 5 ft. 3 in. (160.02 cm) (R); Pain 7/10; 00:30 BP 190 / 99; Pulse 115; Resp 25; Temp 101; Pulse Ox 98% ; Pain 8/10; jv1 01:30 BP 180 / 70; Pulse 120; Resp 25; Temp 99; Pain 8/10; jv1 02:46 BP 118 / 70; Pulse 114; Resp 20; Temp 98; Pulse Ox 98% ; Pain 4/10; jv1 03:45 BP 115 / 75; Pulse 108; Resp 18; Temp 99; Pulse Ox 99% ; Pain 1/10; jv1 04:30 BP 120 / 75; Pulse 101; Resp 19; Temp 99; Pulse Ox 98% ; Pain 0/10; jv1 05:30 BP 110 / 75; Pulse 103; Resp 19; Temp 99; Pulse Ox 98% ; Pain 1/10; jv1 00:16 Body Mass Index 40.74 (104.33 kg, 160.02 cm) ED Course: 00:16 Arm band placed on Patient placed in an exam room, on a stretcher. fc 00:16 Patient has correct armband on for positive identification. Placed in gown. Bed in low fc position. Call light in reach. Side rails up X2. monitor technician on. Pulse ox on. NIBP on. 00:16 No provider procedures requiring assistance completed. fc 00:22 Patient arrived in ED. ds1 00:27 Bean Conrad MD is Attending Physician. rn 00:36 Triage completed. fc 00:38 Elizabeth Villa is Primary Nurse. wh 00:51 Accessed Port-a-Cath. using accessed w/ # 20 Kahn needle, ,sterile technique, per [facility] protocol. Good blood return. Flushes easily. 00:52 Initial lab(s) drawn, by me, sent to lab. First set of blood cultures drawn by me. bb 01:05 XRAY CXR (1 view) In Process Unspecified. EDMS 02:15 Blood Culture Adult (2) Sent. ds4 03:28 Urine Dipstick--Ancillary (enter results) Sent. ds4 03:28 Missed attempt(s): 22 gauge in right forearm. Bleeding controlled, band aid applied, ds4 catheter tip intact. 04:05 Amber Steiner MD is Hospitalizing Provider. rn 05:58 Patient admitted, IV remains in place. jv1 Administered Medications: 01:06 Drug: Xopenex (3) 1.25 mg Route: Inhalation; bb 02:06 Follow up: Response: No adverse reaction; Wheezing diminished jv1 01:06 Drug: SOLU-Medrol 125 mg Route: IVP; Site: Port-a-cath; bb 02:06 Follow up: Response: No adverse reaction jv1 01:06 Drug: NS 0.9% 500 ml Route: IV; Rate: bolus; Site: Port-a-cath; bb 01:45 Follow up: Response: No adverse reaction; IV Status: Completed infusion jv1 01:06 Drug: Zofran (Ondansetron) 4 mg Route: IVP; Site: Port-a-cath; bb 02:06 Follow up: Response: No adverse reaction; Nausea is decreased jv1 01:07 Drug: morphine 4 mg Route: IVP; Site: Port-a-cath; bb 01:37 Follow up: Response: No adverse reaction; Pain is decreased; RASS: Alert and Calm (0) jv1 01:33 Drug: Dilaudid 1 mg {Note: RASS 0.} Route: IVP; Site: Port-a-cath; bb 02:59 Follow up: Response: No adverse reaction; Pain is decreased; RASS: Alert and Calm (0) jv1 03:55 Drug: Rocephin - (cefTRIAXone) 1 grams Route: IVPB; Infused Over: 30 mins; Site: jv1 Port-a-cath; 03:58 Follow up: Response: No adverse reaction; IV Status: Completed infusion jv1 03:58 Drug: Zithromax 500 mg Route: IVPB; Infused Over: 1 hrs; Site: Port-a-cath; jv1 05:33 Follow up: Response: No adverse reaction; IV Status: Completed infusion jv1 Outcome: 04:05 Decision to Hospitalize by Provider. rn 05:57 Admitted to Tele via stretcher, room 409. jv1 05:57 Condition: improved 05:57 Instructed on the need for admit, Demonstrated understanding of instructions. 06:10 Patient left the ED. jv1 Signatures: Dispatcher [employer] EDMS Natalia Myrick, RN RN Anat Ruiz ds1 Donna White RN RN bb Nieto, Roman, MD MD rn Swanson, Donovan ds4 Elizabeth Villa Joyce, RN RN jv1
--- NOTE | 2019-11-06 04:07 | EDPHYS ---
Physician Documentation [facility] Name: Anisha Lindsay Age: 54 yrs Sex: Female : 1965 Arrival Date: 11/06/2019 Time: 00:22 Bed 20 Private MD: ED Physician Bean Conrad HPI: 11/05 02:11 This 54 yrs old Female presents to ER via EMS with complaints of Cough, rn Shortness Of Breath, Fever. 02:11 The patient or guardian reports cough, difficulty breathing, flu symptoms. Onset: The rn symptoms/episode began/occurred 3 day(s) ago. Severity of symptoms: At their worst the symptoms were moderate, in the emergency department the symptoms are unchanged. Modifying factors: The symptoms are alleviated by nothing, the symptoms are aggravated by nothing. The patient has experienced similar episodes in the past. The patient has not recently seen a physician. Reports known lung cancer, comes in today because of increased sob, subjective fever and cough. no trauma. Reports no longer getting radiation or chemo. . Historical: - Allergies: 00:46 Adhesives; fc 00:46 Celebrex; fc 00:46 Demerol; fc - Home Meds: 00:46 metoprolol tartrate 50 mg oral tab 1 tab 2 times per day [Active]; prednisone 20 mg fc Oral tab 1 tab 2 times per day [Active]; Protonix 40 mg oral TbEC 1 tab once daily [Active]; trazodone 100 mg Oral tab 1 tab nightly [Active]; sertraline 100 mg oral tab 1 tab nightly [Active]; albuterol sulfate 90 mcg/actuation inhalation HFAA 2 puffs as needed [Active]; Colestid Oral 1 packet as needed [Active]; levothyroxine 75 mcg oral tab 1 tab once daily [Active]; gabapentin 400 mg oral cap 1 cap bid prn [Active]; Lasix 40 mg oral tab 1 tab as needed [Active]; - PMHx: 00:46 CHF; CSF leak; Depression; Stage 4 Lung Cencer- currently on Chemo; COPD; fc Adenocarcinoma of the Lungs; Renal Disease; Hypertension; Rheumatoid Arthritis; Anxiety; Hypothyroidism; Myocardial infarction; osteo arthirtis; pericarditis; Pericardial Effusion; - PSHx: 00:46 Appendectomy; Cholecystectomy; Hysterectomy; Right upper lobectomy; Knee surgery; Right fc chest wall port a cath; Fentanyl Pain Pump; - Immunization history:: Last tetanus immunization: unknown, Flu vaccine is not up to date. - Social history:: Smoking status: Patient/guardian denies using tobacco, the patient reports quitting approximately 25 years ago, Patient/guardian denies using alcohol, street drugs. - Family history:: not pertinent. - Hospitalizations: : No recent hospitalization is reported. ROS: 02:11 Constitutional: + fever Eyes: Negative for injury, pain, redness, and discharge, Neck: rn Negative for injury, pain, and swelling, Cardiovascular: Negative for palpitations Respiratory: + for shortness of breath, cough, wheezing, and pleuritic chest pain, Abdomen/GI: Negative for abdominal pain, diarrhea, and constipation, MS/Extremity: Negative for injury and deformity, Skin: Negative for injury, rash, and discoloration, Neuro: Negative for headache, numbness, tingling, and seizure. Exam: 02:11 Constitutional: Awake, alert, + mild respiratory distress Head/Face: Normocephalic, rn atraumatic. ENT: dry MM, no stridor Cardiovascular: Tachycardic, regular, intact distal pulses Respiratory: + moderate tachypnea, + diffuse exp wheezing bilaterally Abdomen/GI: Soft, non-tender MS/ Extremity: Pulses equal, no cyanosis. Neurovascular intact. Full, normal range of motion. Equal circumference. Neuro: Awake and alert, GCS 15 Vital Signs: 00:16 BP 186 / 99; Pulse 112; Resp 24; Temp 99.5(O); Pulse Ox 98% on R/A; Weight 104.33 kg fc (R); Height 5 ft. 3 in. (160.02 cm) (R); Pain 7/10; 00:30 BP 190 / 99; Pulse 115; Resp 25; Temp 101; Pulse Ox 98% ; Pain 8/10; jv1 01:30 BP 180 / 70; Pulse 120; Resp 25; Temp 99; Pain 8/10; jv1 02:46 BP 118 / 70; Pulse 114; Resp 20; Temp 98; Pulse Ox 98% ; Pain 4/10; jv1 03:45 BP 115 / 75; Pulse 108; Resp 18; Temp 99; Pulse Ox 99% ; Pain 1/10; jv1 04:30 BP 120 / 75; Pulse 101; Resp 19; Temp 99; Pulse Ox 98% ; Pain 0/10; jv1 05:30 BP 110 / 75; Pulse 103; Resp 19; Temp 99; Pulse Ox 98% ; Pain 1/10; jv1 00:16 Body Mass Index 40.74 (104.33 kg, 160.02 cm) fc MDM: 00:27 Patient medically screened. rn 03:03 ED course: Paging her railroad brake repairer. CXR without acute findings, no oxygen requirement rn but still tachypneic and tachycardic. States feels better. . 03:34 ED course: Still waiting assistant director of admissions back from railroad brake repairer. . rn 04:03 Differential Diagnosis: Bronchitis Influenza Upper Respiratory Infection Viral Syndrome rn Pneumonia. Data reviewed: vital signs, nurses notes, lab test result(s), radiologic studies, plain films, and as a result, I will admit patient. Counseling: I had a detailed discussion with the patient and/or guardian regarding: the historical points, exam findings, and any diagnostic results supporting the discharge/admit diagnosis, lab results, radiology results, the need for further work-up and treatment in the hospital. Response to treatment: the patient's symptoms have mildly improved after treatment, and as a result, I will admit patient. Admission orders: after a detailed discussion of the patient's condition and case, the admit orders are written by me. ED course: Pt improved, no call back from her railroad brake repairer after 3 pages, discussed with patient, she states would rather be admitted here since we didn't find anything new. . 11/05 00:28 Order name: Blood Culture Adult (2) rn 11/05 00:28 Order name: BMP; Complete Time: 02:16 rn 11/05 00:28 Order name: CBC with Diff; Complete Time: 02:16 rn 11/05 00:28 Order name: NT PRO-BNP; Complete Time: 02:16 rn 11/05 00:28 Order name: Troponin (emerg Dept Use Only); Complete Time: 02:16 rn 11/05 00:28 Order name: Flu; Complete Time: 02:16 rn 11/05 00:38 Order name: Lactate; Complete Time: 02:16 rn 11/05 00:38 Order name: Procalcitonin; Complete Time: 02:16 rn 11/05 02:17 Order name: Urine Dipstick--Ancillary (enter results); Complete Time: 03:50 ds4 11/05 03:57 Order name: Lactate Sepsis 2 HR Follow-up; Complete Time: 04:01 EDMS 11/05 05:38 Order name: CBC with Automated Diff EDMS 11/05 05:38 Order name: CBC with Automated Diff EDMS 11/05 05:38 Order name: Comprehensive Metabolic Panel EDMS 11/05 05:38 Order name: Comprehensive Metabolic Panel EDMS 11/05 00:28 Order name: XRAY CXR (1 view); Complete Time: 04:28 rn 11/05 00:28 Order name: EKG; Complete Time: 00:29 rn 11/05 05:38 Order name: Troponin I EDMS 11/05 05:38 Order name: Troponin I EDMS 11/05 05:38 Order name: Troponin I EDMS 11/05 05:38 Order name: Troponin I EDMS 11/05 05:39 Order name: Sputum Culture EDMS 11/05 05:43 Order name: Thorax Wo Con; Complete Time: 04:29 EDMS 11/05 00:28 Order name: Cardiac monitoring; Complete Time: 02:13 rn 11/05 00:28 Order name: EKG - Nurse/Tech; Complete Time: 02:13 rn 11/05 00:28 Order name: Labs collected and sent; Complete Time: 01:07 rn 11/05 00:28 Order name: O2 Per Protocol; Complete Time: 01:07 rn 11/05 00:28 Order name: O2 Sat Monitoring; Complete Time: 01:07 rn 11/05 05:38 Order name: CONS Pharmacy Consult EDOK 11/05 05:38 Order name: Physical Therapy Consult EDOK 11/05 05:38 Order name: Full Liquid EDOK Administered Medications: 01:06 Drug: Xopenex (3) 1.25 mg Route: Inhalation; bb 02:06 Follow up: Response: No adverse reaction; Wheezing diminished jv1 01:06 Drug: SOLU-Medrol 125 mg Route: IVP; Site: Port-a-cath; bb 02:06 Follow up: Response: No adverse reaction jv1 01:06 Drug: NS 0.9% 500 ml Route: IV; Rate: bolus; Site: Port-a-cath; bb 01:45 Follow up: Response: No adverse reaction; IV Status: Completed infusion jv1 01:06 Drug: Zofran (Ondansetron) 4 mg Route: IVP; Site: Port-a-cath; bb 02:06 Follow up: Response: No adverse reaction; Nausea is decreased jv1 01:07 Drug: morphine 4 mg Route: IVP; Site: Port-a-cath; bb 01:37 Follow up: Response: No adverse reaction; Pain is decreased; RASS: Alert and Calm (0) jv1 01:33 Drug: Dilaudid 1 mg {Note: RASS 0.} Route: IVP; Site: Port-a-cath; bb 02:59 Follow up: Response: No adverse reaction; Pain is decreased; RASS: Alert and Calm (0) jv1 03:55 Drug: Rocephin - (cefTRIAXone) 1 grams Route: IVPB; Infused Over: 30 mins; Site: jv1 Port-a-cath; 03:58 Follow up: Response: No adverse reaction; IV Status: Completed infusion jv1 03:58 Drug: Zithromax 500 mg Route: IVPB; Infused Over: 1 hrs; Site: Port-a-cath; jv1 05:33 Follow up: Response: No adverse reaction; IV Status: Completed infusion jv1 Disposition: 11/06/19 04:05 Hospitalization ordered by Amber Steiner for Inpatient Admission. Preliminary diagnosis are Lung cancer, Dyspnea, unspecified, Chronic kidney disease (CKD). - Bed requested for Telemetry/MedSurg (Inpatient). - Status is Inpatient Admission. jv1 - Condition is Fair. - Problem is an ongoing problem. - Symptoms have improved. Signatures: Dispatcher [employer] EDOK Dilma Godinez RN RN mw Chretien, Felicia, RN RN fc Ballard, Brenda, RN RN bb Nieto, Roman, MD MD rn Vicente, Joyce, RN RN jv1 Corrections: (The following items were deleted from the chart) 04:47 04:05 Hospitalization Ordered by Amber Steiner MD for Inpatient Admission. Preliminary diagnosis is Lung cancer; Dyspnea, unspecified; Chronic kidney disease (CKD). Bed requested for Telemetry/MedSurg (Inpatient). Status is Inpatient Admission. Condition is Fair. Problem is an ongoing problem. Symptoms have improved. rn 06:10 04:47 11/06/2019 04:05 Hospitalization Ordered by Amber Steiner MD for Inpatient jv1 Admission. Preliminary diagnosis is Lung cancer; Dyspnea, unspecified; Chronic kidney disease (CKD). Bed requested for Telemetry/MedSurg (Inpatient). Status is Inpatient Admission. Condition is Fair. Problem is an ongoing problem. Symptoms have improved. mw
[2019-11-06] MEDS ORDERED: ALBUTEROL 2.5 MG/3 ML NEB SOL NEB PRN (05:31)
[2019-11-06] MEDS ORDERED: ACETAMINOPHEN 500 MG TAB PO PRN (05:31)
[2019-11-06] MEDS ORDERED: ONDANSETRON 4 MG/2 ML VIAL IV PRN (05:31)
[2019-11-06] MEDS ORDERED: MORPHINE 2 MG/ML SYR IV PRN (05:31)
[2019-11-06] MEDS ORDERED: GUAIFENESIN/DM 5 ML UCUP PO PRN (05:35)
[2019-11-06] MEDS ORDERED: Oxycodone HCl/Acetaminophen 1 TAB TAB PO PRN (05:35)
[2019-11-06] MEDS ORDERED: HYDRALAZINE HCL 20 MG/ML VIAL IV PRN (05:35)
--- NOTE | 2019-11-06 05:51 | EKG ---
Test Date: 2019-11-06 Test Time: 00:28:58 Tier Truck Driver: MANUEL MEASUREMENT RESULTS: Intervals: Rate: 108 TX: 144 QRSD: 78 QT: 318 QTc: 426 [place]: P: 43 TX: 144 QRS: 67 T: 51 INTERPRETIVE STATEMENTS: Sinus tachycardia Nonspecific ST and T wave abnormality Abnormal ECG Compared to ECG 09/13/2019 14:56:35 ST (T wave) deviation now present Sinus rhythm no longer present Myocardial infarct finding no longer present Electronically Signed On 11-06-19 05:51:13 CABLE COVERER by Tim Tsang
[2019-11-06] MEDS ORDERED: METHYLPREDNISOLONE 125 MG INJ IV SCH (06:11)
--- NOTE | 2019-11-06 06:18 | P.HP ---
Certification for Inpatient With expected LOS: >2 Midnights Practitioner: I am a practitioner with admitting privileges, knowledge of patient current condition, hospital course, and medical plan of care. Services: Services provided to patient in accordance with Admission requirements found in Title 42 Section 412.3 of the Code of Federal Regulations Patient History Date of Service: 11/06/19 Reason for admission: Shortness of breath History of Present Illness: 48 cc old female with hx of HTN , RA, depression , right lung cancer s /p lobectomy in 2018 with recurrent left upper lobe cancer completed chemo last year and now with stage IV disease , follows with oncology at [facility] , s/p recent persistent kian-tumor pneumonitis treated at 2 month ago with follow up CT last month showing decreasing opacity size but patient was continued on tapering doses of steroids , she is due to finish course today but presented for worsening cough , SOB at rest despite home 2 L 02 use . She denies any worsening body swelling . Admit to worsening wheezing , few whitish sputum , recurrent pleuritic chest pain . in ER she was noted with marked wheezing . she states she feels better now after nebs . Allergies celecoxib [From Celebrex] Allergy (Verified 07/02/16 02:13) unknown meperidine [From Demerol] Allergy (Verified 07/02/16 02:13) unknown Home Medications: Sertraline [Zoloft*] 100 mg PO BEDTIME 01/28/19 Temazepam 30 mg PO BEDTIME 01/28/19 Trazodone HCl [Desyrel] 100 mg PO TID 01/28/19 Gabapentin 800 mg PO TID 03/17/19 Levothyroxine [Synthroid*] 50 mcg PO DAILY 03/17/19 Benzonatate [Tessalon Perle*] 100 mg PO Q6HP PRN 06/06/19 Hydrocodone 10/APAP 325 [[place] 10/325*] 1 tab PO Q6HP PRN 06/06/19 Ipratropium/Albuterol Sulfate [Iprat-Albut 0.5-3(2.5) mg/3 ml] 3 ml NEB DAILY Metoprolol Succinate [Toprol Xl*] 50 mg PO DAILY 06/06/19 Morphine [Morphine Sulfate] 2 mg IV Q4HP PRN 06/06/19 Ondansetron [Zofran (Odt)*] 4 mg PO Q8HP 06/06/19 Polyethylene Glycol 3350 [Miralax] 17 gm PO 1X PRN 06/06/19 - Past Medical/Surgical History Diabetic: No -: Rheumatoid arthritis -: GERD -: HTN -: Stage IV lung cancer -: CAD -: Chronic pericardial effusion -: Hypothyroidism -: Depression with anxiety -: Barretts esophagus -: Chronic pain with pain pump -: Hysterectomy -: Total L knee replacement -: lap mehul, lap appy -: pain pump R abdomen -: L lobe thyroidectomy -: R lobectomy -: tonsillectomy -: 3 corneal transplants Psychosocial/ Personal History: Patient lives at home - Family History Father -: Heart disease, Other (see notes) Notes: rheumatoid arthritis Mother -: Cancer Notes: : breast and throat ca Brother -: Cancer Notes: 2 brothers from ca lung ca, colon ca Sister -: Cancer Notes: lung ca - Social History Alcohol use: No CD- Drugs: No Caffeine use: Yes Review of Systems Eyes: Eyelid Inflammation (left eye ), Unremarkable ENT: Unremarkable Respiratory: Cough, Dry, Shortness of Breath Cardiovascular: Chest Pain, Paroxysmal Noc. Dyspnea Gastrointestinal: Unremarkable Musculoskeletal: Unremarkable Integumentary: Unremarkable Physical Examination - Physical Exam General: Alert, Mild distress, Obese HEENT: Atraumatic, Normocephalic, Other (left cornea opacity) Neck: 2+ carotid pulse no bruit, JVD not distended Respiratory: Normal air movement, Expiratory wheezes, Other (right chemo port ) Cardiovascular: No edema, Regular rate/rhythm, Normal S1 S2 Capillary refill: <2 Seconds Gastrointestinal: Normal bowel sounds, Soft and benign, Non-distended Musculoskeletal: No clubbing, No swelling Neurological: Normal gait, Normal speech, Normal strength at 5/5 x4 extr - Studies Laboratory Data (last 24 hrs) 11/06/19 00:52: WBC 8.7, Hgb 10.3 L, Hct 30.8 L, Plt Count 133 L 11/06/19 00:52: Sodium 142, Potassium 3.5, BUN 32 H, Creatinine 2.11 H, Glucose 126 H Microbiology Data (last 24 hrs): 11/06/19 01:11 Nasopharnyx Influenza Type A Antigen Screen - Final 11/06/19 01:11 Nasopharnyx Influenza Type B Antigen Screen - Final Assessment and Plan - Problems (Diagnosis) (1) Pneumonitis Current Visit: Yes Status: Acute (2) Acute kidney injury superimposed on CKD Current Visit: No Status: Acute (3) Chest pain Onset Date: 07/02/16 Current Visit: No Status: Acute Qualifiers: Ischemic chest pain type: other angina pectoris type (4) Lung cancer Current Visit: No Status: Chronic Qualifiers: Laterality: unspecified laterality Lung location: unspecified part of lung Qualified Code(s): C34.90 - Malignant neoplasm of unspecified part of unspecified bronchus or lung - Plan # Presumed left Lobe Pneumonitis - noted on prior CT report from - acute SOB may be due to recurrence - will obtain repeat CT chest today - start empirical steroids , rocephin abx -c/w oxygen supplementation - if persistent symptoms , consider NM lung scan to r/o PE # CKD - elevated creatinine at 2.11 -will consult renal team - appears to be at baseline # dvt PROP- SC Lovenox # HTN -controlled , resume home regime # Advance directive -pt wants trial of full code - Advance Directives Does patient have a Living Will: No Does patient have a Durable POA for Healthcare: Yes - Code Status/Comfort Care Code Status Assessed: Yes (trial of full code ) Physician Review: Patient Assessed, Agree with Above Assessment and Plan
[2019-11-06 06:22] VITALS: BMI 40.9
[2019-11-06] MEDS: INSULIN -REGULAR HUMAN 50 UNIT/0.5 ML ML SQ SCH ×4 (07:30→21:00)
[2019-11-06] MEDS ORDERED: LEVALBUTEROL 0.63 MG/3 ML NEB NEB PRN (07:36)
[2019-11-06] MEDS ORDERED: ALBUTEROL 2.5 MG/3 ML NEB SOL NEB SCH (08:00)
[2019-11-06] MEDS: GUAIFENESIN 600 MG SA TAB PO SCH ×2 (08:16→22:03)
[2019-11-06] MEDS: HEPARIN 5000 UNIT/ML 1 ML VIAL SQ SCH ×2 (08:17→16:18)
[2019-11-06] MEDS: HYDROCODONE/APAP 7.5/325 MG TAB PO PRN ×2 (08:24→14:30)
[2019-11-06] MEDS: predniSONE 20 MG TAB PO SCH ×2 (09:06→22:01)
[2019-11-06] MEDS: DOXYCYCLINE 100 MG CAP PO SCH ×2 (09:06→22:00)
[2019-11-06] MEDS: FUROSEMIDE 20 MG/ 2ML VIAL IV SCH ×2 (09:06→16:17)
[2019-11-06] MEDS: ARFORMOTEROL TARTRATE 15 MCG/2 ML VIAL.NEB NEB SCH ×2 (09:40→20:05)
[2019-11-06] MEDS: IPRATROPIUM BROM 0.5MG/2.5ML NEB SCH ×3 (09:40→20:05)
--- NOTE | 2019-11-06 10:08 | RAD REPORT ---
EXAM DESCRIPTION: CT - Thorax Wo Con - 11/06/2019 7:37 am CLINICAL HISTORY: Lung ca , r/o superimposed pna COMPARISON: CT chest without contrast 06/06/2019. TECHNIQUE: Axial CT imaging of the chest performed. Reformatted coronal and sagittal images obtained . This exam was performed according to our departmental dose-optimization program which includes automa evelin exposure control, adjustment of the mA and/or kV according to patient size and/or use of iterativ e reconstruction technique FINDINGS: HEART/VESSELS: Heart is normal in size. Small pericardial effusion. Normal caliber thoracic aorta. N ormal caliber main pulmonary artery. MEDIASTINUM AND UMA: Nonenlarged mediastinal and hilar lymph nodes. Normal appearance of the centra l airways. Normal esophagus. Right internal jugular central venous catheter is at the superior cavoat rial junction. LUNGS/PLEURA: There is a wedge-shaped area of consolidation in the left upper lobe with air bronchog ling and mild bronchiectasis pneumonia and atelectasis. Multifocal groundglass and nodular parenchyma l opacities scattered within both lower lobes. Faint centrilobular nodules are seen in the lingula. T here is no edema. No pneumothorax. Subpleural bleb in the anterior right lower lobe and the superior segment. There is a 4 mm calcified granuloma within the right lower lobe. There is no pleural fluid. No edema or pneumothorax. CHEST WALL/SOFT TISSUES: There is a right chest wall Mediport, not fully imaged. The catheter extend s into the upper right atrium region. No axillary adenopathy. Intact sternum. There are significant h ypertrophic endplate changes in the mid to lower thoracic spine. Old posterior right rib fractures. T here is slight bulging of the lateral right lower lobe within the interspace between right ribs seven and eight. UPPER ABDOMEN: The imaged liver, spleen, pancreas, adrenal glands, kidneys appear normal. Gallbladde r has been resected. IMPRESSION: 1. Multifocal bilateral pneumonia. There is a dense wedge-shaped area of consolidation w ithin the left upper lobe compatible with pneumonia/atelectasis with bronchiectasis. There could be u nderlying neoplasia within this area of consolidation. 2. Small pericardial effusion. Electronically signed by: Jaqui Joshua DO 11/06/2019 7:19 AM SPINNING AND WINDING SUPERVISOR Due to temporary technical issues with the PACS/Fluency reporting system, reports are being signed by the in house radiologist as a courtesy to ensure prompt reporting. The interpreting radiologist is f ully responsible for the content of the report.
--- NOTE | 2019-11-06 12:23 | P.CNS ---
Date of Consult: 11/06/19 Chief Complaint: Shortness of breath History of Present Illness: Patient is 54 years of age she is status post lobectomy in radiation therapy apparently she was treated for post radiation pneumonitis with a high doses of steroids in having problems since September was seen by cardiothoracic surgeon recently prescribed her on 20 b.i.d. of prednisone got better and then got worse again worsening shortness of breath uses nebulized bronchodilators Allergies celecoxib [From Celebrex] Allergy (Verified 07/02/16 02:13) unknown meperidine [From Demerol] Allergy (Verified 07/02/16 02:13) unknown Home Medications: Sertraline [Zoloft*] 100 mg PO BEDTIME 01/28/19 Temazepam 30 mg PO BEDTIME 01/28/19 Trazodone HCl [Desyrel] 100 mg PO BID 01/28/19 Gabapentin 400 mg PO BID 03/17/19 Levothyroxine [Synthroid*] 50 mcg PO DAILY 03/17/19 Benzonatate [Tessalon Perle*] 100 mg PO Q6HP PRN 06/06/19 Ipratropium/Albuterol Sulfate [Iprat-Albut 0.5-3(2.5) mg/3 ml] 3 ml NEB Q4H PRN 06/06/19 Metoprolol Succinate [Toprol Xl*] 50 mg PO BID 06/06/19 Ondansetron [Zofran (Odt)*] 4 mg PO Q8HP PRN 06/06/19 Polyethylene Glycol 3350 [Miralax] 17 gm PO 1X PRN 06/06/19 Cholestyramine (with Sugar) [Cholestyramine Packet] 1 packet PO TID PRN Diphenox/Atropine [Lomotil*] 1 tab PO QID PRN 11/06/19 LORazepam [Lorazepam] 1 tab PO Q6H PRN 11/06/19 - Past Medical/Surgical History Diabetic: No -: Rheumatoid arthritis -: GERD -: HTN -: Stage IV lung cancer -: CAD -: Chronic pericardial effusion -: Hypothyroidism -: Depression with anxiety -: Barretts esophagus -: Chronic pain with pain pump -: Hysterectomy -: Total L knee replacement -: lap mehul, lap appy -: pain pump R abdomen -: L lobe thyroidectomy -: R lobectomy -: tonsillectomy -: 3 corneal transplants Psychosocial/ Personal History: Patient lives at home - Family History Father Medical History: Heart disease, Other (see notes) Notes: rheumatoid arthritis Mother Medical History: Cancer Notes: : breast and throat ca Brother Medical History: Cancer Notes: 2 brothers from ca lung ca, colon ca Sister Medical History: Cancer Notes: lung ca - Social History Smoking Status: Never smoker Alcohol use: No CD- Drugs: No Caffeine use: Yes Place of Residence: Home Review of Systems 10-point ROS is otherwise unremarkable General: Weakness Respiratory: Cough, Shortness of Breath Physical Examination Temp Pulse Resp BP Pulse Ox 98.5 F 96 H 18 131/84 96 11/06/19 08:00 11/06/19 09:06 11/06/19 09:24 11/06/19 09:06 11/06/19 09:24 General: Alert, Oriented x3 HEENT: Atraumatic Neck: Supple Respiratory: Expiratory wheezes Cardiovascular: No edema, Regular rate/rhythm, Normal S1 S2 Gastrointestinal: Normal bowel sounds, Soft and benign, No ascites Musculoskeletal: No clubbing, No swelling Laboratory Data (last 24 hrs) 11/06/19 00:52: WBC 8.7, Hgb 10.3 L, Hct 30.8 L, Plt Count 133 L 11/06/19 00:52: Sodium 142, Potassium 3.5, BUN 32 H, Creatinine 2.11 H, Glucose 126 H - Problems (1) Shortness of breath Current Visit: Yes Status: Acute Plan: Patient is 54 years of age admitted with worsening dyspnea since September she has been treated for stage IV lung cancer already has a lobectomy got some radiation on the left side CT scan chest x-ray shows radiation changes in addition patient has chronic renal failure may be an element of volume overload I have added Lasix no evidence of sepsis white count is normal continue with prednisone and bronchodilators of reduce the dose of steroids in added doxycycline
--- NOTE | 2019-11-06 12:46 | RAD REPORT ---
EXAM DESCRIPTION: RAD - Chest Single View - 11/06/2019 2:35 am CLINICAL HISTORY: 54 years Female, known lung cancer; Dyspnea COMPARISON: CT chest performed on 06/06/2019. The prior chest x-ray from 09/13/2019 was not available f or review TECHNIQUE: Single portable x-ray view of the chest performed on 11/06/2019 12:57 AM FINDINGS: The lungs are well expanded. There is a focal ovoid opacity in the left upper lobe which m ay correspond to the patient's reported lung cancer. The lungs are otherwise grossly clear. There is no evidence of a pneumothorax. The cardiac silhouette is normal in size and configuration. The mediastinal contours are normal. No acute osseous abnormality is identified. There is an old fracture of the posterior right 5th rib. No focal soft tissue abnormalities are seen. Lines and tubes: A right IJ Hdyxge-r-[id number] catheter is present. The tip projects over the region of the distal superior vena cava. IMPRESSION: 1. Focal ovoid opacity in the left upper lobe which may correspond to the patient's repo rted lung cancer. 2. The tip of the right IJ Djrzzk-[id number]-Msrx catheter overlies the region of the distal SVC. 3. Old healed fracture of the posterior right 5th rib. Electronically signed by: Tierney Umana DO 11/06/2019 2:22 AM AIR TUCKER Due to temporary technical issues with the PACS/Fluency reporting system, reports are being signed by the in house radiologist as a courtesy to ensure prompt reporting. The interpreting radiologist is f ully responsible for the content of the report.
[2019-11-06] MEDS ORDERED: DIPHENOX/ATROP SULF 1 TAB PO PRN (14:40)
--- NOTE | 2019-11-06 14:47 | P.PN ---
Subjective Date of Service: 11/06/19 Primary Care Provider: Dr. Weir(CVT Surgery); Pulmonary-Dr. Milligan Chief Complaint: Shortness of breath Subjective: Improving Physical Examination - Vital Signs Temperature: 97.1 F Blood Pressure: 118/68 Pulse: 90 Respirations: 19 Pulse Ox (%): 92 - Physical Exam General: Alert, In no apparent distress, Cooperative HEENT: Atraumatic Neck: Supple Respiratory: Crackles/rales (Bilateral), Expiratory wheezes (Bilateral) Cardiovascular: Normal pulses, Regular rate/rhythm Gastrointestinal: Normal bowel sounds, Soft and benign, Non-distended, No tenderness, No masses, No rebound, No guarding Musculoskeletal: No tenderness, No warmth Neurological: Normal speech, Normal strength at 5/5 x4 extr, Normal tone, Normal affect - Studies Laboratory Data (last 24 hrs) 11/06/19 00:52: WBC 8.7, Hgb 10.3 L, Hct 30.8 L, Plt Count 133 L 11/06/19 00:52: Sodium 142, Potassium 3.5, BUN 32 H, Creatinine 2.11 H, Glucose 126 H Microbiology Data (last 24 hrs): 11/06/19 01:11 Nasopharnyx Influenza Type A Antigen Screen - Final 11/06/19 01:11 Nasopharnyx Influenza Type B Antigen Screen - Final Medications List Reviewed: Yes Assessment & Plan Discharge Plan: Home Plan to discharge in: 24 Hours Physician Review Additional Text: Impression: Shortness of breath 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 Will adjust IV steroid to oral. Pulmonology has evaluated patient. Patient given IV Lasix. Additional doxycycline added. Patient has home oxygen. Will monitor closely. Recheck chest x-ray tomorrow. Patient will likely require higher dose steroids for a longer period. Patient continues with radiation. Patient will need follow up with oncology. Will reassess tomorrow. Anticipate home in the next 24-48 hr with clinical improvement. Hypertension: Continue medication. Will monitor and adjust appropriately. GERD: Continue medication. Chronic renal disease stage III: Overall stable. Will monitor closely. Depression with anxiety: Restart home medication. Chronic pain: Will provide breakthrough medication. Patient with pain pump. Hypothyroidism: Continue medication. Anemia of chronic disease: Will monitor closely. Overall stable. Time Spent Managing Pts Care (In Minutes): 55
[2019-11-06] MEDS ORDERED: CHOLESTYRAMINE/ASP 4 GM/PKT PO PRN (16:00)
[2019-11-06] MEDS: LORAZEPAM 1 MG TABLET PO PRN (16:28)
[2019-11-06] MEDS: LEVALBUTEROL 0.63 MG/3 ML NEB NEB SCH (20:05)
[2019-11-06] MEDS ORDERED: GABAPENTIN 400 MG PO SCH (21:00)
[2019-11-06] MEDS ORDERED: HOME MED 1 EA UNK (Temazepam [Temazepam] 30 MG) PO SCH (21:00)
[2019-11-06] MEDS ORDERED: TRAZODONE HCL 100 MG PO SCH (21:00)
[2019-11-06] MEDS ORDERED: HYDROCODONE/APAP 10/325 TAB PO PRN (21:24)
[2019-11-06] MEDS: GABAPENTIN 400 MG CAP PO SCH (21:59)
[2019-11-06] MEDS: TEMAZEPAM 15 MG CAP PO SCH (21:59)
[2019-11-06] MEDS: HYDROCODONE/APAP 10/325 TAB PO PRN (22:00)
[2019-11-06] MEDS ORDERED: HYDROCODONE/APAP 10/325 TAB ONE (22:00)
[2019-11-06] MEDS: BENZONATATE 100 MG CAP PO PRN (22:01)
[2019-11-06] MEDS: SERTRALINE HCL 50 MG TAB PO SCH (22:01)
[2019-11-06] MEDS: METOPROLOL XL 50 MG TAB PO SCH (22:02)
[2019-11-06] MEDS: TRAZODONE 50 MG TABLET PO SCH (22:03)
[2019-11-07] MEDS: HEPARIN 5000 UNIT/ML 1 ML VIAL SQ SCH ×3 (00:06→15:54)
[2019-11-07] MEDS ORDERED: IPRATROPIUM BROM 0.5MG/2.5ML ONE (03:20)
[2019-11-07] MEDS ORDERED: LEVALBUTEROL 0.63 MG/3 ML NEB ONE (03:20)
[2019-11-07] MEDS: IPRATROPIUM BROM 0.5MG/2.5ML NEB SCH ×3 (03:35→07:45)
[2019-11-07] MEDS: LEVALBUTEROL 0.63 MG/3 ML NEB NEB SCH ×3 (03:35→07:45)
[2019-11-07 04:24] LABS: Absolute Lymphocytes (CBC) 0.8 K/uL (0.7-4.9); Basophils % 0.1 % (0-1.3); Lymphocytes % 12.2 % (15.3-44.8); MPV 8.9 fL (7.6-11.3); RBC Red Blood Cell Count 3.14 M/uL (3.86-4.86)
[2019-11-07 04:43] LABS: Bilirubin Total 0.3 mg/dL (0.2-1.0); Potassium 4.1 mmol/L (3.5-5.1); Protein, Total 7.2 g/dL (6.4-8.2)
[2019-11-07] MEDS: HYDROCODONE/APAP 10/325 TAB PO PRN ×2 (04:54→15:53)
[2019-11-07] MEDS: LEVOTHYROXINE SOD 0.05 MG TABLET PO SCH ×2 (04:58→05:14)
[2019-11-07] MEDS: BENZONATATE 100 MG CAP PO PRN ×2 (04:58→15:54)
[2019-11-07] MEDS: LORAZEPAM 1 MG TABLET PO PRN ×2 (05:13→15:53)
[2019-11-07] MEDS ORDERED: CEFTRIAXONE/SWI 1gm 1 GM/10 ML SYR IV SCH (06:00)
[2019-11-07] MEDS: INSULIN -REGULAR HUMAN 50 UNIT/0.5 ML ML SQ SCH ×4 (07:30→21:00)
[2019-11-07] MEDS: ARFORMOTEROL TARTRATE 15 MCG/2 ML VIAL.NEB NEB SCH ×2 (07:45→19:50)
--- NOTE | 2019-11-07 07:55 | P.DS ---
Admission Date: 11/06/19 Discharge Date: 11/07/19 Primary Care Provider: Dr. Weir(CVT Surgery); Pulmonary-Dr. Milligan Disposition: ROUTINE DISCHARGE Discharge Condition: GOOD Reason for Admission: Shortness of breath Consultations: Pulmonary-Dr. Valente Procedures: CT Scan: FINDINGS: HEART/VESSELS: Heart is normal in size. Small pericardial effusion. Normal caliber thoracic aorta. Normal caliber main pulmonary artery. MEDIASTINUM AND UMA: Nonenlarged mediastinal and hilar lymph nodes. Normal appearance of the central airways. Normal esophagus. Right internal jugular central venous catheter is at the superior cavoatrial junction. LUNGS/PLEURA: There is a wedge-shaped area of consolidation in the left upper lobe with air bronchograms and mild bronchiectasis pneumonia and atelectasis. Multifocal groundglass and nodular parenchymal opacities scattered within both lower lobes. Faint centrilobular nodules are seen in the lingula. There is no edema. No pneumothorax. Subpleural bleb in the anterior right lower lobe and the superior segment. There is a 4 mm calcified granuloma within the right lower lobe. There is no pleural fluid. No edema or pneumothorax. CHEST WALL/SOFT TISSUES: There is a right chest wall Mediport, not fully imaged. The catheter extends into the upper right atrium region. No axillary adenopathy. Intact sternum. There are significant hypertrophic endplate changes in the mid to lower thoracic spine. Old posterior right rib fractures. There is slight bulging of the lateral right lower lobe within the interspace between right ribs seven and eight. UPPER ABDOMEN: The imaged liver, spleen, pancreas, adrenal glands, kidneys appear normal. Gallbladder has been resected. IMPRESSION: 1. Multifocal bilateral pneumonia. There is a dense wedge-shaped area of consolidation within the left upper lobe compatible with pneumonia/ atelectasis with bronchiectasis. There could be underlying neoplasia within this area of consolidation. 2. Small pericardial effusion. ECHO: Medical Problem List: Shortness of breath secondary to multifocal bilateral pneumonia with possible element of acute on chronic diastolic CHF complicated with stage IV lung cancer with prior lobectomy Hypertension GERD Chronic renal disease stage III Depression with anxiety Chronic pain Hypothyroidism Anemia of chronic disease Brief History of Present Illness: 54-year-old female presented with shortness of breath, cough, congestion. Patient with stage IV lung cancer with prior right lobectomy. Patient had been treated for pneumonitis. Patient admitted for further evaluation and treatment. Hospital Course: Patient presented with shortness of breath secondary to multifocal bilateral pneumonia with possible element of acute on chronic diastolic CHF. Patient with complicated history of stage IV lung cancer with prior lobectomy and pneumonitis. Pulmonology was consulted. Patient admitted for treatment. Patient responded well to antibiotic therapy and diuresis. Patient continued with nebulized medication. Patient has significantly improved. CT scan did show multifocal bilateral pneumonia. There was some question of a small pericardial effusion. Echocardiogram performed. Case discussed at length with pulmonology. Patient has significantly improved. Less short of breath noted. Patient ambulating well. At discharge she will continue with. Patient will also continue with albuterol 1 unit dose 3 times a day as needed for shortness of breath along with Atrovent 1 unit dose 3 times a day as needed for shortness of breath. Patient will continue with home oxygen to maintain sats above 93%. Recommend follow up the with her director of placement an oncology team. Patient with hypertension. This has remained stable. At discharge she will continue with her medication. Recommend to maintain blood pressures less 150/ 80. Further adjustment can be done by her PCP. Patient with GERD. At discharge she will continue with her medication. Patient with chronic renal disease stage II. This has remained stable. Recommend to recheck lab-BMP to monitor her progress. Recommend no further use of nonsteroidal anti-inflammatories. Future medications will need to be renally dose. Recommend follow up with Nephrology to further monitor. Patient with chronic pain. Patient currently has pain pump. Patient will continue with her current medications. Recommend follow up with her pain specialist to further monitor and address. Patient with depression with anxiety. Patient may continue with her current medication. Patient with hypothyroidism. At discharge she will continue with her medication. Patient with anemia of chronic disease. This has remained stable. Recommend to recheck lab-CBC in 2-4 weeks to monitor her progress. Vital Signs/Physical Exam: Temp Pulse Resp BP Pulse Ox 97.6 F 72 18 115/61 97 11/07/19 04:00 11/07/19 04:00 11/07/19 05:54 11/07/19 04:00 11/07/19 04:54 General: Alert, In no apparent distress, Oriented x3, Cooperative HEENT: Atraumatic Neck: Supple Respiratory: Crackles/rales (Improved), Expiratory wheezes (Improved, better aeration bilateral) Cardiovascular: Normal pulses, Regular rate/rhythm Gastrointestinal: Normal bowel sounds, Soft and benign, Non-distended Musculoskeletal: No tenderness, No warmth Integumentary: No warmth, No cyanosis Neurological: Normal speech, Normal strength at 5/5 x4 extr, Normal tone, Normal affect Laboratory Data at Discharge: WBC 6.8 K/uL (4.3-10.9) D 11/07/19 03:48 Hgb 9.8 g/dL (12.0-15.0) L 11/07/19 03:48 Hct 30.0 % (36.0-45.0) L 11/07/19 03:48 Plt Count 129 K/uL (152-406) L 11/07/19 03:48 Sodium 139 mmol/L (136-145) 11/07/19 03:48 Potassium 4.1 mmol/L (3.5-5.1) 11/07/19 03:48 BUN 45 mg/dL (7-18) H 11/07/19 03:48 Creatinine 2.22 mg/dL (0.55-1.3) H 11/07/19 03:48 Glucose 158 mg/dL (74-106) H 11/07/19 03:48 Total Bilirubin 0.3 mg/dL (0.2-1.0) 11/07/19 03:48 AST 8 U/L (15-37) L 11/07/19 03:48 ALT 16 U/L (12-78) 11/07/19 03:48 Alkaline Phosphatase 54 U/L (45-117) 11/07/19 03:48 Home Medications: Sertraline [Zoloft*] 100 mg PO BEDTIME 01/28/19 Temazepam 30 mg PO BEDTIME 01/28/19 Trazodone HCl [Desyrel] 100 mg PO BID 01/28/19 Gabapentin 400 mg PO BID 03/17/19 Levothyroxine [Synthroid*] 50 mcg PO DAILY 03/17/19 Benzonatate [Tessalon Perle*] 100 mg PO Q6HP PRN 06/06/19 Ipratropium/Albuterol Sulfate [Iprat-Albut 0.5-3(2.5) mg/3 ml] 3 ml NEB Q4H PRN 06/06/19 Metoprolol Succinate [Toprol Xl*] 50 mg PO BID 06/06/19 Ondansetron [Zofran (Odt)*] 4 mg PO Q8HP PRN 06/06/19 Polyethylene Glycol 3350 [Miralax] 17 gm PO 1X PRN 06/06/19 Cholestyramine (with Sugar) [Cholestyramine Packet] 1 packet PO TID PRN Diphenox/Atropine [Lomotil*] 1 tab PO QID PRN 11/06/19 LORazepam [Lorazepam] 1 tab PO Q6H PRN 11/06/19 Pantoprazole Sodium [Protonix] 1 tab PO DAILY 11/06/19 Diet: AHA Activity: Ad moe Time spent managing pt's care (in minutes): 55
--- NOTE | 2019-11-07 08:22 | RAD REPORT ---
EXAM DESCRIPTION: RAD - Chest Pa And Lat (2 Views) - 11/07/2019 6:44 am CLINICAL HISTORY: Follow up shortness of breath Chest pain. COMPARISON: Chest Single View dated 11/06/2019; Chest Single View dated 09/13/2019; Chest Single View da evelin 06/17/2019; Chest Single View dated 06/05/2019; Thorax Wo Con dated 11/06/2019 FINDINGS: Ovoid opacity in the left lung apex appears mildly improved since comparative study. Elsew here, improvement in lung aeration is also seen in the bases. Trace right pleural effusion. The heart is mildly enlarged in size. Right-sided port catheter its tip in the SVC. IMPRESSION: Mild improvement in lung aeration is noted since comparative study.
--- NOTE | 2019-11-07 08:40 | P.PN ---
Subjective Date of Service: 11/07/19 Primary Care Provider: Dr. Weir(CVT Surgery); Pulmonary-Dr. Milligan Chief Complaint: Shortness of breath Patient is not getting better still complaining of coughing shortness of breath wheezing Review of Systems General: Weakness Respiratory: Cough, Shortness of Breath Physical Examination - Vital Signs Temperature: 97.6 F Blood Pressure: 115/61 Pulse: 72 Respirations: 18 Pulse Ox (%): 97 - Physical Exam General: Moderate distress Respiratory: Expiratory wheezes Cardiovascular: No edema, Regular rate/rhythm, Normal S1 S2 Gastrointestinal: Normal bowel sounds, Soft and benign - Studies Medications List Reviewed: Yes Assessment & Plan - Problems (Diagnosis) (1) Shortness of breath Current Visit: Yes Status: Acute Plan: Patient is not doing better still complaining of coughing and wheezing cultures are pending continue with present treatment had nebulize ipratropium change to p.o. Ceftin no evidence of active sepsis Physician Review: Patient Assessed, Agree with Above Assessment and Plan
[2019-11-07] MEDS ORDERED: CEFTRIAXONE 1 GM/NS 50 ML 1 GM/50 ML BAG IV SCH (09:00)
[2019-11-07] MEDS: TRAZODONE 50 MG TABLET PO SCH ×2 (09:20→22:34)
[2019-11-07] MEDS: ROFLUMILAST 500 MCG TABLET PO SCH (09:20)
[2019-11-07] MEDS: CEFUROXIME 250 MG TAB PO SCH ×2 (09:20→22:33)
[2019-11-07] MEDS: METOPROLOL XL 50 MG TAB PO SCH ×2 (09:21→22:34)
[2019-11-07] MEDS: DOXYCYCLINE 100 MG CAP PO SCH ×2 (09:21→22:33)
[2019-11-07] MEDS: FUROSEMIDE 20 MG/ 2ML VIAL IV SCH ×2 (09:21→15:54)
[2019-11-07] MEDS: GABAPENTIN 400 MG CAP PO SCH ×2 (09:21→22:33)
[2019-11-07] MEDS: predniSONE 20 MG TAB PO SCH ×2 (09:21→22:34)
[2019-11-07] MEDS: HYDROCODONE/CHLORPHEN 5 ML/OSYR PO SCH ×2 (09:25→21:00)
[2019-11-07] MEDS ORDERED: IPRATROPIUM BROM 0.5MG/2.5ML NEB SCH (14:00)
[2019-11-07] MEDS ORDERED: LEVALBUTEROL 0.63 MG/3 ML NEB NEB SCH (14:00)
--- NOTE | 2019-11-07 14:19 | P.PN ---
Subjective Date of Service: 11/07/19 Primary Care Provider: Dr. Weir(CVT Surgery); Pulmonary-Dr. Milligan Chief Complaint: Shortness of breath Subjective: Improving, Other (Patient doing better still some short of breath and cough.) Physical Examination - Vital Signs Temperature: 97.9 F Blood Pressure: 109/65 Pulse: 65 Respirations: 22 Pulse Ox (%): 22 - Physical Exam General: Alert, In no apparent distress HEENT: Atraumatic Neck: Supple Respiratory: Crackles/rales (To the bases but improved), Expiratory wheezes, Inspiratory wheezes Cardiovascular: Normal pulses, Regular rate/rhythm Gastrointestinal: Normal bowel sounds, Soft and benign, Non-distended Neurological: Normal speech, Normal strength at 5/5 x4 extr, Normal tone, Normal affect - Studies Medications List Reviewed: Yes Assessment & Plan Discharge Plan: Home Plan to discharge in: 24 Hours Physician Review Additional Text: Impression: Shortness of breath secondary to multifocal pneumonia with element of acute on chronic diastolic CHF complicated with stage IV lung cancer with prior lobectomy Hypertension GERD Chronic renal disease stage III Depression with anxiety Chronic pain Hypothyroidism Anemia of chronic disease Plan: Shortness of breath secondary to multifocal pneumonia with element of acute on chronic diastolic CHF with stage IV lung cancer with prior lobectomy: Patient still short of breath. Will continue to monitor. Will obtain echocardiogram. CT scan showed possible pericardial effusion. Await ankle results. Patient remains on antibiotic therapy. Pulmonology to further adjust. Will continue monitor closely. Possible discharge tomorrow. Hypertension: Continue medication. Will monitor and adjust appropriately. GERD: Continue medication. Chronic renal disease stage III: Overall stable. Will monitor closely. Depression with anxiety: Continue home medication. Chronic pain: Will provide breakthrough medication. Patient with pain pump. Hypothyroidism: Continue medication. Anemia of chronic disease: Will monitor closely. Overall stable. Time Spent Managing Pts Care (In Minutes): 55
--- NOTE | 2019-11-07 15:44 | ECHO ---
HEIGHT: 5 ft 3 in WEIGHT: 231 lb 0 oz DATE OF STUDY: 11/07/[address]: Vik Acosta DO 2-DIMENSIONAL: YES M.MODE: YES DOPPLER: YES COLOR FLOW: YES TDS: NO PORTABLE: NO DEFINITY: NO BUBBLE STUDY: NO DIAGNOSIS: EVALUATE FOR PERICARDIAL EFFUSION CARDIAC HISTORY: CATHERIZATION: NO SURGERY: NO PROSTHETIC VALVE: NO PACEMAKER: NO MEASUREMENTS (cm) DIASTOLIC (NORMALS) SYSTOLIC (NORMALS) IVSd 1.3 (0.6-1.2) LA Diam 3.7 (1.9-4.0) LVEF 67% LVIDd 4.9 (3.5-5.7) LVIDs 3.1 (2.0-3.5) %FS 37% LVPWd 1.3 (0.6-1.2) Ao Diam 3.1 (2.0-3.7) 2 DIMENSIONAL ASSESSMENT: RIGHT ATRIUM: NORMAL LEFT ATRIUM: NORMAL RIGHT VENTRICLE: NORMAL LEFT VENTRICLE: LEFT VENTRICULAR HYPERTROPHY TRICUSPID VALVE: NORMAL MITRAL VALVE: NORMAL PULMONIC VALVE: NORMAL AORTIC VALVE: NORMAL PERICARDIAL EFFUSION: NONE AORTIC ROOT: NORMAL LEFT VENTRICULAR WALL MOTION: DOPPLER/COLOR FLOW: TRACE MITRAL AND TRICUSPID REGURGITATION. NORMAL RIGHT VENTRICULAR SYSTOLIC PRESSURE. COMMENTS: NORMAL LEFT VENTRICULAR EJECTION FRACTION. LEFT VENTRICULAR HYPERTROPHY. TRACE MITRAL AND TRICUSPID REGURGITATION. TECHNOLOGIST: Madan MARTINEZ
[2019-11-07] MEDS: SERTRALINE HCL 50 MG TAB PO SCH (22:33)
[2019-11-07] MEDS: TEMAZEPAM 15 MG CAP PO SCH (22:33)
[2019-11-08] MEDS: HEPARIN 5000 UNIT/ML 1 ML VIAL SQ SCH ×2 (00:28→08:35)
[2019-11-08] MEDS: IPRATROPIUM BROM 0.5MG/2.5ML NEB PRN ×4 (04:10→12:10)
[2019-11-08] MEDS: LEVALBUTEROL 0.63 MG/3 ML NEB NEB PRN ×4 (04:10→12:10)
[2019-11-08] MEDS: HYDROCODONE/APAP 10/325 TAB PO PRN ×2 (04:38→09:37)
[2019-11-08] MEDS: INSULIN -REGULAR HUMAN 50 UNIT/0.5 ML ML SQ SCH (07:30)
[2019-11-08] MEDS: ARFORMOTEROL TARTRATE 15 MCG/2 ML VIAL.NEB NEB SCH (08:15)
[2019-11-08] MEDS: predniSONE 20 MG TAB PO SCH (08:35)
[2019-11-08] MEDS: GABAPENTIN 400 MG CAP PO SCH (08:35)
[2019-11-08] MEDS: METOPROLOL XL 50 MG TAB PO SCH (08:35)
[2019-11-08] MEDS: ROFLUMILAST 500 MCG TABLET PO SCH (08:35)
[2019-11-08] MEDS: DOXYCYCLINE 100 MG CAP PO SCH (08:35)
[2019-11-08] MEDS: FUROSEMIDE 20 MG/ 2ML VIAL IV SCH (08:35)
[2019-11-08] MEDS: TRAZODONE 50 MG TABLET PO SCH (08:36)
[2019-11-08] MEDS: HYDROCODONE/CHLORPHEN 5 ML/OSYR PO SCH (08:36)
[2019-11-08] MEDS: CEFUROXIME 250 MG TAB PO SCH (08:36)
[2019-11-08] MEDS: LORAZEPAM 1 MG TABLET PO PRN (09:36)
--- NOTE | 2019-11-08 11:30 | P.DS ---
Admission Date: 11/07/19 Discharge Date: 11/08/19 Primary Care Provider: Dr. Weir(CVT Surgery); Pulmonary-Dr. Milligan Disposition: ROUTINE DISCHARGE Discharge Condition: GOOD Reason for Admission: Shortness of breath Consultations: pulmonary-Dr. Valente Procedures: Procedures: CT Scan: FINDINGS: HEART/VESSELS: Heart is normal in size. Small pericardial effusion. Normal caliber thoracic aorta. Normal caliber main pulmonary artery. MEDIASTINUM AND UMA: Nonenlarged mediastinal and hilar lymph nodes. Normal appearance of the central airways. Normal esophagus. Right internal jugular central venous catheter is at the superior cavoatrial junction. LUNGS/PLEURA: There is a wedge-shaped area of consolidation in the left upper lobe with air bronchograms and mild bronchiectasis pneumonia and atelectasis. Multifocal groundglass and nodular parenchymal opacities scattered within both lower lobes. Faint centrilobular nodules are seen in the lingula. There is no edema. No pneumothorax. Subpleural bleb in the anterior right lower lobe and the superior segment. There is a 4 mm calcified granuloma within the right lower lobe. There is no pleural fluid. No edema or pneumothorax. CHEST WALL/SOFT TISSUES: There is a right chest wall Mediport, not fully imaged. The catheter extends into the upper right atrium region. No axillary adenopathy. Intact sternum. There are significant hypertrophic endplate changes in the mid to lower thoracic spine. Old posterior right rib fractures. There is slight bulging of the lateral right lower lobe within the interspace between right ribs seven and eight. UPPER ABDOMEN: The imaged liver, spleen, pancreas, adrenal glands, kidneys appear normal. Gallbladder has been resected. IMPRESSION: 1. Multifocal bilateral pneumonia. There is a dense wedge-shaped area of consolidation within the left upper lobe compatible with pneumonia/ atelectasis with bronchiectasis. There could be underlying neoplasia within this area of consolidation. 2. Small pericardial effusion. ECHO: Ejection fraction 67%. LEFT VENTRICULAR WALL MOTION: DOPPLER/COLOR FLOW: TRACE MITRAL AND TRICUSPID REGURGITATION. NORMAL RIGHT VENTRICULAR SYSTOLIC PRESSURE. COMMENTS: NORMAL LEFT VENTRICULAR EJECTION FRACTION. LEFT VENTRICULAR HYPERTROPHY. TRACE MITRAL AND TRICUSPID REGURGITATION. Medical Problem List: Shortness of breath secondary to multifocal bilateral pneumonia with possible element of acute on chronic diastolic CHF complicated with stage IV lung cancer with prior lobectomy Hypertension GERD Chronic renal disease stage III Depression with anxiety Chronic pain Hypothyroidism Anemia of chronic disease Brief History of Present Illness: 54-year-old female presented with shortness of breath, cough, congestion. Patient with stage IV lung cancer with prior right lobectomy. Patient had been treated for pneumonitis. Patient admitted for further evaluation and treatment. Hospital Course: Patient presented with shortness of breath secondary to multifocal bilateral pneumonia with possible element of acute on chronic diastolic CHF. Patient with complicated history of stage IV lung cancer with prior lobectomy and pneumonitis. Pulmonology was consulted. Patient admitted for treatment. Patient responded well to antibiotic therapy and diuresis. Patient continued with nebulized medication. Patient has significantly improved. CT scan did show multifocal bilateral pneumonia. There was some question of a small pericardial effusion. Echocardiogram performed. No pericardial effusion noted. Ejection fraction within normal range. Case discussed with cardiology. No intervention required. Case discussed at length with pulmonology concerning pneumonia/pneumonitis. Patient has significantly improved. Less short of breath noted. At discharge she will continue with prednisone 20 mg 1 pill twice daily for 5 days then 1 pill once daily for 5 days. Patient will also be provided Ceftin 500 mg 1 pill twice daily for 7 days and doxycycline 100 mg twice daily for 7 days. At which point patient will continue with her maintenance prednisone dose. At discharge will also provide Dulera 2 puffs twice daily and Xopenex 1 unit dose 3 times a day as needed for shortness of breath. Recommend to recheck chest x-ray in 2-4 weeks to monitor resolution. At discharge she will continue with home oxygen to maintain sats above 93%. 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 Patient will also need to follow up with her Oncology team. Patient with hypertension. This has remained stable. At discharge she will continue with her medication. Recommend to maintain blood pressures less 150/ 80. Further adjustment can be done by her PCP. Patient with GERD. At discharge she will continue with her medication. Patient with chronic renal disease stage II. This has remained stable. Recommend to recheck lab-BMP to monitor her progress. Recommend no further use of nonsteroidal anti-inflammatories. Future medications will need to be renally dose. Recommend follow up with Nephrology to further monitor. Patient with chronic pain. Patient currently has pain pump. Patient will continue with her current medications. Recommend follow up with her pain specialist to further monitor and address. Patient with depression with anxiety. Patient may continue with her current medication. Patient with hypothyroidism. At discharge she will continue with her medication. Patient with anemia of chronic disease. This has remained stable. Recommend to recheck lab-CBC in 2-4 weeks to monitor her progress. Vital Signs/Physical Exam: Temp Pulse Resp BP Pulse Ox 96.9 F 81 16 128/68 96 11/08/19 04:00 11/08/19 04:00 11/08/19 04:00 11/08/19 04:00 11/08/19 04:00 General: Alert, In no apparent distress HEENT: Atraumatic Neck: Supple Respiratory: Crackles/rales (Bilateral but good improvement) Cardiovascular: Normal pulses, Regular rate/rhythm Gastrointestinal: Normal bowel sounds Musculoskeletal: No tenderness, No warmth Neurological: Normal speech, Normal strength at 5/5 x4 extr, Normal tone, Normal affect Laboratory Data at Discharge: WBC 6.8 K/uL (4.3-10.9) D 11/07/19 03:48 Hgb 9.8 g/dL (12.0-15.0) L 11/07/19 03:48 Hct 30.0 % (36.0-45.0) L 11/07/19 03:48 Plt Count 129 K/uL (152-406) L 11/07/19 03:48 Sodium 139 mmol/L (136-145) 11/07/19 03:48 Potassium 4.1 mmol/L (3.5-5.1) 11/07/19 03:48 BUN 45 mg/dL (7-18) H 11/07/19 03:48 Creatinine 2.22 mg/dL (0.55-1.3) H 11/07/19 03:48 Glucose 158 mg/dL (74-106) H 11/07/19 03:48 Total Bilirubin 0.3 mg/dL (0.2-1.0) 11/07/19 03:48 AST 8 U/L (15-37) L 11/07/19 03:48 ALT 16 U/L (12-78) 11/07/19 03:48 Alkaline Phosphatase 54 U/L (45-117) 11/07/19 03:48 Home Medications: Sertraline [Zoloft*] 100 mg PO BEDTIME 01/28/19 Temazepam 30 mg PO BEDTIME 01/28/19 Trazodone HCl [Desyrel] 100 mg PO BID 01/28/19 Gabapentin 400 mg PO BID 03/17/19 Levothyroxine [Synthroid*] 50 mcg PO DAILY 03/17/19 Ipratropium/Albuterol Sulfate [Iprat-Albut 0.5-3(2.5) mg/3 ml] 3 ml NEB Q4H PRN 06/06/19 Metoprolol Succinate [Toprol Xl*] 50 mg PO BID 06/06/19 Ondansetron [Zofran (Odt)*] 4 mg PO Q8HP PRN 06/06/19 Polyethylene Glycol 3350 [Miralax] 17 gm PO 1X PRN 06/06/19 Cholestyramine (with Sugar) [Cholestyramine Packet] 1 packet PO TID PRN Diphenox/Atropine [Lomotil*] 1 tab PO QID PRN 11/06/19 LORazepam [Lorazepam] 1 tab PO Q6H PRN 11/06/19 Pantoprazole Sodium [Protonix] 1 tab PO DAILY 11/06/19 Benzonatate [Tessalon Perle*] 100 mg PO Q6HP PRN #15 cap 11/08/19 Cefuroxime [Ceftin*] 500 mg PO BID #28 tab 11/08/19 Doxycycline Hyclate 100 mg PO BID #14 tablet 11/08/19 Levalbuterol HCl [Xopenex] 3 ml IH TID PRN #90 vial.neb 11/08/19 Mometasone/Formoterol [Dulera 100 Mcg-5 Mcg Inhaler] 2 puff IH BID #1 hfa.aer.ad 11/08/19 predniSONE [Prednisone*] 20 mg PO SEECOM #15 tab 11/08/19 New Medications: Benzonatate [Tessalon Perle*] 100 mg PO Q6HP PRN #15 cap PRN Reason: Cough Cefuroxime [Ceftin*] 500 mg PO BID #28 tab Doxycycline Hyclate 100 mg PO BID #14 tablet Levalbuterol HCl [Xopenex] 3 ml IH TID PRN #90 vial.neb PRN Reason: Shortness Of Breath Mometasone/Formoterol [Dulera 100 Mcg-5 Mcg Inhaler] 2 puff IH BID #1 hfa.aer.ad predniSONE [Prednisone*] 20 mg PO SEECOM #15 tab Patient Discharge Instructions: 1. Recommend follow up with her PCP in 1 week to up this hospitalization. 2. Patient presented with shortness of breath secondary to multifocal bilateral pneumonia with possible element of acute on chronic diastolic CHF. Patient with complicated history of stage IV lung cancer with prior lobectomy and pneumonitis. Pulmonology was consulted. Patient admitted for treatment. Patient responded well to antibiotic therapy and diuresis. Patient continued with nebulized medication. Patient has significantly improved. CT scan did show multifocal bilateral pneumonia. There was some question of a small pericardial effusion. Echocardiogram performed. No pericardial effusion noted. Ejection fraction within normal range. Case discussed with cardiology. No intervention required. Case discussed at length with pulmonology concerning pneumonia/pneumonitis. Patient has significantly improved. Less short of breath noted. At discharge she will continue with prednisone 20 mg 1 pill twice daily for 5 days then 1 pill once daily for 5 days. Patient will also be provided Ceftin 500 mg 1 pill twice daily for 7 days and doxycycline 100 mg twice daily for 7 days. At which point patient will continue with her maintenance prednisone dose. At discharge will also provide Dulera 2 puffs twice daily and Xopenex 1 unit dose 3 times a day as needed for shortness of breath. Recommend to recheck chest x-ray in 2-4 weeks to monitor resolution. At discharge she will continue with home oxygen to maintain sats above 93%. 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 Patient will also need to follow up with her Oncology team. 3. Patient with hypertension. This has remained stable. At discharge she will continue with her medication. Recommend to maintain blood pressures less 150/80. Further adjustment can be done by her PCP. 4. Patient with GERD. At discharge she will continue with her medication. 5. Patient with chronic renal disease stage II. This has remained stable. Recommend to recheck lab-BMP to monitor her progress. Recommend no further use of nonsteroidal anti-inflammatories. Future medications will need to be renally dose. Recommend follow up with Nephrology to further monitor. 6. Patient with chronic pain. Patient currently has pain pump. Patient will continue with her current medications. Recommend follow up with her pain specialist to further monitor and address. 7. Patient with depression with anxiety. Patient may continue with her current medication. 8. Patient with hypothyroidism. At discharge she will continue with her medication. 9. Patient with anemia of chronic disease. This has remained stable. Recommend to recheck lab-CBC in 2-4 weeks to monitor her progress. Diet: AHA Activity: Ad moe Time spent managing pt's care (in minutes): 55
[2019-11-08 13:18] VITALS: O2SAT 97
[2019-11-08 13:29] VITALS: BP 108/60; TEMP 97.6
== END 2019-11-08 13:49 | disposition home or self-care (01) | DRG 193 ==
LOC: ER 00:19 → INTOOBSV 05:40 → 4TH 05:40 → OBSVTOIN 11-07 15:47
PROVIDERS: ADMIT Internal Medicine; ATTEND Internal Medicine
DX: J18.9 Pneumonia, unspecified organism (principal); I50.33 Acute on chronic diastolic (congestive) heart failure; I13.0 Hypertensive heart and chronic kidney disease with heart failure and stage 1 through stage 4 chronic kidney disease, or unspecified chronic kidney disease; C34.90 Malignant neoplasm of unspecified part of unspecified bronchus or lung; N18.3 Chronic kidney disease, stage 3 (moderate); K21.9 Gastro-esophageal reflux disease without esophagitis; F41.8 Other specified anxiety disorders; E03.9 Hypothyroidism, unspecified; Z96.652 Presence of left artificial knee joint
CPT/HCPCS: 36415; 71045; 71046; 71250; 80048; 80053; 81003; 82947; 83605; 83880; 84145; 84484; 85025; 87040; 87070; 87205; 87804; 93005; 93306; 94640; 96361; 96365; 96366; 96375; 97161; 99285; G0378; J0456; J0696; J1170; J1644; J1940; J2405; J2930; J7030; J7040; J7512; J7605

== ENCOUNTER 2019-12-06 23:45 | Observation (INO) | payer OTHER ==
--- OUTSIDE RECORDS SUMMARY | 2019-12-06 23:46 | XMS REPORT ---
:1965 [facility] Address [address] [place] [address] Dr. Cloud [address] [place] [id number] Care Team Providers Name Role Phone Unavailable [...] UP TO 1 08:26:00 exam:->Chronic Pain ID: [id number] A HOUR fluoroscopic unit was utilized for a procedure performed in the operating room. No interpretation was requested. Please refer to the operative report regarding findings. Please refer to PACS for patient radiation dose information. Signed: Jia Linn Verified Date/Time: 10/09/2019 08:26:53 Reading Location: [facility] Radiology Reading Room
[2019-12-07] MEDS ORDERED: HYDROMORPHONE HCL 1 MG/ML INJ ONE ×2 (00:17→01:45)
[2019-12-07] MEDS ORDERED: ONDANSETRON 4 MG/2 ML VIAL ONE ×2 (00:18→04:25)
[2019-12-07 00:25] LABS: Basophils % 0.3 % (0-1.3); Hematocrit 33.3 % (36.0-45.0); Lymphocytes % 19.9 % (15.3-44.8); MPV 8.4 fL (7.6-11.3); RBC Red Blood Cell Count 3.56 M/uL (3.86-4.86)
[2019-12-07 00:26] LABS: Protime INR 0.95
[2019-12-07 00:43] LABS: ALT/SGPT 18 U/L (12-78); AST/SGOT 10 U/L (15-37); Albumin 3.7 g/dL (3.4-5.0); Alkaline Phosphatase 78 U/L (45-117); BUN Blood Urea Nitrogen 25 mg/dL (7-18); Bicarbonate 22 mmol/L (21-32); Bilirubin Direct < 0.1 mg/dL (0-0.2); Bilirubin Total 0.2 mg/dL (0.2-1.0); Glucose Level 132 mg/dL (74-106); Magnesium 1.9 mg/dL (1.8-2.4); NT PRO-BNP 313 pg/mL (<125); Potassium 3.9 mmol/L (3.5-5.1); Protein, Total 7.5 g/dL (6.4-8.2); Sodium Level 141 mmol/L (136-145); Troponin (Emerg Dept Use Only) < 0.02 ng/mL (0.0-0.045)
--- NOTE | 2019-12-07 01:32 | EDPHYS ---
Physician Documentation [facility] Name: Anisha Lindsay Age: 54 yrs Sex: Female : 1965 Arrival Date: 12/06/2019 Time: 23:52 Bed 8 Private MD: ELROY Physician Андрей Velasco HPI: 12/05 23:50 This 54 yrs old Female presents to ER via EMS with complaints of chest pain. [facility] 23:50 The patient or guardian reports chest pain that is located primarily in the substernal [facility] area. Onset: gradually, 7 hour(s) ago. The pain does not radiate. Associated signs and symptoms: Pertinent positives: headache. The chest pain is described as a pressure. Duration: The patient or guardian reports a single episode, that is now resolved. Modifying factors: The symptoms are alleviated by nothing. the symptoms are aggravated by nothing. Patient states chest pain began 7 hours prior. Worse than previous episodes. . Historical: - Allergies: 12/06 00:25 Adhesives; ea 00:25 Celebrex; ea 00:25 Demerol; ea - Home Meds: 00:25 metoprolol tartrate 50 mg Oral tab 1 tab 2 times per day [Active]; prednisone 20 mg ea Oral tab 1 tab 2 times per day [Active]; Protonix 40 mg Oral TbEC 1 tab once daily [Active]; trazodone 100 mg Oral tab 1 tab nightly [Active]; sertraline 100 mg Oral tab 1 tab nightly [Active]; - PMHx: 00:25 Adenocarcinoma of the Lungs; Anxiety; CHF; COPD; CSF leak; Depression; Hypertension; ea Hypothyroidism; Myocardial infarction; osteo arthirtis; pericardial effusion; pericarditis; Renal Disease; Rheumatoid Arthritis; - Immunization history:: Pneumococcal vaccine is up to date, Flu vaccine is up to date. - Social history:: Smoking status: Patient denies any tobacco usage or history of. Patient/guardian denies using alcohol. ROS: 12/05 23:50 Constitutional: Negative for fever, chills, and weight loss. jmm Abdomen/GI: Negative for abdominal pain, nausea, vomiting, diarrhea, and constipation, Back: Negative for injury and pain. Cardiovascular: Positive for chest pain. Neuro: Positive for headache. All other systems are negative. Exam: 23:50 Constitutional: This is a well developed, well nourished patient who is awake, alert, jmm and in no acute distress. Head/Face: atraumatic. Eyes: EOMI, no conjunctival erythema appreciated ENT: Moist Mucus Membranes Neck: Trachea midline, Supple Chest/axilla: Normal chest wall appearance and motion. 23:50 Respiratory: Normal respirations, no respiratory distress appreciated Abdomen/GI: Non distended, soft Back: Normal ROM Skin: General appearance color normal MS/ Extremity: Moves all extremities, no obvious deformities appreciated, no edema noted to the lower extremities Neuro: Awake and alert, normal gait Psych: Behavior is normal, Mood is normal, Patient is cooperative and pleasant 23:50 Cardiovascular: Rate: normal, Rhythm: regular, Pulses: no pulse deficits are appreciated. 23:50 ECG was reviewed by the Attending Physician. Vital Signs: 23:53 BP 199 / 112; Pulse 102; Resp 15; Temp 98.9; Pulse Ox 98% on R/A; Weight 104.33 kg; ea Height 5 ft. 3 in. (160.02 cm); Pain 10/10; 12/06 00:24 BP 175 / 102; Pulse 90; Resp 15; Pulse Ox 99% ; ah 00:56 BP 117 / 75; Pulse 82; Resp 13; Pulse Ox 98% ; 01:30 BP 119 / 66; Pulse 78; Resp 13; Pulse Ox 97% ; 02:00 BP 117 / 70; Pulse 73; Resp 16; Pulse Ox 96% ; 02:30 BP 110 / 69; Pulse 68; Resp 12; Pulse Ox 97% ; 03:00 BP 123 / 86; Pulse 68; Resp 12; Pulse Ox 97% ; 03:30 BP 116 / 76; Pulse 68; Resp 10; Pulse Ox 98% ; 04:45 BP 126 / 70; Pulse 62; Resp 15; Temp 98.9; Pulse Ox 96% ; ah 12/05 23:53 Body Mass Index 40.74 (104.33 kg, 160.02 cm) ea MDM: 12/05 23:55 Patient medically screened. [facility] 12/06 01:25 Data reviewed: vital signs, nurses notes. [facility] 12/05 23:52 Order name: Basic Metabolic Panel; Complete Time: 00:43 j 12/05 23:52 Order name: CBC with Diff; Complete Time: 00:36 j 12/05 23:52 Order name: LFT's; Complete Time: 00:43 [facility] 12/05 23:52 Order name: Magnesium; Complete Time: 00:43 [facility] 12/05 23:52 Order name: NT PRO-BNP; Complete Time: 00:43 [facility] 12/05 23:52 Order name: PT-INR; Complete Time: 00:43 [facility] 12/05 23:52 Order name: Troponin (emerg Dept Use Only); Complete Time: 00:43 [facility] 12/05 23:52 Order name: XRAY Chest (1 view) [facility] 12/05 23:52 Order name: EKG; Complete Time: 23:53 [facility] 12/05 23:52 Order name: Cardiac monitoring; Complete Time: 00: [facility] 12/05 23:52 Order name: EKG - Nurse/Tech; Complete Time: 00:11 [facility] 12/05 23:52 Order name: IV Saline Lock; Complete Time: 00: [facility] 12/05 23:52 Order name: Labs collected and sent; Complete Time: 00: [facility] 12/05 23:52 Order name: O2 Per Protocol; Complete Time: 00: [facility] 12/05 23:52 Order name: O2 Sat Monitoring; Complete Time: 00:11 [facility] EC/02 23:50 Rate is 98 beats/min. Rhythm is regular. QRS Vickery is Normal. NE interval is normal. QRS jmm interval is normal. QT interval is normal. No Q waves. T waves are Normal. No ST changes noted. Reviewed by me. Administered Medications: 12/06 00:34 Drug: Zofran (Ondansetron) 4 mg Route: IVP; Site: Port-a-cath; jd3 01:30 Follow up: Response: No adverse reaction; Nausea is decreased 00:35 Drug: Dilaudid 1 mg Route: IVP; Site: Port-a-cath; jd3 01:30 Follow up: Response: No adverse reaction; Pain is decreased; RASS: Alert and Calm (0) 01:43 Drug: Dilaudid 1 mg {Note: RASS 0.} Route: IVP; Site: Port-a-cath; jd3 02:45 Follow up: Response: No adverse reaction; Pain is decreased; RASS: Drowsy (-1) 04:30 Drug: morphine 4 mg Route: IVP; Site: Port-a-cath; 04:54 Follow up: Response: No adverse reaction 04:30 Drug: Zofran (Ondansetron) 4 mg Route: IVP; Site: Port-a-cath; 04:54 Follow up: Response: No adverse reaction Disposition: 07:42 Co-signature as Attending Physician, Андрей Velasco MD I agree with the assessment and [facility] plan of care. Disposition: 12/07/19 01:31 Hospitalization ordered by Amber Steiner for Observation. Preliminary diagnosis is Chest pain, unspecified. - Bed requested for Telemetry/MedSurg (observation). - Status is Observation. ah - Condition is Stable. - Problem is new. - Symptoms are unchanged. Signatures: Dispatcher [employer] EDMS Андрей Velasco MD MD cha Mickail, Joel, PA PA jmm Garcia, Cindy, RN Xiomara Tovar RN Balaji Caballero ea RN Inés Perez RN ALEX Corrections: (The following items were deleted from the chart) 04:29 01:31 Hospitalization Ordered by Amber Steiner MD for Observation. Preliminary cg diagnosis is Chest pain, unspecified. Bed requested for Telemetry/MedSurg (observation). Status is Observation. Condition is Stable. Problem is new. Symptoms are unchanged. shana 05:09 04:29 12/07/2019 01:31 Hospitalization Ordered by Amber Steiner MD for Observation. Preliminary diagnosis is Chest pain, unspecified. Bed requested for Telemetry/MedSurg (observation). Status is Observation. Condition is Stable. Problem is new. Symptoms are unchanged. cg
--- NOTE | 2019-12-07 01:32 | ER ---
Nurse's Notes [facility] Name: Anisha Lindsay Age: 54 yrs Sex: Female : 1965 Arrival Date: 12/06/2019 Time: 23:52 Bed 8 Private MD: Diagnosis: Chest pain, unspecified Presentation: 12/05 23:53 Chief complaint: Patient states: chest pain (pressure) and going to her back x5 hours ea and headache for a few hours. Pt states that she took an extra dose of metoprolol today thinking that would help. Per EMS vitals are 170/100, 97.6, 103 HR. Coronavirus screen: Patient denies fever greater than 100.4F, cough, shortness of breath, or difficulty breathing. Proceed with normal triage process. Ebola Screen: No symptoms or risks identified at this time. Initial Sepsis Screen: Does the patient meet any 2 criteria? No. Patient's initial sepsis screen is negative. Does the patient have a suspected source of infection? No. Patient's initial sepsis screen is negative. Risk Assessment: Do you want to hurt yourself or someone else? Patient reports no desire to harm self or others. 23:53 Method Of Arrival: EMS: [facility] ea 23:53 Acuity: CHEN 2 ea 23:53 Chief complaint: Patient states: EMS states she was in sinus tach enroute. ea 12/06 00:31 Care prior to arrival: Medication(s) given: ASA, 325 mg, Nitroglycerin, x 2, ea 04:10 Onset of symptoms was December 06, 2019. Triage Assessment: 00:27 General: Appears distressed, uncomfortable. General: Behavior is cooperative. Pain: ea Complains of pain in chest. EENT: No deficits noted. Neuro: Level of Consciousness is awake, alert, Oriented to person, place, time, situation. Cardiovascular: Reports chest pain, diaphoresis, nausea, vomiting. Historical: - Allergies: 00:25 Adhesives; ea 00:25 Celebrex; ea 00:25 Demerol; ea - Home Meds: 00:25 metoprolol tartrate 50 mg Oral tab 1 tab 2 times per day [Active]; prednisone 20 mg ea Oral tab 1 tab 2 times per day [Active]; Protonix 40 mg Oral TbEC 1 tab once daily [Active]; trazodone 100 mg Oral tab 1 tab nightly [Active]; sertraline 100 mg Oral tab 1 tab nightly [Active]; - PMHx: 00:25 Adenocarcinoma of the Lungs; Anxiety; CHF; COPD; CSF leak; Depression; Hypertension; ea Hypothyroidism; Myocardial infarction; osteo arthirtis; pericardial effusion; pericarditis; Renal Disease; Rheumatoid Arthritis; - Immunization history:: Pneumococcal vaccine is up to date, Flu vaccine is up to date. - Social history:: Smoking status: Patient denies any tobacco usage or history of. Patient/guardian denies using alcohol. Screenin:26 Abuse screen: Denies threats or abuse. Abuse screen: Denies threats or abuse. ea Nutritional screening: No deficits noted. Tuberculosis screening: No symptoms or risk factors identified. Fall Risk None identified. Assessment: 00:35 General: Appears uncomfortable, Behavior is cooperative, anxious. Pain: Complains of ea pain in chest and headache Pain radiates to back Pain currently is 10 out of 10 on a pain scale. Quality of pain is described as pressure, Pain began about 5 hours ago. Neuro: Level of Consciousness is awake, alert, obeys commands, Oriented to person, place, time, situation, Speech is normal, Reports. Cardiovascular: Reports chest pain, diaphoresis, nausea, vomiting, Heart tones S1 S2 present Capillary refill < 3 seconds Patient's skin is warm and dry. Respiratory: Airway is patent Respiratory effort is even, unlabored, Respiratory pattern is regular, symmetrical, Breath sounds are diminished in right upper lobe. GI: Bowel sounds present X 4 quads. Abd is soft and non tender Reports nausea. : No signs and/or symptoms were reported regarding the genitourinary system. EENT: No signs and/or symptoms were reported regarding the EENT system. Derm: No signs and/or symptoms reported regarding the dermatologic system. 01:40 Reassessment: Pt complaining of pain, provider notified, medication order obtained. 02:45 Reassessment: Patient appears in no apparent distress at this time. No needs voiced at this time Patient states feeling better. Patient states symptoms have improved. 04:07 Reassessment: Hospitalist in room with patient at this time. Awaiting room assignment. 04:53 Reassessment: Report given to reciving nurse on 2nd floor. Vital Signs: 12/05 23:53 BP 199 / 112; Pulse 102; Resp 15; Temp 98.9; Pulse Ox 98% on R/A; Weight 104.33 kg; ea Height 5 ft. 3 in. (160.02 cm); Pain 10/10; 12/06 00:24 BP 175 / 102; Pulse 90; Resp 15; Pulse Ox 99% ; ah 00:56 BP 117 / 75; Pulse 82; Resp 13; Pulse Ox 98% ; 01:30 BP 119 / 66; Pulse 78; Resp 13; Pulse Ox 97% ; 02:00 BP 117 / 70; Pulse 73; Resp 16; Pulse Ox 96% ; 02:30 BP 110 / 69; Pulse 68; Resp 12; Pulse Ox 97% ; 03:00 BP 123 / 86; Pulse 68; Resp 12; Pulse Ox 97% ; 03:30 BP 116 / 76; Pulse 68; Resp 10; Pulse Ox 98% ; 04:45 BP 126 / 70; Pulse 62; Resp 15; Temp 98.9; Pulse Ox 96% ; ah 12/05 23:53 Body Mass Index 40.74 (104.33 kg, 160.02 cm) ea ED Course: 12/05 23:52 Patient arrived in ED. jd3 23:54 Rahul Julien PA is PHCP. [facility] 23:54 Андрей Velasco MD is Attending Physician. [facility] 12/06 00:08 Accessed Port-a-Cath. using accessed w/ # 20 Kahn needle, Clean \T\ dry. Dressing jd3 intact. Good blood return. Flushes easily. placed Inés RN. 00:13 Xiomara Poon RN is Primary Nurse. ea 00:22 Triage completed. ea 00:28 Arm band placed on right wrist. ea 00:29 Patient has correct armband on for positive identification. Placed in gown. Bed in low ea position. Call light in reach. Side rails up X2. quality assurance monitor chassis on. Pulse ox on. NIBP on. 01:02 XRAY Chest (1 view) In Process Unspecified. EDMS 01:31 Amber Steiner MD is Hospitalizing Provider. [facility] 04:09 Consulted physician to see patient. 04:53 No provider procedures requiring assistance completed. Patient admitted, IV remains in ah place. Administered Medications: 00:34 Drug: Zofran (Ondansetron) 4 mg Route: IVP; Site: Port-a-cath; jd3 01:30 Follow up: Response: No adverse reaction; Nausea is decreased 00:35 Drug: Dilaudid 1 mg Route: IVP; Site: Port-a-cath; jd3 01:30 Follow up: Response: No adverse reaction; Pain is decreased; RASS: Alert and Calm (0) 01:43 Drug: Dilaudid 1 mg {Note: RASS 0.} Route: IVP; Site: Port-a-cath; jd3 02:45 Follow up: Response: No adverse reaction; Pain is decreased; RASS: Drowsy (-1) 04:30 Drug: morphine 4 mg Route: IVP; Site: Port-a-cath; 04:54 Follow up: Response: No adverse reaction 04:30 Drug: Zofran (Ondansetron) 4 mg Route: IVP; Site: Port-a-cath; 04:54 Follow up: Response: No adverse reaction Outcome: 01:31 Decision to Hospitalize by Provider. lay 04:52 Admitted to Tele accompanied by nurse, via stretcher, via wheelchair, room 204, with chart, Report called to receiving nurse 04:52 Condition: good 04:52 Instructed on the need for admit. 05:09 Patient left the ED. Signatures: Dispatcher [employer] EDMS Rahul Julien PA PA jmm Antunez, Elena, RN RN ea Davies, Jonathon, RN RN jd3 Harris, Amy, RN RN Corrections: (The following items were deleted from the chart) 00:13 00:08 Accessed Port-a-Cath. using accessed w/ # 20 Kahn needle, ,sterile technique, maureen per hospital protocol. Clean \T\ dry. Dressing intact. Good blood return. Flushes easily. placed by Inés JOHNSON. maureen 00:26 0402 23:53 Acuity: CHEN 3 ea 12/06 00:33 04 23:53 Chief complaint: Patient states: chest pain (pressure) and going to her ea back x5 hours and headache for a few hours. Pt states that she took an extra dose of metoprolol today thinking that would help. Per EMS vitals are 170/100, 97.6, 103 HR. 12/06 00:35 12/05 23:53 Coronavirus screen: Patient denies fever greater than 100.4F, cough, ea shortness of breath, or difficulty breathing. Proceed with normal triage process. 12/06 05:08 04:52 Admitted to Tele accompanied by nurse, via stretcher, room 204, with chart, Report called to receiving nurse
[2019-12-07] MEDS ORDERED: MORPHINE 4 MG/ML SYR ONE (04:25)
--- NOTE | 2019-12-07 04:31 | P.HP ---
Certification for Inpatient Patient admitted to: Observation With expected LOS: <2 Midnights Patient will require the following post-hospital care: None Practitioner: I am a practitioner with admitting privileges, knowledge of patient current condition, hospital course, and medical plan of care. Services: Services provided to patient in accordance with Admission requirements found in Title 42 Section 412.3 of the Code of Federal Regulations Patient History Date of Service: 12/07/19 Primary Care Provider: Dr. Wolfe; Pulm-Dr. James; Card-Dr. Goddard; Renal -Dr. Ratliff Reason for admission: Chest pain History of Present Illness: 54-year-old female with multiple medical problems including hypertension, chronic diastolic CHF, stage IV lung cancer with prior lobectomy, GERD, chronic renal disease stage II, chronic pain with pain pump, depression with anxiety, hypothyroidism, and anemia of chronic disease. Patient presented with chest pain. It started around 2:00 p.m. yesterday. It was mainly to the substernal region. Patient denied any radiation of pain. She also reported some left shoulder pain. The chest pain did not resolve throughout the day. She took her metoprolol and Protonix without improvement. She noted that her blood pressure was elevated. She reported some mild headache. Minimal shortness of breath noted. She denied any fever, chills,. She denies any recent travel. She denies any sick contacts. Patient was recently hospitalized on November 06 through the for shortness of breath related to pneumonia and likely acute on chronic diastolic CHF. Patient was sent home with antibiotics and started on Lasix to be use as needed. She reports since using Lasix she has noted some improvement. She has followed up with her sand worker. Her sand worker recently decreased her prednisone from 20 mg daily to 10 mg daily. She had noted some improvement with initiation of inhalers. She also reports recently seen by her dentist. She is currently on antibiotic therapy. Patient continued with chest pain. She came to the ER for further evaluation. Chest pain was relieved with nitroglycerin. In the ER blood pressures were initially elevated. Blood pressure now better controlled. Patient stable this time. Lab shows white count 4.8, hemoglobin 11. Platelet count 195. Sodium 141, potassium 3.9, BUN of 25, creatinine 1.91 with a GFR of 27. Glucose 132. Initial troponin unremarkable. BNP 313. Patient admitted for observation. When I saw the patient ER, she did not appear in any distress. Patient stable at this time. Recent echocardiogram done November 22 of this year showed a normal ejection fraction of 67%. Last year in March she had a stress test that was unremarkable. She recently followed up with cardiology. Allergies celecoxib [From Celebrex] Allergy (Verified 07/02/16 02:13) unknown meperidine [From Demerol] Allergy (Verified 07/02/16 02:13) unknown Home medications list reviewed: Yes Home Medications: Sertraline [Zoloft*] 100 mg PO BEDTIME 01/28/19 Temazepam 30 mg PO BEDTIME 01/28/19 Trazodone HCl [Desyrel] 100 mg PO BID 01/28/19 Gabapentin 400 mg PO BID 03/17/19 Levothyroxine [Synthroid*] 50 mcg PO DAILY 03/17/19 Ipratropium/Albuterol Sulfate [Iprat-Albut 0.5-3(2.5) mg/3 ml] 3 ml NEB Q4H PRN 06/06/19 Metoprolol Succinate [Toprol Xl*] 50 mg PO BID 06/06/19 Ondansetron [Zofran (Odt)*] 4 mg PO Q8HP PRN 06/06/19 Polyethylene Glycol 3350 [Miralax] 17 gm PO 1X PRN 06/06/19 Cholestyramine (with Sugar) [Cholestyramine Packet] 1 packet PO TID PRN Diphenox/Atropine [Lomotil*] 1 tab PO QID PRN 11/06/19 LORazepam [Lorazepam] 1 tab PO Q6H PRN 11/06/19 Pantoprazole Sodium [Protonix] 1 tab PO DAILY 11/06/19 Benzonatate [Tessalon Perle*] 100 mg PO Q6HP PRN #15 cap 11/08/19 Cefuroxime [Ceftin*] 500 mg PO BID #28 tab 11/08/19 Doxycycline Hyclate 100 mg PO BID #14 tablet 11/08/19 Levalbuterol HCl [Xopenex] 3 ml IH TID PRN #90 vial.neb 11/08/19 Mometasone/Formoterol [Dulera 100 Mcg-5 Mcg Inhaler] 2 puff IH BID #1 hfa.aer.ad 11/08/19 predniSONE [Prednisone*] 20 mg PO SEECOM #15 tab 11/08/19 - Past Medical/Surgical History Diabetic: No -: Rheumatoid arthritis -: GERD -: HTN -: Stage IV lung cancer -: CAD, chronic diastolic CHF -: Chronic pericardial effusion -: Hypothyroidism -: Depression with anxiety -: GERD with history of Haque's esophagus -: Chronic pain with pain pump -: Chronic steroid use -: Chronic renal disease stage II -: Hysterectomy -: Total L knee replacement -: lap mehul, lap appy -: pain pump R abdomen -: L lobe thyroidectomy -: R lobectomy -: tonsillectomy -: 3 corneal transplants Psychosocial/ Personal History: Patient lives at home - Family History Father -: Heart disease, Other (see notes) Notes: rheumatoid arthritis Mother -: Cancer Notes: : breast and throat ca Brother -: Cancer Notes: 2 brothers from ca lung ca, colon ca Sister -: Cancer Notes: lung ca - Social History Smoking Status: Unknown if ever smoked Alcohol use: No CD- Drugs: No Caffeine use: Yes Place of Residence: Home Review of Systems General: As per HPI Eyes: Unremarkable ENT: Unremarkable Respiratory: Shortness of Breath, As per HPI Cardiovascular: Chest Pain, As per HPI Gastrointestinal: Unremarkable Genitourinary: Unremarkable Musculoskeletal: Unremarkable Integumentary: Unremarkable Neurological: Unremarkable Lymphatics: Unremarkable Physical Examination - Physical Exam General: Alert, In no apparent distress, Oriented x3, Cooperative HEENT: Atraumatic, Normocephalic Neck: Supple Respiratory: Expiratory wheezes (Mild wheezing bilateral) Cardiovascular: Normal pulses, Regular rate/rhythm Gastrointestinal: Normal bowel sounds, Soft and benign, Non-distended, No tenderness, No masses, No rebound, No guarding Musculoskeletal: No erythema, No tenderness, No warmth Integumentary: No erythema, No warmth, No cyanosis, Tenderness/swelling (Mild edema to the lower extremities bilateral) Neurological: Normal speech, Normal strength at 5/5 x4 extr, Normal tone, Normal affect - Studies Laboratory Data (last 24 hrs) 12/07/19 00:08: PT 11.2, INR 0.95 12/07/19 00:08: WBC 4.8, Hgb 11.1 L, Hct 33.3 L, Plt Count 195 12/07/19 00:08: Sodium 141, Potassium 3.9, BUN 25 H, Creatinine 1.90 H, Glucose 132 H, Magnesium 1.9, Total Bilirubin 0.2, AST 10 L, ALT 18, Alkaline Phosphatase 78 Assessment and Plan - Plan Impression: Chest pain with hypertension and chronic diastolic CHF COPD History lung cancer stage IV with prior lobectomy Rheumatoid arthritis on chronic steroids Hypothyroidism Chronic renal disease stage II Depression with anxiety Chronic pain with fentanyl pain pump GERD Restless leg syndrome Plan: Chest pain with hypertension and chronic diastolic CHF: Patient be admitted for further evaluation and treatment. Will continue monitor cardiac enzymes and telemetry. Prior echocardiogram reviewed. Normal ejection fraction noted. Will order cardiac stress test to further evaluate. Will consult cardiology to further address. Await further recommendations. Blood pressures initially elevated. Will continue with Toprol-XL 50 mg 1 pill twice daily and Lasix 20 mg daily. Will teach on 1500 cc per day fluid restriction and low-salt diet. Will add lisinopril 5 mg 1 pill twice daily, hold if blood pressure systolic less than 110. Anticipate improvement. If workup unremarkable anticipate discharge today if workup unremarkable and cleared by cardiology. COPD: Continue with Dulera, Atrovent and Xopenex. Continue oxygen to maintain sats above 93%. Currently stable this time. Patient is seen by pulmonology in is on chronic steroids. Will continue with prednisone 10 mg daily. History lung cancer stage IV with prior lobectomy: Currently stable at this time. Rheumatoid arthritis on chronic steroids: Currently stable at this time. Patient with fentanyl pain pump. Continue prednisone. Hypothyroidism: Continue with levothyroxine 50 mcg daily. Chronic renal disease stage II: Currently stable this time. Renal function shows improvement since last visit. Patient seen by nephrology. Depression with anxiety: Continue with Zoloft and trazodone. Chronic pain with fentanyl pain pump: Continue with fentanyl pain pump. Will add tramadol/Palmer as needed for pain. GERD: Continue Protonix 40 mg daily. Restless leg syndrome: Obtain and restart home medication. Medication was recently initiated by nephrology. Discharge Plan: Home Plan to discharge in: 24 Hours - Advance Directives Does patient have a Living Will: No Does patient have a Durable POA for Healthcare: Yes - Code Status/Comfort Care Code Status Assessed: Yes (Patient is do not resuscitate.) Time Spent Managing Pts Care (In Minutes): 55
[2019-12-07] MEDS ORDERED: ONDANSETRON 4 MG/2 ML VIAL IV PRN (05:04)
[2019-12-07] MEDS ORDERED: TRAMADOL HCL 50 MG TAB PO PRN (05:04)
[2019-12-07] MEDS ORDERED: TRAZODONE 50 MG TABLET PO PRN (05:04)
[2019-12-07] MEDS ORDERED: ALBUTEROL INHALER 60 PUFF/8 GM IH PRN (05:04)
[2019-12-07] MEDS ORDERED: HYDROCODONE/APAP 7.5/325 MG TAB PO PRN (05:04)
[2019-12-07] MEDS ORDERED: LORAZEPAM 0.5 MG TABLET PO PRN (05:04)
[2019-12-07] MEDS ORDERED: ACETAMINOPHEN 500 MG TAB PO PRN (05:04)
[2019-12-07 05:23] VITALS: BMI 40.6
[2019-12-07] MEDS: METOPROLOL XL 50 MG TAB PO SCH ×2 (06:00→17:20)
[2019-12-07] MEDS: LEVOTHYROXINE SOD 0.05 MG TABLET PO SCH ×2 (06:30→08:26)
[2019-12-07] MEDS: PANTOPRAZOLE 40MG TABLET PO SCH ×2 (06:30→08:27)
[2019-12-07] MEDS: HEPARIN 5000 UNIT/ML 1 ML VIAL SQ SCH ×2 (07:25→17:22)
[2019-12-07] MEDS: IPRATROPIUM BROM 0.5MG/2.5ML NEB SCH ×2 (07:55→14:35)
[2019-12-07] MEDS ORDERED: REGADENOSON 0.4 MG/5 ML SYR IV ONE (08:05)
[2019-12-07 08:31] LABS: CKMB Creatine Kinase MB < 1.0 ng/mL (0.3-3.6); Creatine Phosphokinase 35 U/L (26-192); Troponin I < 0.02 ng/mL (0.0-0.045)
[2019-12-07] MEDS ORDERED: SERTRALINE HCL 100 MG TAB PO SCH (09:00)
[2019-12-07] MEDS ORDERED: FUROSEMIDE 20 MG TABLET PO SCH (09:00)
[2019-12-07] MEDS ORDERED: AMOXICILLIN TRIHYDR 250 MG CAP PO SCH (09:00)
[2019-12-07] MEDS ORDERED: predniSONE 10 MG TAB PO SCH (09:00)
[2019-12-07] MEDS ORDERED: DULERA 100/5 (MOMETASONE/FORMOTEROL) INHALER IH SCH (09:00)
[2019-12-07] MEDS ORDERED: lisinopriL 5 MG TAB PO SCH (09:00)
--- NOTE | 2019-12-07 09:12 | RAD REPORT ---
EXAM DESCRIPTION: Ermelinda Single View12/07/2019 1:01 am CLINICAL HISTORY: Chest pain COMPARISON: November 2019 FINDINGS: The left upper lobe opacity has decreased size and is small. Mild left basilar opacity un changed. Mild right basilar opacity is suspected. The heart is normal size. A central venous line remains in place. Old rib fractures IMPRESSION: Improvement in the left upper lobe opacity. Mild bibasilar opacities. These likely repre sent mild pneumonia
--- NOTE | 2019-12-07 12:10 | RAD REPORT ---
EXAM DESCRIPTION: NM - Rest Stress Cardiac Imaging - 12/07/2019 12:04 pm CLINICAL HISTORY: Chest pain. COMPARISON: 2018 TECHNIQUE: The patient was administered approximately 10mCi of Tc 99m Sestamibi prior to resting SPE CT imaging of the heart. The patient was then administered approximately 30 mCi of Tc 99m Sestamibi f ollowing exercise or pharmacologic stress. Multiplanar SPECT images were reviewed. FINDINGS: There is uniformity of radiotracer uptake involving the entire left ventricular myocardiu m on rest and stress images. The left ventricular ejection fraction equals 68% IMPRESSION: Negative for a myocardial perfusion defect
--- NOTE | 2019-12-07 14:38 | EKG ---
Test Date: 2019-12-06 Test Time: 23:51:58 Slip Operator: PREMA MEASUREMENT RESULTS: Intervals: Rate: 98 WY: 158 QRSD: 80 QT: 336 QTc: 428 [place]: P: 27 WY: 158 QRS: 37 T: 40 INTERPRETIVE STATEMENTS: Normal sinus rhythm Normal ECG Compared to ECG 11/06/2019 00:28:58 Sinus tachycardia no longer present ST (T wave) deviation no longer present Electronically Signed On 12-07-19 14:36:47 CDT by [employer]
[2019-12-07] MEDS ORDERED: MORPHINE 2 MG/ML SYR IV ONE (15:00)
--- NOTE | 2019-12-07 15:24 | TREADPHA ---
DX: CHEST PAIN Date of Study: 12/07/2019 Ht: 5 3 Wt: 229 lb 6 oz Consulting Physician: AYE MEDICATIONS: TYLENOL, LASIX, AMOXIL CAP, PRINIVIL, ATIVAN, TOPROL XL, ULTRAM, HEPARIN, ZOLOFT, DESYREL HISTORY: 54 YEAR OLD FEMALE WITH COMPLAINTS OF CHEST PAIN. HISTORY OF HYPERTENSION, HIGH CHOLESTEROL, CONGESTIVE HEART FAILURE, GERD, ANXIETY, DEPRESSION AND VANES. PHYSICIAL EXAMINATION: RESTING B.P.: 130/83 RESTING H.R.: 62 RESTING EKG: SINUS RHYTHM, OLD LATERAL MYOCARDIAL INFARCTION. PROTOCOL: LEXISCAN EXERCISE TIME: 3:30 B.P. AT PEAK STRESS: 118/75 IMPRESSION: LEXISCAN INJECTED, FOLLOWED BY CARDIOLITE PER PROTOCOL. SEE NUCLEAR MEDICINE REPORT. NO SUPRAVENTRICULAR TACHYCARDIA, VENTRICULAR TACHYCARDIA, PREMATURE VENTRICULAR COMPLEXES OR PREMATURE ATRIAL COMPLEXES NOTED. PATIENT REPORTS CHEST PAIN 7/10 THROUGHOUT PROCEDURE.
--- NOTE | 2019-12-07 16:07 | CON ---
Date of Consultation: 12/07/2019 Reason For Consultation: Chest pain and hypertension. History Of Present Illness: Ms. Lindsay is a 54-year-old woman. She is a [id number]. She has stage IV lung cancer. She is status post lobectomy. She does have a history of coronary artery dise ase, depression, Haque esophagus, rheumatoid arthritis, pericarditis, hypertension, congestive hear t failure, and CSF leak in the past. She recently had an echocardiogram in November of 2019, showing no pericardial effusion. A Lexiscan in March of 2019 was normal. Her EKG in November of 2019 was unremark able. She came in with diffuse chest pain that lasted hours throughout the entire chest without any radiation. No nausea, vomiting, diaphoresis, PND, orthopnea, pedal edema, palpitations, or syncope. Her EKG was unremarkable. Her troponin was negative. Her creatinine was 1.9. Past Medical History: As stated above. Allergies: INCLUDE DEMEROL. Review of Systems: Positive for being a DNR. Social History: Negative. Family History: Noncontributory. Medications: At home include Lasix, inhalers, Neurontin, Synthroid, Toprol, prednisone, and metoprol ol. Physical Examination: General: She was very pleasant. No acute distress. Vital Signs: Stable. She was afebrile. She was in a sinus rhythm. HEENT: Negative. Neck: Supple without any bruit, lymphadenopathy, JVD, or thyromegaly. Chest: Clear to auscultation and percussion. Cardiac: Revealed a regular rhythm and rate. No murmurs, gallops, or rubs. Abdomen: Benign. Extremities: Revealed no clubbing, cyanosis, or edema. Diagnostic Data: As stated earlier. Impression And Plan: Atypical chest pain, most likely secondary to lung cancer or possibly her rheum atoid arthritis and maybe pericarditis. She just had an echo last month and I do not think we need t o repeat that. A Lexiscan that was ordered today was perfectly normal without any evidence of any is chemia. I personally would continue her present regimen. Just in case this is occult pericarditis, certainly increasing her colchicine which she takes at home on an as-needed basis and maybe increasin g her prednisone to 10 mg daily may be reasonable, but from my standpoint, she can go home whenever i t is okay with Dr. Acosta. Her other problems include hypertension, COPD, history of lung cancer, rh eumatoid arthritis, gastroesophageal reflux disease, depression, Haque esophagus, and coronary sobeida ry disease seems to be stable. OBDULIA/ANUPAM Voice ID: [id number] Report ID: [id number]
--- NOTE | 2019-12-07 16:07 | RAD REPORT ---
EXAM DESCRIPTION: CT - Head Brain Wo Cont - 12/07/2019 4:01 pm CLINICAL HISTORY: persistance headache COMPARISON: Head Brain Wo Cont dated 09/13/2019 TECHNIQUE: Axial 5 mm thick images of the head were obtained without IV contrast. All CT scans are performed using dose optimization technique as appropriate and may include automated exposure control or mA/KV adjustment according to patient size. FINDINGS: No intracranial hemorrhage, mass, edema or shift of mid-line structures. No acute infarcti on changes seen. No abnormal extra-axial fluid collections. Ventricles are normal. Mastoid air cells and visualized portions of the paranasal sinuses are clear. No acute bony findings. No significant changes the September 13 study. IMPRESSION: Negative non-contrast CT head examination.
[2019-12-07 17:17] VITALS: BP 118/68; TEMP 98.3
[2019-12-07 17:24] LABS: CKMB Creatine Kinase MB < 1.0 ng/mL (0.3-3.6); Creatine Phosphokinase 46 U/L (26-192); Troponin I < 0.02 ng/mL (0.0-0.045)
[2019-12-07] MEDS ORDERED: HEPARIN 500 UNIT/5 ML SYR IV PRN (17:31)
[2019-12-07 18:35] VITALS: O2SAT 96
== END 2019-12-07 18:08 | disposition home or self-care (01) ==
LOC: ER 23:45 → ERHOLD 12-07 04:33 → 2ND 12-07 04:56
PROVIDERS: ADMIT Family Medicine; ATTEND Family Medicine
DX: R07.89 Other chest pain (principal); I13.0 Hypertensive heart and chronic kidney disease with heart failure and stage 1 through stage 4 chronic kidney disease, or unspecified chronic kidney disease; N18.2 Chronic kidney disease, stage 2 (mild); I50.32 Chronic diastolic (congestive) heart failure; D63.1 Anemia in chronic kidney disease; C34.90 Malignant neoplasm of unspecified part of unspecified bronchus or lung; J44.9 Chronic obstructive pulmonary disease, unspecified; M06.9 Rheumatoid arthritis, unspecified; I31.9 Disease of pericardium, unspecified; E03.9 Hypothyroidism, unspecified; K21.9 Gastro-esophageal reflux disease without esophagitis; G89.29 Other chronic pain; F41.8 Other specified anxiety disorders; G25.81 Restless legs syndrome; I25.10 Atherosclerotic heart disease of native coronary artery without angina pectoris; K22.70 Barrett's esophagus without dysplasia; Z79.52 Long term (current) use of systemic steroids; Z90.2 Acquired absence of lung [part of]; Z88.6 Allergy status to analgesic agent; Z88.8 Allergy status to other drugs, medicaments and biological substances; Z66 Do not resuscitate; Z80.1 Family history of malignant neoplasm of trachea, bronchus and lung; Z80.0 Family history of malignant neoplasm of digestive organs; Z80.3 Family history of malignant neoplasm of breast; Z82.49 Family history of ischemic heart disease and other diseases of the circulatory system; Z82.61 Family history of arthritis
CPT/HCPCS: 93005; 93017; 85025; 80048; 36415; 83735; 82550 ×2; 85610; 80076; 84484 ×3; 82553 ×2; 83880; 70450; 71045; 94640; 78452; 96375; 96374; 99285; J1644 ×2; J2270; J1170 ×2; J2785; J1642; J2405 ×3; A9500; G0378 ×2; J7512; J7606

== ENCOUNTER 2019-12-17 01:43 | Emergency (ER) | payer OTHER ==
--- OUTSIDE RECORDS SUMMARY | 2019-12-17 01:46 | XMS REPORT ---
:1965 Author Organization [facility] t Address [address] [place] [address] Dr. Cloud [address] [place] [id number] Care Team Providers Name Role Phone Unavailable Unavailable Unavailable Problems This patient has no known problems. Allergies, Adverse Reactions, Alerts This patient has no known allergies or adverse reactions. Medications This patient has no known medications. Results Test Description Test Time Test Comments Text Results Atomic Results Result Comments CRISSY DYE, 2019-10-09 Reason for FINAL REPORT PATIENT NON-SPECIFIC, UP TO 1 08:26:00 exam:->Chronic Pain ID: [id number] A HOUR fluoroscopic unit was utilized for a procedure performed in the operating room. No interpretation was requested. Please refer to the operative report regarding findings. Please refer to PACS for patient radiation dose information. Signed: Jia Linn MDRchristoph Verified Date/Time: 10/09/2019 08:26:53 Reading Location: [facility] Radiology Reading Room
[2019-12-17] MEDS ORDERED: MORPHINE 4 MG/ML SYR ONE ×2 (02:21→04:21)
[2019-12-17] MEDS ORDERED: ONDANSETRON 4 MG/2 ML VIAL ONE (02:22)
[2019-12-17] MEDS ORDERED: NA CHLORIDE 0.9% 1,000 ML ONE (02:22)
[2019-12-17 02:40] LABS: Protime INR 0.97
[2019-12-17 02:43] LABS: Absolute Lymphocytes (CBC) 1.7 K/uL (0.7-4.9); Basophils % 0.3 % (0-1.3); Hematocrit 31.4 % (36.0-45.0); Lymphocytes % 30.2 % (15.3-44.8); MPV 8.4 fL (7.6-11.3); RBC Red Blood Cell Count 3.34 M/uL (3.86-4.86)
[2019-12-17 02:56] LABS: ALT/SGPT 18 U/L (12-78); AST/SGOT 12 U/L (15-37); Albumin 3.6 g/dL (3.4-5.0); Alkaline Phosphatase 67 U/L (45-117); BUN Blood Urea Nitrogen 34 mg/dL (7-18); Bicarbonate 25 mmol/L (21-32); Bilirubin Direct < 0.1 mg/dL (0-0.2); Bilirubin Total 0.2 mg/dL (0.2-1.0); Glucose Level 103 mg/dL (74-106); NT PRO-BNP 389 pg/mL (<125); Protein, Total 7.1 g/dL (6.4-8.2); Sodium Level 141 mmol/L (136-145); Troponin (Emerg Dept Use Only) < 0.02 ng/mL (0.0-0.045)
--- NOTE | 2019-12-17 04:50 | EDPHYS ---
Physician Documentation [facility] Name: Anisha Lindsay Age: 54 yrs Sex: Female : 1965 Arrival Date: 12/17/2019 Time: 01:44 Bed 6 Private MD: ED Physician Jay Kebede HPI: 12/16 02:13 This 54 yrs old Female presents to ER via EMS with complaints of Pain. pkl 02:13 The patient or guardian reports chest pain that is located primarily in the both sides pkl of chest. Onset: today. Associated signs and symptoms: Pertinent positives: pain both legs. The chest pain is described as dull. Historical: - Allergies: 01:57 Adhesives; ea :57 Celebrex; ea :57 Demerol; ea - Home Meds: 01:57 Fentanyl Pump [Active]; trazodone 100 mg Oral tab 1 tab nightly [Active]; sertraline ea 100 mg Oral tab 1 tab nightly [Active]; Protonix 40 mg Oral TbEC 1 tab once daily [Active]; prednisone 20 mg Oral tab 1 tab 2 times per day [Active]; metoprolol tartrate 50 mg Oral tab 1 tab 2 times per day [Active]; levothyroxine 75 mcg tab 1 tab once daily [Active]; Lasix 40 mg Oral tab 1 tab as needed [Active]; gabapentin 400 mg Oral cap 1 cap BID PRN [Active]; Colestid Oral 1 packet as needed [Active]; albuterol sulfate 90 mcg/actuation Inhl HFAA 2 puffs as needed [Active]; - PMHx: 01:57 Adenocarcinoma of the Lungs; Anxiety; CHF; COPD; CSF leak; Depression; Hypertension; ea Hypothyroidism; Myocardial infarction; osteo arthirtis; pericardial effusion; pericarditis; Renal Disease; Rheumatoid Arthritis; Stage 4 Lung Cencer- currently on Chemo; - Immunization history:: Adult Immunizations up to date. - Social history:: Smoking status: Patient denies any tobacco usage or history of. ROS: 02:13 Eyes: Negative for injury, pain, redness, and discharge, ENT: Negative for injury, pkl pain, and discharge, Neck: Negative for injury, pain, and swelling. 02:13 Cardiovascular: Positive for chest pain, of the both sides of chest. 02:13 Respiratory: Negative for cough, shortness of breath. 02:13 Abdomen/GI: Negative for abdominal pain, nausea, vomiting, and diarrhea. 02:13 Back: Negative for acute changes. 02:13 : Negative for urinary symptoms. 02:13 MS/extremity: Positive for pain, of the both legs. 02:13 Skin: Negative for rash. 02:13 Neuro: Negative for altered mental status. Exam: 02:17 Head/Face: Normocephalic, atraumatic. Eyes: Pupils equal round and reactive to light, pkl extra-ocular motions intact. Lids and lashes normal. Conjunctiva and sclera are non-icteric and not injected. Cornea within normal limits. Periorbital areas with no swelling, redness, or edema. ENT: Nares patent. No nasal discharge, no septal abnormalities noted. Tympanic membranes are normal and external auditory canals are clear. Oropharynx with no redness, swelling, or masses, exudates, or evidence of obstruction, uvula midline. Mucous membranes moist. Neck: Trachea midline, no thyromegaly or masses palpated, and no cervical lymphadenopathy. Supple, full range of motion without nuchal rigidity, or vertebral point tenderness. No Meningismus. Chest/axilla: Normal chest wall appearance and motion. Nontender with no deformity. No lesions are appreciated. Cardiovascular: Regular rate and rhythm with a normal S1 and S2. No gallops, murmurs, or rubs. Normal PMI, no JVD. No pulse deficits. Respiratory: Lungs have equal breath sounds bilaterally, clear to auscultation and percussion. No rales, rhonchi or wheezes noted. No increased work of breathing, no retractions or nasal flaring. Abdomen/GI: Soft, non-tender, with normal bowel sounds. No distension or tympany. No guarding or rebound. No evidence of tenderness throughout. Back: No spinal tenderness. No costovertebral tenderness. Full range of motion. Skin: Warm, dry with normal turgor. Normal color with no rashes, no lesions, and no evidence of cellulitis. MS/ Extremity: Pulses equal, no cyanosis. Neurovascular intact. Full, normal range of motion. Neuro: Awake and alert, GCS 15, oriented to person, place, time, and situation. Cranial nerves II-XII grossly intact. Motor strength 5/5 in all extremities. Sensory grossly intact. Cerebellar exam normal. Normal gait. Vital Signs: 01:46 BP 132 / 81; Pulse 83; Resp 18; Temp 98.3; Pulse Ox 100% on R/A; Pain 10/10; ea 02:11 Weight 105.23 kg (R); lp1 02:37 BP 110 / 64; Pulse 74; Resp 16; Pulse Ox 100% on R/A; sg 04:32 BP 113 / 82; Pulse 61; Resp 18; Pulse Ox 97% ; ea MDM: 01:45 Patient medically screened. pkl 04:45 Data reviewed: vital signs, nurses notes, lab test result(s), radiologic studies, CT pkl scan, plain films. ED course: Patient feeling better. Discussed lab. and CT Scan results with patient. Advised to follow up with PCP in 1 to 2 days. To return if symptoms are worse. patient understood instructions. 12/16 02:10 Order name: Basic Metabolic Panel; Complete Time: 03:02 pkl 12/16 02:10 Order name: CBC with Diff; Complete Time: 02:52 pkl 12/16 02:10 Order name: LFT's; Complete Time: 03:02 pkl 12/16 02:10 Order name: Magnesium; Complete Time: 03:02 pkl 12/16 02:10 Order name: NT PRO-BNP; Complete Time: 03:02 pkl 12/16 02:10 Order name: PT-INR; Complete Time: 02:52 pkl 12/16 02:10 Order name: Troponin (emerg Dept Use Only); Complete Time: 03:02 pkl 12/16 02:10 Order name: XRAY Chest (1 view) pkl 12/16 02:37 Order name: CRP; Complete Time: 04:40 pkl 12/16 02:39 Order name: Lactate; Complete Time: 04:51 pkl 12/16 02:39 Order name: Procalcitonin; Complete Time: 04:40 pkl 12/16 03:07 Order name: CT Chest Wo Con pkl 12/16 02:10 Order name: EKG; Complete Time: 02:11 pkl 12/16 02:10 Order name: Cardiac monitoring; Complete Time: 02:38 pkl 12/16 02:10 Order name: EKG - Nurse/Tech; Complete Time: 02:38 pkl 12/16 02:10 Order name: IV Saline Lock; Complete Time: 02:37 pkl 12/16 02:10 Order name: Labs collected and sent; Complete Time: 02:37 pkl 12/16 02:10 Order name: O2 Per Protocol; Complete Time: 02:37 pkl 12/16 02:10 Order name: O2 Sat Monitoring; Complete Time: 02:37 pkl Administered Medications: 02:29 Drug: morphine 4 mg Route: IVP; Site: left antecubital; sg 03:30 Follow up: Response: No adverse reaction; Pain is decreased ea 02:29 Drug: Zofran (Ondansetron) 4 mg Route: IVP; Site: left antecubital; sg 03:30 Follow up: Response: No adverse reaction ea 02:30 Drug: NS 0.9% 1000 ml Route: IV; Rate: 75 ml/hr; Site: left antecubital; sg 06:00 Follow up: Response: No adverse reaction; IV Status: Completed infusion; IV Intake: ea 1000ml 04:22 Drug: morphine 4 mg Route: IVP; Site: left antecubital; ea 06:17 Follow up: Response: No adverse reaction; Pain is decreased; RASS: Alert and Calm (0) ea Disposition: 12/17/19 04:49 Discharged to Home. Impression: Chest pain. Pain both legs. - Condition is Stable. - Prescriptions for Tylenol- Codeine #3 300-30 mg Oral Tablet - take 1 tablet by ORAL route every 8 hours As needed; 20 tablet. Ativan 1 mg Oral Tablet - take 1 tablet by ORAL route 2 times per day As needed; 10 tablet. - Medication Reconciliation Form, Thank You Letter, Antibiotic Education, Prescription Opioid Use form. - Follow up: Private Physician; When: 1 - 2 days; Reason: Re-evaluation by your physician. - Problem is new. - Symptoms have improved. Signatures: Dispatcher [employer] EDAashish Patel RN Jay Montiel MD MD pkl Antunez, Elena, RN RN ea Corrections: (The following items were deleted from the chart) 06:00 02:54 BLOOD CULTURE*+[id number].BRZ ordered. [facility] 06:16 04:49 12/17/2019 04:49 Discharged to Home. Impression: Chest pain. Pain both legs. ea Condition is Stable. Forms are Medication Reconciliation Form, Thank You Letter, Antibiotic Education, Prescription Opioid Use. Follow up: Private Physician; When: 1 - 2 days; Reason: Re-evaluation by your physician. Problem is new. Symptoms have improved. pkl
--- NOTE | 2019-12-17 04:50 | ER ---
Nurse's Notes [facility] Name: Anisha Lindsay Age: 54 yrs Sex: Female : 1965 Arrival Date: 12/17/2019 Time: 01:44 Bed 6 Private MD: Diagnosis: Chest pain. Pain both legs Presentation: 12/16 01:46 Chief complaint: EMS states: Pt reports pain in her ribs and legs, denies injury or ea trauma, reports having chronic pain and RA, as well as having Bilateral lung cancer, pain controlled at home with fentanyl pump. Chief complaint: EMS reports patient was ambulatory to end of driveway to meet crew at the ambulance, medic reports 1/4 of mile walk. Coronavirus screen: Proceed with normal triage. Ebola Screen: Patient negative for fever greater than or equal to 101.5 degrees Fahrenheit, and additional compatible Ebola Virus Disease symptoms Patient denies exposure to infectious person. Patient denies travel to an Ebola-affected area in the 21 days before illness onset. No symptoms or risks identified at this time. Initial Sepsis Screen: Does the patient meet any 2 criteria? No. Patient's initial sepsis screen is negative. Does the patient have a suspected source of infection? No. Patient's initial sepsis screen is negative. Risk Assessment: Do you want to hurt yourself or someone else? Patient reports no desire to harm self or others. Onset of symptoms was December 17, 2019. Care prior to arrival: Medication(s) given: Toradol 30 mg IVP x1 IV initiated. 20 GA, in the left antecubital area. 01:46 Method Of Arrival: EMS: [facility] ea 01:46 Acuity: CHEN 3 sg Historical: - Allergies: 01:57 Adhesives; ea 01:57 Celebrex; ea 01:57 Demerol; ea - Home Meds: 01:57 Fentanyl Pump [Active]; trazodone 100 mg Oral tab 1 tab nightly [Active]; sertraline ea 100 mg Oral tab 1 tab nightly [Active]; Protonix 40 mg Oral TbEC 1 tab once daily [Active]; prednisone 20 mg Oral tab 1 tab 2 times per day [Active]; metoprolol tartrate 50 mg Oral tab 1 tab 2 times per day [Active]; levothyroxine 75 mcg tab 1 tab once daily [Active]; Lasix 40 mg Oral tab 1 tab as needed [Active]; gabapentin 400 mg Oral cap 1 cap BID PRN [Active]; Colestid Oral 1 packet as needed [Active]; albuterol sulfate 90 mcg/actuation Inhl HFAA 2 puffs as needed [Active]; - PMHx: 01:57 Adenocarcinoma of the Lungs; Anxiety; CHF; COPD; CSF leak; Depression; Hypertension; ea Hypothyroidism; Myocardial infarction; osteo arthirtis; pericardial effusion; pericarditis; Renal Disease; Rheumatoid Arthritis; Stage 4 Lung Cencer- currently on Chemo; - Immunization history:: Adult Immunizations up to date. - Social history:: Smoking status: Patient denies any tobacco usage or history of. Screenin:36 Abuse screen: Denies threats or abuse. Denies injuries from another. Nutritional sg screening: No deficits noted. Tuberculosis screening: No symptoms or risk factors identified. Never had TB. Fall Risk None identified. Assessment: 02:35 Reassessment: Patient appears in no apparent distress at this time. General: Appears in sg no apparent distress. well groomed, well developed, well nourished, Behavior is calm, cooperative, appropriate for age. Pain: Complains of pain in chest, right leg and left leg Quality of pain is described as aching. Neuro: Level of Consciousness is awake, alert, obeys commands, Oriented to person, place, time, Speech is normal, Facial symmetry appears normal. Cardiovascular: Capillary refill is brisk in bilateral fingers Patient's skin is warm and dry. Chest pain is described as vague. Respiratory: Airway is patent Respiratory effort is even, unlabored, Respiratory pattern is regular, symmetrical. GI: Abdomen is round non-distended. : No signs and/or symptoms were reported regarding the genitourinary system. EENT: No signs and/or symptoms were reported regarding the EENT system. Derm: Skin is pink, warm \T\ dry. Musculoskeletal: Circulation, motion, and sensation intact. Range of motion: intact in all extremities. 03:22 Reassessment: Patient and/or family updated on plan of care and expected duration. Pain ea level reassessed. Patient is alert, oriented x 3, equal unlabored respirations, skin warm/dry/pink. 03:45 Reassessment: Patient and/or family updated on plan of care and expected duration. Pain ea level reassessed. Patient is alert, oriented x 3, equal unlabored respirations, skin warm/dry/pink. Multiple failed attempts for second blood cultures. First set sent to lab. 04:10 Reassessment: Patient and/or family updated on plan of care and expected duration. Pain ea level reassessed. Patient is alert, oriented x 3, equal unlabored respirations, skin warm/dry/pink. Returned from CT. 04:46 Reassessment: Patient and/or family updated on plan of care and expected duration. Pain ea level reassessed. Patient is alert, oriented x 3, equal unlabored respirations, skin warm/dry/pink. Provider at bedside updated pt on plan of care. 05:00 Reassessment: Patient and/or family updated on plan of care and expected duration. Pain ea level reassessed. Patient is alert, oriented x 3, equal unlabored respirations, skin warm/dry/pink. Discharge instruction given to patient, verbalized the understanding of instruction. Pt awaiting on to pick her up. 06:00 Reassessment: Patient and/or family updated on plan of care and expected duration. Pain ea level reassessed. Patient is alert, oriented x 3, equal unlabored respirations, skin warm/dry/pink. Pt left ED via wheelchair, tolerating well. Vital Signs: 01:46 BP 132 / 81; Pulse 83; Resp 18; Temp 98.3; Pulse Ox 100% on R/A; Pain 10/10; ea 02:11 Weight 105.23 kg (R); lp1 02:37 BP 110 / 64; Pulse 74; Resp 16; Pulse Ox 100% on R/A; sg 04:32 BP 113 / 82; Pulse 61; Resp 18; Pulse Ox 97% ; ea ED Course: 01:44 Patient arrived in ED. ds1 01:45 Jay Kebede MD is Attending Physician. pkl 01:54 Triage completed. ea 01:57 Arm band placed on. ea 01:57 Patient has correct armband on for positive identification. Bed in low position. Call ea light in reach. Side rails up X2. 02:35 Initial lab(s) drawn, by me, sent to lab. Maintain EMS IV. Dressing intact. Good blood sg return noted. Site clean \T\ dry. Gauge \T\ site: 20 G LAC. IV is patent, with fluids infusing freely, with good blood return. 02:43 XRAY Chest (1 view) In Process Unspecified. EDMS 02:59 Xiomara Poon, RN is Primary Nurse. ea 04:07 by ED staff, sent to lab. a lactate has been drawn. sg 04:12 CT Chest Wo Con In Process Unspecified. EDMS 05:01 No provider procedures requiring assistance completed. ea 05:55 IV discontinued, intact, bleeding controlled, No redness/swelling at site. Pressure ea dressing applied. Administered Medications: 02:29 Drug: morphine 4 mg Route: IVP; Site: left antecubital; sg 03:30 Follow up: Response: No adverse reaction; Pain is decreased ea 02:29 Drug: Zofran (Ondansetron) 4 mg Route: IVP; Site: left antecubital; sg 03:30 Follow up: Response: No adverse reaction ea 02:30 Drug: NS 0.9% 1000 ml Route: IV; Rate: 75 ml/hr; Site: left antecubital; sg 06:00 Follow up: Response: No adverse reaction; IV Status: Completed infusion; IV Intake: ea 1000ml 04:22 Drug: morphine 4 mg Route: IVP; Site: left antecubital; ea 06:17 Follow up: Response: No adverse reaction; Pain is decreased; RASS: Alert and Calm (0) ea Intake: 06:00 IV: 1000ml; Total: 1000ml. ea Outcome: 04:49 Discharge ordered by . mike 05:01 Discharge instructions given to patient, Instructed on discharge instructions, follow ea up and referral plans. medication usage, Demonstrated understanding of instructions, follow-up care, medications, Prescriptions given X 2. 06:00 Discharged to home via wheelchair, with family. ea 06:00 Condition: stable 06:16 Patient left the ED. ea Signatures: Dispatcher [employer] EDMS Aashish Alejandro RN RN sg Lam, Pin, MD MD pkl Sanford, Demi ds1 Carmen Demarco RN RN lp1 Xiomara Poon RN RN bernice Corrections: (The following items were deleted from the chart) 02:57 01:46 Acuity: CHEN 4 ea sg 06:17 05:30 Response: No adverse reaction; Pain is decreased ea ea
[2019-12-17 06:22] VITALS: TEMP 98.3
[2019-12-17 06:24] VITALS: BP 113/82; O2SAT 97
--- NOTE | 2019-12-17 07:22 | EKG ---
Test Date: 2019-12-17 Test Time: 02:23:39 Cryptanalyst: ADDIE MEASUREMENT RESULTS: Intervals: Rate: 72 MD: 146 QRSD: 84 QT: 390 QTc: 427 [place]: P: 24 MD: 146 QRS: 40 T: 31 INTERPRETIVE STATEMENTS: Normal sinus rhythm Normal ECG Compared to ECG 12/06/2019 23:51:58 No significant changes Electronically Signed On 12-17-19 07:21:49 CDT by [employer]
--- NOTE | 2019-12-17 08:38 | RAD REPORT ---
EXAM DESCRIPTION: Ermelinda Single View12/17/2019 2:43 am CLINICAL HISTORY: Chest pain COMPARISON: December 07, 2019 FINDINGS: No change in the left upper lobe opacity. Main lungs appear clear of acute infiltrate. Heart is normal size. A central venous line has its tip superior vena cava. Old rib fractures noted
--- NOTE | 2019-12-17 11:30 | RAD REPORT ---
EXAM DESCRIPTION: CT - Thorax Wo [place] - 12/17/2019 6:30 am CLINICAL HISTORY: The patient is 54 years old and is Female; PAIN TECHNIQUE: Axial computed tomography images of the chest without intravenous contrast. Sagittal an d coronal reformatted images were created and reviewed. This CT exam was performed using one or mor e of the following dose reduction techniques: automated exposure control, adjustment of the mA and/ or kV according to patient size, and/or use of iterative reconstruction technique. COMPARISON: CT of the chest December 03, 2019 FINDINGS: LUNGS: Wedge-shaped area of consolidation/atelectasis demonstrating air bronchograms and minimal bronchiectasis within the left upper lobe is noted. The overall appearance is stable. A degr ee of scarring within this area is also suggested. The lungs are otherwise clear. PLEURAL SPACE: Unremarkable. No pneumothorax. No significant effusion. HEART: There is a trace pericardial effusion. MEDIASTINUM: The tracheobronchial tree is widely patent. BONES/JOINTS: Mild multilevel degenerative change of the spine is present. SOFT TISSUES: The soft tissues are normal. VASCULATURE: Unremarkable. No thoracic aortic aneurysm. LYMPH NODES: Unremarkable. No enlarged lymph nodes. GALLBLADDER AND BILE DUCTS: The gallbladder surgically absent. TUBES, LINES AND DEVICES: A right chest port is present with the tip at the SVC/RA junction. IMPRESSION: No significant change in the area of wedge-shaped consolidation/atelectasis scarri ng in the left upper lobe. The lungs are otherwise clear. Electronically signed by: Tahira Hyman MD 12/17/2019 4:29 AM CDT Due to temporary technical issues with the PACS/Fluency reporting system, reports are being signed by the in house radiologist as a courtesy to ensure prompt reporting. The interpreting radiologist is f ully responsible for the content of the report.
== END 2019-12-17 06:16 | disposition home or self-care (01) ==
LOC: ER 01:43
DX: M79.605 Pain in left leg (principal); M79.604 Pain in right leg; C34.91 Malignant neoplasm of unspecified part of right bronchus or lung; I10 Essential (primary) hypertension; E03.9 Hypothyroidism, unspecified; F32.9 Major depressive disorder, single episode, unspecified; I50.9 Heart failure, unspecified; Z88.5 Allergy status to narcotic agent; Z88.8 Allergy status to other drugs, medicaments and biological substances; Z91.048 Other nonmedicinal substance allergy status
CPT/HCPCS: 93005; 85025; 80048; 36415; 83735; 85610; 80076; 83605; 84484; 84145; 83880; 86140; 71250; 71045; J7030; J2405; 96361; 96374; 96375; 99284

== ENCOUNTER 2019-12-18 21:53 | Emergency (ER) | payer OTHER ==
--- OUTSIDE RECORDS SUMMARY | 2019-12-18 21:56 | XMS REPORT ---
:1965 Author Organization [facility] t Address [address] [place] [address] Dr. Cloud [address] [place] [id number] Care Team Providers Name Role Phone Unavailable [...] UP TO 1 08:26:00 exam:->Chronic Pain ID: [id number] 56 A HOUR fluoroscopic unit was utilized for a procedure performed in the operating room. No interpretation was requested. Please refer to the operative report regarding findings. Please refer to PACS for patient radiation dose information. Signed: Jia Linn MDRchristoph Verified Date/Time: 10/09/2019 08:26:53 Reading Location: [facility] Radiology Reading Room
[2019-12-18] MEDS ORDERED: MORPHINE 4 MG/ML SYR ONE (22:42)
[2019-12-18] MEDS ORDERED: ONDANSETRON 4 MG/2 ML VIAL ONE (22:42)
[2019-12-18 23:38] LABS: Absolute Lymphocytes (CBC) 1.4 K/uL (0.7-4.9); Basophils % 0.3 % (0-1.3); Hematocrit 32.4 % (36.0-45.0); Lymphocytes % 21.6 % (15.3-44.8); MPV 8.2 fL (7.6-11.3); RBC Red Blood Cell Count 3.48 M/uL (3.86-4.86)
[2019-12-19 00:19] LABS: BUN Blood Urea Nitrogen 25 mg/dL (7-18); Bicarbonate 27 mmol/L (21-32); Glucose Level 104 mg/dL (74-106); NT PRO-BNP 1979 pg/mL (<125); Potassium 3.9 mmol/L (3.5-5.1); Sodium Level 142 mmol/L (136-145); Troponin (Emerg Dept Use Only) < 0.02 ng/mL (0.0-0.045)
--- NOTE | 2019-12-19 01:03 | EDPHYS ---
Physician Documentation [facility] Name: Anisha Lindsay Age: 54 yrs Sex: Female : 1965 Arrival Date: 12/18/2019 Time: 21:54 Bed 26 Private MD: ED Physician Bean Conrad HPI: 12/17 22:01 This 54 yrs old Female presents to ER via EMS with complaints of Chest Pain. rn 22:01 The patient or guardian reports chest pain that is located primarily in the chest rn diffusely. Onset: yesterday. The pain does not radiate. Associated signs and symptoms: Pertinent negatives: abdominal pain, diaphoresis, dizziness, near syncope, palpitations, shortness of breath, syncope, vomiting. The chest pain is described as a heaviness. Duration: The patient or guardian reports multiple episodes, that are intermittent. Modifying factors: The symptoms are alleviated by nothing. the symptoms are aggravated by nothing. Severity of pain: At its worst the pain was moderate in the emergency department the pain has improved. The patient has experienced similar episodes in the past. The patient has been recently seen at the [facility] Emergency Department, yesterday. Reports chest pain again, seen here yesterday and discharged, reports restless legs are acting up again, having chest pain, diarrhea, chronic back pain. Denies fever/new cough/sob. Reports came in because "tired of being in pain". . Historical: - Allergies: 21:59 Adhesives; bb 21:59 Celebrex; bb 21:59 Demerol; bb - Home Meds: 21:59 albuterol sulfate 90 mcg/actuation Inhl HFAA 2 puffs as needed [Active]; Colestid Oral bb 1 packet as needed [Active]; FENTANYL PUMP [Active]; gabapentin 400 mg Oral cap 1 cap BID PRN [Active]; Lasix 40 mg Oral tab 1 tab as needed [Active]; levothyroxine 75 mcg tab 1 tab once daily [Active]; metoprolol tartrate 50 mg Oral tab 1 tab 2 times per day [Active]; prednisone 20 mg Oral tab 1 tab 2 times per day [Active]; Protonix 40 mg Oral TbEC 1 tab once daily [Active]; sertraline 100 mg Oral tab 1 tab nightly [Active]; trazodone 100 mg Oral tab 1 tab nightly [Active]; - PMHx: 21:59 Adenocarcinoma of the Lungs; Anxiety; CHF; COPD; CSF leak; Depression; Hypertension; bb Hypothyroidism; Myocardial infarction; osteo arthirtis; pericardial effusion; pericarditis; Renal Disease; Rheumatoid Arthritis; Stage 4 Lung Cencer- currently on Chemo; - Immunization history:: Adult Immunizations up to date. - Social history:: Smoking status: unknown. - Family history:: not pertinent. - Hospitalizations: : The patient was recently seen at [facility]. ROS: 22:01 Constitutional: Negative for fever, chills, and weight loss, Eyes: Negative for injury, rn pain, redness, and discharge, Neck: Negative for injury, pain, and swelling, Cardiovascular: + chest pain Respiratory: Negative for shortness of breath, cough, wheezing, and pleuritic chest pain, Abdomen/GI: Negative for abdominal pain, nausea, vomiting, and constipation, MS/Extremity: Negative for injury and deformity, Skin: Negative for injury, rash, and discoloration, Neuro: Negative for headache, numbness, tingling, and seizure. Exam: 22:01 Constitutional: This is a well developed, well nourished patient who is awake, alert rn Head/Face: Normocephalic, atraumatic. ENT: MMM, no stridor Cardiovascular: Regular rate and rhythm. No JVD. No pulse deficits. Respiratory: Mild tachypnea, no retractions, clear bilateral Abdomen/GI: soft, non-tender MS/ Extremity: Pulses equal, no cyanosis. Neurovascular intact. Full, normal range of motion. Equal circumference. Neuro: Awake and alert, GCS 15, oriented to person, place, time, and situation. Motor strength 5/5 in all extremities. Sensory grossly intact. Cerebellar exam normal. Vital Signs: 21:55 Weight 104.33 kg (R); Height 5 ft. 3 in. (160.02 cm) (R); Pain 10/10; bb 22:00 BP 150 / 105; Pulse 83; Resp 14; Pulse Ox 99% ; Pain 7/10; ls4 22:02 BP 162 / 95 LA (auto/lg); Pulse 99; Resp 22; Temp 98.8(TE); Pulse Ox 98% ; Pain 10/10; jp3 22:48 BP 150 / 105; Pulse 85; Resp 17; Pulse Ox 99% on R/A; Pain 3/10; ls4 23:58 BP 133 / 90; Pulse 75; Resp 14; Pulse Ox 99% on R/A; Pain 5/10; ls4 12/18 00:16 BP 115 / 93; Pulse 88; Resp 14; Pulse Ox 99% on R/A; Pain 5/10; ls4 12/17 21:55 Body Mass Index 40.74 (104.33 kg, 160.02 cm) bb MDM: 12/17 21:56 Patient medically screened. rn 22:26 ED course: Normal lexiscan 12/07/19, had ECHO 1 month ago. Neg trop and ecg yesterday rn here in ER. . 22:27 ED course: Nitro helped BP but did not help chest pain.. rn 12/18 00:59 Differential diagnosis: acute myocardial infarction, anxiety, congestive heart failure rn costochondritis, esophagitis, gastritis, gastroesophageal reflux disease (GERD), peptic ulcer disease, pleurisy, pneumonia, pneumothorax. Data reviewed: vital signs, nurses notes, lab test result(s), EKG, radiologic studies, plain films, and as a result, I will discharge patient. Test interpretation: by ED physician or midlevel provider: ECG, plain radiologic studies, CXR neg for acute findings, still KOJO opacity from her cancer. . Counseling: I had a detailed discussion with the patient and/or guardian regarding: the historical points, exam findings, and any diagnostic results supporting the discharge/admit diagnosis, lab results, radiology results, the need for outpatient follow up, to return to the emergency department if symptoms worsen or persist or if there are any questions or concerns that arise at home. Response to treatment: the patient's symptoms have markedly improved after treatment, and as a result, I will discharge patient. Special discussion: I discussed with the patient/guardian in detail that at this point there is no indication for admission to the hospital. It is understood, however, that if the symptoms persist or worsen the patient needs to return immediately for re-evaluation. ED course: Much more comfortable, plans on calling her pain specialist in AM. No acute findings in labs or cxr. Recent neg stress test last week, improved/normal vitals. Will dc home with return precautions.. 12/17 21:58 Order name: CBC with Diff; Complete Time: 23:45 rn 12/17 21:58 Order name: Basic Metabolic Panel; Complete Time: 00:21 rn 12/17 21:58 Order name: BNP; Complete Time: 00:21 rn 12/17 21:58 Order name: Troponin (emerg Dept Use Only); Complete Time: 00:21 rn 12/17 21:58 Order name: XRAY Chest (1 view) rn 12/17 21:58 Order name: IV Start; Complete Time: 22:47 rn 12/17 21:58 Order name: EKG - Nurse/Tech; Complete Time: 22:47 rn Administered Medications: 12/17 22:45 Drug: morphine 4 mg Route: IVP; Site: left antecubital; ls4 23:10 Follow up: Response: No adverse reaction; Marked relief of symptoms ls4 22:47 Drug: Zofran (Ondansetron) 4 mg Route: IVP; Site: left antecubital; ls4 23:09 Follow up: Response: No adverse reaction; Marked relief of symptoms ls4 Disposition: 12/19/19 01:02 Discharged to Home. Impression: Chest pain, unspecified, Pain in unspecified joint, Diarrhea, unspecified. - Condition is Stable. - Discharge Instructions: Joint Pain, Arthritis, Nonspecific Chest Pain. - Medication Reconciliation Form, Thank You Letter, Antibiotic Education, Prescription Opioid Use form. - Follow up: Private Physician; When: As needed; Reason: Recheck today's complaints, Re-evaluation by your physician. - Problem is an ongoing problem. - Symptoms have improved. Signatures: Dispatcher [employer] EDDonna Sandoval RN RN bb Nieto, Roman, MD MD rn Stewart, Lisa, RN RN ls4 Corrections: (The following items were deleted from the chart) 12/18 01:20 01:02 12/19/2019 01:02 Discharged to Home. Impression: Chest pain, unspecified; Pain in ls4 unspecified joint; Diarrhea, unspecified. Condition is Stable. Forms are Medication Reconciliation Form, Thank You Letter, Antibiotic Education, Prescription Opioid Use. Follow up: Private Physician; When: As needed; Reason: Recheck today's complaints, Re-evaluation by your physician. Problem is an ongoing problem. Symptoms have improved. rn
--- NOTE | 2019-12-19 01:03 | ER ---
Nurse's Notes [facility] Name: Anisha Lindsay Age: 54 yrs Sex: Female : 1965 Arrival Date: 12/18/2019 Time: 21:54 Bed 26 Private MD: Diagnosis: Chest pain, unspecified;Pain in unspecified joint;Diarrhea, unspecified Presentation: 12/17 21:55 Chief complaint: EMS states: they were toned out for report of chest pain, back pain, bb leg pain the chest pain started about 90 mins ago. Coronavirus screen: Proceed with normal triage. Ebola Screen: No symptoms or risks identified at this time. Initial Sepsis Screen: Does the patient meet any 2 criteria? No. Patient's initial sepsis screen is negative. Does the patient have a suspected source of infection? No. Patient's initial sepsis screen is negative. Risk Assessment: Do you want to hurt yourself or someone else? Patient reports no desire to harm self or others. Onset of symptoms was December 18, 2019. 21:55 Method Of Arrival: EMS: [facility] bb 21:55 Acuity: CHEN 2 bb 21:59 Care prior to arrival: Medication(s) given: Nitroglycerin, 0.4 mg SL x 2. bb Triage Assessment: 22:48 General: Appears in no apparent distress. General: Behavior is calm, cooperative. Pain: ls4 Complains of pain in chest, right leg and left leg. Neuro: No deficits noted. Cardiovascular: Denies diaphoresis, fatigue, lightheadedness, nausea, palpitations, shortness of breath, syncope, vomiting. Respiratory: Respiratory effort is even, unlabored, Respiratory pattern is regular. Historical: - Allergies: 21:59 Adhesives; bb 21:59 Celebrex; bb 21:59 Demerol; bb - Home Meds: 21:59 albuterol sulfate 90 mcg/actuation Inhl HFAA 2 puffs as needed [Active]; Colestid Oral bb 1 packet as needed [Active]; FENTANYL PUMP [Active]; gabapentin 400 mg Oral cap 1 cap BID PRN [Active]; Lasix 40 mg Oral tab 1 tab as needed [Active]; levothyroxine 75 mcg tab 1 tab once daily [Active]; metoprolol tartrate 50 mg Oral tab 1 tab 2 times per day [Active]; prednisone 20 mg Oral tab 1 tab 2 times per day [Active]; Protonix 40 mg Oral TbEC 1 tab once daily [Active]; sertraline 100 mg Oral tab 1 tab nightly [Active]; trazodone 100 mg Oral tab 1 tab nightly [Active]; - PMHx: 21:59 Adenocarcinoma of the Lungs; Anxiety; CHF; COPD; CSF leak; Depression; Hypertension; bb Hypothyroidism; Myocardial infarction; osteo arthirtis; pericardial effusion; pericarditis; Renal Disease; Rheumatoid Arthritis; Stage 4 Lung Cencer- currently on Chemo; - Immunization history:: Adult Immunizations up to date. - Social history:: Smoking status: unknown. - Family history:: not pertinent. - Hospitalizations: : The patient was recently seen at [facility]. Screenin:48 Abuse screen: Denies threats or abuse. Denies injuries from another. Nutritional ls4 screening: No deficits noted. Tuberculosis screening: No symptoms or risk factors identified. Fall Risk None identified. Assessment: 22:00 General: Appears in no apparent distress. Behavior is anxious, fussy. Pain: Pain ls4 radiates to right leg and left leg Pain began years ago. Neuro: Level of Consciousness is awake, alert, obeys commands, Oriented to person, place, time, situation. Cardiovascular: Denies diaphoresis, fatigue, lightheadedness, shortness of breath. Respiratory: Airway is patent Respiratory effort is even, unlabored, Respiratory pattern is regular, Breath sounds are diminished bilaterally. GI: No deficits noted. No signs and/or symptoms were reported involving the gastrointestinal system. : No deficits noted. No signs and/or symptoms were reported regarding the genitourinary system. 12/18 00:16 Reassessment: Patient appears in no apparent distress at this time. Patient and/or ls4 family updated on plan of care and expected duration. Pain level reassessed. Patient is alert, oriented x 3, equal unlabored respirations, skin warm/dry/pink. Vital Signs: 12/17 21:55 Weight 104.33 kg (R); Height 5 ft. 3 in. (160.02 cm) (R); Pain 10/10; bb 22:00 BP 150 / 105; Pulse 83; Resp 14; Pulse Ox 99% ; Pain 7/10; ls4 22:02 BP 162 / 95 LA (auto/lg); Pulse 99; Resp 22; Temp 98.8(TE); Pulse Ox 98% ; Pain 10/10; jp3 22:48 BP 150 / 105; Pulse 85; Resp 17; Pulse Ox 99% on R/A; Pain 3/10; ls4 23:58 BP 133 / 90; Pulse 75; Resp 14; Pulse Ox 99% on R/A; Pain 5/10; ls4 12/18 00:16 BP 115 / 93; Pulse 88; Resp 14; Pulse Ox 99% on R/A; Pain 5/10; ls4 12/17 21:55 Body Mass Index 40.74 (104.33 kg, 160.02 cm) bb ED Course: 12/17 21:54 Patient arrived in ED. ds1 21:55 [facility] snw 21:55 Bean Conrad MD is Attending Physician. snw 21:57 Triage completed. bb 21:59 Arm band placed on Patient placed in an exam room, on a stretcher, on surveillance monitor, bb on pulse oximetry. 22:00 Neva Carroll, RN is Primary Nurse. ls4 22:05 Bed in low position. Call light in reach. Side rails up X 1. Side rails up X2. Warm jp3 blanket given. Pillow given. Verbal reassurance given. athletic monitor on. Pulse ox on. NIBP on. Assisted to bedside commode. 22:11 X-ray(s) taken. Patient maintains SpO2 saturation greater than 95% on room air. jp3 22:20 XRAY Chest (1 view) In Process Unspecified. EDMS 23:11 No provider procedures requiring assistance completed. Inserted saline lock: 20 gauge ls4 in left antecubital area, using aseptic technique. Blood collected. 23:23 Lab(s) recollected, by me, sent to lab. jp3 12/18 01:20 IV discontinued, intact, bleeding controlled, No redness/swelling at site. Pressure ls4 dressing applied. Administered Medications: 12/17 22:45 Drug: morphine 4 mg Route: IVP; Site: left antecubital; ls4 23:10 Follow up: Response: No adverse reaction; Marked relief of symptoms ls4 22:47 Drug: Zofran (Ondansetron) 4 mg Route: IVP; Site: left antecubital; ls4 23:09 Follow up: Response: No adverse reaction; Marked relief of symptoms ls4 Outcome: 12/18 01:02 Discharge ordered by . rn 01:19 Discharged to home ambulatory. ls4 01:19 Condition: stable 01:19 Discharge instructions given to patient, family, Instructed on discharge instructions, follow up and referral plans. medication usage, Demonstrated understanding of instructions, follow-up care, medications. 01:20 Patient left the ED. ls4 Signatures: Dispatcher [employer] EDMS Charisse Milton, [employer]DERER-C [employer] SOLDERER-Anat Ortega ds1 Donna White RN RN bb Bean Conrad MD MD rn Pisarski, Jacob jp3 Neva Carroll RN RN ls4
[2019-12-19 01:31] VITALS: TEMP 98.8
[2019-12-19 01:32] VITALS: O2SAT 99
[2019-12-19 01:35] VITALS: BP 115/93
--- NOTE | 2019-12-19 10:16 | RAD REPORT ---
EXAM DESCRIPTION: RAD - Chest Single View - 12/19/2019 12:26 am CLINICAL HISTORY: 4 years Female, CHEST PAIN COMPARISON: Chest radiograph dated 11/23/2019 FINDINGS/IMPRESSION: Unchanged position of right chest port. No focal lung consolidation. Low lung volumes. Small right pleural effusion. No pneumothorax. Cardiomediastinal silhouette is unchanged. Chronic fracture deformities of multiple right ribs. Electronically signed by: Rey Garcia DO 12/19/2019 12:16 AM CDT Due to temporary technical issues with the PACS/Fluency reporting system, reports are being signed by the in house radiologist as a courtesy to ensure prompt reporting. The interpreting radiologist is f ully responsible for the content of the report.
== END 2019-12-19 01:20 | disposition home or self-care (01) ==
LOC: ER 21:53
DX: R07.9 Chest pain, unspecified (principal); M25.50 Pain in unspecified joint; R19.7 Diarrhea, unspecified; C34.90 Malignant neoplasm of unspecified part of unspecified bronchus or lung; I11.0 Hypertensive heart disease with heart failure; I50.9 Heart failure, unspecified; I25.2 Old myocardial infarction; E03.9 Hypothyroidism, unspecified; F32.9 Major depressive disorder, single episode, unspecified; F41.9 Anxiety disorder, unspecified; M19.90 Unspecified osteoarthritis, unspecified site; M06.9 Rheumatoid arthritis, unspecified; Z79.52 Long term (current) use of systemic steroids; Z79.891 Long term (current) use of opiate analgesic; Z79.899 Other long term (current) drug therapy
CPT/HCPCS: 85025; 80048; 36415; 84484; 83880; 71045; J2405; 96374; 96375; 99285

== ENCOUNTER 2020-01-06 09:56 | Emergency (ER) | payer OTHER ==
--- OUTSIDE RECORDS SUMMARY | 2020-01-06 10:06 | XMS REPORT ---
:1965 Author Organization [facility] t Address [address] [place] [address] Dr. Cloud [address] [place] [id number] Care Team Providers Name Role Phone Unavailable Unavailable Unavailable Problems This patient has no known problems. Allergies, Adverse Reactions, Alerts This patient has no known allergies or adverse reactions. Medications This patient has no known medications. Results Test Description Test Time Test Comments Text Results Atomic Results Result Comments AKCRISSY, 2019-10-09 Reason for FINAL REPORT PATIENT NON-SPECIFIC, UP TO 1 08:26:00 exam:->Chronic Pain ID: [id number] A HOUR fluoroscopic unit was utilized for a procedure performed in the operating room. No interpretation was requested. Please refer to the operative report regarding findings. Please refer to PACS for patient radiation dose information. Signed: Jia Linn MDRchristoph Verified Date/Time: 10/09/2019 08:26:53 Reading Location: [facility] Radiology Reading Room
[2020-01-06] MEDS ORDERED: MORPHINE 4 MG/ML SYR ONE ×3 (10:25→12:57)
[2020-01-06] MEDS ORDERED: ONDANSETRON 4 MG/2 ML VIAL ONE (10:25)
[2020-01-06] MEDS ORDERED: NA CHLORIDE 0.9% 500 ML ONE (10:25)
[2020-01-06 11:12] LABS: Absolute Lymphocytes (CBC) 1.6 K/uL (0.7-4.9); Basophils % 0.5 % (0-1.3); Hematocrit 32.8 % (36.0-45.0); Lymphocytes % 27.1 % (15.3-44.8); MPV 8.3 fL (7.6-11.3)
[2020-01-06 11:27] LABS: ALT/SGPT 22 U/L (12-78); AST/SGOT 13 U/L (15-37); Albumin 3.8 g/dL (3.4-5.0); Alkaline Phosphatase 77 U/L (45-117); BUN Blood Urea Nitrogen 26 mg/dL (7-18); Bicarbonate 24 mmol/L (21-32); Bilirubin Direct < 0.1 mg/dL (0-0.2); Bilirubin Total 0.3 mg/dL (0.2-1.0); Glucose Level 134 mg/dL (74-106); Lipase 60 U/L (73-393); Protein, Total 7.8 g/dL (6.4-8.2); Sodium Level 141 mmol/L (136-145)
--- NOTE | 2020-01-06 12:02 | RAD REPORT ---
EXAM DESCRIPTION: CT - Abdomen Pelvis Wo Contrast - 01/06/2020 11:52 am CLINICAL HISTORY: Abdominal pain. diarrhea;Abd pain COMPARISON: Abdomen Pelvis Wo Contrast dated 03/17/2019 TECHNIQUE: CT imaging of the abdomen and pelvis was performed without contrast. Solid organ, bowel a nd vascular assessment is limited due to lack of IV and oral contrast. All CT scans are performed using dose optimization technique as appropriate and may include automated exposure control or mA/KV adjustment according to patient size. FINDINGS: The lower lung zayas are clear.Cholecystectomy clips. The liver, spleen, pancreas, adrenal glands and kidneys are within normal limits for a limited non-co ntrast examination. No bowel obstruction, free air, free fluid or abscess. Postsurgical changes along the anterior aspect of the abdominal wall with hernia mesh in place. Small fat containing left inguinal hernia. The appe ndix is normal. The osseous structures are within normal limits. IMPRESSION: No acute intra-abdominal or pelvic findings. A limited non-contrast examination was performed as detailed.
--- NOTE | 2020-01-06 12:29 | RAD REPORT ---
EXAM DESCRIPTION: RAD - Chest Single View - 01/06/2020 11:25 am CLINICAL HISTORY: lung cancer;Chest pain Chest pain. COMPARISON: Chest Single View dated 12/18/2019; Chest Single View dated 12/17/2019; Chest Single View dated 12/07/2019; Chest Pa And Lat (2 Views) dated 11/07/2019 FINDINGS: Portable technique limits examination quality. Small right pleural effusion is seen. Ill-defined opacity in the left apex is unchanged. The heart is mildly enlarged in size. Right-sided venous catheter has its tip in the SVC.
--- NOTE | 2020-01-06 12:39 | EDPHYS ---
Physician Documentation [facility] Name: Anisha Lindsay Age: 54 yrs Sex: Female : 1965 Arrival Date: 01/06/2020 Time: 09:57 Bed 6 Private MD: ED Physician Bean Conrad HPI: 01/05 10:24 This 54 yrs old Female presents to ER via Wheelchair with complaints of Chest rn Pain, Shortness Of Breath, Abdominal Pain, Back Pain. 10:24 The patient presents with abdominal pain in the upper abdomen, in the right upper rn quadrant. Onset: The symptoms/episode began/occurred yesterday. The symptoms radiate to Associated signs and symptoms: Pertinent positives: diarrhea, Pertinent negatives: nausea and vomiting, blood in stools, fever, shortness of breath. The symptoms are described as crampy, intermittent, sharp. Modifying factors: The symptoms are alleviated by nothing, the symptoms are aggravated by touching the area. Severity of pain: At its worst the pain was moderate in the emergency department the pain is unchanged. The patient has experienced similar episodes in the past. Reports "back again", for abd pain, same as before, upper and right side, but this time having non-bloody diarrhea, has been on abx for extended period of time. No fever or vomiting. Several diarrhea episodes since last night. Also reports chest pain, attributes it to her lung cancer, denies sob more than baseline. No fever.. Historical: - Allergies: 10:14 Adhesives; iw 10:14 Demerol; iw 10:14 Celebrex; iw - Family history:: not pertinent. - Hospitalizations: : No recent hospitalization is reported. ROS: 10:24 Constitutional: Negative for fever, chills, and weight loss, Eyes: Negative for injury, rn pain, redness, and discharge, Neck: Negative for injury, pain, and swelling, Cardiovascular: Negative for palpitations, and edema, Respiratory: Negative for wheezing Abdomen/GI: Negative for vomiting, and constipation, MS/Extremity: Negative for injury and deformity, Skin: Negative for injury, rash, and discoloration, Neuro: Negative for headache, numbness, tingling, and seizure. Exam: 10:23 ECG was reviewed by the Attending Physician. rn 10:24 Constitutional: This is a well developed, well nourished patient who is awake, alert, rn shaking both legs but can stop on command, states due to pain. Head/Face: Normocephalic, atraumatic. ENT: dry MM Cardiovascular: Regular rate and rhythm. No pulse deficits. Respiratory: Diminished at bases, no retractions Abdomen/GI: soft, mild right upper abd tenderness, no rebound MS/ Extremity: Pulses equal, no cyanosis. Neurovascular intact. Full, normal range of motion. Equal circumference. Neuro: Awake and alert, GCS 15, oriented to person, place, time, and situation. Cranial nerves II-XII grossly intact. Motor strength 5/5 in all extremities. Sensory grossly intact. Vital Signs: 10:12 BP 191 / 107; Pulse 96; Resp 18 S; Pulse Ox 100% on R/A; Pain 10/10; iw 10:34 BP 185 / 92; Pulse 89; Resp 16; Temp 98.0; iw 13:04 BP 155 / 81; Pulse 85; Resp 16 S; Pulse Ox 98% on R/A; iw MDM: 10:03 Patient medically screened. rn 12:36 Differential diagnosis: bowel obstruction, gastritis, gastroesophageal reflux disease, rn non-specific abd pain, pancreatitis, Peptic Ulcer Disease, Ureterolithiasis, chronic pain, enteritis, dehydration, cdiff, colitis. Data reviewed: vital signs, nurses notes, lab test result(s), EKG, radiologic studies, and as a result, I will discharge patient. Counseling: I had a detailed discussion with the patient and/or guardian regarding: the historical points, exam findings, and any diagnostic results supporting the discharge/admit diagnosis, lab results, radiology results, the need for outpatient follow up, to return to the emergency department if symptoms worsen or persist or if there are any questions or concerns that arise at home. Response to treatment: the patient's symptoms have mildly improved after treatment, and as a result, I will discharge patient. Special discussion: Based on the patient's history, exam, and Dx evaluation, there is no indication for emergent intervention or inpatient Tx. It is understood by the patient/guardian that if the Sx's persist or worsen they need to return immediately for re-evaluation. Based on the patient's Hx, exam, and Dx evaluation, there is no indication for emergent surgery or inpatient Tx. It is understood by the patient/guardian that if the Sx's persist or worsen they need to return immediately for re-evaluation. I discussed with the patient/guardian in detail that at this point there is no indication for admission to the hospital. It is understood, however, that if the symptoms persist or worsen the patient needs to return immediately for re-evaluation. ED course: NO acute findings on CT abd/pelvis or CXR, no acute findings in blood, neg cardiac w/u, findings of lung cancer and CKD unchanged. Will dc home with pcp f/u. . 12:36 ED course: Stool sent for culture and cdiff but actually here was well formed and rn non-bloody.. 01/05 10:11 Order name: Basic Metabolic Panel; Complete Time: 11:37 rn 01/05 10:11 Order name: CBC with Diff; Complete Time: 11:37 rn 01/05 10:11 Order name: Creatinine for Radiology; Complete Time: 11:37 rn 01/05 10:11 Order name: Hepatic Function; Complete Time: 11:37 rn 01/05 10:11 Order name: Lipase; Complete Time: 11:37 rn 01/05 10:11 Order name: Stool Culture rn 01/05 10:11 Order name: XRAY Chest (1 view); Complete Time: 12:36 rn 01/05 10:11 Order name: Rotavirus Antigen; Complete Time: 12:36 rn 01/05 10:42 Order name: CDIFF rn 01/05 11:38 Order name: CT Abd/Pelvis - Without Contrast; Complete Time: 12:36 rn 01/05 10:11 Order name: IV Saline Lock; Complete Time: 11:00 rn 01/05 10:11 Order name: Labs collected and sent; Complete Time: 11:00 rn 01/05 10:11 Order name: EKG; Complete Time: 10:12 rn 01/05 10:11 Order name: EKG - Nurse/Tech; Complete Time: 11:00 rn EC:23 Rate is 95 beats/min. Rhythm is regular. QRS [place] is Normal. SC interval is normal. QRS rn interval is normal. QT interval is normal. No Q waves. T waves are Normal. No ST changes noted. Clinical impression: Normal ECG. Interpreted by me. Reviewed by me. Administered Medications: 10:59 Drug: morphine 4 mg Route: IVP; Site: Port-a-cath; iw 11:00 Follow up: Response: No adverse reaction; Pain is unchanged, physician notified iw 10:59 Drug: Zofran (Ondansetron) 4 mg Route: IVP; Site: Port-a-cath; iw 16:26 Follow up: Response: No adverse reaction iw 10:59 Drug: NS 0.9% 500 ml Route: IV; Rate: bolus; Site: Port-a-cath; iw 11:27 Drug: morphine 4 mg Route: IVP; Site: Port-a-cath; aa5 11:35 Follow up: Response: No adverse reaction aa5 13:03 Drug: morphine 4 mg Route: IVP; Site: Port-a-cath; iw 13:30 Follow up: Response: No adverse reaction; Pain is decreased iw Disposition: 01/06/20 12:38 Discharged to Home. Impression: Chest pain, unspecified, Unspecified abdominal pain, Chronic pain syndrome. - Condition is Stable. - Discharge Instructions: Abdominal Pain, Adult, Nonspecific Chest Pain, Pain Without a Known Cause. - Medication Reconciliation Form, Thank You Letter, Antibiotic Education, Prescription Opioid Use form. - Follow up: Private Physician; When: As needed; Reason: Recheck today's complaints, Re-evaluation by your physician. - Problem is chronic. - Symptoms have improved. Signatures: Dispatcher [employer] Promise Mathews RN RN iw Nieto, Roman, MD MD rn Calderon, Audri, RN RN aa5 Corrections: (The following items were deleted from the chart) 11:52 10:12 Abdomen Pelvis W Con+CT.RAD.BRZ ordered. [facility] 12:39 12:38 01/06/2020 12:38 Discharged to Home. Impression: Chest pain, unspecified; rn Unspecified abdominal pain. Condition is Stable. Forms are Medication Reconciliation Form, Thank You Letter, Antibiotic Education, Prescription Opioid Use. Follow up: Private Physician; When: As needed; Reason: Recheck today's complaints, Re-evaluation by your physician. Problem is chronic. Symptoms have improved. rn 13:43 12:39 01/06/2020 12:38 Discharged to Home. Impression: Chest pain, unspecified; iw Unspecified abdominal pain; Chronic pain syndrome. Condition is Stable. Forms are Medication Reconciliation Form, Thank You Letter, Antibiotic Education, Prescription Opioid Use. Follow up: Private Physician; When: As needed; Reason: Recheck today's complaints, Re-evaluation by your physician. Problem is chronic. Symptoms have improved. rn
--- NOTE | 2020-01-06 12:39 | ER ---
Nurse's Notes [facility] Name: Anisha Lindsay Age: 54 yrs Sex: Female : 1965 Arrival Date: 01/06/2020 Time: 09:57 Bed 6 Private MD: Diagnosis: Chest pain, unspecified;Unspecified abdominal pain;Chronic pain syndrome Presentation: 01/05 10:12 Chief complaint: Patient states: hx of ashley lung cancer, has had right abd pain, iw diarrhea since last night, also started feeling tightness in her ribs and some SOB, started having her tremors from the pain, denies fever, has been on abx for her teeth. Coronavirus screen: Proceed with normal triage. Patient denies a cough. Patient reports shortness of breath or difficulty breathing. Patient denies measured and/or subjective temperature greater than 100.4F prior to today's visit. Patient denies travel on a cruise ship or to a country the [facility] currently lists as an affected area. Patient denies contact with known and/or suspected case of COVID-19. Ebola Screen: Patient negative for fever greater than or equal to 101.5 degrees Fahrenheit, and additional compatible Ebola Virus Disease symptoms Patient denies exposure to infectious person. Patient denies travel to an Ebola-affected area in the 21 days before illness onset. No symptoms or risks identified at this time. Initial Sepsis Screen: Does the patient meet any 2 criteria? No. Patient's initial sepsis screen is negative. Does the patient have a suspected source of infection? No. Patient's initial sepsis screen is negative. Risk Assessment: Do you want to hurt yourself or someone else? Patient reports no desire to harm self or others. Onset of symptoms was January 06, 2020. 10:12 Method Of Arrival: Wheelchair iw 10:12 Acuity: CHEN 3 iw Triage Assessment: 10:00 General: Appears in no apparent distress. iw 13:30 General: Behavior is calm. iw Historical: - Allergies: 10:14 Adhesives; iw 10:14 Demerol; iw 10:14 Celebrex; iw - Family history:: not pertinent. - Hospitalizations: : No recent hospitalization is reported. Screenin:30 Abuse screen: Denies threats or abuse. Denies injuries from another. Nutritional iw screening: No deficits noted. Tuberculosis screening: No symptoms or risk factors identified. Fall Risk None identified. Assessment: 10:30 General: Appears uncomfortable, Behavior is agitated, anxious, restless. Pain: iw Complains of pain in anterior aspect of right lateral abdomen and right upper quadrant Pain radiates to back Pain began. Neuro: Level of Consciousness is awake, alert, obeys commands. Cardiovascular: Reports chest pain, Capillary refill < 3 seconds in bilateral fingers Patient's skin is warm and dry. 13:00 Reassessment: Patient appears in no apparent distress at this time. Patient and/or iw family updated on plan of care and expected duration. Pain level reassessed. pt still shaking, requesting more pain medication before d/c home. Vital Signs: 10:12 BP 191 / 107; Pulse 96; Resp 18 S; Pulse Ox 100% on R/A; Pain 10/10; iw 10:34 BP 185 / 92; Pulse 89; Resp 16; Temp 98.0; iw 13:04 BP 155 / 81; Pulse 85; Resp 16 S; Pulse Ox 98% on R/A; iw ED Course: 09:57 Patient arrived in ED. as 10:03 Bean Conrad MD is Attending Physician. rn 10:14 Triage completed. iw 10:15 Promise Hartman, RN is Primary Nurse. iw 10:20 Patient has correct armband on for positive identification. night monitor on. Pulse iw ox on. NIBP on. 10:20 Arm band placed on. iw 11:26 XRAY Chest (1 view) In Process Unspecified. EDMS 11:50 Accessed Port-a-Cath. using accessed w/ # 20 Kahn needle, ,sterile technique, per hospital protocol. Clean \T\ dry. Dressing intact. Dressing loose. Site reddened. Good blood return. Flushes easily. 11:52 CT Abd/Pelvis - Without Contrast In Process Unspecified. EDMS 11:53 CT completed. Patient tolerated procedure well. Patient moved back from CT. bq 13:00 No provider procedures requiring assistance completed. Patient maintains SpO2 iw saturation greater than 95% on room air. Administered Medications: 10:59 Drug: morphine 4 mg Route: IVP; Site: Port-a-cath; iw 11:00 Follow up: Response: No adverse reaction; Pain is unchanged, physician notified iw 10:59 Drug: Zofran (Ondansetron) 4 mg Route: IVP; Site: Port-a-cath; iw 16:26 Follow up: Response: No adverse reaction iw 10:59 Drug: NS 0.9% 500 ml Route: IV; Rate: bolus; Site: Port-a-cath; iw 11:27 Drug: morphine 4 mg Route: IVP; Site: Port-a-cath; aa5 11:35 Follow up: Response: No adverse reaction aa5 13:03 Drug: morphine 4 mg Route: IVP; Site: Port-a-cath; iw 13:30 Follow up: Response: No adverse reaction; Pain is decreased iw Outcome: 12:38 Discharge ordered by . rn 13:42 Discharged to home via wheelchair. iw 13:42 Condition: good 13:42 Discharge instructions given to patient, Instructed on discharge instructions, follow up and referral plans. Demonstrated understanding of instructions, follow-up care. 13:43 Patient left the ED. iw Signatures: Dispatcher [employer] EDMS Elizabeth Quezada Amelia as Williams, Irene, RN RN iw Bean Conrad MD MD rn Calderon, Audri, RN RN aa5 Corrections: (The following items were deleted from the chart) 12:29 10:34 BP 185 / 92; iw iw
[2020-01-06 14:28] VITALS: TEMP 98
[2020-01-06 14:31] VITALS: BP 155/81; O2SAT 98
--- NOTE | 2020-01-07 10:52 | EKG ---
Test Date: 2020-01-06 Test Time: 10:11:47 Manager [employer] Strategy: VERONIKA MEASUREMENT RESULTS: Intervals: Rate: 95 NH: 154 QRSD: 80 QT: 326 QTc: 409 Tobias: P: 55 NH: 154 QRS: 71 T: 58 INTERPRETIVE STATEMENTS: Normal sinus rhythm Normal ECG Compared to ECG 12/17/2019 02:23:39 No significant changes Electronically Signed On 01-07-20 10:49:17 CDT by [employer]
== END 2020-01-06 13:43 | disposition home or self-care (01) ==
LOC: ER 09:56
DX: R10.9 Unspecified abdominal pain (principal); G89.4 Chronic pain syndrome; Z85.118 Personal history of other malignant neoplasm of bronchus and lung; Z88.5 Allergy status to narcotic agent; Z88.8 Allergy status to other drugs, medicaments and biological substances; Z91.048 Other nonmedicinal substance allergy status
CPT/HCPCS: 93005; 87045; 85025; 80048; 36415; 80076; 87046; 87324; 83690; 87449; 87425; 74176; 71045; 96375; 96374; 99285; J7040; J2405

== ENCOUNTER 2020-04-02 13:45 | Emergency (ER) | payer OTHER ==
--- OUTSIDE RECORDS SUMMARY | 2020-04-02 15:05 | XMS REPORT | Clinical Summary ---
:1965 Author Organization [facility] Address [address] [place] [address] Care Team Providers Name Role Phone MD Makenna Primary Care Provider Allergies Active Allergy Reactions Severity Noted Date Comments Adhesive Tape-Silicones 07/25/2013 Celecoxib Swelling 07/15/2016 Meperidine Hives 07/15/2016 Medications Medication Sig Dispensed Refills Start Date End Date Status levothyroxine Take 50 mcg by 0 A ctive (SYNTHROID, mouth every LEVOTHROID) 50 MCG morning. tablet ipratropium-albute Take 3 mL by 3 mL 0 04/27/2018 Active rol (DUO-NEB) nebulization 4 0.5-2.5 mg/mL (four) times a nebulizer day. traZODone Take 50 mg by 0 Active (DESYREL) 100 MG mouth nightly. tablet metoprolol Take 50 mg by 0 Activ e succinate XL mouth daily. (TOPROL-XL) 50 mg 24 hr tablet gabapentin Take 400 mg by 0 Acti ve (NEURONTIN) 800 mg mouth 2 (two) tablet times a day. temazepam Take 30 mg by 0 Active (RESTORIL) 30 mg mouth nightly as capsule needed for sleep. sertraline Take 100 mg by 0 Acti ve (ZOLOFT) 100 MG mouth nightly. tablet pantoprazole Take 40 mg by 0 Act vernon (PROTONIX) 40 MG mouth daily. EC tablet colchicine 0.6 mg Take 0.3 mg by 0 06/27/2019 Active tablet mouth. albuterol (PROAIR Inhale 2 puffs. 0 Active HFA) 90 mcg/actuation inhaler furosemide (LASIX) Take 40 mg by 0 Active 20 mg tablet mouth. potassium chloride Take 10 mEq by 0 Active (MICRO-K) 10 MEQ mouth. CR capsule LORAZepam (ATIVAN) Take 1 mg by 0 06/05/2019 Active 1 MG tablet mouth Every 6 hours while awake as needed (RT). colestipoL Take 1 g by 0 03/17/2019 Active (COLESTID) 1 gram mouth. tablet multivitamin with Take 1 tablet by 0 Active minerals tablet mouth daily. predniSONE DAILY 0 06/26/2019 Active (DELTASONE) 20 mg tablet amoxicillin/potass Take 850 mg by 0 Active ium clav mouth. (AUGMENTIN ORAL) SUMAtriptan Take 100 mg by 0 05/29/20 Dis continued (IMITREX) 50 MG mouth once as 19 tablet needed for migraine. May repeat in 2 hours if unresolved. Do not exceed 200 mg in 24 hours. tiZANidine Take 4 mg by 0 05/29/20 Discon tinued (ZANAFLEX) 4 MG mouth 4 (four) 19 tablet times a day as needed for muscle spasms. folic acid Take 1 tablet 30 tablet 11 05/23/2018 05/23/20 Expi red (FOLVITE) 800 MCG (800 mcg total) 19 tabletIndications: by mouth daily. Bilateral lung cancer (HCC) benzonatate Take 1 capsule 30 capsule 0 05/30/2019 06/09/20 E xpired (TESSALON) 100 MG (100 mg total) by 19 capsule mouth every 6 (six) hours as needed for cough for up to 10 days. colchicine 0.6 mg Take 1 tablet 30 tablet 0 06/01/2019 0 Discontinued tablet (0.6 mg total) by 19 mouth daily for 30 days. colchicine 0.6 mg Take 0.5 tablets 15 tablet 0 06/01/201906/06 tablet (0.3 mg total) by 19 mouth daily for 30 days. predniSONE Take 2 tablets 28 tablet 0 10/09/2019 10/23/19 Exp ired (DELTASONE) 20 mg (40 mg total) by 20 tabletIndications: mouth daily for Post-radiation 14 days. pneumonitis (HCC) Active Problems Problem Noted Date Pericardial effusion 05/29/2019 Ataxia 02/15/2019 Intractable headache 01/31/2019 Arthritis 06/14/2018 Coronary artery disease involving [place] coronary sobeida ry of [place] heart 06/14/2018 without angina pectoris Bilateral lung cancer 04/21/2018 Distal radius fracture, left 07/20/2016 Displaced fracture of distal end of left radius 2015 Encounters Date Type Specialty Care Team Description 03/14/2020 Office Visit Orthopedic Surgery Rg Baum Primary osteoarthritis J., PA-C of right knee ( Primary Dx) 03/14/2020 Travel 03/13/2020 Orders Only Orthopedic Surgery Rg Baum Acute p ain of right J., PA-C knee (Primary D x) 03/10/2020 Travel 03/06/2020 Telephone Oncology Jakob Carrera MD 03/06/2020 Orders Only Oncology Zackary, Bilateral lung cancer (HCC) (Primary Dx); TRAVIS Dickson Thrombocytopeni a (HCC) 03/06/2020 Travel 02/05/2020 Office Visit Oncology Jakob Carrera MD Bilateral lizette g cancer (HCC) (Primary Dx) 02/05/2020 Hospital Encounter Radiology Jakob Carrera MD Bilater al lung cancer (HCC) 02/04/2020 Travel 01/31/2020 Travel 01/31/2020 Orders Only Oncology Zackary, Bilateral lung cancer TRAVIS Dickson (HCC) (Primary Dx) 01/25/2020 Hospital Encounter Radiology Melvina Soria Pain in thoracic spine MD Rosina 01/25/2020 Hospital Encounter Radiology Melvina Soria Radicul opathy, lumbar MD Rosina region 01/25/2020 Hospital Encounter Radiology Melvina Soria Rheumat oid arthritis MD Rosina (HCC) 01/25/2020 Travel 01/23/2020 Transcribe Orders Access Melvina Soria Rheumato id arthritis ([facility]) (Primary Dx); MD Rosina Pain in thoraci c spine 01/21/2020 Transcribe Orders Access Melvina Soria Radiculo tiffany, lumbar MD Rosina region (Primary Dx) 01/21/2020 Transcribe Orders Access Melvina Soria MD 01/08/2020 Telemedicine Cardiothoracic Stephan Weir Lung nodule ( Primary Surgery MD Jose Dx) 01/07/2020 Travel 01/07/2020 Telephone Cardiothoracic Deloris Castellanos MA 01/03/2020 Hospital Encounter Radiology Stephan Weir MD 01/03/2020 Hospital Encounter Radiology Stephan Weir MD 01/03/2020 Hospital Encounter Radiology Stephan Weir MD 01/03/2020 Hospital Encounter Radiology Stephan Weir MD 01/03/2020 Hospital Encounter Radiology Stephan Weir MD 01/03/2020 Orders Only Cardiothoracic Provider, Deloris Chan MD 01/01/2020 Telephone Cardiothoracic Janice, Surgery Candy Gaytan, LIONEL 10/30/2019 Office Visit Cardiothoracic Stephan Weir Pneumonitis ( Primary Surgery MD Jose Dx) 10/30/2019 Hospital Encounter Radiology Stephan Weir Lung mass ; MD Jose History of lung cancer 10/29/2019 Telephone Cardiothoracic Chong, [facility] [place] 10/09/2019 Telephone Cardiothoracic Janice, Post-radiatio n pneumonitis (HCC) (Primary Dx); Surgery Candy Gaytan NP Lung mass; Personal histor y of other malignant neoplasm of bronchus and lung; History of lung cancer 10/04/2019 Anesthesia Event Cardiothoracic Maldonado, Surgery MD Job Apariciolayuridia Alena 10/04/2019 Surgery Cardiothoracic Stephan Weir FLEXIBLE BRON CHOSCOPY Surgery MD Jose WITH LAVAGE 10/04/2019 Hospital Encounter Cardiothoracic Stephan Weir Other n onspecific abnormal finding of lung field; Surgery MD Jose Personal histor y of other malignant neoplasm of bronchus and lung 10/04/2019 Hospital Encounter Radiology Stephan Weir Lung mass ; MD Jose History of lung cancer; Pre-op testing 10/03/2019 Telephone Cardiothoracic Jasmin, [place], [place] 10/02/2019 Office Visit Cardiothoracic Stephan Weir Lung mass (Pr imary Dx); Surgery MD Jose History of lung cancer; Pre-op testing 10/01/2019 Telephone Cardiothoracic Chong, [facility] [place] [place] 09/20/2019 Hospital Encounter Radiology Mac Malignant neoplasm of Osman Macdonald MD bronchus and lung (HCC) 09/17/2019 Transcribe Orders Access Mac, Malignant neoplasm of Osman Macdonald MD bronchus and lung (HCC) (Primary Dx) 09/07/2019 Transcribe Orders Access Mac, Nodule of left lung Osman Macdonald MD (Primary Dx) 07/20/2019 Telephone Oncology Jakob Carrera MD 07/16/2019 Office Visit Oncology Jakob Carrera MD Bilateral lizette g cancer (HCC) (Primary Dx) 07/16/2019 Hospital Encounter Radiology Jakob Carrera MD Bilater al lung cancer (HCC) 06/29/2019 Hospital Encounter Radiology Melvina Soria d egeneration of MD Rosina lumbosacral reg ion 06/08/2019 Telephone Oncology Jakob Carrera MD 05/29/2019 Hospital Encounter General Internal Jeramie Velasquez - Lluvia Munoz MD 05/31/2019 05/28/2019 Intake Access 05/28/2019 Telephone Oncology Elder Ratliff RN 04/16/2019 Office Visit Oncology Jakob Carrera MD Bilateral lizette g cancer (HCC) (Primary Dx) 04/16/2019 Orders Only Oncology Kt, Bilateral lung cancer TRAVIS Richard (HCC) (Primary Dx) 04/12/2019 Hospital Encounter Radiology Jakob Carrera MD Bilater al lung cancer (HCC) after 04/02/2019 Family History Medical History Relation Name Comments Cancer Brother colon cancer Cancer Mother throat/breast ca ncer Cancer Sister lung cancer Relation Name Status Comments Brother (Age 57) Mother (Age 76) Sister (Age 42) Social History Tobacco Use Types Packs/Day Years Used Date Former Smoker Cigarettes 14 4 Quit: 04/11/19 94 Smokeless Tobacco: Never Used Comments: Quit 20 years ago Alcohol Use Drinks/Week oz/Week Comments Yes Quit over a year ago Sex Assigned at Date Recorded Not on file Job Start Date Occupation Industry Not on file Not on file Not on file Travel History Travel Start Travel End No recent travel history available. COVID-19 Exposure Response Date Recorded In the last month, have you been in contact with No / Unsure 03/14/2020 1:22 PM CDT someone who was confirmed or suspected to have Coronavirus / COVID-19? Last Filed Vital Signs Vital Sign Reading Time Taken Comments Blood Pressure 113/76 10/30/2019 12:54 PM [employer] Pulse 91 10/30/2019 12:54 PM [employer] Temperature 35.9 C (96.6 F) 02/05/2020 1:05 PM CDT Respiratory Rate 17 10/30/2019 12:54 PM [employer] Oxygen Saturation 97% 10/30/2019 12:54 PM [employer] Inhaled Oxygen Concentration - - Weight 107 kg (235 lb) 02/05/2020 1:05 PM CDT Height 157.5 cm (5' 2") 10/30/2019 12:54 PM [employer] Body Mass Index 42.98 10/30/2019 12:54 PM [employer] Plan of Treatment Date Type Specialty Care Team Description 05/07/2020 Appointment Radiology Jakob Carrera MD [address] [address] 0 [phone] 05/07/2020 Lab Lab Jakob Carrera MD [address] [place] [address] 0 [phone] 05/07/2020 Office Visit Oncology Jakob Carrera MD [address] [address] 0 [phone] Health Maintenance Due Date Last Done Comments BREAST CANCER SCREENING 2013 COLONOSCOPY SCREENING 2013 SHINGLES VACCINES (#1) 2013 INFLUENZA VACCINE 04/05/2020 CERVICAL CANCER SCREENING 10/04/2022 10/04/2019, 10/04/2019 , 10/04/2019, Additional history exists Implants Implanted Type Area Solar 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 Device Shelf Model / Identifier Expiration Serial / Date Lot Port Injctbl Smart Port Ct W/ Dtchd Plyurthn Cath 8fr - [id number] Implantable N/A: [employer] 01/02/2021 [id number] / Implanted: 06/12/2018 at [facility] (Quantity not on file) Inf usion Ports N/A / or Accessories [id number] Pump Infsn Synchromed Ii W/ Fltr Sut Loop Prgrmbl Rsvr 20ml - [id number] Neurosurgical N/A: [employer] 10/19/2019 [id number] / Implanted: Qty: 1 on 06/09/2018 by Travon Grace MD at [facility] Implants N/A NEUROMODULATION / [id number] Description:Hospital-owned Pain Mgmt Pain Mgmt Implantable Devices Implantable Devices Ports Cath Ports Passer Intrathcl Cath Rp Tip Obtrtr 38cm - [id number] Surgical N/A: [employer] [facility] [id number] / Implanted: Qty: 1 on 06/09/2018 by Travon Grace MD at [facility] Implantable Shunts N/A NEUROLOGICAL 019 / or Shunt Extenders N [id number] Kit Selnt Fibrin Humn [facility] Surgy 5ml Evicel - [id number] Morales rgical Implants; N/A: ETHIC[employer] US-EH [id number] / Implanted: Qty: 1 on 04/21/2018 by Stephan Weir MD at [facility] Expanders; N/A 019 / Extenders; Surgical [id number] Wires Closure Wnd Tiss Rpr Sys - [id number] Surgical Implants; N/A: [employer] XC 201 01 / Implanted: Qty: 1 on 06/09/2018 by Travon Grace MD at [facility] Expanders; N/A INC 022 / Extenders; Surgical [id number] Wires Procedures Procedure Name Priority Date/Time Associated Diagnosis Comme nts XR KNEE 4+ VW RIGHT Routine 03/14/2020 1:57 Acute pain of rig ht Results for this PM CDT knee procedure are i n the results section. PET CT SKULL BASE TO Routine 02/05/2020 11:28 Bilateral lung R esults for this MID THIGH AM CDT cancer (HCC) procedure are i n the results section. POC GLUCOSE Routine 02/05/2020 10:08 Results for this AM CDT procedure are i n the results section. MRI LUMBAR SPINE WO Routine 01/25/2020 10:46 Radiculopathy, Re sults for this CONTRAST AM CDT lumbar region procedure are in the results section. MRI THORACIC SPINE WO Routine 01/25/2020 10:44 Pain in thoraci c Results for this CONTRAST AM CDT spine procedure are i n the results section. MRI CERVICAL SPINE WO Routine 01/25/2020 9:22 Rheumatoid arth ritis Results for this CONTRAST AM CDT (HCC) procedure are i n the results section. XR CHEST 2 VW Routine 12/19/2019 XR CHEST EXTERNAL Routine 12/18/2019 10:10 Result s for this STUDY PM CDT procedure are i n the results section. CT CHEST EXTERNAL Routine 12/17/2019 3:51 Result s for this STUDY AM CDT procedure are i n the results section. XR CHEST EXTERNAL Routine 12/17/2019 2:27 Result s for this STUDY AM CDT procedure are i n the results section. CT CHEST EXTERNAL Routine 12/17/[address] HEAD EXTERNAL STUDY Routine 12/07/2019 3:46 R esults for this PM CDT procedure are i n the results section. XR CHEST EXTERNAL Routine 12/07/2019 12:14 Result s for this STUDY AM CDT procedure are i n the results section. CARDIAC PET MYOCARDIAL Routine 12/07/[address] HEAD EXTERNAL STUDY Routine 12/07/2019 XR CHEST 2 VW Routine 12/06/2019 CT CHEST WO CONTRAST Routine 10/30/2019 11:00 Lung mass Results for this AM [employer] History of lung procedure ar e in cancer the results section. XR CHEST 1 VW PORTABLE STAT 10/04/2019 12:05 R esults for this PM [employer] procedure are i n the results section. RESPIRATORY PATHOGEN Timed 10/04/2019 10:58 Res ults for this PANEL AM [employer] procedure are i n the results section. GRAM STAIN Timed 10/04/2019 10:58 Results for this AM [employer] procedure are i n the results section. AFB STAIN Timed 10/04/2019 10:58 Results for this AM [employer] procedure are i n the results section. FUNGUS SMEAR Timed 10/04/2019 10:58 Results for this AM [employer] procedure are i n the results section. RESPIRATORY CULTURE Timed 10/04/2019 10:58 Other nonspecific Results for this AM [employer] abnormal finding of procedur e are in lung field the results Personal history of section. other malignant neoplasm of bronchus and lung NOCARDIA CULTURE Timed 10/04/2019 10:58 Other nonspecific Re sults for this AM [employer] abnormal finding of procedur e are in lung field the results Personal history of section. other malignant neoplasm of bronchus and lung LEGIONELLA CULTURE Timed 10/04/2019 10:58 Other nonspecific Results for this AM [employer] abnormal finding of procedur e are in lung field the results Personal history of section. other malignant neoplasm of bronchus and lung FUNGUS CULTURE Timed 10/04/2019 10:58 Other nonspecific Resu lts for this AM [employer] abnormal finding of procedur e are in lung field the results Personal history of section. other malignant neoplasm of bronchus and lung CYTOLOGY Routine 10/04/2019 10:57 Results for this (NON-GYNECOLOGICAL) AM [employer] procedur e are in REQUEST the results section. CA AN ELECTIVE Routine 10/04/2019 10:16 Results f or this ENDOTRACHEAL AIRWAY AM [employer] procedur e are in the results section. CYTOLOGY Routine 10/04/2019 10:15 Results for this (NON-GYNECOLOGICAL) AM [employer] procedur e are in REQUEST the results section. CYTOLOGY Routine 10/04/2019 10:15 Results for this (NON-GYNECOLOGICAL) AM [employer] procedur e are in REQUEST the results section. AFB CULTURE Timed 10/04/2019 9:58 Other nonspecific Result s for this AM [employer] abnormal finding of procedur e are in lung field the results Personal history of section. other malignant neoplasm of bronchus and lung CT CHEST WO CONTRAST Routine 10/04/2019 8:31 Lung mass Results for this AM [employer] History of lung procedure ar e in cancer the results Pre-op testing section. PARTIAL THROMBOPLASTIN Routine 10/02/2019 11:56 Lung mas s Results for this TIME (PTT) AM [employer] History of lung procedure ar e in cancer the results Pre-op testing section. PROTHROMBIN TIME WITH Routine 10/02/2019 11:56 Lung mass Results for this INR AM [employer] History of lung procedure ar e in cancer the results Pre-op testing section. COMPREHENSIVE Routine 10/02/2019 11:56 Lung mass Results for this METABOLIC PANEL AM [employer] History of lung procedure are in cancer the results Pre-op testing section. CBC WITH PLATELET AND Routine 10/02/2019 11:56 Lung mass Results for this DIFFERENTIAL AM [employer] History of lung procedure ar e in cancer the results Pre-op testing section. CT CHEST WO CONTRAST Routine 09/20/2019 12:19 Malignant neopla sm Results for this PM [employer] of bronchus and lung procedu re are in (HCC) the results section. PET CT SKULL BASE TO Routine 07/16/2019 10:38 Bilateral lung R esults for this MID THIGH AM [employer] cancer (HCC) procedure are i n the results section. POC GLUCOSE Routine 07/16/2019 9:23 Results for this AM [employer] procedure are i n the results section. MRI LUMBAR SPINE WO Routine 06/29/2019 10:30 Facet degeneratio n Results for this CONTRAST AM CDT of lumbosacral procedure are in region the results section. HC COMPLETE BLD COUNT Routine 05/31/2019 5:30 Re sults for this W/AUTO DIFF AM CDT procedure are i n the results section. ESTIMATED GFR Routine 05/31/2019 4:00 Results fo r this AM CDT procedure are i n the results section. BASIC METABOLIC PANEL Routine 05/31/2019 4:00 Re sults for this AM CDT procedure are i n the results section. URINALYSIS, AUTOMATED Routine 05/30/2019 6:30 Re sults for this WITH MICROSCOPY PM CDT procedure ar e in the results section. TROPONIN STAT 05/30/2019 5:40 Results for this PM CDT procedure are i n the results section. ECG 12-LEAD Routine 05/30/2019 4:47 Results for this PM CDT procedure are i n the results section. HC COMPLETE BLD COUNT Routine 05/30/2019 5:40 Re sults for this W/AUTO DIFF AM CDT procedure are i n the results section. ESTIMATED GFR Routine 05/30/2019 4:00 Results fo r this AM CDT procedure are i n the results section. BASIC METABOLIC PANEL Routine 05/30/2019 4:00 Re sults for this AM CDT procedure are i n the results section. NM LUNG VENTILATION Routine 05/29/2019 4:16 Resu lts for this PERFUSION PM CDT procedure are i n the results section. XR CHEST 1 VW PORTABLE STAT 05/29/2019 3:40 R esults for this PM CDT procedure are i n the results section. TTE COMPLETE, WO Routine 05/29/2019 10:58 Results for this CONTRAST, W DOPPLER AM CDT procedur e are in ([id number]) the results section. ESTIMATED GFR Routine 05/29/2019 1:45 Results fo r this AM CDT procedure are i n the results section. TROPONIN STAT 05/29/2019 1:45 Results for this AM CDT procedure are i n the results section. B NATRIURETIC PEPTIDE Routine 05/29/2019 1:45 Re sults for this AM CDT procedure are i n the results section. COMPREHENSIVE Routine 05/29/2019 1:45 Results fo r this METABOLIC PANEL AM CDT procedure ar e in the results section. PARTIAL THROMBOPLASTIN Routine 05/29/2019 1:45 R esults for this TIME (PTT) AM CDT procedure are i n the results section. PROTHROMBIN TIME WITH Routine 05/29/2019 1:45 Re sults for this INR AM CDT procedure are i n the results section. HC COMPLETE BLD COUNT Routine 05/29/2019 1:45 Re sults for this W/AUTO DIFF AM CDT procedure are i n the results section. ECG 12-LEAD STAT 05/29/2019 1:15 Results for this AM CDT procedure are i n the results section. PET CT SKULL BASE TO Routine 04/12/2019 12:42 Bilateral lung R esults for this MID THIGH PM CDT cancer (HCC) procedure are i n the results section. POC GLUCOSE Routine 04/12/2019 11:21 Results for this AM CDT procedure are i n the results section. after 04/02/2019 Results XR Knee 4+ Vw Right (03/14/2020 1:57 PM CDT) Specimen Narrative Performed At This result has an attachment that is no t available. OA with 100% loss of joint space, periarticular spurring, cysts, and [facility] subchondral sclerosisright knee medial Performing Organization Address City/State/Zipcode Phone Number [facility] [address] [place] [address] PET/CT Skull Base To Mid Thigh (02/05/2020 11:28 AM CDT)Only the most recent of3 resultswithin the time period is included. Specimen Narrative Performed At PROCEDURE: PET CT SKULL BASE TO MID TH IGH [facility] INDICATION: Restaging lung cancer. S ubsequent treatment strategy. TECHNIQUE: Blood glucose measured at the time of inj ection was 108 mg/dL. The patient was then injected with 10.9 mCi of 18F-FDG, IV. Approximately one hour later, PET images were acquir ed from the skull base to the mid thighs. Corresponding, l ow dose, non-contrast CT scanning was performed as part of the attenuation correction process. Automated dose exp osure control was utilized. COMPARISON: PET CT scan 07/16/2019, ou tside chest CT 12/17/2019. FINDINGS: Head and neck: No suspicious brain uptake. Physiol ogic uptake in the sinuses, orbits, nasopharynx, and oropharynx. Uptake by the larynx is normal. No suspicious neck lymph node uptake. Chest: No abnormal mediastinal, hilar, or axillary l ymph node uptake. Linear volume loss in the left upper lobe demonstrat es mild, diffuse uptake, with an SUV of 2.7. The appearance is sugges tive of postradiation change. No focal uptake has developed. Status post right upper lobectomy. Prio r granulomatous disease in the right lower lobe. Abdomen: Physiologic uptake in the stomach, spleen, pancreas, liver, and adrenal glands. No abnormal retroperitoneal or m esenteric lymph node uptake. Bowel uptake is physiolog ic. Pelvis: Physiologic bowel uptake. No abnormal pelv ic lymph node uptake. Review of the osseous structures demonstrates no suspi cious uptake. 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 Mild uptake is present with in an associated right knee effusion. IMPRESSION: 1. No evidence for recurrent or metastatic lung canc er. Probable post radiation changes in the left upper lobe. 2. Probable degenerative uptake about the right knee . If there is concern for septic arthritis, consider a rthrocentesis. [facility]-[id number] Procedure Note [facility], Radiology Results Incoming - 02/05/2020 1:06 PM CDT PROCEDURE: PET CT SKULL BASE TO MID THIGH INDICATION: Restaging lung cancer. Sub sequent treatment strategy. TECHNIQUE: Blood glucose measured at th e time of injection was 108 mg/dL. The patient was then injected with 10.9 mCi of 18F-FDG, IV. Approximately one hour later, PET images were acquired from the skull base to the mid thighs. Corresponding, low dose, non-contrast CT scanning was performed as part of the attenuation correction process. Automated dose exposure control was utilized. COMPARISON: PET CT scan 07/16/2019, out side chest CT 12/17/2019. FINDINGS: Head and neck: No suspicious brain upta ke. Physiologic uptake in the sinuses, orbits, nasopharynx, and oropharynx. Uptake by the larynx is normal. No suspicious neck lymph node uptake. Chest: No abnormal mediastinal, hilar, or axillary lymph node uptake. Linear volume loss in the left upper lobe demonstrates mild, diffuse uptake, with an SUV of 2.7. The appearance is suggestive of postradiation change. No focal uptake has developed. Status post right upper lobe ctomy. Prior granulomatous disease in the right lower lobe. Abdomen: Physiologic uptake in the stom ach, spleen, pancreas, liver, and adrenal glands. No abnormal retroperitoneal or mesenteric lymph node uptake. Bowel uptake is physiologic. Pelvis: Physiologic bowel uptake. No a bnormal pelvic lymph node uptake. Review of the osseous structures demonst rates no suspicious uptake. 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 Mild uptake is present within an associated right knee effusion. IMPRESSION: 1. No evidence for recurrent or metasta tic lung cancer. Probable post radiation changes in the left upper lobe. 2. Probable degenerative uptake about t he right knee. If there is concern for septic arthritis, consider arthrocentesis. [id number] Performing Organization Address City[facility]State[facility] Phone Number [facility] [id number] [place] [address] POC glucose (02/05/2020 10:08 AM CDT)Only the most recent of3 resultswithin the time period is included. Pathologist Sig nature POC glucose 108 (H) 65 - 99 mg/dL [facility] Comment: HOSPITAL Asbestos Shingle Inspector Name: Riccardo Velazco Device ID: [id number] Chartable: No Action Needed Specimen Blood Performing Organization Address City/[facility]/Zipcode Phone Number [facility] DEPARTMENT OF PATHOLOGY AND [address] [place], [place] [address] GENOMIC MEDICINE [facility] [address] [place] [id number] MRI Lumbar Spine Wo Contrast (01/25/2020 10:46 AM CDT)Only the most recent of2 resultswithin the time period is included. Specimen Narrative Performed At [facility] EXAM: MRI LUMBAR SPINE WO CONTRAST COMPARISON: June 29, 2019. CLINICAL HISTORY: M54.16 Radiculopathy lumbar reg ion, Lumbar radiculopathy TECHNIQUE: Multiplanar multisequence examination was p erformed without contrast. FINDINGS: Sagittal images and straight minimal degenerative ante rolisthesis at L4-5. There is mild degenerative disc desiccation thro ughout the lumbar spine. There are no significant changes in the alignment. L5-S1: There are mild facet joint degenerative changes and ligamentum flavum thickening. There is minimal cent ral bulge. L4-5: There is annular bulging, ligament flavum thicke tim, and facet hypertrophic and sclerotic changes. There is no signif icant central canal stenosis. L3-4: There are mild facet joint degenerative changes without significant stenosis. L2-3: There are mild facet joint degener ative changes without stenosis. L1-2: There are no significant abnormali ties. Overall, there are no interval changes. IMPRESSION: Stable mild spondylotic changes as discussed above wit hout significant focal protrusion or spinal stenosis. Subtle degenerative anterolisthesis at L 4-5 without spondylolysis. [id number] Procedure Note Interface, Radiology Results Incoming - 01/25/2020 12:35 PM CDT EXAM: MRI LUMBAR SPINE WO CONTRAST COMPARISON: June 29, 2019. CLINICAL HISTORY: M54.16 Radiculopathy lumbar region, Lumbar radiculopathy TECHNIQUE: Multiplanar multisequence exa mination was performed without contrast. FINDINGS: Sagittal images and straight minimal deg enerative anterolisthesis at L4-5. There is mild degenerative disc desiccation throughout the lumbar spine. There are no significant changes in the alignment. L5-S1: There are mild facet joint degene rative changes and ligamentum flavum thickening. There is minimal central bulge. L4-5: There is annular bulging, ligament flavum thickening, and facet hypertrophic and sclerotic changes. There is no significant central canal stenosis. L3-4: There are mild facet joint degener ative changes without significant stenosis. L2-3: There are mild facet joint degener ative changes without stenosis. L1-2: There are no significant abnormali ties. Overall, there are no interval changes. IMPRESSION: Stable mild spondylotic changes as discu ssed above without significant focal protrusion or spinal stenosis. Subtle degenerative anterolisthesis at L 4-5 without spondylolysis. [facility]-[id number] Performing Organization Address City/State/Zipcode Phone Number [facility] [address] [place] [address] MRI Thoracic Spine Wo Contrast (01/25/2020 10:44 AM CDT) Specimen Narrative Performed At EXAMINATION: MRI THORACIC SPINE WO CONTR AST HM [facility] CLINICAL HISTORY: M54.6 Pain in thoracic spine, M54.6 COMPARISON: CT chest 10/30/2019 TECHNIQUE: Multiplanar multisequence noncontrast enhan dao examination was performed of the thoracic spine. FINDINGS: Moderate thoracic kyphosis. Bulky paravertebral osteop hyte formation of the mid to lower thoracic levels. Heterogeneous bone m arrow without suspicious osseous lesion. Fatty replacement of the emanuel ne marrow within the T2 and T3 vertebrae. No cord signal abnormality identified. Patent spinal canal at all thoracic levels with no mor e than minimal posterior disc bulge or protrusion identified. For exa mple, there is a tiny central posterior disc protrusion at T6-T7 and mi nimal posterior disc bulge at T11-T12. Moderate to severe left neural foraminal narrowing on the left at T8-T9 secondary to facet hypertrophy. Remaining neural karyn jensen appear patent. Scattered nerve root diverticula/perineural root sleev e cysts. For example, bilaterally at T6-T7 and on the right at T8-T9. IMPRESSION: Mild to moderate degenerative changes of the thoracic spine without significant spinal canal narrowing. Moderate to severe left neural foraminal narrowing at T8-T9. [id number] Procedure Note Interface, Radiology Results Incoming - 01/25/2020 11:06 AM CDT EXAMINATION: MRI THORACIC SPINE WO CONTRAST CLINICAL HISTORY: M54.6 Pain in thoracic spine, M54.6 COMPARISON: CT chest 10/30/2019 TECHNIQUE: Multiplanar multisequence non contrast enhanced examination was performed of the thoracic spine. FINDINGS: Moderate thoracic kyphosis. Bulky parave rtebral osteophyte formation of the mid to lower thoracic levels. Heterogeneous bone marrow without suspicious osseous lesion. Fatty replacement of the bone marrow within the T2 and T3 vertebrae. No cord signal abnormality identified. Patent spinal canal at all thoracic leve ls with no more than minimal posterior disc bulge or protrusion identified. For example, there is a tiny central posterior disc protrusion at T6-T7 and minimal posterior disc bulge at T11-T12. Moderate to severe left neural foraminal narrowing on the left at T8-T9 secondary to facet hypertrophy. Remaining neural foramina appear patent. Scattered nerve root diverticula/perineural root sleeve cysts. For example, bilaterally at T6-T7 and on the right at T8-T9. IMPRESSION: Mild to moderate degenerative changes of the thoracic spine without significant spinal canal narrowing. Moderate to severe left neural foraminal narrowing at T8-T9. [facility]-[id number] Performing Organization Address City/State/Zipcode Phone Number [facility] [address] [place] [address] MRI Cervical Spine Wo Contrast (01/25/2020 9:22 AM CDT) Specimen Narrative Performed At This result has an attachment that is no t available. EXAMINATION: MRI CERVICAL SPINE WO CONTRAST [facility] CLINICAL HISTORY: M06.9 Rheumatoid arthritis unspeci fied, M06.9 COMPARISON: MRI cervical spine dated February 17, 2019 TECHNIQUE: Multiplanar multisequence non contrast enhanced examination was performed of the cervical spine. FINDINGS: Vertebral body heights are maintained. N o focal marrow lesions or acure edema identified. Cervical alignment is preserved with nor mal lordosis. There is no significant spondylolisthesis. The cervicomedullary junction is unremar kable. No cord signal abnormality identified. The partially imaged posterior fossa is grossly intact . No gross masses are present in the visualized preverte bral soft tissues. Axial images through the disc spaces demonstrate the f ollowing: C1-C2: There is narrowing of the atlanto axial interval with spurring. There is no significant stenosis. C2-C3: No significant posterior disc dis ease, spinal canal or neural foraminal stenosis. C3-C4: There is anterior osteophytosis w ithout significant posterior spondylosis. There is no stenosis. C4-C5: There is disc disease with 1 mm a nterolisthesis of C4 and disc bulge with minimal effacement of thecal sac without canal narrowing. Uncovertebral arthrosis and facet disease results in moderate l eft and mild right foraminal narrowing. Findings are stable. The left foramen is less stenot ic than suggested on prior exam as noted on today's thin section high-resolution imaging. C5-C6: There is loss of disc height with posterior spondylosis with mild effacement of the ventral thecal sac with mild canal narrowing. Uncovertebral arthrosis and facet disease results in moderate lef t and mild to moderate right foraminal narrowing. Findings are grossly stable. C6-C7: There is posterior spondylosis wi th mild effacement of ventral thecal sac. Uncovertebral arthrosis and facet disease is present without stenosis. C7-T1: No significant posterior disc dis ease, spinal canal or neural foraminal stenosis. IMPRESSION: There are degenerative changes most prom inent at C4-5 and C5-6 which appears stable to the prior MRI to slightly improved given differences in technique. There is no progressive stenosis identified. No acute osseous abnormalities appreciated. [facility]-[id number] Procedure Note Hm Interface, Radiology Results - 01/25/2020 10:38 AM CDT EXAMINATION: MRI CERVICAL SPINE WO CONTRAST CLINICAL HISTORY: M06.9 Rheumatoid arthr itis unspecified, M06.9 COMPARISON: MRI cervical spine dated 2018 TECHNIQUE: Multiplanar multisequence non contrast enhanced examination was performed of the cervical spine. FINDINGS: Vertebral body heights are maintained. N o focal marrow lesions or acure edema identified. Cervical alignment is preserved with nor mal lordosis. There is no significant spondylolisthesis. The cervicomedullary junction is unremar kable. No cord signal abnormality identified. The partially imaged posterior fossa is grossly intact. No gross masses are present in the visua lized prevertebral soft tissues. Axial images through the disc spaces dem onstrate the following: C1-C2: There is narrowing of the atlanto axial interval with spurring. There is no significant stenosis. C2-C3: No significant posterior disc dis ease, spinal canal or neural foraminal stenosis. C3-C4: There is anterior osteophytosis w ithout significant posterior spondylosis. There is no stenosis. C4-C5: There is disc disease with 1 mm a nterolisthesis of C4 and disc bulge with minimal effacement of thecal sac without canal narrowing. Uncovertebral arthrosis and facet disease results in moderate left and mild right foraminal narrowing. Findings are stable. The left foramen is less stenot ic than suggested on prior exam as noted on today's thin section high-resolution imaging. C5-C6: There is loss of disc height with posterior spondylosis with mild effacement of the ventral thecal sac with mild canal narrowing. Uncovertebral arthrosis and facet disease results in moderate left and mild to moderate right foraminal narrowi ng. Findings are grossly stable. C6-C7: There is posterior spondylosis wi th mild effacement of ventral thecal sac. Uncovertebral arthrosis and facet disease is present without stenosis. C7-T1: No significant posterior disc dis ease, spinal canal or neural foraminal stenosis. IMPRESSION: There are degenerative changes most prom inent at C4-5 and C5-6 which appears stable to the prior MRI to slightly improved given differences in technique. There is no progressive stenosis identified. No acute osseous abnormalities appreciated. [facility]-[id number] Performing Organization Address City/[facility]/Zipcode Phone Number [facility] [address] [place] [address] XR Chest 2 Vw (12/19/2019)Only the most recent of2 resultswithin the time period is included. Narrative Performed At This result has an attachment that is no t available. XR Chest External Study (12/18/2019 10:10 PM CDT)Only the most recent of3 resultswithin the time period is included. Specimen Narrative Performed At This exam was not acquired at a [facility] facility and has not been [facility] interpreted by a Latter-Day Provider. T he exam was imported into our imaging system. Performing Organization Address City/[facility]/Zipcode Phone Number [facility] [address] [place] [address] CT Chest External Study (12/17/2019 3:51 AM CDT)Only the most recent of2 resultswithin the time period is included. Specimen Narrative Performed At This exam was not acquired at a [facility] facility and has not been [facility] interpreted by a Latter-Day Provider. T he exam was imported into our imaging system. Performing Organization Address City/State/Zipcode Phone Number [facility] [address] [place] [address] CT Head External Study (12/07/2019 3:46 PM CDT)Only the most recent of2 results within the time period is included. Specimen Narrative Performed At This exam was not acquired at a [facility] facility and has not been [facility] interpreted by a Latter-Day Provider. T he exam was imported into our imaging system. Performing Organization Address City/State/Zipcode Phone Number [facility] [address] [place] [address] CV Cardiac PET Myocardial Perfusion Imaging (12/07/2019) Narrative Performed At This result has an attachment that is no t available. CT Chest Wo Contrast (10/30/2019 11:00 AM SCHOLARSHIP COUNSELOR)Only the most recent of3 results within the time period is included. Specimen Narrative Performed At EXAMINATION: [facility] CT CHEST WO CONTRAST CLINICAL HISTORY: R91.8 Other nonspecific abnormal finding of lung field , Z85.118 Personal history of other malignant neoplasm of bronchus and bozena ng, lung mass personal history lung cancer TECHNIQUE: Multiple axial images of the chest were obtained witho ut intravenous contrast. The lack of intravenous contrast reduces the sensitivity of detecting solid organ disease and evaluating vasculatu re. Sagittal and coronal computerized reformatted images were also obtained. All CT images were acquired using lo w-dose technique with automated exposure control. COMPARISON: October 04, 2019 FINDINGS: 1.Interval decrease in a left upper lobe opacity when compared to October 04, 2019. There is residual consolidation in t he left upper lobe with air bronchograms and some degree of volume loss w ith the opacity measuring approximately 6.8 x 3.2 x 2.6 cm. The findings likely relate to improving infection or p neumonitis. Groundglass component to the opacity has improved rela tive to prior. Continued follow-up may be of benefit prior PET/CT of July 16, 2019 suggest the possibility of underlying ne oplasm. 2.Heart size is normal. Trace pericardial effusion. No mediastinal lymphadenopathy. A port is present over the right ches t with tip the catheter stent into the distal SVC. 3.Postsurgical changes relating to right upper lobectomy. 4.There are stable, scattered small centrilobular nodu les some of which are subpleural in distribution involving lungs bilater ally measuring up to 2 mm. 5.A pleural or pericardial effusion is n ot identified. 6.Limited images to the upper abdomen do not demonstra te a suspicious abnormality.. IMPRESSION: 1.Residual opacity in the left upper lobe in a broncho vascular distribution has decreased in size relative to October 04, 2019. The findings likely relate to improving infection or pneum onitis. There is mild thickening of the adjacent pleura. In addition, there are small scattered centrilobular nodu les measuring up to 2 mm scattered throughout the lungs bilaterally and in the dependent portions of the lung bases unchanged significantly fro m July 26, 2018.. [id number] Procedure Note Hm Interface, Radiology Results Incoming - 10/30/2019 1:42 PM SCHOLARSHIP COUNSELOR EXAMINATION: CT CHEST WO CONTRAST CLINICAL HISTORY: R91.8 Other nonspecific abnormal finding of lung field, Z85.118 Personal history of other malignant neoplasm of bronchus and lung, lung mass personal history lung cancer TECHNIQUE: Multiple axial images of the chest were obtained without intravenous contrast. The lack of intravenous contrast reduces the sensitivity of detecting solid organ disease and evaluating vasculature. Sagittal and coronal computerized reformatted images were also obtained. All CT images were acqu ired using low-dose technique with automated exposure control. COMPARISON: October 04, 2019 FINDINGS: 1.Interval decrease in a left upper lobe opacity when compared to October 04, 2019. There is residual consolidation in the left upper lobe with air bronchograms and some degree of volume loss with the opacity measuring approximately 6.8 x 3.2 x 2.6 cm. The findings likely relate to improving infection or pneumonitis. Groundglass component to the opacity has improved relative to prior. Continued follow-up may be of benefit prior PET/CT of July 16, 2019 suggest the possibility of underlying ne oplasm. 2.Heart size is normal. Trace pericardia l effusion. No mediastinal lymphadenopathy. A port is present over the right chest with tip the catheter stent into the distal SVC. 3.Postsurgical changes relating to right upper lobectomy. 4.There are stable, scattered small cent rilobular nodules some of which are subpleural in distribution involving lungs bilaterally measuring up to 2 mm. 5.A pleural or pericardial effusion is n ot identified. 6.Limited images to the upper abdomen do not demonstrate a suspicious abnormality.. IMPRESSION: 1.Residual opacity in the left upper lob e in a bronchovascular distribution has decreased in size relative to October 04, 2019. The findings likely relate to improving infection or pneumonitis. There is mild thickening of the adjacent pleura. In addition, there are small scattered cent rilobular nodules measuring up to 2 mm scattered throughout the lungs bilaterally and in the dependent portions of the lung bases unchanged significantly from July 26, 2018.. [id number] Performing Organization Address [facility] Phone Number [facility] [address] [place] [address] XR Chest 1 Vw Portable (10/04/2019 12:05 PM SCHOLARSHIP COUNSELOR)Only the most recent of2 results within the time period is included. Specimen Narrative Performed At EXAMINATION: XR CHEST 1 VW PORTABLE [facility] INDICATION: s p bronchoscopy with biopsy eval for PTX COMPARISON: Most recent prior IMPRESSION: Focal consolidation in the left upper lobe appears sim ilar when compared to prior chest CT. No evidence of a pneumothorax. Stable appearance of the heart and media stinum. Right chest port with catheter tip overl michael the SVC. Old right rib fracture deformities. [id number] Procedure Note Interface, Radiology Results Incoming - 10/04/2019 12:25 PM SCHOLARSHIP COUNSELOR EXAMINATION: XR CHEST 1 VW PORTABLE INDICATION: s p bronchoscopy with biopsy eval for PTX COMPARISON: Most recent prior IMPRESSION: Focal consolidation in the left upper lo be appears similar when compared to prior chest CT. No evidence of a pneumothorax. Stable appearance of the heart and media stinum. Right chest port with catheter tip overl michael the SVC. Old right rib fracture deformities. [id number] Performing Organization Address City/[facility]/Zipcode Phone Number [facility] [address] [place] [address] Respiratory culture (10/04/2019 10:58 AM SCHOLARSHIP COUNSELOR) Respiratory culture Normal oral mic isolated. MANDI Ward DENOMINATIONAL isolate Comment: HOSPITAL Specimen Information Specimen Source: Bronchial alveolar lavage Specimen Site: Lung: KOJO BAL Specimen Bronchial alveolar lavage - Lung Performing Organization Address City/[facility]/Zipcode Phone Number [facility] DEPARTMENT OF PATHOLOGY AND [address] [place] [address] [phone] [address] Fungus smear (10/04/2019 10:58 AM SCHOLARSHIP COUNSELOR) Pathologist Sig nature Fungus smear No fungi observed. CODY FORDE Comment: HOSPITAL Specimen Information Specimen Source: Bronchial alveolar lavage Specimen Site: Lung: KOJO BAL Specimen Bronchial alveolar lavage Performing Organization Address [facility] Phone Number [facility] DEPARTMENT OF PATHOLOGY AND [address] [place] [address] [place] [address] Respiratory pathogen panel (10/04/2019 10:58 AM SCHOLARSHIP COUNSELOR) Respiratory Negative for all pathogens tested: [facility] pathogen panel Negative for Adenovirus DENOMINATIONAL Negative for Coronavirus HKU1 [facility] Negative for Coronavirus NL63 Negative [...] real-time PCR assay detects the presence of nucle ic acids (RNA or DNA) for the respiratory pathogens liste d. A result of "Not-detected" does not exclude the possib ility of the presence of one or more pathogens at concentrat ions less than the detectable limits of the assay. Comment: Specimen Information Specimen Source: Bronchial alveolar lavage Specimen Site: Lung: KOJO BAL Specimen Bronchial alveolar lavage Performing Organization Address [facility] Phone Number [facility] DEPARTMENT OF PATHOLOGY AND [address] [place] [address] [phone] [address] Nocardia culture (10/04/2019 10:58 AM SCHOLARSHIP COUNSELOR) Nocardia culture No Nocardia isolated after 7 days. JEROME FORDE isolate Comment: HOSPITAL Specimen Information Specimen Source: Bronchial alveolar lavage Specimen Site: Lung: KOJO BAL Specimen Bronchial alveolar lavage - Lung Performing Organization Address [facility]/Zipcode Phone Number [facility] DEPARTMENT OF PATHOLOGY AND [address] [place] [address] [phone] [address] Legionella culture (10/04/2019 10:58 AM SCHOLARSHIP COUNSELOR) Legionella culture No Legionella isolated. [facility] isolate No Legionella isolated. HOSPITAL Comment: Specimen Information Specimen Source: Bronchial alveolar lavage Specimen Site: Lung: KOJO BAL Specimen Bronchial alveolar lavage - Lung Performing Organization Address [facility] Phone Number [facility] DEPARTMENT OF PATHOLOGY AND [address] [place] [phone] [place] [phone] Gram stain (10/04/2019 10:58 AM SCHOLARSHIP COUNSELOR) Gram stain isolate Rare WBC's [facility] No organisms seen HOSPITAL Comment: Specimen Information Specimen Source: Bronchial alveolar lavage Specimen Site: Lung: KOJO BAL Specimen Bronchial alveolar lavage Performing Organization Address [facility] Phone Number [facility] DEPARTMENT OF PATHOLOGY AND [address] [place] [phone] [place] [address] AFB stain (10/04/2019 10:58 AM SCHOLARSHIP COUNSELOR) Pathologist Sig nature AFB stain No acid fast bacilli (AFB) seen. [facility] Comment: HOSPITAL Specimen Information Specimen Source: Bronchial alveolar lavage Specimen Site: Lung: KOJO BAL Specimen Bronchial alveolar lavage Performing Organization Address [facility] Phone Number [facility] DEPARTMENT OF PATHOLOGY AND [address] [place] [phone] [place] [address] Fungus culture (10/04/2019 10:58 AM SCHOLARSHIP COUNSELOR) Fungus culture No growth after 4 weeks of incubation. [facility] isolate Comment: HOSPITAL Specimen Information Specimen Source: Bronchial alveolar lavage Specimen Site: Lung: KOJO BAL Specimen Bronchial alveolar lavage - Lung Performing Organization Address City/[facility]/Zipcode Phone Number [facility] DEPARTMENT OF PATHOLOGY AND [address] [place] [phone] [place] [address] Cytology (non-gynecological) request (10/04/2019 10:57 AM SCHOLARSHIP COUNSELOR)Only the most recent of3 resultswithin the time period is included. [facility] DEPARTMENT OF PATHOLOGY AND GENOMIC MEDICINE Cytology See link below [facility] DEPARTMENT OF (non-gynecological) for PDF Lab PATHOLOGY AND report Report GENOMIC MEDICINE Result status This is Final [facility] DEPARTMENT OF Report for PATHOLOGY AND [id number] GENOMIC MEDICINE Specimen Performing Organization Address City/[facility] Phone Number [facility] DEPARTMENT OF PATHOLOGY AND [address] [place] [address] 0 GENOMIC MEDICINE Airway (10/04/2019 10:16 AM SCHOLARSHIP COUNSELOR) Narrative Performed At Michaelle Maldonado MD 10:53 AM Airway Performed by: Michaelle Maldonado MD Authorized by: Michaelle Maldonado MD Location: OR Urgency: Elective Difficult Airway: No Anesthesiologist: Michaelle Maldonado MD Resident/PEACE OFFICER/AA: Rufino Jennings CRNA Other Anesthesia Staff: Preston Macario Performed by: other anesthesia staff Preoxygenated with 100% O2: Yes C-spine Precautions Maintained Throughou t: No Mask Ventilation: Not attempted Final Airway Type: Endotracheal airway Final Endotracheal Airway: ETT Cuffed: Yes Technique Used: Video laryngoscopy Insertion Site: Oral Laryngoscope Blade/Videolaryngoscope Mich de Size: 4 (Glidescope 4) ETT Size (mm): 8.5 Cuff at minimum occlusion pressure: Yes Measured from: Teeth ETT to Teeth (cm): 23 Placement Verified by: CO2 detection, di rect visualization and equal breath sounds Laryngoscopic view: Grade I - full vie w of glottis Rapid Sequence Induction (RSI): Yes Number of Attempts at Approach: 1 Atraumatic; no injury to lips, teeth, or oropharynx. AFB culture (10/04/2019 9:58 AM SCHOLARSHIP COUNSELOR) AFB culture No growth after 6 weeks of incubation. JEROME FORDE isolate Comment: HOSPITAL Specimen Information Specimen Source: Bronchial alveolar lavage Specimen Site: Lung: KOJO BAL Specimen Bronchial alveolar lavage - Lung Performing Organization Address City/[facility]/Zipcode Phone Number [facility] DEPARTMENT OF PATHOLOGY AND [address] [phone] 0 GENOMIC MEDICINE [address] [place] [address] Partial thromboplastin time, activated (10/02/2019 11:56 AM SCHOLARSHIP COUNSELOR)Only the most recent of2 resultswithin the time period is included. Pathologist Sig nature aPTT 31 24 - 33 sec [facility] Comment: This test has not been validated for monitoring unfrac tionated heparin therapy. aPTT-based therapeutic ranges for unfractiona evelin heparin therapy have not been established. For general guideli krys on Heparin monitoring, refer to the [facility] Directory of Services. Specimen Blood Narrative Performed At Performed at: [facility] [address] [place] [id number] 143 Coin Machine Mechanic: Felipe Schmid MD, Phone: [phone] Performing Organization Address [facility] [place] Phone Number [facility] Prothrombin time with INR (10/02/2019 11:56 AM SCHOLARSHIP COUNSELOR)Only the most recent of2 resultswithin the time period is included. INR 1.0 0.8 - 1.2 [facility] Comment: Reference interval is for non-anticoagulated patients. Suggested INR therapeutic range for Vitamin K antagonist therapy: Standard Dose (moderate intensity therapeutic range): 2.0 - 3.0 Higher intensity therapeutic range 2.5 - 3.5 Prothrombin time 10.5 9.1 - 12.0 sec [facility] Specimen Blood Narrative Performed At Performed at: 01 [facility] [address] [place], [place] [address] 143 Coin Machine Mechanic: Felipe Schmid MD, Phone: [phone] Performing Organization Address [facility] [place] Phone Number [facility] CBC with platelet and differential (10/02/2019 11:56 AM SCHOLARSHIP COUNSELOR)Only the most recent of4 resultswithin the time period is included. Pathologist Sig nature WBC 6.5 3.4 - 10.8 x10E3/uL [facility] RBC 3.42 (L) 3.77 - 5.28 [facility] x10E6/uL HGB 10.5 (L) 11.1 - 15.9 g/dL [facility] HCT 31.7 (L) 34.0 - 46.6 % [facility] MCV 93 79 - 97 fL [facility] MCH 30.7 26.6 - 33.0 pg [facility] MCHC 33.1 31.5 - 35.7 g/dL [facility] RDW 12.9 11.7 - 15.4 % [facility] Platelet count 262 150 - 450 x10E3/uL [facility] Neutrophils 64 Not Estab. % [facility] Lymphocytes 25 Not Estab. % [facility] Monocytes 9 Not Estab. % [facility] Eosinophils 2 Not Estab. % [facility] Basophils 0 Not Estab. % [facility] Neutrophils, absolute 4.1 1.4 - 7.0 x10E3/uL [facility] Lymphocytes, absolute 1.6 0.7 - 3.1 x10E3/uL [facility] Monocytes, absolute 0.6 0.1 - 0.9 x10E3/uL [facility] Eosinophils, absolute 0.2 0.0 - 0.4 x10E3/uL [facility] Basophils, absolute 0.0 0.0 - 0.2 x10E3/uL [facility] Immature granulocytes 0 Not Estab. % [facility] Immature grans (abs) 0.0 0.0 - 0.1 x10E3/uL [facility] Specimen Blood Narrative Performed At Performed at: 01 - [facility] [id number] 143 Coin Machine Mechanic: Felipe Schmid MD, Phone: [phone] Performing Organization Address City/State/Zipcode Phone Number [facility] Comprehensive metabolic panel (10/02/2019 11:56 AM SCHOLARSHIP COUNSELOR)Only the most recent of2 resultswithin the time period is included. Glucose 93 65 - 99 mg/dL [facility] BUN 31 (H) 6 - 24 mg/dL [facility] Creatinine 2.20 (H) 0.57 - 1.00 [facility] mg/dL EGFR Non-Afr. 24 (L) >59 [facility] [place] mL/min/1.73 EGFR 28 (L) >59 [facility] [place] mL/min/1.73 BUN/creatinine ratio 14 9 - 23 [facility] Sodium 141 134 - 144 [facility] mmol/L Potassium 4.5 3.5 - 5.2 [facility] mmol/L Chloride 104 96 - 106 [facility] mmol/L CO2 19 (L) 20 - 29 mmol/L [facility] Calcium 9.4 8.7 - 10.2 [facility] mg/dL Protein 7.2 6.0 - 8.5 g/dL [facility] Albumin, S 4.3Comment: 3.8 - 4.9 g/dL [facility] Please note reference interval change Globulin, total 2.9 1.5 - 4.5 g/dL [facility] Albumin/globulin 1.5 1.2 - 2.2 [facility] ratio Total bilirubin <0.2 0.0 - 1.2 [facility] mg/dL Alkaline phosphatase 95 39 - 117 IU/L [facility] AST 15 0 - 40 IU/L [facility] ALT 13 0 - 32 IU/L [facility] Specimen Blood Narrative Performed At Performed at: 01 - [facility] [address] [place], [place] [address] 143 Coin Machine Mechanic: Felipe Schmid MD, Phone: [phone] Performing Organization Address City/[facility] Phone Number [facility] Estimated GFR (05/31/2019 4:00 AM CDT)Only the most recent of3 resultswithin the time period is included. Pathologist [facility] Estimated GFR 17 (A) mL/min/1.73 [facility] Comment: HOSPITAL Catergory Units Interpretation G1 >=90 Normal or high G2 60-89 Mildly decreased G3a 45-59 Mildly to moderately decreas ed G3b 30-44 Moderately to severely decre ased G4 15-29 Severely decreased G5 <15 Kidney failure The eGFR was calculated using the Chronic Kidney Disea se Epidemiology Collaboration (CKD-EPI) equation. Interpretation is based on recommendations of the National Kidney Foundation-Kidney Disease Outcomes [place] lity Initiative (NKF-KDOQI) published in 2014. Specimen Plasma specimen Performing Organization Address City/[facility] Phone Number [facility] DEPARTMENT OF PATHOLOGY AND [address] [place], [place] [address] GENOMIC MEDICINE [facility] [address] [place] [address] Basic metabolic panel (05/31/2019 4:00 AM CDT)Only the most recent of2 results within the time period is included. Pathologist Sig nature Sodium 140 135 - 148 mEq/L [facility] Potassium 3.8 3.5 - 5.0 mEq/L [facility] Chloride 102 98 - 112 mEq/L [facility] CO2 21 (L) 24 - 31 mEq/L [facility] Anion gap 17@ANIO (H) 7 - 15 mEq/L [facility] BUN 40 (H) 6 - 20 mg/dL [facility] Creatinine 2.90 (H) 0.50 - 0.90 mg/dL [facility] Glucose 127 (H) 65 - 99 mg/dL [facility] Calcium 9.1 8.3 - 10.2 mg/dL [facility] Specimen Plasma specimen Performing Organization Address City/[facility] Phone Number [facility] DEPARTMENT OF PATHOLOGY AND [address] [place] [address] [phone] [address] Urinalysis, automated with microscopy (05/30/2019 6:30 PM CDT) Pathologist Sig nature Color, UA Straw [facility] Appearance, UA Clear [facility] Specific gravity, UA 1.011 1.001 - 1.035 [facility] pH, UA 5.0 5.0 - 8.5 [facility] Protein, UA Negative Negative [facility] Glucose, UA Negative Negative [facility] Ketones, UA Negative Negative [facility] Bilirubin, UA Negative Negative [facility] Blood, UA Negative Negative [facility] Nitrite, UA Negative Negative [facility] Urobilinogen, UA <2.0 <2.0 [facility] Leukocyte esterase, Negative Negative [facility] Epithelial cells, UA 1 /HPF [facility] WBC, UA 1 0 - 4 /HPF [facility] RBC, UA <1 0 - 5 /HPF [facility] Bacteria, UA Few None seen [facility] Yeast, UA None seen [facility] Yeast with None seen [facility] pseudohyphae, HOSPITAL Specimen Urine Performing Organization Address [facility] Phone Number [facility] DEPARTMENT OF PATHOLOGY AND [address] [place] [address] [phone] [address] Troponin (05/30/2019 5:40 PM CDT)Only the most recent of2 resultswithin the time period is included. Troponin <0.006 0.000 - 0.040 [facility] Comment: ng/mL HOSPITAL [facility] changed methodology eff ective: 01/09/2019 at 10:00 am The new method has a 99th percentile cutoff of 0.040 n g/mL Specimen Plasma specimen Performing Organization Address City/[facility] Phone Number [facility] DEPARTMENT OF PATHOLOGY AND [address], [place] [address] GENOMIC MEDICINE [facility] [address] [place] [address] ECG 12 lead (05/30/2019 4:47 PM CDT)Only the most recent of2 resultswithin the time period is included. Pathologist Sig nature Ventricular rate 81 [facility]USE Atrial rate 81 [facility] MUSE CA interval 164 [facility] QRSD interval 92 [facility] QT interval 378 [facility] QTC interval 439 [facility] MUSE P axis 1 48 [facility] QRS axis 1 59 [facility] T wave axis 50 [facility] EKG impression Normal sinus [facility] MUSE rhythm-Incomplete right bundle branch block-Borderline ECG-In automated comparison with ECG of 29-MAY-2019 01:15,-No significant change was found- Specimen Narrative Performed At This result has an attachment that is no t available. Performing Organization Address City/[facility] Phone Number [facility] MUSE [address] [place] [address] [place] Lung Ventilation Perfusion (05/29/2019 4:16 PM CDT) Specimen Narrative Performed At CLINICAL HISTORY: SOB [facility] TECHNIQUE: The patient breathed 15-20 mCi of xenon-133 gas throug h a closed ventilation system while dynamic imaging of the lungs was performed in the posterior and anterior projections. The patient wa s then injected with 5 mCi of [id number] intrave nously, followed by imaging of the lungs in anterior, posterio r, and oblique projections. FINDINGS: Mildly reduced ventilation and perfusion to the right upper lobe, ventilation worse than perfusion. No other significant perfusion abnormalities. IMPRESSION: Low Probability of pulmonary embolism. [facility]-[id number] Procedure Note Interface, Radiology Results Incoming - 05/29/2019 4:25 PM CDT CLINICAL HISTORY: SOB TECHNIQUE: The patient breathed 15-20 mCi of xenon- 133 gas through a closed ventilation system while dynamic imaging of the lungs was performed in the posterior and anterior projections. The patient was then injected with 5 mCi of [id number] intravenously, followed by imaging of the lungs in ante rior, posterior, and oblique projections. FINDINGS: Mildly reduced ventilation and perfusion to the right upper lobe, ventilation worse than perfusion. No other significant perfusion abnormalities. IMPRESSION: Low Probability of pulmonary embolism. [facility]-[id number] Performing Organization Address City/State/Zipcode Phone Number [facility] [address] [place] [address] Echocardiogram complete w contrast and 3D if needed (05/29/2019 10:58 AM CDT) Specimen Narrative Performed At [facility] Echo cardiography Report [address] [facility], [place] [address] Pat.Name: ERNESTO SUERO.ID: [id number] .Date: 05/29/2019 Refer.MD: JERAMIE VELASQUEZ MD Exam Time: 10:06:00 AM Study Type:Ro utine Echo Height: 62in Weight: 230lb BSA: 2.03 m2 Ag e: 1965,53Y Sex: FEMALE BP: 138/90 HR: 75 bpm Sonogr phr: Jessica Case, SEPIDEH Pat. Stat.:Inpatient Room: A7 Study Status:Final Echo Event ID:[id number] Order ID: [id number] Reason for Study:CP, Chest Pressure, Mariann st Tightness; Pericardial Effusion Procedures: 2D Echo, Colorflow Doppler, Intravenous Lumason Contrast Race: Other SUMMARY: LV EF is normal.Estimated EF is 60-64%. RV systolic function is normal. Diastolic dysfunction Grade I (Mild): Im paired relaxation with normal LV filling pressures. Small to moderate posterolateral and tra ce anterior pericardial effusion. No evidence of cardiac chamber collapse or transmitral or transtricuspid respirophasic changes. FINDINGS: LV: LV size is normal. Concentr ic left ventricular remodeling. LV EF is normal. Overall wall motion is normal. Estimated EF is 60-64%. RV: RV size is enlarged. RV sys tolic function is normal. LA: LA volume is mildly enlarge d. RA: RA size is normal. AO: Aortic root diameter is nor mal. SOULEYMANE: Small to moderate posterolat eral and trace anterior pericardial effusion. N o evidence of cardiac chamber collapse. AV: No structural AV abnormalit ies noted. MV: No structural MV abnormalit ies noted. PV: No structural PV abnormalit ies noted. TV: No structural TV abnormalit ies noted. Mild tricuspid regurgitation [place]: LV respiratory variation is not present. RV respiratory variation is not presen t. Diastolic dysfunction Grade I (Mild): Impaired relaxa tion with normal LV filling pressures. Other: Estimated PA systolic pressu re is appx 43-48 mmHg, assuming a mean RAP of 5-10 mmHg . MEASUREMENTS: 2D Parasternal Long Pima Ao An 1.9 cm LVPWd 1 cm Ao Rtd 2.9 cm Index 1.4 cm/m2 LA Ds 4.5 cm IVSd 1.3 cm RWT 0.4 LVIDd 4.4 cm Index 2.2 cm/m2 LV Mass 172.9 g (87-129 ) LVIDs 2.5 cm LVM In dex 85.2 g/m LV%fs 42.4 % LA Sng Plane LA Area 23.7 cm (8.8-23.4) LA Vol 80.4 ml Index 39.6 ml/m2 LA LngAx 5.7 cm RA Sng Plane RA Vol 38.9 ml Index 19.2 ml/m2 RA LngAx 5.3 cm RA Area 15.4 cm (8.3-19 .5) LVOT Stroke Vol LVOT 1.9 cm DOPPLER LVOT Stroke Vol LVOT TVI 23.5 cm LVOT CI 2.4 l/m/m LVOT SV 66.7 ml HR 73 bpm LVOT CO 4.9 l/min LVOT LVOT Area 2.8 cm SVi 32.8 ml/m Signed 05/29/2019 01:26 PM Aurelia Grider MD Procedure Note Interface, Radiology Results In - 2018 1:26 PM CDT Echocardiography Report [address] [place] [address] Pat.Name: ERNESTO SUERO Pat.I D: [id number] St.Date: 05/29/2019 Refer .MD: JERAMIE VELASQUEZ MD Exam Time: 10:06:00 AM Study Type:Routine Echo Height: 62in Weigh t: 230lb BSA: 2.03 m2 Age: 10 1965,53Y Sex: FEMALE BP: 138/90 HR: 75 bpm Sonog rphr: SEPIDEH Muniz Pat. Stat.:Inpatient Room: [facility] Study Status:Final Echo Event ID:[id number] Order ID: [id number] Reason for Study:CP, Chest Pressure, Mariann st Tightness; Pericardial Effusion Procedures: 2D Echo, Colorflow Doppler, Intravenous Lumason Contrast Race: Other SUMMARY: LV EF is normal.Estimated EF is 60-64%. RV systolic function is normal. Diastolic dysfunction Grade I (Mild): Im paired relaxation with normal LV filling pressures. Small to moderate posterolateral and tra ce anterior pericardial effusion. No evidence of cardiac chamber collapse or transmitral or transtricuspid respirophasic changes. FINDINGS: LV: LV size is normal. Concentric left ventricular remodeling. LV EF is normal. Overall wall motion is normal. Estimated EF is 60-64%. RV: RV size is enlarged. RV systol ic function is normal. LA: LA volume is mildly enlarged. RA: RA size is normal. AO: Aortic root diameter is normal . SOULEYMANE: Small to moderate posterolater al and trace anterior pericardial effusion. No evid ence of cardiac chamber collapse. AV: No structural AV abnormalities noted. MV: No structural MV abnormalities noted. PV: No structural PV abnormalities noted. TV: No structural TV abnormalities noted. Mild tricuspid regurgitation [place]: LV respiratory variation is no t present. RV respiratory variation is not present. Rand stolic dysfunction Grade I (Mild): Impaired relaxation w ith normal LV filling pressures. Other: Estimated PA systolic pressure is appx 43-48 mmHg, assuming a mean RAP of 5-10 mmHg. MEASUREMENTS: 2D Parasternal Long Pima Ao An 1.9 cm LVPW d 1 cm Ao Rtd 2.9 cm Inde x 1.4 cm/m2 LA Ds 4.5 cm IVSd 1.3 cm RWT 0.4 LVIDd 4.4 cm Inde x 2.2 cm/m2 LV Mass 172.9 g (87-129) LVIDs 2.5 cm LVM Index 85.2 g/m LV%fs 42.4 % LA Sng Plane LA Area 23.7 cm (8.8-23.4) L A Vol 80.4 ml Index 39.6 ml/m2 LA LngAx 5.7 cm RA Sng Plane RA Vol 38.9 ml Inde x 19.2 ml/m2 RA LngAx 5.3 cm RA Area 15.4 cm (8.3-19.5) LVOT Stroke Vol LVOT 1.9 cm DOPPLER LVOT Stroke Vol LVOT TVI 23.5 cm LVOT CI 2.4 l/m/m LVOT SV 66.7 ml HR 73 bpm LVOT CO 4.9 l/min LVOT LVOT Area 2.8 cm SVi 32.8 ml/m Signed 05/29/2019 01:26 PM Aurelia Grider MD Performing Organization Address City/State/Zipcode Phone Number [facility] [address] [place] [address] B natriuretic peptide (05/29/2019 1:45 AM CDT) Pathologist Sig nature BNP 28 0 - 100 pg/mL [facility] Specimen Blood Performing Organization Address City/State/Zipcode Phone Number [facility] DEPARTMENT OF PATHOLOGY AND [address], [place] [address] GENOMIC MEDICINE [facility] [address] [place] [address] after 04/02/2019 Insurance Payer Benefit Plan / Subscriber ID Effective Dates Phone Addre ss Type Group MEDICARE MEDICARE PART A xxxxxxxxxxx 2013-Present [place], [place] Medicare AND B Advance Directives For more information, please contact: [phone] Type Date Recorded 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 Explanati on Advance Directives, 06/26/2018 9:38 AM Living Will and Medical Power of Meter Reading Clerk Advance Directives, 02/22/2019 8:49 AM ADV 12-28-2018 Living Will and Medical Power of Meter Reading Clerk Advance Directives, 02/22/2019 8:49 AM POA 0 12-28-2018 Living Will and Medical Power of Meter Reading Clerk Advance Directives, 02/27/2019 9:03 AM ADV 0 12-28-2018 Living Will and Medical Power of Meter Reading Clerk Advance Directives, 02/27/2019 9:03 AM POA 0 12-28-2018 Living Will and Medical Power of Meter Reading Clerk Code Status Date Activated Date Inactivated Comments DNR 02/15/2019 7:20 PM 02/23/2019 9:20 PM Does patient have decision-making capacity? Yes Is the patient's imminent? No Code Status decision reached by: Patient by means of Writte n Directive DNR 02/07/2019 5:50 PM 02/15/2019 7:13 PM Does patient have decision-making capacity? Yes Is the patient's imminent? No Code Status decision reached by: Patient by means of [place] ward Directive
--- OUTSIDE RECORDS SUMMARY | 2020-04-02 15:05 | XMS REPORT | Clinical Summary ---
:[address] [facility] Address [address] [place] [address] Care Team Providers Name Role Phone Unavailable Primary Care Provider Unavailable Allergies Active Allergy Reactions Severity Noted Date Comments Adhesive Rash Low 10/08/2019 Celecoxib Swelling 08/16/2012 Meperidine Hives 02/21/2012 Medications Medication Sig Dispensed Refills Start Date End Date Status lisinopril-hydroCHLOROt Take 1 tablet by 0 Active hiazide mouth daily. (PRINZIDE,ZESTORETIC) 20-12.5 mg per tablet TOBRAMYCIN OPHT Apply to eye(s). 0 Active FUROSEMIDE ORAL Take 50 mg by 0 Active mouth 2 (two) times daily. levothyroxine Take 75 mcg by 0 A ctive (SYNTHROID, LEVOTHROID) mouth Every 75 MCG tablet morning on an empty stomach. butalb/acetaminophen/ca Take by mouth as 0 Active ffeine (FIORICET ORAL) needed. temazepam (RESTORIL) 30 Take 30 mg by 0 Active mg capsule mouth every night as needed for Sleep. sumatriptan succinate Take by mouth as 0 Active (IMITREX ORAL) needed. gabapentin (NEURONTIN) Take 300 mg by 0 Active 300 MG capsule mouth 2 (two) times daily. venlafaxine Take 37.5 mg by 0 Ac tive (EFFEXOR-XR) 37.5 MG 24 mouth daily. hr capsule fentaNYL (DURAGESIC) Place 1 patch 0 Active 100 mcg/hr patch onto the skin every third day. predniSONE (DELTASONE) Take 5 mg by 0 Active 5 MG tablet mouth daily. pantoprazole sodium Take 30 mg by 0 Active (PROTONIX ORAL) mouth. ofloxacin (OCUFLOX) 0.3 Place 1 drop into 0 Active % ophthalmic solution the left eye 4 (four) times daily. brimonidine-timolol Place 1 drop into 0 Active (COMBIGAN) 0.2-0.5 % the left eye 2 ophthalmic solution (two) times daily. metoprolol (LOPRESSOR) Take 50 mg by 0 Active 50 MG tablet mouth 2 (two) times daily. colestipol (COLESTID) 5 Take 5 g by mouth 0 Active gram granules 2 (two) times daily. Active Problems Problem Noted Date Chronic pain disorder 10/09/2019 Malfunction of intrathecal infusion pump, initial enco unter 10/09/2019 Encounters Date Type Specialty Care Team Description 10/09/2019 Surgery Flako, REVISION,INTRAT [place] Easley MD PUMP 10/09/2019 Anesthesia Event Her, Keon Quintanilla, WEAVING SUPERVISOR 10/09/2019 Hospital Encounter Flako, Pre-op te sting MD Kaushal 10/08/2019 Hospital Encounter Pre-Admission Testing 10/08/2019 Orders Only Neurosurgery Flako, Pre-op testing MD Kaushal (Primary Dx) 10/08/2019 Orders Only Neurosurgery Kaushal Arriola MD after 04/02/2019 Social History Tobacco Use Types Packs/Day Years Used Date Former Smoker Smokeless Tobacco: Never Used Comments: quit 23 years ago Alcohol Use Drinks/Week oz/Week Comments No Alcohol Habits Answer Date Recorded How often do you have a drink containing alcohol? Never 10/08/2019 How many drinks containing alcohol do you have on a typical Not asked day when you are drinking? How often do you have six or more drinks on one occasion? No t asked Sex Assigned at Date Recorded Not on file Job Start Date Occupation Industry Not on file Not on file Not on file Travel History Travel Start Travel End No recent travel history available. Last Filed Vital Signs Vital Sign Reading Time Taken Blood Pressure 97/56 10/09/2019 11:25 AM APRON OPERATOR Pulse 61 10/09/2019 11:25 AM APRON OPERATOR Temperature 36.4 C (97.6 F) 10/09/2019 11:25 AM APRON OPERATOR Respiratory Rate 18 10/09/2019 11:25 AM APRON OPERATOR Oxygen Saturation 96% 10/09/2019 11:25 AM APRON OPERATOR Inhaled Oxygen Concentration - - Weight 104.2 kg (229 lb 11.5 oz) 10/09/2019 6: 15 AM APRON OPERATOR Height 160 cm (5' 3") 10/09/2019 6:15 AM APRON OPERATOR Body Mass Index 40.69 10/09/2019 6:15 AM APRON OPERATOR Plan of Treatment Not on file Procedures Procedure Name Priority Date/Time Associated Diagnosis Comme nts RHYTHM STRIP - SCAN 10/16/2019 12:42 PM APRON OPERATOR FL FLUORO Routine 10/09/2019 7:37 AM Results for this NON-SPECIFIC UP TO APRON OPERATOR procedure are in 1 HOUR the results section. PROCEDURE W/ C-ARM 10/09/2019 7:00 AM Malfunction of APRON OPERATOR intrathecal infusion pump, initial encounter Chronic pain disorder Case Notes [facility] Special Needs (C-ARM, [employer]) REVISION,INTRATHECAL PUMP 10/09/2019 7:00 AM APRON OPERATOR Malf unction of intrathecal infusion pump, initial encounter Chronic pain disorder Case Notes [facility] Special Needs (C-ARM, [employer]TR[employer]) after 04/02/2019 Results RHYTHM STRIP - SCAN (10/16/2019 12:42 PM APRON OPERATOR) Narrative Performed At This result has an attachment that is no t available. FL fluoro non-specific up to 1 hour (10/09/2019 7:37 AM APRON OPERATOR) Specimen Narrative Performed At FINAL REPORT GE RIS A fluoroscopic unit was utilized for a p rocedure performed in the operating room. No interpretation was re quested. Please refer to the operative report regarding findings. Ple ase refer to PACS for patient radiation dose information. Signed: Jia Linn MD Report Verified Date/Time:10/09/2019 08:26:53 Reading Location: [facility] y Reading Room Procedure Note Interface, External Ris In - 10/09/2019 8:29 AM APRON OPERATOR FINAL REPORT A fluoroscopic unit was utilized for a p rocedure performed in the operating room. No interpretation was re quested. Please refer to the operative report regarding findings. Ple ase refer to PACS for patient radiation dose information. Signed: Jia Linn MD Report Verified Date/Time: 10/09/2019 0 8:26:53 Reading Location: [facility] Radi[facility] y Reading Room Performing Organization Address City/State/Zipcode Phone Number GE RIS after 04/02/2019 Insurance Payer Benefit Plan / Group Subscriber ID Type Phone A ddress MEDICARE MEDICARE A B xxxxxxxxxxx Medicare Advance Directives For more information, please contact:[facility], [place] [phone] Code Status Date Activated Date Inactivated Comments Full Code 10/09/2019 5:49 AM 10/09/2019 2:24 PM This code status was determined by: Patient
--- OUTSIDE RECORDS SUMMARY | 2020-04-02 15:06 | XMS REPORT | Continuity of Care Document ---
:1965 Author Organization [facility] t Address [address] [place] [address] Care Team Providers Name Role Phone Ashely ORDONEZ Primary Care Physician Chanelle Baum PA-C Attending Clinician Deandre ORDONEZ Attending Clinician Zackary ROBLES Attending Clinician Unavailable Jose Weir MD Attending Clinician Rosina Soria MD Attending Clinician Jasmin ROBLES Attending Clinician Unavailable Faina ORDONEZ Attending Clinician Lucila Camacho NP Attending Clinician Chong ROBLES Attending Clinician Unavailable Flako ORDONEZ Attending Clinician Nusrat Her CRNA Attending Clinician [phone] Ryley Hammond Attending Clinician Manpreet Maldonado MD Attending Clinician Andre Attending Clinician Unavailable Torres Watts MD Attending Clinician Alexander Velasquez MD Attending Clinician Fili Ratliff RN Attending Clinician Unavailable Kt ROBLES Attending Clinician Unavailable THEA Admitting Clinician Unavailable SARI Admitting Clinician Unavailable Payers Payer Name Policy Policy Number Effective Expiration Source Type Date Date MEDICAREMEDICARE PART A xxxxxxxxxxx 2013 [place] AND 00:00:00 [facility] [place] xxxxxxxxxxx [facility] Problems Condition Condition Condition Status Onset Resolution Last Treating Co mments Source Name Details Category Date Date Treatment Clinician Date Chronic Chronic Disease Active [facility]04 [facility] - disorder disorder 00:00: Medica l 00 Center Malfunctio Malfunctio Disease Active [facility] n of n of 2-04 [facility] - intratheca intratheca 00:00: Me dical l infusion l infusion 00 Ce nter pump, pump, initial initial encounter encounter Pericardia Pericardia Disease Active [place] effusion l effusion 9-24 Me thodi 00:00: st 00 Ataxia Ataxia Disease Active [place] 6-13 [facility] 00:[facility]: st 00 Intractabl Intractabl Disease Active [place] e headache e headache 5-29 Me thodi 00:00: st 00 Arthritis Arthritis Disease Active 2017-09 [facility] 0-10 [facility] 00:00: st 00 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[place] artery artery 0-10 [facility] disease disease 00:00: st involving involving 00 sitka sitka coronary coronary artery of artery of sitka sitka heart heart without without angina angina pectoris pectoris 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 Anderso upper lobe upper lobe 00:00: n of right of right 00 lung lung Rheumatoid Rheumatoid Disease Active 2018 M D arthritis arthritis 9-28 Stu rso 00:00: n 00 Bilateral Bilateral Disease Active [facility] lung lung 8-17 [facility] cancer cancer 00:00: st 00 Distal Distal Disease Active 2015-09 [place] radius radius 1-15 [facility] fracture, fracture, 00:00: st left left 00 Displaced Displaced Disease Active 2015-09 [facility] fracture fracture 1-10 Method i of distal of distal 00:00: st end of end of 00 left left radius radius Allergies, Adverse Reactions, Alerts Allergy Allergy Status Severity Reaction(s) Onset Inactive Treating Comm ents Source Name Type Date Date Clinician Adhesive Propensi Active Rash [facility]03 [facility] - adverse 00:00: Medical reaction 00 Center s Celecoxi Propensi Active Swelling 2015-09 [place] ty to 1-10 [facility] adverse 00:00: st reaction 00 s to drug Meperidi Propensi Active Hives 2015-09 [place] ty to 1-10 [facility] adverse 00:00: st reaction 00 s to drug Adhesive Propensi Active 2012-09 [place] Tape-Naye ty to 1-20 [facility] icones adverse 00:00: st reaction 00 s to drug Celecoxi Propensi Active Swelling 2011-[address] b ty to 2-12 [facility] - adverse 00:00: Medical reaction 00 Center s Meperidi Propensi Active Hives [facility] ty to 6-18 [facility] - adverse 00:00: Medical reaction 00 Center s Family History Family Member Diagnosis Comments Start Date Stop Date Source Natural brother -Colon cancer And erson Natural brother Cancer [facility] ethodist Natural mother -Breast cancer And ersgwendolyn Natural mother -Head and Neck And ersgwendolyn Natural mother Cancer [facility] thodist Natural sister -Thoracic or Lung [place] Natural sister Cancer [facility] thodist Social History Social Habit Start Date Stop Date Quantity Comments Source History SDOH [facility] - Alcohol Std Drinks Medica l Center History SDOH [facility] - Alcohol Binge Medical Jennifer ter Sex Assigned At [facility] ethodist Exposure to Not sure [facility] Metho dist SARS-CoV-2 (event) Cigarettes smoked 2020-01-08 2020-01-08 Che [facility] [facility] current (pack per 00:00:00 00:00:00 day) - Reported Cigarette 2020-01-08 2020-01-08 [place] Method ist pack-years 00:00:00 00:00:00 Alcohol intake 2020-01-08 2020-01-08 Current drinker [place] [facility] 00:00:00 00:00:00 of alcohol (finding) History SDOH 2019-10-08 2019-10-[address] [facility] - Alcohol Frequency 00:00:00 00:00:00 Medical Center Tobacco Comment 2018-06-09 2018-06-09 Quit 20 years Jeannette n [facility] 00:00:00 00:00:00 ago Alcohol Comment 2018-06-09 2018-06-09 Quit over a year Jay frazier [employer] [facility] 00:00:00 00:00:00 ago Tobacco use and 2018-06-02 2018-06-02 Never used MD Ricardo on exposure 00:00:00 00:00:00 History of tobacco 1994-04-11 Current smoker [place] [facility] [facility] use 00:00:00 Smoking Status Start Date Stop Date Source Former smoker 2020-01-08 00:00:00 2020-01-08 00:00:00 Chinedu Coronado Medications Ordered Filled Start Stop Current Ordering Indication Dosage Frequency Signature Comments Components Source Medication Medication Date Date Medication? Clinician (SIG) Name Name amoxicillin 2020-0 Yes 850mg Take 850 [place] /potassium 6-02 mg by [facility] clav 13:06: mouth. st (AUGMENTIN 16 ORAL) levothyroxi 2020-0 Yes 50ug QD Take 50 [place] ne 5-05 mcg by [facility] (SYNTHROID, 09:51: mouth st LEVOTHROID) 26 every 50 MCG morning. tablet traZODone 2020-0 Yes 50mg QD Take 50 mg [place] (DESYREL) 5-05 by mouth Method i 100 MG 09:51: nightly. st tablet 26 metoprolol 2020-0 Yes 50mg QD Take 50 mg [place] succinate 5-05 by mouth Method i XL 09:51: daily. st (TOPROL-XL) 26 50 mg 24 hr tablet gabapentin 2020-0 Yes 400mg Q.5D Take 400 [place] (NEURONTIN) 5-05 mg by Methodi 800 mg 09:51: mouth 2 st tablet 26 (two) times a day. temazepam 2020-0 Yes 30mg QD Take 30 mg [place] (RESTORIL) 5-05 by mouth Metho di 30 mg 09:51: nightly as st capsule 26 needed for sleep. sertraline 2020-0 Yes 100mg QD Take 100 [place] (ZOLOFT) 5-05 mg by Methodi 100 MG 09:51: mouth st tablet 26 nightly. pantoprazol 2020-0 Yes 40mg QD Take 40 mg Che e 5-05 by mouth Methodi (PROTONIX) 09:51: daily. st 40 MG EC 26 tablet albuterol 2020-0 Yes 2{puff} Inhale 2 [place] (PROAIR 5-05 puffs. [facility] HFA) 90 09:51: st mcg/actuati 26 on inhaler furosemide 2020-0 Yes 40mg Take 40 mg [place] (LASIX) 20 5-05 by mouth. Meth sirena mg tablet 09:51: st 26 potassium 2020-0 Yes 10meq Take 10 [place] chloride 5-05 mEq by [facility] (MICRO-K) 09:51: mouth. st 10 MEQ CR 26 capsule multivitami 2020-0 Yes 1{tbl} QD Take 1 [place] with 5-05 tablet by [facility] minerals 09:51: mouth st tablet 26 daily. colestipol 2020-0 Yes 5g Q.5D Take [address] (COLESTID) 2-04 by mouth 2 Javed es - 5 gram 06:09: (two) Medical granules 29 times Center daily. metoprolol 2020-0 Yes 50mg Q.5D Take [address] (LOPRESSOR) 2-04 by mouth 2 Maria kes - 50 MG 06:08: (two) Medical tablet 44 times Center daily. predniSONE 2020-0 2020- No Post-radiat 40mg QD Take 2 Che (DELTASONE) 2-04 02-18 ion tablets Meth sirena 20 mg 00:00: 23:59 pneumonitis ([address] tablet 00 :00 (HCC) total) by mouth daily for 14 days. gabapentin 2020-0 Yes 300mg Q.5D Take [address] (NEURONTIN) 2-03 mg by [facility] - 300 MG 17:44: mouth 2 Medical capsule 42 (two) Center times daily. venlafaxine 2020-0 Yes 37.5mg QD Take 37.[address] (EFFEXOR-XR 2-03 mg by [facility] - ) 37.5 MG 17:44: mouth Medical 24 hr 42 daily. Center capsule fentaNYL 2020-0 Yes 1{patch Place [address] (DURAGESIC) 2-03 } patch onto Maria kes - 100 mcg/hr 17:44: the skin Med ical patch 42 every Center third day. predniSONE 2020-0 Yes 5mg QD Take [address] (DELTASONE) 2-03 by mouth Luke s - 5 MG tablet 17:44: daily. Medi vaishnavi 42 Center pantoprazol 2020-0 Yes 30mg Take [address] e sodium 2-03 by mouth. [facility] - (PROTONIX 17:44: Medical ORAL) 42 Center ofloxacin 2020-0 Yes 1[drp] Q.25D Place [address] (OCUFLOX) 2-03 drop into [facility]ukes - 0.3 % 17:44: the left Medical ophthalmic 42 eye 4 Center solution (four) times daily. brimonidine 2020-0 Yes 1[drp] Q.5D Place [address] -timolol 2-03 drop into [facility]ukes - (COMBIGAN) 17:44: the left Med ical 0.2-0.5 % 42 eye 2 Center ophthalmic (two) solution times daily. lisinopril- 2020-0 Yes 1{tbl} QD Take [address] hydroCHLORO 2-03 tablet by Javed es - thiazide 17:44: mouth Medical (PRINZIDE,Z 41 daily. Center ESTORETIC) 20-12.5 mg per tablet TOBRAMYCIN 2020-0 Yes Apply to [facility] St OPHT 2-03 eye(s). [facility]ukes - 17:44: Medical 41 Center FUROSEMIDE 2020-0 Yes 50mg Q.5D Take [address] ORAL 2-03 by mouth 2 [facility] - 17:44: (two) Medical 41 times Center daily. levothyroxi 2020-0 Yes 75ug Take [address] ne 2-03 mcg by [facility]ukes - (SYNTHROID, 17:44: mouth Medic al LEVOTHROID) 41 Every Center 75 MCG morning on tablet an empty stomach. butalb/acet 2020-0 Yes Take by [facility] aminophen/c 2-03 mouth as Luke s - affeine 17:44: needed. Medical (FIORICET 41 Center ORAL) temazepam 2020-0 Yes 30mg Take [address] (RESTORIL) 2-03 by mouth [facility] - 30 mg 17:44: every Medical capsule 41 night as Center needed for Sleep. sumatriptan 2020-0 Yes Take by [facility] succinate 2-03 mouth as [facility] - (IMITREX 17:44: needed. Medica l ORAL) 41 Center colchicine 2019- Yes .3mg Take 0.3 [facility] 0.6 mg 0-23 mg by Methodi tablet 00:00: mouth. st 00 predniSONE 2018- Yes DAILY [place] (DELTASONE) 0-22 [facility] 20 mg 00:00: st tablet 00 LORAZepam 2018-09 Yes 1mg Q6H Take 1 mg [facility] (ATIVAN) 1 0-01 by mouth Metho di MG tablet 00:00: Every 6 st 00 hours while awake as needed (RT). colchicine 2018- 2019- No .3mg QD Take 0.5 [place] 0.6 mg 06-01- tablets Methodi tablet 00:00: 23:59 (0.[address] 00 :00 total) by mouth daily for 30 days. colchicine 2018- 2019- No .6mg QD Take 1 [place] 0.6 mg 06-01- tablet Methodi tablet 00:00: 00:00 (0.[address] 00 :00 total) by mouth daily for 30 days. benzonatate 2019- No 100mg Q6H Take 1 [place] (TESSALON) 9- 10-05 capsule Metho di 100 MG 00:00: 23:59 ([address] capsule 00 :00 total) by mouth every 6 (six) hours as needed for cough for up to 10 days. tiZANidine 2019- No 4mg Q.25D Take 4 mg Che (ZANAFLEX) 05-29-24 by mouth 4 Me thodi 4 MG tablet 01:10: 00:00 (four) st 45 :00 times a day as needed for muscle spasms. SUMAtriptan 2019- No 100mg Take 100 Che (IMITREX) 05-29-24 mg by Methodi 50 MG 01:09: 00:[address] tablet 46 :00 as needed for migraine. May repeat in 2 hours if unresolved . Do not exceed 200 mg in 24 hours. colestipoL Yes 1g Take 1 g [place] (COLESTID) 7-13 by mouth. Meth sirena 1 gram 00:00: st tablet 00 colestipol Yes 1g Take 1 g MD (COLESTID) 9-28 by mouth Baldemar so 5 gram 15:13: daily. n granules 37 pantoprazol Yes 40mg Take 40 mg MD e 9-28 by mouth [place]o (PROTONIX) 15:13: daily with n 40 mg EC 37 breakfast. tablet polyethylen 2018-0 Yes constipatio 17g Take 17 g MD e glycol 9-28 n by mouth [place] (MIRALAX) 15:13: daily. n 17 g packet 37 albuterol 2018-0 Yes bronchospas 2{puff} Inhale 2 MD (VENTOLIN 9-28 m puffs by Davion o HFA,PROAIR 15:13: prevention mouth n HFA) 90 37 every 6 mcg/puff (six) inhaler hours as needed for wheezing or shortness of breath. potassium 2018-0 Yes hypokalemia 10meq Take 10 MD chloride -28 prevention mEq by And erso (MICRO-K) 15:13: mouth as n 10 mEq CR 37 needed for capsule hypokalemi a. fentaNYL 2018-[address] 75 MD (DURAGESIC) 9-28 mcg/hr Davion o 100 mcg/hr 15:11: patch on n transdermal 33 the skin patch every 72 hours. furosemide 2018-0 Yes 40mg Take 40 mg M D (LASIX) 20 06-02 by mouth Baldemar so mg tablet 15:11: as needed. n 33 gabapentin 2018-0 Yes 800mg Take 800 MD (NEURONTIN) 9-28 mg by Anderso 800 mg 15:11: mouth n tablet 33 every 6 (six) hours. levothyroxi 2018-0 Yes 50ug Take 50 MD ne 9-28 mcg by Anderso (SYNTHROID, 15:11: mouth n LEVOTHROID) 33 every 50 mcg morning. tablet metoprolol 2018-0 Yes 50mg Take 50 mg M D tartrate -28 by mouth Anderso (LOPRESSOR) 15:11: every n 50 mg 33 morning. tablet ondansetron 2018-0 Yes 4mg Take 4 mg M D (ZOFRAN) 4 -28 by mouth Baldemar so mg tablet 15:11: every 8 n 33 (eight) hours as needed. OFLOXACIN 2018-0 Yes 1[drp] Administer MD OPHTHALMIC -28 1 drop Anderso 15:11: into the n 33 left eye every 6 (six) hours. prednisoLON 2018-0 Yes 1[drp] Administer MD E acetate -28 1 drop [place] (PRED 15:11: into the n FORTE) 1% 33 left eye ophthalmic every 6 suspension (six) hours. sertraline Yes 50mg Take 50 mg M D (ZOLOFT) 50 9-28 by mouth Stu rso mg tablet 15:11: every n 33 evening. folic acid 2019- No Bilateral 800ug QD Take 1 Che (FOLVITE) 18 09-18 lung cancer tablet Methodi 800 MCG 00:00: 23:59 (HCC) ([address] tablet 00 :00 total) by mouth daily. oxyCODONE Yes 15mg Take 15 mg MD (ROXICODONE 05-12 by mouth Stu rso ) 15 mg 00:00: every 8 n immediate 00 (eight) release hours as tablet needed. ipratropium Yes 3mL Q.25D Take 3 mL Che -albuterol 04-27 by [facility] (DUO-NEB) 00:00: nebulizati st 0.5-2.5 00 on 4 mg/mL (four) nebulizer times a day. tiZANidine Yes 4mg Take 4 mg MD (ZANAFLEX) 5-20 by mouth Baldemar so 4 mg tablet 00:00: twice n 00 daily. Vital Signs Vital Name Observation Time Observation Value Comments Source Body temperature 2020-02-05 13:05:00 35.89 [place] Amanda Coronado Body weight 2020-02-05 13:05:00 106.595 kg Chinedu Coronado BMI 2020-02-05 13:05:00 42.98 kg/m2 Chinedu Coronado Systolic blood 2019-10-30 12:54:00 113 mm[Hg] Jeannette n [facility] pressure Diastolic blood 2019-10-30 12:54:00 76 mm[Hg] [place] on [facility] pressure Heart rate 2019-10-30 12:54:00 91 /min Chinedu Coronado Respiratory rate 2019-10-30 12:54:00 17 /min Amanda Coronado Body height 2019-10-30 12:54:00 157.5 cm Chiendu Coronado Oxygen saturation in 2019-10-30 12:54:00 97 /min Chinedu Coronado Arterial blood by Pulse oximetry Systolic blood 2019-10-09 11:25:00 97 mm[Hg] NAYANA [facility] Diastolic blood 2019-10-09 11:25:00 56 mm[Hg] [facility] Heart rate 2019-10-09 11:25:00 61 /min [facility] Body temperature 2019-10-09 11:25:00 36.44 [place] [facility] Respiratory rate 2019-10-09 11:25:00 18 /min [facility] Oxygen saturation in 2019-10-09 11:25:00 96 /min [facility] Arterial blood by Medical Ce nter Pulse oximetry Body height 2019-10-09 06:15:00 160 cm [facility] Body weight Measured 2019-10-09 06:15:00 104.2 kg [facility] BMI 2019-10-09 06:15:00 40.69 kg/m2 [facility] Procedures Procedure Date / Time Performing Clinician Source Performed XR KNEE 4+ VW RIGHT 2020-03-14 13:57:17 Rg Baum [employer] PET CT SKULL BASE TO MID 2020-02-05 11:28:43 Jakob Carrera [employer] [facility] THIGH POC GLUCOSE 2020-02-05 10:08:00 Jakob Carrera Meth odist MRI LUMBAR SPINE WO 2020-01-25 10:46:10 Melvina Soria [employer] [facility] CONTRAST MRI THORACIC SPINE WO 2020-01-25 10:44:05 Melvina Soria [employer] [facility] CONTRAST MRI CERVICAL SPINE WO 2020-01-25 09:22:00 Melvina Soria [employer] [facility] CONTRAST XR CHEST 2 VW 2019-12-19 00:00:00 Provider, Historical Che [facility] XR CHEST EXTERNAL STUDY 2019-12-18 22:10:00 Courtney Weir [facility] CT CHEST EXTERNAL STUDY 2019-12-17 03:51:00 Courtney Weir [employer] [facility] XR CHEST EXTERNAL STUDY 2019-12-17 02:27:00 Courtney Weir [facility] CT CHEST EXTERNAL STUDY 2019-12-17 00:00:00 Provider, Historical Chinedu [facility] CT HEAD EXTERNAL STUDY 2019-12-07 15:46:00 Courtney Weir on [employer] [facility] XR CHEST EXTERNAL STUDY 2019-12-07 00:14:00 Courtney Weir [facility] CT HEAD EXTERNAL STUDY 2019-12-07 00:00:00 Provider, Historical Chinedu Coronado CARDIAC PET MYOCARDIAL 2019-12-07 00:00:00 Provider, Historical Chinedu Coronado PERFUSION IMAGING XR CHEST 2 VW 2019-12-06 00:00:00 Provider, Historical Chinedu Coronado CT CHEST WO CONTRAST 2019-10-30 11:00:00 Courtney Weir RHYTHM STRIP - SCAN 2019-10-16 12:42:06 ProviderPaty [facility] [place] FLUORO NON-SPECIFIC UP 2019-10-09 07:37:00 [place] Arirola [facility] - TO 1 HOUR [facility] Center REVISION,INTRATHECAL PUMP 2019-10-09 07:00:00 [place] [facility] PROCEDURE W/ C-ARM 2019-10-09 07:00:00 Kaushal Arriola [facility] XR CHEST 1 VW PORTABLE 2019-10-04 12:05:06 Jessica Miller FUNGUS CULTURE 2019-10-04 10:58:00 Courtney Weir Meth odist RESPIRATORY CULTURE 2019-10-04 10:58:00 Courtney Weir AFB STAIN 2019-10-04 10:58:00 Courtney Weir GRAM STAIN 2019-10-04 10:58:00 Courtney Weir [place] RESPIRATORY PATHOGEN 2019-10-04 10:58:00 Courtney Weir PANEL CYTOLOGY 2019-10-04 10:57:00 Courtney Weir (NON-GYNECOLOGICAL) REQUEST VA AN ELECTIVE 2019-10-04 10:16:34 Michaelle Maldonado ENDOTRACHEAL AIRWAY [place] CYTOLOGY 2019-10-04 10:15:00 Courtney Weir Meth odist (NON-GYNECOLOGICAL) REQUEST AFB CULTURE 2019-10-04 09:58:[address] CHEST WO CONTRAST 2019-10-04 08:31:14 Courtney Weir CBC WITH PLATELET AND 2019-10-02 11:56:00 Courtney Weir DIFFERENTIAL COMPREHENSIVE METABOLIC 2019-10-02 11:56:00 Courtney Weir PANEL PROTHROMBIN TIME WITH INR 2019-10-02 11:56:00 Courtney Weir [place] [facility] PARTIAL THROMBOPLASTIN 2019-10-02 11:56:00 Courtney Weir on [facility] Witness TIME (PTT) CT CHEST WO CONTRAST 2019-09-20 12:19:11 Osman Watts [employer] [facility] A. PET CT SKULL BASE TO MID 2019-07-16 10:38:27 Jakob Carrera [employer] [facility] THIGH POC GLUCOSE 2019-07-16 09:23:00 Jakob Carrera Meth odist MRI LUMBAR SPINE WO 2019-06-29 10:30:00 Estella Melvina Almaguer Jay frazier [employer] [facility] CONTRAST HC COMPLETE BLD COUNT 2019-05-31 05:30:00 Napoleon Velasquez [employer] [facility] W/AUTO DIFF BASIC METABOLIC PANEL 2019-05-31 04:00:00 Napoleon Velasquez ESTIMATED GFR 2019-05-31 04:00:00 Napoleon Velasquez Meth [place] URINALYSIS, AUTOMATED 2019-05-30 18:30:00 Billie Ramirez WITH MICROSCOPY TROPONIN 2019-05-30 17:40:00 Yanni Joe ECG 12-LEAD 2019-05-30 16:47:04 Napoleon Velasquez Meth [place] HC COMPLETE BLD COUNT 2019-05-30 05:40:00 Napoleon Velasquez [employer] [facility] W/AUTO DIFF BASIC METABOLIC PANEL 2019-05-30 04:00:00 Napoleon Velasquez ESTIMATED GFR 2019-05-30 04:00:00 Napoleon Velasquez Meth odist NM LUNG VENTILATION 2019-05-29 16:16:51 Luis Manuel Holman PERFUSION XR CHEST 1 VW PORTABLE 2019-05-29 15:40:11 Abbey Krueger [employer] [facility] TTE COMPLETE, WO 2019-05-29 10:58:00 Emily Collins CONTRAST, W DOPPLER ([id number]) HC COMPLETE BLD COUNT 2019-05-29 01:45:00 Emily Collins W/AUTO DIFF PROTHROMBIN TIME WITH INR 2019-05-29 01:45:00 Emily Collins PARTIAL THROMBOPLASTIN 2019-05-29 01:45:00 Emily Collins TIME (PTT) COMPREHENSIVE METABOLIC 2019-05-29 01:45:00 Emily Collins PANEL B NATRIURETIC PEPTIDE 2019-05-29 01:45:00 Emily Collins TROPONIN 2019-05-29 01:45:00 Emily Collins ethodist ESTIMATED GFR 2019-05-29 01:45:00 Emily Collins ethodist ECG 12-LEAD 2019-05-29 01:15:24 Emily Collins ethodist PET CT SKULL BASE TO MID 2019-04-12 12:42:52 Jakob Carrera THIGH POC GLUCOSE 2019-04-12 11:21:00 Jakob Carrera Meth odist Plan of Care Planned Activity Planned Date Details Comments Source Future Scheduled 2022-10-04 Screening for [facility] thodist Test 00:00:00 malignant neoplasm of cervix (procedure) [code = 663021508] Future Scheduled 2020-04-05 INFLUENZA VACCINE [place] [facility] Test 00:00:00 [code = INFLUENZA VACCINE] Future Scheduled 2013 BREAST CANCER [place] [facility] thodist Test 00:00:00 SCREENING [code = BREAST CANCER SCREENING] Future Scheduled 2013 COLONOSCOPY SCREENING lj [facility] Test 00:00:00 [code = COLONOSCOPY SCREENING] Future Scheduled 2013 SHINGLES VACCINES [place] [facility] Test 00:00:00 (#1) [code = SHINGLES VACCINES (#1)] Encounters Start End Encounter Admission Attending Care Care Encounter Source Date/Time Date/Time Type Type Clinicians Facility Department ID 2020-03-14 2020-03-14 Outpatient [facility] [id number] [place] 00:00:00 00:00:[address] 2020-03-14 2020-03-14 Outpatient [facility] [id number] [place] 00:00:00 00:00:[address] 2020-02-05 2020-02-05 Outpatient JAKOB CARRERA [facility] [id number] [place] 00:00:00 00:00:[address] 2020-02-05 2020-02-05 Outpatient JAKOB CARRERA [facility] [id number] [place] 00:00:00 00:00:[address] 2020-01-25 2020-01-25 Outpatient ESTELLA [facility] [id number] [place] 00:00:00 00:00:00 MELVINA [address] 2020-01-25 2020-01-25 Outpatient ESTELLA [facility] [id number] [place] 00:00:00 00:00:00 MELVINA [address] 2020-01-25 2020-01-25 Outpatient ESTELLA, [facility] [id number] [place] 00:00:00 00:00:00 MELVINA [address] 2020-01-08 2020-01-08 Outpatient COURTNEY WEIR [facility] [id number] [place] 00:00:00 00:00:[address] 2020-01-03 2020-01-03 Outpatient COURTNEY WEIR [facility] [id number] [place] 00:00:00 00:00:[address] 2020-01-03 2020-01-03 Outpatient COURTNEY WEIR [facility] [id number] [place] 00:00:00 00:00:[address] 2020-01-03 2020-01-03 Outpatient COURTNEY WEIR [facility] [id number] [place] 00:00:00 00:00:[address] 2020-01-03 2020-01-03 Outpatient COURTNEY WEIR [facility] [id number] [place] 00:00:00 00:00:[address] 2020-01-03 2020-01-03 Outpatient COURTNEY WEIR [facility] [id number] [place] 00:00:00 00:00:[address] 2019-10-30 2019-10-30 Outpatient COURTNEY WEIR [facility] [id number] [place] 00:00:00 00:00:[address] 2019-10-30 2019-10-30 Outpatient COURTNEY WEIR [facility] [id number] [place] 00:00:00 00:00:[address] 2019-10-05 2019-10-05 Office BRENDAN Balderas [id number] 10:32:20 14:51:51 Visit Christopher AMBULATOR [id number] Ryley Y [id number] 2019-10-04 2019-10-04 Outpatient COURTNEY WEIR [facility] [id number] [place] 00:00:00 00:00:[address] 2019-10-04 2019-10-04 Outpatient COURTNEY WEIR [facility] [id number] [place] 00:00:00 00:00:[address] 2019-09-20 2019-09-20 Outpatient PRABHJOT, [facility] [id number] [place] 00:00:00 00:00:00 OSMAN 751 Method i 2019-07-16 2019-07-16 Outpatient JAKOB CARRERA [facility] [id number] [place] 00:00:00 00:00:[address] 2019-06-29 2019-06-29 Outpatient ESTELLA, [facility] [id number] [place] 00:00:00 00:00:00 MELVINA [address] 2019-05-29 2019-05-31 Inpatient SARI, [facility] [id number] [place] 00:00:00 00:00:00 NAPOLEON 684 Method i Results Test Description Test Time Test Comments Results Result [facility] e Comments PET/CT Skull [facility] To Mid 2 Radiology Results Method ist Thigh 13:02:56 - 02/05/2020 1:06 PM CDTPROCEDURE: PET CT SKULL BASE TO MID THIGHINDICATION: Restaging lung cancer. Subsequent treatment strategy. TECHNIQUE: Blood glucose measured at the time of injection was 108 mg/dL. The patient was then injected with 10.9 mCi of 18F-FDG, IV. Approximately one hour later, PET images were acquired from the skull base to the mid thighs. Corresponding, low dose, non-contrast CT scanning was performed as part of the attenuation correction process. Automated dose exposure control was utilized.COMPARISON: PET CT scan 07/16/2019, outside chest CT 12/17/2019.FINDINGS: Head and neck: No suspicious brain uptake. Physiologic uptake in the sinuses, orbits, nasopharynx, [...] has developed. Status post right upper lobectomy. Prior granulomatous disease in the right lower lobe. Abdomen: Physiologic uptake in the stomach, spleen, pancreas, liver, and adrenal glands. No abnormal retroperitoneal or mesenteric lymph node uptake. Bowel uptake is physiologic. Pelvis: Physiologic bowel uptake. No abnormal pelvic lymph node uptake. Review of the osseous structures demonstrates no suspicious uptake. 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 Mild uptake is present within an associated right knee effusion. IMPRESSION: 1. No evidence for recurrent or metastatic lung cancer. Probable post radiation changes in the left upper lobe.2. Probable degenerative uptake about the right knee. If there is concern for septic arthritis, consider arthrocentesis. [facility]-[id number] POC glucose 2020-02-05 10:10:28 Test Item Value Reference Range Interpretation Comme nts POC glucose (test code = 108 mg/dL 65-99 H Ope rator Name: Riccardo Hicks [id number]) ID: [id number] hartable: No Action Needed Lab Interpretation (test code = Abnormal 54381-4) [facility] Lumbar Spine Wo [id number] 12:32:37Hm Interface, Radiology Results 01/25/2020 12:35 PM CDTEXAM: MRI LUMBAR SPINE WO CONTRASTCOMPARISON: June 29, 2019.CLINICAL HISTORY: M54.16 Radiculopathy lumbar region, Lumbar radiculopathyTECHNIQUE: Multiplanar multisequence examination was performed without contrast.FINDINGS: Sagittal images and straight minimal degenerative anterolisthesis at L4-5. There is mild degenerative disc desiccation throughout the lumbar spine. There are no significant changes in the alignment.L5-S1: There are mild facet joint degenerative changes and ligamentum flavum thickening. There is minimal central bulge.L4-5: There is annular bulging, ligament flavum thickening, and facet hypertrophic and sclerotic changes. There is no significant central canal stenosis.L3-4: There are mild facet joint degenerative changes without significant stenosis.L2-3: There are mild facet joint degenerative changes wit hout stenosis.L1-2: There are no significant abnormalities.Overall, there are no interval changes. IMPRESSION: Stable mild spondylotic changes as discussed above without significant focal protrusion or spinal stenosis.Subtle degenerative anterolisthesis at L4-5 without spondylolysis.[facility]-[id number] [facility] Thoracic Spine Wo [id number] 11:03:01Hm Interface, Radiology Results 01/25/2020 11:06 AM CDTEXAMINATION: MRI THORACIC SPINE WOCONTRASTCLINICAL HISTORY: M54.6 Pain in thoracic spine, M54.6COMPARISON: CT chest 10/30/2019TECHNIQUE: Multiplanar multisequence noncontrast enhanced examination was performed of the thoracic spine.FINDINGS:Moderate thoracic kyphosis. Bulky paravertebral osteophyte formation of the mid to lower thoracic levels. Heterogeneous bone marrow without suspicious osseous lesion. Fatty replacement of the bonemarrow within the T2 and T3 vertebrae. No cord signal abnormality identified. Patent spinal canal atall thoracic levels with no more than minimal posterior disc bulge or protrusion identified. For example, there is a tiny central posterior disc protrusion at T6-T7 and minimal posterior disc bulge at T11-T12. Moderate to severe left neural foraminal narrowing on the left at T8-T9 secondary to facet hypertrophy. Remaining neural foramina appear patent. Scattered nerve root diverticula/perineural rootsleeve cysts. For example, bilaterally at T6-T7 and on the right at T8-T9.IMPRESSION: Mild to moderate degenerative changes of the thoracic spine without significant spinal canal narrowing.Moderate to severe left neural foraminal narrowing at T8-T9.[id number] MethodistMRI Cervical Spine Wo [id number] 10:35:08Hm Interface, Radiology Results 01/25/2020 10:38 AM CDTEXAMINATION: MRI CERVICAL SPINE WOCONTRASTCLINICAL HISTORY: M06.9 Rheumatoid arthritis unspecified, M06.9COMPARISON: MRI cervical spine dated February 17, 2019TECHNIQUE: Multiplanar multisequence noncontrast enhanced examination was performed of the cervical spine.FINDINGS:Vertebral body heights are maintained. No focal marrow lesions or acure edema identified.Cervical alignment is preserved with normal lordosis. There is no significant spondylolisthesis.The cervicomedullary junction is unremarkable. No cord signal abnormality identifi ed. The partially imaged posterior fossa is grossly intact.No gross masses are present in the visualized prevertebral soft tissues. Axial images through the disc spaces demonstrate the following:C1-C2: There is narrowing of the atlantoaxial interval with spurring. There is no significant stenosis.C2-C3: No significant posterior disc disease, spinal canal or neural foraminal stenosis.C3-C4: There isanterior osteophytosis without significant posterior spondylosis. There is no stenosis.C4-C5: There is disc disease with 1 mm anterolisthesis of C4 and disc bulge with minimal effacement of thecal sac w ithout canal narrowing. Uncovertebral arthrosis and facet disease results in moderate left and mild right foraminal narrowing. Findings are stable. The left foramen is less stenotic than suggested on prior exam as noted on today's thin section high-resolution imaging.C5-C6: There is loss of disc height with posterior spondylosis with mild effacement of the ventral thecal sac with mild canal narrowing. Uncovertebral arthrosis and facet disease results in moderate left and mild to moderate right foraminal narrowing. Findings are grossly stable.C6-C7: There is posterior spondylosis with mild effacement of ventral thecal sac. Uncovertebral arthrosis and facet disease is present without stenosis.C7-T1:No significant posterior disc disease, spinal canal or neural foraminal stenosis.IMPRESSION: There are degenerative changes most prominent at C4-5 and C5-6 which appears stable to the prior MRI to slightly improved given differences in technique. There is no progressive stenosis identified. No acute osseous abnormalities appreciated.[facility]-[id number] MethodistXR Chest External [id number] 23:07:29This exam was not acquired at a [employer] facility and has not been interpreted by a [employer] Provider. The exam was imported into our imaging system.[facility] Study 2020-01-03 20:20:28This exam was not acquired at a [employer] facility and has not been interpreted by a [employer] Provider. The exam was imported into our imaging system.[facility] MethodistCT Chest External [id number] 20:20:06This exam was not acquired at a [employer] facility and has not been interpreted by a [employer] Provider. The exam was imported into our imaging system.[facility] MethodistAFB [id number] 00:13:39 Test Item Value Reference Range Interpretation Comments AFB culture No growth Specimen isolate (test after 6 weeks InformationSp ecimen code = 543-9) of Source: Bronch ial alveolar incubation. lavageSpecimen Site: Lung: KOJO BAL Chinedu MethodistFungus [id number] 00:15:30 Test Item Value Reference Range Interpretation Comments Fungus culture No growth Specimen isolate (test after 4 weeks [facility]Sp ec[facility] = 1441) of Source: Bronchi al alveolar incubation. lavageSpecimen Site: Lung: KOJO BAL [facility] MethodistCT Chest Wo [id number] 13:39:00Hm Interface, Radiology Results 10/30/2019 1:42 PM CSTEXAMINATION:CT CHEST WO CONTRASTCLI NICAL HISTORY:R91.8 Other nonspecific abnormal finding of lung field, Z85.118 Personal history of other malignant neoplasm of bronchus and lung, lung mass personal history lung cancerTECHNIQUE:Multiple axial images of the chest were obtained without intravenous contrast. The lack of intravenous contrast reduces the sensitivity of detecting solid organ disease and evaluating vasculature. Sagittal andcoronal computerized reformatted images were also obtained. All CT images were acquired using low-dose technique with automated exposure control.COMPARISON:October 04, 2019FINDINGS:1.Interval decreasein a left upper lobe opacity when compared [...] 16, 2019 suggest the possibility of underlying neoplasm.2.Heart size is normal. Trace pericardial effusion. No mediastinal lymphadenopathy. A port is present over the right chest with tip the catheter stent into the distal SVC.3.Postsurgical changes relating to right upper lo bectomy.4.There are stable, scattered small centrilobular nodules some of which are subpleural in distribution involving lungs bilaterally measuring up to 2 mm.5.A pleural or pericardial effusion is not identified.6.Limited images to the upper abdomen do not demonstrate a suspicious abnormality..IMPRESSION:1.Residual opacity in the left upper lobe in a bronchovascular distribution has decreased in size relative to October 04, 2019. The findings likely relate to improving infection or pneumonitis. There is mild thickening of the adjacent pleura. In addition, there are small scattered centrilobular nodules measuring up to 2 mm scattered throughout the lungs bilaterally and in the dependent portions of the lung bases unchanged significantly from July 26, 2018..[id number] [facility]hovah'S WitnessLegionella [id number] 07:25:46Legionella culture isolateNo Legionella isolated.No Legionella isolated. Comment: Specimen Informatio nSpecimen Source: Bronchial alveolar lavageSpecimen Site: Lung: KO[facility] MethodistNocardia [id number] 09:04:41 Test Item Value Reference Range Interpretation Comments Nocardia No Nocardia Specimen culture isolate isolated after Informatio nSpecimen (test code = 7 days. Source: Bronchi al 1808) alveolar lavage Specimen Site: Lung: KO[facility] BAL [facility] HospitalFL, FLUORO, NON-SPECIFIC, UP TO 1 [id number] 08:26:00Reason for exam:->Chronic PainFINAL REPORT A fluoroscopic unit was utilized for a procedure performed in the operating room. No interpretation was requested. Please refer to the operative report regarding findings. Please refer to PACS for patient radiation dose information. Signed: Jia Qureshi Verified Date/Time: 10/09/2019 08:26:53 Reading Location: [facility] Radiology Reading Room F fluoro non-specific up to 1 hour 2019-10-09 08:26:00Interface, External Ris In - 10/09/2019 8:29 AM CSTFINAL REPORT A fluoroscopic unit was utilized for a procedure performed in the operating room. No interpretation was requested. Please refer to the operative report regarding findings. Please refer to PACS for patient radiationdose information. Signed: Jia Qureshi Verified Date/Time: 10/09/2019 08:26:53 Reading Location: [facility] Radiology Reading [facility] [id number] 12:00:01 Test Item Value Reference Range Interpretation Comments Case number (test code = [id number]) Cytology See link below for (non-gynecological) PDF Lab Report report (test code = 1178) Result status (test code This is Final Report = [id number]) for [id number] [facility] MethodistRespiratory [id number] 19:40:09 Test Item Value Reference Range Interpretation Comments Respiratory Normal oral Specimen culture isolate mic InformationS pecimen (test code = isolated. Source: Bronchi [place] 78433-2) alveolar lavage Specimen Site: Lung: KO[facility] MethodistFungus [id number] 16:31:41 Test Item Value Reference Range Interpretation Comments Fungus smear No fungi Specimen (test code = observed. InformationSpec imen Source: 1443) Bronchial alveo lar lavageSpecimen Site: Lung: KOJO BAL [facility] MethodistAFB [id number] 05:00:32 Test Item Value Reference Range Interpretation Comments AFB stain No acid fast Specimen (test code = bacilli (AFB) InformationSpe cimen 676-7) seen. Source: Bronchi al alveolar lavageSpecimen Site: Lung: KOJO BAL [facility] MethodistRespiratory pathogen [id number] 03:00:52Respiratory pathogen panelNegative for all pathogens tested:Negative for AdenovirusNegative for Coronavirus QPO6Vhuaqmdz for Coronavirus OI53Vtyzdtmf for Coronavirus 229ENegative for Coronavirus GX87Kvzgykxr for Human MetapneumovirusNegative for Rhinovirus/EnterovirusNegative for Influenza ANegative for Influenza A/U9Hojpfwhh for Influenza A/X2Wojwtloc for Influenza A/H1-2009Negative for Influenza BNegative for Parainfluenza Virus 1Negative for Parainfluenza Virus 2Negative for Parainfluenza Virus 3Negative for Parainfluenza Virus 4Negative for Respiratory Syncytial VirusNegative for Bordetella pertussisNegative for Chlamydophila pneumoniaeNegative for Mycoplasma pneumoniaeThis real-time PCR assaydetects the presence of nucleic acids (RNA or DNA) for the respiratory pathogens listed. A result of "Not-detected" does not exclude the possibility of the presence of one or more pathogens at concentrations less than the detectable limits of the assay. Comment: Specimen InformationSpecimen Source: Br onchial alveolar lavageSpecimen Site: Lung: KOJO BAL [facility] NortheastGram [id number] 21:04:51Gram stain isolateRare WBC'sNo organisms seen Comment: Specimen InformationSpecimen Source: Bronchial alveolar lavageSpecimen Site: Lung: KO[facility] MethodistXR Chest 1 Vw [id number] 12:22:51Hm Interface, Radiology Results 10/04/2019 12:25 PM CSTEXAMINATION: XR CHEST 1 VW PORTABLEINDICATION: s p bronchoscopy with biopsy eval for PTXCOMPARISON: Most recent priorIMPRESSION:Focal consolidation in the left upper lobe appears similar when compared to prior chest CT.No evidence of apneumothorax.Stable appearance of the heart and mediastinum.Right chest port with catheter tip overlying the SVC.Old right rib fracture deformities.[facility]-BS12TKEIHtrzwjj EvkiqrxchIepoky9857-87-78 10:16:34ContreMichaelle slater MD 10/04/2019 10:53 AMAirwayPerformed by: Michaelle Maldonado MDAuthorized by: Michaelle Maldonado MD Location: ORUrgency: ElectiveDifficult Airway: No Anesthesiologist: Michaelle Maldonado MDResident/SCRAP PICKER/AA: Rufino Jennings CRNAOther Anesthesia Staff: Andres MacarioPerformed by: other anesthesia staffPreoxygenated with 100% O2: Yes C-spine Precautions Maintained Throughout: No Mask Ventilation: Not attemptedFinal Airway Type: Endotracheal airwayFinal Endotracheal Airway: ETTCuffed: Yes Technique Used: Video laryngoscopyInsertion Site: OralLaryngoscope Blade/Videolaryngoscope Blade Size: 4 (Glidescope 4)ETT Size (mm): 8.5Cuff at minimum occlusion pressure: Yes Measured from: TeethETT to Teeth (cm): 23Placement Verified by: CO2 detection, direct visualization and equal breath sounds Laryngoscopic view: Grade I - full view of glottisRapid Sequence Induction (RSI): Yes Number of Attempts at Approach: 1 Atraumatic; no injury to lips, teeth, or oropharynx. Che MethodistECG 12 [id number] 08:23:31 Test Item Value Reference Range Interpretation Comments Ventricular rate (test 81 code = 253) Atrial rate (test code 81 = 255) VA interval (test code 164 = 266) QRSD interval (test 92 code = 260) QT interval (test code 378 = 264) QTC interval (test code 439 = 265) P axis 1 (test code = 48 267) QRS axis 1 (test code = 59 268) T wave axis (test code 50 = 270) EKG impression (test Normal sinus code = 273) rhythm-Incomplete right bundle branch block-Borderline ECG-In automated comparison with ECG of 29-MAY-2019 01:15,-No significant change was found- [facility] MethodistBasic metabolic [id number] 06:37:42 Test Item Value Reference Range Interpretation Comments Sodium (test code = 2951-2) 140 135- 148 mEq/L Potassium (test code = 2823-3) 3.8 3.5- 5.0 mEq/L Chloride (test code = 2075-0) 102 98- 112 mEq/L CO2 (test code = 8-9) 21 24- 31 mEq/L L Anion gap (test code = 20023-8) 17@ANIO 7- 15 mEq/L H BUN (test code = 3094-0) 40 mg/dL 6-20 H Creatinine (test code = 2160-0) 2.90 mg/dL 0.5-0.9 H Glucose (test code = 2345-7) 127 mg/dL 65-99 H Calcium (test code = 97425-2) 9.1 mg/dL 8.3-10.2 Lab Interpretation (test code = Abnormal 06248-1) [facility] MethodistEstimated [id number] 06:37:39 Test Item Value Reference Range Interpretation Comments Estimated GFR (test 17 mL/min/1.73 m2 Ml palencia Units code = 5488) InterpretationG 1 >=90 Candelaria l or highG2 60-89 Mildly decrease dG3a 45-59 Mil dly to moderately decr uxeliN6v 30-44 Moderately to s everely decreasedG4 15-29 Severe ly decreasedG5 <15 Kidney alpesh lureThe eGFR was calcul ated using the Chron ic Kidney Disease Epidemiology Collaboration ( CKD-EPI) equation. Interpretation is based on recommendati ons of the National [facility]-Kid[facility] ey Disease Outcome s Quality Initiat vernon (NKF-KDOQI) pub lished in 2013. Lab Interpretation Abnormal (test code = 09759-9) Chinedu MethodistUrinalysis, automated with [id number] 20:23:51 Test Item Value Reference Range Interpretation Comments Color, UA (test code = 5778-6) Straw Appearance, UA (test code = 5767-9) Clear Specific gravity, UA (test code = 1.011 1.001-1.035 5811-5) pH, UA (test code = 5803-2) 5.0 5.0-8.5 Protein, UA (test code = 18271-0) Negative Negative Glucose, UA (test code = 10024-5) Negative Negative Ketones, UA (test code = 2514-8) Negative Negative Bilirubin, UA (test code = 5770-3) Negative Negative Blood, UA (test code = 5794-3) Negative Negative Nitrite, UA (test code = 5802-4) Negative Negative Urobilinogen, UA (test code = <2.0 <2.0 20738-9) Leukocyte esterase, UA (test code = Negative Negative 5799-2) Epithelial cells, UA (test code = 1 /HPF 5787-7) WBC, UA (test code = 5821-4) 1 0- 4 /HPF RBC, UA (test code = 37081-7) <1 0- 5 /HPF Bacteria, UA (test code = 34770-2) Few None seen Yeast, UA (test code = 94965-5) None seen Yeast with pseudohyphae, UA (test None seen code = 60314-6) Chinedu ParksTmovvkfyrIbzlinwh9621-84-96 18:31:15 Test Item Value Reference Range Interpretation Comments Troponin (test code = <0.006 0-0.04 Jeannette Coronado 86328-4) Laboratories ch anged methodology eff ective: 01/09/2019 at 10: 00 amThe new method has a 99th percentile cuto ff of 0.040 ng/mL Chinedu CoronadoNM Lung Ventilation Vmyushmme0918-03-07 16:21:57Hm Interface, Radiology Results Incoming - 05/29/2019 4:25 PM CDTCLINICAL HISTORY: SOBTECHNIQUE:Thepatient breathed 15-20 mCi of xenon-133 gas through a closed ventilation system while dynamic imaging of the lungs was performed in the posterior and anterior projections. The patient was then injectedwith 5 mCi of ymktzrafhc-33u-OVW intravenously, followed by imaging of the lungs in anterior, posterior, and oblique projections. FINDINGS: Mildly reduced ventilation and perfusion to the right upper lobe, ventilation worse than perfusion. No other significant perfusion abnormalities.IMPRESSION: Low Probability of pulmonary embolism.[facility]-[id number] MethodistEchocardiogram complete w contrast and 3D if [id number] 13:26:00Interface, Radiology Results In - 05/29/2019 1:26 PM CDT Echocardiography Report [id number] [place] [address] Pat.Name: ERNESTO SUERO [facility].ID: [id number].Date: 05/29/2019 Refer.MD: NAPOLEON VELASQUEZ MD Exam Time: 10:06:00 AM Study Type:Routine Echo Height: 62in Weight: 230lb BSA: 2.03 m2 Age: 12 1965,53Y Sex: FEMALE BP: 138/90 HR: 75 bpm Sonogrphr: SEPIDEH Muniz Pat. Stat.:Inpatient Room: [facility] Study Status:Final Echo Event ID:[id number] Order ID: [id number] Reason forStudy:CP, Chest Pressure, Chest Tightness; PericardialEffusionProcedures: 2D Echo, Colorflow Doppler, Intravenous Lumason ContrastRace: Other S UMMARY: LV EF is normal.Estimated EF is 60- 64%.RV systolic function is normal.Diastolic dysfunction Grade I (Mild): Impaired relaxation with normalLV filling pressures.Small to moderate posterolateral and trace anterior pericardialeffusion.No evidence of cardiac chamber collapse or transmitral ortranstricuspid respirophasic changes. -FINDINGS: LV: LV size is normal. Concentric left ventricular remodeling. LV EF is normal. Overall wall motion is normal. Estimated EF is 60-64%.RV: RV size is enlarged. RV systolic function is normal.LA: LA volume is mildly enlar ged.RA: RA size is normal.AO: Aortic root diameter is normal.SOULEYMANE: Small to moderateposterolateral and trace anterior pericardial effusion. No evidence of cardiac chamber collapse. AV: No structural AV abnormalities noted.MV: No structural MV abnormalities noted.PV: No structural PV abnormalities noted.TV: No structural TV abnormalities noted. Mild tricuspid regurgitation [place]: LV respiratory variation is not present. RV respiratory variation is not present. Diastolic dysfunction Grade I (Mild): Impaired relaxation with normal LV filling pressures. Other: Estimated PA systolic pressure is appx 43-48 mmHg, assuming a mean RAP of 5-10 mmHg. MEASUREMENT S: 2DParasternal [place] Ao An 1.9 cm LVPWd 1 cm Ao Rtd 2.9 cm Index 1.4 cm/m2 LA Ds 4.5 cm IVSd 1.3 cm RWT 0.4 LVIDd 4.4 cm Index 2.2 cm/m2 LV Mass 172.9 g (87-129) LVIDs 2.5 cm LVM Index 85.2 g/m2 LV%fs 42.4 % LA Sng Plane LA Area 23.7 cm2 (8.8-23.4) LA Vol 80.4 ml Index 39.6 ml/m2 LA LngAx 5.7 cm RA Sng Plane RA Vol 38.9 ml Index 19.2 ml/m2 RA LngAx 5.3 cm RA Area 15.4 cm2 (8.3-19.5)LVOT Stroke Vol LVOT 1.9 cm DOPPLERLVOT Stroke Vol LVOT TVI 23.5 cm LVOT CI 2.4 l/m/m2 LVOT SV 66.7 ml HR 73 bpm LVOT CO 4.9 l/min LVOT LVOT Area 2.8 cm2 SVi 32.8 ml/m2 Signed 05/29/2019 01:26 PMCharlyu Latrice GriderB natriuretic [id number] 02:36:51 Test Item Value Reference Range Interpretation Comments BNP (test code = 45239-3) 28 pg/mL 0-100 Chinedu Coronado
[2020-04-02] MEDS ORDERED: HYDROCODONE/APAP 7.5/325 MG TAB ONE (15:29)
[2020-04-02] MEDS ORDERED: ASPIRIN 81 MG CHEWABLE TABLET ONE (15:29)
--- NOTE | 2020-04-02 15:49 | RAD REPORT ---
EXAM DESCRIPTION: RAD - Chest Single View - 04/02/2020 3:17 pm CLINICAL HISTORY: SOB, additional history indicates adenocarcinoma of the lungs. Patient indicates b ilateral lung cancer. COMPARISON: Portable January 06, 2020 TECHNIQUE: AP portable chest image was obtained 04/02/2020 3:17 pm . FINDINGS: Lung volumes are low. This somewhat limits the examination. Portable technique and large b [place] habitus further limit the assessment. Port-A-Cath is in place on the right. Focal linear opacification is present in the medial left upper lung field similar to comparison. Else where no mass is clearly identifiable. No failure or volume overload. No mass or consolidation. Heart and vasculature are normal. Right costophrenic angle blunting is stable. No acute bony abnormality s een. No acute aortic findings suspected. IMPRESSION: No acute cardiopulmonary process. Above detailed chest findings are not significantly different from comparison.
--- NOTE | 2020-04-02 15:50 | RAD REPORT ---
EXAM DESCRIPTION: RAD - Foot Right 3 View - 04/02/2020 3:17 pm CLINICAL HISTORY: Pain;Swelling COMPARISON: No comparisons FINDINGS: No fracture, dislocation or periosteal reaction. No acute destructive bone process identif iable. Minimal IP joint degenerative changes are present. There is narrowing at the first MTP joint w ithout erosive change. Very minimal spurring is seen at the base of the first proximal phalanx. Patie nt has mild degenerative change in the tarsal bones. Small plantar and moderate Achilles spurs are pr esent. No air or foreign body in the soft tissues. IMPRESSION: Right foot degenerative changes are present as detailed. No acute or destructive finding .
[2020-04-02 15:55] LABS: Absolute Lymphocytes (CBC) 1.2 K/uL (0.7-4.9); Basophils % 0.3 % (0-1.3); Hematocrit 35.6 % (36.0-45.0); MPV 8.6 fL (7.6-11.3); RBC Red Blood Cell Count 3.77 M/uL (3.86-4.86)
[2020-04-02 15:56] LABS: Protime INR 0.94
--- NOTE | 2020-04-02 16:18 | RAD REPORT ---
EXAM DESCRIPTION: US - Extrem Venous W Compress Perico - 04/02/2020 4:11 pm CLINICAL HISTORY: PAIN COMPARISON: None. TECHNIQUE: Real-time sonographic evaluation of the bilateral lower extremity common femoral, superfi cial femoral, popliteal and posterior tibial veins was performed. FINDINGS: Normal compressibility, flow augmentation, phasic flow and spontaneous flow are identified in the left and right lower extremity common femoral, superficial femoral, popliteal and posterior t ibial veins. No intraluminal filling defects seen. IMPRESSION: No DVT in either lower extremity.
[2020-04-02 16:22] LABS: ALT/SGPT 17 U/L (12-78); Albumin 3.6 g/dL (3.4-5.0); Alkaline Phosphatase 80 U/L (45-117); BUN Blood Urea Nitrogen 31 mg/dL (7-18); Bicarbonate 28 mmol/L (21-32); Bilirubin Direct < 0.1 mg/dL (0-0.2); Bilirubin Total 0.2 mg/dL (0.2-1.0); Glucose Level 108 mg/dL (74-106); NT PRO-BNP 997 pg/mL (<125); Protein, Total 7.6 g/dL (6.4-8.2); Sodium Level 139 mmol/L (136-145); Troponin (Emerg Dept Use Only) < 0.02 ng/mL (0.0-0.045)
[2020-04-02 16:23] LABS: AST/SGOT 27 U/L (15-37); Magnesium 2.1 mg/dL (1.8-2.4); Potassium 4.9 mmol/L (3.5-5.1)
[2020-04-02] MEDS ORDERED: FUROSEMIDE 40 MG/4 ML VIAL ONE (16:48)
[2020-04-02] MEDS ORDERED: MORPHINE 4 MG/ML SYR ONE ×2 (17:17→18:04)
--- NOTE | 2020-04-02 17:34 | EDPHYS ---
Physician Documentation [facility] Name: Anisha Lindsay Age: 54 yrs Sex: Female : 1965 Arrival Date: 04/02/2020 Time: 13:47 Bed 13 Private MD: ED Physician Brigido Yepez HPI: 04/02 14:55 This 54 yrs old Female presents to ER via Wheelchair with complaints of Foot cp Pain. 14:55 The patient presents with pain, that is acute, swelling, tenderness. The complaints cp affect the dorsum of right foot. Context: resulted from an unknown cause, the patient can fully bear weight, the patient is able to ambulate, with moderate difficulty. 14:55 Onset: The symptoms/episode began/occurred gradually. cp 14:55 The patient or guardian reports chest pain that is located primarily in the anterior cp chest wall, bilaterally. 14:55 Onset: today. The pain does not radiate. Treatment prior to arrival includes: no cp previous treatment. The chest pain is described as a heaviness, shortness of breath. Duration: The patient or guardian reports a single episode. Patient reports having home oxygen and Lasix that she takes as needed for shortness of breath and swelling in legs. Historical: - Allergies: 14:52 Adhesives; ca1 14:52 Celebrex; ca1 14:52 Demerol; ca1 - PMHx: 14:52 Adenocarcinoma of the Lungs; Anxiety; CHF; COPD; CSF leak; Depression; Hypertension; ca1 Hypothyroidism; Myocardial infarction; osteo arthirtis; pericardial effusion; pericarditis; Renal Disease; Rheumatoid Arthritis; Stage 4 Lung Cencer- currently on Chemo; - PSHx: 14:52 Cholecystectomy; Appendectomy; Hysterectomy; Knee surgery; ca1 - Immunization history:: Adult Immunizations not up to date. - Social history:: Smoking status: Patient denies any tobacco usage or history of. ROS: 15:00 Constitutional: Negative for body aches, chills, fever, poor PO intake. cp 15:00 Eyes: Negative for injury, pain, redness, and discharge. cp 15:00 ENT: Negative for drainage from ear(s), ear pain, sore throat, difficulty swallowing, difficulty handling secretions. 15:00 Cardiovascular: Positive for chest pain, Negative for palpitations. 15:00 Respiratory: Positive for shortness of breath, Negative for cough, wheezing. 15:00 Abdomen/GI: Negative for abdominal pain, nausea, vomiting, and diarrhea. 15:00 MS/extremity: Positive for pain, swelling, tenderness, of the dorsum of right foot, Negative for injury or acute deformity, paresthesias. 15:00 Skin: Negative for rash. 15:00 Neuro: Negative for altered mental status, headache, weakness. 15:00 All other systems are negative. Exam: 15:10 Constitutional: The patient appears in no acute distress, alert, awake, cp non-diaphoretic, non-toxic, well developed, well nourished, obese. 15:10 Head/Face: Normocephalic, atraumatic. cp 15:10 Eyes: Periorbital structures: appear normal, Conjunctiva: normal, no exudate, no injection, Lids and lashes: appear normal, bilaterally. 15:10 ENT: External ear(s): are unremarkable, Nose: is normal, Mouth: Lips: moist, Oral mucosa: moist, Posterior pharynx: is normal, airway is patent. 15:10 Chest/axilla: Inspection: normal, Palpation: is normal, no crepitus, no tenderness. 15:10 Cardiovascular: Rate: normal, Rhythm: regular, Edema: very mild lower legs, JVD: is not appreciated. 15:10 Respiratory: the patient does not display signs of respiratory distress, Respirations: normal, no use of accessory muscles, no retractions, labored breathing, is not present, Breath sounds: decreased breath sounds, are not appreciated, stridor, is not appreciated, wheezing: is not appreciated. 15:10 Abdomen/GI: Exam negative for discomfort, distension, guarding, Inspection: abdomen appears normal. 15:10 Musculoskeletal/extremity: Extremities: grossly normal except: noted in the dorsum of right foot: pain, swelling, tenderness, There is no evidence of deformity, Perfusion: the extremity is normally perfused throughout, Sensation intact. 15:10 Skin: cellulitis, is not appreciated, no rash present. 15:10 Neuro: Orientation: is normal, Mentation: is normal, Motor: moves all fours, strength is normal. 15:25 ECG was reviewed by the Attending Physician. cp Vital Signs: 14:48 BP 184 / 102; Pulse 85; Resp 16 S; Temp 98.6(O); Pulse Ox 98% on R/A; Weight 108.86 kg ca1 (R); Height 5 ft. 2 in. (157.48 cm) (R); Pain 8/10; 15:30 BP 159 / 105; Pulse 82; Resp 20; Pulse Ox 99% on R/A; Pain 8/10; jr10 16:09 BP 195 / 85; Pulse 83; Resp 20; Pulse Ox 98% on R/A; jr10 17:20 BP 192 / 99; Pulse 93; Resp 20; Pulse Ox 97% on R/A; jr10 18:05 BP 185 / 85; Pulse 88; Resp 18 S; Pulse Ox 99% on R/A; aa5 14:48 Body Mass Index 43.90 (108.86 kg, 157.48 cm) ca1 MDM: 14:37 Patient medically screened. cp 15:00 Differential diagnosis: dislocation, closed fracture, contusion, abnormal EKG, acute cp myocardial infarction, costochondritis. 17:32 The patient was given aspirin in the Emergency Department. cp 17:32 Data reviewed: vital signs, nurses notes, lab test result(s), EKG, radiologic studies, cp plain films. Test interpretation: by ED physician or midlevel provider: ECG. 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 Response to treatment: the patient's symptoms have mildly improved after treatment, and as a result, I will discharge patient. 17:33 ED course: VS noted. EKG normal, troponin negative and no signs of respiratory distress.cp 04/02 14:52 Order name: Basic Metabolic Panel; Complete Time: 16:31 cp 04/02 16:32 Interpretation: Normal except: GLUC 108; BUN 31; CRE 1.90; GFR 27. cp 04/02 14:52 Order name: CBC with Diff; Complete Time: 16:31 cp 04/02 16:32 Interpretation: Normal except: RBC 3.77; HGB 11.8; HCT 35.6; DAVIS% 75.1; LYM% 15.0. cp 04/02 14:52 Order name: LFT's; Complete Time: 16:31 cp 04/02 16:32 Interpretation: Normal except: GLOB 4.0; A/G 0.9. cp 04/02 14:52 Order name: Magnesium; Complete Time: 16:31 cp 04/02 14:52 Order name: NT PRO-BNP; Complete Time: 16:31 cp 04/02 14:52 Order name: PT-INR; Complete Time: 16:31 cp 04/02 14:52 Order name: Troponin (emerg Dept Use Only); Complete Time: 16:31 cp 04/02 14:52 Order name: XRAY Chest (1 view); Complete Time: 15:55 cp 04/02 14:52 Order name: XRAY Foot RIGHT 3 View; Complete Time: 15:55 cp 04/02 14:52 Order name: US Extremity Venous W Compression Perico; Complete Time: 16:31 cp 04/02 14:52 Order name: EKG; Complete Time: 14:53 cp 04/02 14:52 Order name: Cardiac monitoring; Complete Time: 15:45 cp 04/02 14:52 Order name: EKG - Nurse/Tech; Complete Time: 15:45 cp 04/02 14:52 Order name: IV Saline Lock; Complete Time: 15:45 cp 04/02 14:52 Order name: Labs collected and sent; Complete Time: 15:45 cp 04/02 14:52 Order name: O2 Per Protocol; Complete Time: 15:45 cp 04/02 14:52 Order name: O2 Sat Monitoring; Complete Time: 15:46 cp EC:25 Rate is 81 beats/min. Rhythm is regular. PA interval is normal. QRS interval is normal. cp QT interval is normal. T waves are Flattened in lead aVL. Interpreted by me. Reviewed by me. Administered Medications: 15:44 Drug: Aspirin Chewable Tablet 324 mg Route: PO; jr10 16:42 Follow up: Response: No adverse reaction jr10 15:45 Drug: Hydrocodone-Acetaminophen (7.5 mg-325 mg) 1 tabs Route: PO; jr10 16:43 Follow up: Response: No adverse reaction; Pain is unchanged, physician notified jr10 17:15 Drug: Lasix 20 mg Route: IVP; Site: right antecubital; jr10 17:19 Drug: morphine 4 mg Route: IVP; Site: right antecubital; jr10 18:00 Drug: morphine 4 mg Route: IVP; Site: right antecubital; aa5 18:15 Follow up: Response: No adverse reaction aa5 Disposition: 04/03 07:04 Co-signature as Attending Physician, Brigido Yepez MD I agree with the assessment and kdr plan of care. Disposition: 04/02/20 17:33 Discharged to Home. Impression: Pain in right foot, Chest pain, unspecified, Shortness of breath. - Condition is Stable. - Discharge Instructions: Nonspecific Chest Pain, Shortness of Breath, Foot Pain. - Medication Reconciliation Form, Thank You Letter, Antibiotic Education, Prescription Opioid Use form. - Follow up: Private Physician; When: 2 - 3 days; Reason: Recheck today's complaints. - Problem is new. - Symptoms have improved. Signatures: Dispatcher [employer] [facility] Brigido Yepez MD MD [facility] Keshia Peguero RN RN aa5 Андрей Astorga PA PA cp Peyton Fox RN RN ca1 Alessandra Marquez RN RN jr10 Corrections: (The following items were deleted from the chart) 04/02 16:29 15:57 Chest For PE Angio+CT.RAD.BRZ ordered. [facility] 18:21 17:33 04/02/2020 17:33 Discharged to Home. Impression: Pain in right foot; Chest pain, aa5 unspecified; Shortness of breath. Condition is Stable. Forms are Medication Reconciliation Form, Thank You Letter, Antibiotic Education, Prescription Opioid Use. Follow up: Private Physician; When: 2 - 3 days; Reason: Recheck today's complaints. Problem is new. Symptoms have improved. cp
--- NOTE | 2020-04-02 17:34 | ER ---
Nurse's Notes [facility] Name: Ainsha Lindsay Age: 54 yrs Sex: Female : 1965 Arrival Date: 04/02/2020 Time: 13:47 Bed 13 Private MD: Diagnosis: Pain in right foot;Chest pain, unspecified;Shortness of breath Presentation: 04/02 14:48 Chief complaint: Patient states: R foot, R leg, R knee pain x 3 weeks. Visited an [facility] orthopedic doctor and said she needs a R knee replacement. But she has bilateral lung cancer and cannot do surgery at this time. She has RA and on Fentanyl pump. Coronavirus screen: Patient denies a cough. Patient denies shortness of breath or difficulty breathing. Patient denies measured and/or subjective temperature greater than 100.4F prior to today's visit. Patient denies travel on a cruise ship or to a country the [facility] currently lists as an affected area. Patient denies contact with known and/or suspected case of COVID-19. Proceed with normal triage. Ebola Screen: Patient negative for fever greater than or equal to 101.5 degrees Fahrenheit, and additional compatible Ebola Virus Disease symptoms Patient denies exposure to infectious person. Patient denies travel to an Ebola-affected area in the 21 days before illness onset. No symptoms or risks identified at this time. Initial Sepsis Screen: Does the patient meet any 2 criteria? No. Patient's initial sepsis screen is negative. Does the patient have a suspected source of infection? No. Patient's initial sepsis screen is negative. Risk Assessment: Do you want to hurt yourself or someone else? Patient reports no desire to harm self or others. Onset of symptoms was April 02, 2020. 14:48 Method Of Arrival: Wheelchair ca1 14:48 Acuity: CHEN 3 ca1 Historical: - Allergies: 14:52 Adhesives; ca1 14:52 Celebrex; ca1 14:52 Demerol; ca1 - PMHx: 14:52 Adenocarcinoma of the Lungs; Anxiety; CHF; COPD; CSF leak; Depression; Hypertension; ca1 Hypothyroidism; Myocardial infarction; osteo arthirtis; pericardial effusion; pericarditis; Renal Disease; Rheumatoid Arthritis; Stage 4 Lung Cencer- currently on Chemo; - PSHx: 14:52 Cholecystectomy; Appendectomy; Hysterectomy; Knee surgery; ca1 - Immunization history:: Adult Immunizations not up to date. - Social history:: Smoking status: Patient denies any tobacco usage or history of. Screenin:00 Abuse screen: Denies threats or abuse. Denies injuries from another. Nutritional jr10 screening: No deficits noted. Tuberculosis screening: No symptoms or risk factors identified. Fall Risk No fall in past 12 months (0 pts). No secondary diagnosis (0 pts). IV access (20 points). Ambulatory Aid- None/Bed Rest/Nurse Assist (0 pts). Gait- Weak (10 pts.). Mental Status- Oriented to own ability (0 pts). Assessment: 15:00 General: Appears in no apparent distress. obese, Behavior is cooperative, appropriate jr10 for age, restless. Pain: Complains of pain in "I have pain everywhere, I have RA"; pt reports that she has a fentanyl pain pump "but it's doesn't do a whole lot of good". Neuro: No deficits noted. Cardiovascular: No deficits noted. Denies chest pain, Pulses are all present. Edema is absent. Rhythm is regular. Respiratory: Reports shortness of breath since yesterday "but I have lung CA and I don't have a lobe in my right lung I can't remember which one" Airway is patent Respiratory effort is even, unlabored, Respiratory pattern is regular, symmetrical, Breath sounds are clear the patient has mild shortness of breath. GI: No deficits noted. : No deficits noted. EENT: No deficits noted. Derm: No deficits noted. Musculoskeletal: Reports pain in right leg x1 week, states that it starts in the knee and radiates down right leg "I have a collapsed knee cap and need sx." No swelling, redness, or tenderness to palpation noted to right leg. 17:52 Reassessment: Patient is alert, oriented x 3, equal unlabored respirations, skin aa5 warm/dry/pink. To bedside to d/c pt home, pt requesting more pain medication before d/c home, provider notified. . 17:52 Reassessment: Assisted to bedside commode, pt voided once. . aa5 18:10 Reassessment: Assisted to bedside commode, pt voided. . aa5 18:15 Reassessment: Patient is alert, oriented x 3, equal unlabored respirations, skin aa5 warm/dry/pink. Vital Signs: 14:48 BP 184 / 102; Pulse 85; Resp 16 S; Temp 98.6(O); Pulse Ox 98% on R/A; Weight 108.86 kg ca1 (R); Height 5 ft. 2 in. (157.48 cm) (R); Pain 8/10; 15:30 BP 159 / 105; Pulse 82; Resp 20; Pulse Ox 99% on R/A; Pain 8/10; jr10 16:09 BP 195 / 85; Pulse 83; Resp 20; Pulse Ox 98% on R/A; jr10 17:20 BP 192 / 99; Pulse 93; Resp 20; Pulse Ox 97% on R/A; jr10 18:05 BP 185 / 85; Pulse 88; Resp 18 S; Pulse Ox 99% on R/A; aa5 14:48 Body Mass Index 43.90 (108.86 kg, 157.48 cm) ca1 ED Course: 13:47 Patient arrived in ED. as 14:35 Андрей Astorga PA is PHCP. cp 14:35 Brigido Yepez MD is Attending Physician. cp 14:51 Triage completed. ca1 14:52 Alessandra Marquez RN is Primary Nurse. jr10 14:52 Arm band placed on right wrist. ca1 15:00 Patient has correct armband on for positive identification. Bed in low position. Call jr10 light in reach. Side rails up X2. classroom monitor on. Pulse ox on. NIBP on. 15:00 Inserted saline lock: 20 gauge in right forearm, using aseptic technique. IV is patent, jr10 is intact, Flushed. 15:18 XRAY Chest (1 view) In Process Unspecified. EDMS 15:18 XRAY Foot RIGHT 3 View In Process Unspecified. EDMS 15:23 EKG done, by radio electronics technician. reviewed by Андрей SPRAGUE. at1 16:12 US Extremity Venous W Compression Perico In Process Unspecified. EDMS 18:15 No provider procedures requiring assistance completed. IV discontinued, intact, aa5 bleeding controlled, No redness/swelling at site. Pressure dressing applied. Administered Medications: 15:44 Drug: Aspirin Chewable Tablet 324 mg Route: PO; jr10 16:42 Follow up: Response: No adverse reaction jr10 15:45 Drug: Hydrocodone-Acetaminophen (7.5 mg-325 mg) 1 tabs Route: PO; jr10 16:43 Follow up: Response: No adverse reaction; Pain is unchanged, physician notified jr10 17:15 Drug: Lasix 20 mg Route: IVP; Site: right antecubital; jr10 17:19 Drug: morphine 4 mg Route: IVP; Site: right antecubital; jr10 18:00 Drug: morphine 4 mg Route: IVP; Site: right antecubital; aa5 18:15 Follow up: Response: No adverse reaction aa5 Outcome: 17:33 Discharge ordered by MD. cp 18:15 Discharged to home via wheelchair, with family. aa5 18:15 Condition: stable 18:15 Discharge instructions given to patient, Instructed on discharge instructions, follow up and referral plans. Demonstrated understanding of instructions, follow-up care. 18:21 Patient left the ED. aa5 Signatures: Dispatcher [employer] Sweetie Martel Audri RN RN aa5 Pia Nation, joinery factory worker EKG Tat1 Андрей Astorga PA PA cp Acob, Cheryl, RN RN ca1 Alessandra Marquez RN RN jr10
[2020-04-02 18:49] VITALS: TEMP 98.6
[2020-04-02 18:52] VITALS: BP 192/99; O2SAT 97
--- NOTE | 2020-04-03 07:33 | EKG ---
Test Date: 2020-04-02 Test Time: 15:18:12 Wedding Planner: GINO MEASUREMENT RESULTS: Intervals: Rate: 81 [place]: 148 QRSD: 80 QT: 352 QTc: 408 [place]: P: 57 [place]: 148 QRS: 78 T: 62 INTERPRETIVE STATEMENTS: Normal sinus rhythm Normal ECG Compared to ECG 01/06/2020 10:11:47 No significant changes Electronically Signed On 04-03-20 07:32:22 CDT by [employer]
== END 2020-04-02 18:21 | disposition home or self-care (01) ==
LOC: ER 13:45
DX: R07.9 Chest pain, unspecified (principal); R06.02 Shortness of breath; C34.90 Malignant neoplasm of unspecified part of unspecified bronchus or lung; I10 Essential (primary) hypertension; Z88.5 Allergy status to narcotic agent; Z88.8 Allergy status to other drugs, medicaments and biological substances; Z91.048 Other nonmedicinal substance allergy status
CPT/HCPCS: 93005; 85025; 80048; 36415; 83735; 85610; 80076; 84484; 83880; 71045; 73630; 93970; 96375; 96374; 99284; J1940

== ENCOUNTER 2020-06-18 16:44 | Observation (INO) | payer OTHER ==
--- OUTSIDE RECORDS SUMMARY | 2020-06-18 16:48 | XMS REPORT | Clinical Summary ---
:1965 Author Organization [facility] Address [address] [place] [address] Care Team Providers Name Role Phone MD [...] 0 06/26/2019 Active (DELTASONE) 20 mg tablet colchicine 0.6 mg Take 0.5 tablets 15 tablet 0 06/01/201906/06 tablet (0.3 mg total) by 9 mouth daily for 30 days. predniSONE Take 2 tablets 28 tablet 0 10/09/2019 Exp ired (DELTASONE) 20 mg (40 mg total) by 0 tabletIndications: mouth daily for Post-radiation 14 days. pneumonitis (HCC) amoxicillin/potass Take 850 mg by 0 Discontinued ium clav mouth. 0 (AUGMENTIN ORAL) amoxicillin-pot Take 1 tablet by 10 tablet 0 05/09/2020 clavulanate mouth 2 (two) 0 (Augmentin) times a day for 5 875-125 mg per days. tablet Active Problems Problem Noted Date Pericardial effusion 05/29/2019 Ataxia 02/15/2019 Intractable headache 01/31/2019 Arthritis 06/14/2018 Coronary artery disease involving picayune coronary sobeida ry of picayune heart 06/14/2018 without angina pectoris Bilateral lung cancer 04/21/2018 Distal radius fracture, left 07/20/2016 Displaced fracture of distal end of left radius 2015 Encounters Date Type Specialty Care Team Description 06/18/2020 Travel 05/14/2020 Travel 05/09/2020 Orders Only Oncology Jakob Carrera MD 05/09/2020 Orders Only Oncology Zackary, Bilateral lung cancer TRAVIS Dickson (HCC) (Primary Dx) 05/09/2020 Travel 05/07/2020 Lab Lab Jakob Carrera MD Bilateral lizette g cancer (HCC); Cough 05/07/2020 Office Visit Oncology Jakob Carrera MD Bilateral lizette g cancer (HCC) (Primary Dx); Cough 05/07/2020 Lab Lab Jakob Carrera MD Bilateral lizette g cancer (HCC); Thrombocytopeni a (HCC) 05/07/2020 Hospital Encounter Radiology Jakob Carrera MD Bilater al lung cancer (HCC) 05/07/2020 Travel 03/14/2020 Office Visit Orthopedic [facility] Primary osteoarthritis J., PA-C of right knee ( Primary Dx) 03/14/2020 Travel 03/13/2020 Orders Only Orthopedic Surgery [facility] Acute p ain of right J., PA-C [...] Melvina Soria Rheumat oid arthritis MD Rosina ([facility]) 01/25/2020 Travel 01/23/2020 Transcribe Orders Access Melvina Soria Rheumato id arthritis ([facility]) (Primary Dx); MD Rosina Pain in thoraci c spine 01/21/2020 Transcribe Orders Access Melvina Soria Radiculo tiffany, lumbar MD Rosina region (Primary Dx) 01/21/2020 Transcribe Orders Access Melvina Soria MD 01/08/2020 Telemedicine Cardiothoracic Stephan Weir Lung nodule ( Primary Surgery MD Jose Dx) 01/07/2020 Travel 01/07/2020 Telephone Cardiothoracic Jasmin, Deloris Castaneda MA 01/03/2020 Hospital Encounter Radiology Stephan Weir MD 01/03/2020 Hospital Encounter Radiology Stephan Weir MD 01/03/2020 Hospital Encounter Radiology Stephan Weir MD 01/03/2020 Hospital Encounter Radiology Stephan Weir MD 01/03/2020 Hospital Encounter Radiology Stephan Weir MD 01/03/2020 Orders Only Cardiothoracic Provider, Surgery MD Dustin 01/01/2020 Telephone Cardiothoracic Janice, Surgery Candy Gaytan NP 10/30/2019 Office Visit Cardiothoracic Stephan Weir Pneumonitis ( Primary Surgery MD Jose Dx) 10/30/2019 Hospital Encounter Radiology Stephan Weir Lung mass ; MD Jose History of lung cancer 10/29/2019 Telephone Cardiothoracic Chong, [place], [place] 10/09/2019 Telephone Cardiothoracic Janice, Post-radiatio n pneumonitis (HCC) (Primary Dx); Surgery Candy Gaytan NP Lung mass; Personal histor y of other malignant neoplasm of bronchus and lung; History of lung cancer 10/04/2019 Anesthesia Event Cardiothoracic Maldonado, Surgery Michaelle Case MD Tabladimeliton Alena 10/04/2019 Surgery Cardiothoracic Stephan Weir FLEXIBLE BRON CHOSCOPY Surgery MD Jose WITH LAVAGE 10/04/2019 Hospital Encounter Cardiothoracic Stephan Weir Other n onspecific abnormal finding of lung field; Surgery MD Jose Personal histor y of other malignant neoplasm of bronchus and lung 10/04/2019 Hospital Encounter Radiology Stephan Weir Lung mass ; MD Jose History of lung cancer; Pre-op testing 10/03/2019 [place] 10/02/2019 Office Visit Cardiothoracic Stephan Weir Lung mass (Pr imary Dx); Surgery MD Jose History of lung cancer; Pre-op testing 10/01/2019 Telephone Cardiothoracic Chong, [place], [place] 09/20/2019 Hospital Encounter Radiology Mac Malignant neoplasm [...] (HCC) 06/29/2019 Hospital Encounter Radiology Melvina Soria Facet d egeneration of MD Rosina lumbosacral reg ion after 06/18/2019 Surgical History Surgery Date Site/Laterality Comments TOTAL KNEE ARTHROPLASTY 09/05/2013 - Left 09/04/2014 TONSILLECTOMY childhood CHOLECYSTECTOMY 09/05/2007 - w/ appendectomy 09/04/2008 APPENDECTOMY 09/05/2007 - 09/04/2008 HYSTERECTOMY 09/05/2002 - 09/04/2003 ESOPHAGEAL DILATION last one 201 3 INGUINAL HERNIA REPAIR 09/05/2012 - Bilateral 09/04/2013 THYROIDECTOMY, PARTIAL 09/05/2009 - nodule 09/04/2010 CORNEAL TRANSPLANT x4 ORIF, FRACTURE, RADIUS OR 07/20/2016 Arm Lower/Left Proced ure: ORIF, DISTAL ULNA RADIUS ; Surgeo n: Tamika Gomes MD; L ocation: [facility] OR; Service: Orthopedics; La terality: Left; BRONCHOSCOPY 04/13/2018 N/A Procedure: FLEXI BLE BRONCHOSCOPY; S urgeon: Milena Tran; Location: [facility] OR; Service: Thorac ic; Laterality: N/A; EGD, INTRAOPERATIVE 04/13/2018 N/A Procedure: W / EBUS; Surgeon: Stephan Weir MD; Location: [facility] OR; Ser vice: Thoracic; Later ality: N/A; BRONCHOSCOPY 04/21/2018 N/A Procedure: FLEXI BLE BRONSCOPY; Surg jean carlos: Stephan Weir MD; Location: [facility] OR; Service: Thoracic; Later ality: N/A; Medical devices from this surgery are in t he Implants section . LOBECTOMY, LUNG, 04/21/2018 Chest/N/A Procedure: RIGH T ROBOTIC ROBOT-ASSISTED, ASSISTED THORACO SCOPIC THORACOSCOPIC RIGHT UPPER LOBE LOBECTOMY, MEDIA STINAL LYMPH NODE DISSE CTION; Surgeon: Stephan Weir MD; Location: [facility] OR; Ser vice: Thoracic; Later ality: N/A; Medical devices from this surgery are in t he Implants section . INSERTION OR REVISION, 06/09/2018 Abdomen/N/A Procedure : PLACEMENT OF BACLOFEN OR MORPHINE PUMP PAIN P UMP SYSTEM; Surgeon: Travon landry MD; Location: [facility] OR; Service: Neurosu rgery; Laterality: N/A; Medical devices from this surgery are in t he Implants section . BRONCHOSCOPY 12/08/2018 - N/A Procedure: [facility]; 12/09/2018 Surgeon: Osman Correa MD; Location: [facility] Bronchoscopy; S ervice: Pulmonary; Late rality: N/A; INSERTION, PUMP, TRIAL, FOR PAIN BRONCHOSCOPY 10/04/2019 N/A Procedure: FLEXI BLE BRONCHOSCOPY WIT H LAVAGE; Surgeon: Milena Weir MD; Location: [facility] OR; Service: oracic; Laterality: N/A; BRONCHOSCOPY, USING 10/04/2019 Chest/N/A Procedure: V PENNY ELECTROMAGNETIC NAVIGATION NAVIG ATIONAL BRONCHOSCOPY WITH BIOPSY; S urgeon: Stephan Weir MD; Location: [facility] OR; Service: Thoraci c; Laterality: N/A; DENTAL SURGERY Medical History Medical History Date Comments Hypertension Disease of thyroid gland Arthritis RA (rheumatoid arthritis) (HCC) Non-STEMI (non-ST elevated myocardial infarction) 07/03/2016 (HCC) Depression Hypothyroidism Haque esophagus Migraines Herpes left eye Angina pectoris (HCC) 07/03/2016 History of transfusion 2013 TMJ dysfunction Anesthesia NHAP;NFHAP Corneal transplant failure x4 Cancer (HCC) Stage 4 Bilateral Maria ng Asthma Pericarditis Family History Medical History Relation Name Comments [...] Assigned at Date Recorded Not on file COVID-19 Exposure Response Date Recorded In the last month, have you been in contact with No / Unsure 06/18/2020 4:09 PM CDT someone who was confirmed or suspected to have Coronavirus / COVID-19? Last Filed Vital Signs Vital Sign Reading Time Taken Comments Blood Pressure 113/76 10/30/2019 12:54 PM [employer] Pulse 91 10/30/2019 12:54 PM [employer] Temperature 35.9 C (96.7 F) 05/07/2020 1:18 PM CDT Respiratory Rate 17 10/30/2019 12:54 PM [employer] Oxygen Saturation 97% 10/30/2019 12:54 PM [employer] Inhaled Oxygen Concentration - - Weight 109 kg (241 lb) 05/07/2020 1:18 PM CDT Height 157.5 cm (5' 2") 10/30/2019 12:54 PM [employer] Body Mass Index 44.08 10/30/2019 12:54 PM [employer] Plan of Treatment Date Type Specialty Care Team Description 07/07/2020 Appointment Radiology Jakob Carrera MD [address] [place], [place] [address] [phone] 07/07/2020 Office Visit Oncology Jakob Carrera MD [address] [address] [phone] 07/08/2020 Telemedicine Cardiothoracic Surgery Stephan Weir MD [address] [facility] [address] [place], [place] [address] [phone] Health Maintenance Due Date Last Done Comments BREAST CANCER SCREENING 2013 COLONOSCOPY SCREENING 2013 SHINGLES VACCINES (#1) 2013 INFLUENZA VACCINE 04/05/2020 CERVICAL CANCER SCREENING 10/04/2022 10/04/2019, 10/04/2019 , 10/04/2019, Additional history exists Implants Implanted Type Area Tunnel Man Device Shelf Model / Identifier Expiration Serial / Date Lot Port Injctbl Smart Port Ct W/ [facility]d [facility] Cath 8fr - [id number] Implantable N/A: [employer] 01/02/2021 [id number] / Implanted: 06/12/2018 at [facility] (Quantity not on file) Inf usion Ports N/A / or Accessories [id number] 26 Pump Infsn Synchromed Ii W/ Fltr Sut Loop Prgrmbl Rsvr 20ml - [id number] Neurosurgical N/A: [employer] 10/19/2019 [id number] / Implanted: Qty: 1 on 06/09/2018 by Travon Grace MD at [facility] [place] Implants N/A NEUROMODULATION / [id number] Description:Hospital-owned Pain Mgmt Pain Mgmt Implantable Devices Implantable Devices Ports Cath Ports Passer Intrathcl Cath Rp Tip Obtrtr 38cm - [id number] Surgical N/A: [employer] [place] - [id number] / Implanted: Qty: 1 on 06/09/2018 by Travon Grace MD at [facility] Implantable Shunts N/A NEUROLOGICAL 019 / or Shunt Extenders N [id number] Kit Selnt Fibrin [facility] Surgy 5ml Evicel - [id number] Morales rgical Implants; N/A: ETHICON US-EH [id number] / Implanted: Qty: 1 on 04/21/2018 by Stephan Weir MD at [facility] Expanders; N/A 019 / Extenders; Surgical [id number] Wires Closure Wnd Tiss Rpr Sys - [id number] Surgical Implants; N/A: [employer] XC 201 01 / Implanted: Qty: 1 on 06/09/2018 by Travon Grace MD at [facility] Expanders; N/A INC 022 / Extenders; Surgical [id number] Wires Procedures Procedure Name Priority Date/Time Associated Diagnosis Comme nts COVID-19 QUALITATIVE Routine 05/07/2020 2:16 Bilateral lung c ancer Results for this PCR PM CDT ([facility]) procedure are in Cough the results section. ESTIMATED GFR Routine 05/07/2020 11:40 Results fo r this AM CDT procedure are i n the results section. SEDIMENTATION RATE Routine 05/07/2020 11:40 Thrombocytopenia ( HCC) Results for this AM CDT procedure are i n the results section. HC COMPLETE BLD COUNT Routine 05/07/2020 11:40 Bilateral lung cancer Results for this W/AUTO DIFF AM CDT ([facility]) procedure are i n the results section. COMPREHENSIVE Routine 05/07/2020 11:40 Bilateral lung cancer R esults for this METABOLIC PANEL AM CDT ([facility]) procedure ar e in the results section. PET CT SKULL BASE TO Routine 05/07/2020 11:18 Bilateral lung c ancer Results for this MID THIGH AM CDT ([facility]) procedure are i n the results section. POC GLUCOSE Routine 05/07/2020 10:10 Results for this AM CDT procedure are i n the results section. XR KNEE 4+ VW RIGHT Routine 03/14/2020 1:57 Acute pain of rig ht Results for this PM CDT knee procedure are i n the results section. PET CT SKULL BASE TO Routine 02/05/2020 11:28 Bilateral lung c ancer Results for this MID THIGH AM CDT (HCC) procedure are i n the results section. POC GLUCOSE Routine 02/05/2020 10:08 Results for this AM CDT procedure are i n the results section. MRI LUMBAR SPINE WO Routine 01/25/2020 10:46 Radiculopathy, maria mbar Results for this CONTRAST AM CDT region procedure are i n the results section. MRI THORACIC SPINE WO Routine 01/25/2020 10:44 Pain in thoraci c spine Results for this CONTRAST AM CDT procedure are i n the [...] EXTERNAL Routine 12/17/[address] HEAD EXTERNAL Routine 12/07/2019 3:46 Results for this STUDY PM CDT procedure are i n the results section. XR CHEST EXTERNAL Routine 12/07/2019 12:14 Result s for this STUDY AM CDT procedure are i n the results section. CARDIAC PET Routine 12/07/[address] HEAD EXTERNAL Routine 12/07/2019 STUDY XR CHEST 2 VW Routine 12/06/2019 CT CHEST WO CONTRAST Routine 10/30/2019 11:00 Lung mass Results for this AM [employer] History of lung cancer proce dure are in the results section. XR CHEST 1 VW STAT 10/04/2019 12:05 Results fo r this PORTABLE PM [employer] procedure are i n the results section. RESPIRATORY PATHOGEN Timed 10/04/2019 10:58 Res ults for this PANEL AM [employer] procedure are i n the results section. GRAM STAIN Timed 10/04/2019 10:58 Results for this AM [employer] procedure are i n the results section. AFB STAIN Timed 10/04/2019 10:58 Results for this AM [employer] procedure are i n the results section. FUNGUS SMEAR Timed 10/04/2019 10:58 Results for this AM [employer] procedure are i n the results section. RESPIRATORY CULTURE Timed 10/04/2019 10:58 Other nonspecific Results for this AM [employer] abnormal finding of procedur e are in lung field the results Personal history of section. other malignant neoplasm of bronchus and lung NOCARDIA CULTURE Timed 10/04/2019 10:58 Other nonspecific Re sults for this AM [employer] abnormal finding of procedur e are in lung field the results Personal history of section. other malignant neoplasm of bronchus and lung LEGIONELLA CULTURE Timed 10/04/2019 10:58 Other nonspecific Results for this AM [employer] abnormal finding of procedur e are in lung field the results Personal history of section. other malignant neoplasm of bronchus and lung FUNGUS CULTURE Timed 10/04/2019 10:58 Other nonspecific Resu lts for this AM [employer] abnormal finding of procedur e are in lung field the results Personal history of section. other malignant neoplasm of bronchus and lung CYTOLOGY Routine 10/04/2019 10:57 Results for this (NON-GYNECOLOGICAL) AM [employer] procedur e are in REQUEST the results section. [place] AN ELECTIVE Routine 10/04/2019 10:16 Results f or this ENDOTRACHEAL AIRWAY AM [employer] procedur e are in the results section. CYTOLOGY Routine 10/04/2019 10:15 Results for this (NON-GYNECOLOGICAL) AM [employer] procedur e are in REQUEST the results section. CYTOLOGY Routine 10/04/2019 10:15 Results for this (NON-GYNECOLOGICAL) AM [employer] procedur e are in REQUEST the results section. AFB CULTURE Timed 10/04/2019 9:58 Other nonspecific Result s for this AM [employer] abnormal finding of procedur e are in lung field the results Personal history of section. other malignant neoplasm of bronchus and lung CT CHEST WO CONTRAST Routine 10/04/2019 8:31 Lung mass Results for this AM [employer] History of lung cancer procedure are in Pre-op testing the results section. PARTIAL Routine 10/02/2019 11:56 Lung mass Results for this THROMBOPLASTIN TIME AM [employer] History of l ian cancer procedure are in (PTT) Pre-op testing the results section. PROTHROMBIN TIME WITH Routine 10/02/2019 11:56 Lung mass Results for this INR AM [employer] History of lung cancer procedure are in Pre-op testing the results section. COMPREHENSIVE Routine 10/02/2019 11:56 Lung mass Results for this METABOLIC PANEL AM [employer] History of lung cancer procedure are in Pre-op testing the results section. CBC WITH PLATELET AND Routine 10/02/2019 11:56 Lung mass Results for this DIFFERENTIAL AM [employer] History of lung cancer procedure are in Pre-op testing the results section. CT CHEST WO CONTRAST Routine 09/20/2019 12:19 Malignant neopla sm of Results for this PM [employer] bronchus and lung (HCC) proc edure are in the results section. PET CT SKULL BASE TO Routine 07/16/2019 10:38 Bilateral lung c ancer Results for this MID THIGH AM [employer] (HCC) procedure are i n the results section. POC GLUCOSE Routine 07/16/2019 9:23 Results for this AM [employer] procedure are i n the results section. MRI LUMBAR SPINE WO Routine 06/29/2019 10:30 Facet degeneratio n of Results for this CONTRAST AM CDT lumbosacral region procedure are in the results section. after 06/18/2019 Results COVID-19 qualitative PCR (05/07/2020 2:16 PM CDT) Interpretation Negative results do not prec lude 2019-nCoV infection and should not be used as the sole basis for treatment or other patient management decisions. Negative results must be combined with clinical observations, patient history, and epidemiological ROSS information. [facility] COVID-19 qualitative Not-Detected Not-Detecte [facility]D PCR result d [facility] COVID-19 qualitative See link below for [facility] PCR PDF Lab CHRISTIAN ReportComment: Case HOSPITAL Number: [id number] Specimen Nasopharyngeal swab Performing Organization Address City/State/ZIP Code Phon e Number [facility] DEPARTMENT OF PATHOLOGY AND [address] [place], [place] [address] GENOMIC MEDICINE [facility] [address] [place] [address] [facility] Estimated GFR (05/07/2020 11:40 AM CDT) Estimated GFR 29 (A) mL/min/1.73 [facility] Comment: m2 HOSPITAL Catergory Units Interpretation G1 >=90 Normal [...] lity Initiative (NKF-KDOQI) published in 2014. Specimen Performing Organization Address City/State/ZIP Code Phon e Number [facility] DEPARTMENT OF PATHOLOGY AND [address] [place] [address] [phone] [address] Sedimentation rate (05/07/2020 11:40 AM CDT) Pathologist Sig nature Sedimentation rate 47 (H) 0 - 20 mm/hr [facility] Specimen Blood Performing Organization Address City/[facility] Phon e Number [facility] DEPARTMENT OF PATHOLOGY AND [address] [place] [address] 0 [place] [phone] CBC with platelet and differential (05/07/2020 11:40 AM CDT)Only the most recent of2 resultswithin the time period is included. WBC 6.67 4.50 - 11.00 [facility] k/uL HOSPITAL RBC 3.56 (L) 4.20 - 5.50 [facility] m/uL HOSPITAL HGB 11.0 (L) 12.0 - 16.0 [facility] g/dL [facility] HCT 34.5 (L) 37.0 - 47.0 % [facility] MCV 96.9 82.0 - 100.0 [facility] MCH 30.9 27.0 - 34.0 pg [facility] MCHC 31.9 31.0 - 37.0 [facility] RDW - SD 44.0 37.0 - 55.0 fL [facility] MPV 9.8 8.8 - 13.2 fL [facility] Platelet count 179 150 - 400 k/uL [facility] Nucleated RBC 0.00 /100 WBC [facility] Neutrophils 63.9 39.0 - 69.0 % [facility] Lymphocytes 24.1 (L) 25.0 - 45.0 % [facility] Monocytes 9.7 0.0 - 10.0 % [facility] Eosinophils 1.6 0.0 - 5.0 % [facility] Basophils 0.1 0.0 - 1.0 % [facility] Immature granulocytes 0.6Comment: 0.0 - 1.0 % [facility] "Immature HOSPITAL granulocytes" (promyelocytes , myelocytes, metamyelocytes ) Specimen Blood Performing Organization Address City/[facility] Phon e Number [facility] DEPARTMENT OF PATHOLOGY AND [address] [place] [phone] GENOMIC MEDICINE [address] [address] Comprehensive metabolic panel (05/07/2020 11:40 AM CDT)Only the most recent of2 resultswithin the time period is included. Sodium 143 135 - 148 [facility] mEq/L [facility] Potassium 4.5 3.5 - 5.0 [facility] mEq/L [facility] Chloride 101 98 - 112 [facility] mEq/L [facility] CO2 29 24 - 31 mEq/L [facility] Anion gap 13@ANIO 7 - 15 mEq/L [facility] BUN 32 (H) 6 - 20 mg/dL [facility] Creatinine 1.90 (H) 0.50 - 0.90 [facility] mg/dL HOSPITAL Glucose 93 65 - 99 mg/dL [facility] Calcium 9.1 8.3 - 10.2 [facility] mg/dL [facility] Protein 6.9 6.3 - 8.3 [facility] Comment: g/dL [facility] [place] 4.6-7.0 g/dL 1 week 4.4-7.6 g/dL 7 months-1year 5.1-7.3 g/dL 1-2 years 5.6-7.5 g/dL >3 years 6.0-8.0 g/dL 18-150 6.3-8.3 g/dL Albumin 3.4 (L) 3.5 - 5.0 [facility] g/dL HOSPITAL A/G ratio 1.0 0.7 - 3.8 [facility] Alkaline phosphatase 84 35 - 104 U/L [facility] AST 16 10 - 35 U/L [facility] ALT 14 5 - 50 U/L [facility] Total bilirubin <0.2 0.0 - 1.2 [facility] mg/dL HOSPITAL Specimen Blood Performing Organization Address City/[facility] Phon e Number [facility] DEPARTMENT OF PATHOLOGY AND [address] [place] [phone] GENOMIC MEDICINE [facility] [address] [place] [address] PET/CT Skull Base To Mid Thigh (05/07/2020 11:18 AM CDT)Only the most recent of3 resultswithin the time period is included. Specimen Narrative Performed At EXAMINATION: PET CT SKULL BASE TO MID THIGH [facility] CLINICAL HISTORY: C34.91 Malignant neoplasm of unspeci fied part of right bronchus or lung, C34.92 Malignant neoplasm of unspeci fied part of left bronchus or lung, lung ca ; RESTAGING COMPARISON: PET/CT 02/05/2020, No other more recent imaging TECHNIQUE: The patient received 10-15 mCi 18-FDG intra venously. 1 hour later, PET/CT scanning from the orbits to the mid thig hs was performed. CT scanning was nondiagnostic and used for attenuation correction purposes and to aid in localization of a ny abnormal findings on the PET images. Automated dose ex posure control was utilized. Blood glucose = 83. FINDINGS: Head and Neck There is no suspicious lymph node uptake and no eviden ce of malignancy in the brain. Chest Residual linear consolidation in the left apex from wh at was once a much larger consolidation, with mild uptake, not significan tly changed from prior (SUV = 3.1, previously 2.7). However, if the ant erior/inferior aspect of this is a new 3 cm lobulated opacity that may represent focal consolidation with mo derate uptake (SUV = 5.3). Just anterolateral to the linear consolidation is a new 2.1 cm ill-defined opacity with mild uptake (SUV = 3.2). A sm all, ill-defined, inflammatory-appearing opacity in the medial superior segment of the left lower lobe has an SUV of 2.9. No suspicious uptake in the: mediastinum, h rené, axillae. Abdomen Uptake is normal in the: liver, spleen, adrenal glan ds, pancreas, kidneys, stomach. There is no suspicious retroperitone al or mesenteric lymph node uptake. Pelvis There is no suspicious pelvic or inguina l lymph node uptake. Osseous Structures There is no suspicious osseous uptake. IMPRESSION: 1.New opacities with mild uptake in the anterior left apex and left lower lobe are most likely inflammatory (infectious or noninfectious). However, malignancy cannot completely be excluded in t he apex and short-term follow-up with CT or PET/CT i n approximately 2 months is recommended. 2.Stable, linear, residual consolidation in the left upper lobe. [facility]-[id number] Procedure Note Hm Interface, Radiology Results Incoming - 05/07/2020 12:18 PM CDT EXAMINATION: PET CT SKULL BASE TO MID THIGH CLINICAL HISTORY: C34.91 Malignant neopl asm of unspecified part of right bronchus or lung, C34.92 Malignant neoplasm of unspecified part of left bronchus or lung, lung ca ; RESTAGING COMPARISON: PET/CT 02/05/2020, No other m ore recent imaging TECHNIQUE: The patient received 10-15 mC i 18-FDG intravenously. 1 hour later, PET/CT scanning from the orbits to the mid thighs was performed. CT scanning was nondiagnostic and used for attenuation correction purposes and to aid in localization of any abnormal findings on the PET images. Aut omated dose exposure control was utilized. Blood glucose = 83. FINDINGS: Head and Neck There is no suspicious lymph node uptake and no evidence of malignancy in the brain. Chest Residual linear consolidation in the lef t apex from what was once a much larger consolidation, with mild uptake, not significantly changed from prior (SUV = 3.1, previously 2.7). However, if the anterior/inferior aspect of this is a new 3 cm lobulated opacity that may represent focal consoli dation with moderate uptake (SUV = 5.3). Just anterolateral to the linear consolidation is a new 2.1 cm ill-defined opacity with mild uptake (SUV = 3.2). A small, ill-defined, inflammatory-appearing opacity in the medial superior segment of the left lowe r lobe has an SUV of 2.9. No suspicious uptake in the: mediastinum, debbi, axillae. Abdomen Uptake is normal in the: liver, spleen, adrenal glands, pancreas, kidneys, stomach. There is no suspicious retroperitoneal or mesenteric lymph node uptake. Pelvis There is no suspicious pelvic or inguina l lymph node uptake. Osseous Structures There is no suspicious osseous uptake. IMPRESSION: 1.New opacities with mild uptake in the anterior left apex and left lower lobe are most likely inflammatory (infectious or noninfectious). However, malignancy cannot completely be excluded in the apex and short-term follow-up with CT or PET/CT in approximately 2 months is recommended. 2.Stable, linear, residual consolidation in the left upper lobe. [facility]-[id number] Performing Organization Address City/[facility]/ZIP Code Phon e Number [facility] [address] [place] [address] POC glucose (05/07/2020 10:10 AM CDT)Only the most recent of3 resultswithin the time period is included. Pathologist Sig nature POC glucose 83 65 - 99 mg/dL [facility] Comment: HOSPITAL Physician General Practice Name: García Garrett Device ID: [id number] Chartable: No Action Needed Specimen Blood Performing Organization Address City/[facility]/ZIP Code Phon e Number [facility] DEPARTMENT OF PATHOLOGY AND [address] [place] [phone] GENOMIC MEDICINE [address] [address] XR Knee 4+ Vw Right (03/14/2020 1:57 PM CDT) Specimen Narrative Performed At This result has an attachment that is no t available. 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 Specimen Narrative Performed At [facility] EXAM: MRI LUMBAR SPINE WO CONTRAST COMPARISON: [...] degenerative anterolisthesis at L 4-5 without spondylolysis. [facility]-[id number] Procedure Note Hm Interface, Radiology Results Incoming - 01/25/2020 12:35 [...] degenerative anterolisthesis at L 4-5 without spondylolysis. [facility]-[id number] Performing Organization Address City/State/ZIP Code Phon e Number [facility] [address] [place] [address] MRI Thoracic Spine Wo Contrast (01/25/2020 10:44 AM CDT) Specimen Narrative Performed At EXAMINATION: MRI THORACIC SPINE WO CONTR AST [facility] CLINICAL HISTORY: M54.6 Pain in thoracic [...] severe left neural foraminal narrowing at T8-T9. [id number] Procedure Note Interface, Radiology Results Incoming - [...] severe left neural foraminal narrowing at T8-T9. [id number] Performing Organization Address City/State/ZIP Code Phon e Number [facility] [address] [facility] [place] [address] MRI Cervical Spine Wo Contrast (01/25/2020 9:22 [...] stenosis identified. No acute osseous abnormalities appreciated. [id number] Procedure Note Hm Interface, Radiology Results - [...] stenosis identified. No acute osseous abnormalities appreciated. [facility]-[id number] Performing Organization Address City/State/ZIP Code Phon e Number [facility] [address] [place] [address] XR Chest 2 Vw (12/19/2019)Only the most [...] Methodis t facility and has not been HM [facility] interpreted by a [facility] Provider. T he exam was imported into our imaging system. Performing Organization Address City/[facility]/ZIP Code Phon e Number [facility] [address] [place] [address] CT Chest External Study (12/17/2019 3:51 AM CDT)Only the most recent of2 resultswithin the time period is included. Specimen Narrative Performed At This exam was not acquired at a Methodis t facility and has not been [facility] interpreted by a [facility] Provider. T he exam was imported into our imaging system. Performing Organization Address [facility] Code Phon e Number [facility] [address] [place] [address] CT Head External Study (12/07/2019 3:46 PM CDT)Only the most recent of2 results within the time period is included. Specimen Narrative Performed At This exam was not acquired at a Methodis t facility and has not been [facility] interpreted by a [facility] Provider. T he exam was imported into our imaging system. Performing Organization Address [facility] Phon e Number [facility] [address] [place] [address] CV Cardiac PET Myocardial Perfusion Imaging (12/07/2019) Narrative Performed At This result has an attachment that is no t available. CT Chest Wo Contrast (10/30/2019 11:00 AM SUPERVISOR [employer]PERATIONS)Only the most recent of3 results within the time period is included. Specimen Narrative Performed At EXAMINATION: [facility] CT CHEST WO CONTRAST CLINICAL HISTORY: R91.8 Other nonspecific abnormal finding of lung field , Z85.118 Personal history of other malignant neoplasm of bronchus and maria ng, lung mass personal history lung cancer [...] unchanged significantly fro m July 26, 2018.. [id number] Procedure Note Hm Interface, Radiology Results Incoming - 10/30/2019 1:42 PM SUPERVISOR [employer]PERATIONS EXAMINATION: CT CHEST WO CONTRAST CLINICAL HISTORY: [...] bases unchanged significantly from July 26, 2018.. [id number] Performing Organization Address [facility] Phon e Number [facility] [address] [place] [address] XR Chest 1 Vw Portable (10/04/2019 12:05 PM [employer]PERATIONS) Specimen Narrative Performed At EXAMINATION: XR CHEST [...] the SVC. Old right rib fracture deformities. [facility]-[id number] Procedure Note Interface, Radiology Results Incoming - 10/04/2019 12:25 PM SUPERVISOR [employer]PERATIONS EXAMINATION: XR CHEST 1 VW PORTABLE INDICATION: [...] the SVC. Old right rib fracture deformities. [facility]-[id number] Performing Organization Address City/State/ZIP Code Phon e Number [facility] [address] [place] [address] Respiratory culture (10/04/2019 10:58 AM SUPERVISOR [employer]PERATIONS) Respiratory culture Normal oral mic isolated. MANDI Bowser [facility] isolate Comment: HOSPITAL Specimen Information Specimen Source: Bronchial alveolar lavage Specimen Site: Lung: KOJO BAL Specimen Bronchial alveolar lavage - Lung Performing Organization Address City/[facility]/ZIP [facility] Phon e Number [facility] DEPARTMENT OF PATHOLOGY AND [address] [place] [address] [phone] [address] Fungus smear (10/04/2019 10:58 AM SUPERVISOR [employer]PERATIONS) Pathologist Sig nature Fungus smear No fungi observed. [facility] Comment: HOSPITAL Specimen Information Specimen Source: Bronchial alveolar lavage Specimen Site: Lung: KOJO BAL Specimen Bronchial alveolar lavage Performing Organization Address [facility] Phon e Number [facility] DEPARTMENT OF PATHOLOGY AND [address] [place] [address] [phone] [address] Respiratory pathogen panel (10/04/2019 10:58 AM SUPERVISOR [employer]PERATIONS) Respiratory Negative for all pathogens tested: MANDI Bowser pathogen panel Negative for Adenovirus [facility]RISTIAN Negative for Coronavirus HKU1 [facility] Negative for Coronavirus NL63 Negative for [...] Specimen Bronchial alveolar lavage Performing Organization Address City/[facility] Phon e Number [facility] DEPARTMENT OF PATHOLOGY AND [address] [place] [address] [phone] [address] Nocardia culture (10/04/2019 10:58 AM SUPERVISOR OPERATIONS) Nocardia culture No Nocardia isolated after 7 days. [facility] isolate Comment: HOSPITAL Specimen Information Specimen Source: Bronchial alveolar lavage Specimen Site: Lung: KOJO BAL Specimen Bronchial alveolar lavage - Lung Performing Organization Address City/[facility]/ZIP Code Phon e Number [facility] DEPARTMENT OF PATHOLOGY AND [address] [place] [address] [place] [address] Legionella culture (10/04/2019 10:58 AM SUPERVISOR OPERATIONS) Legionella culture No Legionella isolated. [facility] isolate No Legionella isolated. HOSPITAL Comment: Specimen Information Specimen Source: Bronchial alveolar lavage Specimen Site: Lung: KOJO BAL Specimen Bronchial alveolar lavage - Lung Performing Organization Address City/[facility] Phon e Number [facility] DEPARTMENT OF PATHOLOGY AND [address] [place] [address] [place] [phone] Gram stain (10/04/2019 10:58 AM SUPERVISOR OPERATIONS) Gram stain isolate Rare WBC's [facility] No organisms seen HOSPITAL Comment: Specimen Information Specimen Source: Bronchial alveolar lavage Specimen Site: Lung: KOJO BAL Specimen Bronchial alveolar lavage Performing Organization Address City/[facility] Phon e Number [facility] DEPARTMENT OF PATHOLOGY AND [address] [place] [address] [phone] [address] AFB stain (10/04/2019 10:58 AM SUPERVISOR [employer]PERATIONS) Pathologist Sig nature AFB stain No acid fast bacilli (AFB) seen. [facility] Comment: HOSPITAL Specimen Information Specimen Source: Bronchial alveolar lavage Specimen Site: Lung: KOJO BAL Specimen Bronchial alveolar lavage Performing Organization Address City/[facility]/ZIP [facility] Ph[place] e Number [facility] DEPARTMENT OF PATHOLOGY AND [address] [place] [address] [phone] [address] Fungus culture (10/04/2019 10:58 AM SUPERVISOR OPERATIONS) Fungus culture No growth after 4 weeks of incubation. [facility] isolate Comment: HOSPITAL Specimen Information Specimen Source: Bronchial alveolar lavage Specimen Site: Lung: KOJO BAL Specimen Bronchial alveolar lavage - Lung Performing Organization Address City/State/ZIP Code Phon e Number [facility] DEPARTMENT OF PATHOLOGY AND [address] [place] [address] [phone] GENOMIC MEDICINE [facility] [address] [place] [address] Cytology (non-gynecological) request (10/04/2019 10:57 AM SUPERVISOR [employer]PERATIONS)Only the most recent of3 resultswithin the time period is included. [facility] DEPARTMENT OF PATHOLOGY AND GENOMIC MEDICINE Cytology See link below [facility] DEPARTMENT OF (non-gynecological) for PDF Lab PATHOLOGY AND report Report GENOMIC MEDICINE Result status This is Final [facility] DEPARTMENT OF Report for PATHOLOGY AND [id number] GENOMIC MEDICINE Specimen Performing Organization Address City/[facility] Code Phon e Number [facility] DEPARTMENT OF PATHOLOGY AND [address] [place] [phone] GENOMIC MEDICINE Airway (10/04/2019 10:16 AM SUPERVISOR [employer]PERATIONS) Narrative Performed At Michaelle Maldonado MD 10:53 AM Airway Performed by: Michaelle Maldonado MD Authorized by: Michaelle Maldonado MD Location: OR Urgency: Elective Difficult Airway: No Anesthesiologist: Michaelle Maldonado MD Resident/SENIOR FRONT END DEVELOPER/AA: Rufino Jennings CRNA Other Anesthesia Staff: Preston [...] or oropharynx. AFB culture (10/04/2019 9:58 AM SUPERVISOR [employer]PERATIONS) AFB culture No growth after 6 weeks of incubation. [facility] isolate Comment: HOSPITAL Specimen Information Specimen Source: Bronchial alveolar lavage Specimen Site: Lung: KOJO BAL Specimen Bronchial alveolar lavage - Lung Performing Organization Address City/[facility]/ZIP Code Phon e Number [facility] DEPARTMENT OF PATHOLOGY AND [address] [place], [place] [phone] GENOMIC MEDICINE [facility] [address] [place] [address] Partial thromboplastin time, activated (10/02/2019 11:56 AM SUPERVISOR [employer]PERATIONS) Pathologist Sig nature aPTT 31 24 - 33 sec [facility] Comment: This test has not been validated for monitoring unfrac tionated heparin therapy. aPTT-based therapeutic ranges for unfractiona evelin heparin therapy have not been established. For general guideli krys on Heparin monitoring, refer to the [facility] Directory of Services. Specimen Blood Narrative Performed At [facility]formed at: [facility] [address] [place], [place] [address] [address] Bark Grinder: Felipe Schmid MD, Phone: [phone] Performing Organization Address [facility] Phon e Number [facility] Prothrombin time with INR (10/02/2019 11:56 AM SUPERVISOR OPERATIONS) INR 1.0 0.8 - 1.2 [facility] Comment: Reference interval is for non-anticoagulated patients. Suggested INR therapeutic range for Vitamin K antagonist therapy: Standard Dose (moderate intensity therapeutic range): 2.0 - 3.0 Higher intensity therapeutic range 2.5 - 3.5 Prothrombin time 10.5 9.1 - 12.0 sec [facility] Specimen Blood Narrative Performed At Performed at: [facility] [address] [place], [place] [address] [address] Bark Grinder: Felipe Schmid MD, Phone: [phone] Performing Organization Address [facility] Phon e Number [facility] after 06/18/2019 Insurance Payer Benefit Plan / Subscriber ID Effective Dates Phone Addre ss Type Group MEDICARE MEDICARE PART A [id number] 2013-Present [facility] [place] [facility] [place] B Advance Directives For more information, please contact: [phone] Type Date Recorded Patient Computer Numerical Control Grinder Explanati on Advance Directives, 06/26/2018 9:38 AM Living Will and Medical Power of Knitting Teacher Advance Directives, 02/22/2019 8:49 AM ADV 12-28-2018 Living Will and Medical Power of Knitting Teacher Advance Directives, 02/22/2019 8:49 AM POA 0 12-28-2018 Living Will and Medical Power of Knitting Teacher Advance Directives, 02/27/2019 9:03 AM ADV 0 12-28-2018 Living Will and Medical Power of Knitting Teacher Advance Directives, 02/27/2019 9:03 AM POA 0 12-28-2018 Living Will and Medical Power of Knitting Teacher Code Status Date Activated Date Inactivated Comments [...]
--- OUTSIDE RECORDS SUMMARY | 2020-06-18 16:48 | XMS REPORT | Clinical Summary ---
:1965 Author Organization [facility] Address [address] [place] [address] Care Team Providers Name Role Phone Unavailable [...] DALLAS Easley MD PUMP 10/09/2019 Anesthesia Event Felipe Harvey MD Her, Keon Quintanilla, REAL ESTATE CLERK 10/09/2019 Hospital Encounter Flako, Pre-op te sting MD [facility] 10/08/2019 Hospital Encounter Pre-Admission Testing 10/08/2019 Orders Only Neurosurgery Flako, Pre-op testing MD [facility]hal (Primary Dx) 10/08/2019 Orders Only Neurosurgery [facility] Arriola MD after 06/18/2019 Social History Tobacco Use Types Packs/Day Years [...] Assigned at Date Recorded Not on file Last Filed Vital Signs Vital Sign Reading Time Taken Comments Blood Pressure 97/56 10/09/2019 11:25 AM CASINO DEALER Pulse 61 10/09/2019 11:25 AM CASINO DEALER Temperature 36.4 C (97.6 F) 10/09/2019 11:25 AM CASINO DEALER Respiratory Rate 18 10/09/2019 11:25 AM CASINO DEALER Oxygen Saturation 96% 10/09/2019 11:25 AM [employer]INO DEALER Inhaled Oxygen Concentration - - Weight 104.2 kg (229 lb 11.5 oz) 10/09/2019 6:15 AM CASINO DEALER Height 160 cm (5' 3") 10/09/2019 6:15 AM CASINO DEALER Body Mass Index 40.69 10/09/2019 6:15 AM CASINO DEALER Plan of Treatment Not on file Procedures Procedure Name Priority Date/Time Associated Diagnosis Comme nts RHYTHM STRIP - SCAN 10/16/2019 12:42 PM CASINO DEALER FL FLUORO Routine 10/09/2019 7:37 AM Results for this NON-SPECIFIC UP TO CASINO DEALER procedure are in 1 HOUR the results section. PROCEDURE W/ C-ARM 10/09/2019 6:44 AM Malfunction of CASINO DEALER intrathecal infusion pump, initial encounter Chronic pain disorder Case Notes 2[facility] Special Needs (C-ARM, [employer]) REVISION,INTRATHECAL PUMP 10/09/2019 6:44 AM CASINO DEALER Malf unction of intrathecal infusion pump, initial encounter Chronic pain disorder Case Notes 2HR Special Needs (C-ARM, [employer]TR[employer]) after 06/18/2019 Results RHYTHM STRIP - SCAN (10/16/2019 12:42 PM CASINO DEALER) Narrative Performed At This result has an attachment that is no t available. FL fluoro non-specific up to 1 hour (10/09/2019 7:37 AM CASINO DEALER) Specimen Narrative Performed At FINAL REPORT [facility] A fluoroscopic unit was utilized for a p rocedure performed in the operating room. No interpretation was re quested. Please refer to the operative report regarding findings. Ple ase refer to PACS for patient radiation dose information. Signed: Jia Linn MD Report Verified Date/Time: 10/09/2019 08:26:53 Reading Location: [facility] Radiol y Reading Room Procedure Note Interface, External Ris In - 10/09/2019 8:29 AM CASINO DEALER FINAL REPORT A fluoroscopic unit was utilized for a p rocedure performed in the operating room. No interpretation was re quested. Please refer to the operative report regarding findings. Ple ase refer to PACS for patient radiation dose information. Signed: Jia Linn MD Report Verified Date/Time: 10/09/2019 0 8:26:53 Reading Location: [facility] Slid[place] y Reading Room Performing Organization Address City/State/Zipcode Phone Number [facility] after 06/18/2019 Advance Directives For more information, please contact: [phone] Code Status Date Activated Date Inactivated Comments Full Code 10/09/2019 5:49 AM 10/09/2019 2:24 PM This code status was determined by: Patient
--- OUTSIDE RECORDS SUMMARY | 2020-06-18 16:50 | XMS REPORT | Continuity of Care Document ---
:1965 Author Organization [facility] t Address [address] [place] [address] Dr. [address]. [address] [place] [address] Care Team Providers Name Role Phone Ashely ORDONEZ Primary Care Physician Deandre ORDONEZ Attending Clinician Zackary ROBLES Attending Clinician Unavailable Chanelle Baum PA-C Attending Clinician Jose Weir MD Attending Clinician Rosina Soria MD Attending Clinician Jasmin ROBLES Attending Clinician Unavailable Faina ORDONEZ Attending Clinician Lucila Camacho NP Attending Clinician Chong ROBLES Attending Clinician Unavailable Flako ORDONEZ Attending Clinician Wes ORDONEZ Attending Clinician Nusrat Her CRNA Attending Clinician [phone] Manpreet Maldonado MD Attending Clinician Andre Attending Clinician Unavailable Torres Watts MD Attending Clinician SARI Attending Clinician Unavailable THEA Admitting Clinician Unavailable SARI Admitting Clinician Unavailable Payers Payer Name Policy Type Policy Effective Date Expiration Date Sour ce Number MEDICAREMEDICARE PART [id number] 2013 [place] Bull AND 00:00:00 [facility] [id number] 2012- [place]ny [place]ARE A [id number] 2013 NAYANA Vásquez EunohjsbXD530/09/2012- 00:00:00 - M edical PresentMedicare Center Problems Condition Condition Condition Status Onset [...] initial encounter encounter Pericardia Pericardia Disease Active 2019 H angelito l effusion l effusion 9-24 Me thodi 00:00: st 00 Ataxia Ataxia Disease Active [place] 6-13 Methodi 00:00: st 00 Intractabl Intractabl Disease Active H angelito e headache e headache 5-29 Me thodi 00:00: st 00 Arthritis Arthritis Disease Active 2017-09 Jay ston 0-10 Methodi 00:00: st 00 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[place] artery artery 0-10 Methodi disease disease 00:00: st involving involving 00 [place] cocopah coronary coronary artery of artery of [place] heart heart without without angina angina pectoris pectoris 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 00:00: n of right of right 00 lung lung Rheumatoid Rheumatoid Disease Active 2018 M D arthritis arthritis 9-28 Stu rso 00:00: n 00 Bilateral Bilateral Disease Active Jay frazier lung lung 8-17 Methodi cancer cancer 00:00: st 00 Distal Distal Disease Active 2015-09 [place] radius radius 1-15 Methodi fracture, fracture, 00:00: st left left 00 Displaced Displaced Disease Active 2015-09 Jay frazier fracture fracture 1-10 Method i of distal of distal 00:00: st end of end of 00 left left radius radius Allergies, Adverse Reactions, Alerts Allergy Allergy Status Severity Reaction(s) Onset Inactive Treating Comm ents Source Name Type Date Date Clinician Adhesive Propensi Active Rash [facility] - adverse 00:00: Medical reaction 00 [place] Celecoxi Propensi Active Swelling 2015-09 H[facility] [...] [facility] - adverse 00:00: Medical reaction 00 [place] Meperidi Propensi Active Hives [facility] 6-18 [facility] - adverse 00:00: Medical reaction 00 [place] Family History Family Member Diagnosis Comments Start Date Stop Date Source Natural brother -Colon cancer And erson Natural brother Cancer [facility] ethodist Natural mother -Breast cancer And sarahy Natural mother -Head and Neck And ersgwendolyn Natural mother Cancer [facility] thodist Natural sister -Thoracic or Lung Rod Natural sister Cancer [facility] thodist Social History Social Habit Start Date Stop Date Quantity Comments Source History SDOH [facility] - Alcohol Std Drinks Medica l Center History SDOH [facility] - Alcohol Binge Medical Jennifer ter Sex Assigned At [facility] ethodist Exposure to Not sure [place] Metho dist SARS-CoV-2 (event) Cigarettes smoked 2020-01-08 2020-01-08 [place] [facility] current (pack per 00:00:00 00:00:00 day) - Reported Cigarette 2020-01-08 2020-01-08 [place] Method ist pack-years 00:00:00 00:00:00 Tobacco use and 2020-01-08 2020-01-08 Never used [facility] ethodist exposure 00:00:00 00:00:00 Alcohol intake 2020-01-08 2020-01-08 Current drinker [place] [facility] 00:00:00 00:00:00 of alcohol (finding) History SDOH 2019-10-08 2019-10-[address] [facility] - Alcohol Frequency 00:00:00 00:00:00 [facility] Tobacco Comment 2018-06-09 2018-06-09 Quit 20 years Jeannette n [facility] 00:00:00 00:00:00 ago Alcohol Comment 2018-06-09 2018-06-09 Quit over a year Jay frazier [facility] 00:00:00 00:00:00 ago History of tobacco 1994-04-11 Current smoker Ho lj [facility] use 00:00:00 Smoking Status Start Date Stop Date Source Former smoker 2020-01-08 00:00:00 2020-01-08 00:00:00 Chinedu Coronado Medications Ordered Filled Start Stop Current Ordering Indication Dosage Frequency Signature Comments Components Source Medication Medication Date Date Medication? Clinician (SIG) Name Name amoxicillin 2019- 2020- No 850mg Take 850 Che /potassium 05-09 mg by Methodi clav 18:08: 00:[address] (AUGMENTIN 13 :00 ORAL) amoxicillin 2019-0 2020- No 1{tbl} Q.5D Take 1 [place] -pot 05-09 tablet by [facility] clavulanate 00:00: 23:[address] (Augmentin) 00 :00 (two) 875-125 mg times a per tablet day for 5 days. levothyroxi 2020-0 Yes 50ug QD Take 50 [...] minerals 09:51: mouth st tablet 26 daily. lisinopril- 2020-0 Yes 1{tbl} QD Take [address] hydroCHLORO 2-04 tablet by Javed es - thiazide 12:24: mouth Medical (PRINZIDE,Z 03 daily. Center ESTORETIC) 20-12.5 mg per tablet TOBRAMYCIN 2020-0 Yes Apply to [facility] St OPHT 2-04 eye(s). [facility] - 12:24: Medical 03 Center FUROSEMIDE 2020-0 Yes 50mg Q.5D Take [address] ORAL 2-04 by mouth 2 [facility] - 12:24: (two) Medical 03 times Center daily. levothyroxi 2020-0 Yes 75ug Take [address] [facility] 2-04 mcg by [facility] - (SYNTHROID, 12:24: mouth Medic al LEVOTHROID) 03 Every Center 75 MCG morning on tablet an empty stomach. butalb/acet 2020-0 Yes Take by [facility] aminophen/c 2-04 mouth as Luke s - affeine 12:24: needed. Medical (FIORICET 03 Center ORAL) temazepam 2020-0 Yes 30mg Take [address] (RESTORIL) 2-04 by mouth [facility] - 30 mg 12:24: every Medical capsule 03 night as Center needed for Sleep. sumatriptan 2020-0 Yes Take by [facility] St succinate 2-04 mouth as [facility] - (IMITREX 12:24: needed. Medica l ORAL) 03 Center gabapentin 2020-0 Yes 300mg Q.5D Take [address] (NEURONTIN) 2-04 mg by [facility] - 300 MG 12:24: mouth 2 Medical capsule 03 (two) Center times daily. venlafaxine 2020-0 Yes 37.5mg QD Take 37.[address] (EFFEXOR-XR 2-04 mg by [facility] - ) 37.5 MG 12:24: mouth Medical 24 hr 03 daily. [place] capsule fentaNYL 2020-0 Yes 1{patch Place [address] (DURAGESIC) 2-04 } patch onto Maria kes - 100 mcg/hr 12:24: the skin Med ical patch 03 every Center third day. predniSONE 2020-0 Yes 5mg QD Take [address] (DELTASONE) 2-04 by mouth Luke s - 5 MG tablet 12:24: daily. Medi vaishnavi 03 Center pantoprazol 2020-0 Yes 30mg Take [address] e sodium 2-04 by mouth. [facility] - (PROTONIX 12:24: Medical ORAL) 03 Center ofloxacin 2020-0 Yes 1[drp] Q.25D Place [address] (OCUFLOX) 2-04 drop into [facility] - 0.3 % 12:24: the left Medical ophthalmic 03 eye 4 Center solution (four) times daily. brimonidine 2020-0 Yes 1[drp] Q.5D Place [address] -timolol 2-04 drop into [facility] - (COMBIGAN) 12:24: the left Med ical 0.2-0.5 % 03 eye 2 [place] ophthalmic (two) solution times daily. metoprolol 2020-0 Yes 50mg Q.5D Take [address] (LOPRESSOR) 2-04 by mouth 2 Maria kes - 50 MG 12:24: (two) Medical tablet 03 times Center daily. colestipol 2020-0 Yes 5g Q.5D Take [address] (COLESTID) 2-04 by mouth 2 Javed es - 5 gram 12:24: (two) Medical granules 03 times Center daily. predniSONE 2020-0 2020- No Post-radiat 40mg QD Take 2 Che (DELTASONE) 2-04 02-18 ion tablets Meth sirena 20 mg 00:00: 23:59 pneumonitis ([address] tablet 00 :00 (HCC) total) by mouth daily for 14 days. colchicine 2018-09 Yes .3mg Take 0.3 Jay ston 0.6 mg 0-23 mg by Methodi tablet 00:00: mouth. st 00 predniSONE 2018- Yes DAILY [place] (DELTASONE) 0-22 Methodi 20 mg 00:00: st tablet 00 LORAZepam 2018-09 Yes 1mg Q6H Take 1 mg Jay ston (ATIVAN) 1 0-01 by mouth Metho di MG tablet 00:00: Every 6 st 00 hours while awake as needed (RT). colchicine 2019- No .3mg QD Take 0.5 [place] 0.6 mg 9-27 10-27 tablets Methodi tablet 00:00: 23:59 (0.[address] 00 :00 total) by mouth daily for 30 days. colestipoL Yes 1g Take 1 g Jay [...] 40 mg EC 37 breakfast. tablet polyethylen Yes constipatio 17g Take 17 g MD e glycol 9-28 n by mouth Anderso (MIRALAX) 15:13: daily. n 17 g packet 37 albuterol Yes bronchospas 2{puff} Inhale 2 MD (VENTOLIN 9-28 m puffs by Davion o HFA,PROAIR 15:13: prevention mouth n HFA) 90 37 every 6 mcg/puff (six) inhaler hours as needed for wheezing or shortness of breath. potassium Yes hypokalemia 10meq Take 10 MD chloride 9-28 prevention mEq by And erso (MICRO-K) 15:13: mouth as n 10 mEq CR 37 needed for capsule hypokalemi a. fentaNYL Yes Place 75 MD (DURAGESIC) 9-28 mcg/hr Davion o 100 mcg/hr 15:11: patch on n transdermal 33 the skin patch every 72 hours. furosemide 2018-0 Yes 40mg Take 40 mg M D (LASIX) 20 - by mouth Baldemar so mg tablet 15:11: [...] 50mg Take 50 mg M D tartrate 9- by mouth Anderso (LOPRESSOR) 15:11: every n 50 mg 33 morning. tablet ondansetron 2018-0 Yes 4mg Take 4 mg M D (ZOFRAN) 4 - by mouth Baldemar so mg tablet 15:11: every 8 n 33 (eight) hours as needed. OFLOXACIN 2018-0 Yes 1[drp] Administer MD OPHTHALMIC 06-02 1 drop Anderso 15:11: into the n 33 left eye every 6 (six) hours. prednisoLON 2018-0 Yes 1[drp] Administer MD E acetate - 1 drop Anderso (PRED 15:11: into the n FORTE) 1% 33 left eye ophthalmic every 6 suspension (six) hours. sertraline 2018-0 Yes 50mg Take 50 mg M D (ZOLOFT) 50 - by mouth Stu rso mg tablet 15:11: every n 33 evening. oxyCODONE 2018-0 Yes 15mg Take 15 mg MD (ROXICODONE 05-12 by mouth Stu rso ) 15 mg 00:00: every 8 n immediate 00 (eight) release hours as tablet needed. ipratropium 2018-0 Yes 3mL Q.25D Take 3 mL Che -albuterol - by Methodi (DUO-NEB) 00:00: nebulizati st 0.5-2.5 00 on 4 mg/mL (four) nebulizer times a day. tiZANidine Yes 4mg Take 4 mg MD (ZANAFLEX) 5-20 by mouth Baldemar so 4 mg tablet 00:00: twice n 00 daily. Vital Signs Vital Name Observation Time Observation Value Comments Source Body temperature 2020-05-07 13:18:00 35.94 [place] Amanda osman [facility] Body weight 2020-05-07 13:18:00 109.317 kg Che [facility] BMI 2020-05-07 13:18:00 44.08 kg/m2 [place] [facility] Systolic blood 2019-10-30 12:54:00 113 mm[Hg] Amandato n [facility] pressure Diastolic blood 2019-10-30 12:54:00 76 mm[Hg] Rosaura on [facility] pressure Heart rate 2019-10-30 12:54:00 91 /min [place] [facility] Respiratory rate 2019-10-30 12:54:00 17 /min Amanda ton [facility] Body height 2019-10-30 12:54:00 157.5 cm [facility] Oxygen saturation in 2019-10-30 12:54:00 97 /min [facility] Arterial blood by Pulse oximetry Systolic blood 2019-10-09 11:25:00 97 mm[Hg] [facility] Diastolic blood 2019-10-09 11:25:00 56 mm[Hg] [facility] Heart rate 2019-10-09 11:25:00 61 /min [facility] Body temperature 2019-10-09 11:25:00 36.44 [place] [facility] Respiratory rate 2019-10-09 11:25:00 18 /min [facility] Oxygen saturation in 2019-10-09 11:25:00 96 /min [facility] Arterial blood by Medical Ce nter Pulse oximetry Body height 2019-10-09 06:15:00 160 cm [facility] Body weight 2019-10-09 06:15:00 104.2 kg [facility] BMI 2019-10-09 06:15:00 40.69 kg/m2 [facility] Procedures Procedure Date / Time Performing Clinician Source Performed COVID-19 QUALITATIVE PCR 2020-05-07 14:16:00 Jakob Carrera [facility] COMPREHENSIVE METABOLIC 2020-05-07 11:40:00 Jakob Carrera [facility] PANEL HC COMPLETE BLD COUNT 2020-05-07 11:40:00 Jakob Carrera [facility] W/AUTO DIFF SEDIMENTATION RATE 2020-05-07 11:40:00 Deandre Jakob Che M ethodist ESTIMATED GFR 2020-05-07 11:40:00 Jakob Carrera Meth odist PET CT SKULL BASE TO MID 2020-05-07 11:18:27 Jakob Carrera stoed [facility] THIGH POC GLUCOSE 2020-05-07 10:10:00 Jakob Carrera Meth odist XR KNEE 4+ VW RIGHT 2020-03-14 13:57:17 Rg Baum n [facility] PET CT SKULL BASE TO MID 2020-02-05 11:28:43 Jakob Carrera ston [facility] THIGH POC GLUCOSE 2020-02-05 10:08:00 Jakob Carrera Meth odist MRI LUMBAR SPINE WO 2020-01-25 10:46:10 Estella, Melvina Domínguezu ston [facility] CONTRAST MRI THORACIC SPINE WO 2020-01-25 10:44:05 Estella, Melvina Noriegae [place] [facility] CONTRAST MRI CERVICAL SPINE WO 2020-01-25 09:22:00 Estella, Melvina Rosina [place] [facility] CONTRAST XR CHEST 2 VW 2019-12-19 00:00:00 Provider, Dutsin Che [facility] XR CHEST EXTERNAL STUDY 2019-12-18 22:10:[address] [facility] [address] CHEST EXTERNAL STUDY 2019-12-17 03:51:00 Courtney Weir [facility] XR CHEST EXTERNAL STUDY 2019-12-17 02:27:[address] [facility] [address] CHEST EXTERNAL STUDY 2019-12-17 00:00:00 Provider, Dustin Parksist CT HEAD EXTERNAL STUDY 2019-12-07 15:46:00 Courtney Weir on [facility] XR CHEST EXTERNAL STUDY 2019-12-07 00:14:[address] [facility] HEAD EXTERNAL STUDY 2019-12-07 00:00:00 ProviderDustin CARDIAC PET MYOCARDIAL 2019-12-07 00:00:00 ProviderDustin PERFUSION IMAGING XR CHEST 2 VW 2019-12-06 00:00:[address] CHEST WO CONTRAST 2019-10-30 11:00:00 Courtney Weir RHYTHM STRIP - SCAN 2019-10-16 12:42:06 Provider, Default [facility] [place] FLUORO NON-SPECIFIC UP 2019-10-09 07:37:00 [place] Arriola [facility] 1 HOUR [facility] REVISION,INTRATHECAL PUMP 2019-10-09 06:44:00 [place] Arriola ed [facility] PROCEDURE W/ C-ARM 2019-10-09 06:44:00 Flako, Kaushal [facility] XR CHEST 1 VW PORTABLE 2019-10-04 12:05:06 Jessica Miller FUNGUS CULTURE 2019-10-04 10:58:00 Courtney Weir Meth odist RESPIRATORY CULTURE 2019-10-04 10:58:00 Courtney Weir AF[employer] STAIN 2019-10-04 10:58:00 Courtney Weir Meth odist GRAM STAIN 2019-10-04 10:58:00 Courtney Weir Meth [place] RESPIRATORY PATHOGEN 2019-10-04 10:58:00 Courtney Weir PANEL CYTOLOGY 2019-10-04 10:57:00 Courtney Weir odist (NON-GYNECOLOGICAL) REQUEST [place] AN ELECTIVE 2019-10-04 10:16:34 Michaelle Maldonado ENDOTRACHEAL AIRWAY [place] CYTOLOGY 2019-10-04 10:15:00 Courtney Weir Meth odist (NON-GYNECOLOGICAL) REQUEST AFB CULTURE 2019-10-04 09:58:[address] odist CT CHEST WO CONTRAST 2019-10-04 08:31:14 Courtney Weir CBC WITH PLATELET AND 2019-10-02 11:56:00 Courtney Weir DIFFERENTIAL COMPREHENSIVE METABOLIC 2019-10-02 11:56:00 Courtney Weirist PANEL PROTHROMBIN TIME WITH INR 2019-10-02 11:56:00 Courtney Weir PARTIAL THROMBOPLASTIN 2019-10-02 11:56:00 Courtney Weir on [facility] TIME (PTT) CT CHEST WO CONTRAST 2019-09-20 12:19:11 Osman Watts A[address] PET CT SKULL BASE TO MID 2019-07-16 10:38:27 Jakob Carrera THIGH POC GLUCOSE 2019-07-16 09:23:00 Jakob Carrera Meth odist MRI LUMBAR SPINE WO 2019-06-29 10:30:00 Melvina Soria [facility] CONTRAST Plan of Care Planned Activity Planned Date Details Comments Source Future Scheduled 2022-10-04 Screening for [facility] thodist Test 00:00:00 malignant neoplasm of cervix (procedure) [code = 795989311] Future Scheduled 2020-04-05 INFLUENZA VACCINE [place] [facility] Test 00:00:00 [code = INFLUENZA VACCINE] Future Scheduled 2013 BREAST CANCER [place] Me thodist Test 00:00:00 SCREENING [code = BREAST CANCER SCREENING] Future Scheduled 2013 COLONOSCOPY SCREENING [place] [facility] Test 00:00:00 [code = COLONOSCOPY SCREENING] Future Scheduled 2013 SHINGLES VACCINES [place] [facility] Test 00:00:00 (#1) [code = SHINGLES VACCINES (#1)] Encounters Start End Encounter Admission Attending Care Care Encounter Source Date/Time Date/Time Type Type Clinicians Facility Department ID 2020-05-07 2020-05-07 Outpatient JAKOB CARRERA [facility] [id number] [place] 00:00:00 00:00:[address] 2020-05-07 2020-05-07 Outpatient JAKOB CARRERA [facility] [id number] [place] 00:00:00 00:00:[address] 2020-05-07 2020-05-07 Outpatient JAKOB CARRERA [facility] [id number] [place] 00:00:00 00:00:[address] 2020-05-07 2020-05-07 Outpatient JAKOB CARRERA [facility] [id number] [place] 00:00:00 00:00:[address] 2020-03-14 2020-03-14 Outpatient [facility] [id number] [place] 00:00:00 00:00:[address] 2020-03-14 2020-03-14 Outpatient [facility] [id number] [place] 00:00:00 00:00:[address] 2020-02-05 2020-02-05 Outpatient JAKOB CARRERA [facility] [id number] [place] 00:00:00 00:00:[address] 2020-02-05 2020-02-05 Outpatient JAKOB CARRERA [facility] [id number] [place] 00:00:00 00:00:[address] 2020-01-25 2020-01-25 Outpatient ESTELLA, [facility] [id number] [place] 00:00:00 00:00:00 MELVINA [address] 2020-01-25 2020-01-25 Outpatient ESTELLA, [facility] [id number] [place] 00:00:00 00:00:00 MELVINA [address] 2020-01-25 2020-01-25 Outpatient ESTELLA, [facility] [id number] [place] 00:00:00 00:00:00 MELVINA [address] 2020-01-08 2020-01-08 Outpatient COURTNEY WEIR [facility] [id number] [place] 00:00:00 00:00:[address] 2020-01-03 2020-01-03 Outpatient COURTNEY WEIR [facility] [id number] [place] 00:00:00 00:00:[address] 2020-01-03 2020-01-03 Outpatient THEA, MIN [facility] [id number] [place] 00:00:00 00:00:[address] 2020-01-03 2020-01-03 Outpatient COURTNEY WEIR [facility] [id number] [place] 00:00:00 00:00:[address] 2020-01-03 2020-01-03 Outpatient THEA MIN [facility] [id number] [place] 00:00:00 00:00:[address] 2020-01-03 2020-01-03 Outpatient THEA, MIN [facility] [id number] [place] 00:00:00 00:00:[address] 2019-10-30 2019-10-30 Outpatient THEA, MIN [facility] [id number] [place] 00:00:00 00:00:[address] 2019-10-30 2019-10-30 Outpatient THEA, MIN [facility] [id number] [place] 00:00:00 00:00:[address] 2019-10-04 2019-10-04 Outpatient THEA MIN [facility] [id number] [place] 00:00:00 00:00:[address] 2019-10-04 2019-10-04 Outpatient THEA, [place] [address] [id number] [place] 00:00:00 00:00:[address] 2019-09-20 2019-09-20 Outpatient PRABHJOT, [facility] [id number] [place] 00:00:00 00:00:00 OSMAN [address] 2019-07-16 2019-07-16 Outpatient JAKOB CARRERA [facility] [id number] [place] 00:00:00 00:00:[address] 2019-06-29 2019-06-29 Outpatient ESTELLA, [facility] [id number] [place] 00:00:00 00:00:00 MELVINA [address] 2019-05-29 2019-05-31 Inpatient SARI, [facility] [id number] [place] 00:00:00 00:00:00 JERAMIE 684 Method i Results Test Description Test Time Test Comments Results Result Comments Source COVID-19 qualitative PCR 2020-05-07 22:50:18 Test Item Value Reference Range Interpretation Comme nts Interpretation (test code = Negative results do not 9222740) preclude 2019-nCoV infection and should not be used as the sole basis for treatment or other patient management decisions. Negative results must be combined with clinical observations, patient history, and epidemiological information. COVID-19 qualitative PCR Not-Detected Not-Detected result (test code = 62856-4) COVID-19 qualitative PCR See link below for PDF Lab Case Number: (test code = 7070) Report [id number] [place] [facility] [id number] 13:01:07 Test Item Value Reference Range Interpretation Comments Sedimentation rate (test code = 47 0- 20 mm/hr H 43486-4) Lab Interpretation (test code = Abnormal 56437-2) [facility] metabolic [id number] 12:23:38 Test Item Value Reference Range Interpretation Comments Sodium (test code = 143 135- 148 mEq/L 2951-2) Potassium (test code = 4.5 3.5- 5.0 mEq/L 2823-3) Chloride (test code = 101 98- 112 mEq/L 2075-0) CO2 (test code = 2027-9) 29 24- 31 mEq/L Anion gap (test code = 13@ANIO 7- 15 mEq/L 57579-8) BUN (test code = 3094-0) 32 mg/dL 6-20 H Creatinine (test code = 1.90 mg/dL 0.5-0.9 H 2160-0) Glucose (test code = 93 mg/dL 65-99 2345-7) Calcium (test code = 9.1 mg/dL 8.3-10.2 05864-1) Protein (test code = 6.9 g/dL 6.3-8.3 -[place] n 2885-2) 4.6-7.0 g/dL1 week 4.4-7 .6 g/dL7 months-1y ear 5.1-7 .3 g/dL1-2 years 5.6-7 .5 g/dL>3 years 6.0-8 .0 g/eR68-267 6.3-8 .3 g/dL Albumin (test code = 3.4 g/dL 3.5-5 L 1751-7) A/G ratio (test code = 1.0 0.7-3.8 1759-0) Alkaline phosphatase 84 U/L 35-104 (test code = 6768-6) AST (test code = 1920-8) 16 U/L 10-35 ALT (test code = 1742-6) 14 U/L 5-50 Total bilirubin (test <0.2 0-1.2 code = 1974-2) Lab Interpretation (test Abnormal code = 79178-2) Che [facility] [id number] 12:23:24 Test Item Value Reference Range Interpretation Comments Estimated GFR (test 29 mL/min/1.73 m2 A [facility] or Units code = 5488) InterpretationG 1 >=90 Candelaria l or highG2 60-89 Mildly decrease dG3a 45-59 Mil dly to moderately decr lntovH3b 30-44 Moderately to s everely decreasedG4 15-29 Severe ly decreasedG5 <15 Kidney alpesh lureThe eGFR was calcul ated using the Chron ic Kidney Disease Epidemiology Collaboration ( CKD-EPI) equation. Interpretation is based on recommendati ons of the National Ki d[facility]-Kidn ey Disease Outcome s Quality Initiat vernon (NKF-KDOQI) pub lished in 2013. Lab Interpretation Abnormal (test code = 57604-9) [place] MethodistPET/CT Skull Base To Mid [id number] 12:15:14Hm Interface, Radiology Results 05/07/2020 12:18 PM CDTEXAMINATION: PET CT SKULL BASE TOMID THIGHCLINICAL HISTORY: C34.91 Malignant neoplasm of unspecified part of right bronchus or lung, C34.92 Malignant neoplasm of unspecified part of left bronchus or lung, lung ca ; RESTAGINGCOMPARISON: PET/CT 02/05/2020, No other more recent imaging TECHNIQUE: The patient received 10-15 mCi 18-FDG intravenously. 1 hour later, PET/CT scanning from the orbits to the mid thighs was performed. CT scanning was nondiagnostic and used for attenuation correction purposes and to aid in localization of any abnormal findings on the PET images. Automated dose exposure control was utilized. Blood glucose = 83.FINDINGS:Head and NeckThere is no suspicious lymph node uptake and no evidence of malignancy in the brain.ChestResidual linear consolidation in the left apex from what was once a much larger consolidation, with mild uptake, not significantly changed from prior (SUV = 3.1, previously 2.7). However, if the anterior/inferior aspect of this is a new 3 cm lobulated opacity that may represent focal consolidation with moderate uptake (SUV = 5.3). Just anterolateral to the linear consolidation is a new 2.1 cm ill-defined opacity with mild uptake (SUV = 3.2). A small, ill- defined, inflammatory-appearing opacity in the medial superior segment of the left lower lobe has an SUV of 2.9. No suspicious uptake in the: mediastinum, debbi, axillae.AbdomenUptake is normal in the: liver, spleen, adrenal glands, pancreas, kidneys, stomach. There is no suspicious retroperitoneal or mesenteric lymph node uptake.PelvisThere is no suspicious pelvic or inguinal lymph node uptake.Osseous StructuresThere is no suspicious osseous uptake. IMPRESSION:1.New opacities with mild uptake in the anterior left apex and left lower lobe are most likely inflammatory (infectious or noninfectious). However, malignancy cannot completelybe excluded in the apex and short-term follow-up with CT or PET/CT in approximately 2 months is recommended.2.Stable, linear, residual consolidation in the left upper lobe.[facility]-[id number] Regional [facility] Center with platelet and [id number] 11:53:03 Test Item Value Reference Range Interpretation Comments WBC (test code = 68715-2) 6.67 4.50- 11.00 k/uL RBC (test code = 87026-8) 3.56 m/uL 4.2-5.5 L HGB (test code = 718-7) 11.0 g/dL 12-16 L HCT (test code = 4544-3) 34.5 % 37-47 L MCV (test code = 787-2) 96.9 fL 82-100 MCH (test code = 785-6) 30.9 pg 27-34 MCHC (test code = 786-4) 31.9 g/dL 31-37 RDW - SD (test code = 44.0 fL 37-55 62451-8) MPV (test code = 90511-9) 9.8 fL 8.8-13.2 Platelet count (test code 179 150- 400 k/uL = 14763-8) Nucleated RBC (test code 0.00 /100 WBC = 95357-5) Neutrophils (test code = 63.9 % 39-69 20960-0) Lymphocytes (test code = 24.1 % 25-45 L 74871-8) Monocytes (test code = 9.7 % 0-10 09472-9) Eosinophils (test code = 1.6 % 0-5 57956-1) Basophils (test code = 0.1 % 0-1 49383-0) Immature granulocytes 0.6 % 0-1 "Immat ure (test code = 52174-0) granul ocytes" (promyelocytes, myelocytes, metamyelocytes) Lab Interpretation (test Abnormal code = 39890-7) [facility] [id number] 10:13:23 Test Item Value Reference Range Interpretation Comments POC glucose (test 83 mg/dL 65-99 Cast Iron Drain Pipe Layer N yulissa: Mariano code = 18848-8) ValerieDlesa e ID: [id number] able: No Action Needed Chinedu ParksMountain View Regional Medical CenterI Lumbar Spine Wo [id number] 12:32:37Hm Interface, Radiology Results 01/25/2020 12:35 PM [...] spinal stenosis.Subtle degenerative anterolisthesis at L4-5 without spondylolysis.[facility]-[id number] [facility] Thoracic Spine Wo [id number] 11:03:01Hm Interface, Radiology Results 01/25/2020 11:06 AM [...] to severe left neural foraminal narrowing at T8-T9.[id number] MethodistI Cervical Spine Wo Fafzqztf2728-76-30 10:35:08Hm Interface, Radiology Results 01/25/2020 10:38 AM [...] progressive stenosis identified. No acute osseous abnormalities appreciated.[id number] MethodistXR Chest External [id number] 23:07:29This exam was not acquired at a [facility] facility and has not been interpreted by a [facility] Provider. The exam was imported into our imaging system.[facility] MethodistCT Head External Study 2020-01-03 20:20:28This exam was not acquired at a [facility] facility and has not been interpreted by a [facility] Provider. The exam was imported into our imaging system.[facility]CT Chest External [id number] 20:20:06This exam was not acquired at a [facility] facility and has not been interpreted by a [facility] Provider. The exam was imported into our imaging system.[facility] MethodistAFB [id number] 00:13:39 Test Item Value Reference Range Interpretation Comments AFB culture No growth Specimen isolate (test after 6 weeks InformationSp ecimen code = 543-9) of Source: Bronch ial alveolar incubation. lavageSpecimen Site: Lung: KOJO BAL [facility] MethodistFungus [id number] 00:15:30 Test Item Value Reference Range Interpretation Comments Fungus culture No growth Specimen isolate (test after 4 weeks InformationSp ecimen code = 1441) of Source: Bronchi al alveolar incubation. lavageSpecimen Site: Lung: KOJO BAL [facility] MethodistCT Chest Wo [id number] 13:39:00 Interface, Radiology Results - 10/30/2019 1:42 PM CSTEXAMINATION:CT CHEST WO CONTRASTCLI [...] lung bases unchanged significantly from July 26, 2018..[id number] MethodistLegionella [id number] 07:25:46Legionella culture isolateNo Legionella isolated.No Legionella isolated. Comment: Specimen Informatio nSpecimen Source: Bronchial alveolar lavageSpecimen Site: Lung: KOJO BAL [facility] MethodistNocardia [id number] 09:04:41 Test Item Value Reference Range Interpretation Comments Nocardia No Nocardia Specimen culture isolate isolated after Informatio nSpecimen (test code = 7 days. Source: Bronchi al 1808) alveolar lavage Specimen Site: [facility]: [facility] [place], FLUORO, NON-SPECIFIC, UP TO 1 [id number] 08:26:00Reason for exam:->Chronic PainFINAL REPORT A fluoroscopic unit was utilized for a procedure performed in the operating room. No interpretation was requested. Please refer to the operative report regarding findings. Please refer to PACS for patient radiation dose information. Signed: Jia Qureshi Verified Date/Time: 10/09/2019 08:26:53 Reading Location: [facility] Radiology Reading Room [place] fluoro non-specific up to 1 hour 2019-10-09 08:26:00Interface, External Ris In - 10/09/2019 8:29 AM CSTFINAL REPORT A fluoroscopic unit was utilized for a procedure performed in the operating room. No interpretation was requested. Please refer to the operative report regarding findings. Please refer to PACS for patient radiationdose information. Signed: Jia Qureshi MDReport Verified Date/Time: 10/09/2019 08:26:53 Reading Location: [facility] [id number] 12:00:01 Test Item Value Reference Range Interpretation Comments Case number (test code = [id number]) Cytology See link below for (non-gynecological) PDF Lab Report report (test code = 1178) Result status (test code This is Final Report = [id number]) for [id number] [facility] MethodistRespiratory [id number] 19:40:09 Test Item Value Reference Range Interpretation Comments Respiratory Normal oral Specimen culture isolate mic InformationS pecimen (test code = isolated. Source: Bronchi al 55790-2) alveolar lavage Specimen Site: Lung: KOJO BAL [facility] MethodistFungus [id number] 16:31:41 Test Item Value Reference Range Interpretation Comments Fungus smear No fungi Specimen (test code = observed. InformationSpec imen Source: 1443) Bronchial alveo lar lavageSpecimen Site: Lung: KOJO BAL [facility] MethodistAFB [id number] 05:00:32 Test Item Value Reference Range Interpretation Comments AFB stain No acid fast Specimen (test code = bacilli (AFB) InformationSpe cimen 676-7) seen. Source: Bronchi al alveolar lavageSpecimen Site: Lung: KOJO BAL [facility] MethodistRespiratory pathogen [id number] 03:00:52Respiratory pathogen panelNegative for all pathogens tested:Negative for AdenovirusNegative for Coronavirus RDZ1Cahbemwa for Coronavirus GK96Fnwljhdt for Coronavirus 229ENegative for Coronavirus OJ14Zxprrizo for Human MetapneumovirusNegative for Rhinovirus/EnterovirusNegative for Influenza ANegative for Influenza A/E6Khnfztrs for Influenza A/P6Nuqskdqn for Influenza A/H1-2009Negative for Influenza BNegative for [...] onchial alveolar lavageSpecimen Site: Lung: KOJO BAL [facility] HospitalG[facility] [id number] 21:04:51Gram stain isolateRare WBC'sNo organisms seen Comment: Specimen InformationSpecimen Source: Bronchial alveolar lavageSpecimen Site: Lung: KOJO BAL [facility] Chest 1 Vw [id number] 12:22:51Hm Interface, Radiology Results - 10/04/2019 12:25 PM CSTEXAMINATION: XR CHEST 1 VW PORTABLEINDICATION: s p bronchoscopy with biopsy eval for PTXCOMPARISON: Most recent priorIMPRESSION:Focal consolidation in the left upper lobe appears similar when compared to prior chest CT.No evidence of apneumothorax.Stable appearance of the heart and mediastinum.Right chest port with catheter tip overlying the SVC.Old right rib fracture deformities.[facility]-AC39LJBSGenrwhe [id number] 10:16:34ContreMichaelle slater MD 10/04/2019 10:53 AMAirwayPerformed by: Michaelle Maldonado MDAuthorized by: Michaelle Maldonado MD Location: ORUrgency: ElectiveDifficult Airway: No Anesthesiologist: Michaelle Maldonado, MDResident/MATERIAL ASSEMBLER/AA: Rufino Jennings CRNAOther Anesthesia Staff: Andres MacarioPerformed [...] no injury to lips, teeth, or oropharynx. Chinedu Coronado
--- NOTE | 2020-06-18 17:32 | RAD REPORT ---
[facility] CLINICAL HISTORY: Chest pain COMPARISON: January 2020 FINDINGS: Left upper lobe rectangular opacity unchanged probably atelectasis The right lung appears clear of acute infiltrate Heart is normal size. A central venous line has its tip in the superior vena cava. Old rib fractures
[2020-06-18] MEDS ORDERED: FENTANYL CITR 100 MCG/2 ML ONE (18:11)
[2020-06-18 18:14] LABS: Absolute Lymphocytes (CBC) 1.5 K/uL (0.7-4.9); Basophils % 0.5 % (0-1.3); Hematocrit 33.2 % (36.0-45.0); Lymphocytes % 25.4 % (15.3-44.8); MPV 8.4 fL (7.6-11.3)
[2020-06-18 18:15] LABS: Protime INR 0.97
[2020-06-18 18:31] LABS: ALT/SGPT 22 U/L (12-78); AST/SGOT 14 U/L (15-37); Albumin 3.5 g/dL (3.4-5.0); Alkaline Phosphatase 85 U/L (45-117); BUN Blood Urea Nitrogen 34 mg/dL (7-18); Bicarbonate 28 mmol/L (21-32); Bilirubin Direct < 0.1 mg/dL (0-0.2); Bilirubin Total 0.3 mg/dL (0.2-1.0); Glucose Level 85 mg/dL (74-106); NT PRO-BNP 157 pg/mL (<125); Protein, Total 7.7 g/dL (6.4-8.2); Sodium Level 142 mmol/L (136-145); Troponin (Emerg Dept Use Only) < 0.02 ng/mL (0.0-0.045)
[2020-06-18] MEDS ORDERED: MORPHINE 2 MG/ML SYR ONE (19:09)
[2020-06-18] MEDS ORDERED: ONDANSETRON 4 MG/2 ML VIAL ONE (19:09)
[2020-06-18] MEDS ORDERED: NA CHLORIDE 0.9% 500 ML ONE (19:37)
--- NOTE | 2020-06-18 19:42 | EDPHYS ---
Physician Documentation [facility] Name: Anisha Lindsay Age: 54 yrs Sex: Female : 1965 Arrival Date: 06/18/2020 Time: 16:47 Bed 2 Private MD: ED Physician Brigido Yepez HPI: 06/18 19:35 This 54 yrs old Female presents to ER via Wheelchair with complaints of Chest jr8 Pain. 19:38 The patient or guardian reports chest pain that is located primarily in the left jr8 lateral anterior chest. Onset: suddenly, 2 day(s) ago. The pain does not radiate. Associated signs and symptoms: The patient has no apparent associated signs or symptoms. The chest pain is described as sharp. Duration: The patient or guardian reports multiple episodes, that are intermittent, that wax and wane. Modifying factors: The symptoms are alleviated by nothing. the symptoms are aggravated by movement. Severity of pain: At its worst the pain was mild in the emergency department the pain is unchanged. The patient has not experienced similar symptoms in the past. The patient has not recently seen a physician. Historical: - Allergies: 17:07 Adhesives; ca1 17:07 Celebrex; ca1 17:07 Demerol; ca1 - PMHx: 17:07 Adenocarcinoma of the Lungs; Anxiety; CHF; COPD; CSF leak; Depression; Hypertension; ca1 Hypothyroidism; osteo arthirtis; pericardial effusion; Myocardial infarction; pericarditis; Renal Disease; Rheumatoid Arthritis; Stage 4 Lung Cencer- currently on Chemo; - PSHx: 17:07 Cholecystectomy; Appendectomy; Hysterectomy; Knee surgery; ca1 - Immunization history:: Adult Immunizations up to date. - Social history:: Smoking status: Patient/guardian denies using tobacco, the patient reports quitting approximately 25 years ago. ROS: 19:38 Eyes: Negative for injury, pain, redness, and discharge, ENT: Negative for injury, jr8 pain, and discharge, Neck: Negative for injury, pain, and swelling, Respiratory: Negative for shortness of breath, cough, wheezing, and pleuritic chest pain, Abdomen/GI: Negative for abdominal pain, nausea, vomiting, diarrhea, and constipation, Back: Negative for injury and pain, MS/Extremity: Negative for injury and deformity, Skin: Negative for injury, rash, and discoloration, Neuro: Negative for headache, weakness, numbness, tingling, and seizure. 19:38 Cardiovascular: Positive for chest pain. Exam: 19:38 Eyes: Pupils equal round and reactive to light, extra-ocular motions intact. Lids and jr8 lashes normal. Conjunctiva and sclera are non-icteric and not injected. Cornea within normal limits. Periorbital areas with no swelling, redness, or edema. ENT: Nares patent. No nasal discharge, no septal abnormalities noted. Tympanic membranes are normal and external auditory canals are clear. Oropharynx with no redness, swelling, or masses, exudates, or evidence of obstruction, uvula midline. Mucous membranes moist. Neck: Trachea midline, no thyromegaly or masses palpated, and no cervical lymphadenopathy. Supple, full range of motion without nuchal rigidity, or vertebral point tenderness. No Meningismus. Chest/axilla: Normal chest wall appearance and motion. Nontender with no deformity. No lesions are appreciated. Cardiovascular: Regular rate and rhythm with a normal S1 and S2. No gallops, murmurs, or rubs. Normal PMI, no JVD. No pulse deficits. Respiratory: Lungs have equal breath sounds bilaterally, clear to auscultation and percussion. No rales, rhonchi or wheezes noted. No increased work of breathing, no retractions or nasal flaring. Abdomen/GI: Soft, non-tender, with normal bowel sounds. No distension or tympany. No guarding or rebound. No evidence of tenderness throughout. Back: No spinal tenderness. No costovertebral tenderness. Full range of motion. Skin: Warm, dry with normal turgor. Normal color with no rashes, no lesions, and no evidence of cellulitis. MS/ Extremity: Pulses equal, no cyanosis. Neurovascular intact. Full, normal range of motion. Neuro: Awake and alert, GCS 15, oriented to person, place, time, and situation. Cranial nerves II-XII grossly intact. Motor strength 5/5 in all extremities. Sensory grossly intact. Vital Signs: 17:01 BP 90 / 60; Pulse 87; Resp 18 S; Temp 97.1(TE); Pulse Ox 97% on R/A; Weight 108.86 kg ca1 (R); Height 5 ft. 3 in. (160.02 cm) (R); 18:19 BP 107 / 62; Pulse 85; Resp 18; Pulse Ox 100% on 2 lpm NC; ph 18:57 BP 109 / 65; Pulse 72; Resp 16; Pulse Ox 99% on 2 lpm NC; mt 20:30 BP 94 / 53; Pulse 74; Resp 18; Pulse Ox 98% on 2 lpm NC; wh 17:01 Body Mass Index 42.51 (108.86 kg, 160.02 cm) ca1 MDM: 17:10 Patient medically screened. 8 19:38 Data reviewed: vital signs, nurses notes, lab test result(s), EKG, radiologic studies, jr8 plain films. Data interpreted: Pulse oximetry: on room air is 99 %. Interpretation: normal. Counseling: I had a detailed discussion with the patient and/or guardian regarding: the historical points, exam findings, and any diagnostic results supporting the discharge/admit diagnosis, lab results, radiology results. ED course: Negative for acute chest pain findings. Patient with subsequent decrease in renal function from last visit. Acute component present. Will lightly hydrate and admit for obs to see how she does. 06/18 17:08 Order name: Basic Metabolic Panel [facility] 06/18 17:08 Order name: CBC with Diff [facility] 06/18 17:08 Order name: LFT's [facility] 06/18 17:08 Order name: Magnesium [facility] 06/18 17:08 Order name: NT PRO-BNP; Complete Time: 19:12 [facility] 06/18 17:08 Order name: PT-INR; Complete Time: 19:12 [facility] 06/18 17:08 Order name: Troponin (emerg Dept Use Only); Complete Time: 19:12 [facility] 06/18 17:08 Order name: XRAY Chest (1 view); Complete Time: 17:54 [facility] 06/18 17:08 Order name: C-Reactive Protein; Complete Time: 19:12 [facility] 06/18 17:08 Order name: ESR; Complete Time: 19:12 [facility] 06/18 17:08 Order name: Basic Metabolic Panel; Complete Time: 19:12 ED[facility] 06/18 17:08 Order name: CBC with Automated Diff; Complete Time: 19:12 EDMS 06/18 17:08 Order name: Liver (Hepatic) Function; Complete Time: 19:12 EDMS 06/18 17:09 Order name: Magnesium; Complete Time: 19:12 [facility] 06/18 17:08 Order name: EKG; Complete Time: 17:09 jr8 06/18 17:08 Order name: Cardiac monitoring; Complete Time: 17:48 jr8 06/18 17:08 Order name: EKG - Nurse/Tech; Complete Time: 17:48 jr8 06/18 17:08 Order name: IV Saline Lock; Complete Time: 18:19 jr8 06/18 17:08 Order name: Labs collected and sent; Complete Time: 18:19 jr8 06/18 17:08 Order name: O2 Per Protocol; Complete Time: 17:48 jr8 06/18 17:08 Order name: O2 Sat Monitoring; Complete Time: 17:48 jr8 Administered Medications: 18:18 Drug: fentaNYL (PF) 25 mcg Route: IVP; Site: Port-a-cath; ph 19:07 Follow up: Response: No adverse reaction; Pain is unchanged, physician notified; RASS: ph Alert and Calm (0) 19:03 Drug: Zofran (Ondansetron) 4 mg Route: IVP; Site: Port-a-cath; ph 19:18 Follow up: Response: No adverse reaction; Nausea is decreased ph 19:05 Drug: morphine 2 mg Route: IVP; Site: Port-a-cath; ph 19:18 Follow up: Response: No adverse reaction; Pain is decreased; RASS: Alert and Calm (0) ph 19:16 CANCELLED (Physician Discretion): NS 0.9% 1000 ml IV at 1000 ml once jr8 19:31 Drug: NS 0.9% 500 ml Route: IV; Rate: bolus; Site: Port-a-cath; Disposition: 06/19 08:27 Co-signature as Attending Physician, Brigido Yepez MD I agree with the assessment and kdr plan of care. Disposition: 06/18/20 19:41 Hospitalization ordered by Vik Acosta for Observation. Preliminary diagnosis is Acute kidney failure. - Bed requested for Telemetry/MedSurg (observation). - Status is Observation. tt3 - Condition is Stable. - Problem is new. - Symptoms are unchanged. Signatures: Dispatcher [employer] [facility] Brigido Yepez MD MD kdr Roszak, Josh, PA PA jr8 Mercy Spann RN Lauren Fountain ph, ALEX RN cg Elizabeth Villa Cheryl, RN RN ca1 Trim, Perfecto tt3 Corrections: (The following items were deleted from the chart) 06/18 19:16 19:14 NS 0.9% 1000 ml IV at 1000 ml once ordered. jr8 jr8 20:28 19:41 Hospitalization Ordered by Vik Acosta DO for Observation. Preliminary cg diagnosis is Acute kidney failure. Bed requested for Telemetry/MedSurg (observation). Status is Observation. Condition is Stable. Problem is new. Symptoms are unchanged. jr8 20:57 20:28 06/18/2020 19:41 Hospitalization Ordered by Vik Acosta DO for Observation. tt3 Preliminary diagnosis is Acute kidney failure. Bed requested for Telemetry/MedSurg (observation). Status is Observation. Condition is Stable. Problem is new. Symptoms are unchanged. cg
--- NOTE | 2020-06-18 19:42 | ER ---
Nurse's Notes [facility] Name: Anisha Lindsay Age: 54 yrs Sex: Female : 1965 Arrival Date: 06/18/2020 Time: 16:47 Bed 2 Private MD: Diagnosis: Acute kidney failure Presentation: 06/18 17:01 Chief complaint: Patient states: L sided Chest pain and under the ribs since 3 hours ca1 ago. Hx of pericarditis. Reports nausea, dizziness, headache, SOB with CP. has Stage 4 Lung Cancer. Denies fever. Reports difficulty swallowing. Coronavirus screen: headache, nausea, shortness of breath, Client presents with at least one sign or symptom that may indicate coronavirus-19. Standard/surgical mask placed on the client. Provider contacted for isolation considerations. Ebola Screen: Patient negative for fever greater than or equal to 101.5 degrees Fahrenheit, and additional compatible Ebola Virus Disease symptoms Patient denies exposure to infectious person. Patient denies travel to an Ebola-affected area in the 21 days before illness onset. No symptoms or risks identified at this time. Initial Sepsis Screen: Does the patient meet any 2 criteria? No. Patient's initial sepsis screen is negative. Does the patient have a suspected source of infection? No. Patient's initial sepsis screen is negative. Risk Assessment: Do you want to hurt yourself or someone else? Patient reports no desire to harm self or others. Onset of symptoms was June 18, 2020. 17:01 Method Of Arrival: Wheelchair ca1 17:01 Acuity: CHEN 3 ca1 Historical: - Allergies: 17:07 Adhesives; ca1 17:07 Celebrex; ca1 17:07 Demerol; ca1 - PMHx: 17:07 Adenocarcinoma of the Lungs; Anxiety; CHF; COPD; CSF leak; Depression; Hypertension; ca1 Hypothyroidism; osteo arthirtis; pericardial effusion; Myocardial infarction; pericarditis; Renal Disease; Rheumatoid Arthritis; Stage 4 Lung Cencer- currently on Chemo; - PSHx: 17:07 Cholecystectomy; Appendectomy; Hysterectomy; Knee surgery; ca1 - Immunization history:: Adult Immunizations up to date. - Social history:: Smoking status: Patient/guardian denies using tobacco, the patient reports quitting approximately 25 years ago. Screenin:47 Abuse screen: Denies threats or abuse. Denies injuries from another. Nutritional ph screening: No deficits noted. Tuberculosis screening: No symptoms or risk factors identified. Fall Risk None identified. Assessment: 17:46 General: Appears in no apparent distress. comfortable, obese, well groomed, Behavior is ph calm, cooperative, appropriate for age, Denies fever, feeling ill. Pain: Complains of pain in left lateral anterior chest Quality of pain is described as sharp, squeezing, Aggravated by repositioning. Neuro:. Neuro: Level of Consciousness is awake, alert, obeys commands, Oriented to person, place, time, situation. Cardiovascular: Reports chest pain, nausea, vomiting, Capillary refill < 3 seconds in bilateral fingers Patient's skin is warm and dry. Chest pain quality is sharp, is located in left lateral chest wall. Respiratory: Reports pain with cough pain with movement pain with respiration Airway is patent Respiratory effort is even, unlabored, Respiratory pattern is regular, symmetrical. GI: Reports nausea, vomiting. Derm: Skin is intact, Skin is pink, warm \T\ dry. 19:06 Reassessment: Patient appears in no apparent distress at this time. Patient and/or family updated on plan of care and expected duration. Pain level reassessed. Patient is alert, oriented x 3, equal unlabored respirations, skin warm/dry/pink. 19:15 General: Appears in no apparent distress. Behavior is calm, cooperative, appropriate wh for age. Pain: Complains of pain in left lateral anterior chest Pain does not radiate. Pain began gradually. Neuro: Level of Consciousness is awake, alert, obeys commands, Oriented to person, place, time, situation, Appropriate for age. Cardiovascular: Heart tones S1 S2. Respiratory: Airway is patent Respiratory effort is even, unlabored, Respiratory pattern is regular, symmetrical, Breath sounds are clear bilaterally. GI: Abdomen is round non-distended. : No signs and/or symptoms were reported regarding the genitourinary system. EENT: No signs and/or symptoms were reported regarding the EENT system. Derm: Skin is intact, is healthy with good turgor, Skin is pink, warm \T\ dry. normal. Musculoskeletal: Circulation, motion, and sensation intact. 20:30 Reassessment: Patient appears in no apparent distress at this time. No changes from previously documented assessment. Patient and/or family updated on plan of care and expected duration. Pain level reassessed. Patient is alert, oriented x 3, equal unlabored respirations, skin warm/dry/pink. updated on POC need for admit. Vital Signs: 17:01 BP 90 / 60; Pulse 87; Resp 18 S; Temp 97.1(TE); Pulse Ox 97% on R/A; Weight 108.86 kg ca1 (R); Height 5 ft. 3 in. (160.02 cm) (R); 18:19 BP 107 / 62; Pulse 85; Resp 18; Pulse Ox 100% on 2 lpm NC; ph 18:57 BP 109 / 65; Pulse 72; Resp 16; Pulse Ox 99% on 2 lpm NC; mt 20:30 BP 94 / 53; Pulse 74; Resp 18; Pulse Ox 98% on 2 lpm NC; wh 17:01 Body Mass Index 42.51 (108.86 kg, 160.02 cm) ca1 ED Course: 16:47 Patient arrived in ED. ds1 17:05 Triage completed. ca1 17:07 Roque Dang PA is PHCP. jr8 17:07 Brigido Yepez MD is Attending Physician. jr8 17:07 Arm band placed on right wrist. ca1 17:10 Mercy Spann RN is Primary Nurse. ph 17:21 XRAY Chest (1 view) In Process Unspecified. EDMS 17:48 Patient has correct armband on for positive identification. Placed in gown. Bed in low ph position. Call light in reach. Side rails up X2. delivery driver/customer service on. Pulse ox on. NIBP on. Door closed. Noise minimized. Warm blanket given. 17:48 Oxygen administration via nasal cannula \T\ 2L/min. ph 18:15 Accessed Port-a-Cath. using accessed w/ # 20 Kahn needle, ,sterile technique, per [address] protocol. Clean \T\ dry. Dressing intact. Good blood return. Flushes easily. 19:41 Vik Acosta DO is Hospitalizing Provider. jr8 20:50 No provider procedures requiring assistance completed. Patient admitted, IV remains in place. Administered Medications: 18:18 Drug: fentaNYL (PF) 25 mcg Route: IVP; Site: Port-a-cath; ph 19:07 Follow up: Response: No adverse reaction; Pain is unchanged, physician notified; RASS: ph Alert and Calm (0) 19:03 Drug: Zofran (Ondansetron) 4 mg Route: IVP; Site: Port-a-cath; ph 19:18 Follow up: Response: No adverse reaction; Nausea is decreased ph 19:05 Drug: morphine 2 mg Route: IVP; Site: Port-a-cath; ph 19:18 Follow up: Response: No adverse reaction; Pain is decreased; RASS: Alert and Calm (0) ph 19:16 CANCELLED (Physician Discretion): NS 0.9% 1000 ml IV at 1000 ml once jr8 19:31 Drug: NS 0.9% 500 ml Route: IV; Rate: bolus; Site: Port-a-cath; Outcome: 19:41 Decision to Hospitalize by Provider. jr8 20:50 Admitted to Med/surg accompanied by tech, via wheelchair, room 211, with chart, Report wh called to Vianey Maravilla RN 20:50 Condition: stable 20:50 Instructed on the need for admit. 20:57 Patient left the ED. tt3 Signatures: Dispatcher [employer] [facility] Anat Rogers dsRoque Rivera PA PA jr8 Mercy Spann, RN RN ph Mauri, [facility] Peyton Fox RN RN Michaelle Fortune RN RN vg1 Perfecto Ying tt3
--- NOTE | 2020-06-18 20:13 | P.HP ---
Certification for Inpatient Patient admitted to: Observation With expected LOS: <2 Midnights Patient will require the following post-hospital care: None Practitioner: I am a practitioner with admitting privileges, knowledge of patient current condition, hospital course, and medical plan of care. Services: Services provided to patient in accordance with Admission requirements found in Title 42 Section 412.3 of the Code of Federal Regulations <Brian Bliss - Last Filed: 06/18/20 20:07> Patient admitted to: Observation <Vik Acosta - Last Filed: 06/19/20 11:21> Patient History Date of Service: 06/18/20 Primary Care Provider: Dr. Farris, Nephrology- Dr. Lam, Cardiology- Dr. Goddard Reason for admission: Chest pain History of Present Illness: 54-year-old female with history of lung cancer, chronic kidney disease, chronic diastolic congestive heart failure, COPD, rheumatoid arthritis, IBD, hypothyroidism presents emergency department for left-sided chest pain. Patient reports pain feels like it is underneath her redness and is a grabbing /pulling pain. Patient denies similar pain in the past, states pain is exacerbated by deep breath or coughing. 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 Last echocardiogram in November 2019 shows no pericardial effusion and a left ventricular ejection fraction of 67%. Patient also with CKD stage IV baseline creatinine around 2 has gone up slightly to 2.6. GFR baseline around 25 is now down to 19. Patient does admit to having a moderate amount of nausea vomiting over the course of the last few days as well as taking ibuprofen last 2 nights for headache. Patient last female was approximately 1 year ago, had a recent PET scan that showed that she is no longer in remission that she is not began chemo, radiation, surgery at this time. Initial troponin negative, chest x-ray unremarkable. ED provider wishes to admit patient for further evaluation and management of chest pain and ROSALVA on CKD. When I saw the patient in the emergency department she is awake, alert, oriented x3. Patient does report mild to moderate pain left chest wall. Pain seems pleuritic in nature. Patient will be admitted for further evaluation and management - Past Medical/Surgical History Diabetic: No -: Rheumatoid arthritis -: GERD -: HTN -: Stage IV lung cancer -: CAD, chronic diastolic CHF -: Chronic pericardial effusion-Chronic Pericarditis -: Hypothyroidism -: Depression with anxiety -: GERD with history of Haque's esophagus -: Chronic pain with pain pump -: Chronic steroid use -: Chronic renal disease stage 3 -: Hysterectomy -: Total L knee replacement -: lap mehul, lap appy -: pain pump R abdomen -: L lobe thyroidectomy -: R Upper lung lobectomy -: tonsillectomy -: 3 corneal transplants left Psychosocial/ Personal History: Patient lives at home - Family History Father -: Heart disease, Other (see notes) Notes: rheumatoid arthritis Mother -: Cancer Notes: : breast and throat ca Brother -: Cancer Notes: 2 brothers from ca lung ca, colon ca Sister -: Cancer Notes: lung ca - Social History Smoking Status: Former smoker Alcohol use: No CD- Drugs: No Caffeine use: Yes Place of Residence: Home <Brian Bliss - Last Filed: 06/18/20 20:07> Date of Service: 06/19/20 Home medications list reviewed: Yes - Family History Family History: Reviewed- Non-Contributory <Vik Acosta - Last Filed: 06/19/20 11:21> Allergies adhesive tape Allergy (Verified 06/18/20 21:23) itchiness and blister celecoxib [From Celebrex] Allergy (Verified 06/18/20 21:23) water retention, swelling meperidine [From Demerol] Allergy (Verified 06/18/20 21:23) Hives Home Medications: Sertraline [Zoloft*] 50 mg PO BEDTIME 01/28/19 Temazepam 30 mg PO BEDTIME 01/28/19 Trazodone HCl [Desyrel] 100 mg PO BID 01/28/19 Gabapentin 400 mg PO DAILY 03/17/19 Levothyroxine [Synthroid*] 50 mcg PO DAILY 03/17/19 Ipratropium/Albuterol Sulfate [Iprat-Albut 0.5-3(2.5) mg/3 ml] 3 ml NEB Q4H PRN 06/06/19 Metoprolol Succinate [Toprol Xl*] 50 mg PO BID 06/06/19 Ondansetron [Zofran (Odt)*] 4 mg PO Q8HP PRN 06/06/19 Diphenox/Atropine [Lomotil*] 1 tab PO QID PRN 11/06/19 Benzonatate [Tessalon Perle*] 100 mg PO Q6HP PRN #15 cap 11/08/19 Levalbuterol HCl [Xopenex] 3 ml IH TID PRN #90 vial.neb 11/08/19 Acetam/Caff/Butal [Fioricet*] 1 tab PO BID PRN 12/07/19 Furosemide [Lasix*] 40 mg PO DAILY 12/07/19 Potassium Chloride 20 meq PO SEECOM 12/07/19 Dexlansoprazole [Dexilant] 60 mg PO DAILY 06/18/20 predniSONE [Prednisone*] 5 mg PO DAILY 06/18/20 predniSONE [Deltasone*] 10 mg PO DAILY #7 tab 06/19/20 Review of Systems Respiratory: Pleuritic Pain Cardiovascular: Chest Pain Gastrointestinal: Nausea, Vomiting <Brian Bliss - Last Filed: 06/18/20 20:07> Physical Examination - Physical Exam General: Alert, In no apparent distress, Oriented x3 HEENT: Atraumatic, Normocephalic, PERRLA, Other (Mucous membranes dry) Neck: Supple, No LAD Respiratory: Clear to auscultation bilaterally, Normal air movement Cardiovascular: Normal pulses, Regular rate/rhythm, Normal S1 S2 Capillary refill: <2 Seconds Gastrointestinal: Normal bowel sounds, Soft and benign, No tenderness, No masses, No rebound Musculoskeletal: No contractures, No erythema, No tenderness Integumentary: No tenderness/swelling, No erythema, No warmth Neurological: Normal speech, Normal strength at 5/5 x4 extr, Normal tone, Sensation intact - Studies Laboratory Data (last 24 hrs) 06/18/20 18:00: PT 11.4, INR 0.97 06/18/20 18:00: WBC 5.9, Hgb 11.0 L, Hct 33.2 L, Plt Count 144 L 06/18/20 18:00: Sodium 142, Potassium 4.0, BUN 34 H, Creatinine 2.56 H, Glucose 85, Magnesium 2.0, Total Bilirubin 0.3, AST 14 L, ALT 22, Alkaline Phosphatase 85 <Brian Bliss - Last Filed: 06/18/20 20:07> - Studies Laboratory Data (last 24 hrs) 06/18/20 18:00: PT 11.4, INR 0.97 06/18/20 18:00: WBC 5.9, Hgb 11.0 L, Hct 33.2 L, Plt Count 144 L 06/18/20 18:00: Sodium 142, Potassium 4.0, BUN 34 H, Creatinine 2.56 H, Glucose 85, Magnesium 2.0, Total Bilirubin 0.3, AST 14 L, ALT 22, Alkaline Phosphatase 85 <Vik Acosta - Last Filed: 06/19/20 11:21> Assessment and Plan - Plan Assessment Chest pain rule out ACS Acute kidney injury superimposed on chronic kidney disease stage 4 Chronic diastolic congestive heart failure Hypertension Hypothyroidism GERD Rheumatoid arthritis Chronic pain Lung cancer Plan Chest pain rule out ACS: Will trend troponins, monitor on telemetry. Echocardiogram ordered, cardiology consult ordered. DVT prophylaxis heparin 5000 units subcutaneous twice daily. Acute kidney injury superimposed on chronic kidney disease stage 4: Nephrology consult in place, patient appears dry and also admits to NSAID use. Will provide gentle hydration. Renal ultrasound ordered. Chronic diastolic congestive heart failure: Obtain and continue home medications. Last echo shows ejection fraction 67%. Patient with history of pericardial effusion secondary to rheumatoid arthritis. Hypertension: Obtain and continue home medications. Hypothyroidism: Obtain and continue home medications. GERD: Obtain and continue home medications. Rheumatoid arthritis: Obtain and continue home medications. Chronic pain: Patient within the bowel. Will provide patient with p.r.n. morphine. Lung cancer: Patient has follow up appointments with her surgeon and oncologist. This will be further managed on outpatient basis. Discharge Plan: Home Plan to discharge in: 24 Hours - Advance Directives Does patient have a Living Will: Yes Does patient have a Durable POA for Healthcare: Yes - Code Status/Comfort Care Code Status Assessed: Yes (DNR) Critical Care: No Time Spent Managing Pts Care (In Minutes): 55 <Brian Bliss - Last Filed: 06/18/20 20:07> - Plan Case discussed in detail with nurse practitioner. Agree with evaluation, assessment and plan of care. Cardiac enzymes unremarkable. Case discussed with nephrology. Renal ultrasound unremarkable shows no stone. Case discussed with cardiology. No further intervention required. Please see discharge summary for details. <Vik Acosta - Last Filed: 06/19/20 11:21>
[2020-06-18] MEDS ORDERED: PROMETHAZINE INJ 25 MG/ML AMP IV PRN (21:18)
[2020-06-18] MEDS ORDERED: NA CHLORIDE 0.9% 1,000 ML IV SCH (21:18)
[2020-06-18] MEDS ORDERED: ACETAMINOPHEN 500 MG TAB PO PRN (21:18)
[2020-06-18] MEDS ORDERED: ONDANSETRON 4 MG/2 ML VIAL IV PRN (21:18)
[2020-06-18] MEDS: HEPARIN 5000 UNIT/ML 1 ML VIAL SQ SCH (21:18)
[2020-06-18] MEDS ORDERED: MORPHINE 2 MG/ML SYR IV PRN (21:18)
[2020-06-18] MEDS ORDERED: MORPHINE 2 MG/ML SYR IV ONE (22:03)
[2020-06-18] MEDS ORDERED: HOME MED 1 EA UNK (Ipratropium/Albuterol Sulfate [Iprat-Albut 0.5-3(2.5) Mg/3 Ml] 3 ML) NEB PRN (22:53)
[2020-06-18] MEDS ORDERED: LEVALBUTEROL 0.63 MG/3 ML NEB IH PRN (22:53)
[2020-06-18] MEDS ORDERED: BENZONATATE 100 MG CAP PO PRN (22:53)
[2020-06-18] MEDS ORDERED: ACETAMIN/CAFFEINE/BUTALB TAB PO PRN (22:53)
[2020-06-18 23:02] VITALS: BMI 42.3
[2020-06-18] MEDS ORDERED: ALBUTEROL 2.5 MG/3 ML NEB SOL IH PRN (23:04)
[2020-06-18] MEDS ORDERED: IPRATROPIUM BROM 0.5MG/2.5ML NEB PRN (23:27)
[2020-06-18] MEDS ORDERED: ALBUTEROL 2.5 MG/3 ML NEB SOL NEB PRN (23:27)
[2020-06-18] MEDS: TRAZODONE 50 MG TABLET PO SCH (23:51)
[2020-06-19 00:24] LABS: Urine Appearance CLEAR; Urine Bilirubin NEGATIVE (NEG); Urine Blood NEGATIVE (NEG); Urine Color YELLOW; Urine Glucose NEGATIVE (NEG); Urine Protein TRACE (NEG); Urine Specific Gravity 1.015 (1.005-1.030); Urine Urobilinogen 0.2 mg/dL (0.2-1.0)
[2020-06-19 00:31] LABS: Urine Microscopic Reflex ORDER UMIC
[2020-06-19 00:57] LABS: Urine Bacteria <20 /HPF (<20); Urine Culture Reflex Order NOT NEEDED; Urine RBC <5 /HPF (NONE SEEN)
[2020-06-19 01:20] VITALS: O2SAT 96
[2020-06-19 06:04] LABS: Basophils % 0.4 % (0-1.3); Hematocrit 31.3 % (36.0-45.0); Lymphocytes % 38.4 % (15.3-44.8); MPV 8.4 fL (7.6-11.3)
[2020-06-19 06:16] LABS: Potassium 4.3 mmol/L (3.5-5.1)
[2020-06-19] MEDS ORDERED: PANTOPRAZOLE 40MG TABLET PO SCH (06:30)
--- NOTE | 2020-06-19 07:05 | EKG ---
Test Date: 2020-06-18 Test Time: 17:12:35 Outer Diameter Technician: BRITTNI MEASUREMENT RESULTS: Intervals: Rate: 80 NV: 156 QRSD: 82 QT: 368 QTc: 424 Congers: P: 45 NV: 156 QRS: 66 T: 51 INTERPRETIVE STATEMENTS: Normal sinus rhythm Normal ECG Compared to ECG 04/02/2020 15:18:12 No significant changes Electronically Signed On 06-19-20 07:03:49 CDT by [employer]
[2020-06-19] MEDS ORDERED: LEVOTHYROXINE SOD 0.05 MG TABLET PO SCH (07:30)
--- NOTE | 2020-06-19 07:48 | P.CNS ---
Date of Consult: 06/19/20 Reason for Consult: ROSALVA/ CKD Requesting Physician: Vik Acosta Primary Care Provider: Dr. Farris, Nephrology- Dr. Lam, Cardiology- Dr. Goddard Chief Complaint: Chest pain History of Present Illness: 54-year-old female with history of lung cancer, chronic kidney disease, chronic diastolic congestive heart failure, COPD, rheumatoid arthritis, IBD, hypothyroidism presents emergency department for left-sided chest pain. Patient reports pain feels like it is underneath her redness and is a grabbing/pulling pain. Patient denies similar pain in the past, states pain is exacerbated by deep breath or coughing. 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 Last echocardiogram in November 2019 shows no pericardial effusion and a left ventr icular ejection fraction of 67%. Patient also with CKD stage IV baseline creatinine around 2 has gone up slightly to 2.6. GFR baseline around 25 is now down to 19. Patient does admit to having a moderate amount of nausea vomiting over the course of the last few days as well as taking ibuprofen last 2 nights for headache. Patient last female was approximately 1 year ago, had a recent PET scan that showed that she is no longer in remission that she is not began chemo, radiation, surgery at this time. Initial troponin negative, chest x-ray unremarkable. ED provider wishes to admit patient for further evaluation and management of chest pain and ROSALVA on CKD. 19:35 This 54 yrs old Female presents to ER via Wheelchair with complaints of Chest jr8 Pain. 19:38 The patient or guardian reports chest pain that is located primarily in the left jr8 lateral anterior chest. Onset: suddenly, 2 day(s) ago. The pain does not radiate. Associated signs and symptoms: The patient has no apparent associated signs or symptoms. The chest pain is described as sharp. Duration: The patient or guardian reports multiple episodes, that are intermittent, that wax and wane. Modifying factors: The symptoms are alleviated by nothing. the symptoms are aggravated by movement. Severity of pain: At its worst the pain was mild in the emergency department the pain is unchanged. The patient has not experienced similar symptoms in the past. The patient has not recently seen a physician. Allergies adhesive tape Allergy (Verified 06/18/20 21:23) itchiness and blister celecoxib [From Celebrex] Allergy (Verified 06/18/20 21:23) water retention, swelling meperidine [From Demerol] Allergy (Verified 06/18/20 21:23) Hives Home medications list reviewed: Yes Home Medications: Sertraline [Zoloft*] 50 mg PO BEDTIME 01/28/19 Temazepam 30 mg PO BEDTIME 01/28/19 Trazodone HCl [Desyrel] 100 mg PO BID 01/28/19 Gabapentin 400 mg PO DAILY 03/17/19 Levothyroxine [Synthroid*] 50 mcg PO DAILY 03/17/19 Ipratropium/Albuterol Sulfate [Iprat-Albut 0.5-3(2.5) mg/3 ml] 3 ml NEB Q4H PRN 06/06/19 Metoprolol Succinate [Toprol Xl*] 50 mg PO BID 06/06/19 Ondansetron [Zofran (Odt)*] 4 mg PO Q8HP PRN 06/06/19 Diphenox/Atropine [Lomotil*] 1 tab PO QID PRN 11/06/19 Benzonatate [Tessalon Perle*] 100 mg PO Q6HP PRN #15 cap 11/08/19 Levalbuterol HCl [Xopenex] 3 ml IH TID PRN #90 vial.neb 11/08/19 Acetam/Caff/Butal [Fioricet*] 1 tab PO BID PRN 12/07/19 Furosemide [Lasix*] 40 mg PO DAILY 12/07/19 Potassium Chloride 20 meq PO SEECOM 12/07/19 Dexlansoprazole [Dexilant] 60 mg PO DAILY 06/18/20 predniSONE [Prednisone*] 5 mg PO DAILY 06/18/20 predniSONE [Deltasone*] 10 mg PO DAILY #7 tab 06/19/20 - Past Medical/Surgical History Diabetic: No -: Rheumatoid arthritis -: GERD -: HTN -: Stage IV lung cancer -: CAD, chronic diastolic CHF -: Chronic pericardial effusion-Chronic Pericarditis -: Hypothyroidism -: Depression with anxiety -: GERD with history of Haque's esophagus -: Chronic pain with pain pump -: Chronic steroid use -: Chronic renal disease stage 3 -: Hysterectomy -: Total L knee replacement -: lap mehul, lap appy -: pain pump R abdomen -: L lobe thyroidectomy -: R Upper lung lobectomy -: tonsillectomy -: 3 corneal transplants left Psychosocial/ Personal History: Patient lives at home - Family History Father Medical History: Heart disease, Other (see notes) Notes: rheumatoid arthritis Mother Medical History: Cancer Notes: : breast and throat ca Brother Medical History: Cancer Notes: 2 brothers from ca lung ca, colon ca Sister Medical History: Cancer Notes: lung ca - Social History Smoking Status: Unknown if ever smoked Alcohol use: No CD- Drugs: No Caffeine use: Yes Place of Residence: Home Review of Systems 10-point ROS is otherwise unremarkable General: Weakness, Malaise Cardiovascular: Chest Pain, Edema Neurological: Weakness Physical Examination Temp Pulse Resp BP Pulse Ox 98.0 F 68 17 98/62 96 06/19/20 04:00 06/19/20 06:00 06/19/20 06:42 06/19/20 06:00 06/19/20 06:42 General: Oriented x3, Cooperative HEENT: Atraumatic Neck: Supple Respiratory: Clear to auscultation bilaterally, Normal air movement Cardiovascular: Regular rate/rhythm, Edema Gastrointestinal: Soft and benign, Non-distended Musculoskeletal: No clubbing, No contractures Integumentary: No rashes, No cyanosis Neurological: Normal speech Laboratory Data (last 24 hrs) 06/18/20 18:00: PT 11.4, INR 0.97 06/18/20 18:00: WBC 5.9, Hgb 11.0 L, Hct 33.2 L, Plt Count 144 L 06/18/20 18:00: Sodium 142, Potassium 4.0, BUN 34 H, Creatinine 2.56 H, Glucose 85, Magnesium 2.0, Total Bilirubin 0.3, AST 14 L, ALT 22, Alkaline Phosphatase 85 Imagings Data: EXAM DESCRIPTION: RADChest Single View06/18/2020 5:23 pm CLINICAL HISTORY: Chest pain COMPARISON: January 2020 FINDINGS: Left upper lobe rectangular opacity unchanged probably atelectasis The right lung appears clear of acute infiltrate Heart is normal size. A central venous line has its tip in the superior vena cava. Old rib fractures EXAM DESCRIPTION: RAD - Chest Pa And Lat (2 Views) - 06/19/2020 8:08 am CLINICAL HISTORY: follow up chest pain Chest pain. COMPARISON: Chest Single View dated 06/18/2020; Chest Single View dated 04/02/2020; Chest Single View dated 01/06/2020; Chest Single View dated 12/18/2019 FINDINGS: The lungs are clear. The heart is upper limit normal in size. Right- sided port catheter is in place. Several old right-sided rib fractures seen with trace right pleural thickening. EXAM DESCRIPTION: US - Renal Ultrasound-Complete - 06/19/2020 8:41 am CLINICAL HISTORY: ROSALVA Flank pain COMPARISON: Renal Ultrasound-Complete dated 11/29/2018 FINDINGS: Both kidneys are normal in size, shape and echotexture. The right kidney measures 8.6 x 4.7 x 4.0 cm. No hydronephrosis, focal mass or perinephric fluid. The left kidney measures 8.5 x 4.9 x 4.7 cm. No hydronephrosis, focal mass or perinephric fluid. The urinary bladder is incompletely distended without gross abnormality seen. IMPRESSION: Unremarkable renal sonogram. Conclusions/Impression: A/ CKD IV Hypocalcemia HTN with CKD/ CHF Diastolic CHF, chronic RA Stage IV Lung Cancer Anemia in chronic illness Thrombocytopenia P/ Continue current POC and Medications. Follow up renal imaging. Pain control as ordered. Low sodium diet. No NSAIDs. AM labs. Daily weight. Thank you kindly for the consultation. Case reviewed with Dr. Acosta.
--- NOTE | 2020-06-19 08:38 | P.DS ---
Admission Date: 06/18/20 Discharge Date: 06/19/20 Primary Care Provider: Dr. Farris, Nephrology- Dr. Lam, Cardiology- Dr. Goddard Disposition: ROUTINE DISCHARGE Discharge Condition: GOOD Reason for Admission: Chest pain Consultations: Cardiology-Dr. Goddard Procedures: CXR: COMPARISON: January 2020 FINDINGS: Left upper lobe rectangular opacity unchanged probably atelectasis The right lung appears clear of acute infiltrate Heart is normal size. A central venous line has its tip in the superior vena cava. Old rib fractures Renal US: FINDINGS: Both kidneys are normal in size, shape and echotexture. The right kidney measures 8.6 x 4.7 x 4.0 cm. No hydronephrosis, focal mass or perinephric fluid. The left kidney measures 8.5 x 4.9 x 4.7 cm. No hydronephrosis, focal mass or perinephric fluid. The urinary bladder is incompletely distended without gross abnormality seen. IMPRESSION: Unremarkable renal sonogram. Follow up CXR: COMPARISON: Chest Single View dated 06/18/2020; Chest Single View dated 04/02/2020; Chest Single View dated 01/06/2020; Chest Single View dated 12/18/2019 FINDINGS: The lungs are clear. The heart is upper limit normal in size. Right- sided port catheter is in place. Several old right-sided rib fractures seen with trace right pleural thickening. Medical Problem List: Left-sided chest pain likely pleurisy Acute kidney injury superimposed on chronic kidney disease stage 4 Chronic diastolic congestive heart failure Hypertension Hypothyroidism GERD Rheumatoid arthritis on chronic steroids Chronic pain History of lung cancer with prior right upper lobe lobectomy Depression with anxiety Brief History of Present Illness: Date of Service: 06/18/20 Primary Care Provider: Dr. Farris, Nephrology- Dr. Lam, Cardiology- Dr. Goddard Reason for admission: Chest pain History of Present Illness: 54-year-old female with history of lung cancer, chronic kidney disease, chronic diastolic congestive heart failure, COPD, rheumatoid arthritis, IBD, hypothyroidism presents emergency department for left-sided chest pain. Patient reports pain feels like it is underneath her redness and is a grabbing/pulling pain. Patient denies similar pain in the past, states pain is exacerbated by deep breath or coughing. 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 Last echocardiogram in November 2019 shows no pericardial effusion and a left ventricular ejection fraction of 67%. Patient also with CKD stage IV baseline creatinine around 2 has gone up slightly to 2.6. GFR baseline around 25 is now down to 19. Patient does admit to having a moderate amount of nausea vomiting over the course of the last few days as well as taking ibuprofen last 2 nights for headache. Patient last female was approximately 1 year ago, had a recent PET scan that showed that she is no longer in remission that she is not began chemo, radiation, surgery at this time. Initial troponin negative, chest x-ray unremarkable. ED provider wishes to admit patient for further evaluation and management of chest pain and ROSALVA on CKD. Hospital Course: Patient presented with left-sided chest pain. It was mainly to the lower left rib region to the mid axillary line. Patient with multiple risk factors. Patient admitted for further evaluation and treatment. Cardiac enzymes unremarkable. Patient seen and evaluated by Cardiology. Cardiology felt this was very atypical. Likely pleurisy. Other consideration may be atelectasis. Recommend incentive spirometer at discharge. Patient may continue with Xopenex to be use as needed for shortness of breath. At discharge will recommend to increase prednisone 10 mg daily for 7 days then she may continue with her regular dose of prednisone 5 mg daily. Patient on chronic steroids for her rheumatoid arthritis. Patient is seen by oncology due to her history of lung cancer with prior right upper lobe lobectomy. She is expected to see Oncology for follow up PET-CT scan soon. She is also follow up with her CV surgeon. Patient with acute on chronic renal disease stage IV. Spoke with nephrology. Nephrology wanted to rule out kidney stone. Urinalysis unremarkable. Ultrasound performed. No evidence of kidney stone noted at this time. Recommended no further use of nonsteroidal anti-inflammatories. Future medications will need to be renally dose. Patient with chronic diastolic CHF. Prior echocardiogram 67%. Patient seen by Cardiology. No further intervention required at this time. Recommend to continue a 1500 cc per day fluid restriction and low-salt diet. Patient may continue with Lasix 40 mg daily with potassium supplementation. Adjustments may be required. This can be done with the help of her ampoule inspector or insurance follow up specialist. Patient with hypertension. This has remained stable. Recommend to maintain blood pressure less than 150/80. Patient takes Toprol-XL 50 mg twice daily. Recommend to monitor blood pressure daily. May need to hold blood pressure medication if systolic less than 110. Further adjustment in medication may be required. Recommend follow up with her PCP or cardiology to further address. Patient with hypothyroidism. This has remained stable. At discharge she will continue with her medication-levothyroxine 50 mcg daily. Patient with GERD. At discharge she will continue with her medication-Dexilant 60 mg daily. Patient with rheumatoid arthritis on chronic steroid. This has remained stable. Patient will follow up with Rheumatology. As mentioned above prednisone will be increased to 10 mg daily for 7 days then she will continue with prednisone 5 mg daily. Patient with chronic pain. Patient may continue with her current medications- Fioricet twice daily and gabapentin 400 mg daily.. Patient reports chronic GI issues. She has had some issues with diarrhea and constipation with prior C diff colitis. Her C diff has been treated in the past. Patient was seen by GI recently. She had been given Lomotil to be use as needed. Patient stable this time. Recommend follow up with her GI specialist to further address. Patient with depression anxiety. At discharge she will continue with her medication including Zoloft 50 mg daily, temazepam 30 mg at bedtime and trazodone 100 mg as directed. Vital Signs/Physical Exam: Temp Pulse Resp BP Pulse Ox 98.0 F 68 17 98/62 96 06/19/20 04:00 06/19/20 06:00 06/19/20 06:42 06/19/20 06:00 06/19/20 06:42 General: Alert, In no apparent distress, Oriented x3, Cooperative HEENT: Atraumatic Neck: Supple Respiratory: Other (Pain to the left lower rib cage region with inspiration) Cardiovascular: Normal pulses, Regular rate/rhythm Gastrointestinal: Normal bowel sounds, No tenderness, No masses, No rebound, No guarding Integumentary: No tenderness/swelling, No erythema, No warmth, No cyanosis Neurological: Normal speech, Normal strength at 5/5 x4 extr, Normal tone, Normal affect Laboratory Data at Discharge: WBC 5.1 K/uL (4.3-10.9) 06/19/20 05:53 Hgb 10.6 g/dL (12.0-15.0) L 06/19/20 05:53 Hct 31.3 % (36.0-45.0) L 06/19/20 05:53 Plt Count 148 K/uL (152-406) L 06/19/20 05:53 PT 11.4 SECONDS (9.5-12.5) 06/18/20 18:00 INR 0.97 06/18/20 18:00 Sodium 142 mmol/L (136-145) 06/19/20 05:53 Potassium 4.3 mmol/L (3.5-5.1) 06/19/20 05:53 BUN 35 mg/dL (7-18) H 06/19/20 05:53 Creatinine 2.49 mg/dL (0.55-1.3) H 06/19/20 05:53 Glucose 97 mg/dL (74-106) 06/19/20 05:53 Magnesium 2.0 mg/dL (1.8-2.4) 06/18/20 18:00 Total Bilirubin 0.3 mg/dL (0.2-1.0) 06/18/20 18:00 AST 14 U/L (15-37) L 06/18/20 18:00 ALT 22 U/L (12-78) 06/18/20 18:00 Alkaline Phosphatase 85 U/L (45-117) 06/18/20 18:00 Troponin I < 0.02 ng/mL (0.0-0.045) 06/19/20 05:53 Home Medications: Sertraline [Zoloft*] 50 mg PO BEDTIME 01/28/19 Temazepam 30 mg PO BEDTIME 01/28/19 Trazodone HCl [Desyrel] 100 mg PO BID 01/28/19 Gabapentin 400 mg PO DAILY 03/17/19 Levothyroxine [Synthroid*] 50 mcg PO DAILY 03/17/19 Ipratropium/Albuterol Sulfate [Iprat-Albut 0.5-3(2.5) mg/3 ml] 3 ml NEB Q4H PRN 06/06/19 Metoprolol Succinate [Toprol Xl*] 50 mg PO BID 06/06/19 Ondansetron [Zofran (Odt)*] 4 mg PO Q8HP PRN 06/06/19 Diphenox/Atropine [Lomotil*] 1 tab PO QID PRN 11/06/19 Benzonatate [Tessalon Perle*] 100 mg PO Q6HP PRN #15 cap 11/08/19 Levalbuterol HCl [Xopenex] 3 ml IH TID PRN #90 vial.neb 11/08/19 Acetam/Caff/Butal [Fioricet*] 1 tab PO BID PRN 12/07/19 Furosemide [Lasix*] 40 mg PO DAILY 12/07/19 Potassium Chloride 20 meq PO SEECOM 12/07/19 Dexlansoprazole [Dexilant] 60 mg PO DAILY 06/18/20 predniSONE [Prednisone*] 5 mg PO DAILY 06/18/20 predniSONE [Deltasone*] 10 mg PO DAILY #7 tab 06/19/20 New Medications: predniSONE [Deltasone*] 10 mg PO DAILY #7 tab Patient Discharge Instructions: 1. Follow up with her PCP in 1 week to follow up this hospitalization. 2. Patient presented with left-sided chest pain. It was mainly to the lower left rib region to the mid axillary line. Patient with multiple risk factors. Patient admitted for further evaluation and treatment. Cardiac enzymes unremarkable. Patient seen and evaluated by Cardiology. Cardiology felt this was very atypical. Likely pleurisy. Other consideration may be atelectasis. Recommend incentive spirometer at discharge. At discharge will recommend to increase prednisone 10 mg daily for 7 days then she may continue with her regular dose of prednisone 5 mg daily. Patient takes prednisone for her rheumatoid arthritis. Patient may also continue with her Xopenex to be use as needed for shortness of breath. Patient is seen by oncology due to her history of lung cancer with prior right upper lobe lobectomy. She is expected to see Oncology for follow up PET-CT scan soon. She is also follow up with her CV surgeon. 3. Patient with acute on chronic renal disease stage IV. Spoke with nephrology. Nephrology wanted to rule out kidney stone. Urinalysis unremarkable. Ultrasound performed. No evidence of kidney stone noted at this time. Recommended no further use of nonsteroidal anti- inflammatories. Future medications will need to be renally dose. 4. Patient with chronic diastolic CHF. Prior echocardiogram 67%. Patient seen by Cardiology. No further intervention required at this time. Recommend to continue a 1500 cc per day fluid restriction and low-salt diet. Patient may continue with Lasix 40 mg daily with potassium supplementation. Adjustments may be required. This can be done with the help of her ampoule inspector or insurance follow up specialist. 5. Patient with hypertension. This has remained stable. Recommend to maintain blood pressure less than 150/80. Patient takes Toprol-XL 50 mg twice daily. Recommend to monitor blood pressure daily. May need to hold blood pressure medication if systolic less than 110. Further adjustment in medication may be required. Recommend follow up with her PCP or cardiology to further address. 6. Patient with hypothyroidism. This has remained stable. At discharge she will continue with her medication-levothyroxine 50 mcg daily. 7. Patient with GERD. At discharge she will continue with her medication- Dexilant 60 mg daily. 8. Patient with rheumatoid arthritis on chronic steroid. This has remained stable. Patient will follow up with Rheumatology. As mentioned above prednisone will be increased to 10 mg daily for 7 days then she will continue with prednisone 5 mg daily. 9. Patient with chronic pain. Patient may continue with her current medications-Fioricet twice daily and gabapentin 400 mg daily.. 10. Patient reports chronic GI issues. She has had some issues with diarrhea and constipation with prior C diff colitis. Her C diff has been treated in the past. Patient was seen by GI recently. She had been given Lomotil to be use as needed. Patient stable this time. Recommend follow up with her GI specialist to further address. 11. Patient with depression anxiety. At discharge she will continue with her medication including Zoloft 50 mg daily, temazepam 30 mg at bedtime and trazodone 100 mg as directed. Diet: Renal Activity: Ad moe Time spent managing pt's care (in minutes): 55
[2020-06-19] MEDS: HEPARIN 5000 UNIT/ML 1 ML VIAL SQ SCH (09:00)
[2020-06-19] MEDS ORDERED: HOME MED 1 EA UNK (Dexlansoprazole [Dexilant] 60 MG) PO SCH (09:00)
[2020-06-19] MEDS ORDERED: NACHLORIDE 0.45% 1,000 ML IV SCH (09:00)
[2020-06-19] MEDS ORDERED: VITAMIN D 5,000 UNIT CAP PO SCH (09:00)
[2020-06-19] MEDS ORDERED: predniSONE 5 MG TAB PO SCH ×2 (09:00)
[2020-06-19] MEDS ORDERED: GABAPENTIN 400 MG CAP PO SCH (09:00)
[2020-06-19] MEDS ORDERED: METOPROLOL XL 50 MG TAB PO SCH (09:00)
--- NOTE | 2020-06-19 09:13 | RAD REPORT ---
EXAM DESCRIPTION: RAD - Chest Pa And Lat (2 Views) - 06/19/2020 8:08 am CLINICAL HISTORY: follow up chest pain Chest pain. COMPARISON: Chest Single View dated 06/18/2020; Chest Single View dated 04/02/2020; Chest Single View dated 01/06/2020; Chest Single View dated 12/18/2019 FINDINGS: The lungs are clear. The heart is upper limit normal in size. Right-sided port catheter is in place. Several old right-sided rib fractures seen with trace right pleural thickening.
--- NOTE | 2020-06-19 09:23 | RAD REPORT ---
EXAM DESCRIPTION: US - Renal Ultrasound-Complete - 06/19/2020 8:41 am CLINICAL HISTORY: ROSALVA Flank pain COMPARISON: Renal Ultrasound-Complete dated 11/29/2018 FINDINGS: Both kidneys are normal in size, shape and echotexture. The right kidney measures 8.6 x 4.7 x 4.0 cm. No hydronephrosis, focal mass or perinephric fluid. The left kidney measures 8.5 x 4.9 x 4.7 cm. No hydronephrosis, focal mass or perinephric fluid. The urinary bladder is incompletely distended without gross abnormality seen. IMPRESSION: Unremarkable renal sonogram.
[2020-06-19] MEDS: TRAZODONE 50 MG TABLET PO SCH (09:40)
[2020-06-19 12:10] VITALS: BP 114/58; TEMP 97.8
[2020-06-19] MEDS ORDERED: HEPARIN 500 UNIT/5 ML SYR IV PRN (12:19)
[2020-06-19] MEDS ORDERED: SERTRALINE HCL 50 MG TAB PO SCH (21:00)
[2020-06-19] MEDS ORDERED: TEMAZEPAM 15 MG CAP PO SCH (21:00)
--- NOTE | 2020-06-20 10:43 | ECHO ---
HEIGHT: 5 ft 3 in WEIGHT: 238 lb 9.6 oz DATE OF STUDY: 06/19/[address]: Brian Bliss NP 2-DIMENSIONAL: YES M.MODE: YES DOPPLER: YES COLOR FLOW: YES TDS: NO PORTABLE: NO DEFINITY: NO BUBBLE STUDY: NO DIAGNOSIS: CHEST PAIN, HISTORY PERICARDIAL EFFUSION CARDIAC HISTORY: CATHERIZATION: NO SURGERY: NO PROSTHETIC VALVE: NO PACEMAKER: NO MEASUREMENTS (cm) DIASTOLIC (NORMALS) SYSTOLIC (NORMALS) IVSd 1.1 (0.6-1.2) LA Diam 3.5 (1.9-4.0) LVEF 48% LVIDd 4.6 (3.5-5.7) LVIDs 3.5 (2.0-3.5) %FS 24% LVPWd 1.1 (0.6-1.2) Ao Diam 2.7 (2.0-3.7) 2 DIMENSIONAL ASSESSMENT: RIGHT ATRIUM: NORMAL LEFT ATRIUM: NORMAL RIGHT VENTRICLE: NORMAL LEFT VENTRICLE: NORMAL TRICUSPID VALVE: MITRAL VALVE: PULMONIC VALVE: NORMAL AORTIC VALVE: NORMAL PERICARDIAL EFFUSION: MILD AORTIC ROOT: NORMAL LEFT VENTRICULAR WALL MOTION: NORMAL DOPPLER/COLOR FLOW: NORMAL COMMENTS: NORMAL LEFT VENTRICULAR EJECTION FRACTION 55-60% WITH NORMAL WALL MOTION. MILD TRICUSPID AND MITRAL REGURGITATION. MILD PERICARDIAL EFFUSION. TECHNOLOGIST: Madan MARTINEZ
--- NOTE | 2020-06-23 08:58 | CON ---
Date of Consultation: 06/19/2020 Reason For Consultation: Chest pain. History Of Present Illness: The patient is a 54-year-old woman with history of metastatic lung cance r, hypertension, COPD, Haque's syndrome. She is a do not resuscitate. She has had multiple issues with chest pain that sounded pleuritic and may be pericarditis in the past. At one point, she took colchicine and anti-inflammatory and steroids for that. She remains under treatment and she was supp osed to be in remission from her lung cancer, but now there are some new lesions appearing on CT scan s and PET scan. Her chest pain is very sharp, stabbing, very left lateral underneath the left breast without any nausea, vomiting, diaphoresis, PND, orthopnea, pedal edema, palpitation, or syncope. Howard patterson has a negative troponin. Past Medical History: As stated above. Allergies: SHE IS ALLERGIC TO DEMEROL AND TAPE. Review of Systems: Negative. Social History: Negative. Family History: Negative. Medications: At home include Dexilant, metoprolol, prednisone, Lomotil, Toprol, Lasix, and Neurontin . Physical Examination: General: She was in no acute distress. Vital Signs: Stable. She is afebrile. HEENT: Negative. Neck: Supple without any bruit, lymphadenopathy, JVD, or thyromegaly. Chest: Clear. Cardiac: Regular rhythm and rate. No murmurs, gallops, or rubs. Abdomen: Benign. Extremities: No clubbing, cyanosis, or edema. Diagnostic Data: Fairly unremarkable except for the creatinine of 2.56. Impression And Plan: 1.Atypical chest pain and it is pleuritic. Echocardiogram is pending. I do not think we need to do any further cardiac workup for now. 2.Hypertension, well controlled. 3.Chronic obstructive pulmonary disease. 4.Haque's syndrome. 5.Lung cancer, metastatic. 6.Renal failure. She sees Dr. Diaz. Renal consultation is pending. We will see what her echo s hows before making any further decisions. OBDULIA/ANUPAM Voice ID: [id number] Report ID: [id number]
== END 2020-06-19 13:49 | disposition home or self-care (01) ==
LOC: ER 16:44 → ERHOLD 19:57 → 2ND 20:48
PROVIDERS: ADMIT Family Medicine; ATTEND Family Medicine
DX: R07.89 Other chest pain (principal); N17.9 Acute kidney failure, unspecified; I13.0 Hypertensive heart and chronic kidney disease with heart failure and stage 1 through stage 4 chronic kidney disease, or unspecified chronic kidney disease; N18.4 Chronic kidney disease, stage 4 (severe); I50.32 Chronic diastolic (congestive) heart failure; E03.9 Hypothyroidism, unspecified; Z20.828 Contact with and (suspected) exposure to other viral communicable diseases; K21.9 Gastro-esophageal reflux disease without esophagitis; M06.9 Rheumatoid arthritis, unspecified; Z79.52 Long term (current) use of systemic steroids; F41.8 Other specified anxiety disorders; J44.9 Chronic obstructive pulmonary disease, unspecified; K22.70 Barrett's esophagus without dysplasia; Z66 Do not resuscitate; C34.90 Malignant neoplasm of unspecified part of unspecified bronchus or lung; K58.9 Irritable bowel syndrome, unspecified; G89.29 Other chronic pain; I31.9 Disease of pericardium, unspecified; Z96.652 Presence of left artificial knee joint; Z94.7 Corneal transplant status; E83.51 Hypocalcemia; D63.1 Anemia in chronic kidney disease; D69.6 Thrombocytopenia, unspecified; Z87.891 Personal history of nicotine dependence
CPT/HCPCS: 93005; 93306; 87040 ×2; 85025 ×2; 80048 ×2; 36415; 83735; 85610; 80076; 85652; 84484 ×3; 83880; 86140; 71045; 71046; 76770; 96375; 96374; 99285; U0002; J2550; J1644 ×2; J3010; J2270 ×3; J1642; J7040; J7030; J2405 ×2; G0378 ×3; 81003; 81015; J7512

== ENCOUNTER 2020-12-06 12:13 | Emergency (ER) | payer OTHER ==
--- OUTSIDE RECORDS SUMMARY | 2020-12-06 12:17 | XMS REPORT | Continuity of Care Document ---
:1965 Author Organization [facility] t Address [address] [place] [address] Care Team Providers Name Role Phone Ashely ORDONEZ Primary Care Physician EVGENY Attending Clinician Unavailable LINDA Attending Clinician Unavailable THEA Attending Clinician Unavailable Ryley Hammond Attending Clinician PRABHJOT Attending Clinician Unavailable SARI Attending Clinician Unavailable THEA Admitting Clinician Unavailable SARI Admitting Clinician Unavailable Problems Condition Condition Condition Status Onset Resolution Last Treating Co mments Source Name Details Category Date Date Treatment Clinician Date Chronic Chronic Disease Active [facility] disorder disorder 00:00: Medica l 00 Center Malfunctio Malfunctio Disease Active [facility] of n of [facility]- [facility] - intratheca intratheca 00:00: Me dical l infusion l infusion 00 Ce nter pump, pump, initial initial encounter encounter 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 00:00: n of right of right 00 lung lung Rheumatoid Rheumatoid Disease Active M D arthritis arthritis 06-02 Stu rso 00:00: n 00 Allergies, Adverse Reactions, Alerts Allergy Allergy Status Severity Reaction(s) Onset Inactive Treating Comm ents Source Name Type Date Date Clinician Adhesive Propensi Active Rash [facility] - adverse 00:00: Medical reaction 00 Center s Celecoxi Propensi Active Swelling 2011-[address] [facility] b ty to 2-12 [facility] - adverse 00:00: Medical reaction 00 Center s Meperidi Propensi Active Hives [facility] to 6-18 [facility] - adverse 00:00: Medical reaction 00 Center s Family History Family Member Diagnosis Comments Start Date Stop Date Source Natural brother -Colon cancer And sarahy Natural mother -Breast cancer And ersgwendolyn Natural mother -Head and Neck And sarahy Natural sister -Thoracic or Lung MD [place] Social History Social Habit Start Date Stop Date Quantity Comments Source History SDOH [facility] - Alcohol Std Drinks [facility] History SDOH [facility] - Alcohol Binge Medical Jennifer ter Sex Assigned At [facility] Tobacco use and 2019-10-09 2019-10-09 Never used [facility] - exposure 00:00:00 00:00:00 [facility] Alcohol intake 2019-10-09 2019-10-09 Current [facility] St [facility] es - 00:00:00 00:00:00 non-drinker of Medical Ce nter alcohol (finding) Tobacco Comment 2019-10-08 2019-10-08 quit 23 years [facility] - 00:00:00 00:00:00 ago [facility] Center History SDOH 2019-10-08 2019-10-[address] [facility] - Alcohol Frequency 00:00:00 00:00:00 [facility] Cigarette 2018-06-02 2018-06-02 MD [facility]asco pack-years 00:00:00 00:00:00 Cigarettes smoked 2018-06-02 2018-06-02 MD Stu morales current (pack per 00:00:00 00:00:00 day) - Reported History of tobacco 1980-09-05 1999-08-05 Current smoker MD [place] use 00:00:00 00:00:00 Smoking Status Start Date Stop Date Source Former smoker 2019-10-09 00:00:00 2019-10-09 00:00:[address] [facility] Medications Ordered Filled Start Stop Current Ordering Indication Dosage Frequency Signature Comments Components Source Medication Medication Date Date Medication? Clinician (SIG) Name Name lisinopril- Yes 1{tbl} QD Take [address] hydroCHLORO 2-04 tablet by Javed es - thiazide 12:24: mouth Medical (PRINZIDE,Z 03 daily. Center ESTORETIC) 20-12.5 mg per tablet TOBRAMYCIN 2020-0 Yes Apply to [facility] OPHT 2-04 eye(s). [facility] - 12:24: [...] 2020-0 Yes Take by [facility] succinate 2-04 mouth as [facility] - [...] 12:24: mouth Medical 24 hr 03 daily. Center capsule fentaNYL 2020-0 Yes 1{patch [...] Med ical 0.2-0.5 % 03 eye 2 Center ophthalmic (two) solution times daily. metoprolol 2020-0 Yes 50mg Q.5D Take [address] (LOPRESSOR) 2-04 by mouth 2 Maria kes - 50 MG 12:24: (two) Medical tablet 03 times Center daily. colestipol 2020-0 Yes 5g Q.5D Take [address] (COLESTID) 2-04 by mouth 2 Javed es - 5 gram 12:24: (two) Medical granules 03 times Center daily. colestipol 2018-0 Yes 1g Take 1 g MD (COLESTID) 9-28 by mouth Baldemar so 5 gram 15:13: daily. n granules 37 pantoprazol 2017-0 Yes 40mg Take 40 mg MD e 9-28 by mouth Anderso (PROTONIX) 15:13: daily with n 40 mg EC 37 breakfast. tablet polyethylen 20180 Yes constipatio 17g Take 17 g MD e glycol 9-28 n by mouth Anderso (MIRALAX) 15:13: daily. n 17 g packet 37 albuterol 0 Yes bronchospas 2{puff} Inhale 2 MD (VENTOLIN [...] 2018-0 Yes 1[drp] Administer MD E acetate 06-02 1 drop Anderso (PRED 15:11: into the [...] 00 (eight) release hours as tablet needed. tiZANidine 2014-0 Yes 4mg Take 4 mg MD (ZANAFLEX) 5-20 by mouth Baldemar so 4 mg tablet 00:00: twice n 00 daily. Procedures This patient has no known procedures. Plan of Care Planned Activity Planned Date Details Comments Source Future Scheduled 2020-05-[address] [facility] - Test 00:00:00 (#1) [code = [facility] INFLUENZA VACCINE (#1)] Future Scheduled 2014-03-[address] [facility] - Test 00:00:00 WELLNESS (YEAR 2 or Medical Center FIRST YEAR if no IPPE) [code = MEDICARE ANNUAL WELLNESS (YEAR 2 or FIRST YEAR if no IPPE)] Future Scheduled [address] [facility] - Test 00:00:00 (procedure) [code = Medical Center 09154935] Future Scheduled [address] [facility] [address] [facility] - Test 00:00:00 malignant neoplasm Medical C enter of cervix (procedure) [code = 386243977] Future Scheduled [address] [facility] - Test 00:00:00 malignant neoplasm Medical C enter of breast (procedure) [code = 187985287] Future Scheduled [address] [facility] - Test 00:00:00 malignant neoplasm Medical C enter of colon (procedure) [code = 557849574] Encounters Start End Encounter Admission Attending Care Care Encounter Source Date/Time Date/Time Type Type Clinicians Facility Department ID 2020-10-07 2020-10-07 Outpatient MICHELLE PEPPER [facility] [id number] [place] 00:00:00 00:00:[address] 2020-10-07 2020-10-07 Outpatient MICHELLE PEPPER [facility] [id number] [place] 00:00:00 00:00:[address] 2020-10-07 2020-10-07 Outpatient MICHELLE PEPPER [facility] [id number] [place] 00:00:00 00:00:[address] 2020-07-07 2020-07-07 Outpatient MICHELLE PEPPER [facility] [id number] [place] 00:00:00 00:00:[address] 2020-07-07 2020-07-07 Outpatient EVGENY [facility] [id number] [place] 00:00:00 00:00:[address] 2020-05-07 2020-05-07 Outpatient EVGENY [facility] [id number] [id number] [place] 00:00:00 00:00:[address] 2020-05-07 2020-05-07 Outpatient MICHELLE PEPPER [facility] [id number] [place] 00:00:00 00:00:[address] 2020-05-07 2020-05-07 Outpatient PEPPER [facility] [id number] [id number] [place] 00:00:00 00:00:[address] 2020-05-07 2020-05-07 Outpatient MICHELLE PEPPER [facility] [id number] [place] 00:00:00 00:00:[address] 2020-03-14 2020-03-14 Outpatient [facility] [id number] [place] 00:00:00 00:00:[address] 2020-03-14 2020-03-14 Outpatient [facility] [id number] [place] 00:00:00 00:00:[address] 2020-02-05 2020-02-05 Outpatient MICHELLE PEPPER [facility] [id number] [place] 00:00:00 00:00:[address] 2020-02-05 2020-02-05 Outpatient MICHELLE PEPPER [facility] [id number] [place] 00:00:00 00:00:[address] 2020-01-25 2020-01-25 Outpatient LINDA [facility] [id number] [place] 00:00:00 00:00:00 JONE [address] 2020-01-25 2020-01-25 Outpatient LINDA, [facility] [id number] [place] 00:00:00 00:00:00 JONE [address] 2020-01-25 2020-01-25 Outpatient LINDA, [facility] [id number] [place] 00:00:00 00:00:00 JONE [address] 2020-01-08 2020-01-08 Outpatient COURTNEY SIDHU [facility] [id number] [place] 00:00:00 00:00:[address] 2020-01-03 2020-01-03 Outpatient THEA MIN [facility] [id number] [place] 00:00:00 00:00:[address] 2020-01-03 2020-01-03 Outpatient COURTNEY SIDHU [facility] [id number] [place] 00:00:00 00:00:[address] 2020-01-03 2020-01-03 Outpatient THEA MIN [facility] [id number] [place] 00:00:00 00:00:[address] 2020-01-03 2020-01-03 Outpatient COURTNEY SIDHU [facility] [id number] [place] 00:00:00 00:00:[address] 2020-01-03 2020-01-03 Outpatient COURTNEY SIDHU [facility] [id number] [place] 00:00:00 00:00:[address] 2019-10-30 2019-10-30 Outpatient COURTNEY SIDHU [facility] [id number] [place] 00:00:00 00:00:[address] 2019-10-30 2019-10-30 Outpatient COURTNEY SIDHU [facility] [id number] [place] 00:00:00 00:00:[address] 2019-10-05 2019-10-05 Office BRENDAN Balderas [id number] 10:32:20 14:51:51 Visit Percy AMBULATOR [id number] Ryley Y [id number] 2019-10-04 2019-10-04 Outpatient COURTNEY SIDHU [facility] [id number] [place] 00:00:00 00:00:[address] 2019-10-04 2019-10-04 Outpatient COURTNEY SIDHU [facility] [id number] [place] 00:00:00 00:00:[address] 2019-09-20 2019-09-20 Outpatient PRABHJOT, [facility] [id number] [place] 00:00:00 00:00:00 VIRIDIANA [address] 2019-07-16 2019-07-16 Outpatient MICHELLE PEPPER [facility] [id number] [place] 00:00:00 00:00:[address] 2019-06-29 2019-06-29 Outpatient LINDA [facility] [id number] [place] 00:00:00 00:00:00 JONE [address] 2019-05-29 2019-05-31 Inpatient NEASON, [facility] [id number] [place] 00:00:00 00:00:00 JERAMIE [address] Results Test Description Test Time Test Comments Results Result Sour e Comments CRISSY DYE, 2019-10-09 Reason for FINAL REPORT PATIENT NON-SPECIFIC, UP 08:26:00 exam:->Chronic ID: [id number] A TO 1 HOUR Pain fluoroscopic unit was utilized for a procedure performed in the operating room. No interpretation was requested. Please refer to the operative report regarding findings. Please refer to PACS for patient radiation dose information. Signed: Peri Linn Verified Date/Time: 10/09/2019 08:26:53 Reading Location: [facility] Radiology Reading Room
[2020-12-06 13:10] LABS: Basophils % 0.3 % (0-1.3); Hematocrit 37.3 % (36.0-45.0); Lymphocytes % 17.3 % (15.3-44.8); MPV 8.7 fL (7.6-11.3); RBC Red Blood Cell Count 4.06 M/uL (3.86-4.86)
[2020-12-06 13:16] LABS: BUN Blood Urea Nitrogen 26 mg/dL (7-18); Bicarbonate 29 mmol/L (21-32); Glucose Level 145 mg/dL (74-106); Potassium 4.1 mmol/L (3.5-5.1); Sodium Level 141 mmol/L (136-145); Troponin (Emerg Dept Use Only) < 0.02 ng/mL (0.0-0.045)
--- NOTE | 2020-12-06 13:56 | RAD REPORT ---
EXAM DESCRIPTION: CT - Head Brain Wo Cont - 12/06/2020 1:38 pm CLINICAL HISTORY: Headache COMPARISON: 2019 TECHNIQUE: Computed axial tomography of the head was obtained. IV contrast was not requested. All CT scans are performed using dose optimization technique as appropriate and may include automated exposure control or mA/KV adjustment according to patient size. FINDINGS: An intracranial bleed is not seen . The ventricles are normal in caliber. No extra-axial fluid collection is noted. Fluid within the sinuses/ mastoids is not seen. IMPRESSION: No acute intracranial abnormality is seen. If patient's symptoms persist MRI of the bra in would be recommended.
[2020-12-06] MEDS ORDERED: MORPHINE 4 MG/ML SYR ONE (13:58)
[2020-12-06] MEDS ORDERED: ONDANSETRON 4 MG/2 ML VIAL ONE (13:58)
--- NOTE | 2020-12-06 14:00 | RAD REPORT ---
EXAM DESCRIPTION: CT - Facial Bones W/ Mpr - 12/06/2020 1:38 pm CLINICAL HISTORY: Facial injury status post trauma. Facial pain COMPARISON: none TECHNIQUE: Computed axial tomography of the face was obtained. Coronal and sagittal reconstruction w as performed. All CT scans are performed using dose optimization technique as appropriate and may include automated exposure control or mA/KV adjustment according to patient size. FINDINGS: A fracture is not seen. A TMJ dislocation is not noted. The globes are intact. Fluid within the sinuses is not seen. IMPRESSION: Negative for a facial fracture.
--- NOTE | 2020-12-06 14:04 | RAD REPORT ---
EXAM DESCRIPTION: CT - C Spine Wo Con - 12/06/2020 1:38 pm CLINICAL HISTORY: Neck pain status post cervical injury COMPARISON: None. TECHNIQUE: Computed axial tomography of the cervical spine were obtained with sagittal and coronal r econstruction images generated and reviewed. All CT scans are performed using dose optimization technique as appropriate and may include automated exposure control or mA/KV adjustment according to patient size. FINDINGS: A cervical fracture is not seen. No dislocation. No high-grade stenosis is seen IMPRESSION: A cervical fracture is not seen. If the patient continues have symptoms to suggest spinal cord/spinal canal pathology then MRI would b e recommended.
--- NOTE | 2020-12-06 14:50 | EDPHYS ---
Physician Documentation [facility] Name: Anisha Lindsay Age: 55 yrs Sex: Female : 1965 Arrival Date: 12/06/2020 Time: 12:14 Bed 8 Private MD: ED Physician Ron Enriquez HPI: 12/06 14:46 This 55 yrs old Female presents to ER via EMS with complaints of CHRONIC PAIN.ma2 14:46 This 55 yrs old Female presents to ER via EMS with complaints of CHRONIC PAIN.ma2 14:46 This 55 yrs old Female presents to ER via EMS with complaints of facial PAIN. ma2 14:46 Context of injury: The problem was sustained at home. Onset: The symptoms/episode ma2 began/occurred suddenly, 1 hour(s) ago. Severity of symptoms: At their worst the symptoms were moderate, in the emergency department the symptoms are unchanged. The patient has not experienced similar symptoms in the past. tripped and fell hit right side of her face, here with facial pain, she states she does not have chest pain. Historical: - Allergies: 12:20 Adhesives; bp 12:20 Celebrex; bp 12:20 Demerol; bp - Home Meds: 12:20 trazodone 100 mg Oral tab 1 tab nightly [Active]; sertraline 100 mg Oral tab 1 tab bp nightly [Active]; Protonix 40 mg Oral TbEC 1 tab once daily [Active]; prednisone 20 mg Oral tab 1 tab 2 times per day [Active]; metoprolol tartrate 50 mg Oral tab 1 tab 2 times per day [Active]; levothyroxine 75 mcg tab 1 tab once daily [Active]; Lasix 40 mg Oral tab 1 tab as needed [Active]; gabapentin 400 mg Oral cap 1 cap BID PRN [Active]; albuterol sulfate 90 mcg/actuation Inhl HFAA 2 puffs as needed [Active]; Colestid Oral 1 packet as needed [Active]; FENTANYL PUMP [Active]; - PMHx: 12:20 Adenocarcinoma of the Lungs; Anxiety; CHF; COPD; CSF leak; Depression; Hypertension; bp Hypothyroidism; Myocardial infarction; osteo arthirtis; pericardial effusion; pericarditis; Renal Disease; Rheumatoid Arthritis; Stage 4 Lung Cencer- currently on Chemo; - Immunization history:: Adult Immunizations up to date. - Social history:: Smoking status: Patient denies any tobacco usage or history of. Patient/guardian denies using alcohol, street drugs, The patient lives with family. - Family history:: not pertinent. ROS: 14:46 Constitutional: Negative for fever, chills, and weight loss. ma2 14:46 All other systems are negative. Exam: 14:46 Constitutional: This is a well developed, well nourished patient who is awake, alert, ma2 and in no acute distress. Head/Face: Normocephalic, atraumatic. Eyes: Pupils equal round and reactive to light, extra-ocular motions intact. Lids and lashes normal. Conjunctiva and sclera are non-icteric and not injected. Cornea within normal limits. Periorbital areas with no swelling, redness, or edema. Chest/axilla: Normal chest wall appearance and motion. Nontender with no deformity. No lesions are appreciated. Cardiovascular: Regular rate and rhythm with a normal S1 and S2. No gallops, murmurs, or rubs. Normal PMI, no JVD. No pulse deficits. Respiratory: Lungs have equal breath sounds bilaterally, clear to auscultation and percussion. No rales, rhonchi or wheezes noted. No increased work of breathing, no retractions or nasal flaring. Abdomen/GI: Soft, non-tender, with normal bowel sounds. No distension or tympany. No guarding or rebound. No evidence of tenderness throughout. Skin: Warm, dry with normal turgor. Normal color with no rashes, no lesions, and no evidence of cellulitis. MS/ Extremity: Pulses equal, no cyanosis. Neurovascular intact. Full, normal range of motion. Neuro: Awake and alert, GCS 15, oriented to person, place, time, and situation. Cranial nerves II-XII grossly intact. Motor strength 5/5 in all extremities. Sensory grossly intact. Cerebellar exam normal. Normal gait. Vital Signs: 12:16 BP 176 / 90; Pulse 80; Resp 14; Temp 97.7; Pulse Ox 99% ; bp 13:48 BP 176 / 104; Pulse 82; Resp 20; Pulse Ox 95% ; rb3 14:45 BP 167 / 97; Pulse 80; Resp 21; Pulse Ox 98% ; rb3 Nicholas Coma Score: 14:46 Eye Response: spontaneous(4). Verbal Response: oriented(5). Motor Response: obeys ma2 commands(6). Total: 15. MDM: 12:29 Patient medically screened. ma2 14:46 Differential diagnosis: Contusion of Hematoma on Intracranial bleed- cerebral ma2 contusion. Data reviewed: vital signs, nurses notes. Counseling: I had a detailed discussion with the patient and/or guardian regarding: the historical points, exam findings, and any diagnostic results supporting the discharge/admit diagnosis, the presence of at least one elevated blood pressure reading (>120/80) during this emergency department visit, the need for outpatient follow up. Response to treatment: the patient's symptoms have markedly improved after treatment. 12/06 12:29 Order name: Basic Metabolic Panel; Complete Time: 14:15 ma2 12/06 12:29 Order name: CBC with Diff; Complete Time: 14:15 ma2 12/06 12:29 Order name: Troponin (emerg Dept Use Only); Complete Time: 14:15 ma2 12/06 13:07 Order name: CT Facial Bones W/O Con; Complete Time: 14:15 ma2 12/06 13:07 Order name: CT Head Brain wo Cont; Complete Time: 14:15 ma2 12/06 13:07 Order name: CT C Spine; Complete Time: 14:15 ma2 12/06 12:29 Order name: EKG; Complete Time: 12:30 ma2 12/06 12:29 Order name: Cardiac monitoring; Complete Time: 13:41 ma2 12/06 12:29 Order name: EKG - Nurse/Tech; Complete Time: 13:41 ma2 12/06 12:29 Order name: IV Saline Lock; Complete Time: 13:41 ma2 12/06 12:29 Order name: Labs collected and sent; Complete Time: 13:41 ma2 12/06 12:29 Order name: O2 Per Protocol; Complete Time: 12:42 ma2 12/06 12:29 Order name: O2 Sat Monitoring; Complete Time: 12:42 ma2 Administered Medications: 13:48 Drug: morphine 4 mg Route: IVP; Site: right antecubital; rb3 14:05 Follow up: Response: No adverse reaction; Pain is decreased rb3 13:48 Drug: Zofran (Ondansetron) 4 mg Route: IVP; Site: right antecubital; rb3 14:05 Follow up: Response: No adverse reaction rb3 Disposition: 12/06/20 14:49 Discharged to Home. Impression: Other slipping, tripping and stumbling and falls - with facial contusion on right side. - Condition is Stable. - Discharge Instructions: Contusion, [id number]. - Medication Reconciliation Form, Thank You Letter, Antibiotic Education, Prescription Opioid Use form. - Follow up: Private Physician; When: Tomorrow; Reason: If symptoms return. Signatures: Dispatcher [employer] EDMS Travon Carvajal RN RN bp Ron Enriquez MD MD ma2 Ellie Cohen RN RN rb3 Corrections: (The following items were deleted from the chart) 14:50 14:49 12/06/2020 14:49 Discharged to Home. Impression: Other slipping, tripping and ma2 stumbling and falls. Condition is Stable. Forms are Medication Reconciliation Form, Thank You Letter, Antibiotic Education, Prescription Opioid Use. Follow up: Private Physician; When: Tomorrow; Reason: If symptoms return. ma2 16:07 14:50 12/06/2020 14:49 Discharged to Home. Impression: Other slipping, tripping and bp stumbling and falls - with facial contusion on right side. Condition is Stable. Forms are Medication Reconciliation Form, Thank You Letter, Antibiotic Education, Prescription Opioid Use. Follow up: Private Physician; When: Tomorrow; Reason: If symptoms return. ma2
--- NOTE | 2020-12-06 14:50 | ER ---
Nurse's Notes [facility] Name: Anisha Lindsay Age: 55 yrs Sex: Female : 1965 Arrival Date: 12/06/2020 Time: 12:14 Bed 8 Private MD: Diagnosis: Other slipping, tripping and stumbling and falls-with facial contusion on right side Presentation: 12/06 12:16 Chief complaint: EMS states: CHRONIC PAIN. Coronavirus screen: At this time, the client bp does not indicate any symptoms associated with coronavirus-19. Ebola Screen: No symptoms or risks identified at this time. Initial Sepsis Screen: Does the patient meet any 2 criteria? No. Patient's initial sepsis screen is negative. Does the patient have a suspected source of infection? No. Patient's initial sepsis screen is negative. Risk Assessment: Do you want to hurt yourself or someone else? Patient reports no desire to harm self or others. Onset of symptoms is unknown. 12:16 Method Of Arrival: EMS: [facility] bp 12:16 Acuity: CHEN 4 bp Triage Assessment: 12:21 General: Appears in no apparent distress. uncomfortable, obese, Behavior is bp cooperative, appropriate for age, anxious. Pain: Complains of pain in back, buttocks, right leg and left leg. EENT: No deficits noted. Neuro: Level of Consciousness is awake, alert, obeys commands, Oriented to person, place, time, situation, Appropriate for age. Cardiovascular: No deficits noted. Respiratory: No deficits noted. GI: No signs and/or symptoms were reported involving the gastrointestinal system. : No signs and/or symptoms were reported regarding the genitourinary system. Derm: No deficits noted. Musculoskeletal: No deficits noted. Historical: - Allergies: 12:20 Adhesives; bp 12:20 Celebrex; bp 12:20 Demerol; bp - Home Meds: 12:20 trazodone 100 mg Oral tab 1 tab nightly [Active]; sertraline 100 mg Oral tab 1 tab bp nightly [Active]; Protonix 40 mg Oral TbEC 1 tab once daily [Active]; prednisone 20 mg Oral tab 1 tab 2 times per day [Active]; metoprolol tartrate 50 mg Oral tab 1 tab 2 times per day [Active]; levothyroxine 75 mcg tab 1 tab once daily [Active]; Lasix 40 mg Oral tab 1 tab as needed [Active]; gabapentin 400 mg Oral cap 1 cap BID PRN [Active]; albuterol sulfate 90 mcg/actuation Inhl HFAA 2 puffs as needed [Active]; Colestid Oral 1 packet as needed [Active]; FENTANYL PUMP [Active]; - PMHx: 12:20 Adenocarcinoma of the Lungs; Anxiety; CHF; COPD; CSF leak; Depression; Hypertension; bp Hypothyroidism; Myocardial infarction; osteo arthirtis; pericardial effusion; pericarditis; Renal Disease; Rheumatoid Arthritis; Stage 4 Lung Cencer- currently on Chemo; - Immunization history:: Adult Immunizations up to date. - Social history:: Smoking status: Patient denies any tobacco usage or history of. Patient/guardian denies using alcohol, street drugs, The patient lives with family. - Family history:: not pertinent. Screenin:27 Abuse screen: Denies threats or abuse. Denies injuries from another. Nutritional bp screening: No deficits noted. Tuberculosis screening: No symptoms or risk factors identified. Fall Risk None identified. Assessment: 12:25 General: SEE TRIAGE NOTE . bp 13:40 Reassessment: Pt in CT. rb3 13:49 Reassessment: Patient appears in no apparent distress at this time. No changes from rb3 previously documented assessment. 14:45 Reassessment: Patient appears in no apparent distress at this time. Patient and/or rb3 family updated on plan of care and expected duration. Pain level reassessed. Patient is alert, oriented x 3, equal unlabored respirations, skin warm/dry/pink. Vital Signs: 12:16 BP 176 / 90; Pulse 80; Resp 14; Temp 97.7; Pulse Ox 99% ; bp 13:48 BP 176 / 104; Pulse 82; Resp 20; Pulse Ox 95% ; rb3 14:45 BP 167 / 97; Pulse 80; Resp 21; Pulse Ox 98% ; rb3 Nicholas Coma Score: 14:46 Eye Response: spontaneous(4). Verbal Response: oriented(5). Motor Response: obeys ma2 commands(6). Total: 15. ED Course: 12:14 Patient arrived in ED. am2 12:15 Ron Enriquez MD is Attending Physician. ma2 12:17 Triage completed. bp 12:20 Arm band placed on. bp 12:27 Patient has correct armband on for positive identification. Bed in low position. Call bp light in reach. Side rails up X2. 13:16 Ellie Cohen, RN is Primary Nurse. rb3 13:39 CT Facial Bones W/O Con In Process Unspecified. EDMS 13:39 CT Head Brain wo Cont In Process Unspecified. EDMS 13:39 CT C Spine In Process Unspecified. EDMS 13:51 EKG done, by ED staff, reviewed by Ron Enriquez MD. Initial lab(s) drawn, by ED [facility] staff, sent to lab. Inserted saline lock: 20 gauge wrist, using aseptic technique. Blood collected. 13:52 Warm blanket given. Pillow given. 5 15:10 No provider procedures requiring assistance completed. IV discontinued, intact, rb3 bleeding controlled, No redness/swelling at site. Pressure dressing applied. Administered Medications: 13:48 Drug: morphine 4 mg Route: IVP; Site: right antecubital; rb3 14:05 Follow up: Response: No adverse reaction; Pain is decreased rb3 13:48 Drug: Zofran (Ondansetron) 4 mg Route: IVP; Site: right antecubital; rb3 14:05 Follow up: Response: No adverse reaction rb3 Outcome: 14:49 Discharge ordered by . ma2 15:10 Discharged to home ambulatory. rb3 15:10 Condition: stable 15:10 Discharge instructions given to patient, Instructed on discharge instructions, follow up and referral plans. Demonstrated understanding of instructions, follow-up care, Prescriptions given X none 16:07 Patient left the ED. bp Signatures: Dispatcher [employer] [facility] Jenna Ng [facility] Pia Tobin Brian, ALEX RN Ron Ferro MD MD ma2 Barber, Rebecca, RN RN rb3
[2020-12-06 19:27] VITALS: TEMP 97.7
[2020-12-06 19:33] VITALS: BP 167/97; O2SAT 98
== END 2020-12-06 16:07 | disposition home or self-care (01) ==
LOC: ER 12:13
DX: S00.83XA Contusion of other part of head, initial encounter (principal); W19.XXXA Unspecified fall, initial encounter; I11.0 Hypertensive heart disease with heart failure; I50.9 Heart failure, unspecified; C34.90 Malignant neoplasm of unspecified part of unspecified bronchus or lung; F41.9 Anxiety disorder, unspecified; J44.9 Chronic obstructive pulmonary disease, unspecified; F32.9 Major depressive disorder, single episode, unspecified; E03.9 Hypothyroidism, unspecified; I25.2 Old myocardial infarction; M19.90 Unspecified osteoarthritis, unspecified site; M06.9 Rheumatoid arthritis, unspecified
CPT/HCPCS: 93005; 85025; 80048; 36415; 84484; 70450; 72125; 70486; 76377; 96375; 96374; 99284; J2405

== ENCOUNTER 2021-05-25 08:05 | Emergency (ER) | payer OTHER ==
[2021-05-25 09:14] LABS: Urine Blood Negative (Negative); Urine Glucose Negative (Negative); Urine Protein 1+ (Negative); Urine pH 5.5 (5.0-7.0)
[2021-05-25] MEDS ORDERED: LORazepam 2 MG/ML VIAL ONE (09:14)
[2021-05-25] MEDS ORDERED: FAMOTIDINE 20 MG/2 ML VIAL IV ONE (09:15)
[2021-05-25] MEDS ORDERED: NA CHLORIDE 0.9% 250 ML ONE ×2 (09:15→15:04)
[2021-05-25] MEDS ORDERED: ONDANSETRON 4 MG/2 ML VIAL ONE (09:15)
--- NOTE | 2021-05-25 09:15 | RAD REPORT ---
EXAM DESCRIPTION: RAD - Chest Single View - 05/25/2021 9:08 am CLINICAL HISTORY: nausea/vomiting Chest pain. COMPARISON: Chest Pa And Lat (2 Views) dated 06/19/2020; Chest Single View dated 06/18/2020; Chest S jose alfredo View dated 04/02/2020; Chest Single View dated 01/06/2020 FINDINGS: Portable technique limits examination quality. Left apical pulmonary scarring is unchanged. The lungs are otherwise grossly clear. The heart is norm al in size. Right port catheter is unchanged in position with its tip in the right atrium.
[2021-05-25 09:17] LABS: Absolute Lymphocytes (CBC) 0.9 K/uL (0.7-4.9); Basophils % 0.2 % (0-1.3); Hematocrit 35.2 % (36.0-45.0); Lymphocytes % 18.4 % (15.3-44.8); MPV 8.8 fL (7.6-11.3); RBC Red Blood Cell Count 3.87 M/uL (3.86-4.86)
[2021-05-25 09:20] LABS: Protime INR 1.05
[2021-05-25 09:24] LABS: ALT/SGPT 20 U/L (12-78); AST/SGOT 18 U/L (15-37); Albumin 3.6 g/dL (3.4-5.0); Alkaline Phosphatase 85 U/L (45-117); BUN Blood Urea Nitrogen 22 mg/dL (7-18); Bicarbonate 29 mmol/L (21-32); Bilirubin Direct 0.1 mg/dL (0-0.2); Bilirubin Total 0.4 mg/dL (0.2-1.0); Glucose Level 131 mg/dL (74-106); Lipase 53 U/L (73-393); Magnesium 1.9 mg/dL (1.8-2.4); NT PRO-BNP 44 pg/mL (<125); Potassium 3.8 mmol/L (3.5-5.1); Protein, Total 7.9 g/dL (6.4-8.2); Sodium Level 138 mmol/L (136-145); Troponin (Emerg Dept Use Only) < 0.02 ng/mL (0.0-0.045)
[2021-05-25 09:39] LABS: Urine Bacteria <20 /HPF (<20); Urine Mucus 1+ /HPF (NONE SEEN); Urine RBC <5 /HPF (NONE SEEN)
[2021-05-25] MEDS ORDERED: NA CHLORIDE 0.9% 500 ML ONE (10:26)
--- NOTE | 2021-05-25 11:02 | RAD REPORT ---
EXAM DESCRIPTION: CT - Abdomen Pelvis Wo Contrast - 05/25/2021 10:39 am CLINICAL HISTORY: Abdominal pain. NAUSEA / VOMITING COMPARISON: Abdomen Pelvis Wo Contrast dated 01/06/2020 TECHNIQUE: CT imaging of the abdomen and pelvis was performed without contrast. Solid organ, bowel a nd vascular assessment is limited due to lack of IV and oral contrast. All CT scans are performed using dose optimization technique as appropriate and may include automated exposure control or mA/KV adjustment according to patient size. FINDINGS: The lower lung zayas are clear.Cholecystectomy clips. The liver, spleen, pancreas, adrenal glands and kidneys are within normal limits for a limited non-co ntrast examination.Prominent duodenal diverticulum noted. Anterior hernia mesh noted. No bowel obstruction, free air, free fluid or abscess. Small fat containing left inguinal hernia. Karlee endectomy. Moderate lumbar degenerative changes. IMPRESSION: No acute intra-abdominal or pelvic findings. A limited non-contrast examination was performed as detailed.
[2021-05-25] MEDS ORDERED: METOPROLOL TAR 25 MG TAB ONE (12:20)
[2021-05-25] MEDS ORDERED: CASIRIVIMAB/IMDEVIMAB 10 ML in NA CHLORIDE 0.9% 250 ML IV ONE (14:30)
[2021-05-25] MEDS ORDERED: CASIRIVIMAB/IMDEVIMAB 10 ML VIAL ONE (15:03)
[2021-05-25 16:14] LABS: White Blood Cell Scan OK (OK)
[2021-05-25 16:15] LABS: Anisocytosis 1+; Blood Morphology Comment NOTED (NOT SEEN); Platelet Estimate ADEQ; Poikilocytosis 2+
--- NOTE | 2021-05-25 17:37 | EDPHYS ---
Physician Documentation [facility] Name: Anisha Lindsay Age: 55 yrs Sex: Female : 1965 Arrival Date: 05/25/2021 Time: 08:07 Bed 18 Private MD: ED Physician Bean Conrad HPI: 05/25 08:35 This 55 yrs old Female presents to ER via Wheelchair with complaints of cp Weakness, Nausea. 08:35 The patient presents to the emergency department with nausea, that is moderate, cp vomiting, that is intermittent. 08:35 Onset: The symptoms/episode began/occurred 3 day(s) ago. cp 08:35 Possible causes: sick contacts, patient reports daughter recently tested positive for cp COVID-19. Associated signs and symptoms: Pertinent positives: abdominal pain, diarrhea, vomiting, Pertinent negatives: constipation, fever, GI bleeding, active vomiting. Severity of symptoms: in the emergency department the symptoms are unchanged despite home interventions. Historical: - Allergies: 08:30 Adhesives; ss 08:30 Celebrex; ss 08:30 Demerol; ss - PMHx: 08:30 CSF leak; COPD; Depression; CHF; Hypertension; Hypothyroidism; Anxiety; Myocardial ss infarction; Adenocarcinoma of the Lungs; osteo arthirtis; pericardial effusion; pericarditis; Renal Disease; Rheumatoid Arthritis; Stage 4 Lung Cencer- currently on Chemo; - Immunization history:: Client reports receiving the 2nd dose of the Covid vaccine, Client reports receiving the 2nd dose of the Covid vaccine. - Social history:: Smoking status: unknown Patient/guardian denies using alcohol. ROS: 08:40 Constitutional: Positive for body aches, poor PO intake, Negative for chills, fever. cp 08:40 Cardiovascular: Positive for chest pain, Negative for edema, palpitations. cp 08:40 Respiratory: Negative for cough, shortness of breath, wheezing. 08:40 Abdomen/GI: Positive for nausea and vomiting, anorexia, Negative for diarrhea, constipation, hematemesis, black/tarry stool, rectal bleeding. 08:40 : Negative for urinary symptoms. 08:40 Neuro: Positive for weakness, Negative for altered mental status, headache, syncope. 08:40 Eyes: Negative for injury, pain, redness, and discharge. cp 08:40 ENT: Negative for ear pain, sore throat, difficulty swallowing, difficulty handling cp secretions. 08:40 All other systems are negative. Exam: 08:45 Constitutional: The patient appears in no acute distress, alert, awake, cp non-diaphoretic, non-toxic, well developed, well nourished. 08:45 Head/Face: Normocephalic, atraumatic. cp 08:45 Eyes: Periorbital structures: appear normal, Conjunctiva: normal, no exudate, no injection, Sclera: no appreciated abnormality, Lids and lashes: appear normal, bilaterally. 08:45 ENT: External ear(s): are unremarkable, Nose: is normal, Mouth: Lips: moist, Oral mucosa: moist, Posterior pharynx: Airway: no evidence of obstruction, patent. 08:45 Neck: ROM/movement: is normal, is supple, without pain, no range of motions limitations, no meningismus, no nuchal rigidity. 08:45 Chest/axilla: Inspection: normal, Palpation: is normal, no crepitus, no tenderness. 08:45 Cardiovascular: Rate: tachycardic, Rhythm: regular, Edema: is not appreciated, JVD: is not appreciated. 08:45 Respiratory: the patient does not display signs of respiratory distress, Respirations: normal, no use of accessory muscles, no retractions, labored breathing, is not present, Breath sounds: bronchial sounds, that are mild, are heard in the left posterior lower lobe and right posterior lower lobe, stridor, is not appreciated. 09:06 ECG was reviewed by the Attending Physician. Vital Signs: 08:29 BP 141 / 91; Pulse 126; Resp 18; Temp 98.8(O); Pulse Ox 94% on R/A; ss 09:15 BP 113 / 69; Pulse 114; Resp 18; Temp 98.3; Pulse Ox 91% ; tc5 11:01 BP 110 / 54; Pulse 108; Resp 20; Pulse Ox 92% ; tc5 12:07 BP 131 / 62; Pulse 107; Resp 18; Pulse Ox 92% ; tc5 14:03 BP 105 / 67; Pulse 92; Resp 16; Pulse Ox 94% ; tc5 16:31 BP 109 / 48; Pulse 91; Resp 20; Pulse Ox 94% ; tc5 Nicholas Coma Score: 16:31 Eye Response: spontaneous(4). Verbal Response: confused(4). Motor Response: obeys tc5 commands(6). Total: 14. MDM: 08:26 Patient medically screened. cp 17:35 Data reviewed: vital signs, nurses notes, lab test result(s), EKG, radiologic studies, cp CT scan, plain films. 17:35 Differential diagnosis: gastritis, viral gastroenteritis, gastroenteritis, dehydration, cp electrolyte abnormality. Test interpretation: by ED physician or midlevel provider: ECG, plain radiologic studies. Counseling: I had a detailed discussion with the patient and/or guardian regarding: the historical points, exam findings, and any diagnostic results supporting the discharge/admit diagnosis, lab results, radiology results, to return to the emergency department if symptoms worsen or persist or if there are any questions or concerns that arise at home. Response to treatment: the patient's symptoms have markedly improved after treatment, patient is well hydrated. and as a result, I will discharge patient. 05/25 08:29 Order name: Basic Metabolic Panel 05/25 08:29 Order name: CBC with Diff 05/25 08:29 Order name: LFT's; Complete Time: 09:41 05/25 09:41 Interpretation: Normal except: GLOB 4.3; A/G 0.8. 05/25 08:29 Order name: Magnesium; Complete Time: 09:41 05/25 08:29 Order name: NT PRO-BNP; Complete Time: 09:41 05/25 08:29 Order name: PT-INR; Complete Time: 09:41 05/25 08:29 Order name: Troponin (emerg Dept Use Only); Complete Time: 09:41 05/25 08:29 Order name: Lipase; Complete Time: 09:41 05/25 09:42 Interpretation: LIP 53; Reviewed. 05/25 08:29 Order name: Urine Microscopic Only; Complete Time: 09:41 05/25 16:31 Interpretation: Normal except: UWBC 5-10. 05/25 08:30 Order name: Basic Metabolic Panel; Complete Time: 09:41 EDMS 05/25 09:42 Interpretation: Normal except: GLUC 131; BUN 22; CRE 1.81; GFR 29. 05/25 08:30 Order name: CBC with Automated Diff; Complete Time: 16:30 EDMS 05/25 11:13 Interpretation: Normal except: HGB 11.7; HCT 35.2; PLT 115; MN% 23.7. 05/25 09:14 Order name: Urine Dipstick-Ancillary; Complete Time: 16:31 EDMS 05/25 16:31 Interpretation: Normal except: UPROT 1+. 05/25 09:40 Order name: Urine Culture EDMS 05/25 08:29 Order name: XRAY Chest (1 view); Complete Time: 09:41 05/25 08:29 Order name: EKG; Complete Time: 08:30 05/25 09:44 Order name: CT Abd/Pelvis - Without Contrast; Complete Time: 11:12 05/25 11:12 Interpretation: Report reviewed. 05/25 12:52 Order name: SARS-COV-2 RT PCR; Complete Time: 14:05 EDMS 05/25 14:05 Interpretation: Results reviewed. 05/25 16:14 Order name: CBC Smear Scan; Complete Time: 16:30 EDMS 05/25 08:29 Order name: Cardiac monitoring; Complete Time: 11:00 05/25 08:29 Order name: EKG - Nurse/Tech; Complete Time: 09:01 05/25 08:29 Order name: IV Saline Lock; Complete Time: 09:01 05/25 08:29 Order name: Labs collected and sent; Complete Time: 09:01 05/25 08:29 Order name: O2 Per Protocol; Complete Time: 12:37 05/25 08:29 Order name: O2 Sat Monitoring; Complete Time: 08:38 05/25 11:13 Order name: PO challenge; Complete Time: 11:59 cp EC:06 Rate is 122 beats/min. Rhythm is regular. FL interval is normal. QRS interval is cp normal. QT interval is normal. T waves are Inverted in leads III, V2, V3. Interpreted by me. Reviewed by me. Administered Medications: 09:14 Drug: NS 0.9% 250 ml Route: IV; Rate: bolus; Site: right antecubital; tc5 09:14 Drug: Ativan (LORazepam) 0.5 mg Route: IVP; Site: right antecubital; tc5 09:15 Drug: Zofran (Ondansetron) 4 mg Route: IVP; Site: right antecubital; tc5 09:15 Drug: Pepcid (famotidine) 20 mg Route: IVP; Site: right antecubital; tc5 11:00 Drug: NS 0.9% 500 ml Route: IV; Rate: 500 ml/hr; Site: right antecubital; tc5 11:48 Follow up: IV Status: Completed infusion tc5 11:58 Drug: Metoprolol 25 mg Route: PO; tc5 15:31 Drug: REGEN-COV Dose Pack 120 mg/mL-120 mg/mL (EUA) 260 ml Route: IV; Rate: calculated tc5 rate; Site: left antecubital; 16:30 Follow up: IV Status: Completed infusion tc5 16:30 CANCELLED (Physician Discretion): fentaNYL (PF) 25 mcg IM once; RASS on ADMIN: Combtv4, cp Very Agttd3, Agttd2, Rstlss1, AlertClm0, Drwsy-1, Lt Sdtn-2, Mod Sdtn-3, Dp Sdtn-4, UnArsble-5 18:12 Drug: LoMOTIL (diphenoxylate-atropine) 2 tabs Route: PO; tc5 18:14 Follow up: Response: No adverse reaction tc5 19:00 Not Given (Physician Discretion): Metoprolol 2.5 mg IVP once tc5 Disposition: 05/26 07:16 Co-signature as Attending Physician, Bean Conrad MD I agree with the assessment and rn plan of care. Attestation: The patient's history, exam findings, diagnostics, and a summary of any interventions or procedures was reviewed in detail with Андрей SPRAGUE. Disposition Summary: 05/25/21 17:37 Discharge Ordered Location: Home cp Problem: new cp Symptoms: have improved cp Condition: Stable cp Diagnosis - Diarrhea, unspecified cp - SARS-associated coronavirus as the cause of diseases classified elsewhere cp - Dehydration cp Followup: cp - With: Private Physician - When: 2 - 3 days - Reason: Recheck today's complaints Discharge Instructions: - Discharge Summary Sheet cp - Food Choices to Help Relieve Diarrhea, Adult cp - Diarrhea, Adult cp - COVID-19 cp - Things to Know about the COVID-19 Pandemic - [facility] cp - Rehydration, Adult cp - 10 Things You Can Do to Manage Your COVID-19 Symptoms at Home - [facility] cp - COVID-19: Quarantine vs. Isolation - [facility] cp - Prevent the Spread of COVID-19 if You Are Sick - [facility] cp Forms: - Medication Reconciliation Form cp - Thank You Letter cp - Antibiotic Education cp - Prescription Opioid Use cp Prescriptions: - Zofran 4 mg Oral Tablet - take 1 tablet by ORAL route every 12 hours As needed; 20 tablet; Refills: 0, cp Product Selection Permitted - Lomotil 2.5-0.025 mg Oral Tablet - take 2 tablets by ORAL route once daily As needed; 20 tablet; Refills: 0, cp Product Selection Permitted Signatures: Dispatcher [employer] EDMS Bean Conrad MD MD rn Smirch, Shelby, RN RN ss Андрей Astorga, CELESTINE PA Edwige Osorio RN RN tc5 Corrections: (The following items were deleted from the chart) 05/25 11:15 08:30 CORONAVIRUS+MR.LAB.BRZ ordered. EDMS EDMS 16:30 12:22 fentaNYL (PF) 25 mcg IM once; RASS on ADMIN: Combtv4, Very Agttd3, Agttd2, cp Rstlss1, AlertClm0, Drwsy-1, Lt Sdtn-2, Mod Sdtn-3, Dp Sdtn-4, UnArsble-5 ordered. cp 17:41 16:30 Head Brain Wo Cont+CT.RAD.BRZ ordered. EDMS EDMS
--- NOTE | 2021-05-25 17:37 | ER ---
Nurse's Notes [facility] Name: Anisha Lindsay Age: 55 yrs Sex: Female : 1965 Arrival Date: 05/25/2021 Time: 08:07 Bed 18 Private MD: Diagnosis: Diarrhea, unspecified;SARS-associated coronavirus as the cause of diseases classified elsewhere;Dehydration Presentation: 05/25 08:29 Chief complaint: Patient states: N/V and generalized weakness that began 3 days ago. ss Daughter recently diagnosed with covid. Coronavirus screen: Client denies travel out of the [place] in the last 14 days. Ebola Screen: Patient denies exposure to infectious person. Patient denies travel to an Ebola-affected area in the 21 days before illness onset. Initial Sepsis Screen: Does the patient meet any 2 criteria? No. Patient's initial sepsis screen is negative. Does the patient have a suspected source of infection? No. Patient's initial sepsis screen is negative. Risk Assessment: Do you want to hurt yourself or someone else? Patient reports no desire to harm self or others. Onset of symptoms was May 30, 2021. 08:29 Method Of Arrival: Wheelchair ss 08:29 Acuity: CHEN 3 ss Triage Assessment: 08:33 General: Appears uncomfortable. General: Behavior is anxious, crying. Pain: Complains tc5 of pain in abdomen. Historical: - Allergies: 08:30 Adhesives; ss 08:30 Celebrex; ss 08:30 Demerol; ss - PMHx: 08:30 CSF leak; COPD; Depression; CHF; Hypertension; Hypothyroidism; Anxiety; Myocardial ss infarction; Adenocarcinoma of the Lungs; osteo arthirtis; pericardial effusion; pericarditis; Renal Disease; Rheumatoid Arthritis; Stage 4 Lung Cencer- currently on Chemo; - Immunization history:: Client reports receiving the 2nd dose of the Covid vaccine, Client reports receiving the 2nd dose of the Covid vaccine. - Social history:: Smoking status: unknown Patient/guardian denies using alcohol. Screenin:34 Abuse screen: Denies threats or abuse. pt reports she is depressed, states "yeah i want tc5 to hurt myself" repeats that she is depressed and has no plans to hurt herself, states she "thought I was better since i have done all my treatments 2-3 years ago". 08:36 Nutritional screening: No deficits noted. Tuberculosis screening: No symptoms or risk tc5 factors identified. Fall Risk None identified. Assessment: 08:34 General: Appears uncomfortable. Pain: Complains of pain in abdomen. tc5 11:05 Reassessment: pt resting, occasional whimper, no needs expressed, will cont to monitor. tc5 Vital Signs: 08:29 BP 141 / 91; Pulse 126; Resp 18; Temp 98.8(O); Pulse Ox 94% on R/A; ss 09:15 BP 113 / 69; Pulse 114; Resp 18; Temp 98.3; Pulse Ox 91% ; tc5 11:01 BP 110 / 54; Pulse 108; Resp 20; Pulse Ox 92% ; tc5 12:07 BP 131 / 62; Pulse 107; Resp 18; Pulse Ox 92% ; tc5 14:03 BP 105 / 67; Pulse 92; Resp 16; Pulse Ox 94% ; tc5 16:31 BP 109 / 48; Pulse 91; Resp 20; Pulse Ox 94% ; tc5 Paloma Coma Score: 16:31 Eye Response: spontaneous(4). Verbal Response: confused(4). Motor Response: obeys tc5 commands(6). Total: 14. ED Course: 08:07 Patient arrived in ED. rg4 08:18 Андрей Astorga PA is PHCP. cp 08:18 Bean Conrad MD is Attending Physician. cp 08:30 Triage completed. ss 08:30 Arm band placed on right wrist. ss 09:01 Basic Metabolic Panel Sent. tc5 09:01 CBC with Automated Diff Sent. tc5 09:01 Lipase Sent. tc5 09:01 Basic Metabolic Panel Sent. tc5 09:01 CBC with Diff Sent. tc5 09:02 LFT's Sent. tc5 09:02 Magnesium Sent. tc5 09:02 NT PRO-BNP Sent. tc5 09:02 PT-INR Sent. tc5 09:03 Inserted saline lock: 20 gauge in right antecubital area, using aseptic technique. tc5 09:08 XRAY Chest (1 view) In Process Unspecified. EDMS 10:39 CT Abd/Pelvis - Without Contrast In Process Unspecified. EDMS 11:06 No provider procedures requiring assistance completed. tc5 11:07 Patient has correct armband on for positive identification. Bed in low position. Call tc5 light in reach. Side rails up X 1. 12:01 pt d'c her IV, states "it infiltrated" took all of her leads off, wanted to go to the tc5 bathroom, assisted pt to the bathroom, will check with doctor if want another IV started. pt given her metoprolol, states she has it at home but couldent take it because she dont feel good. 12:05 IV discontinued, by pt. pt cont to take b/p cuff and vs monitoring off, informed needed tc5 to keep it on so she can be monitored for medication effectiveness. 13:30 Inserted saline lock: 20 gauge in left antecubital area, using aseptic technique. mt 14:02 Awaiting: faxed order to pharmacy, waiting on [employer]. tc5 15:01 Edwige Greene, RN is Primary Nurse. tc5 16:32 Notified Nurse Practitioner and/or Physician Rotary Drum Dyer of Pt appears to be increasingly tc5 confused and aggitated. Pt will not leave monitoring leads on. pt knows her name and , when asked where she is she replied "daycare" states her daughter is here to pick her up, states her daughter is who i was talking to, i informed her that i have not talked to daughter, she insist she hear me. Андрей SPRAGUE made aware and assessed pt states we will do a CT of head. will cont to monitor. 18:27 pt unable to get ride home, Jessica JOHNSON Charge made aware, states [facility] will [facility] send W/C van for transportation. Administered Medications: 09:14 Drug: NS 0.9% 250 ml Route: IV; Rate: bolus; Site: right antecubital; tc5 09:14 Drug: Ativan (LORazepam) 0.5 mg Route: IVP; Site: right antecubital; tc5 09:15 Drug: Zofran (Ondansetron) 4 mg Route: IVP; Site: right antecubital; tc5 09:15 Drug: Pepcid (famotidine) 20 mg Route: IVP; Site: right antecubital; tc5 11:00 Drug: NS 0.9% 500 ml Route: IV; Rate: 500 ml/hr; Site: right antecubital; tc5 11:48 Follow up: IV Status: Completed infusion tc5 11:58 Drug: Metoprolol 25 mg Route: PO; tc5 15:31 Drug: REGEN-COV Dose Pack 120 mg/mL-120 mg/mL (EUA) 260 ml Route: IV; Rate: calculated tc5 rate; Site: left antecubital; 16:30 Follow up: IV Status: Completed infusion tc5 16:30 CANCELLED (Physician Discretion): fentaNYL (PF) 25 mcg IM once; RASS on ADMIN: Combtv4, cp Very Agttd3, Agttd2, Rstlss1, AlertClm0, Drwsy-1, Lt Sdtn-2, Mod Sdtn-3, Dp Sdtn-4, UnArsble-5 18:12 Drug: LoMOTIL (diphenoxylate-atropine) 2 tabs Route: PO; tc5 18:14 Follow up: Response: No adverse reaction tc5 19:00 Not Given (Physician Discretion): Metoprolol 2.5 mg IVP once tc5 Outcome: 11:07 Condition: stable tc5 17:37 Discharge ordered by MD. cp 18:13 Discharged to home ambulatory, with family. tc5 18:14 Discharge instructions given to patient. tc5 20:04 Patient left the ED. mw2 Signatures: Dispatcher [employer] EDMS Cely Alba RN RN Андрей Rose PA PA cp Garcia, Rubi [facility]4 [facility] Edwige Greene RN RN tc5
[2021-05-25] MEDS ORDERED: LOPERAMIDE HCL 2 MG CAPSULE ONE (18:33)
[2021-05-25] MEDS ORDERED: DIPHENOX/ATROP SULF 1 TAB PO ONE (18:35)
[2021-05-25 20:43] VITALS: TEMP 98.3
[2021-05-25 20:46] VITALS: O2SAT 94
[2021-05-25 20:48] VITALS: BP 109/48
--- NOTE | 2021-05-26 10:27 | EKG ---
Test Date: 2021-05-25 Test Time: 09:00:36 Transit Survey Worker: BRITTNI MEASUREMENT RESULTS: Intervals: Rate: 122 ID: [id number] QRSD: 82 QT: 314 QTc: 447 [place]: P: 35 ID: [id number] QRS: 63 T: 19 INTERPRETIVE STATEMENTS: Sinus tachycardia T wave abnormality, consider anterior ischemia Abnormal ECG Compared to ECG 12/06/2020 13:00:55 T-wave abnormality now present Possible ischemia now present Sinus rhythm no longer present Electronically Signed On 05-26-21 10:22:24 CDT by [employer]
== END 2021-05-25 20:04 | disposition home or self-care (01) ==
LOC: ER 08:05
DX: U07.1 COVID-19 (principal); E86.0 Dehydration; I10 Essential (primary) hypertension; C34.90 Malignant neoplasm of unspecified part of unspecified bronchus or lung; Z88.5 Allergy status to narcotic agent; Z88.8 Allergy status to other drugs, medicaments and biological substances
CPT/HCPCS: 96365; 96361; 93005; 87088; 85025; 87086; 80048; 36415; 83735; 85610; 80076; 87077; 87186; 84484; 83690; 83880; 74176; 71045; 96375; 99284; U0003; J7050 ×2; J7040; J2405; 81003; 81015

== ENCOUNTER 2021-09-09 22:33 | Observation (INO) | payer OTHER ==
--- OUTSIDE RECORDS SUMMARY | 2021-09-09 22:35 | XMS REPORT | Clinical Summary ---
:1965 Author Organization [facility] MD [facility] Address [address] [place] [address] Care Team Providers Name Role Phone Ml Watts MD Unavailable MD Ashely Primary Care Provider Allergies Active Allergy Reactions Severity Noted Date Comments Adhesive Tape-Silicones 07/25/2013 Celecoxib Swelling 07/15/2016 Meperidine Hives 07/15/2016 Medications Medication Sig Dispensed Refills Start Date End Date Status fentaNYL (DURAGESIC) Place 75 mcg/hr 0 Active 100 mcg/hr transdermal patch on the skin patch every 72 hours. furosemide (LASIX) 20 Take 40 mg by 0 Active mg tablet mouth as needed. gabapentin (NEURONTIN) Take 800 mg by 0 Active 800 mg tablet mouth every 6 (six) hours. levothyroxine Take 50 mcg by 0 A ctive (SYNTHROID, mouth every LEVOTHROID) 50 mcg morning. tablet metoprolol tartrate Take 50 mg by 0 Active (LOPRESSOR) 50 mg mouth every tablet morning. ondansetron (ZOFRAN) 4 Take 4 mg by mouth 0 Active mg tablet every 8 (eight) hours as needed. OFLOXACIN OPHTHALMIC Administer 1 drop 0 Active into the left eye every 6 (six) hours. prednisoLONE acetate Administer 1 drop 0 Active (PRED FORTE) 1% into the left eye ophthalmic suspension every 6 (six) hours. sertraline (ZOLOFT) 50 Take 50 mg by 0 Active mg tablet mouth every evening. oxyCODONE (ROXICODONE) Take 15 mg by 0 05/12/2018 Active 15 mg immediate mouth every 8 release tablet (eight) hours as needed. tiZANidine (ZANAFLEX) Take 4 mg by mouth 0 5 Active 4 mg tablet twice daily. colestipol (COLESTID) Take 1 g by mouth 0 Active 5 gram granules daily. pantoprazole Take 40 mg by 0 Act vernon (PROTONIX) 40 mg EC mouth daily with tablet breakfast. polyethylene glycol Take 17 g by mouth 0 Active (MIRALAX) 17 g daily. packetIndications: constipation albuterol (VENTOLIN Inhale 2 puffs by 0 Active HFA,PROAIR HFA) 90 mouth every 6 mcg/puff (six) hours as inhalerIndications: needed for bronchospasm wheezing or prevention shortness of breath. potassium chloride Take 10 mEq by 0 Active (MICRO-K) 10 mEq CR mouth as needed capsuleIndications: for hypokalemia. hypokalemia prevention Active Problems Problem Noted Date Adenocarcinoma of upper lobe of right lung 06/02/2018 Rheumatoid arthritis 06/02/2018 Encounters Date Type Specialty Care Team Description 12/12/2020 Orders Only Infectious Diseases Prashanth Kincaid MD S ARS-CoV-2 vaccination after 09/09/2020 Surgical History Surgery Date Site/Laterality Comments APPENDECTOMY 09/05/2014 LUNG SURGERY O05/22/2018 COLONOSCOPY 05/20/2018 HERNIA REPAIR 01/03/2015 HYSTERECTOMY 09/05/2013 Partial, one ova ry BRONCHOSCOPY 01/03/2018 THYROID SURGERY 09/05/2013 left lobectomy CHOLECYSTECTOMY 09/05/2014 KNEE ARTHROPLASTY 09/05/2014 Left UPPER GASTROINTESTINAL ENDOSCOPY 05/20/1018 TONSILLECTOMY WRIST SURGERY Left CORNEAL TRANSPLANT LUNG LOBECTOMY Right Medical History Medical History Date Comments Hypertension 09/05/2014 Myocardial infarction 02/04/1016 Functional visual loss 09/05/2014 Blind in left eye Gastric reflux 09/05/1014 Irritable bowel syndrome 09/05/2014 Sexual dysfunction 09/05/2016 Painful intercourse, no desire Menopause 09/05/1014 Rheumatoid arthritis 09/05/2013 Depressive disorder 09/05/2014 Anxiety 09/05/1014 Coronary arteriosclerosis Haque's esophagus Mantoux: positive Thyroid nodule Hypothyroidism Chronic obstructive pulmonary disease Family History Medical History Relation Name Comments -Colon cancer Brother 1 Tenzin Hector -Breast cancer Mother Misty Domingo -Head and Neck Mother Misty Domingo -Thoracic or Lung Sister Brody Hinson Relation Name Status Comments Brother 1 Tenzin Young Brother 2 Mane Young Mother [address]y [address] Sister Brody Hinson Social History Tobacco Use Types Packs/Day Years Used Date Former Smoker Cigarettes 1.5 10 09/05/1980 - 1 10/06/1998 Smokeless Tobacco: Never Used Alcohol Use Standard Drinks/Week Comments No 0 (1 standard drink = 0.6 oz pure alcoho l) Sex Assigned at Date Recorded Not on file Obstetrics History Last Filed Vital Signs Not on file Plan of Treatment Health Maintenance Due Date Last Done Comments COVID-19 Vaccination (1) 1968 Results Not on fileafter 09/09/2020 Insurance Payer Benefit Plan / Subscriber ID Effective Dates Phone Addre ss Type Group MEDICARE MEDICARE PART [id number] 2013-Heidi [phone] [facility] Medicare A AND B t 2 SOLUTIONS [address] [place] [address] Care Teams 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
--- OUTSIDE RECORDS SUMMARY | 2021-09-09 22:36 | XMS REPORT | Continuity of Care Document ---
:1965 Author Organization [facility] t Address [address] [place] [address] Care Team Providers Name Role Phone Ashely ORDONEZ Primary Care Physician EVGENY Attending Clinician Unavailable Sanjiv ORDONEZ Attending Clinician MD EVGENY Attending Clinician Unavailable LINDA Attending Clinician Unavailable THEA Attending Clinician Unavailable Ryley Hammond Attending Clinician PRABHJOT Attending Clinician Unavailable SARI Attending Clinician Unavailable MD EVGENY Admitting Clinician Unavailable THEA Admitting Clinician Unavailable SARI Admitting Clinician Unavailable Payers Payer Name Policy Type Policy Effective Date Expiration Date Sour ce Number MEDICAREMEDICARE PART [id number] 2013 MD Rod Bull AND 00:00:00 [id number] [address] [place] [address] [place] [address]Medicare Problems Condition Condition Condition Status Onset Resolution Last Treating Co mments Source Name Details Category Date Date Treatment Clinician Date Malfunctio Malfunctio Disease Active B aylor n of n of 2-03 College intratheca intratheca 00:00: of l infusion l infusion 00 Me dicin pump pump e 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 00:00: n of right of right 00 lung lung Rheumatoid Rheumatoid Disease Active M D arthritis arthritis 06-02 Stu rso 00:00: n 00 Secondary Secondary Disease Active [facility] glaucoma glaucoma 3-24 Colleg e 00:00: of 00 Medicin e H/O H/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 Colleg e rheumatoid rheumatoid 00:00: of arthritis arthritis 00 Medi josé e Corneal Corneal Disease Active [facility]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 2 Co llege failure failure 00:00: of 00 Medicin e 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 123 College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 00:00: of 00 Medicin e Corneal Corneal Disease Active 2011-09 [facility] opacity opacity 2-12 College 00:00: of 00 Medicin e Allergies, Adverse Reactions, Alerts Allergy Allergy Status Severity Reaction(s) Onset Inactive Treating Comm ents Source Name Type Date Date Clinician Adhesive Propensi Active 2012-09 [facility] Tape ty to 1-20 College adverse 00:00: of reaction 00 Medicin s to e substanc e Celecoxi Propensi Active 2011-09 [facility] b ty to 2-12 College adverse 00:00: of reaction 00 Medicin s to e drug Demerol Propensi Active Hives [facility] ty to 6-18 College adverse 00:00: of reaction 00 Medicin s to e drug Family History Family Member Diagnosis Comments Start Date Stop Date Source Natural brother -Colon cancer And sarahy Natural mother -Breast cancer And sarahy Natural mother -Head and Neck And sarahy Natural sister -Thoracic or Lung MD Velasco Social History Social Habit Start Date Stop Date Quantity Comments Source Cigarettes smoked 2018-06-02 2018-06-02 MD Stu morales current (pack per 00:00:00 00:00:00 day) - Reported Cigarette 2018-06-02 2018-06-02 MD Velasco pack-years 00:00:00 00:00:00 Tobacco use and 2018-06-02 2018-06-02 Smokeless tobacco MD Velasco exposure 00:00:00 00:00:00 non-user Alcohol intake 2018-06-02 2018-06-02 Current MD Kaylen ward 00:00:00 00:00:00 non-drinker of alcohol (finding) History of tobacco 1980-09-05 1999-08-05 Current smoker MD Velasco use 00:00:00 00:00:00 Sex [birth year] At [birth year] MD Ricardo on 00:00:00 00:00:00 Smoking Status Start Date Stop Date Source Former smoker 2019-10-08 00:00:00 2019-10-08 00:00:00 [facility] Medicine Medications Ordered Filled Start Stop Current Ordering Indication Dosage Frequency Signature Comments Components Source Medication Medication Date Date Medication? Clinician (SIG) Name Name tobramycin 2019-0 Yes 1[drp] 1 Drop [place] david 15 mg/mL -31 every College ophthalmic 16:47: hour. of solution 18 Medicin e lisinopril- 2019-0 Yes 1{tbl} Take 1 Tab [facility] hydrochloro -31 by mouth Aleja ege thiazide 16:47: daily. of (PRINZIDE, 18 Medicin ZESTORETIC) e 20-12.5 MG per tablet furosemide 2019-0 Yes 20mg Take 20 mg B aylor (LASIX) 20 31 by mouth Colle ge MG tablet 16:47: daily. of 18 Medicin e furosemide 2019-0 Yes 40mg Take 40 mg B aylor (LASIX) 40 -31 by mouth Colle ge MG tablet 16:47: daily. of 18 Medicin e levothyroxi 2019-0 Yes 75ug Take 75 [place] david ne 1-31 mcg by College (SYNTHROID) 16:47: mouth of 75 MCG 18 daily. Medicin tablet e FOLIC ACID 2020-0 Yes [facility] 1- College 16:47: of 18 Medicin e venlafaxine 2019-0 Yes 75mg Take 75 mg Jayden (EFFEXOR 10-05 by mouth [place]enta XR) 75 MG 16:47: daily. of XR capsule 18 Medicin e hydrocodone 2020-0 Yes 1{tbl} Take 1 Tab [facility] -acetaminop -31 by mouth Aleja ege hen 16:47: every 6 of (LORCET) 18 hours as Medicin 10-650 MG needed. e per tablet alprazolam 2020-0 Yes 2mg Take 2 mg Ba ylor (XANAX) 2 -31 by mouth Colleg e MG tablet 16:47: nightly as of 18 needed. Medicin e carisoprodo 2020-0 Yes 350mg Take 350 B aylor l (SOMA) 1-31 mg by [place]enta 350 MG 16:47: mouth four of tablet 18 times Medicin daily. e gabapentin 2020-0 Yes 300mg Take 300 Ba ylor (NEURONTIN) 1-31 mg by [place] 300 MG 16:47: mouth 3 of capsule 18 times Medicin daily. e venlafaxine 2020-0 Yes 37.5mg Take 37.5 [facility] (EFFEXOR) 1-31 mg by [place] 37.5 MG 16:47: mouth 3 of tablet 18 times Medicin daily. e levothyroxi 2019-0 Yes 50ug Take 50 [place] david ne 1-31 mcg by Kayenta (SYNTHROID) 16:47: mouth of 50 MCG 18 daily. Medicin tablet e OxyCODONE 2019-0 Yes Take by [place] HCl 5 MG 1-31 mouth. [place] TABA 16:47: of 18 Medicin e leflunomide 2019-0 Yes 20mg Take 20 mg [facility] (ARAVA) 20 1-31 by mouth Colle ge MG tablet 16:47: daily. of 18 Medicin e fentanyl 2019-0 Yes 1{patch Place 1 [place] david (DURAGESIC) 1-31 } Patch onto Co llege 100 MCG/HR 16:47: the skin of patch 18 daily. Medicin e colestipol Yes 1g Take 1 g MD (COLESTID) 9-28 by mouth Baldemar so 5 gram 10:13: daily. n granules 37 pantoprazol Yes 40mg Take 40 mg MD e 9-28 by mouth Anderso (PROTONIX) 10:13: daily with n 40 mg EC 37 breakfast. tablet polyethylen Yes constipatio 17g Take 17 g MD e glycol 9-28 n by mouth Anderso (MIRALAX) 10:13: daily. n 17 g packet 37 albuterol 0 Yes bronchospas 2{puff} Inhale 2 MD (VENTOLIN 9-28 m puffs by Davion o HFA,PROAIR 10:13: prevention mouth n HFA) 90 37 every 6 mcg/puff (six) inhaler hours as needed for wheezing or shortness of breath. potassium Yes hypokalemia 10meq Take 10 MD chloride 9-28 prevention mEq by And erso (MICRO-K) 10:13: mouth as n 10 mEq CR 37 needed for capsule hypokalemi a. fentaNYL 2018-[address] 75 MD (DURAGESIC) 9-28 mcg/hr Davion o 100 mcg/hr 10:11: patch on n transdermal 33 the skin patch every 72 hours. furosemide 2018-0 Yes 40mg Take 40 mg M D (LASIX) 20 -28 by mouth Baldemar so mg tablet 10:11: as needed. n 33 gabapentin 2018-0 Yes 800mg Take 800 MD (NEURONTIN) 9-28 mg by Anderso 800 mg 10:11: mouth n tablet 33 every 6 (six) hours. levothyroxi 2018-0 Yes 50ug Take 50 MD ne 9-28 mcg by Anderso (SYNTHROID, 10:11: mouth n LEVOTHROID) 33 every 50 mcg morning. tablet metoprolol 2018-0 Yes 50mg Take 50 mg M D tartrate 06-02 by mouth Anderso (LOPRESSOR) 10:11: every n 50 mg 33 morning. tablet ondansetron 2018-0 Yes 4mg Take 4 mg M D (ZOFRAN) 4 06-02 by mouth Baldemar so mg tablet 10:11: every 8 n 33 (eight) hours as needed. OFLOXACIN 2018-0 Yes 1[drp] Administer MD OPHTHALMIC 06-02 1 drop Anderso 10:11: into the n 33 left eye every 6 (six) hours. prednisoLON 2018-0 Yes 1[drp] Administer MD E acetate 06-02 1 drop Anderso (PRED 10:11: into the n FORTE) 1% 33 left eye ophthalmic every 6 suspension (six) hours. sertraline 2018-0 Yes 50mg Take 50 mg M D (ZOLOFT) 50 06-02 by mouth Stu rso mg tablet 10:11: every n 33 evening. oxyCODONE 2018-0 Yes 15mg Take 15 mg MD (ROXICODONE 05-12 by mouth Stu rso ) 15 mg 00:00: every 8 n immediate 00 (eight) release hours as tablet needed. COMBIGAN 2017-0 Yes 1[drp] Place 1 Bayl or 0.2-0.5 % 6-15 Drop into Colle ge ophthalmic 00:00: the left of solution 00 eye every Medici n 12 hours. e ofloxacin 2017-0 Yes 1[drp] Apply 1 [place] david (OCUFLOX) 3-21 Drop to Kayenta 0.3 % 00:00: eye four of ophthalmic 00 times Medicin solution daily. e Left eye acyclovir Yes 400mg Take 1 Tab [facility] (ZOVIRAX) 9-19 by mouth Colleg e 400 MG 00:00: two times of tablet 00 daily. Medicin e Loteprednol Yes 1[drp] Place 1 B aylor Etabonate 8-29 Drop into [facility] ge (LOTEMAX) 00:00: the left of 0.5 % GEL 00 eye 3 Medicin times e daily. atropine 1 2014-09 Yes 1[drp] Place 1 Ba ylor % 0-30 Drop into [place] ophthalmic 00:00: the left of solution 00 eye two Medicin times e daily. prednisoLON 2014-09 Yes 1[drp] Place 1 B aylor E acetate 0-13 Drop into [facility] ge (PRED 00:00: the left of FORTE) 1 % 00 eye four Medic in ophthalmic times e suspension daily. Shake well before instillati on acetaZOLAMI Yes 500mg Take 1 Cap Jayden DE (DIAMOX 9-25 by mouth Colle ge SEQUELS) 00:00: two times of 500 mg 00 daily. Medicin capsule e acetaZOLAMI Yes 250mg Take 1 Tab [facility] DE (DIAMOX) 7-30 by mouth Aleja ege 250 mg 00:00: two times of tablet 00 daily. Medicin e rizatriptan Yes Jayden (MAXALT) 5 5-22 College MG tablet 00:00: of 00 Medicin e tiZANidine Yes 4mg Take 4 mg MD (ZANAFLEX) 5-20 by mouth Baldemar so 4 mg tablet 00:00: twice n 00 daily. fentanyl Yes [facility] (DURAGESIC) 5-20 [place] 100 MCG/HR 00:00: of patch 00 Medicin e RELISTOR 12 Yes [facility] MG/0.6ML 5-20 [place] SOLN 00:00: of 00 Medicin e oxycodone Yes Jayden (OXY-IR) 30 5-20 College MG 00:00: of immediate 00 Medicin release e tablet tizanidine Yes [facility] (ZANAFLEX) 5-20 [place]enta 4 MG tablet 00:00: of 00 Medicin e losartan-hy Yes [facility] drochloroth 5-19 [place] iazide 00:00: of (HYZAAR) 00 Medicin 100-25 MG e per tablet omeprazole Yes [facility] (PRILOSEC) 5-19 [place]enta 20 MG 00:00: of capsule 00 Medicin e AMITIZA 24 Yes [facility] MCG CAPS 4-22 [place] 00:00: of 00 Medicin e PEG Yes [facility] 3350-KCl-Na 4-21 [place] Bcb-NaCl-Na 00:00: of Sulf 00 Medicin (PEG-3350/E e LECTROLYTES ) 236 G SOLR predniSONE Yes [facility] (DELTASONE) 3-31 Kayenta 5 MG tablet 00:00: of 00 Medicin e Vital Signs Vital Name Observation Time Observation Value Comments Source Systolic blood 2019-10-05 16:47:00 100 mm[Hg] [facility] Medicine Diastolic blood 2019-10-05 16:47:00 65 mm[Hg] [facility] Medicine Heart rate 2019-10-05 16:47:00 72 /min [facility] Body temperature 2019-10-05 16:47:00 36.61 [facility] Respiratory rate 2019-10-05 16:47:00 14 /min [facility] Body height 2019-10-05 16:47:00 157.5 cm [facility] Body weight 2019-10-05 16:47:00 106.142 kg [facility] BMI 2019-10-05 16:47:00 42.80 kg/m2 [facility] Oxygen saturation in 2019-10-05 16:47:00 94 /min [facility] Arterial blood by [facility] Pulse oximetry Systolic blood 2019-10-05 16:47:00 100 mm[Hg] [facility] pressure Medicine Diastolic blood 2019-10-05 16:47:00 65 mm[Hg] [facility] Medicine Heart rate 2019-10-05 16:47:00 72 /min [facility] Body temperature 2019-10-05 16:47:00 36.61 [facility] Respiratory rate 2019-10-05 16:47:00 14 /min [facility] Body height 2019-10-05 16:47:00 157.5 cm [facility] Body weight 2019-10-05 16:47:00 106.142 kg [facility] BMI 2019-10-05 16:47:00 42.80 kg/m2 [facility] Oxygen saturation in 2019-10-05 16:47:00 94 /min [facility] Arterial blood by [facility] Pulse oximetry Procedures This patient has no known procedures. Plan of Care Planned Activity Planned Date Details Comments Source Future Scheduled 1970 COVID-19 Vaccination MD Velasco Test 00:00:00 (1) [code = COVID-19 Vaccination (1)] Future Scheduled HIV SCREENING [code = [facility] Test HIV SCREENING] Medicine Future Scheduled CERVICAL CANCER [facility] olle of Test SCREENING 3 YEAR Medicine FOLLOW UP [code = CERVICAL CANCER SCREENING 1 YEAR FOLLOW UP] Future Scheduled MEDICARE AWV [facility] ege of Test (Initial) [code = Medicine MEDICARE AWV (Initial)] Future Scheduled FLU VACCINE > 6 [facility] ollege of Test MONTHS [code = FLU Medicine VACCINE > 6 MONTHS] Future Scheduled COLON CANCER [facility] ege of Test SCREENING: Medicine COLONOSCOPY [code = COLON CANCER SCREENING: COLONOSCOPY] Future Scheduled MAMMOGRAM ANNUAL [facility] [code = MAMMOGRAM Medicine ANNUAL] Future Scheduled TETANUS SHOT (ADULT) [facility] Test [code = TETANUS SHOT Medicin e (ADULT)] Future Scheduled BMI FOLLOW UP PLAN [facility] Test [code = BMI FOLLOW UP Medici ne PLAN] Future Scheduled HEPATITIS C SCREENING [facility] [code = HEPATITIS C Medicine SCREENING] Encounters Start End Encounter Admission Attending Care Care Encounter Source Date/Time Date/Time Type Type Clinicians Facility Department ID 2021-04-07 2021-04-07 Outpatient MICHELLE PEPPER [facility] [id number] [place] 00:00:00 00:00:[address] 2021-04-07 2021-04-07 Outpatient MICHELLE PEPPER [facility] [id number] [place] 00:00:00 00:00:[address] 2021-04-07 2021-04-07 Outpatient MICHELLE PEPPER [facility] [id number] [place] 00:00:00 00:00:[address] 2020-10-07 2020-10-07 Outpatient MICHELLE PEPPER [facility] [id number] [place] 00:00:00 00:00:[address] 2020-10-07 2020-10-07 Outpatient MICHELLE PEPPER [facility] [id number] [place] 00:00:00 00:00:[address] 2020-10-07 2020-10-07 Outpatient MICHELLE PEPPER [facility] [id number] [place] 00:00:00 00:00:[address] 2020-07-07 2020-07-07 Outpatient MICHELLE PEPPER [facility] [id number] [place] 00:00:00 00:00:[address] 2020-07-07 2020-07-07 Outpatient MICHELLE PEPPER [facility] [id number] [place] 00:00:00 00:00:[address] 2020-05-07 2020-05-07 Outpatient MICHELLE PEPPER [facility] [id number] [place] 00:00:00 00:00:[address] 2020-05-07 2020-05-07 Outpatient MICHELLE PEPPER [facility] [id number] [place] 00:00:00 00:00:[address] 2020-05-07 2020-05-07 Outpatient MICHELLE PEPPER [facility] [id number] [place] 00:00:00 00:00:[address] 2020-05-07 2020-05-07 Outpatient MICHELLE PEPPER [facility] [id number] [place] 00:00:00 00:00:[address] 2020-03-14 2020-03-14 Outpatient [facility] [id number] [place] 00:00:00 00:00:[address] 2020-03-14 2020-03-14 Outpatient [facility] [id number] [place] 00:00:00 00:00:[address] 2020-02-05 2020-02-05 Outpatient MICHELLE PEPPER [facility] [id number] [place] 00:00:00 00:00:[address] 2020-02-05 2020-02-05 Outpatient MICHELLE PEPPER [facility] [id number] [place] 00:00:00 00:00:[address] 2020-01-25 2020-01-25 Outpatient LINDA [facility] [id number] [place] 00:00:00 00:00:00 JONE [address] 2020-01-25 2020-01-25 Outpatient LINDA, [facility] [id number] [place] 00:00:00 00:00:00 JONE [address] 2020-01-25 2020-01-25 Outpatient LINDA [facility] [id number] [place] 00:00:00 00:00:00 JONE [address] 2020-01-08 2020-01-08 Outpatient COURTNEY SIDHU [facility] [id number] [place] 00:00:00 00:00:[address] 2020-01-03 2020-01-03 Outpatient COURTNEY SIDHU [facility] [id number] [place] 00:00:00 00:00:[address] 2020-01-03 2020-01-03 Outpatient COURTNEY SIDHU [facility] [id number] [place] 00:00:00 00:00:[address] 2020-01-03 2020-01-03 Outpatient COURTNEY SIDHU [facility] [id number] [place] 00:00:00 00:00:[address] 2020-01-03 2020-01-03 Outpatient COURTNEY SIDHU [facility] [id number] [place] 00:00:00 00:00:[address] 2020-01-03 2020-01-03 Outpatient COURTNEY SIDHU [facility] [id number] [place] 00:00:00 00:00:[address] 2019-10-30 2019-10-30 Outpatient THEA MIN [facility] [id number] [place] 00:00:00 00:00:[address] 2019-10-30 2019-10-30 Outpatient COURTNEY SIDHU [facility] [id number] [place] 00:00:00 00:00:[address] 2019-10-05 2019-10-05 Office BRENDAN Balderas [id number] 10:32:20 14:51:51 Visit [place] AMBULATOR [id number] Ryley Y [id number] 2019-10-05 2019-10-05 Office BRENDAN Balderas [id number] [facility] 10:32:20 14:51:51 Visit [place] AMBULATOR [id number] College Ryley Y [id number] Medi josé 300 e 2019-10-04 2019-10-04 Outpatient COURTNEY SIDHU [facility] [id number] [place] 00:00:00 00:00:[address] 2019-10-04 2019-10-04 Outpatient COURTNEY SIDHU [facility] [id number] [place] 00:00:00 00:00:[address] 2019-09-20 2019-09-20 Outpatient PRABHJOT, [facility] [id number] [place] 00:00:00 00:00:00 VIRIDIANA [address] 2019-07-16 2019-07-16 Outpatient MICHELLE PEPPER [facility] [id number] [place] 00:00:00 00:00:[address] 2019-06-29 2019-06-29 Outpatient LINDA, [facility] [id number] [place] 00:00:00 00:00:00 JONE [address] 2019-05-29 2019-05-31 Inpatient SARI, [facility] [id number] [place] 00:00:00 00:00:00 JERAMIE [address] Results Test Description Test Time Test Comments Results Result Comments Source SARS-CoV-2 (COVID-19) RNA [Presence] in Respiratory sp ecimen by 2020-05-07 22:49:50 EMILY with probe detection Test Item Value Reference Range Interpretation Comme nts SARS-CoV-2 (COVID-19) RNA [Presence] in Respiratory Not detected No t-Detected specimen by EMILY with probe detection (test code = 86635-4) FL, FLUORO, NON-SPECIFIC, UP TO 1 [id number] 08:26:00Reason for exam:- >Chronic PainFINAL REPORT A fluoroscopic unit was utilized for a procedure performed in the operating room. No interpretation was requested. Please refer to the operative report regarding findings. Please refer to PACS for patient radiation dose information. Signed: Peri Linn Verified Date/Time: 10/09/2019 08:26:53 [facility]
[2021-09-09] MEDS ORDERED: ONDANSETRON 4 MG/2 ML VIAL ONE (23:33)
[2021-09-09] MEDS ORDERED: METOPROLOL TARTRATE 5 MG/5 ML INJ IV ONE (23:33)
[2021-09-09] MEDS ORDERED: NA CHLORIDE 0.9% 1,000 ML ONE (23:33)
[2021-09-09] MEDS ORDERED: MORPHINE 4 MG/ML SYR ONE (23:33)
[2021-09-10 00:17] LABS: Absolute Lymphocytes (CBC) 1.2 K/uL (0.7-4.9); Hematocrit 36.2 % (36.0-45.0); Lymphocytes % 21.8 % (15.3-44.8); MPV 8.9 fL (7.6-11.3)
[2021-09-10 00:19] LABS: Protime INR 0.85
[2021-09-10] MEDS ORDERED: LORazepam 2 MG/ML VIAL ONE ×2 (00:22→01:54)
[2021-09-10 00:37] LABS: ALT/SGPT 19 U/L (12-78); AST/SGOT 13 U/L (15-37); Albumin 3.5 g/dL (3.4-5.0); Alkaline Phosphatase 92 U/L (45-117); BUN Blood Urea Nitrogen 28 mg/dL (7-18); Bicarbonate 27 mmol/L (21-32); Bilirubin Direct < 0.1 mg/dL (0-0.2); Bilirubin Total 0.2 mg/dL (0.2-1.0); Glucose Level 152 mg/dL (74-106); Magnesium 2.2 mg/dL (1.8-2.4); NT PRO-BNP 548 pg/mL (<125); Sodium Level 142 mmol/L (136-145); Troponin (Emerg Dept Use Only) < 0.02 ng/mL (0.0-0.045)
[2021-09-10] MEDS ORDERED: MORPHINE 4 MG/ML SYR ONE ×2 (01:02→03:06)
[2021-09-10 01:16] LABS: SARS-COV-2 RT PCR NEGATIVE (NEGATIVE)
[2021-09-10 02:15] LABS: Troponin (Emerg Dept Use Only) 0.15 ng/mL (0.0-0.045)
--- NOTE | 2021-09-10 03:00 | EDPHYS ---
Physician Documentation [facility] Name: Anisha Lindsay Age: 56 yrs Sex: Female : 1965 Arrival Date: 09/09/2021 Time: 22:34 Bed 23 Private MD: ED Physician Jay Kebede HPI: 09/10 00:06 This 56 yrs old Female presents to ER via Ambulatory with complaints of Chest Pain > 30 pkl y/o, Shortness Of Breath, Vomiting, Headache. 00:06 The patient or guardian reports chest pain that is located primarily in the substernal pkl area. Onset: just prior to arrival. The pain does not radiate. Associated signs and symptoms: Pertinent positives: nausea, vomiting. The chest pain is described as dull. The patient has experienced similar episodes in the past, a few times. Patient saw her pain management physician earlier and had her dosage of pain pump adjusted. Historical: - Allergies: 09/09 22:52 Adhesives; ld1 22:52 Celebrex; ld1 22:52 Demerol; ld1 - PMHx: 22:52 Adenocarcinoma of the Lungs; CHF; Anxiety; CSF leak; COPD; Hypertension; ld1 Hypothyroidism; Myocardial infarction; osteo arthirtis; pericardial effusion; pericarditis; Renal Disease; Rheumatoid Arthritis; Stage 4 Lung Cencer- currently on Chemo; Depression; - Immunization history:: Adult Immunizations up to date, Client reports receiving the 2nd dose of the Covid vaccine. - Social history:: Smoking status: Patient denies any tobacco usage or history of. Patient/guardian denies using alcohol. ROS: 09/10 00:06 Eyes: Negative for injury, pain, redness, and discharge, ENT: Negative for injury, pkl pain, and discharge, Neck: Negative for injury, pain, and swelling. Cardiovascular: Positive for chest pain. Respiratory: Negative for cough, shortness of breath. Abdomen/GI: Positive for nausea and vomiting. Back: Negative for acute changes. : Negative for urinary symptoms. MS/extremity: Negative for acute changes. Skin: Negative for rash. Neuro: Negative for altered mental status, loss of consciousness. Psych: Positive for anxiety. Exam: 00:06 Head/Face: Normocephalic, atraumatic. Eyes: Pupils equal round and reactive to light, pkl extra-ocular motions intact. Lids and lashes normal. Conjunctiva and sclera are non-icteric and not injected. Cornea within normal limits. Periorbital areas with no swelling, redness, or edema. ENT: Nares patent. No nasal discharge, no septal abnormalities noted. Tympanic membranes are normal and external auditory canals are clear. Oropharynx with no redness, swelling, or masses, exudates, or evidence of obstruction, uvula midline. Mucous membranes moist. Neck: Trachea midline, no thyromegaly or masses palpated, and no cervical lymphadenopathy. Supple, full range of motion without nuchal rigidity, or vertebral point tenderness. No Meningismus. Chest/axilla: Normal chest wall appearance and motion. Nontender with no deformity. No lesions are appreciated. Cardiovascular: Regular rate and rhythm with a normal S1 and S2. No gallops, murmurs, or rubs. Normal PMI, no JVD. No pulse deficits. Respiratory: Lungs have equal breath sounds bilaterally, clear to auscultation and percussion. No rales, rhonchi or wheezes noted. No increased work of breathing, no retractions or nasal flaring. Abdomen/GI: Soft, non-tender, with normal bowel sounds. No distension or tympany. No guarding or rebound. No evidence of tenderness throughout. Back: No spinal tenderness. No costovertebral tenderness. Full range of motion. Skin: Warm, dry with normal turgor. Normal color with no rashes, no lesions, and no evidence of cellulitis. MS/ Extremity: Pulses equal, no cyanosis. Neurovascular intact. Full, normal range of motion. 00:06 Neuro: Orientation: is normal, Mentation: is normal, Memory: is normal, Cranial nerves: grossly normal, Cerebellar function: is grossly normal, Motor: is normal, Sensation: is normal. Vital Signs: 09/09 22:50 BP 187 / 113; Pulse 98; Resp 24; Temp 98.0(O); Pulse Ox 100% on R/A; Weight 92.53 kg; ld1 Height 5 ft. 3 in. (160.02 cm); Pain 8/10; 09/10 00:03 BP 168 / 98; Pulse 92; Pulse Ox 99% ; ld1 00:28 BP 164 / 90; Pulse 84; ld1 02:55 BP 164 / 93; ds4 09/09 22:50 Body Mass Index 36.14 (92.53 kg, 160.02 cm) ld1 MDM: 09/09 22:59 Patient medically screened. pkl 09/10 02:56 Data reviewed: vital signs, nurses notes, lab test result(s), EKG, radiologic studies, pkl plain films. ED course: Patient feeling better. Discussed lab, EKG and imaging studies with patient. Advised to follow up with pain management in the morning. Patient understood instruction.. 09/09 23:18 Order name: Basic Metabolic Panel; Complete Time: 00:46 pkl 09/09 23:18 Order name: CBC with Diff; Complete Time: 00:31 pkl 09/09 23:18 Order name: LFT's; Complete Time: 00:46 pkl 09/09 23:18 Order name: Magnesium; Complete Time: 00:46 pkl 09/09 23:18 Order name: NT PRO-BNP; Complete Time: 00:46 pkl 09/09 23:18 Order name: PT-INR; Complete Time: 00:31 pkl 09/09 23:18 Order name: Troponin (emerg Dept Use Only); Complete Time: 00:46 pkl 09/10 00:12 Order name: D-Dimer; Complete Time: 00:31 EDMS 09/10 00:14 Order name: COVID-19/FLU A+B (Document "Date of Onset" if Symptomatic); Complete Time: pkl :09/10 01:32 Order name: Troponin (emerg Dept Use Only); Complete Time: 05:37 pkl 09/10 03:29 Order name: CKMB Creatine Kinase MB EDMS 09/10 03:29 Order name: Creatine Phosphokinase EDMS 09/10 04:44 Order name: Creatine Phosphokinase; Complete Time: 05:37 EDMS 09/09 23:18 Order name: XRAY Chest (1 view); Complete Time: 19:42 pkl 09/09 23:18 Order name: EKG; Complete Time: 23:18 pkl 09/10 04:44 Order name: CKMB Creatine Kinase MB; Complete Time: 05:37 EDMS 09/10 07:30 Order name: Troponin I; Complete Time: 19:42 EDMS 09/10 12:14 Order name: NM; Complete Time: 19:42 EDMS 09/10 21:01 Order name: Troponin I; Complete Time: 21:02 EDMS 09/10 22:00 Order name: US; Complete Time: 00:21 EDMS 09/11 00:56 Order name: CBC with Automated Diff; Complete Time: 02:11 EDMS 09/09 23:18 Order name: Cardiac monitoring; Complete Time: 23:46 pkl 09/09 23:18 Order name: EKG - Nurse/Tech; Complete Time: 23:46 pkl 09/09 23:18 Order name: IV Saline Lock; Complete Time: :46 pkl 09/09 23:18 Order name: Labs collected and sent; Complete Time: 23:46 pkl 09/09 23:18 Order name: O2 Per Protocol; Complete Time: :46 pkl 09/09 23:18 Order name: O2 Sat Monitoring; Complete Time: :46 pkl 09/10 01:32 Order name: EKG; Complete Time: 01:33 pkl 09/10 03:29 Order name: CONS Physician Consult EDMS 09/10 03:29 Order name: Heart Healthy EDMO Administered Medications: 00:05 Discontinued: NS 0.9% 1000 ml IV at 125 ml/hr continuous pkl 09/09 23:46 Drug: NS 0.9% 1000 ml Route: IV; Rate: 125 ml/hr; Site: Port-a-cath; ld1 09/10 00:18 Follow up: IV Status: Order to discontinue infusion; IV Intake: 100ml ld1 09/09 23:46 Drug: morphine 4 mg Route: IVP; Site: Port-a-cath; ld1 09/10 00:18 Follow up: Response: No adverse reaction ld1 09/09 23:46 Drug: Zofran (Ondansetron) 4 mg Route: IVP; Site: Port-a-cath; ld09/10 00:18 Follow up: Response: No adverse reaction ld1 00:26 Drug: Ativan (LORazepam) 1 mg Route: IVP; Site: Port-a-cath; ld1 01:00 Follow up: Response: No adverse reaction bb 01:06 Drug: morphine 4 mg Route: IVP; Site: Port-a-cath; ld1 02:00 Follow up: Response: No adverse reaction bb 01:55 Drug: Ativan (LORazepam) 1 mg Route: IVP; Site: Port-a-cath; bb 02:30 Follow up: Response: No adverse reaction bb 03:00 Drug: morphine 4 mg Route: IVP; Site: Port-a-cath; bb 03:24 Not Given (Hemodynamic Parameters): Lopressor (metoprolol) 5 mg IVP once; Hold for SBP bb <100 or HR <60. Disposition Summary: 09/10/21 03:07 Hospitalization Ordered Hospitalization Status: Observation pkl Provider: Amber Steiner pkl Condition: Stable(09/10/21 03:07) pkl Problem: new(09/10/21 03:07) pkl Symptoms: are unchanged(09/10/21 03:07) pkl Bed/Room Type: Standard pkl Location: Telemetry/MedSurg (observation)(09/10/21 20:44) cg Room Assignment: [facility](09/10/21 20:44) cg Diagnosis - Chest pain. Elevated Tropnin pkl Forms: - Medication Reconciliation Form pkl - SBAR form pkl Signatures: Dispatcher [employer] EDMS Jay Kebede MD MD pkl Donna White RN RN Cely Ashton RN RN ss Garcia, Cindy, RN RN cg Dibbern, Lauren, RN RN ld1 Corrections: (The following items were deleted from the chart) 00:12 01 23:19 D-DIMER+COAG.LAB.BRZ ordered. EDMO EDMS 09/10 03:03 02:59 Home pkl pkl 03:03 02:59 new pkl pkl 03:03 02:59 have improved pkl pkl 03:03 02:59 Stable pkl pkl 03:03 02:59 Chest pain. Anxiety disorder. Chronic pain pkl pkl 12:37 03:07 Telemetry/MedSurg (observation) pkl ss 12:37 03:07 pkl ss 16:35 12:37 Telemetry/MedSurg (Inpatient) ss ss 16:35 12:37 205 ss ss 20:44 16:35 [facility] [[email or web address]] ER HOLD ss cg 20:44 16:35 ERHOLD- ss cg
--- NOTE | 2021-09-10 03:00 | ER ---
Nurse's Notes [facility] Name: Anisha Lindsay Age: 56 yrs Sex: Female : 1965 Arrival Date: 09/09/2021 Time: 22:34 Bed 23 Private MD: Diagnosis: Chest pain. Elevated Tropnin Presentation: 09/09 22:50 Chief complaint: Patient states: I began having chest pain today around 1700. Pt is ld1 saying she hurts all over. SpO2 upon arrival 100%. Pt is visibly jittery, unable to stay still. Stated she has a pain pump and receives fentanyl "but still having severe pain." Stated she may be going into "withdrawal". Coronavirus screen: At this time, the client does not indicate any symptoms associated with coronavirus-19. Ebola Screen: No symptoms or risks identified at this time. Initial Sepsis Screen: Does the patient meet any 2 criteria? No. Patient's initial sepsis screen is negative. Does the patient have a suspected source of infection? No. Patient's initial sepsis screen is negative. Risk Assessment: Do you want to hurt yourself or someone else? Patient reports no desire to harm self or others. Onset of symptoms was September 09, 2021. 22:50 Method Of Arrival: Ambulatory ld1 22:50 Acuity: CHEN 3 ld1 Triage Assessment: 22:52 General: Appears in no apparent distress. uncomfortable, Behavior is anxious, crying, ld1 fussy, inappropriate for age. Pain: Complains of pain in low back area, chest and abdomen. Neuro: Level of Consciousness is awake, alert, obeys commands, Oriented to person, place, time, situation. Cardiovascular: Capillary refill < 3 seconds Patient's skin is warm and dry. Rhythm is regular. Respiratory: Airway is patent Respiratory effort is even, labored, Respiratory pattern is regular, symmetrical. Historical: - Allergies: 22:52 Adhesives; ld1 22:52 Celebrex; ld1 22:52 Demerol; ld1 - PMHx: 22:52 Adenocarcinoma of the Lungs; CHF; Anxiety; CSF leak; COPD; Hypertension; ld1 Hypothyroidism; Myocardial infarction; osteo arthirtis; pericardial effusion; pericarditis; Renal Disease; Rheumatoid Arthritis; Stage 4 Lung Cencer- currently on Chemo; Depression; - Immunization history:: Adult Immunizations up to date, Client reports receiving the 2nd dose of the Covid vaccine. - Social history:: Smoking status: Patient denies any tobacco usage or history of. Patient/guardian denies using alcohol. Screenin/06 00:02 Abuse screen: Denies threats or abuse. Nutritional screening: No deficits noted. ld1 Tuberculosis screening: No symptoms or risk factors identified. Fall Risk Secondary diagnosis (15 points) RA. IV access (20 points). Ambulatory Aid- Crutches/Cane/Walker (15 pts). Assessment: 09/09 23:55 General: Appears uncomfortable, obese, Behavior is anxious, restless, Patient noted ld1 bouncing both legs repetitvely. Pain: Complains of pain in "all of my joints" Pain radiates to "everywhere" Pain began suddenly, today. Neuro: No deficits noted. Cardiovascular: Patient's skin is warm and dry. Rhythm is sinus rhythm Chest pain is described as mild. Respiratory: No deficits noted. Musculoskeletal: No deficits noted. 09/10 00:26 Reassessment: Patient and/or family updated on plan of care and expected duration. Pain ld1 level reassessed. Patient is alert, oriented x 3, equal unlabored respirations, skin warm/dry/pink. Patient states symptoms have not improved. 02:00 Reassessment: Patient and/or family updated on plan of care and expected duration. Pain bb level reassessed. Patient is alert, oriented x 3, equal unlabored respirations, skin warm/dry/pink. Patient states feeling better. Patient states symptoms have improved. 03:19 Reassessment: No changes from previously documented assessment. Patient and/or family bb updated on plan of care and expected duration. Pain level reassessed. Patient is alert, oriented x 3, equal unlabored respirations, skin warm/dry/pink. General: Appears in no apparent distress. Behavior is calm. Vital Signs: 09/09 22:50 BP 187 / 113; Pulse 98; Resp 24; Temp 98.0(O); Pulse Ox 100% on R/A; Weight 92.53 kg; ld1 Height 5 ft. 3 in. (160.02 cm); Pain 8/10; 09/10 00:03 BP 168 / 98; Pulse 92; Pulse Ox 99% ; ld1 00:28 BP 164 / 90; Pulse 84; ld1 02:55 BP 164 / 93; ds4 09/09 22:50 Body Mass Index 36.14 (92.53 kg, 160.02 cm) ld1 ED Course: 09/09 22:34 Patient arrived in ED. wm 22:52 Triage completed. ld1 22:52 Arm band placed on right wrist. ld1 22:59 Jay Kebede MD is Attending Physician. pkl 23:36 XRAY Chest (1 view) In Process Unspecified. EDMS 23:46 Accessed Port-a-Cath. using accessed w/ # 20 Kahn needle, Clean \\T\\ dry. Dressing ld1 intact. Good blood return. Flushes easily. 09/10 00:02 Patient has correct armband on for positive identification. Placed in gown. Bed in low ld1 position. Call light in reach. Side rails up X 1. event marketing intern on. Pulse ox on. NIBP on. 00:03 Patient maintains SpO2 saturation greater than 95% on room air. ld1 00:28 COVID-19/FLU A+B (Document "Date of Onset" if Symptomatic) Sent. lt3 01:06 COVID-19/FLU A+B (Document "Date of Onset" if Symptomatic) Sent. ld1 01:42 Repeat lab(s) drawn. by me, sent to lab. bb 02:13 EKG done, by ED staff, reviewed by Jay Kebede MD. lt3 03:06 Amber Steiner MD is Hospitalizing Provider. pkl 23:39 Anil Martinez, ALEX is Primary Nurse. mr2 Administered Medications: 00:05 Discontinued: NS 0.9% 1000 ml IV at 125 ml/hr continuous pkl 09/09 23:46 Drug: NS 0.9% 1000 ml Route: IV; Rate: 125 ml/hr; Site: Port-a-cath; ld1 09/10 00:18 Follow up: IV Status: Order to discontinue infusion; IV Intake: 100ml ld1 09/09 23:46 Drug: morphine 4 mg Route: IVP; Site: Port-a-cath; ld1 09/10 00:18 Follow up: Response: No adverse reaction ld1 09/09 23:46 Drug: Zofran (Ondansetron) 4 mg Route: IVP; Site: Port-a-cath; ld1 09/10 00:18 Follow up: Response: No adverse reaction ld1 00:26 Drug: Ativan (LORazepam) 1 mg Route: IVP; Site: Port-a-cath; ld1 01:00 Follow up: Response: No adverse reaction bb 01:06 Drug: morphine 4 mg Route: IVP; Site: Port-a-cath; ld1 02:00 Follow up: Response: No adverse reaction bb 01:55 Drug: Ativan (LORazepam) 1 mg Route: IVP; Site: Port-a-cath; bb 02:30 Follow up: Response: No adverse reaction bb 03:00 Drug: morphine 4 mg Route: IVP; Site: Port-a-cath; bb 03:24 Not Given (Hemodynamic Parameters): Lopressor (metoprolol) 5 mg IVP once; Hold for SBP bb <100 or HR <60. Intake: 00:18 IV: 100ml; Total: 100ml. ld1 Outcome: 02:59 Discharge ordered by MD. pkl 03:07 Decision to Hospitalize by Provider. pkl 09/11 01:34 Patient left the ED. ds4 Signatures: Dispatcher [employer] EDMS Jay Kebede MD MD pkl Donna White RN RN Samir Spence ds4 Elsa Hassan RN RN ld1 Lianet Gu Mike, RN RN 2 Shantel Villarreal [facility]
[2021-09-10] MEDS ORDERED: ALBUTEROL 2.5 MG/3 ML NEB SOL NEB PRN ×2 (03:24→17:00)
[2021-09-10] MEDS ORDERED: ACETAMINOPHEN 500 MG TAB PO PRN (03:24)
[2021-09-10] MEDS ORDERED: MORPHINE 2 MG/ML SYR IV PRN (03:24)
--- NOTE | 2021-09-10 03:38 | P.HP ---
Certification for Inpatient Patient admitted to: Observation With expected LOS: >2 Midnights Patient will require the following post-hospital care: None Practitioner: I am a practitioner with admitting privileges, knowledge of patient current condition, hospital course, and medical plan of care. Services: Services provided to patient in accordance with Admission requirements found in Title 42 Section 412.3 of the Code of Federal Regulations Patient History Date of Service: 09/10/21 Reason for admission: Chest pain History of Present Illness: 56-year-old female with past medical history of hypertension, CAD, diastolic CHF, rheumatoid arthritis, chronic pain syndrome, history of lung cancersstage IV adenocarcinoma previously treated with chemotherapy, chronic kidney disease with slowly improving baseline creatinine presented to the hospital because of substernal chest pain associated with nausea vomiting. She also states chest pain is radiating to the left side. she is unsure if she had cath in the past. She state her uncontrolled pain symptoms makes her shakes . Onset of symptoms was about 4 hrs prior to presentation. She describes recent increased anxiety and shakiness after recently reduced fentanyl pump dosage. Initial cardiac enzymes with was normal. Repeat troponin has increased to 0.15. She has been admitted for possible rule out acute coronary syndrome. EKG remains unchanged. There is slight elevation in D-dimer at 970. Chest x-ray shows right hemidiaphragm elevation with Chemo-Port in situ, no pneumonic infiltrate noted Allergies adhesive tape Allergy (Verified 06/18/20 21:23) itchiness and blister celecoxib [From Celebrex] Allergy (Verified 06/18/20 21:23) water retention, swelling meperidine [From Demerol] Allergy (Verified 06/18/20 21:23) Hives Home Medications: Sertraline [Zoloft*] 50 mg PO BEDTIME 01/28/19 Temazepam 30 mg PO BEDTIME 01/28/19 Trazodone HCl [Desyrel] 100 mg PO BID 01/28/19 Gabapentin 400 mg PO DAILY 03/17/19 Levothyroxine [Synthroid*] 50 mcg PO DAILY 03/17/19 Ipratropium/Albuterol Sulfate [Iprat-Albut 0.5-3(2.5) mg/3 ml] 3 ml NEB Q4H PRN 06/06/19 Metoprolol Succinate [Toprol Xl*] 50 mg PO BID 06/06/19 Ondansetron [Zofran (Odt)*] 4 mg PO Q8HP PRN 06/06/19 Diphenox/Atropine [Lomotil*] 1 tab PO QID PRN 11/06/19 Benzonatate [Tessalon Perle*] 100 mg PO Q6HP PRN #15 cap 11/08/19 Levalbuterol HCl [Xopenex] 3 ml IH TID PRN #90 vial.neb 11/08/19 Acetam/Caff/Butal [Fioricet*] 1 tab PO BID PRN 12/07/19 Furosemide [Lasix*] 40 mg PO DAILY 12/07/19 Potassium Chloride 20 meq PO SEECOM 12/07/19 Dexlansoprazole [Dexilant] 60 mg PO DAILY 06/18/20 predniSONE [Prednisone*] 5 mg PO DAILY 06/18/20 predniSONE [Deltasone*] 10 mg PO DAILY #7 tab 06/19/20 - Past Medical/Surgical History Diabetic: No -: Rheumatoid arthritis -: GERD -: HTN -: Stage IV lung cancer -: CAD, chronic diastolic CHF -: Chronic pericardial effusion-Chronic Pericarditis -: Hypothyroidism -: Depression with anxiety -: GERD with history of Haque's esophagus -: Chronic pain with pain pump -: Chronic steroid use -: Chronic renal disease stage 3 -: Hysterectomy -: Total L knee replacement -: lap mehul, lap appy -: pain pump R abdomen -: L lobe thyroidectomy -: R Upper lung lobectomy -: tonsillectomy -: 3 corneal transplants left Psychosocial/ Personal History: Patient lives at home - Family History Father -: Heart disease, Other (see notes) Notes: rheumatoid arthritis Mother -: Cancer Notes: : breast and throat ca Brother -: Cancer Notes: 2 brothers from ca lung ca, colon ca Sister -: Cancer Notes: lung ca - Social History Smoking Status: Former smoker Smoking therapy provided: No Alcohol use: No CD- Drugs: No Caffeine use: Yes Place of Residence: Home Review of Systems 10-point ROS is otherwise unremarkable Physical Examination - Physical Exam General: Alert, In no apparent distress, Oriented x3, Cooperative, Obese HEENT: Atraumatic, Normocephalic, PERRLA Neck: Supple, 2+ carotid pulse no bruit, JVD not distended Respiratory: Clear to auscultation bilaterally, Normal air movement Cardiovascular: No edema, Normal pulses, Regular rate/rhythm, Normal S1 S2 Gastrointestinal: Normal bowel sounds, Soft and benign, Non-distended Musculoskeletal: No clubbing, No swelling Integumentary: No rashes, No breakdown, No significant lesion Neurological: Normal speech, Normal strength at 5/5 x4 extr, Normal tone - Studies Laboratory Data (last 24 hrs) 09/09/21 23:39: PT 9.8, INR 0.85 09/09/21 23:39: WBC 5.30, Hgb 11.9 L, Hct 36.2, Plt Count 146 L 09/09/21 23:39: Sodium 142, Potassium 4.0, BUN 28 H, Creatinine 1.61 H, Glucose 152 H, Magnesium 2.2, Total Bilirubin 0.2, AST 13 L, ALT 19, Alkaline Phosphatase 92 Assessment and Plan - Problems (Diagnosis) (1) Chest pain Onset Date: 07/02/16 Current Visit: No Status: Acute (2) Elevated troponin Onset Date: 07/02/16 Current Visit: No Status: Acute (3) CAD (coronary artery disease) Current Visit: No Status: Chronic Qualifiers: (4) Hypertension Current Visit: No Status: Chronic (5) Lung cancer Current Visit: No Status: Chronic Qualifiers: (6) Rheumatoid arthritis Current Visit: No Status: Chronic - Plan Atypical chest pain Elevated troponin History of lung cancer Rheumatoid arthritis Chronic pain syndrome Hypertension Plan We will admit to observation with 2 continue serial sets of cardiac enzymes Replete nitro glycerin patch, start beta-blockers, statins Obtain lipid panel Previous echo 2 years ago shows EF of 55%, no urgent need for repeat now Will consult cardiology in a.m. if further rise in troponin Given history of lung cancer, will obtain CTA to rule out pulmonary embolism Creatinine much improved compared to previous baseline, start gentle IV fluids since anticipated contrast exposure DVT prophylaxis with Lovenox - Advance Directives Does patient have a Living Will: Yes Does patient have a Durable POA for Healthcare: Yes
[2021-09-10] MEDS ORDERED: METOPROLOL TAR 50 MG TAB PO SCH (03:59)
[2021-09-10] MEDS: METOCLOPRAMIDE 10 MG/2mL INJ IV SCH (04:00)
[2021-09-10] MEDS: NITROGLYCERIN 0.1 MG/HR (2.5 MG) PATCH TD SCH ×2 (04:00→09:00)
[2021-09-10] MEDS ORDERED: NA CHLORIDE 0.9% 1,000 ML IV SCH ×2 (04:00→09:00)
[2021-09-10] MEDS ORDERED: NA CHLORIDE 0.9% 50 ML ONE (04:09)
[2021-09-10] MEDS ORDERED: NITROGLYCERIN 1 GM PKT TD ONE (04:28)
[2021-09-10 04:44] LABS: CKMB Creatine Kinase MB 1.2 ng/mL (1.0-3.6)
[2021-09-10] MEDS ORDERED: TRAMADOL HCL 50 MG TAB PO PRN (05:57)
[2021-09-10] MEDS ORDERED: HYDROCODONE/APAP 7.5/325 MG TAB PO PRN (05:57)
--- NOTE | 2021-09-10 06:08 | P.PN ---
Subjective Date of Service: 09/10/21 Primary Care Provider: Dr. Wolfe; Cardiology-Dr. Whipple; Chronic pain- Yarsanism Chief Complaint: Chest pain Subjective: Other (Patient with anxiety. Patient reports being uncomfortable due to pain. Pain pump was adjusted yesterday. She reports since pain pump adjusted she has not been comfortable. Chest pain improved.) Physical Examination - Studies Laboratory Data (last 24 hrs) 09/09/21 23:39: PT 9.8, INR 0.85 09/09/21 23:39: WBC 5.30, Hgb 11.9 L, Hct 36.2, Plt Count 146 L 09/09/21 23:39: Sodium 142, Potassium 4.0, BUN 28 H, Creatinine 1.61 H, Glucose 152 H, Magnesium 2.2, Total Bilirubin 0.2, AST 13 L, ALT 19, Alkaline Phosphatase 92 Assessment & Plan Discharge Plan: Home Plan to discharge in: 48 Hours Physician Review Additional Text: COVID: negative CXR: unremarkable Physical exam: General: Patient alert, cooperative. Anxiety noted HEENT: Atraumatic, Normocephalic, PERRLA Neck: Supple, 2+ carotid pulse no bruit, JVD not distended Respiratory: Clear to auscultation bilaterally, Normal air movement Cardiovascular: No edema, Normal pulses, Regular rate/rhythm, Normal S1 S2 Gastrointestinal: Normal bowel sounds, Soft and benign, Non-distended Musculoskeletal: No clubbing, No swelling Integumentary: No rashes, No breakdown, No significant lesion Neurological: Normal speech, Normal strength at 5/5 x4 extr, Normal tone Impression: Chest pain with elevated troponin, History of CAD suspect NSTEMI HTN Chronic diastolic CHF Chronic renal disease stage III History of stage IV lung cancer Rheumatoid arthritis on disease modifying medication in chronic steroid Chronic pain with pain pump Depression with anxiety GERD Chronic headaches Plan: Chest pain with elevated troponin, History of CAD suspect NSTEMI: Troponin elevated this morning. Will start Lovenox at 1 mg/kg subcu twice daily, adjust per renal function. Continue Nitropaste. Increase metoprolol to 100 mg 1 pill twice daily. Continue Lipitor. Continue aspirin. Will start low-dose IV fluids due to her chronic renal disease in preparation for possible heart catheterization. Will discuss with cardiology further. We will keep the patient n.p.o. in preparation for possible heart catheterization. Will check echocardiogram. D-dimer was elevated. Will check VQ scan. Await further recommendations from cardiology. HTN: Increase metoprolol to 100 mg 1 pill twice daily. Will monitor and adjust medication. Chronic diastolic CHF: Continue Lasix 20 mg daily and potassium supplementation. Chronic renal disease stage III: Creatinine at baseline. Patient to be started on IV fluids at low-dose in preparation for possible heart catheterization. History of stage IV lung cancer: Overall stable. Will monitor closely. D-dimer was elevated. Will check VQ scan. Chest x-ray unremarkable. Rheumatoid arthritis on disease modifying medication and chronic steroid: Continue with prednisone 5 mg daily. Patient takes rituximab at home. Chronic pain with fentanyl pain pump: Patient had her pain pump adjusted yesterday. Patient with increased pain. Will provide IV fentanyl as needed. Will provide other medication as well. Patient will need to follow-up with chronic pain management to adjust her pain pump back to her previous settings. Continue gabapentin 800 mg 1 pill 3 times a day. Continue Zanaflex 4 mg 1 pill twice daily. Depression with anxiety: Continue Zoloft 150 mg daily. Continue temazepam 30 mg at bedtime. Continue trazodone 100 mg 3 times a day. Will provide medication for anxiety. GERD: Continue Dexilant 30 mg daily. Continue with Phenergan and Zofran as needed. Continue Bentyl 20 mg 4 times a day. Chronic headaches: Continue with sumatriptan 100 mg daily. CODE STATUS: Full code DVT prophylaxis: Lovenox Advance care [id number] minutes: Home at discharge Time Spent Managing Pts Care (In Minutes): 55
[2021-09-10] MEDS ORDERED: DIPHENOX/ATROP SULF 1 TAB PO PRN (08:11)
[2021-09-10] MEDS ORDERED: HOME MED 1 EA UNK (Gabapentin [Gabapentin] 600 MG Tablet) PO PRN (08:11)
[2021-09-10] MEDS ORDERED: PROMETHAZINE 25 MG TABLET PO PRN (08:11)
[2021-09-10] MEDS ORDERED: FENTANYL CITR 100 MCG/2 ML IV PRN (08:31)
[2021-09-10] MEDS ORDERED: PANTOPRAZOLE 40MG TABLET PO ONE (08:38)
[2021-09-10] MEDS ORDERED: PROMETHAZINE INJ 25 MG/ML AMP ONE (08:38)
[2021-09-10] MEDS ORDERED: DICYCLOMINE HCL 10 MG CAP ONE (08:39)
[2021-09-10] MEDS ORDERED: ASPIRIN EC 81 MG TAB PO ONE (08:39)
[2021-09-10] MEDS ORDERED: FUROSEMIDE 40 MG TABLET ONE (08:39)
[2021-09-10] MEDS ORDERED: POTASSIUM CL SA 10 MEQ TAB PO ONE (08:39)
[2021-09-10] MEDS ORDERED: predniSONE 10 MG TAB ONE (08:39)
[2021-09-10] MEDS ORDERED: ENOXAPARIN 40 MG/0.4 ML SQ ONE (08:40)
[2021-09-10] MEDS ORDERED: PROMETHAZINE 25 MG TABLET ONE (08:43)
[2021-09-10] MEDS: DICYCLOMINE HCL 10 MG CAP PO SCH ×2 (08:43→13:00)
[2021-09-10] MEDS: ASPIRIN EC 81 MG TAB PO SCH (08:44)
[2021-09-10] MEDS: PANTOPRAZOLE 40MG TABLET PO SCH (08:44)
[2021-09-10] MEDS ORDERED: TIZANIDINE HCL 4 MG PO SCH (09:00)
[2021-09-10] MEDS ORDERED: ENOXAPARIN 60 MG/0.6 ML SQ ONE (09:00)
[2021-09-10] MEDS: FUROSEMIDE 20 MG TABLET PO SCH (09:00)
[2021-09-10] MEDS: HOME MED 1 EA UNK (Trazodone Hcl [Desyrel] 100 MG Tablet) PO SCH ×2 (09:00→13:57)
[2021-09-10] MEDS ORDERED: COLESTIPOL 1 GM TAB PO SCH (09:00)
[2021-09-10] MEDS: SUMATRIPTAN SUCCI 50 MG TAB PO SCH (09:00)
[2021-09-10] MEDS: BUTALB PO SCH ×2 (09:00→13:00)
[2021-09-10] MEDS: predniSONE 5 MG TAB PO SCH (09:00)
[2021-09-10] MEDS ORDERED: ENOXAPARIN 40 MG/0.4 ML SQ SCH (09:00)
[2021-09-10] MEDS: CAFFEINE PO SCH ×2 (09:00→13:00)
[2021-09-10] MEDS: [UNRECOGNIZED DRUG - OTHER] PO SCH ×2 (09:00→13:00)
[2021-09-10] MEDS ORDERED: HOME MED 1 EA UNK (Potassium Chloride [Potassium Chloride] 20 MEQ Tablet.Er) PO SCH (09:00)
[2021-09-10] MEDS ORDERED: NYSTATIN PWDR 100000 UNIT/GM TOP SCH ×2 (09:00)
[2021-09-10] MEDS: ACETAMINOPHEN PO SCH ×2 (09:00→13:00)
[2021-09-10] MEDS ORDERED: INSULIN GLARGINE 100 UNIT/ML SQ ONE (09:06)
[2021-09-10] MEDS ORDERED: INSULIN -REGULAR HUMAN 50 UNIT/0.5 ML ML ONE (09:06)
[2021-09-10] MEDS ORDERED: FENTANYL 25 MCG/PATCH TD ONE (09:55)
[2021-09-10] MEDS ORDERED: FENTANYL CITR 100 MCG/2 ML ONE ×5 (10:02→21:09)
--- NOTE | 2021-09-10 11:58 | RAD REPORT ---
EXAM DESCRIPTION: Ermelinda Single View09/09/2021 11:36 pm CLINICAL HISTORY: Chest pain COMPARISON: May 2021 FINDINGS: Chronic left upper lobe opacity. The lungs appear clear of acute infiltrate. The heart is is enlarged. Central venous catheter in owen ce
--- NOTE | 2021-09-10 12:13 | RAD REPORT ---
EXAM DESCRIPTION: NM - Vent Perfusion VQ Scan - 09/10/2021 11:47 am CLINICAL HISTORY: Shortness of breath elevated D-dimer COMPARISON: September 09, 2020 chest x-ray TECHNIQUE: 15.1 Mci [id number] was administered by inhalation. First breath, equilibrium, and washout images of the lungs obtained 7.3 millicuries Technetium-99 MAA was administered intravenously. Anterior, posterior, lateral and ob lique views of the lungs were taken. FINDINGS: Moderate defect of radiotracer involves the left upper lobe on perfusion sequences. This a elza is smaller on ventilation sequences. The remainder of the lungs demonstrate symmetric radiotracer activity on ventilation and perfusion se quences IMPRESSION: Mismatched perfusion defect within the left lung place this patient as having an interm ediate intermediate probability for a pulmonary embolus
[2021-09-10] MEDS: METOPROLOL TAR 50 MG TAB PO SCH ×2 (13:29→20:26)
[2021-09-10] MEDS ORDERED: METOPROLOL TAR 50 MG TAB ONE ×2 (13:30→20:42)
--- NOTE | 2021-09-10 13:47 | ECHO ---
HEIGHT: 5 ft 3 in WEIGHT: 203 lb 14.841 oz DATE OF STUDY: 09/10/[address]: Vik Acosta DO 2-DIMENSIONAL: YES M.MODE: YES DOPPLER: YES COLOR FLOW: YES TDS: YES PORTABLE: NO DEFINITY: NO BUBBLE STUDY: NO DIAGNOSIS: ELEVATED TROPONIN, CORONARY ARTERY DISEASE, CONGESTIVE HEART FAILURE, HYPERTENSION CARDIAC HISTORY: CATHERIZATION: SURGERY: PROSTHETIC VALVE: PACEMAKER: MEASUREMENTS (cm) DIASTOLIC (NORMALS) SYSTOLIC (NORMALS) IVSd 0.9 (0.6-1.2) LA Diam 4.3 (1.9-4.0) LVEF 59% LVIDd 5.7 (3.5-5.7) LVIDs 3.9 (2.0-3.5) %FS 31% LVPWd 1.0 (0.6-1.2) Ao Diam 2.6 (2.0-3.7) 2 DIMENSIONAL ASSESSMENT: RIGHT ATRIUM: NORMAL LEFT ATRIUM: ENLARGED RIGHT VENTRICLE: NORMAL LEFT VENTRICLE: NORMAL TRICUSPID VALVE: MITRAL VALVE: PULMONIC VALVE: NORMAL AORTIC VALVE: PERICARDIAL EFFUSION: NONE AORTIC ROOT: NORMAL LEFT VENTRICULAR WALL MOTION: NORMAL DOPPLER/COLOR FLOW: SEE BELOW COMMENTS: NORMAL LEFT VENTRICULAR EJECTION FRACTION 55-60% WITH NORMAL WALL MOTION. MILD TRICUSPID, MITRAL AND AORTIC REGURGITATION. LEFT ATRIAL ENLARGEMENT. MODERATE PULMONARY HYPERTENSION. RIGHT VENTRICULAR SYSTOLIC PRESSURE OF 50-55 mmHg. TECHNOLOGIST: Minerva SADLER
[2021-09-10] MEDS ORDERED: NA CHLORIDE 0.9% 500 ML ONE (14:02)
[2021-09-10] MEDS ORDERED: LIDOCAINE 1% 20 ML MDV ONE (14:45)
[2021-09-10] MEDS ORDERED: HEPA 1000U/500MLS 2,000 UNIT/1,000 ML BAG IV ONE (14:45)
[2021-09-10] MEDS ORDERED: MIDAZOLAM HCL 2 MG/2 ML INJ ONE (14:46)
[2021-09-10] MEDS ORDERED: VERAPAMIL HCL 10 MG/4 ML VIAL IV ONE (14:48)
[2021-09-10] MEDS ORDERED: ATROPINE SULF 1 MG/10 ML SYR IV ONE (14:48)
[2021-09-10] MEDS ORDERED: NITROGLYCERIN 100 MCG/ML SYR (for cath lab use only) IV ONE (14:48)
[2021-09-10] MEDS ORDERED: HEPARIN 5000 UNIT/ML 1 ML VIAL ONE (14:48)
[2021-09-10] MEDS ORDERED: HEPARIN/D5W 25,000 UNIT/500 ML BAG IV PRN (16:00)
--- NOTE | 2021-09-10 16:34 | OP ---
Date of Procedure: 09/10/2021 Surgeon: ALMA GROVES Procedures Performed: 1.Selective coronary angiogram. 2.Left heart catheterization. Indication: Non-ST elevation myocardial infarction. Access: Right radial artery 6-Turkish was closed with TR band. Total amount of contrast used was 19 cc. Complications: None. Anesthesia: Total sedation time was 20 minutes. Description Of Procedure: After risks, benefits, and alternatives were explained, the patient agreed to the procedure and signed informed consent. The patient was brought into the cardiac catheterizat ion laboratory, prepped and draped in usual sterile fashion. Then, we accessed the right radial sobeida ry using pediatric micropuncture kit, placed a 6-Turkish Slender sheath and took a 5-Turkish [place] 4.0 catheter into the aortic root, engaged the left main and right coronary artery, took standard views a nd then pushed catheter over the wire into the LV, took the LVEDP and pullback did not record any gra dient. Catheter was removed. Sheath was removed, placed TR band with good hemostasis. Findings: 1.Left main; large, normal. 2.LAD; very large and normal. Normal diagonal branches and DANIEL-3 flow in the artery. 3.Left circumflex; large and codominant with DANIEL-3 flow throughout and there is a mid to distal lef t circumflex, 40% lesion. Otherwise, the OMs are normal and OMs are very large. 4.RCA; small, however, is codominant, supplies the inferior wall partially and is normal. 5.LVEDP elevated at 22 mmHg. Conclusion: 1.Mild left circumflex stenosis, otherwise normal coronary arteries. 2.Elevated LVEDP at 22 mmHg. Recommendations: 1.Admit, obtain echocardiogram, and trend 2 more sets of cardiac enzymes. 2.Recommend IV heparin for anticoagulation for the next 24 hours and then switching to oral agent. Likely a pulmonary embolus is present. SR/MODL Voice ID: [id number] Report ID: [id number]
[2021-09-10] MEDS ORDERED: DICYCLOMINE HCL 10 MG CAP PO PRN (16:46)
[2021-09-10] MEDS ORDERED: HYDRALAZINE HCL 20 MG/ML VIAL IV PRN (16:49)
--- NOTE | 2021-09-10 16:54 | CON ---
Date of Consultation: 09/10/2021 Reason For Consultation: Non-ST elevation myocardial infarction. History Of Present Illness: A 56-year-old female comes in with chest pain, retrosternal, along with shortness of breath. Noted to have history of hypertension, coronary artery disease and diastolic he art failure as well as chronic kidney disease, rheumatoid arthritis and lung cancer for which she is in remission. She had a V/Q scan, which was a moderate probability for PE. Past Medical History: As outlined above in HPI. Medications: Refer to reconciliation sheet for detailed list. Allergies: CELECOXIB, MEPERIDINE. Family History: Lung cancer in all members of family. Social History: Does not smoke or drink. Does not use any drugs. Review of Systems: All systems reviewed and they were negative except for what mentioned in HPI. Physical Examination: Vital Signs: Reviewed. Head and Neck: Pupils are equal, reactive to light. Intact eye movements. No JVD. No cervical lym phadenopathy. Neck is supple. Thyroid is not enlarged. Lungs: Clear to auscultation bilaterally. No rhonchi, rales, or crackles. No accessory muscle use. Heart: Regular rate and rhythm. No extra sounds. Abdomen: Soft, nontender. Bowel sounds positive. No organomegaly. No masses or hernia. No rigidi ty or rebound. Extremities: No clubbing or cyanosis. Intact pulses. Skin: No rashes. Neurologic: Alert, awake, oriented x3. No acute focal deficits appreciated. Investigations: Hemoglobin 11.9. Creatinine is 1.61. Troponin 1.05. Assessment And Recommendations: 1.Non-ST elevation myocardial infarction. The patient is n.p.o. We will proceed with coronary sb ogram and percutaneous coronary intervention if indicated. 2.Elevated D-dimer and medium probability of pulmonary embolism on V/Q scan. If coronary angiogram does not reveal any significant coronary artery disease, then a troponin leak will be due to a pulmon jordin embolism. The patient will require full anticoagulation at any rate, which we will plan after th e coronary angiogram is done. Please obtain echocardiogram. SR/MODL Voice ID: [id number] Report ID: [id number]
[2021-09-10] MEDS ORDERED: ONDANSETRON 4 MG/2 ML VIAL ONE (18:14)
[2021-09-10] MEDS: ONDANSETRON 4 MG/2 ML VIAL IV PRN (18:15)
[2021-09-10] MEDS: FENTANYL CITR 100 MCG/2 ML IV PRN ×2 (18:16→21:15)
--- NOTE | 2021-09-10 18:49 | P.CNS ---
Date of Consult: 09/10/21 Reason for Consult: ROSALVA vs CKD stage 3 Requesting Physician: Amber Steiner Primary Care Provider: Dr. Wolfe; Cardiology-Dr. Whipple; Chronic pain- Evangelical Chief Complaint: Chest pain History of Present Illness: 56 y o female pt with hx of CAD, HTN, DM, HLD, admitted for management of chest poain. she had c/o chest pain and has been on routine care by cardiology. She had elevated cr of 1.6 and this is deemed due to HTN and DM so she was asked to be evaluated by cardiology. She denies any issues with n/v, diarrhea, cough, fever, chills, rigor. Allergies adhesive tape Allergy (Verified 06/18/20 21:23) itchiness and blister celecoxib [From Celebrex] Allergy (Verified 06/18/20 21:23) water retention, swelling meperidine [From Demerol] Allergy (Verified 06/18/20 21:) Hives Home Medications: Temazepam 30 mg PO BEDTIME PRN 01/28/19 Gabapentin 400 mg PO BID PRN 03/17/19 Metoprolol Succinate [Toprol Xl*] 200 mg PO DAILY 06/06/19 Furosemide [Lasix*] 40 mg PO DAILY PRN 12/07/19 Potassium Chloride 20 meq PO DAILY PRN 12/07/19 predniSONE [Prednisone*] 5 mg PO DAILY PRN 06/18/20 Colestipol HCl [Colestid] 1 gm PO BID PRN 09/10/21 Fentanyl/Bupivacaine/Ns/Pf [Fentanyl 5 Mcg-Bupiv 0.04%-Ns] 5 mg .ROUTE PRN PRN 09/10/21 Sumatriptan Succinate [Imitrex] 100 mg PO PRN 09/10/21 Tizanidine HCl [Zanaflex] 100 mg PO BEDTIME PRN 09/10/21 - Past Medical/Surgical History Diabetic: No -: Rheumatoid arthritis -: GERD -: HTN -: Stage IV lung cancer -: CAD, chronic diastolic CHF -: Chronic pericardial effusion-Chronic Pericarditis -: Hypothyroidism -: Depression with anxiety -: GERD with history of Haque's esophagus -: Chronic pain with pain pump -: Chronic steroid use -: Chronic renal disease stage 3 -: Hysterectomy -: Total L knee replacement -: lap mehul, lap appy -: pain pump R abdomen -: L lobe thyroidectomy -: R Upper lung lobectomy -: tonsillectomy -: 3 corneal transplants left Psychosocial/ Personal History: Patient lives at home - Family History Father Medical History: Heart disease, Other (see notes) Notes: rheumatoid arthritis Mother Medical History: Cancer Notes: : breast and throat ca Brother Medical History: Cancer Notes: 2 brothers from ca lung ca, colon ca Sister Medical History: Cancer Notes: lung ca - Social History Smoking Status: Unknown if ever smoked Alcohol use: No CD- Drugs: No Caffeine use: Yes Place of Residence: Home Review of Systems General: Unremarkable Eyes: Unremarkable ENT: Unremarkable Respiratory: Unremarkable Cardiovascular: Chest Pain Gastrointestinal: Unremarkable Genitourinary: Unremarkable Musculoskeletal: Unremarkable Integumentary: Unremarkable Neurological: Unremarkable Physical Examination Temp Pulse Resp BP Pulse Ox 99.1 F 72 18 157/81 H 98 09/10/21 15:55 09/10/21 17:45 09/10/21 18:16 09/10/21 17:45 09/10/21 18:16 General: Alert, Oriented x3 HEENT: Atraumatic, Normocephalic Neck: Supple Respiratory: Clear to auscultation bilaterally Cardiovascular: Regular rate/rhythm, Normal S1 S2 Gastrointestinal: Soft and benign Neurological: Normal strength at 5/5 x4 extr, Normal affect Laboratory Data (last 24 hrs) 09/09/21 23:39: PT 9.8, INR 0.85 09/09/21 23:39: WBC 5.30, Hgb 11.9 L, Hct 36.2, Plt Count 146 L 09/09/21 23:39: Sodium 142, Potassium 4.0, BUN 28 H, Creatinine 1.61 H, Glucose 152 H, Magnesium 2.2, Total Bilirubin 0.2, AST 13 L, ALT 19, Alkaline Phosphatase 92 Conclusions/Impression: 1.ROSALVA vs CKD stage 3: her present kidney function abnormality is deemed due to long standing HTN and DM but with present chest pain, there could be component of cardiorenal syndrome. we will monitor her renal function per daily labs and avoid exposure to nephrotoxins. we will dose meds for egfr. we will obtain renal US to evaluate echogenicitynand size of kidneys. 2.Chest pain: management as per cardiology. 3.HTN: w will monitor vitals per unit protocol and continue home antihypertensive meds. 4.DM type 2: we will continue SSI and carb restricted diet for glucose control.
[2021-09-10] MEDS ORDERED: ATORVASTATIN 20 MG TAB ONE (19:53)
[2021-09-10] MEDS ORDERED: TEMAZEPAM 15 MG CAP ONE (19:53)
[2021-09-10 20:47] VITALS: O2SAT 95
[2021-09-10] MEDS ORDERED: ACETAMINOPHEN 325 MG TABLET ONE (20:55)
[2021-09-10] MEDS ORDERED: TEMAZEPAM 15 MG CAP PO SCH (21:00)
[2021-09-10] MEDS ORDERED: SERTRALINE HCL 50 MG TAB PO SCH (21:00)
[2021-09-10] MEDS ORDERED: ENOXAPARIN 100 MG/ML SYR SQ SCH (21:00)
[2021-09-10] MEDS ORDERED: ATORVASTATIN 40 MG TAB PO SCH (21:00)
[2021-09-10] MEDS ORDERED: GABAPENTIN 400 MG CAP PO PRN (21:16)
--- NOTE | 2021-09-10 22:00 | RAD REPORT ---
EXAM DESCRIPTION: US - Renal Ultrasound-Complete - 09/10/2021 9:19 pm CLINICAL HISTORY: eval of CKD. COMPARISON: Abdomen Pelvis Wo Contrast dated 05/25/2021 FINDINGS: The right kidney measures 8.1 x 4.3 x 3.3 cm. The left kidney measures 8.4 x 4.3 x 3.6 cm . Renal cortical thickness and echogenicity are normal. No hydronephrosis or suspicious renal mass. No bladder wall thickening or mass. No intraluminal stone or mass. IMPRESSION: No hydronephrosis or suspicious renal mass. No other significant findings.
[2021-09-10] MEDS ORDERED: TIZANIDINE 4 MG TABLET PO PRN (22:02)
[2021-09-11] MEDS ORDERED: HEPARIN 5000 UNIT/ML 1 ML VIAL ONE (00:11)
[2021-09-11] MEDS ORDERED: FENTANYL CITR 100 MCG/2 ML ONE (00:11)
[2021-09-11] MEDS: FENTANYL CITR 100 MCG/2 ML IV PRN ×2 (00:20→04:03)
[2021-09-11 00:51] LABS: Absolute Lymphocytes (CBC) 2.1 K/uL (0.7-4.9); Hematocrit 36.7 % (36.0-45.0); Lymphocytes % 25.5 % (15.3-44.8); MPV 8.5 fL (7.6-11.3); RBC Red Blood Cell Count 4.02 M/uL (3.86-4.86)
[2021-09-11 01:48] VITALS: BMI 36.1
[2021-09-11] MEDS: METOCLOPRAMIDE 10 MG/2mL INJ IV SCH (04:00)
[2021-09-11] MEDS: PANTOPRAZOLE 40MG TABLET PO SCH (05:32)
[2021-09-11 05:42] LABS: Absolute Lymphocytes (CBC) 2.4 K/uL (0.7-4.9); Hematocrit 35.1 % (36.0-45.0); Lymphocytes % 36.7 % (15.3-44.8); MPV 8.4 fL (7.6-11.3); RBC Red Blood Cell Count 3.88 M/uL (3.86-4.86)
--- NOTE | 2021-09-11 05:57 | P.DS ---
Admission Date: 09/10/21 Discharge Date: 09/11/21 Primary Care Provider: Dr. Wolfe; Cardiology-Dr. Groves; Chronic pain- Taoist Disposition: ROUTINE DISCHARGE Discharge Condition: GOOD Reason for Admission: Chest pain Consultations: Cardiology-Dr. Groves Pulmonary-Dr. Valente Nephrology-Dr. Renee Procedures: COVID: negative CXR: unremarkable ECHO: MEASUREMENTS (cm) DIASTOLIC (NORMALS) SYSTOLIC (NORMALS) IVSd 0.9 (0.6-1.2) LA Diam 4.3 ( 1.9-4.0) LVEF 59% LVIDd 5.7 (3.5-5.7) LVIDs 3.9 (2.0-3.5) %FS 31% LVPWd 1.0 (0.6-1.2) Ao Diam 2.6 (2.0-3.7) 2 DIMENSIONAL ASSESSMENT: RIGHT ATRIUM: NORMAL LEFT ATRIUM: ENLARGED RIGHT VENTRICLE: NORMAL LEFT VENTRICLE: NORMAL TRICUSPID VALVE: MITRAL VALVE: PULMONIC VALVE: NORMAL AORTIC VALVE: PERICARDIAL EFFUSION: NONE AORTIC ROOT: NORMAL LEFT VENTRICULAR WALL MOTION: NORMAL DOPPLER/COLOR FLOW: SEE BELOW COMMENTS: NORMAL LEFT VENTRICULAR EJECTION FRACTION 55-60% WITH NORMAL WALL MOTION. MILD TRICUSPID, MITRAL AND AORTIC REGURGITATION. LEFT ATRIAL ENLARGEMENT. MODERATE PULMONARY HYPERTENSION. RIGHT VENTRICULAR SYSTOLIC PRESSURE OF 50-55 mmHg. Heart Cath: Date of Procedure: 09/10/2021 Surgeon: ALMA GROVES Procedures Performed: 1. Selective coronary angiogram. 2. Left heart catheterization. Indication: Non-ST elevation myocardial infarction. Access: Right radial artery 6-Swazi was closed with TR band. Total amount of contrast used was 19 cc. Complications: None. Anesthesia: Total sedation time was 20 minutes. Description Of Procedure: After risks, benefits, and alternatives were explained, the patient agreed to the procedure and signed informed consent. The patient was brought into the cardiac catheterization laboratory, prepped and draped in usual sterile fashion. Then, we accessed the right radial artery using pediatric micropuncture kit, placed a 6-Swazi Slender sheath and took a 5-Swazi Anton 4.0 catheter into the aortic root, engaged the left main and right coronary artery, took standard views and then pushed catheter over the wire into the LV, took the LVEDP and pullback did not record any gradient. Catheter was removed. Sheath was removed, placed TR band with good hemostasis. Findings: 1. Left main; large, normal. 2. LAD; very large and normal. Normal diagonal branches and DANIEL-3 flow in the artery. 3. Left circumflex; large and codominant with DANIEL-3 flow throughout and there is a mid to distal left circumflex, 40% lesion. Otherwise, the OMs are normal and OMs are very large. 4. RCA; small, however, is codominant, supplies the inferior wall partially and is normal. 5. LVEDP elevated at 22 mmHg. Conclusion: 1. Mild left circumflex stenosis, otherwise normal coronary arteries. 2. Elevated LVEDP at 22 mmHg. V/Q scan: COMPARISON: September 09, 2020 chest x-ray TECHNIQUE: 15.1 Mci Xe133 was administered by inhalation. First breath, equilibrium, and washout images of the lungs obtained 7.3 millicuries Technetium-99 MAA was administered intravenously. Anterior, posterior, lateral and oblique views of the lungs were taken. FINDINGS: Moderate defect of radiotracer involves the left upper lobe on perfusion sequences. This area is smaller on ventilation sequences. The remainder of the lungs demonstrate symmetric radiotracer activity on ventilation and perfusion sequences IMPRESSION: Mismatched perfusion defect within the left lung place this patient as having an intermediate intermediate probability for a pulmonary embolus Medical Problem List: Chest pain, shortness of breath with elevated troponin/history of CAD likely ischemic demand related to pulmonary embolism with positive VQ scan status post heart catheterization showing mild left circumflex stenosis otherwise normal coronaries HTN Chronic diastolic CHF Chronic renal disease stage III History of stage IV lung cancer Rheumatoid arthritis on chronic steroid Chronic pain with pain pump Depression with anxiety GERD Chronic headaches Hyperlipidemia Brief History of Present Illness: 56-year-old female with past medical history of hypertension, CAD, diastolic CHF, rheumatoid arthritis, chronic pain syndrome, history of lung cancersstage IV adenocarcinoma previously treated with chemotherapy, chronic kidney disease with slowly improving baseline creatinine presented to the hospital because of substernal chest pain associated with nausea vomiting. She also states chest pain is radiating to the left side. she is unsure if she had cath in the past. She state her uncontrolled pain symptoms makes her shakes . Onset of symptoms was about 4 hrs prior to presentation. She describes recent increased anxiety and shakiness after recently reduced fentanyl pump dosage. Initial cardiac enzymes with was normal. Repeat troponin has increased to 0.15. She has been admitted for possible rule out acute coronary syndrome. EKG remains unchanged. There is slight elevation in D-dimer at 970. Chest x-ray shows right hemidiaphragm elevation with Chemo-Port in situ, no pneumonic infiltrate noted Hospital Course: Patient presented with chest pain patient found to have elevated troponin. Patient with CAD. Patient was admitted for further evaluation and treatment. Patient seen and evaluated by cardiology. Cardiology recommended heart catheterization to further evaluate. Heart catheterization showed mild circumflex stenosis otherwise normal coronaries. VQ scan showed intermediate pulmonary embolism. Elevated troponin likely related to pulmonary embolism. Patient was started on heparin drip. Patient did well overnight. Patient without significant chest pain or shortness of breath. Troponin improved. Patient did well. Echocardiogram shows ejection fraction 59% with moderate pulmonary hypertension. Patient has been transitioned to Eliquis. At discharge patient will continue with Eliquis 10 mg twice daily for 7 days then 5 mg twice daily for at least 3 to 6 months. Recommend follow-up with pulmonology as an outpatient to follow-up his hospitalization and to continue her care. Recommend follow-up with cardiology to further monitor and address her CAD. Education on pulmonary embolism, Eliquis will be provided. Will verify if patient will be able to afford medication prior to discharge. Patient with hypertension. Blood pressure stable. Recommend to maintain blood pressure less than 130/80. Further adjustment can be done by her PCP. Patient with chronic diastolic CHF. Ejection fraction around 59%. Moderate pulmonary hypertension noted. Patient takes Lasix 40 mg daily as needed and potassium supplementation 20 mEq when taking Lasix. She will continue with her regimen. Continue 1500 cc/day fluid restriction and low-salt diet. Monitor her weight daily. If her weight increases by more than 5 pounds she may continue with Lasix as needed. Follow-up with pulmonology to address her pulmonary hypertension. Recommend follow-up with cardiology to further monitor her CHF. Patient with chronic renal disease stage III. Overall stable. Nephrology was consulted. No adjustments in her medication required. Recommend no further use of nonsteroidal anti-inflammatories. Future medications may need to be renally dosed. Recommend to recheck labBMP in 1 week to monitor progress. Recommend follow-up with her robotype operator to further monitor and address. Patient with history of stage IV lung cancer. Overall stable. Patient reports she is in remission. Follow-up with oncology as directed. Patient with rheumatoid arthritis on chronic steroid. Patient may continue with prednisone 5 mg daily as directed. Patient also takes Colestid 1 g twice daily as needed. Follow-up with rheumatology to further monitor and address. Patient with chronic pain with fentanyl pain pump. Patient recently had her pump adjusted. Patient plans to follow-up with chronic pain management soon to adjust her pain pump back to her previous settings due to increased pain. At discharge she will continue with her current medications including gabapentin 40 mg twice daily as needed. Continue with chronic pain management. Patient with depression with anxiety. At discharge she will continue with her medication temazepam 30 mg at bedtime for insomnia. Patient with chronic headaches. At discharge she may continue with Imitrex 100 mg upon onset of migraine. Patient with hyperlipidemia. LDL 144. At discharge, recommend to start Lipitor 10 mg daily. Recommend to recheck CMP and fasting lipid panel to monitor progress. Further adjustment can be done by her PCP. Patient with GERD. At discharge will recommend to continue Protonix 40 mg daily. Vital Signs/Physical Exam: Temp Pulse Resp BP Pulse Ox 97.8 F 77 18 110/57 L 97 09/11/21 04:00 09/11/21 04:00 09/11/21 04:03 09/11/21 04:00 09/11/21 04:03 General: Alert, In no apparent distress, Oriented x3, Cooperative HEENT: Atraumatic Neck: Supple Respiratory: Clear to auscultation bilaterally, Normal air movement Cardiovascular: Normal pulses, Regular rate/rhythm Gastrointestinal: Normal bowel sounds Musculoskeletal: No erythema, No tenderness, No warmth Integumentary: No erythema, No warmth, No cyanosis Neurological: Normal speech, Normal strength at 5/5 x4 extr, Normal tone Laboratory Data at Discharge: WBC 8.10 K/uL (4.3-10.9) D 09/11/21 00:20 Hgb 12.0 g/dL (12.0-15.0) 09/11/21 00:20 Hct 36.7 % (36.0-45.0) 09/11/21 00:20 Plt Count 167 K/uL (152-406) 09/11/21 00:20 PT 9.8 SECONDS (9.5-12.5) 09/09/21 23:39 INR 0.85 09/09/21 23:39 Sodium 142 mmol/L (136-145) 09/09/21 23:39 Potassium 4.0 mmol/L (3.5-5.1) 09/09/21 23:39 BUN 28 mg/dL (7-18) H 09/09/21 23:39 Creatinine 1.61 mg/dL (0.55-1.3) H 09/09/21 23:39 Glucose 152 mg/dL (74-106) H 09/09/21 23:39 Magnesium 2.2 mg/dL (1.8-2.4) 09/09/21 23:39 Total Bilirubin 0.2 mg/dL (0.2-1.0) 09/09/21 23:39 AST 13 U/L (15-37) L 09/09/21 23:39 ALT 19 U/L (12-78) 09/09/21 23:39 Alkaline Phosphatase 92 U/L (45-117) 09/09/21 23:39 Troponin I 4.03 ng/mL (0.0-0.045) H* 09/10/21 19:14 Home Medications: Temazepam 30 mg PO BEDTIME PRN 01/28/19 Gabapentin 400 mg PO BID PRN 03/17/19 Metoprolol Succinate [Toprol Xl*] 200 mg PO DAILY 06/06/19 Furosemide [Lasix*] 40 mg PO DAILY PRN 12/07/19 Potassium Chloride 20 meq PO DAILY PRN 12/07/19 predniSONE [Prednisone*] 5 mg PO DAILY PRN 06/18/20 Colestipol HCl [Colestid] 1 gm PO BID PRN 09/10/21 Fentanyl/Bupivacaine/Ns/Pf [Fentanyl 5 Mcg-Bupiv 0.04%-Ns] 5 mg .ROUTE PRN PRN 09/10/21 Sumatriptan Succinate [Imitrex] 100 mg PO PRN 09/10/21 Apixaban [Eliquis] 5 mg PO SEECOM #75 tablet 09/11/21 Atorvastatin Calcium [Lipitor] 10 mg PO BEDTIME #30 tab 09/11/21 Pantoprazole [Protonix Tab] 40 mg PO DAILY #30 tab 09/11/21 New Medications: Apixaban [Eliquis] 5 mg PO SEECOM #75 tablet Atorvastatin Calcium [Lipitor] 10 mg PO BEDTIME #30 tab Pantoprazole [Protonix Tab] 40 mg PO DAILY #30 tab Physician Discharge Instructions: Patient presented with chest pain patient found to have elevated troponin. Patient with CAD. Patient was admitted for further evaluation and treatment. Patient seen and evaluated by cardiology. Cardiology recommended heart catheterization to further evaluate. Heart catheterization showed mild circumflex stenosis otherwise normal coronaries. VQ scan showed intermediate pulmonary embolism. Elevated troponin likely related to pulmonary embolism. Patient was started on heparin drip. Patient did well overnight. Patient without significant chest pain or shortness of breath. Troponin improved. Patient did well. Echocardiogram shows ejection fraction 59% with moderate pulmonary hypertension. Patient has been transitioned to Eliquis. At discharge patient will continue with Eliquis 10 mg twice daily for 7 days then 5 mg twice daily for at least 3 to 6 months. Recommend follow-up with pulmonology as an outpatient to follow-up his hospitalization and to continue her care. Recommend follow-up with cardiology to further monitor and address her CAD. Education on pulmonary embolism, Eliquis will be provided. Will verify if patient will be able to afford medication prior to discharge. Patient with hypertension. Blood pressure stable. Recommend to maintain blood pressure less than 130/80. Further adjustment can be done by her PCP. Patient with chronic diastolic CHF. Ejection fraction around 59%. Moderate pulmonary hypertension noted. Patient takes Lasix 40 mg daily as needed and potassium supplementation 20 mEq when taking Lasix. She will continue with her regimen. Continue 1500 cc/day fluid restriction and low-salt diet. Monitor her weight daily. If her weight increases by more than 5 pounds she may continue with Lasix as needed. Follow-up with pulmonology to address her pulmonary hypertension. Recommend follow-up with cardiology to further monitor her CHF. Patient with chronic renal disease stage III. Overall stable. Nephrology was consulted. No adjustments in her medication required. Recommend no further use of nonsteroidal anti-inflammatories. Future medications may need to be renally dosed. Recommend to recheck labBMP in 1 week to monitor progress. Recommend follow-up with her robotype operator to further monitor and address. Patient with history of stage IV lung cancer. Overall stable. Patient reports she is in remission. Follow-up with oncology as directed. Patient with rheumatoid arthritis on chronic steroid. Patient may continue with prednisone 5 mg daily as directed. Patient also takes Colestid 1 g twice daily as needed. Follow-up with rheumatology to further monitor and address. Patient with chronic pain with fentanyl pain pump. Patient recently had her pump adjusted. Patient plans to follow-up with chronic pain management soon to adjust her pain pump back to her previous settings due to increased pain. At discharge she will continue with her current medications including gabapentin 40 mg twice daily as needed. Continue with chronic pain management. Patient with depression with anxiety. At discharge she will continue with her medication temazepam 30 mg at bedtime for insomnia. Patient with chronic headaches. At discharge she may continue with Imitrex 100 mg upon onset of migraine. Patient with hyperlipidemia. LDL 144. At discharge, recommend to start Lipitor 10 mg daily. Recommend to recheck CMP and fasting lipid panel to monitor progress. Further adjustment can be done by her PCP. Patient with GERD. At discharge will recommend to continue Protonix 40 mg daily. Diet: AHA Activity: Ad moe Followup: Jeanmarie Mensah MD [Primary Care Provider] - Time spent managing pt's care (in minutes): 55
[2021-09-11 06:03] LABS: Potassium 3.7 mmol/L (3.5-5.1)
[2021-09-11 06:04] LABS: Albumin 2.7 g/dL (3.4-5.0); Bilirubin Total 0.3 mg/dL (0.2-1.0)
[2021-09-11 06:05] LABS: Troponin I 2.07 ng/mL (0.0-0.045)
[2021-09-11] MEDS ORDERED: FENTANYL CITR 100 MCG/2 ML IV PRN (06:53)
--- NOTE | 2021-09-11 07:58 | P.CNS ---
Date of Consult: 09/11/21 Reason for Consult: ROSALVA/ CKD Requesting Physician: Vik Acosta Primary Care Provider: Dr. Wolfe; Cardiology-Dr. Whipple; Chronic pain- Nondenominational Chief Complaint: Chest pain History of Present Illness: 56-year-old female with past medical history of hypertension, CAD, diastolic CHF, rheumatoid arthritis, chronic pain syndrome, history of lung cancersstage IV adenocarcinoma previously treated with chemotherapy, chronic kidney disease with slowly improving baseline creatinine presented to the hospital because of substernal chest pain associated with nausea vomiting. She also states chest pain is radiating to the left side. she is unsure if she had cath in the past. She state her uncontrolled pain symptoms makes her shakes . Onset of symptoms was about 4 hrs prior to presentation. She describes recent increased anxiety and shakiness after recently reduced fentanyl pump dosage. Initial cardiac enzymes with was normal. Repeat troponin has increased to 0.15. She has been admitted for possible rule out acute coronary syndrome. EKG remains unchanged. There is slight elevation in D-dimer at 970. Chest x-ray shows right hemidiaphragm elevation with Chemo-Port in situ, no pneumonic infiltrate noted. 00:06 This 56 yrs old Female presents to ER via Ambulatory with complaints of Chest Pain > 30 pkl y/o, Shortness Of Breath, Vomiting, Headache. 00:06 The patient or guardian reports chest pain that is located primarily in the substernal pkl area. Onset: just prior to arrival. The pain does not radiate. Associated signs and symptoms: Pertinent positives: nausea, vomiting. The chest pain is described as dull. The patient has experienced similar episodes in the past, a few times. Patient saw her pain management physician earlier and had her dosage of pain pump adjusted. Allergies adhesive tape Allergy (Verified 06/18/20 21:23) itchiness and blister celecoxib [From Celebrex] Allergy (Verified 06/18/20 21:23) water retention, swelling meperidine [From Demerol] Allergy (Verified 06/18/20 21:23) Hives Home medications list reviewed: Yes Home Medications: Temazepam 30 mg PO BEDTIME PRN 01/28/19 Gabapentin 400 mg PO BID PRN 03/17/19 Metoprolol Succinate [Toprol Xl*] 200 mg PO DAILY 06/06/19 Furosemide [Lasix*] 40 mg PO DAILY PRN 12/07/19 Potassium Chloride 20 meq PO DAILY PRN 12/07/19 predniSONE [Prednisone*] 5 mg PO DAILY PRN 06/18/20 Colestipol HCl [Colestid] 1 gm PO BID PRN 09/10/21 Fentanyl/Bupivacaine/Ns/Pf [Fentanyl 5 Mcg-Bupiv 0.04%-Ns] 5 mg .ROUTE PRN PRN 09/10/21 Sumatriptan Succinate [Imitrex] 100 mg PO PRN 09/10/21 Apixaban [Eliquis] 5 mg PO SEECOM #75 tablet 09/11/21 Atorvastatin Calcium [Lipitor] 10 mg PO BEDTIME #30 tab 09/11/21 Pantoprazole [Protonix Tab] 40 mg PO DAILY #30 tab 09/11/21 - Past Medical/Surgical History Diabetic: No -: Rheumatoid arthritis -: GERD -: HTN -: Stage IV lung cancer -: CAD, chronic diastolic CHF -: Chronic pericardial effusion-Chronic Pericarditis -: Hypothyroidism -: Depression with anxiety -: GERD with history of Haque's esophagus -: Chronic pain with pain pump -: Chronic steroid use -: Chronic renal disease stage 3 -: Hysterectomy -: Total L knee replacement -: lap mehul, lap appy -: pain pump R abdomen -: L lobe thyroidectomy -: R Upper lung lobectomy -: tonsillectomy -: 3 corneal transplants left Psychosocial/ Personal History: Patient lives at home - Family History Father Medical History: Heart disease, Other (see notes) Notes: rheumatoid arthritis Mother Medical History: Cancer Notes: : breast and throat ca Brother Medical History: Cancer Notes: 2 brothers from ca lung ca, colon ca Sister Medical History: Cancer Notes: lung ca - Social History Smoking Status: Unknown if ever smoked Alcohol use: No CD- Drugs: No Caffeine use: Yes Place of Residence: Home Review of Systems 10-point ROS is otherwise unremarkable General: Weakness Cardiovascular: Chest Pain Physical Examination Temp Pulse Resp BP Pulse Ox 97.8 F 77 18 110/57 L 97 09/11/21 04:00 09/11/21 04:00 09/11/21 04:03 09/11/21 04:00 09/11/21 04:03 General: In no apparent distress, Oriented x3, Cooperative HEENT: Atraumatic Neck: Supple Respiratory: Clear to auscultation bilaterally Cardiovascular: No edema, Regular rate/rhythm Gastrointestinal: Normal bowel sounds, Non-distended, No ascites Musculoskeletal: No contractures Integumentary: No rashes Neurological: Normal speech Blood work reviewed in the chart. Imagings Data: EXAM DESCRIPTION: US - Renal Ultrasound-Complete - 09/10/2021 9:19 pm CLINICAL HISTORY: eval of CKD. COMPARISON: Abdomen Pelvis Wo Contrast dated 05/25/2021 FINDINGS: The right kidney measures 8.1 x 4.3 x 3.3 cm. The left kidney measures 8.4 x 4.3 x 3.6 cm. Renal cortical thickness and echogenicity are normal. No hydronephrosis or suspicious renal mass. No bladder wall thickening or mass. No intraluminal stone or mass. IMPRESSION: No hydronephrosis or suspicious renal mass. No other significant findings. EXAM DESCRIPTION: RADChest Single View09/09/2021 11:36 pm CLINICAL HISTORY: Chest pain COMPARISON: May 2021 FINDINGS: Chronic left upper lobe opacity. The lungs appear clear of acute infiltrate. The heart is is enlarged. Central venous catheter in place Conclusions/Impression: CKD III in the setting of HTN & DM. -No NSAIDs HTN with CKD/ CHF -Continue Metoprolol Diastolic CHF, chronic -Continue Lasix -Continue Metoprolol DM II with CKD -RISS Moderate malnutrition -Consider Nepro Anemia in chronic illness -Monitor H&H Thank you kindly for the consultation. Case reviewed with Dr. Acosta
[2021-09-11] MEDS: SUMATRIPTAN SUCCI 50 MG TAB PO SCH (08:24)
[2021-09-11] MEDS: FUROSEMIDE 20 MG TABLET PO SCH (08:25)
[2021-09-11] MEDS: ASPIRIN EC 81 MG TAB PO SCH (08:25)
[2021-09-11] MEDS: METOPROLOL TAR 50 MG TAB PO SCH (08:25)
[2021-09-11] MEDS: predniSONE 5 MG TAB PO SCH (08:26)
[2021-09-11] MEDS ORDERED: POTASSIUM CL SA 10 MEQ TAB PO SCH (09:00)
[2021-09-11] MEDS ORDERED: APIXABAN 5 MG TABLET PO SCH (09:00)
[2021-09-11 09:44] VITALS: BP 115/62; TEMP 97.3
[2021-09-11] MEDS: ONDANSETRON 4 MG/2 ML VIAL IV PRN (10:38)
[2021-09-11] MEDS ORDERED: HEPARIN 500 UNIT/5 ML SYR IV ONE (13:00)
--- NOTE | 2021-09-12 16:36 | PN ---
Date of Progress Note: 09/11/2021 Admitted for what appeared to be chest pain, non STEMI, catheterization by Dr. Whipple yesterday, was perfectly normal. Overnight, she had no complaint. Vital signs stable. Telemetry is normal. V/Q s can showed PE. She is on heparin. Insertion site and her catheterization is as normal without any h ematoma. The case was discussed with Dr. Acosta. She will go home on [facility]. We will see her as n esperanza. OBDULIA/ANUPAM Voice ID: [id number] Report ID: [id number]
== END 2021-09-11 13:13 | disposition home or self-care (01) ==
LOC: ER 22:33 → ERHOLD 09-10 03:31 → 2ND 09-11 00:31
PROVIDERS: ADMIT Internal Medicine; ATTEND Family Medicine
DX: I26.99 Other pulmonary embolism without acute cor pulmonale (principal); R77.8 Other specified abnormalities of plasma proteins; I27.20 Pulmonary hypertension, unspecified; I25.10 Atherosclerotic heart disease of native coronary artery without angina pectoris; I13.0 Hypertensive heart and chronic kidney disease with heart failure and stage 1 through stage 4 chronic kidney disease, or unspecified chronic kidney disease; E11.22 Type 2 diabetes mellitus with diabetic chronic kidney disease; I50.32 Chronic diastolic (congestive) heart failure; N18.30 Chronic kidney disease, stage 3 unspecified; D63.1 Anemia in chronic kidney disease; M06.9 Rheumatoid arthritis, unspecified; G89.29 Other chronic pain; F41.8 Other specified anxiety disorders; K21.9 Gastro-esophageal reflux disease without esophagitis; R51.9 Headache, unspecified; E78.5 Hyperlipidemia, unspecified; I31.3 Pericardial effusion (noninflammatory); I31.9 Disease of pericardium, unspecified; E89.0 Postprocedural hypothyroidism; K22.70 Barrett's esophagus without dysplasia; E44.0 Moderate protein-calorie malnutrition; Z68.36 Body mass index [BMI] 36.0-36.9, adult; Z20.822 Contact with and (suspected) exposure to COVID-19; Z79.52 Long term (current) use of systemic steroids; Z88.6 Allergy status to analgesic agent; Z91.048 Other nonmedicinal substance allergy status; Z85.118 Personal history of other malignant neoplasm of bronchus and lung; Z90.710 Acquired absence of both cervix and uterus; Z90.49 Acquired absence of other specified parts of digestive tract; Z90.2 Acquired absence of lung [part of]; Z96.652 Presence of left artificial knee joint; Z82.49 Family history of ischemic heart disease and other diseases of the circulatory system; Z82.61 Family history of arthritis; Z80.3 Family history of malignant neoplasm of breast; Z80.0 Family history of malignant neoplasm of digestive organs; Z80.1 Family history of malignant neoplasm of trachea, bronchus and lung
CPT/HCPCS: 96361; 93005 ×2; 93306; 85025 ×3; 80048; 36415 ×2; 83735; 82550; 85610; 80061; 85379; 80076; 85730; 84484 ×5; 82553; 80053; 83880; 0240U; 71045; 93458; 76770; 94760; 78582; 96375; 96374; 99285; C1893; J2765; J1644 ×4; J1650; J2250; J3010 ×8; J1642; J7040; J7030; J2405 ×3; A9558; A9540; G0378 ×3; J2550; J7512; Q0169

== ENCOUNTER 2022-06-25 11:29 | Day surgery (SDC) | payer OTHER ==
[2022-06-24 12:15] LABS: Absolute Lymphocytes (CBC) 1.5 K/uL (0.7-4.9); Hematocrit 35.5 % (36.0-45.0); Lymphocytes % 28.3 % (15.3-44.8); MCV 88.7 fL (80-100); MPV 8.7 fL (7.6-11.3)
[2022-06-24 12:21] LABS: Protime INR 1.1
[2022-06-24 12:28] LABS: Potassium 4.7 mmol/L (3.5-5.1)
--- NOTE | 2022-06-24 12:30 | RAD REPORT ---
EXAM DESCRIPTION: RAD - Chest Pa And Lat (2 Views) - 06/24/2022 11:56 am CLINICAL HISTORY: Pre op pending heart cath COMPARISON: Portable chest 09/09/2021, lateral chest 06/19/2020 TECHNIQUE: Frontal and lateral views of the chest were obtained. FINDINGS: The lungs are clear. Interstitial pattern matches comparison. Right hemidiaphragm elevati on matches prior imaging. This is secondary to the history of right upper lobectomy. Scarring is seen in the left apex. Right costophrenic angle blunting is chronic. Right-sided Port-A-Cath is in place. Heart size is normal and central vasculature is within normal limits. No pleural effusion or pneumo thorax seen. No acute bony finding noted. No aortic abnormality. IMPRESSION: No acute cardiopulmonary process. No significant change from comparison study.
[~2022-06-25 11:29] MED LIST: ATROPINE SULF 1 MG/10 ML SYR IV ONE; FENTANYL CITR 100 MCG/2 ML ONE; HEPA 1000U/500MLS 3,000 UNIT/1,500 ML BAG IV ONE; HEPARIN 10,000 UNIT/10 ML VIAL IV ONE; HEPARIN 5000 UNIT/ML 1 ML VIAL ONE; LIDOCAINE 1% MPF 30 ML VIAL ONE; MIDAZOLAM HCL 2 MG/2 ML INJ ONE; NITROGLYCERIN 100 MCG/ML SYR (for cath lab use only) IV ONE; NITROGLYCERIN/D5W 25 MG/250 ML BTL IV ONE; VERAPAMIL HCL 10 MG/4 ML VIAL IV ONE
[2022-06-25] MEDS ORDERED: NA CHLORIDE 0.9% 0 ML ONE (11:31)
[2022-06-25] MEDS ORDERED: MIDAZOLAM HCL 2 MG/2 ML INJ ONE (12:00)
[2022-06-25] MEDS ORDERED: FENTANYL CITR 100 MCG/2 ML ONE (12:00)
[2022-06-25] MEDS ORDERED: NA CHLORIDE 0.9% 500 ML ONE (12:14)
[2022-06-25 15:39] VITALS: O2SAT 98
[2022-06-25 18:23] VITALS: BP 113/84; TEMP 98.7
--- NOTE | 2022-06-25 21:20 | OP ---
Date of Procedure: 06/25/2022 Surgeon: ALMA GROVES Procedure Performed: 1.Left heart catheterization. 2.Right heart catheterization. 3.Selective coronary angiogram. Indication: 1.Unstable angina. 2.Pulmonary hypertension. Access: 1.Right radial artery 6-Estonian closed with TR band. 2.Right IJ 7-Estonian closed with manual pressure. Complications: None. Bleeding: Less than 10 mL. Anesthesia: Total sedation time was 45 minutes, used fentanyl and Versed. Description Of Procedure: After risks, benefits, and alternatives were explained, patient agreed to procedure and signed informed consent. Patient was brought into the cardiac catheterization laborato , prepped and draped in sterile fashion. Then, I accessed right IJ using the ultrasound guidance a nd micropuncture kit and placed a 7-Estonian Bolivar sheath and then I accessed the right radial arter y using pediatric micropuncture kit and placed a 6-Estonian Slender sheath and I took 7-Estonian Florence-Tyrese z catheter into the RA, RV, PA and wedge and documented waveform and pressure. I then performed ther modilutional cardiac output and then I removed the Florence. Then, I took a 5-Estonian JR4 catheter throug h the radial artery into the aortic root, engaged left main and the right coronary artery, took stand janeth views and then the catheter was pushed into the LV over the wire and measured the LVEDP and pullb ack did not record any gradient. Then I removed the catheter and the sheath and placed TR band with good hemostasis. Findings: 1.Coronary angiogram. a.Left main is normal. b.LAD, moderate-sized vessel is normal. Normal diagonal branches. c.Left circumflex is normal. Normal OM branches. d.RCA is normal and no disease. e.Borderline LVEDP between 10 to 15 mmHg. 2.Right heart catheterization: RA pressure is 10. RV pressure is 41/4 with mean of 9. PA pressure is 38/15, mean of 24. Pulmonary wedge pressures of 13. Cardiac output is 5.56. Conclusion: 1.Normal coronary arteries. 2.Borderline pulmonary hypertension, not even mild but the mean is close to 25 mmHg and likely this is venous as the LVEDP and wedge is slightly elevated. Plan: Medical management with diuretics. SR/MODL Voice ID: [id number] Report ID: [id number]
== END 2022-06-25 17:36 | disposition home or self-care (01) ==
LOC: CCL 11:29
PROVIDERS: ATTEND Internal Medicine
DX: I20.0 Unstable angina (principal); I27.20 Pulmonary hypertension, unspecified; I12.9 Hypertensive chronic kidney disease with stage 1 through stage 4 chronic kidney disease, or unspecified chronic kidney disease; N18.30 Chronic kidney disease, stage 3 unspecified; E78.5 Hyperlipidemia, unspecified; I26.99 Other pulmonary embolism without acute cor pulmonale; K21.9 Gastro-esophageal reflux disease without esophagitis; Z79.01 Long term (current) use of anticoagulants; Z79.899 Other long term (current) drug therapy; Z88.8 Allergy status to other drugs, medicaments and biological substances; Z85.118 Personal history of other malignant neoplasm of bronchus and lung
CPT/HCPCS: 85025; 80048; 36415; 85610; 85730; 71046; 93460; 76937; C1893; Q9966; J1644 ×2; J2250; J3010; J7040

== ENCOUNTER 2023-06-19 19:07 | Emergency (ER) | payer OTHER ==
--- OUTSIDE RECORDS SUMMARY | 2023-06-19 19:11 | XMS REPORT | Clinical Summary ---
:1965 Author Organization [facility] MD [facility] Address [address] [place] [address] Care Team Providers Name Role Phone Osman Watts MD Unavailable Kris Lund MD Primary Care Provider Allergies Active Allergy [...] of right lung 06/02/2018 Rheumatoid arthritis 06/02/2018 Surgical History Surgery Date Site/Laterality Comments APPENDECTOMY [...] Name Comments -Colon cancer Brother 1 Tenzin Young -Breast cancer Mother Misty Lane -Head and Neck Mother Misty Lane -Thoracic or Lung Sister Victory Chronister Relation Name Status Comments Brother 1 Tenzin Young Brother 2 Mane Young Mother [address]y [address] Sister Victory Chronister Social History Tobacco Use Types Packs/Day Years Used Date Smoking Tobacco: Former Cigarettes 1.5 10 09/1980 - 08/05/1999 Smokeless Tobacco: Never Alcohol Use Standard Drinks/Week Comments No 0 (1 standard drink = 0.6 oz pure alcoho l) Sex Assigned at Date Recorded Not on file Obstetrics History Last Filed Vital Signs Not on file Plan of Treatment Health Maintenance Due Date Last Done Comments COVID-19 Vaccination (#1) 02/11/1964 Results Not on fileafter 06/19/2022 Insurance Payer Benefit Plan / Subscriber ID Effective Dates Phone Addre ss Type Group MEDICARE MEDICARE PART [id number] 2013-Heidi [phone] [facility] Medicare A AND B t 2 SOLUTIONS [address] [place] [address] Care Teams Enterprise Application Administrator Relationship Specialty Start Date End Date Osman Watts, PCP - External Follow Up Critical Care MD [address] [facility] [address] [place] [address] Kris Lund MD PCP - General Thoracic Medicine 05/26/18 [facility] [place], [place] [id number]
--- OUTSIDE RECORDS SUMMARY | 2023-06-19 19:13 | XMS REPORT | Continuity of Care Document ---
:1965 Author Organization [facility] t Address [address] [place] [address] [address] [place] [address] Care Team Providers Name Role Phone Kris Lund MD Primary Care Physician OSMAN RICK Attending Clinician Unavailable Yessi Raymundo MA Attending Clinician Unavailable Zaynab Kat MA Attending Clinician Unavailable Ryan Attending Clinician Unavailable Tayler JOHNSON, Mercy Attending Clinician Unavailable Deandre ORDONEZ, Michelle Attending Clinician Elmer Harp MD Attending Clinician Enoch Posadas MD Attending Clinician Peña Reagan MD Attending Clinician Chanda Sullivan RN Attending Clinician Unavailable MD MICHELLE CARRERA Attending Clinician Unavailable JONE MCKEON Attending Clinician Unavailable COURTNEY SIDHU Attending Clinician Unavailable JERAMIE GUO Attending Clinician Unavailable Ryan Admitting Clinician Unavailable EONCH POSADAS Admitting Clinician Unavailable MD MICHELLE CARRERA Admitting Clinician Unavailable COURTNEY SIDHU Admitting Clinician Unavailable JERAMIE GUO Admitting Clinician Unavailable Payers Payer Name Policy Type Policy Number Effective Date Expiration Date S ource Problems Condition Condition Condition Status Onset Resolution Last Treating Co mments Source Name Details Category Date Date Treatment Clinician Date Weakness Weakness Disease Active 2021-09 [facility] of both of both 2-07 st legs legs 00:00: Hospita 00 l Severe Severe Disease Active 2021-09 [facility] hypoxemia hypoxemia 2-07 st 00:00: Hospita 00 l Syncope, Syncope, Disease Active 2021-09 Meth[facility] di unspecifie unspecifie [facility] st d syncope d syncope 00:00: Hosp ty type type 00 l 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 00:00: Hospita disease disease 00 l 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 00:00: Me dical l infusion l infusion 00 Ce nter pump, pump, initial initial encounter encounter Chronic Chronic Disease Active [facility] disorder disorder [facility] Pericardia Pericardia Disease Active M ethodi l effusion l effusion 9 st 00:00: Hospita 00 l Ataxia Ataxia Disease Active Methodi 6-13 st 00:00: Hospita 00 l Intractabl Intractabl Disease Active M ethodi e headache e headache 01-31 st 00:00: Hospita 00 l Rheumatoid Rheumatoid Disease Active 2017-09 M ethodi arthritis arthritis 0-10 st 00:00: Hospita 00 l 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 0-10 st disease disease 00:00: Hospita involving involving 00 l sen[place] seneca coronary coronary artery of artery of [place] seneca heart heart without without angina angina pectoris pectoris 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 [place] right 00 lung [facility] Rheumatoid Rheumatoid Disease Active U nivmary arthritis arthritis 9-28 ity of 00:00: [place] 00 MD [facility] Bilateral Bilateral Disease Active Met [facility] lung lung 8-17 st cancer cancer 00:00: Hospita 00 l Distal Distal Disease Active 2015-09 [facility] radius radius 1-15 st fracture, fracture, 00:00: Hosp ty left left 00 l Displaced Displaced Disease Active 2015-09 Met [facility] fracture fracture 1-10 st of distal of distal 00:00: Hosp ty end of end of 00 l left left radius radius Allergies, Adverse Reactions, Alerts Allergy Allergy Status Severity Reaction(s) Onset Inactive Treating Comm ents Source Name Type Date Date Clinician n Propensi Active ty to 5-17 adverse 00:00: reaction 00 to drug Demerol Propensi Active - Oral ty to 3-03 adverse 00:00: reaction 00 to drug Adhesive Propensi Active Rash [facility] adverse 00:00: Medical reaction 00 [place] Hmg-Coa Propensi Active Reductas ty to 1 e adverse 00:00: Inhibito reaction 00 rs to drug Celecoxi Propensi Active Swelling 2015-09 Meth sirena b ty to 09-14 st adverse 00:00: Hospita reaction 00 l s to drug Meperidi Propensi Active Hives 2015-09 Method i ne ty to 1-10 st adverse 00:00: Hospita reaction 00 l s to drug Celecoxi Propensi Active Swelling 2015-09 Univ ers b ty to 1-10 ity of adverse 00:00: [place] reaction 00 MD [facility] Meperidi Propensi Active Hives 2015-09 Univer s ne ty to 1-10 ity of adverse 00:00: [place] reaction 00 MD m[facility] Adhesive Propensi Active 2012-09 Method i Tape-Naye ty to 1-20 st icones adverse 00:00: Hospita reaction 00 l s to drug Adhesive Propensi Active 2012-09 Univer s Tape-Naye ty to 1-20 ity of icones adverse 00:00: [place] reaction 00 MD mary ward [facility] Celecoxi Propensi Active Swelling 2011-[address] [facility] b ty to 2-12 [facility] adverse 00:00: Medical reaction 00 [place] Meperidi Propensi Active Hives [facility] ty to 6-18 [facility] adverse 00:00: Medical reaction 00 [place] Family History Family Member Diagnosis Comments Start Date Stop Date Source Natural mother Cancer [facility] Natural mother -Breast cancer [facility] Natural mother -Head and Neck [facility] Natural sister Cancer [facility] Natural sister -Thoracic or Lung Uni versity [employer] [facility] [employer] [facility] [employer] [facility] Natural brother -Colon cancer [facility] [place] [facility] Natural brother [facility] Social History Social Habit Start Date Stop Date Quantity Comments Source Sexual orientation 2021-12-09 Heterosexual Meth odist 11:01:20 (finding) Hospital Gender identity 2021-03-31 Identifies as Method ist 15:56:11 female gender Hospital (finding) History of tobacco Current sm[facility] History SDOH [facility] Alcohol Std Drinks Medica l Center History SDOH [facility] Alcohol Binge Medical Jennifer ter History of Social 2023-01-03 2023-01-[address] function 00:00:00 00:00:00 Hospital Alcohol intake 2019-10-09 2019-10-09 Current non-drinker [facility] (finding) Tobacco Comment 2019-10-08 2019-10-08 quit [address] [facility] 00:[facility] Center History SDOH 2019-10-08 2019-10-[address] [facility] Alcohol Frequency 00:00:00 00:00:00 Medical Center Tobacco use and 2018-06-09 2018-06-09 Smokeless tobacco Me thodist exposure 00:00:00 00:00:00 non-user Hospital Alcohol Comment 2018-06-09 2018-06-09 Quit over a year Met [facility] 00:00:00 00:00:00 ago Hospital Cigarettes smoked 2018-06-02 2018-06-02 Univers ity of current (pack per 00:00:00 00:00:00 Gabriela daly) - Reported [facility] Cigarette 2018-06-02 2018-06-02 University of pack-years 00:00:00 00:00:00 [place] [facility] Sex Assigned At [address] [facility] 00[facility] Center Smoking Status Start Date Stop Date Source Ex-smoker 2018-06-09 00:00:00 2018-06-09 00:00:00 [facility] Medications Ordered Filled Start Stop Current Ordering Indication Dosage Frequency Signature Comments Components Source Medication Medication Date Date Medication? Clinician (SIG) Name Name hydrocortis 2021-09- No 10mg QD Take 1 Met [facility] one 10-13 tablet (10 st (CORTEF) 10 00:00: 05:59 mg total) Hospita MG tablet 00 :00 by mouth l daily for 30 days. hydrocortis 2021-09 No 10mg QD Take 1 Met [facility] one 10-13 tablet (10 st (CORTEF) 10 00:00: 05:59 mg total) Hospita MG tablet 00 :00 by mouth l daily for 30 days. hydrocortis 2021-09 No 10mg QD Take 1 Met [facility]odi one 10-13 tablet (10 st (CORTEF) 10 00:00: 05:59 mg total) Hospita MG tablet 00 :00 by mouth l daily for 30 days. hydrocortis 2021-09 No 10mg QD Take 1 Met [facility]odi one 10-13 tablet (10 st (CORTEF) 10 00:00: 00:00 mg total) Hospita MG tablet 00 :00 by mouth l daily for 30 days. hydrocortis 2021-09 No 10mg QD Take 1 Met [facility] one 10-13 tablet (10 st (CORTEF) 10 00:00: 00:00 mg total) Hospita MG tablet 00 :00 by mouth l daily for 30 days. hydrocortis 2021-09 No 10mg QD Take 1 Met [facility]odi one 10-13 tablet (10 st (CORTEF) 10 00:00: 00:00 mg total) Hospita MG tablet 00 :00 by mouth l daily for 30 days. levothyroxi 2021-09 Yes 50ug QD Take 50 Met hodi ne 2-[address] (SYNTHROID, 14:33: mouth Hospi ta LEVOTHROID) 06 every l 50 MCG morning. tablet traZODone 2021-09 Yes 50mg QD Take 50 mg Me thodi (DESYREL) 2-[address] 100 MG 14:33: nightly. Hospita tablet 06 l metoprolol 2021-09 Yes 50mg QD Take 50 mg M ethodi succinate 2-[address] XL 14:33: daily. Hospita (TOPROL-XL) 06 l 50 mg 24 hr tablet gabapentin 2021-09 Yes 400mg Q.5D Take 400 Me thodi (NEURONTIN) 2-[address] 800 mg 14:33: mouth 2 Hospita tablet 06 (two) l times a day. temazepam 2021-09 Yes 30mg QD Take 30 mg Me thodi (RESTORIL) 2-[address] 30 mg 14:33: nightly as Hospit a capsule 06 needed for l sleep. sertraline 2021-09 Yes 100mg QD Take 100 Me thodi (ZOLOFT) 2-[address] 100 MG 14:33: mouth Hospita tablet 06 nightly. l pantoprazol 2021-09 Yes 40mg QD Take 40 mg Methodi e 2-[address] (PROTONIX) 14:33: daily. Hospi ta 40 MG EC 06 l tablet albuterol 2021-09 Yes 2{puff} Inhale 2 M ethodi (PROAIR 2-[address] HFA) 90 14:33: Hospita mcg/actuati 06 l on inhaler potassium 2021-09 Yes 10meq Take 10 Meth sirena chloride 2-[address] (MICRO-K) 14:33: mouth. Hospit a 10 MEQ CR 06 l capsule multivitami 2021-09 Yes 1{tbl} QD Take 1 Me thodi n with 2-[address] minerals 14:33: mouth Hospita tablet 06 daily. l levothyroxi 2021-09 Yes 50ug QD Take 50 Met hodi ne 2-[address] (SYNTHROID, 14:33: mouth Hospi ta LEVOTHROID) 06 every l 50 MCG morning. tablet traZODone 2021-09 Yes 50mg QD Take 50 mg Me thodi (DESYREL) 2-[address] 100 MG 14:33: nightly. Hospita tablet 06 l metoprolol 2021-09 Yes 50mg QD Take 50 mg M ethodi succinate 2-[address] XL 14:33: daily. Hospita (TOPROL-XL) 06 l 50 mg 24 hr tablet gabapentin 2021-09 Yes 400mg Q.5D Take 400 Me thodi (NEURONTIN) 2-[address] 800 mg 14:33: mouth 2 Hospita tablet 06 (two) l times a day. temazepam 2021-09 Yes 30mg QD Take 30 mg Me thodi (RESTORIL) 2-[address] 30 mg 14:33: nightly as Hospit a capsule 06 needed for l sleep. sertraline 2021-09 Yes 100mg QD Take 100 Me thodi (ZOLOFT) 2-[address] 100 MG 14:33: mouth Hospita tablet 06 nightly. l pantoprazol 2021-09 Yes 40mg QD Take 40 mg Methodi e 2-[address] (PROTONIX) 14:33: daily. Hospi ta 40 MG EC 06 l tablet albuterol 2021-09 Yes 2{puff} Inhale 2 M ethodi (PROAIR 2-[address] HFA) 90 14:33: Hospita mcg/actuati 06 l on inhaler potassium 2021-09 Yes 10meq Take 10 Meth sirena chloride 2-[address] (MICRO-K) 14:33: mouth. Hospit a 10 MEQ CR 06 l capsule multivitami 2021-09 Yes 1{tbl} QD Take 1 Me thodi n with 2-[address] minerals 14:33: mouth Hospita tablet 06 daily. l potassium 2021-09 Yes 10meq Take 10 Meth sirena chloride 2-[address] (MICRO-K) 14:33: mouth. Hospit a 10 MEQ CR 06 l capsule multivitami 2021-09 Yes 1{tbl} QD Take 1 Me thodi n with 2-[address] minerals 14:33: mouth Hospita tablet 06 daily. l levothyroxi 2021-09 Yes 50ug QD Take 50 Met hodi ne 2-[address] (SYNTHROID, 14:33: mouth Hospi ta LEVOTHROID) 06 every l 50 MCG morning. tablet traZODone 2021-09 Yes 50mg QD Take 50 mg Me thodi (DESYREL) 2-[address] 100 MG 14:33: nightly. Hospita tablet 06 l metoprolol 2021-09 Yes 50mg QD Take 50 mg M ethodi succinate 2-[address] XL 14:33: daily. Hospita (TOPROL-XL) 06 l 50 mg 24 hr tablet gabapentin 2021-09 Yes 400mg Q.5D Take 400 Me thodi (NEURONTIN) 2-[address] 800 mg 14:33: mouth 2 Hospita tablet 06 (two) l times a day. temazepam 2021-09 Yes 30mg QD Take 30 mg Me thodi (RESTORIL) 2-[address] 30 mg 14:33: nightly as Hospit a capsule 06 needed for l sleep. sertraline 2021-09 Yes 100mg QD Take 100 Me thodi (ZOLOFT) 2-[address] 100 MG 14:33: mouth Hospita tablet 06 nightly. l pantoprazol 2021-09 Yes 40mg QD Take 40 mg Methodi e 2-[address] (PROTONIX) 14:33: daily. Hospi ta 40 MG EC 06 l tablet albuterol 2021-09 Yes 2{puff} Inhale 2 M ethodi (PROAIR 2-[address] HFA) 90 14:33: Hospita mcg/actuati 06 l on inhaler furosemide 2021-09 No 40mg Take 40 mg Methodi (LASIX) 20 10-[address] mg tablet 09:49: 00:00 Hospita 14 :00 l furosemide 2021-09 No 40mg Take 40 mg [facility] (LASIX) 20 10-[address] mg tablet 09:49: 00:00 Hospita 14 :00 l furosemide 2021-09 No 40mg Take 40 mg [facility] (LASIX) 20 10-[address] mg tablet 09:49: 00:00 Hospita 14 :00 l furosemide 2021-09 Yes 40mg Q24H Take 2 Metho di (LASIX) 20 2-[address] mg tablet 00:00: (40 mg Hospit a 00 total) by l mouth daily as needed (swelling) . furosemide 2021-09 Yes 40mg Q24H Take 2 Metho di (LASIX) 20 2-[address] mg tablet 00:00: (40 mg Hospit a 00 total) by l mouth daily as needed (swelling) . furosemide 2021-09 Yes 40mg Q24H Take 2 Metho di (LASIX) 20 2-[address] mg tablet 00:00: (40 mg Hospit a 00 total) by l mouth daily as needed (swelling) . atorvastati 2021-09 No 40mg QD Take 1 Met hodi n (LIPITOR) 2-07 -07 tablet (40 s t 40 mg 00:00: 05:59 mg total) Hospit a tablet 00 :00 by mouth l nightly for 30 days. hydrocortis 2021-09 No 5mg QD Take 1 Met hodi one 10-12 tablet (5 st (CORTEF) 5 00:00: 05:59 mg total) H ospita MG tablet 00 :00 by mouth l nightly for 30 days. atorvastati 2021-09 No 40mg QD Take 1 Met hodi n (LIPITOR) 10-12 tablet (40 s t 40 mg 00:00: 05:59 mg total) Hospit a tablet 00 :00 by mouth l nightly for 30 days. hydrocortis 2021-09 No 5mg QD Take 1 Met hodi one 10-12 tablet (5 st (CORTEF) 5 00:00: 05:59 mg total) H ospita MG tablet 00 :00 by mouth l nightly for 30 days. atorvastati 2021-09 No 40mg QD Take 1 Met hodi n (LIPITOR) 10-12 tablet (40 s t 40 mg 00:00: 05:59 mg total) Hospit a tablet 00 :00 by mouth l nightly for 30 days. hydrocortis 2021-09 No 5mg QD Take 1 Met hodi one 10-12 tablet (5 st (CORTEF) 5 00:00: 05:59 mg total) H ospita MG tablet 00 :00 by mouth l nightly for 30 days. hydrocortis 2021-09- No 5mg QD Take 1 Met hodi one 10-12 tablet (5 st (CORTEF) 5 00:00: 00:00 mg total) H ospita MG tablet 00 :00 by mouth l nightly for 30 days. hydrocortis 2021-09 No 5mg QD Take 1 Met hodi one 10-12 tablet (5 st (CORTEF) 5 00:00: 00:00 mg total) H ospita MG tablet 00 :00 by mouth l nightly for 30 days. hydrocortis 2021-09- No 5mg QD Take 1 Met hodi one 10-12 tablet (5 st (CORTEF) 5 00:00: 00:00 mg total) H ospita MG tablet 00 :00 by mouth l nightly for 30 days. GABAPENTIN 2-0 No 400 MG CAPS 9-13 00:00: 00 Dose 2022-0 No Unknown 7- 00:00: 00 Dose 2022-0 No Unknown 7- 00:00: 00 Dose 2022-0 No Unknown 7- 00:00: 00 Dose 2022-0 No Unknown 7- 00:00: 00 Dose 2022-0 No Unknown 7- 00:00: 00 Dose 2022-0 No Unknown 7- 00:00: 00 Eliquis 5 2-0 No 1mg mg tablet 6-16 00:00: 00 Eliquis 5 2022-0 No 1mg mg tablet 6-16 00:00: 00 prednisone 2022-0 No 2mg 20 mg 5-17 tablet 00:00: 00 levofloxaci 2022-0 No 1mg n 750 mg 5-17 tablet 00:00: 00 Bromfed DM 2022-0 No 10mg/5 2 mg-30 5-17 mL mg-10 mg/5 00:00: mL oral 00 syrup prednisone 2022-0 No 2mg 20 mg 5-17 tablet 00:00: 00 levofloxaci 2022-0 No 1mg n 750 mg 5-17 tablet 00:00: 00 Bromfed DM 2022-0 No 10mg/5 2 mg-30 5-17 mL mg-10 mg/5 00:00: mL oral 00 syrup atorvastati 2022-0 No 1mg n 40 mg 4-14 tablet 00:00: 00 Dose 2022-0 No Unknown 4-14 00:00: 00 atorvastati 2022-0 No 1mg n 40 mg 4-14 tablet 00:00: 00 Dose 2022-0 No Unknown 4-14 00:00: 00 metoprolol 2-0 No 2mg succinate 3-05 ER 100 mg 00:00: tablet,exte 00 nded release 24 hr Zoloft 100 2-0 No 15mg mg tablet 3-05 00:00: 00 Imitrex 100 2-0 No 1mg mg tablet 3-05 00:00: 00 ondansetron 2-0 No 1mg 4 mg 3-05 disintegrat 00:00: ing tablet 00 Dose 2-0 No Unknown 3-05 00:00: 00 Colestid 1 2-0 No 1gram gram tablet 3-05 00:00: 00 Dose 2022-0 No Unknown 3-05 00:00: 00 Dose 2022-0 No Unknown 3-05 00:00: 00 Dose 2022-0 No Unknown 3-05 00:00: 00 Dose 2022-0 No Unknown 3-05 00:00: 00 Dose 2022-0 No Unknown 3-05 00:00: 00 Dose 2022-0 No Unknown 3-05 00:00: 00 Dose 2022-0 No Unknown 3-05 00:00: 00 Dose 2022-0 No Unknown 3-05 00:00: 00 Dose 2022-0 No Unknown 3-05 00:00: 00 Dose 2022-0 No Unknown 3-05 00:00: 00 Dose 2022-0 No Unknown 3-05 00:00: 00 Dose 2022-0 No Unknown 3-05 00:00: 00 Dose 2022-0 No Unknown 3-05 00:00: 00 Dose 2022-0 No Unknown 3-05 00:00: 00 Dose 2022-0 No Unknown 3-05 00:00: 00 Dose 2022-0 No Unknown 3-05 00:00: 00 Dose 2022-0 No Unknown 3-05 00:00: 00 Dose 2022-0 No Unknown 3-05 00:00: 00 Dose 2022-0 No Unknown 3-05 00:00: 00 Dose 2022-0 No Unknown 3-05 00:00: 00 Dose 2022-0 No Unknown 3-05 00:00: 00 Dose 2022-0 No Unknown 3-05 00:00: 00 Dose 2022-0 No Unknown 3-05 00:00: 00 Dose 2022-0 No Unknown 3-05 00:00: 00 Dose 2022-0 No Unknown 3-05 00:00: 00 Dose 2022-0 No Unknown 3-05 00:00: 00 Dose 2022-0 No Unknown 3-05 00:00: 00 Dose 2022-0 No Unknown 3-05 00:00: 00 Dose 2022-0 No Unknown 3-05 00:00: 00 Dose 2022-0 No Unknown 3-05 00:00: 00 Dose 2022-0 No Unknown 3-05 00:00: 00 Dose 2022-0 No Unknown 3-05 00:00: 00 Dose 2022-0 No Unknown 3-05 00:00: 00 Dose 2022-0 No Unknown 3-05 00:00: 00 Dose 2022-0 No Unknown 3-05 00:00: 00 Dose 2022-0 No Unknown 3-05 00:00: 00 metoprolol 2-0 No 2mg succinate 3-05 ER 100 mg 00:00: tablet,exte 00 nded release 24 hr Zoloft 100 2-0 No 15mg mg tablet 3-05 00:00: 00 Imitrex 100 2-0 No 1mg mg tablet 3-05 00:00: 00 ondansetron 2-0 No 1mg 4 mg 3-05 disintegrat 00:00: ing tablet 00 Dose 2-0 No Unknown 3-05 00:00: 00 Colestid 1 2-0 No 1gram gram tablet 3-05 00:00: 00 Dose 2022-0 No Unknown 3-05 00:00: 00 Dose 2022-0 No Unknown 3-05 00:00: 00 Dose 2022-0 No Unknown 3-05 00:00: 00 Dose 2022-0 No Unknown 3-05 00:00: 00 Dose 2022-0 No Unknown 3-05 00:00: 00 Dose 2022-0 No Unknown 3-05 00:00: 00 Dose 2022-0 No Unknown 3-05 00:00: 00 Dose 2022-0 No Unknown 3-05 00:00: 00 Dose 2022-0 No Unknown 3-05 00:00: 00 Dose 2022-0 No Unknown 3-05 00:00: 00 Dose 2022-0 No Unknown 3-05 00:00: 00 Dose 2022-0 No Unknown 3-05 00:00: 00 Dose 2022-0 No Unknown 3-05 00:00: 00 Dose 2022-0 No Unknown 3-05 00:00: 00 Dose 2022-0 No Unknown 3-05 00:00: 00 Dose 2022-0 No Unknown 3-05 00:00: 00 Dose 2022-0 No Unknown 3-05 00:00: 00 Dose 2022-0 No Unknown 3-05 00:00: 00 Dose 2022-0 No Unknown 3-05 00:00: 00 Dose 2022-0 No Unknown 3-05 00:00: 00 Dose 2022-0 No Unknown 3-05 00:00: 00 Dose 2022-0 No Unknown 3-05 00:00: 00 Dose 2022-0 No Unknown 3-05 00:00: 00 Dose 2022-0 No Unknown 3-05 00:00: 00 Dose 2022-0 No Unknown 3-05 00:00: 00 Dose 2022-0 No Unknown 3-05 00:00: 00 Dose 2022-0 No Unknown 3-05 00:00: 00 Dose 2022-0 No Unknown 3-05 00:00: 00 Dose 2022-0 No Unknown 3-05 00:00: 00 Dose 2022-0 No Unknown 3-05 00:00: 00 Dose 2022-0 No Unknown 3-05 00:00: 00 Dose 2022-0 No Unknown 3-05 00:00: 00 Dose 2022-0 No Unknown 3-05 00:00: 00 Dose 2022-0 No Unknown 3-05 00:00: 00 Dose 2022-0 No Unknown 3-05 00:00: 00 Dose 2022-0 No Unknown 3-05 00:00: 00 Dose 2022-0 No Unknown 2-15 00:00: 00 Eliquis 5 2022-0 No 1mg mg tablet 2-15 00:00: 00 Eliquis 5 2022-0 No 1mg mg tablet 2-15 00:00: 00 ondansetron 2022-0 No 1mg 4 mg 2-15 disintegrat 00:00: ing tablet 00 Dose 2022-0 No Unknown 2-15 00:00: 00 Eliquis 5 2022-0 No 1mg mg tablet 2-15 00:00: 00 Eliquis 5 2022-0 No 1mg mg tablet 2-15 00:00: 00 ondansetron 2022-0 No 1mg 4 mg 2-15 disintegrat 00:00: ing tablet 00 metoprolol 1-1 No 2mg succinate 1-30 ER 100 mg 00:00: tablet,exte 00 nded release 24 hr metoprolol 1-1 No 2mg succinate 1-30 ER 100 mg 00:00: tablet,exte 00 nded release 24 hr metoprolol 1-0 No 2mg succinate 8-14 ER 100 mg 00:00: tablet,exte 00 nded release 24 hr metoprolol 1-0 No 2mg succinate 8-14 ER 100 mg 00:00: tablet,exte 00 nded release 24 hr Dulera 100 1-0 No 2mcg/ac mcg-5 5-25 tuation mcg/actuati 00:00: on HFA 00 aerosol inhaler ProAir HFA 2020-0 No 2mcg/ac 90 5-25 tuation mcg/actuati 00:00: on aerosol 00 inhaler amoxicillin 1-0 No 1mg 500 mg 5-25 tablet 00:00: 00 Dulera 100 1-0 No 2mcg/ac mcg-5 5-25 tuation mcg/actuati 00:00: on HFA 00 aerosol inhaler ProAir HFA 2020-0 No 2mcg/ac 90 5-25 tuation mcg/actuati 00:00: on aerosol 00 inhaler amoxicillin 1-0 No 1mg 500 mg 5-25 tablet 00:00: 00 Nyamyc 1-0 No 1unit/g 100,000 5-04 doris unit/gram 00:00: topical 00 powder prednisolon 1-0 No 1mg e 5 mg 5-04 tablet 00:00: 00 metoprolol 1-0 No 2mg succinate 5-04 ER 100 mg 00:00: tablet,exte 00 nded release 24 hr Dose 1-0 No Unknown 5-04 00:00: 00 Dose 1-0 No Unknown 5-04 00:00: 00 Zofran 4 mg 1-0 No 1mg tablet 5-04 00:00: 00 trazodone 2021-0 No 1mg 100 mg 5-04 tablet 00:00: 00 gabapentin 1-0 No 1mg 800 mg 5-04 tablet 00:00: 00 Lasix 20 mg 1-0 No 1mg tablet 5-04 00:00: 00 dicyclomine 2021-0 No 1mg 20 mg 5-04 tablet 00:00: 00 Lomotil 2.5 1-0 No 1mg mg-0.025 mg 5-04 tablet 00:00: 00 Dose 1-0 No Unknown 5-04 00:00: 00 Dose 1-0 No Unknown 5-04 00:00: 00 Zanaflex 4 1-0 No 1mg mg capsule 5-04 00:00: 00 Dose 2021-0 No Unknown 5-04 00:00: 00 Fioricet 50 2020-0 No 1mg mg-300 5-04 mg-40 mg 00:00: capsule 00 Nyamyc 1-0 No 1unit/g 100,000 5-04 doris unit/gram 00:00: topical 00 powder prednisolon 1-0 No 1mg e 5 mg 5-04 tablet 00:00: 00 metoprolol 1-0 No 2mg succinate 5-04 ER 100 mg 00:00: tablet,exte 00 nded release 24 hr Dose 1-0 No Unknown 5-04 00:00: 00 Dose 1-0 No Unknown 5-04 00:00: 00 Zofran 4 mg 2020-0 No 1mg tablet - 00:00: 00 trazodone 1-0 No 1mg 100 mg 5-04 tablet 00:00: 00 gabapentin 1-0 No 1mg 800 mg 5-04 tablet 00:00: 00 Lasix 20 mg 2020-0 No 1mg tablet 5-04 00:00: 00 dicyclomine 1-0 No 1mg 20 mg 5-04 tablet 00:00: 00 Lomotil 2.5 2020-0 No 1mg mg-0.025 mg 5-04 tablet 00:00: 00 Dose 1-0 No Unknown 5-04 00:00: 00 Dose 1-0 No Unknown 5-04 00:00: 00 Zanaflex 4 1-0 No 1mg mg capsule 5- 00:00: 00 temazepam 2021-0 No 1mg 30 mg 5-04 capsule 00:00: 00 Fioricet 50 1-0 No 1mg mg-300 5-04 mg-40 mg 00:00: capsule 00 metoprolol 1-0 No mg succinate 1-21 ER 100 mg 00:00: tablet,exte 00 nded release 24 hr metoprolol 1-0 No mg succinate 1-21 ER 100 mg 00:00: tablet,exte 00 nded release 24 hr metoprolol 1-0 No 1mg succinate 1-20 ER 50 mg 00:00: tablet,exte 00 nded release 24 hr metoprolol 1-0 No 1mg succinate 1-20 ER 50 mg 00:00: tablet,exte 00 nded release 24 hr metoprolol 2020-1 No 1mg succinate 1-10 ER 50 mg 00:00: tablet,exte 00 nded release 24 hr metoprolol 2020-1 No 1mg succinate 1-10 ER 50 mg 00:00: tablet,exte 00 nded release 24 hr metoprolol 2020-0 No 1mg succinate 8-06 ER 50 mg 00:00: tablet,exte 00 nded release 24 hr metoprolol 2020-0 No 1mg succinate 8-06 ER 50 mg 00:00: tablet,exte 00 nded release 24 hr Lomotil 2.5 2020-0 No 1mg mg-0.025 mg 6-17 tablet 00:00: 00 promethazin 2020-0 No 1mg e 25 mg 6-17 tablet 00:00: 00 Colestid 1 2020-0 No 1gram gram tablet 6-17 00:00: 00 Lomotil 2.5 2020-0 No 1mg mg-0.025 mg 6-17 tablet 00:00: 00 promethazin 2020-0 No 1mg e 25 mg 6-17 tablet 00:00: 00 Colestid 1 2020-0 No 1gram gram tablet 6-17 00:00: 00 Imitrex 100 2020-0 No 1mg mg tablet 3-30 00:00: 00 Zoloft 100 2020-0 No 15mg mg tablet 3-30 00:00: 00 Imitrex 100 2020-0 No 1mg mg tablet 3-30 00:00: 00 Zoloft 100 2020-0 No 15mg mg tablet 3-30 00:00: 00 Zoloft 100 2020-0 No 1mg mg tablet 2-18 00:00: 00 Colestid 1 2020-0 No 1gram gram tablet 2-18 00:00: 00 Zoloft 100 2020-0 No 1mg mg tablet 2-18 00:00: 00 Colestid 1 2020-0 No 1gram gram tablet 2-18 00:00: 00 Lomotil 2.5 2020-0 No 1mg mg-0.025 mg 2-05 tablet 00:00: 00 Lomotil 2.5 2020-0 No 1mg mg-0.025 mg 2-05 tablet 00:00: 00 Lomotil 2.5 2020-0 No 1mg mg-0.025 mg 2-05 tablet 00:00: 00 Lomotil 2.5 2020-0 No 1mg mg-0.025 mg 2-05 tablet 00:00: 00 TOBRAMYCIN 2020-0 Yes Apply to [facility] FUROSEMIDE 2020-0 Yes 50mg Q.5D Take [address] ORAL 2-04 by mouth 2 [facility]: (two[facility] 03 times Center daily. levothyroxi 2020-0 Yes 75ug Take [address] [facility] ne 2-04 mcg by [facility] (SYNTHROID, 12:24: mouth Medic al LEVOTHROID) 03 Every Center 75 [facility] morning on tablet an empty stomach. butalb/acet 2020-0 Yes Take by [facility] aminophen/c 2-04 mouth [facility] 12:24: needed. Medical (FIORICET 03 Center ORAL) temazepam 2020-0 Yes 30mg Take [address] (RESTORIL) 2-04 by mouth [facility] 30 [facility] 12:24: every [facility] capsule 03 night as Center needed for Sleep. sumatriptan 2020-0 Yes [facility] St succinate 2-04 mouth as [facility] (IMITREX 12:24: needed. Medica l ORAL) 03 Center gabapentin 2020-0 Yes 300mg Q.5D Take [address] (NEURONTIN) 2-04 mg by [facility] 300 MG 12:24: mouth 2 Medical capsule 03 (two) Center times daily. venlafaxine 2020-0 Yes 37.5mg QD Take 37.[address] [facility] (EFFEXOR-XR 2-04 mg by [facility] ) 37.5 MG 12:24: mouth Medical 24 hr 03 daily. Center capsule fentaNYL 2020-0 Yes 1{patch Place [address] [facility] (DURAGESIC) 2-04 } patch onto Maria kes 100 mcg/hr 12:24: the skin Med ical patch 03 every Center third day. predniSONE 2020-0 Yes 5mg QD Take [address] [facility] (DELTASONE) 2-04 by mouth Luke s 5 MG tablet 12:24: daily. Medi vaishnavi 03 Center pantoprazol 2020-0 Yes 30mg Take [address] e sodium 2-04 by mouth. [facility] (PROTONIX 12:24: Medical ORAL) 03 Center ofloxacin 2020-0 Yes 1[drp] Q.25D Place [address] [facility] (OCUFLOX) 2-04 drop into [facility] 0.3 % 12:24: the left Medical ophthalmic 03 eye 4 Center solution (four) times daily. brimonidine 2020-0 Yes 1[drp] Q.5D Place [address] -timolol 2-04 drop into [facility] (COMBIGAN) 12:24: the left Med ical 0.2-0.5 % 03 eye 2 Center ophthalmic (two) solution times daily. metoprolol 2020-0 Yes 50mg Q.5D Take [address] (LOPRESSOR) 2-04 by mouth 2 Maria kes 50 MG 12:24: (two) Medical tablet 03 times Center daily. colestipol 2020-0 Yes 5g Q.5D Take [address] [facility] (COLESTID) 2-04 by mouth 2 Javed es 5 gram 12:24: (two) Medical granules 03 times Center daily. lisinopril- 2020-0 Yes 1{tbl} QD Take [address] hydroCHLORO 2-04 tablet by Javed es thiazide 12:24: mouth Medical (PRINZIDE,Z 03 daily. Center ESTORETIC) 20-12.5 mg per tablet lisinopril- 2020-0 Yes 1{tbl} QD Take [address] hydroCHLORO 2-04 tablet by Javed es thiazide 12:24: mouth Medical (PRINZIDE,Z 03 daily. Center ESTORETIC) 20-12.5 mg per tablet TOBRAMYCIN 2020-0 Yes Apply to [facility] OPHT 2-04 eye(s). [facility] 12:24: Medical 03 Center FUROSEMIDE 2020-0 Yes 50mg Q.5D Take [address] ORAL 2-04 by mouth 2 [facility] 12:24: (two) Medical 03 times Center daily. levothyroxi 2020-0 Yes 75ug Take [address] [address] ne 2-04 mcg by [facility] (SYNTHROID, 12:24: mouth Medic al LEVOTHROID) 03 Every Center 75 MCG morning on tablet an empty stomach. butalb/acet 2020-0 Yes Take by [facility] aminophen/c 2-04 mouth as [facility] affeine 12:24: needed. Medical (FIORICET 03 Center ORAL) temazepam 2020-0 Yes 30mg Take [address] (RESTORIL) 2-04 by mouth [facility] 30 mg 12:24: every Medical capsule 03 night as Center needed for Sleep. sumatriptan 2020-0 Yes Take by [facility] succinate 2-04 mouth as [facility] (IMITREX 12:24: needed. Medica l ORAL) 03 Center gabapentin 2020-0 Yes 300mg Q.5D Take [address] (NEURONTIN) 2-04 mg by [facility] 300 MG 12:24: mouth 2 Medical capsule 03 (two) Center times daily. venlafaxine 2020-0 Yes 37.5mg QD Take 37.[address] (EFFEXOR-XR 2-04 mg by [facility] ) 37.5 MG 12:24: mouth Medical 24 hr 03 daily. Center capsule fentaNYL 2020-0 Yes 1{patch Place [address] [facility] (DURAGESIC) 2-04 } patch onto Maria kes 100 mcg/hr 12:24: the skin Med ical patch 03 every Center third day. predniSONE 2020-0 Yes 5mg QD Take [address] [facility] (DELTASONE) 2-04 by mouth Luke s 5 MG tablet 12:24: daily. Medi vaishnavi 03 Center pantoprazol 2020-0 Yes 30mg Take [address] [facility] e sodium 2-04 by mouth. [facility] (PROTONIX 12:24: Medical ORAL) 03 Center ofloxacin 2020-0 Yes 1[drp] Q.25D Place [address] (OCUFLOX) 2-04 drop into [facility] 0.3 % 12:24: the left Medical ophthalmic 03 eye 4 Center solution (four) times daily. brimonidine 2020-0 Yes 1[drp] Q.5D Place [address] -timolol 2-04 drop into [facility] (COMBIGAN) 12:24: the left Med ical 0.2-0.5 % 03 eye 2 Center ophthalmic (two) solution times daily. metoprolol 2020-0 Yes 50mg Q.5D Take [address] (LOPRESSOR) 2-04 by mouth 2 Maria kes 50 MG 12:24: (two) Medical tablet 03 times Center daily. colestipol 2020-0 Yes 5g Q.5D Take [address] [facility] (COLESTID) 2-04 by mouth 2 Javed es 5 gram 12:24: (two) Medical granules 03 times Center daily. colchicine 2018-09 Yes .3mg Take 0.3 Met h[facility] 0.6 mg 0-[address] tablet 00:00: mouth. Hospita 00 l colchicine 2018-09 Yes .3mg Take 0.3 Met hodi 0.6 mg 0-[address] tablet 00:00: mouth. Hospita 00 l colchicine 2018-09 Yes .3mg Take 0.3 Met hodi 0.6 mg 0-[address] tablet 00:00: mouth. Hospita 00 l predniSONE 2018-09- No DAILY Metho di (DELTASONE) 0-22 12- st 20 mg 00:00: 00:00 Hospita tablet 00 :00 l predniSONE 2018-09- No DAILY Metho di (DELTASONE) 0-22 12- st 20 mg 00:00: 00:00 Hospita tablet 00 :00 l predniSONE 2018-09- No DAILY Metho di (DELTASONE) 0-22 12- st 20 mg 00:00: 00:00 Hospita tablet 00 :00 l colestipoL Yes 1g Take 1 g Met hodi (COLESTID) 7-[address] 1 gram 00:00: Hospita tablet 00 l colestipoL Yes 1g Take 1 g Met hodi (COLESTID) 7-[address] 1 gram 00:00: Hospita tablet 00 l colestipoL Yes 1g Take 1 g Met hodi (COLESTID) 7-[address] 1 gram 00:00: Hospita tablet 00 l colestipol Yes 1g Take 1 g Uni vers (COLESTID) 9-28 by mouth ity o f 5 gram 10:13: daily. [place] granules [facility] Yes 40mg Take 40 mg Univers e 9-28 by mouth ity of (PROTONIX) 10:13: daily with [place] 40 mg EC 37 breakfast. [facility] poly[facility]en Yes constipatio 17g Take 17 g Univers e glycol 9-28 n by mouth ity of (MIRALAX) 10:13: daily. [place] 17 g packet 37 [facility] albuterol Yes bronchospas 2{puff} Inhale 2 Univers (VENTOLIN 9-28 m puffs by ity of HFA,PROAIR 10:13: prevention mouth [place] HFA) 90 37 every 6 MD mcg/puff (six) Anderso inhaler hours as n needed for Cancer wheezing Center or shortness of breath. potassium Yes hypokalemia 10meq Take 10 Univers chloride 9-28 prevention mEq by ity of (MICRO-K) 10:13: mouth [place] 10 mEq CR 37 needed for MD capsule hypokalemi Davion o a. [facility] colestipol Yes 1g Take 1 g Uni vers (COLESTID) 9-28 by mouth ity o f 5 gram 10:13: daily. [place] granules 37 [facility]op[facility]ol Yes 40mg Take 40 mg Univers e 9-28 by mouth ity of (PROTONIX) 10:13: daily with [place] 40 mg EC 37 breakfast. tablet [facility]en Yes constipatio 17g Take 17 g Univers e glycol 9-28 n by mouth ity of (MIRALAX) 10:13: daily. [place] 17 g packet 37 [facility] albuterol Yes bronchospas 2{puff} Inhale 2 Univers (VENTOLIN 9-28 m puffs by ity of HFA,PROAIR 10:13: prevention mouth [place] HFA) 90 37 every 6 MD mcg/puff (six) Anderso inhaler hours as n needed for Cancer wheezing Center or shortness of breath. potassium Yes hypokalemia 10meq Take 10 Univers chloride 9-28 prevention mEq by ity of (MICRO-K) 10:13: mouth [place] 10 mEq CR 37 needed for MD capsule hypokalemi Davion o a. [facility] colestipol Yes 1g Take 1 g Uni vers (COLESTID) 9-28 by mouth ity o f 5 gram 10:13: daily. [place] granules 37 [facility] pantoprazol Yes 40mg Take 40 mg Univers e 9-28 by mouth ity of (PROTONIX) 10:13: daily with [place] 40 mg EC 37 breakfast. tablet [facility]en Yes constipatio 17g Take 17 g Univers e glycol 9-28 n by mouth ity of (MIRALAX) 10:13: daily. [place] 17 g packet 37 MD Abdullahi n [facility] Center albuterol Yes bronchospas 2{puff} Inhale 2 Univers (VENTOLIN 9-28 m puffs by ity of HFA,PROAIR 10:13: prevention mouth [place] HFA) 90 37 every 6 MD mcg/puff (six) Anderso inhaler hours as n needed for Cancer wheezing Center or shortness of breath. potassium Yes hypokalemia 10meq Take 10 Univers chloride 9-28 prevention mEq by ity of (MICRO-K) 10:13: mouth [place] 10 mEq CR 37 needed for MD capsule hypokalemi Davion o a. n [facility] fentaNYL Yes Place 75 Unive rs (DURAGESIC) 9-28 mcg/hr ity of 100 mcg/hr 10:11: patch on Buddy as transdermal 33 the skin patch every 72 Anderso hours. n [facility] [place] furosemide Yes 40mg Take 40 mg U nivers (LASIX) 20 9-28 by mouth ity o f mg tablet 10:11: [place]. [place] 33 MD Abdullahi [facility] gabapentin Yes 800mg Take 800 Un johanna (NEURONTIN) 9-28 mg by ity of 800 mg 10:11: mouth [place] tablet 33 every 6 MD (six) Anderso hours. n [facility] levothyroxi Yes 50ug Take 50 Uni vers ne 9-28 mcg by ity of (SYNTHROID, 10:11: mouth [place] LEVOTHROID) 33 every MD 50 mcg morning. Anderso tablet n [facility] metoprolol Yes 50mg Take 50 mg U nivers tartrate 9-28 by mouth ity of (LOPRESSOR) 10:11: every [place] 50 mg 33 morning. MD tablet Andhyacinth n [facility] ondansetron Yes 4mg Take 4 mg U nivers (ZOFRAN) 4 9-28 by mouth ity o f mg tablet 10:11: every 8 [place] 33 (eight) MD hours as Anderso needed. n [facility] [place] OFLOXACIN Yes 1[drp] Administer Univers OPHTHALMIC 9-28 1 drop ity of 10:11: into the [place] 33 left eye MD every 6 Anderso (six) n hours. Cancer Center prednisoLON Yes 1[drp] Administer Univers E acetate 06-02 1 drop ity of (PRED 10:11: into the [place] FORTE) 1% 33 left eye MD ophthalmic every 6 Davion o suspension (six) n hours. Cancer Center sertraline Yes 50mg Take 50 mg U nivers (ZOLOFT) 50 - by mouth ity of mg tablet 10:11: every [place] 33 evening. MD Abdullahi n [facility] fentaNYL Yes Place 75 Unive rs (DURAGESIC) 9-28 mcg/hr ity of 100 mcg/hr 10:11: patch on Buddy as transdermal 33 the skin patch every 72 Anderso hours. n [facility] [place] furosemide Yes 40mg Take 40 mg U nivers (LASIX) 20 06-02 by mouth ity o f mg tablet 10:11: [place]. [place] 33 MD Abdullahi n [facility] gabapentin Yes 800mg Take 800 Un johanna (NEURONTIN) 9-28 mg by ity of 800 mg 10:11: mouth [place] tablet 33 every 6 MD (six) Anderso hours. n [facility] [place] levothyroxi Yes 50ug Take 50 Uni vers ne 9-28 mcg by ity of (SYNTHROID, 10:11: mouth [place] LEVOTHROID) 33 every MD 50 mcg morning. Anderso tablet n [facility] metoprolol Yes 50mg Take 50 mg U nivers tartrate - by mouth ity of (LOPRESSOR) 10:11: every [place] 50 mg 33 morning. tablet Andmaryo n [facility] ondansetron Yes 4mg Take 4 mg U nivers (ZOFRAN) 4 - by mouth ity o f mg tablet 10:11: every 8 [place] 33 (eight) MD hours as Anderso needed. n [facility] [place] OFLOXACIN Yes 1[drp] Administer Univers OPHTHALMIC 06-02 1 drop ity of 10:11: into the [place] 33 left eye MD every 6 Anderso (six) n hours. Cancer Center prednisoLON Yes 1[drp] Administer Univers E acetate 06-02 1 drop ity of (PRED 10:11: into the [place] FORTE) 1% 33 left eye MD ophthalmic every 6 Davion o suspension (six) n hours. Cancer Center sertraline Yes 50mg Take 50 mg U nivers (ZOLOFT) 50 - by mouth ity of mg tablet 10:11: every [place] 33 evening. MD Kaylen ward [facility] [place] fentaNYL Yes Place 75 Unive rs (DURAGESIC) 9-28 mcg/hr ity of 100 mcg/hr 10:11: patch on Buddy as transdermal 33 the skin patch every 72 Anderso hours. n [facility] [place] furosemide Yes 40mg Take 40 mg U nivers (LASIX) 20 - by mouth ity o f mg tablet 10:11: as needed. [place] 33 MD Abdullahi n [facility] gabapentin Yes 800mg Take 800 Un johanna (NEURONTIN) 9-28 mg by ity of 800 mg 10:11: mouth [place] tablet 33 every 6 MD (six) Anderso hours. n [facility] levothyroxi Yes 50ug Take 50 Uni vers ne 9-28 mcg by ity of (SYNTHROID, 10:11: mouth [place] LEVOTHROID) 33 every MD 50 mcg morning. Anderso tablet n [facility] metoprolol Yes 50mg Take 50 mg U nivers tartrate - by mouth ity of (LOPRESSOR) 10:11: every [place] 50 mg 33 morning. MD tablet Anderso n [facility] ondansetron Yes 4mg Take 4 mg U nivers (ZOFRAN) 4 06-02 by mouth ity o f mg tablet 10:11: every 8 [place] 33 (eight) MD hours as Anderso needed. n [facility] [place] OFLOXACIN Yes 1[drp] Administer Univers OPHTHALMIC 06-02 1 drop ity of 10:11: into the [place] 33 left eye MD every 6 Anderso (six) n hours. [facility] [place] prednisoLON 0 Yes 1[drp] Administer Univers E acetate 06-02 1 drop ity of (PRED 10:11: into the [place] FORTE) 1% 33 left eye ophthalmic every 6 Davion o suspension (six) n hours. Cancer Center sertraline 2018-0 Yes 50mg Take 50 mg U nivers (ZOLOFT) 50 9-28 by mouth ity of mg tablet 10:11: every [place] 33 evening. MD Kaylen ward [facility] oxyCODONE 2018-0 Yes 15mg Take 15 mg Un johanna (ROXICODONE 9- by mouth ity of ) 15 mg 00:00: every 8 [place] immediate 00 (eight) MD release hours as Anderso tablet needed. [facility] oxyCODONE 2018-0 Yes 15mg Take 15 mg Un johanna (ROXICODONE - by mouth ity of ) 15 mg 00:00: every 8 [place] immediate 00 (eight) MD release hours as Anderso tablet needed. [facility] oxyCODONE 2018-0 Yes 15mg Take 15 mg Un johanna (ROXICODONE - by mouth ity of ) 15 mg 00:00: every 8 [place] immediate 00 (eight) MD release hours as Anderso tablet needed. [facility] ipratropium 2018-0 Yes 3mL Q.25D Take 3 mL Methodi -albuterol 8-[address] (DUO-NEB) 00:00: nebulizati Ho spita 0.5-2.5 00 on 4 l mg/mL (four) nebulizer times a day. ipratropium 2018-0 Yes 3mL Q.25D Take 3 mL Methodi -albuterol 8-[address] (DUO-NEB) 00:00: nebulizati Ho spita 0.5-2.5 00 on 4 l mg/mL (four) nebulizer times a day. ipratropium 2018-0 Yes 3mL Q.25D Take 3 mL Methodi -albuterol 8-[address] ([employer]-NEB) 00:00: nebulizati Ho spita 0.5-2.5 00 on 4 l mg/mL (four) nebulizer times a day. tiZANidine 2015-0 Yes 4mg Take 4 mg Un johanna (ZANAFLEX) 5-20 by mouth ity o f 4 mg tablet 00:00: twice [place] 00 daily. MD Kaylen ward [facility] tiZANidine 2015-0 Yes 4mg Take 4 mg Un johanna (ZANAFLEX) 5-20 by mouth ity o f 4 mg tablet 00:00: twice [place] 00 daily. MD [facility] tiZANidine 2015-0 Yes 4mg Take 4 mg Un johanna (ZANAFLEX) 5-20 by mouth ity o f 4 mg tablet 00:00: twice daily. MD Kay[facility] Vital Signs Vital Name Observation Time Observation Value Comments Source Systolic blood 2022-08-11 17:40:28 125 mm[Hg] [facility] [place] [facility] pressure Diastolic blood 2022-08-11 17:40:28 60 mm[Hg] [facility] pressure Heart rate 2022-08-11 17:40:28 76 /min [facility] Body temperature 2022-08-11 17:40:28 36.56 [facility] Respiratory rate 2022-08-11 17:40:28 19 /min [facility] Oxygen saturation in 2022-08-11 17:40:28 98 /min [facility] Arterial blood by Pulse oximetry Body weight 2022-08-10 10:20:00 92.942 kg [facility] BMI 2022-08-10 10:20:00 37.48 kg/m2 [facility] Heart Rate 2021-01-06 15:23:00 Respiratory Rate 2021-01-06 15:23:00 BP Systolic 2021-01-06 15:23:00 125 mm[Hg] BP Diastolic 2021-01-06 15:23:00 71 mm[Hg] Weight Measured 2021-01-06 15:23:00 160.00 pounds Height Measured 2021-01-06 15:23:00 63.00 inches Body Temperature 2021-01-06 15:23:00 97.40 degrees BP Systolic 2020-02-20 10:25:00 109 mm[Hg] BP Diastolic 2020-02-20 10:25:00 71 mm[Hg] Weight Measured 2020-02-20 10:25:00 226.00 pounds Height Measured 2020-02-20 10:25:00 63.00 inches Body Temperature 2020-02-20 10:25:00 98.20 degrees Heart Rate 2020-02-20 10:25:00 68.00 /min Respiratory Rate 2020-02-20 10:25:00 BP Systolic 2019-12-03 09:14:00 128 mm[Hg] BP Diastolic 2019-12-03 09:14:00 86 mm[Hg] Weight Measured 2019-12-03 09:14:00 228.00 pounds Height Measured 2019-12-03 09:14:00 63.00 inches Body Temperature 2019-12-03 09:14:00 98.40 degrees Heart Rate 2019-12-03 09:14:00 62.00 /min Respiratory Rate 2019-12-03 09:14:00 BP Systolic 2019-09-26 11:37:00 170 mm[Hg] BP Diastolic 2019-09-26 11:37:00 106 mm[Hg] Weight Measured 2019-09-26 11:37:00 231.50 pounds Height Measured 2019-09-26 11:37:00 63.00 inches Body Temperature 2019-09-26 11:37:00 98.90 degrees Heart Rate 2019-09-26 11:37:00 97.00 /min Respiratory Rate 2019-09-26 11:37:00 Procedures Procedure Date / Time Performing Source Performed Clinician CT CHEST WO CONTRAST 2023-06-14 19:44:52 Osman Rick Met [facility] A. COMPREHENSIVE METABOLIC PANEL 2022-11-30 16:24:00 [facility] CBC WITH PLATELET AND 2022-11-30 16:24:00 [facility] DIFFERENTIAL THYROID STIMULATING HORMONE 2022-11-30 16:24:00 [facility] ESTIMATED GFR 2022-11-30 16:24:00 [facility] spital PET CT SKULL BASE TO MID 2022-11-30 16:16:58 [facility] THIGH POC GLUCOSE 2022-11-30 14:52:00 [facility] spital BASIC METABOLIC PANEL 2022-08-11 10:07:00 [facility] CBC WITH PLATELET AND 2022-08-11 10:07:00 [facility] DIFFERENTIAL PHOSPHORUS LEVEL 2022-08-11 10:07:00 [facility] MAGNESIUM LEVEL 2022-08-11 10:07:00 [facility] ospital ESTIMATED GFR 2022-08-11 10:07:00 [facility] ospital XR ABDOMEN 1 VW PORTABLE 2022-08-10 16:29:14 Dinni [facility] BASIC METABOLIC PANEL 2022-08-10 09:46:00 [facility] CBC WITH PLATELET AND 2022-08-10 09:46:00 [facility] DIFFERENTIAL PHOSPHORUS LEVEL 2022-08-10 09:46:00 [facility] MAGNESIUM LEVEL 2022-08-10 09:46:00 Posadas, [facility] ospital THYROID STIMULATING HORMONE 2022-08-10 09:46:00 Dinakar, [facility] ESTIMATED GFR 2022-08-10 09:46:00 Posadas, [facility] ospital CORTISOL LEVEL, RANDOM 2022-08-09 13:04:00 Dinakar, [facility] CORTISOL LEVEL, RANDOM 2022-08-09 12:30[facility] 2022-08-09 11:45:00 [facility] CBC WITH PLATELET AND 2022-08-09 11:45:00 [facility] DIFFERENTIAL PHOSPHORUS LEVEL 2022-08-09 11:45:00 [facility] MAGNESIUM LEVEL 2022-08-09 11:45:[address] [facility] [place] [place] [facility] ADRENOCORTICOTROPIC HORMONE 2022-08-09 11:45:00 Dinakar, [facility] CORTISOL LEVEL, RANDOM 2022-08-09 11:45:00 Dinakar, [facility] ESTIMATED GFR 2022-08-09 11:45:00 Posadas, [facility] ospital XR ABDOMEN 1 VW PORTABLE 2022-08-08 19:23:13 Dinkenyar, [facility] ADRENOCORTICOTROPIC HORMONE 2022-08-08 14:47:00 Dinakar, [facility] ADRENOCORTICOTROPIC HORMONE 2022-08-08 14:20:00 [facility]OL[facility] PANEL 2022-08-08 08:24:00 [facility] CBC WITH PLATELET AND 2022-08-08 08:24:00 [facility] DIFFERENTIAL PHOSPHORUS LEVEL 2022-08-08 08:24[facility] 2022-08-08 08:24:00 Posadas, [facility] ospital CORTISOL LEVEL, RANDOM 2022-08-08 08:24:00 Merary [facility] ESTIMATED GFR 2022-08-08 08:24:00 Posadas, [facility] BASIC METABOLIC PANEL 2022-08-07 10:20:00 [facility] CBC WITH PLATELET AND 2022-08-07 10:20:00 [facility] DIFFERENTIAL PHOSPHORUS LEVEL 2022-08-07 10:20:00 [facility] MAGNESIUM LEVEL 2022-08-07 10:20:00 Posadas, [facility] ospital LIPID PANEL 2022-08-07 10:20:00 Carmen Adam Ho spiglenn Tejal ESTIMATED GFR 2022-08-07 10:20:00 Posadas, [facility] EEG AWAKE/DROWSY LESS THAN 41 2022-08-06 22:48:51 [facility]K WO CONTRAST 2022-08-06 21:30:00 [facility] 2022-08-06 21:15:00 Kelsie Gomez [facility] MRI BRAIN WO CONTRAST 2022-08-06 21:00:00 Kelsie Gomez [facility] POC GLUCOSE 2022-08-06 11:59:00 Emy Enoch [facility] ospital CORTISOL LEVEL, AM 2022-08-06 09:46:00 [facility] 2022-08-06 09:46:00 Emy Aguada [facility] ospital THYROID STIMULATING HORMONE 2022-08-06 09:46:00 [facility] BASIC METABOLIC PANEL 2022-08-06 09:46:00 [facility] B NATRIURETIC PEPTIDE 2022-08-06 09:46:00 [facility] CBC WITH PLATELET AND 2022-08-06 09:46:00 [facility] DIFFERENTIAL PHOSPHORUS LEVEL 2022-08-06 09:46:00 [facility] MAGNESIUM LEVEL 2022-08-06 09:46:00 [facility] ospital C-REACTIVE PROTEIN 2022-08-06 09:46:00 [facility] ESTIMATED GFR 2022-08-06 09:46:00 [facility] ospital US CAROTID DUPLEX BILATERAL 2022-08-05 16:50:00 [facility] TTE COMPLETE, W CONTRAST, W 2022-08-05 16:05:00 [facility] DOPPLER ([id number]) THYROID STIMULATING HORMONE 2022-08-05 10:22:00 [facility] T4, FREE 2022-08-05 10:22:00 [facility]-19 QUALITATIVE RT-PCR 2022-08-05 02:46:00 [facility] TROPONIN T 2022-08-05 02:46:00 [facility] ospital CT HEAD WO CONTRAST 2022-08-05 02:12:07 [facility] URINE CULTURE 2022-08-05 00:16:00 [facility] TROPONIN T 2022-08-05 00:16:00 [facility] URINALYSIS SCREEN AND 2022-08-05 00:16:00 [facility] MICROSCOPY, WITH REFLEX TO CULTURE ECG ED PRELIMINARY 2022-08-04 23:36:[address] [facility] INTERPRETATION XR CHEST 1 VW PORTABLE 2022-08-04 23:34:58 [facility] CBC WITH PLATELET AND 2022-08-04 21:20:00 [facility] DIFFERENTIAL COMPREHENSIVE METABOLIC PANEL 2022-08-04 21:20:00 [facility] TROPONIN T 2022-08-04 21:20:00 Enoch Posadas [facility] ospital B NATRIURETIC PEPTIDE 2022-08-04 21:20:00 [facility] PARTIAL THROMBOPLASTIN TIME 2022-08-04 21:20:00 [facility] (PTT) PROTHROMBIN TIME WITH INR 2022-08-04 21:20:00 [facility] ESTIMATED GFR 2022-08-04 21:20:00 [facility] ECG 12-LEAD 2022-08-04 19:24:11 [facility] CBC WITH PLATELET AND 2022-07-19 19:17:00 [facility] DIFFERENTIAL COMPREHENSIVE METABOLIC PANEL 2022-07-19 19:17:00 [facility] THYROID STIMULATING HORMONE 2022-07-19 19:17:00 [facility] ESTIMATED GFR 2022-07-19 19:17:00 [facility] PET CT SKULL BASE TO MID 2022-07-19 18:35:00 [facility] THIGH POC GLUCOSE 2022-07-19 17:17:00 [facility] spital Plan of Care Planned Activity Planned Date Details Comments Source Future Scheduled 2023-06-19 Screening for [facility] Test 19:10:45 malignant neoplasm of colon (procedure) [code = 288739073] Future Scheduled 2023-06-19 Screening for [facility] Test 19:10:45 malignant neoplasm of colon (procedure) [code = 326330819] Future Scheduled 2023-06-19 Screening for [facility] Test 19:10:45 malignant neoplasm of colon (procedure) [code = [id number]] Future Scheduled 2023-06-19 Pneumococcal Vaccine: [facility] Test 19:10:45 Pediatrics (0 to 5 Years) and At-Risk Patients (6 to 64 Years) (1 - PCV) [code = Pneumococcal Vaccine: Pediatrics (0 to 5 Years) and At-Risk Patients (6 to 64 Years) (1 - PCV)] Future Scheduled 2023-06-19 Screening for [facility] Test 19:10:45 malignant neoplasm of cervix (procedure) [code = [id number]] Future Scheduled 2023-06-19 BREAST CANCER [facility] Test 19:10:45 SCREENING [code = BREAST CANCER SCREENING] Future Scheduled 2023-06-19 Screening for [facility] Test 19:10:45 malignant neoplasm of colon (procedure) [code = [id number]] Future Scheduled 2023-06-19 Screening for [facility] Test 19:10:45 malignant neoplasm of colon (procedure) [code = 850713146] Future Scheduled 2023-06-19 SHINGLES VACCINES (1 Met [facility] Test 19:10:45 of 2) [code = SHINGLES VACCINES (1 of 2)] Future Scheduled 2023-06-19 COVID-19 VACCINE (2 - [facility] Test 19:10:45 season) [code = COVID-19 VACCINE (2 - season)] Future Scheduled 2023-06-19 INFLUENZA VACCINE Method [facility] Test 19:10:45 (#1) [code = INFLUENZA VACCINE (#1)] Future Scheduled 2023-06-19 RSV VACCINES > 60 YR Met [facility] Test 19:10:45 (1 - 1-dose 60+ series) [code = RSV VACCINES > 60 YR (1 - 1-dose 60+ series)] Future Scheduled 2023-05-17 Screening for [facility] Test 11:11:36 malignant neoplasm of colon (procedure) [code = 825446772] Future Scheduled 2023-05-17 Screening for [facility] Test 11:11:36 malignant neoplasm of colon (procedure) [code = 305976211] Future Scheduled 2023-05-17 Screening for [facility] Test 11:11:36 malignant neoplasm of colon (procedure) [code = 254157511] Future Scheduled 2023-05-17 Pneumococcal Vaccine: [facility] Test 11:11:36 Pediatrics (0 to 5 Years) and At-Risk Patients (6 to 64 Years) (1 - PCV) [code = Pneumococcal Vaccine: Pediatrics (0 to 5 Years) and At-Risk Patients (6 to 64 Years) (1 - PCV)] Future Scheduled 2023-05-17 Screening for [facility] Test 11:11:36 malignant neoplasm of cervix (procedure) [code = 498993889] Future Scheduled 2023-05-17 BREAST CANCER [facility] Test 11:11:36 SCREENING [code = BREAST CANCER SCREENING] Future Scheduled 2023-05-17 Screening for [facility] Test 11:11:36 malignant neoplasm of colon (procedure) [code = 698705861] Future Scheduled 2023-05-17 Screening for [facility] Test 11:11:36 malignant neoplasm of colon (procedure) [code = 358512291] Future Scheduled 2023-05-17 SHINGLES VACCINES (1 Met [facility] Test 11:11:36 of 2) [code = SHINGLES VACCINES (1 of 2)] Future Scheduled 2023-05-17 COVID-19 VACCINE (2 - [facility] Test 11:11:36 Moderna series) [code = COVID-19 VACCINE (2 - Moderna series)] Future Scheduled 2023-05-17 INFLUENZA VACCINE Method [facility] Test 11:11:36 (#1) [code = INFLUENZA VACCINE (#1)] Future Scheduled 2023-05-17 Screening for [facility] Test 11:11:36 malignant neoplasm of colon (procedure) [code = 408366350] Future Scheduled 2023-05-17 Screening for [facility] Test 11:11:36 malignant neoplasm of colon (procedure) [code = 548438003] Future Scheduled 2023-05-17 Screening for [facility] Test 11:11:36 malignant neoplasm of colon (procedure) [code = 707778037] Future Scheduled 2023-05-17 Pneumococcal Vaccine: [facility] Test 11:11:36 Pediatrics (0 to 5 Years) and At-Risk Patients (6 to 64 Years) (1 - PCV) [code = Pneumococcal Vaccine: Pediatrics (0 to 5 Years) and At-Risk Patients (6 to 64 Years) (1 - PCV)] Future Scheduled 2023-05-17 Screening for [facility] Test 11:11:36 malignant neoplasm of cervix (procedure) [code = 133263095] Future Scheduled 2023-05-17 BREAST CANCER [facility] Test 11:11:36 SCREENING [code = BREAST CANCER SCREENING] Future Scheduled 2023-05-17 Screening for [facility] Test 11:11:36 malignant neoplasm of colon (procedure) [code = 180042012] Future Scheduled 2023-05-17 Screening for [facility] Test 11:11:36 malignant neoplasm of colon (procedure) [code = 019890853] Future Scheduled 2023-05-17 SHINGLES VACCINES (1 Met [facility] Test 11:11:36 of 2) [code = SHINGLES VACCINES (1 of 2)] Future Scheduled 2023-05-17 COVID-19 VACCINE (2 - [facility] Test 11:11:36 Moderna series) [code = COVID-19 VACCINE (2 - Moderna series)] Future Scheduled 2023-05-17 INFLUENZA VACCINE Method [facility] Test 11:11:36 (#1) [code = INFLUENZA VACCINE (#1)] Future Scheduled 2022-11-04 COVID-19 Vaccination [facility] Test 12:55:55 (#1) [code = COVID-19 [facility] (#1)] Center Future Scheduled 2022-11-04 COVID-19 Vaccination [facility] Test 12:55:55 (#1) [code = COVID-19 [facility] Vaccination (#1)] Center Future Scheduled 2022-11-04 COVID-19 Vaccination [facility] Test 12:55:55 (#1) [code = COVID-19 [facility] Vaccination (#1)] Center Goal Plan of Care Note [code = 08948-9] Goal Plan of Care Note [code = 55626-4] Goal Plan of Care Note [code = 65303-6] Goal Plan of Care Note [code = 43341-9] Goal Plan of Care Note [code = 58949-3] Goal Plan of Care Note [code = 49122-0] Goal Plan of Care Note [code = 31584-8] Goal Plan of Care Note [code = 02421-4] Goal Plan of Care Note [code = 45085-1] Goal Plan of Care Note [code = 98613-4] Goal Plan of Care Note [code = 30933-0] Goal Plan of Care Note [code = 06970-5] Goal Plan of Care Note [code = 25053-5] Goal Plan of Care Note [code = 78291-9] Goal Plan of Care Note [code = 76361-5] Goal Plan of Care Note [code = 74082-7] Goal Plan of Care Note [code = 58903-1] Goal Plan of Care Note [code = 05322-0] Goal Plan of Care Note [code = 37658-6] Goal Plan of Care Note [code = 58246-7] Goal Plan of Care Note [code = 80592-3] Goal Plan of Care Note [code = 21502-9] Goal Plan of Care Note [code = 48238-8] Goal Plan of Care Note [code = 96617-1] Goal Plan of Care Note [code = 49581-7] Goal Plan of Care Note [code = 48943-3] Goal Plan of Care Note [code = 31086-6] Goal Plan of Care Note [code = 18749-8] Goal Plan of Care Note [code = 85761-1] Goal Plan of Care Note [code = 10620-3] Goal Plan of Care Note [code = 79513-9] Encounters Start End Encounter Admission Attending Care Care Encounter Source Date/Time Date/Time Type Type Clinicians Facility Department ID 2022-08-04 Emergency HFD HFD [id number] CROW - 13:40:24 [place] [facility] 2023-06-14 2023-06-14 Outpatient [facility] [id number] [facility] [place] 00:00:00 00:00:00 OSMAN [address] 2023-05-17 2023-05-17 Outpatient [facility] CLINT 94835-4 023 Yosef 13:40:08 13:40:08 0912 F Yariel 2023-02-11 2023-02-11 Travel 1.2.840.1 1.2.101.289 6443 133006 [facility]i 00:00:00 00:00:[address] 3.430.2.7 0.2.7.3.698 Ho spita .3.164902 084.8 l .8 2023-02-11 2023-02-11 Travel 1.2.840.1 1.2.535.665 0488 108463 Methodi 00:00:00 00:00:[address] 3.430.2.7 0.2.7.3.698 Ho spita .3.913826 084.8 l .8 2023-02-10 2023-02-10 Dash Raymundo, 1.2.840.1 [id number] 068 [id number] Methodi 00:00:00 00:00:00 [address] Yessi [address]19.1.[address] 3.430.2.7 Hospit a .3.732507 l .8 2023-02-10 2023-02-10 Dash Raymundo, 1.2.840.1 [id number] 617 [id number] Methodi 00:00:00 00:00:00 [address] Yessi [address]94.1.[address] 3.430.2.7 Hospit a .3.175534 l .8 2023-01-07 2023-01-07 Moise Kat 1.2.840.1 [id number] 2 [id number] Methodi 00:00:00 00:00:[address] 3.430.2.7 Hospit a .3.115660 l .8 2023-01-07 2023-01-07 Moise Kat 1.2.840.1 [id number] 2 [id number] Methodi 00:00:00 00:00:[address] 3.430.2.7 Hospit a .3.919874 l .8 2023-01-04 2023-01-04 Moise Kat 1.2.840.1 [id number] 2 [id number] Methodi 00:00:00 00:00:[address] 3.430.2.7 Hospit a .3.595568 l .8 2023-01-04 2023-01-04 Travel 1.2.840.1 1.2.560.966 1585 229224 Methodi 00:00:00 00:00:[address] 3.430.2.7 0.2.7.3.698 Ho spita .3.038943 084.8 l .8 2023-01-04 2023-01-04 Telephone [place], 1.2.840.1 [id number] 2 [id number] Methodi 00:00:00 00:00:[address] 3.430.2.7 Hospit a .3.100458 l .8 2023-01-04 2023-01-04 Travel 1.2.840.1 1.2.806.153 0306 953560 Methodi 00:00:00 00:00:[address] 3.430.2.7 0.2.7.3.698 Ho spita .3.607398 084.8 l .8 2022-12-20 2022-12-20 Outpatient [facility] PRIV PRIV 140 01348-2 [facility] 00:00:00 00:00:00 n_J [id number] Medica l 2022-12-09 2022-12-09 [facility].[facility].840.[facility] [id number] 2100 [id number] Methodi 00:00:00 00:00:[address] 3.430.2.7 Hospit a .3.480462 l .8 2022-12-09 2022-12-09 Telephone Vingco, 1.2.840.1 [id number] 2099 [id number] Methodi 00:00:00 00:00:[address] 3.430.2.7 Hospit a .3.983813 l .8 2022-12-03 2022-12-03 Telephone Vingco, 1.2.840.1 [id number] 2099378 Methodi 00:00:00 00:00:[address] 3.430.2.7 Hospit a .3.046850 l .8 2022-12-03 2022-12-03 Dash Raymundo, 1.2.840.1 [id number] 942 [id number] Methodi 00:00:00 00:00:00 Only Yessi 83666.1.[address] 3.430.2.7 Hospit a .3.193326 l .8 2022-12-03 2022-12-03 Telephone Tayler, 1.2.840.1 [id number] 2100 843458 Methodi 00:00:00 00:00:[address] 3.430.2.7 Hospit a .3.625202 l .8 2022-12-03 2022-12-03 Orders Zackary, 1.2.840.1 [id number] 878 [id number] Methodi 00:00:00 00:00:00 Only Yessi 05364.1.[address] 3.430.2.7 Hospit a .3.832714 l .8 2022-11-30 2022-11-30 Hospital Michelle Carrera 1.2.840.1 [id number] 21 [id number] Methodi 09:20:00 23:59:[address] 3.430.2.7 Hospit a .3.890903 l .8 2022-11-30 2022-11-30 Hospital Michelle Carrera 1.2.840.1 [id number] Methodi 09:20:00 23:59:[address] 3.430.2.7 Hospit a .3.704024 l .8 2022-11-30 2022-11-30 Office Michelle Carrera 1.2.840.1 [id number] 471 [id number] Methodi 13:20:00 13:40:[address] 3.430.2.7 Hospit a .3.725178 l .8 2022-11-30 2022-11-30 Office Michelle Carrera 1.2.840.1 [id number] 582 [id number] Methodi 13:20:00 13:40:[address] 3.430.2.7 Hospit a .3.531945 l .8 2022-11-30 2022-11-30 Lab Michelle Carrera 1.2.840.1 [id number] 014 [id number] Methodi 10:30:00 10:35:[address] 3.430.2.7 Hospit a .3.529713 l .8 2022-11-30 2022-11-30 Lab Michelle Carrera 1.2.840.1 [id number] 728 7539249 Methodi 10:30:00 10:35:[address] 3.430.2.7 Hospit a .3.262476 l .8 2022-11-30 2022-11-30 Dash Raymundo, 1.2.840.1 [id number] 913 [id number] Methodi 00:00:00 00:00:00 Only Yessi 65823.1.[address] 3.430.2.7 Hospit a .3.771117 l .8 2022-11-30 2022-11-30 Travel 1.2.840.1 1.2.377.574 8270 136195 Methodi 00:00:00 00:00:[address] 3.430.2.7 0.2.7.3.698 Ho spita .3.218621 084.8 l .8 2022-11-30 2022-11-30 Dash Raymundo, 1.2.840.1 [id number] 408 [id number] Methodi 00:00:00 00:00:00 Only Yessi 44247.1.[address] 3.430.2.7 Hospit a .3.193628 l .8 2022-11-30 2022-11-30 Travel 1.2.840.1 1.2.466.721 6825 976257 Methodi 00:00:00 00:00:[address] 3.430.2.7 0.2.7.3.698 Ho spita .3.593552 084.8 l .8 2022-11-29 2022-11-29 Michelle [place] 1.2.840.1 [id number] 2 [id number] Methodi 00:00:00 00:00:[address] 3.430.2.7 Hospit a .3.561907 l .8 2022-11-29 2022-11-29 Telephone Michelle Carrera 1.2.840.1 [id number] 2 [id number] Methodi 00:00:00 00:00:[address] 3.430.2.7 Hospit a .3.307120 l .8 2022-11-29 2022-11-29 Telephone Michelle Carrera 1.2.840.1 [id number] 2 [id number] Methodi 00:00:00 00:00:[address] 3.430.2.7 Hospit a .3.187485 l .8 2022-11-29 2022-11-29 Telephone Michelle Carrera 1.2.840.1 [id number] 2 [id number] Methodi 00:00:00 00:00:[address] 3.430.2.7 Hospit a .3.257086 l .8 2022-09-08 2022-09-08 Orders Zackary, 1.2.840.1 [id number] 074 [id number] Methodi 00:00:00 00:00:00 Only Yessi 23823.1.[address] 3.430.2.7 Hospit a .3.834478 l .8 2022-09-08 2022-09-08 Orders Zackary, 1.2.840.1 [id number] 373 [id number] Methodi 00:00:00 00:00:00 Only Yessi 08804.1.[address] 3.430.2.7 Hospit a .3.462042 l .8 2022-08-04 2022-08-11 [facility] Elmer Harp 1.2.840.1 13738 1207 [id number] Methodi 13:10:00 14:33:00 Enoch Wilder 00490.1.[address] Peña Reaganra 3.430.2.7 Hospita .3.529276 l .8 2022-08-04 2022-08-11 Hospital Elmer Harp 1.2.840.1 93441 1207 [id number] Methodi 13:10:00 14:33:00 Encounter Enoch Posadas 58966.1.[address] Peña Reagan 3.430.2.7 Hospita .3.578254 l .8 2022-08-04 2022-08-04 Travel 1.2.840.1 1.2.594.703 9557 071683 Methodi 00:00:00 00:00:[address] 3.430.2.7 0.2.7.3.698 Ho spita .3.851101 084.8 l .8 2022-08-04 2022-08-04 Travel 1.2.840.1 1.2.756.900 5890 234761 Methodi 00:00:00 00:00:[address] 3.430.2.7 0.2.7.3.698 Ho spita .3.734309 084.8 l .8 2022-07-19 2022-07-19 Hospital Michelle Carrera 1.2.840.1 [id number] 21 [id number] Methodi 10:40:00 23:59:[address] 3.430.2.7 Hospit a .3.583583 l .8 2022-07-19 2022-07-19 Hospital Michelle Carrera 1.2.840.1 [id number] 21 [id number] Methodi 10:40:00 23:59:[address] 3.430.2.7 Hospit a .3.922326 l .8 2022-07-19 2022-07-19 Office Michelle Carrera 1.2.840.1 [id number] 231 [id number] Methodi 13:00:00 13:20:[address] 3.430.2.7 Hospit a .3.732439 l .8 2022-07-19 2022-07-19 Office Michelle Carrera 1.2.840.1 [id number] 909 [id number] Methodi 13:00:00 13:20:[address] 3.430.2.7 Hospit a .3.307343 l .8 2022-07-19 2022-07-19 Lab Deandre Michelle 1.2.840.1 [id number] 945 [id number] Methodi 11:30:00 11:35:[address] 3.430.2.7 Hospit a .3.177183 l .8 2022-07-19 2022-07-19 Lab Deandre Michelle 1.2.840.1 [id number] 794 [id number] Methodi 11:30:00 11:35:[address] 3.430.2.7 Hospit a .3.657043 l .8 2022-07-19 2022-07-19 Travel 1.2.840.1 1.2.766.952 3925 216019 [facility]i 00:00:00 00:00:[address] 3.430.2.7 0.2.7.3.698 Ho spita .3.947633 084.8 l .8 2022-07-19 2022-07-19 Travel 1.2.840.1 1.2.904.267 3868 023781 Methodi 00:00:00 00:00:[address] 3.430.2.7 0.2.7.3.698 Ho spita .3.092638 084.8 l .8 2022-07-09 2022-07-09 Orders Nate, 1.2.840.1 54 Methodi 00:00:00 00:00:00 Only Chanda Abbott 10176.1.[address] 3.430.2.7 Hospit a .3.513453 l .8 2022-07-09 2022-07-09 Dash Sullivan, 1.2.840.1 Methodi 00:00:00 00:00:00 Only Chanda Abbott 20299.1.[address] 3.430.2.7 Hospit a .3.693761 l .8 2022-07-08 2022-07-08 Telephone Michelel Carrera 1.2.840.1 [id number] 2 [id number] Methodi 00:00:00 00:00:[address] 3.430.2.7 Hospit a .3.627302 l .8 2022-07-08 2022-07-08 Travel 1.2.840.1 1.2.168.789 4570 063442 Methodi 00:00:00 00:00:[address] 3.430.2.7 0.2.7.3.698 Ho spita .3.758278 084.8 l .8 2022-07-08 2022-07-08 Telephone Michelle Carrera 1.2.840.1 [id number] 2 [id number] Methodi 00:00:00 00:00:[address] 3.430.2.7 Hospit a .3.829001 l .8 2022-07-08 2022-07-08 Travel 1.2.840.1 1.2.012.318 0930 459461 [facility]i 00:00:00 00:00:[address] 3.430.2.7 0.2.7.3.698 Ho spita .3.321794 084.8 l .8 2022-05-19 2022-05-19 Outpatient [id number]- [id number] e8 83rs26-a 00:00:00 00:00:00 Visit t4b7-64n8 2o8-30q4-0 -8697-14f 697-14f6c1 3w473s896 63l196 2022-03-05 2022-03-05 Outpatient [id number]- [id number] b1 4098de-1 00:00:00 00:00:00 Visit 11ca-4300 1ca-4300-8 -8765-7d9 765-7d9eef jwrn5564x a0820b 2022-01-05 2022-01-05 Outpatient MICHELLE CARRERA [facility] 2100 [id number] [facility] [place] 00:00:00 00:00:[address] 2022-01-05 2022-01-05 Outpatient MICHELLE CARRERA [facility] 2100 [id number] [facility] 00:00:00 00:00:[address] 2022-01-05 2022-01-05 Outpatient MICHELLE CARRERA [facility] 2100 [id number] [facility] 00:00:00 00:00:[address] 2022-01-05 2022-01-05 Outpatient MICHELLE CARRERA [facility] 2100 [id number] [facility] [place] 00:00:00 00:00:[address] 2021-06-01 2021-06-01 Outpatient [facility] PRIV PRIV 140 28675-6 [facility] 00:00:00 00:00:00 n_J [id number] Medica l 2021-04-07 2021-04-07 Outpatient MICHELLE CARRERA [facility] 2100 [id number] [facility] [place] 00:00:00 00:00:[address] 2021-04-07 2021-04-07 Outpatient IMCHELLE CARRERA [facility] 2100 [id number] [facility] 00:00:00 00:00:[address] 2021-04-07 2021-04-07 Outpatient MICHELLE CARRERA [facility] 2100 [id number] [facility] 00:00:00 00:00:[address] 2020-10-07 2020-10-07 Outpatient MICHELLE CARRERA [facility] 2100 [id number] [facility] [place] 00:00:00 00:00:[address] 2020-10-07 2020-10-07 Outpatient MICHELLE CARRERA [facility] 2100 [id number] [facility] 00:00:00 00:00:[address] 2020-10-07 2020-10-07 Outpatient MICHELLE CARRERA [facility] 2100 [id number] [facility] 00:00:00 00:00:[address] 2020-07-07 2020-07-07 Outpatient MICHELLE CARRERA [facility] 2100 [id number] [facility] 00:00:00 00:00:[address] 2020-07-07 2020-07-07 Outpatient MICHELLE CARRERA [facility] 2100 [id number] [facility] 00:00:00 00:00:[address] 2020-05-07 2020-05-07 Outpatient MICHELLE CARRERA [facility] 2100 [id number] [facility] 00:00:00 00:00:[address] 2020-05-07 2020-05-07 Outpatient MICHELLE CARRERA [facility] 2100 [id number] [facility] [place] 00:00:00 00:00:[address] 2020-05-07 2020-05-07 Outpatient MICHELLE CARRERA [facility] 2100 [id number] [facility] [place] 00:00:00 00:00:[address] 2020-05-07 2020-05-07 Outpatient MICHELLE CARRERA [facility] 2100 [id number] [facility] [place] 00:00:00 00:00:[address] 2020-03-14 2020-03-14 Outpatient [facility] [id number] 169 [facility] [place] 00:00:00 00:00:[address] 2020-03-14 2020-03-14 Outpatient [facility] [id number] 455 [facility] [place] 00:00:00 00:00:[address] 2020-02-05 2020-02-05 Outpatient MICHELLE CARRERA [facility] 2100 [id number] [facility] [place] 00:00:00 00:00:[address] 2020-02-05 2020-02-05 Outpatient MICHELLE CARRERA [facility] 2100 [id number] [facility] [place] 00:00:00 00:00:[address] 2020-01-25 2020-01-25 Outpatient LINDA, [facility] [id number] 792 [facility] [place] 00:00:00 00:00:00 JONE [address] 2020-01-25 2020-01-25 Outpatient LINDA, [facility] [id number] 792 [facility] [place] 00:00:00 00:00:[address] JONE [address] 2020-01-25 2020-01-25 Outpatient LINDA, [facility] [id number] 792 [facility] [place] 00:00:00 00:00:00 JONE [address] 2020-01-08 2020-01-08 Outpatient COURTNEY SIDHU [facility] [id number] 8404 [facility] [place] 00:00:00 00:00:[address] 2020-01-03 2020-01-03 Outpatient THEA, MIN [facility] [id number] 6015 [facility] [place] 00:00:00 00:00:[address] 2020-01-03 2020-01-03 Outpatient COURTNEY SIDHU [facility] [id number] 7185 [facility] [place] 00:00:00 00:00:[address] 2020-01-03 2020-01-03 Outpatient COURTNEY SIDHU [facility] [id number] 3681 [facility] [place] 00:00:00 00:00:[address] 2020-01-03 2020-01-03 Outpatient THEA, MIN [facility] [id number] 0298 [facility] [place] 00:00:00 00:00:[address] 2020-01-03 2020-01-03 Outpatient THEA, COURTNEY [facility] [id number] 2183 [facility] [place] 00:00:00 00:00:[address] 2019-10-30 2019-10-30 Outpatient COURTNEY SIDHU [facility] [id number] 2816 [facility] [place] 00:00:00 00:00:[address] 2019-10-30 2019-10-30 Outpatient COURTNEY SIDHU [facility] [id number] 7674 [facility] [place] 00:00:00 00:00:[address] 2019-10-04 2019-10-04 Outpatient COURTNEY SIDHU [facility] [id number] 6426 [facility] [place] 00:00:00 00:00:[address] 2019-10-04 2019-10-04 Outpatient COURTNEY SIDHU [facility] 021 [id number] 6438 [place] 00:00:00 00:00:[address] 2019-09-20 2019-09-20 Outpatient PRABHJOT, [facility] 537 [id number] [place] 00:00:00 00:00:00 OSMAN [address] 2019-07-16 2019-07-16 Outpatient MICHELLE CARRERA [facility] 2100 [id number] [facility] [place] 00:00:00 00:00:[address] 2019-06-29 2019-06-29 Outpatient LINDA, [facility] [id number] 696 [facility] [place] 00:00:00 00:00:00 JONE [address] 2019-05-29 2019-05-31 Inpatient NEASON, [facility] 060 [id number] 38 [facility] [place] 00:00:00 00:00:00 JERAMIE [address] Results Test Description Test Time Test Comments Results Result Comments Source POC glucose 2022-11-30 15:03:00 Test Item Value Reference Range Interpretation Comme nts POC glucose (test code = 69282-4) 119 mg/dL 65-99 H Mangle Feeder Name: Rafiq Pereze ID: [id number] Lab Interpretation (test code = Abnormal 60421-6) [facility] [id number] 15:03:00 Test Item Value Reference Range Interpretation Comments POC glucose (test code = 119 mg/dL 65-99 H Ope rator Name: [id number]) Rafiq PatriciaynDev ice ID: [id number] Lab Interpretation (test Abnormal code = 06602-5) [facility] [id number] 15:03:00 Test Item Value Reference Range Interpretation Comments POC glucose (test code = 119 mg/dL 65-99 H Ope rator Name: [id number]) Rafiq RobynDev ice ID: [id number] Lab Interpretation (test Abnormal code = 87501-7) [facility] [id number] 01:24:00 Test Item Value Reference Range Interpretation Comments Urine culture (test SEE COMMENT Bacteriu ezequiel screen code = 5130983) negative. [facility] [id number] 01:24:00 Test Item Value Reference Range Interpretation Comments Urine culture (test SEE COMMENT Bacteriu ezequiel screen code = 9437165) negative. [facility]2022-12-01 01:24:00 Test Item Value Reference Range Interpretation Comments Urine culture (test SEE COMMENT Bacteriu ezequiel screen code = 0183087) [facility]Presence] in Respiratory specimen by EMILY with probe [id number] 00:27:22 Test Item Value Reference Range Interpretation Comments SARS-CoV-2 (COVID-19) RNA Not detected [Presence] in Respiratory specimen by EMILY with probe detection (test code = 21440-1) Whether patient is employed in a Unknown healthcare setting (test code = 44562-1) Whether the patient has symptoms Unknown related to condition of interest (test code = 32043-3) Whether the patient was Unknown hospitalized for condition of interest (test code = 45006-6) Whether the patient was admitted Unknown to intensive care unit (ICU) for condition of interest (test code = 83299-6) Whether patient resides in a Unknown congregate care setting (test code = 14285-9) status (test code = Unknown 52254-4) Date and time of symptom onset Unknown (test code = 46851-7) [facility] Preliminary Interpretation - Not an [id number] 23:36:52 Test Item Value Reference Range Interpretation Comments YUE (test code = YUE) Elmer Harp MD 08/08/2022 2:34 [facility] ED Preliminary Interpretation - Not an OrderPerformed by: Elmer Harp MDAuthorized by: Elmer Harp MD ECG reviewed by ED Physician in the absence of a manager mba: yes Interpretation: Interpretation: abnormal Rate: ECG rate: 75 ECG rate assessment: normal Rhythm: Rhythm: sinus rhythm QRS: QRS axis: Normal QRS intervals: NormalST segments: ST segments: NormalT waves: T waves: inverted Lab Interpretation Abnormal (test code = 75442-0) [facility] Preliminary Interpretation - Not an [id number] 23:36:52 Test Item Value Reference Range Interpretation Comments YUE (test code = YUE) Elmer Harp MD 08/08/2022 2:34 [facility] ED Preliminary Interpretation - Not an OrderPerformed by: Elmer Harp MDAuthorized by: Elmer Harp MD ECG reviewed by ED Physician in the absence of a manager mba: yes Interpretation: Interpretation: abnormal Rate: ECG rate: 75 ECG rate assessment: normal Rhythm: Rhythm: sinus rhythm QRS: QRS axis: Normal QRS intervals: NormalST segments: ST segments: NormalT waves: T waves: inverted Lab Interpretation Abnormal (test code = 22506-8) [facility] Preliminary Interpretation - Not an [id number] 23:36:52 Test Item Value Reference Range Interpretation Comments YUE (test code = YUE) Elmer Harp MD 08/08/2022 2:34 [facility] ED Preliminary Interpretation - Not an OrderPerformed by: Elmer Harp MDAuthorized by: Elmer Harp MD ECG reviewed by ED Physician in the absence of a manager mba: yes Interpretation: Interpretation: abnormal Rate: ECG rate: 75 ECG rate assessment: normal Rhythm: Rhythm: sinus rhythm QRS: QRS axis: Normal QRS intervals: NormalST segments: ST segments: NormalT waves: T waves: inverted Lab Interpretation Abnormal (test code = 27847-8) [address]2022-11-30 22:13:25 Test Item Value Reference Range Interpretation Comments Ventricular rate (test 75 code = 253) Atrial rate (test code 75 = 255) AZ interval (test code 150 = 266) QRSD interval (test 76 code = 260) QT interval (test code 380 = 264) QTC interval (test code 424 = 265) P axis 1 (test code = 26 267) QRS axis 1 (test code = 41 268) T wave axis (test code 17 = 270) EKG impression (test Poor data code = 273) quality-Normal sinus rhythm-Nonspecific T wave abnormality-Abnormal ECG-In automated comparison with ECG of 30-MAY-2019 16:47,-Nonspecific T wave abnormality, worse in Anterior leads- [address]2022-11-30 22:13:25 Test Item Value Reference Range Interpretation Comments Ventricular rate (test 75 code = 253) Atrial rate (test code 75 = 255) AZ interval (test code 150 = 266) QRSD interval (test 76 code = 260) QT interval (test code 380 = 264) QTC interval (test code 424 = 265) P axis 1 (test code = 26 267) QRS axis 1 (test code = 41 268) T wave axis (test code 17 = 270) EKG impression (test Poor data code = 273) quality-Normal sinus rhythm-Nonspecific T wave abnormality-Abnormal ECG-In automated comparison with ECG of 30-MAY-2019 16:47,-Nonspecific T wave abnormality, worse in Anterior leads- [address]2022-11-30 22:13:25 Test Item Value Reference Range Interpretation Comments Ventricular rate (test 75 code = 253) Atrial rate (test code 75 = 255) AZ interval (test code 150 = 266) QRSD interval (test 76 code = 260) QT interval (test code 380 = 264) QTC interval (test code 424 = 265) P axis 1 (test code = 26 267) QRS axis 1 (test code = 41 268) T wave axis (test code 17 = 270) EKG impression (test Poor data code = 273) quality-Normal sinus rhythm-Nonspecific T wave abnormality-Abnormal ECG-In automated comparison with ECG of 30-MAY-2019 16:47,-Nonspecific T wave abnormality, worse in Anterior leads- Mandaen [id number] (COVID-19) RNA [Presence] in Respiratory specimen by EMILY with probe [id number] 22:49:50 Test Item Value Reference Range Interpretation Comments SARS-CoV-2 (COVID-19) RNA Not detected Not-Detected [Presence] in Respiratory specimen by EMILY with probe detection (test code = 15656-4) CODY MCKEON, FLUORO, NON-SPECIFIC, UP TO 1 [id number] 08:26:00 Reason for exam:->Chronic PainFINAL REPORT A fluoroscopic unit was utilized for a procedure performed in the operating room. No interpretation was requested. Please refer to the operative report regarding findings. Please refer to PACS for patient radiation dose information. Signed: Peri Qureshi MDReport Verified Date/Time: 10/09/2019 08:26:53 Reading Location: [facility] Radiology Reading Room
--- NOTE | 2023-06-19 19:39 | RAD REPORT ---
EXAM DESCRIPTION: RAD - Knee Left 3 View - 06/19/2023 7:34 pm CLINICAL HISTORY: PAIN COMPARISON: Knee Left 2 View dated 11/09/2011 FINDINGS: Moderate soft tissue swelling is seen anterior knee. Left total knee arthroplasty is noted . No hardware complication seen. No joint effusion evident. No fracture appreciated.
[2023-06-19] MEDS ORDERED: DIAZEPAM 2 MG TABLET ONE (19:40)
--- NOTE | 2023-06-19 19:40 | RAD REPORT ---
EXAM DESCRIPTION: RAD - Forearm Left - 06/19/2023 7:34 pm CLINICAL HISTORY: Smash injury;Pain COMPARISON: Forearm Left dated 07/07/2016 FINDINGS: Hardware is present distal radius. Small olecranon spur. Moderate soft tissue swelling brad ng the dorsum of the forearm. No acute fracture appreciated.
--- NOTE | 2023-06-19 19:54 | ER ---
Nurse's Notes 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 patient currently rates her pain to be a 6/10 on the pain scale. patient states she also has a fentanyl pain pump. Coronavirus screen: At this time, the client does not indicate any symptoms associated with coronavirus-19. Ebola Screen: No symptoms or risks identified at this time. Initial Sepsis Screen: Does the patient meet any 2 criteria? No. Patient's initial sepsis screen is negative. Does the patient have a suspected source of infection? No. Patient's initial sepsis screen is negative. Risk Assessment: Do you want to hurt yourself or someone else? Patient reports no desire to harm self or others. Onset of symptoms was June 19, 2023 at 18:45. 19:14 Method Of Arrival: Ambulatory ap3 19:14 Acuity: CHEN 3 ap3 Triage Assessment: 19:17 General: Appears in no apparent distress. Behavior is calm, cooperative, appropriate ap3 for age. Pain: Complains of pain in left arm and left knee Pain currently is 6 out of 10 on a pain scale. Neuro: Level of Consciousness is awake, alert, obeys commands, Oriented to person, place, time, situation. Cardiovascular: Patient's skin is warm and dry. Respiratory: Airway is patent Respiratory effort is even, unlabored, Respiratory pattern is regular, symmetrical. Derm: Bruising that is on palmar aspect of left forearm. Historical: - Allergies: 19:16 Adhesives; ap3 19:16 Celebrex; ap3 19:16 Demerol; ap3 - Home Meds: 19:16 fentanyl pain pump [Active]; ap3 - PMHx: 19:16 Adenocarcinoma of the Lungs; Anxiety; CHF; CHF; COPD; COPD; CSF leak; CSF leak; ap3 Depression; Depression; Hypertension; Hypothyroidism; Myocardial infarction; osteo arthirtis; pericardial effusion; pericarditis; Renal Disease; Rheumatoid Arthritis; Stage 4 Lung Cencer- currently on Chemo; - Immunization history:: Client reports having NOT received the Covid vaccine. - Social history:: Smoking status: Patient denies any tobacco usage or history of. Screenin:18 Abuse screen: Denies threats or abuse. Nutritional screening: No deficits noted. ap3 Tuberculosis screening: No symptoms or risk factors identified. 20:19 [facility] ED Fall Risk Assessment (Adult) History of falling in the last 3 months, me1 including since admission Yes- single mechanical fall (1 pt) Confusion or Disorientation No (0 pts) Intoxicated or Sedated No (0 pts) Impaired Gait No (0 pts) Mobility Assist Device Used No (0 pt) Altered Elimination No (0 pt) Score/Fall Risk Level 0 - 2 = Low Risk Maintained a safe environment, Educated pt \T\ family on fall prevention, incl call for assistance when getting out of bed, Provided non-skid footwear, Hourly rounding (assess needs \T\ fall precautionary measures) done. 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 Bruise noted to left forearm. Pain: Complains of pain in palmar aspect of left forearm and left leg and left arm and left knee Pain does not radiate. Pain currently is 6 out of 10 on a pain scale. Quality of pain is described as throbbing, Pain began suddenly, Is continuous. Neuro: Level of Consciousness is awake, alert, obeys commands, Oriented to person, place, time, situation, Appropriate for age. Cardiovascular: Capillary refill < 3 seconds Patient's skin is warm and dry. Respiratory: Airway is patent Respiratory effort is even, unlabored, Respiratory pattern is regular, symmetrical. Musculoskeletal: Swelling present in palmar aspect of left forearm and left knee. Injury Description: fall. Vital Signs: 19:14 BP 169 / 88; Pulse 86; Resp 17; Temp 98.2; Pulse Ox 100% ; Weight 96.16 kg; Pain 6/10; ap3 19:16 BP 118 / 68; Pulse 77; Resp 16; Pulse Ox 97% on R/A; me1 20:00 BP 153 / 69; Pulse 86; Resp 18; Pulse Ox 97% on R/A; me1 19:14 Pain Scale: Adult ap3 ED Course: 19:09 Patient arrived in ED. mr 19:10 Ninfa Mensah MD is Private Physician. mr 19:11 Charisse Jefferson FNP-C is [facility]. snw 19:11 Brigido Yepez MD is Attending Physician. snw 19:16 Triage completed. ap3 19:18 Arm band placed on right wrist. ap3 19:19 Moon Whiteside, ALEX is Primary Nurse. me1 19:35 Knee Left 3 View XRAY In Process Unspecified. EDMS 19:35 Forearm Left XRAY In Process Unspecified. EDMS 19:53 Ninfa Mensah MD is Referral Physician. snw 20:19 Patient has correct armband on for positive identification. Bed in low position. Call me1 light in reach. Side rails up X 1. Provided Education on: POC. Verbalized understanding. . 20:19 No provider procedures requiring assistance completed. IV discontinued, intact, me1 bleeding controlled, No redness/swelling at site. Pressure dressing applied. Administered Medications: 19:35 Drug: Diazepam PO 2 mg PO once Route: PO; me1 20:17 Follow up: Response: No adverse reaction me1 Medication: 19:18 VIS not applicable for this client. ap3 Outcome: 19:54 Discharge ordered by . snw 20:26 Discharged to home ambulatory, with family, me1 20:26 Condition: stable 20:26 Discharge instructions given to patient, Instructed on discharge instructions, follow up and referral plans. Demonstrated understanding of instructions, follow-up care, 20:26 Patient left the ED. me1 Signatures: Dispatcher [employer] EDLA Charisse Jefferson FNP-C B[employer]ING[employer] SCHOOL PSYCHOLOGIST-Csn MarquezVenecia, Reg Reg mr Pia Worthington, RN RN ap3 Moon Whiteside, ALEX RN me1 Corrections: (The following items were deleted from the chart) 20:23 19:16 BP 153 / 69; Pulse 86bpm; Resp 18bpm; Pulse Ox 97% RA; me1 me1
--- NOTE | 2023-06-19 19:54 | EDPHYS ---
Physician Documentation [facility] Name: Anisha Lindsay Age: 57 yrs Sex: Female : 1965 Arrival Date: 06/19/2023 Time: 19:07 Bed 17 Private MD: Ninfa Mensah R ED Physician Brigido Yepez HPI: 06/19 19:24 This 57 yrs old Female presents to ER via Ambulatory with complaints of Fall Injury, snw Arm Injury. 19:24 Details of fall: The patient fell from an upright position, tripped on slipper and fell snw to both knees and left forearm. Onset: The symptoms/episode began/occurred acutely. The patient has experienced similar episodes in the past. It is unknown whether or not the patient has recently seen a physician. hx Viola[facility]. Historical: - Allergies: 19:16 Adhesives; ap3 19:16 Celebrex; ap3 19:16 Demerol; ap3 - Home Meds: 19:16 fentanyl pain pump [Active]; ap3 - PMHx: 19:16 Adenocarcinoma of the Lungs; Anxiety; CHF; CHF; COPD; COPD; CSF leak; CSF leak; ap3 Depression; Depression; Hypertension; Hypothyroidism; Myocardial infarction; osteo arthirtis; pericardial effusion; pericarditis; Renal Disease; Rheumatoid Arthritis; Stage 4 Lung Cencer- currently on Chemo; - Immunization history:: Client reports having NOT received the Covid vaccine. - Social history:: Smoking status: Patient denies any tobacco usage or history of. ROS: 19:23 Constitutional: Negative for fever, chills, and weight loss, Eyes: Negative for injury, snw pain, redness, and discharge, ENT: Negative for injury, pain, and discharge, Neck: Negative for injury, pain, and swelling, Cardiovascular: Negative for chest pain, palpitations, and edema, Respiratory: Negative for shortness of breath, cough, wheezing, and pleuritic chest pain, Abdomen/GI: Negative for abdominal pain, nausea, vomiting, diarrhea, and constipation, Back: Negative for injury and pain, : Negative for injury, bleeding, discharge, and swelling, Skin: Negative for injury, rash, and discoloration, Neuro: Negative for headache, weakness, numbness, tingling, and seizure, Psych: Negative for depression, anxiety, suicide ideation, homicidal ideation, and hallucinations, 19:23 MS/extremity: Positive for injury or acute deformity, ecchymosis, of the palmar aspect of left forearm and left knee, Exam: 19:22 Constitutional: This is a well developed, well nourished patient who is awake, alert, snw and in no acute distress. Head/Face: Normocephalic, atraumatic. Eyes: Pupils equal round and reactive to light, extra-ocular motions intact. Lids and lashes normal. Conjunctiva and sclera are non-icteric and not injected. Cornea within normal limits. Periorbital areas with no swelling, redness, or edema. ENT: Nares patent. No nasal discharge, no septal abnormalities noted. Tympanic membranes are normal and external auditory canals are clear. Oropharynx with no redness, swelling, or masses, exudates, or evidence of obstruction, uvula midline. Mucous membranes moist. Neck: Trachea midline, no thyromegaly or masses palpated, and no cervical lymphadenopathy. Supple, full range of motion without nuchal rigidity, or vertebral point tenderness. No Meningismus. Chest/axilla: Normal chest wall appearance and motion. Nontender with no deformity. No lesions are appreciated. Cardiovascular: Regular rate and rhythm with a normal S1 and S2. No gallops, murmurs, or rubs. Normal PMI, no JVD. No pulse deficits. Respiratory: Lungs have equal breath sounds bilaterally, clear to auscultation and percussion. No rales, rhonchi or wheezes noted. No increased work of breathing, no retractions or nasal flaring. Abdomen/GI: Soft, non-tender, with normal bowel sounds. No distension or tympany. No guarding or rebound. No evidence of tenderness throughout. Back: No spinal tenderness. No costovertebral tenderness. Full range of motion. Neuro: Awake and alert, GCS 15, oriented to person, place, time, and situation. Cranial nerves II-XII grossly intact. Motor strength 5/5 in all extremities. Sensory grossly intact. Cerebellar exam normal. Normal gait. Psych: Awake, alert, with orientation to person, place and time. Behavior, mood, and affect are within normal limits. 19:22 Skin: Appearance: ecchymosis, noted on the, palmar aspect of left forearm and left knee, Vital Signs: 19:14 BP 169 / 88; Pulse 86; Resp 17; Temp 98.2; Pulse Ox 100% ; Weight 96.16 kg; Pain 6/10; ap3 19:16 BP 118 / 68; Pulse 77; Resp 16; Pulse Ox 97% on R/A; me1 20:00 BP 153 / 69; Pulse 86; Resp 18; Pulse Ox 97% on R/A; me1 19:14 Pain Scale: Adult ap3 MDM: 19:17 Patient medically screened. snw 20:12 Differential diagnosis: contusion, fracture, sprain. Data reviewed: vital signs, nurses snw notes, radiologic studies, plain films. I considered the following discharge prescriptions or medication management in the emergency department Medications were administered in the Emergency Department. See MAR. Counseling: I had a detailed discussion with the patient and/or guardian regarding the historical points, exam findings, and any diagnostic results supporting the discharge/admit diagnosis, the presence of at least one elevated blood pressure reading (>120/80) during this emergency department visit, radiology results, the need for outpatient follow up, for definitive care, to return to the emergency department if symptoms worsen or persist or if there are any questions or concerns that arise at home. Response to treatment: the patient's symptoms have mildly improved after treatment. Special discussion: Based on the history and exam findings, there is no indication for further emergent testing or inpatient evaluation. I discussed with the patient/guardian the need to see the primary care provider for further evaluation of the symptoms. 06/19 19:22 Order name: Knee Left 3 View XRAY; Complete Time: 19:45 snw 06/19 19:22 Order name: Forearm Left XRAY; Complete Time: 19:45 snw 06/19 19:46 Order name: Gurwinder wrap-joint: left knee; Complete Time: 20:17 snw 06/19 19:46 Order name: Gurwinder Wrap: left forearm; Complete Time: 20:17 snw Administered Medications: 19:35 Drug: Diazepam PO 2 mg PO once Route: PO; me1 20:17 Follow up: Response: No adverse reaction me1 Disposition: 23:01 Co-signature as Attending Physician, Brigido Yepez MD I agree with the assessment and kdr plan of care. Disposition Summary: 06/19/23 19:54 Discharge Ordered Notes: Location: Home snw Condition: Stable snw Diagnosis - Fall on same level from slipping, tripping and stumbling with subsequent striking snw against object - Contusion of forearm snw - Contusion of left knee snw Followup: snw - With: Emergency Department - When: As needed - Reason: Worsening of condition Followup: snw - With: Ninfa Mensah MD - When: 1 - 2 days - Reason: Recheck today's complaints, Continuance of care, Re-evaluation by your physician Discharge Instructions: - Discharge Summary Sheet snw - Contusion snw - Fall Prevention in the Home, Adult snw Forms: - Medication Reconciliation Form snw - Thank You Letter snw - Antibiotic Education snw - Prescription Opioid Use snw - Patient Portal Instructions snw - Leadership Thank You Letter snw Signatures: Dispatcher [employer] Brigido Hayes MD MD kdr Waters, Shelly, PHYSICAL THERAPY AIDES TEACHER-C PHYSICAL THERAPY AIDES TEACHER-Csnw Pia Worthington RN RN ap3 Moon Whiteside RN RN me1
[2023-06-19 21:03] VITALS: TEMP 98.2
[2023-06-19 21:04] VITALS: O2SAT 97
[2023-06-19 21:05] VITALS: BP 153/69
== END 2023-06-19 20:26 | disposition home or self-care (01) ==
LOC: ER 19:07
DX: S80.02XA Contusion of left knee, initial encounter (principal); S50.12XA Contusion of left forearm, initial encounter; W01.10XA Fall on same level from slipping, tripping and stumbling with subsequent striking against unspecified object, initial encounter; C34.90 Malignant neoplasm of unspecified part of unspecified bronchus or lung; I10 Essential (primary) hypertension; Z88.5 Allergy status to narcotic agent; Z88.8 Allergy status to other drugs, medicaments and biological substances; Z91.048 Other nonmedicinal substance allergy status; Z28.310 Unvaccinated for COVID-19; Z97.8 Presence of other specified devices
CPT/HCPCS: 99283

== ENCOUNTER 2024-06-04 15:13 | Emergency (ER) | payer OTHER ==
--- OUTSIDE RECORDS SUMMARY | 2024-06-04 15:15 | XMS REPORT | Clinical Summary ---
Author Name Unknown Organization 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 Active furosemide (LASIX) 20 mg tablet Take 40 mg by mouth as needed. Active gabapentin (NEURONTIN) 800 mg tablet Take 800 mg by mouth every 6 (six) hours. Active levothyroxine (SYNTHROID, LEVOTHROID) 50 mcg tablet Take 50 mcg by mouth every morning. Active metoprolol tartrate (LOPRESSOR) 50 mg tablet Take 50 mg by mouth every morning. Active ondansetron (ZOFRAN) 4 mg tablet Take 4 mg by mouth every 8 (eight) hours as needed. Active OFLOXACIN OPHTHALMIC Administer 1 drop into the left eye every 6 (six) hours. Active prednisoLONE acetate (PRED FORTE) 1% ophthalmic suspension Administer 1 drop into the left eye every 6 (six) hours. Active sertraline (ZOLOFT) 50 mg tablet Take 50 mg by mouth every evening. Active oxyCODONE (ROXICODONE) 15 mg immediate release tablet Take 15 mg by mouth every 8 (eight) hours as needed. 0 05/12/2018 Active tiZANidine (ZANAFLEX) 4 mg tablet Take 4 mg by mouth twice daily. 01/22/2015 Active colestipol (COLESTID) 5 gram granules Take 1 g by mouth daily. Active pantoprazole (PROTONIX) 40 mg EC tablet Take 40 mg by mouth daily with breakfast. Active polyethylene glycol (MIRALAX) 17 g packetIndications:con stipation Take 17 g by mouth daily. Active albuterol (VENTOLIN HFA,PROAIR HFA) 90 mcg/puff inhalerIndications:br onchospasm prevention Inhale 2 puffs by mouth every 6 (six) hours as needed for wheezing or shortness of breath. Active potassium chloride (MICRO-K) 10 mEq CR capsuleIndications:hy pokalemia prevention Take 10 mEq by mouth as needed for hypokalemia. Active Active Problems Problem Noted Date Diagnosed Date Adenocarcinoma of upper lobe of right lung 06/02 Rheumatoid arthritis 06/02/2018 Surgical History Surgery Date Site/Laterality Comments APPENDECTOMY 09/05/2014 LUNG SURGERY O05/22/2018 COLONOSCOPY 05/20/2018 HERNIA REPAIR 01/03/2015 HYSTERECTOMY 09/05/2013 Partial, one ovary BRONCHOSCOPY 01/03/2018 THYROID SURGERY 09/05/2013 left lobectomy CHOLECYSTECTOMY 09/05/2014 KNEE ARTHROPLASTY 09/05/2014 Left UPPER GASTROINTESTINAL ENDOSCOPY 05/20/1018 TONSILLECTOMY WRIST SURGERY Left CORNEAL TRANSPLANT LUNG LOBECTOMY Right Medical History Medical History Date Comments Hypertension 09/05/2014 Myocardial infarction 02/04/1016 Functional visual loss 09/05/2014 Blind in left eye Gastric reflux 09/05/1014 Irritable bowel syndrome 09/05/2014 Sexual dysfunction 09/05/2016 Painful inter course, no desire Menopause 09/05/1014 Rheumatoid arthritis 09/05/2013 [...] Used Date Smoking Tobacco: Former Cigarettes 1.5 18.9 0 09/05/1980 - 08/05/1999 Smokeless Tobacco: Never Alcohol Use Standard Drinks/Week Comments No 0 (1 standard drink = 0.6 oz pur e alcohol) Sex and Gender Information Value Date Recorded Sex Assigned at Not on file Gender Identity Not on file Sexual Orientation Not on file Obstetrics History Plan of Treatment Health Maintenance Due Date Last Done Comments COVID-19 Vaccine ( - 2023-2 5 season) 2024 Influenza Vaccine (#1) 2024 Pneumococcal Vaccine: Pediat rics (0 to 5 Years) and At-Risk Patients (6 to 64 Years) Aged Out No longer eligi ble based on patient's age to complete this topic Care Teams Marine Electrician Helper Relationship Specialty Start Date End Date Osman Watts MD [address] [facility] [address] [place] [address] PCP - External Follow Up A Critical Care 05/26/18 Kris Lund MD [address] [place] [address] [email or web address] PCP - General Thoracic Medicine 05/26/18
[2024-06-04 16:06] LABS: Absolute Eosinophils 0.1 K/uL (0-0.5); Absolute Lymphocytes (CBC) 1.6 K/uL (0.7-4.9); Absolute Monocytes 0.5 K/uL (0.1-1.3); Absolute Neutrophil 2.4 K/uL (1.8-8.0); Basophils % 0.7 % (0-1.3); Eosinophils % 2.6 % (0-4.4); Hematocrit 35.2 % (36.0-45.0); Hemoglobin 11.9 g/dL (12.0-15.0); Lymphocytes % 34.1 % (15.3-44.8); MCH 29.3 pg (27.0-35.0); MCHC 33.8 g/dL (32.0-36.0); MCV 86.5 fL (80-100); MPV 7.7 fL (7.6-11.3); Monocytes % 10.2 % (3.3-12.3); Neutrophils % 52.4 % (41.7-73.7); Nucleated Red Blood Cells % 0.1 % (0-0); Platelets 165 thou/uL (152-406); RBC Red Blood Cell Count 4.07 M/uL (3.86-4.86); Red Cell Distribution Width 13.5 % (12.1-15.2)
[2024-06-04] MEDS ORDERED: FENTANYL CITR 100 MCG/2 ML ONE (16:14)
--- NOTE | 2024-06-04 16:18 | RAD REPORT ---
Procedure: Chest Single View History: Chest pain Comparison: September 2023 The lungs appear clear of acute infiltrate. No significant pleural effusion noted. The heart is normal size. Central venous catheter in place Old rib fractures IMPRESSION: No acute abnormality is displayed.
[2024-06-04 16:24] LABS: Anion Gap 3.8 mEq/L (5.0-15.0); Magnesium 1.9 mg/dL (1.6-2.4); Potassium 3.8 mEq/L (3.5-5.1)
--- NOTE | 2024-06-04 16:41 | RAD REPORT ---
Exam:Knee Right 3 View HISTORY: Right knee pain FINDINGS: No fracture or dislocation seen Marked osteoarthritis medial and patellofemoral compartments consisting of joint space narrowing and osteophytes Small joint effusion
--- NOTE | 2024-06-04 18:18 | RAD REPORT ---
EXAM:Extremity Venous Uni Ltd HISTORY: Leg pain TECHNIQUE: Sonographic evaluation right lower extremity performed.Grayscale, color and spectral oni sis performed on all vessels COMPARISON: 2019 FINDINGS: Right common femoral, superficial femoral, greater saphenous, popliteal and right posterior tibial veins are compressible and demonstrate augmentation. Doppler demonstrates good flow. IMPRESSION: No evidence of deep venous thrombosis involving the right lower extremity.
[2024-06-04] MEDS ORDERED: KETOROLAC 30 MG/ML INJ ONE (18:31)
--- NOTE | 2024-06-04 19:06 | EDPHYS ---
Physician Documentation [facility] Name: Anisha Lindsay Age: 58 yrs Sex: Female : 1965 Arrival Date: 06/04/2024 Time: 15:13 Bed 16 Private MD: ED Physician Bean oCnrad HPI: 06/04 15:40 This 58 yrs old Female presents to ER via Ambulatory with complaints of Knee Pain, cp Chest Pain. 15:40 The patient or guardian reports chest pain that is located primarily in the anterior cp chest wall, right lower chest below breast. 15:40 Onset: today. The pain radiates to right back. Associated signs and symptoms: Pertinent cp positives: right knee pain and right knee swelling after injuring knee couple weeks ago with fall, Pertinent negatives: abdominal pain, cough, diaphoresis, shortness of breath, vomiting. The chest pain is described as sharp. Duration: The patient or guardian reports a single episode, that is still ongoing. Historical: - Allergies: 15:25 Demerol; iw 15:25 Celebrex; iw 15:25 Adhesives; iw - PMHx: 15:25 Adenocarcinoma of the Lungs; Anxiety; CHF; COPD; CSF leak; Depression; Hypertension; iw Hypothyroidism; Myocardial infarction; osteo arthirtis; pericardial effusion; pericarditis; Renal Disease; Rheumatoid Arthritis; Stage 4 Lung Cencer- currently on Chemo; - Immunization history:: Adult Immunizations up to date. - Infectious Disease History:: Denies. - Social history:: Smoking status: unknown. ROS: 15:45 Cardiovascular: Positive for chest pain, Negative for palpitations, cp 15:45 Eyes: Negative for injury, pain, redness, and discharge, cp 15:45 Constitutional: Negative for body aches, chills, fever, poor PO intake, 15:45 Neck: Negative for pain with movement, pain at rest, stiffness, 15:45 Respiratory: Negative for cough, wheezing, 15:45 Abdomen/GI: Negative for abdominal pain, vomiting, diarrhea, constipation, 15:45 Back: Positive for radiated pain, Negative for decreased range of motion, 15:45 : Negative for urinary symptoms, flank pain, 15:45 MS/extremity: Positive for pain, swelling, tenderness, of the right knee, Negative for deformity, paresthesias, 15:45 Neuro: Negative for altered mental status, dizziness, headache, numbness, syncope, weakness, 15:45 All other systems are negative, Exam: 15:50 Constitutional: The patient appears in no acute distress, alert, awake, cp non-diaphoretic, non-toxic, well developed, well nourished, obese, 15:50 Head/Face: Normocephalic, atraumatic. cp 15:50 Eyes: Periorbital structures: appear normal, Conjunctiva: normal, no exudate, no cp injection, Sclera: no appreciated abnormality, Lids and lashes: appear normal, bilaterally, 15:50 ENT: External ear(s): are unremarkable, Nose: is normal, Mouth: Lips: moist, Oral mucosa: moist, Posterior pharynx: Airway: no evidence of obstruction, patent, 15:50 Neck: ROM/movement: is normal, is supple, without pain, no range of motions limitations, 15:50 Chest/axilla: Inspection: normal, Palpation: crepitus, is not appreciated, tenderness, is not appreciated, 15:50 Cardiovascular: Rate: normal, Rhythm: regular, JVD: is not appreciated, 15:50 Respiratory: the patient does not display signs of respiratory distress, Respirations: normal, no use of accessory muscles, no retractions, labored breathing, is not present, Breath sounds: are clear throughout, no decreased breath sounds, no stridor, no wheezing, 15:50 Abdomen/GI: Inspection: abdomen appears normal, Palpation: abdomen is soft and non-tender, in all quadrants, 15:50 Back: CVA tenderness, is absent, 15:50 Neuro: Orientation: to person, place \T\ time. Mentation: is normal, Motor: moves all fours, no focal deficits, Sensation: no obvious gross deficits, 15:50 Musculoskeletal/extremity: Extremities: noted in the right knee: swelling, tenderness, cp ROM: limited passive range of motion due to pain, 15:50 Skin: cellulitis, is not appreciated, 15:53 ECG was reviewed by the Attending Physician. cp Vital Signs: 15:24 BP 124 / 91; Pulse 86; Resp 16; Temp 97.1; Pulse Ox 97% on R/A; Weight 102.06 kg; iw Height 5 ft. 2 in. ; Pain 7/10; 16:00 BP 107 / 70; Pulse 72; Resp 16; Pulse Ox 94% on R/A; cm10 17:00 BP 103 / 60; Pulse 93; Resp 15; Pulse Ox 100% on R/A; cm10 17:30 BP 108 / 65; Pulse 60; Resp 16; Pulse Ox 100% on R/A; cm10 19:33 BP 114 / 70; Pulse 60; Resp 16; Pulse Ox 100% ; cm10 15:24 Body Mass Index 41.15 (102.06 kg, 157.48 cm) iw 15:24 Pain Scale: Adult iw MDM: 15:33 Patient medically screened. 19:06 Data reviewed: vital signs, nurses notes, lab test result(s), EKG, radiologic studies, cp plain films, ultrasound, and as a result, I will discharge patient. 06/04 15:33 Order name: Basic Metabolic Panel; Complete Time: 16:48 cm10 06/04 16:48 Interpretation: Normal except: ANION GAP 3.8; BUN 25; CRE 1.72; GFR 34. 06/04 15:33 Order name: CBC with Diff; Complete Time: 16:48 cm10 06/04 17:42 Interpretation: Normal except: HGB 11.9; HCT 35.2. 06/04 15:33 Order name: Magnesium; Complete Time: 16:48 cm10 06/04 15:33 Order name: Troponin HS; Complete Time: 16:48 cm10 06/04 15:33 Order name: XRAY Chest (1 view); Complete Time: 16:48 [place] 06/04 16:03 Order name: XRAY Knee RIGHT 3 view; Complete Time: 16:48 06/04 16:58 Order name: US Extremity Venous Unilateral Ltd; Complete Time: 18:19 06/04 18:19 Interpretation: Report reviewed. 06/04 15:33 Order name: EKG; Complete Time: 15:33 10 06/04 15:33 Order name: Cardiac monitoring; Complete Time: 16:14 [place] 06/04 15:33 Order name: EKG - Nurse/Tech; Complete Time: 16:14 10 06/04 15:33 Order name: IV Saline Lock; Complete Time: 16:14 [place] 06/04 15:33 Order name: Labs collected and sent; Complete Time: 16:14 [place] 06/04 15:33 Order name: O2 Per Protocol; Complete Time: 16:14 cm10 06/04 15:33 Order name: O2 Sat Monitoring; Complete Time: 16:14 cm10 06/04 19:05 Order name: Knee Immobilizer; Complete Time: 19:53 cp EC:53 Rate is 73 beats/min. Rhythm is regular. MN interval is normal. QRS interval is normal. cp QT interval is normal. T waves are Inverted in lead aVR. Interpreted by me. Reviewed by me. Administered Medications: 16:26 Drug: fentaNYL (PF) IVP 50 mcg IVP once Route: IVP; Site: left antecubital; cm10 17:45 Follow up: Response: No adverse reaction cm10 17:42 CANCELLED (Physician Discretion): [id number] mg IVP once cp 18:37 Drug: Ketorolac IVP 15 mg IVP once Route: IVP; Site: left antecubital; cm10 20:00 Follow up: Response: No adverse reaction cm10 Disposition Summary: 06/04/24 19:06 Discharge Ordered Notes: Location: Home cp Problem: new cp Symptoms: have improved cp Condition: Stable cp Diagnosis - Pain in right knee cp - Chest pain, unspecified cp Followup: cp - With: Scott Verduzco MD - When: 2 - 3 days - Reason: right knee pain Discharge Instructions: - Discharge Summary Sheet cp - Nonspecific Chest Pain, Adult cp - How to Use a Knee Immobilizer cp - Acute Knee Pain, Adult cp Forms: - Medication Reconciliation Form cp - Antibiotic Education cp - Prescription Opioid Use cp - Patient Portal Instructions cp - Leadership Thank You Letter cp Prescriptions: - Mobic 7.5 mg Oral Tablet - take 1 tablet ORAL route once daily take with food; 20 tablet; Refills: 0, cp Product Selection Permitted Addendum: 06/06/2024 17:06 Co-signature as Attending Physician, Bean Conrad MD I reviewed the patient's care r n provided by the Advanced Practice Provider and agree with the diagnosis and treatment plan. Signatures: Dispatcher [employer] Promise Mathews RN RN iw Nieto, Roman, MD MD rn Page, Corey, PA PA cp Martinez, Clarissa, RN RN cm10 Corrections: (The following items were deleted from the chart) 06/04 16:58 16:58 Extremity Venous Uni Ltd+[email or web address] ordered. EDMS EDMS 17:42 17:42 Ketorolac IVP 30 mg IVP once ordered. cp cp
--- NOTE | 2024-06-04 19:06 | ER ---
Nurse's Notes [facility] Name: Anisha Lindsay Age: 58 yrs Sex: Female : 1965 Arrival Date: 06/04/2024 Time: 15:13 Bed 16 Private MD: Diagnosis: Pain in right knee;Chest pain, unspecified Presentation: 06/04 15:23 Chief complaint: Patient states: fell three weeks ago and i think I may have iw hyperextended her right knee, the pain is getting worse , then at 4 am my chest started hurting, pain radiates through to her back and under her right breast. Coronavirus screen: At this time, the client does not indicate any symptoms associated with coronavirus-19. Ebola Screen: No symptoms or risks identified at this time. Initial Sepsis Screen: Does the patient meet any 2 criteria? No. Patient's initial sepsis screen is negative. Does the patient have a suspected source of infection? No. Patient's initial sepsis screen is negative. Risk Assessment: Do you want to hurt yourself or someone else? Patient reports no desire to harm self or others. 15:23 Method Of Arrival: Ambulatory iw 15:24 Acuity: CHEN 3 iw 15:24 Onset of symptoms was June 04, 2024. iw Triage Assessment: 20:01 General: Appears in no apparent distress. comfortable, Behavior is calm, cooperative. cm10 Historical: - Allergies: 15:25 Demerol; iw 15:25 Celebrex; iw 15:25 Adhesives; iw - PMHx: 15:25 Adenocarcinoma of the Lungs; Anxiety; CHF; COPD; CSF leak; Depression; Hypertension; iw Hypothyroidism; Myocardial infarction; osteo arthirtis; pericardial effusion; pericarditis; Renal Disease; Rheumatoid Arthritis; Stage 4 Lung Cencer- currently on Chemo; - Immunization history:: Adult Immunizations up to date. - Infectious Disease History:: Denies. - Social history:: Smoking status: unknown. Screenin:40 [facility] ED Fall Risk Assessment (Adult) History of falling in the last 3 months, cm10 including since admission No falls in past 3 months (0 pts) Confusion or Disorientation No (0 pts) Intoxicated or Sedated No (0 pts) Impaired Gait Yes (1 pt) Mobility Assist Device Used Yes (1 pt) Altered Elimination No (0 pt) Score/Fall Risk Level 0 - 2 = Low Risk Oriented to surroundings, Maintained a safe environment, Hourly rounding (assess needs \T\ fall precautionary measures) done. Abuse screen: Denies threats or abuse. Denies injuries from another. Nutritional screening: No deficits noted. Tuberculosis screening: No symptoms or risk factors identified. Assessment: 15:40 Pain: Complains of pain in chest and right leg Pain does not radiate. Pain currently is cm10 8 out of 10 on a pain scale. Quality of pain is described as sharp. Neuro: No deficits noted. Level of Consciousness is awake, alert, obeys commands, Oriented to person, place, time, situation, Appropriate for age. Cardiovascular: Chest pain quality is sharp, is located in right began 0400 episodes are continuous. Respiratory: No deficits noted. Airway is patent Respiratory effort is even, unlabored, Respiratory pattern is regular, symmetrical, Breath sounds are clear bilaterally. Derm: No deficits noted. Skin is intact, Skin is pink, warm \T\ dry. Musculoskeletal: Reports pain in right leg. 18:37 Reassessment: Patient appears in no apparent distress at this time. Patient and/or cm10 family updated on plan of care and expected duration. Pain level reassessed. Patient is alert, oriented x 3, equal unlabored respirations, skin warm/dry/pink. Vital Signs: 15:24 BP 124 / 91; Pulse 86; Resp 16; Temp 97.1; Pulse Ox 97% on R/A; Weight 102.06 kg; iw Height 5 ft. 2 in. ; Pain 7/10; 16:00 BP 107 / 70; Pulse 72; Resp 16; Pulse Ox 94% on R/A; cm10 17:00 BP 103 / 60; Pulse 93; Resp 15; Pulse Ox 100% on R/A; cm10 17:30 BP 108 / 65; Pulse 60; Resp 16; Pulse Ox 100% on R/A; cm10 19:33 BP 114 / 70; Pulse 60; Resp 16; Pulse Ox 100% ; cm10 15:24 Body Mass Index 41.15 (102.06 kg, 157.48 cm) iw 15:24 Pain Scale: Adult iw ED Course: 15:22 Patient arrived in ED. mg5 15:24 Triage completed. iw 15:25 Arm band placed on. iw 15:32 Janell Ng, RN is Primary Nurse. cm10 15:33 Андрей Astorga PA is PHCP. cp 15:33 Bean Conrad MD is Attending Physician. cp 15:40 Patient has correct armband on for positive identification. Bed in low position. Call cm10 light in reach. Side rails up X2. Client placed on continuous cardiac and pulse oximetry monitoring. NIBP monitoring applied. vision therapist on. 15:40 Initial lab(s) drawn, by me, sent to lab. EKG done, by ED staff, reviewed by Андрей SPRAGUE. Inserted saline lock: 20 gauge in left antecubital area, using aseptic technique. Blood collected. Flushed with 10 mL NS. 16:05 XRAY Chest (1 view) In Process Unspecified. EDMS 16:29 XRAY Knee RIGHT 3 view In Process Unspecified. EDMS 17:50 US Extremity Venous Unilateral Ltd In Process Unspecified. EDMS 19:05 Scott Verduzco MD is Referral Physician. cp 20:00 No provider procedures requiring assistance completed. IV discontinued, intact, cm10 bleeding controlled, No redness/swelling at site. Pressure dressing applied. Knee immobilizer applied on right knee. 20:01 Provided Education on: Follow-up intstructions. cm10 Administered Medications: 16:26 Drug: fentaNYL (PF) IVP 50 mcg IVP once Route: IVP; Site: left antecubital; cm10 17:45 Follow up: Response: No adverse reaction cm10 17:42 CANCELLED (Physician Discretion): [id number] mg IVP once cp 18:37 Drug: Ketorolac IVP 15 mg IVP once Route: IVP; Site: left antecubital; cm10 20:00 Follow up: Response: No adverse reaction cm10 Medication: 15:40 VIS not applicable for this client. cm10 Outcome: 19:06 Discharge ordered by . cp 20:01 Discharged to home via wheelchair, with family, cm10 20:01 Condition: good 20:01 Discharge instructions given to patient, Instructed on discharge instructions, follow up and referral plans. medication usage, Demonstrated understanding of instructions, follow-up care, medications, Prescriptions given X 1, 20:01 Patient left the ED. cm10 Signatures: Dispatcher [employer] EDPR Promise Hartman RN RN iw Андрей Astorga PA PA cp Martinez, Clarissa, RN RN cm10 Jeaneth Dallas mg5 Corrections: (The following items were deleted from the chart) 15: 15:23 Chief complaint: Patient states: fell three weeks ago and i think I may have iw hyperextended her right knee, the pain is getting worse iw 15:27 15:24 BP 124 / 91; Pulse 86bpm; Resp 16bpm; Pulse Ox 97% RA; Temp 97.1F; iw iw
[2024-06-04 20:46] VITALS: TEMP 97.1
[2024-06-04 20:49] VITALS: O2SAT 100
[2024-06-04 20:51] VITALS: BP 114/70
--- NOTE | 2024-06-06 13:04 | EKG ---
Test Date: 2024-06-04 Test Time: 15:46:33 Lokie Engineer: SHELTON MEASUREMENT RESULTS: Intervals: Rate: 73 NJ: 154 QRSD: 82 QT: 390 QTc: 429 Floral: P: 48 NJ: 154 QRS: 70 T: 44 INTERPRETIVE STATEMENTS: Normal sinus rhythm Normal ECG Compared to ECG 09/06/2023 14:49:27 No significant changes Electronically Signed On 06-06-24 12:56:44 CDT by Cory Hyman
== END 2024-06-04 20:01 | disposition home or self-care (01) ==
LOC: ER 15:13
DX: M25.561 Pain in right knee (principal); R07.89 Other chest pain; C34.90 Malignant neoplasm of unspecified part of unspecified bronchus or lung; I50.9 Heart failure, unspecified; I10 Essential (primary) hypertension; J44.9 Chronic obstructive pulmonary disease, unspecified
CPT/HCPCS: 93005; 85025; 80048; 36415; 83735; 84484; 71045; 73562; 93971; 96375; 96374; 99285; J3010

== ENCOUNTER 2024-07-25 19:01 | Emergency (ER) | payer OTHER ==
--- OUTSIDE RECORDS SUMMARY | 2024-07-25 19:05 | XMS REPORT | Clinical Summary ---
Author Name Unknown Organization [facility] [place] Address [address] [place] [address] Care Team Providers Care Building Equipment Operator Name Role Phone Osman Watts MD Unavailable [phone] Kris Lund MD Primary Care Provider [phone] Allergies Active Allergy Reactions Criticality Noted Date Comments Adhesive Tape-Silicones 07/25/2013 Celecoxib Swelling 07/15/2016 Meperidine Hives 07/15/2016 Medications * This document contains information received from the source organization and may not represent a complete record from that organization. fentaNYL (DURAGESIC) 100 mcg/hr transdermal patch Place [...] every 8 (eight) hours as needed. 0 8 Active tiZANidine (ZANAFLEX) 4 mg tablet Take 4 mg by mouth twice daily. 5 Active colestipol (COLESTID) 5 gram granules Take 1 g by mouth daily. Active pantoprazole (PROTONIX) 40 mg EC tablet Take 40 mg by mouth daily with breakfast. Active polyethylene glycol (MIRALAX) 17 g packetIndication s:constipation Take 17 g by mouth daily. Active albuterol (VENTOLIN HFA,PROAIR HFA) 90 mcg/puff inhalerIndicatio ns:bronchospasm prevention Inhale 2 puffs by mouth every 6 (six) hours as needed for wheezing or shortness of breath. 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 Not on file Not on file Obstetrics History Plan of Treatment Health Maintenance Due Date Last Done Comments COVID-19 Vaccine ( - 2023-2 5 season) 2024 Influenza Vaccine (#1) 2024 Pneumococcal Vaccine: Pediat rics (0 to 5 Years) and At-Risk Patients (6 to 64 Years) Aged Out No longer eligi ble based on patient's age to complete this topic Insurance MEDICARE PART A AND B MEDICARE PART A AND B MEDICARE PART A AND B [place] [id number] Care Teams Building Equipment Operator Relationship Specialty Start Date End Date Osman Watts MD [facility] [address] [place] [address] PCP - External Follow Up A Critical Care 05/26/18 Kris Lund MD [address] [place] [id number] [email or web address] PCP - General Thoracic Medicine 05/26/18
[2024-07-25] MEDS ORDERED: ONDANSETRON 4 MG/2 ML VIAL ONE (19:55)
[2024-07-25 20:05] LABS: Protime INR 0.98
[2024-07-25 20:06] LABS: Absolute Eosinophils 0.1 K/uL (0-0.5); Absolute Lymphocytes (CBC) 1.7 K/uL (0.7-4.9); Absolute Monocytes 0.5 K/uL (0.1-1.3); Absolute Neutrophil 3.5 K/uL (1.8-8.0); Basophils % 0.2 % (0-1.3); Eosinophils % 1.3 % (0-4.4); Hematocrit 37.5 % (36.0-45.0); Hemoglobin 12.6 g/dL (12.0-15.0); Lymphocytes % 29.1 % (15.3-44.8); MCH 29.4 pg (27.0-35.0); MCHC 33.5 g/dL (32.0-36.0); MCV 87.6 fL (80-100); MPV 7.7 fL (7.6-11.3); Monocytes % 8.6 % (3.3-12.3); Neutrophils % 60.8 % (41.7-73.7); Nucleated Red Blood Cells % 0.1 % (0-0); Platelets 189 thou/uL (152-406); RBC Red Blood Cell Count 4.28 M/uL (3.86-4.86); Red Cell Distribution Width 13.6 % (12.1-15.2)
[2024-07-25 20:12] LABS: Specific Gravity 1.015 (1.005-1.030); Sqamous Epithelial <5 /HPF (None Seen); Urine Bacteria None Seen /HPF (<20); Urine Bilirubin NEGATIVE (Negative); Urine Blood Negative (Negative); Urine Clarity Turbid (Clear); Urine Color Light-Yellow (Yellow); Urine Culture Reflex Order NOT NEEDED; Urine Glucose NEGATIVE (Negative); Urine Ketones NEGATIVE (Negative); Urine Microscopic Reflex YN ORDER UMIC; Urine Nitrite NEGATIVE (Negative); Urine Protein NEGATIVE (Negative); Urine RBC <5 /HPF (None Seen); Urine Urobilinogen Normal (Normal); Urine WBC <5 /HPF (<5); Urine Yeast (Budding) Trace /HPF (None Seen)
[2024-07-25 20:27] LABS: ALT/SGPT 16 U/L (13-56); AST/SGOT 13 U/L (15-37); Albumin 3.5 g/dL (3.4-5.0); Alkaline Phosphatase 56 U/L (45-117); Anion Gap 8.7 mEq/L (5.0-15.0); BUN Blood Urea Nitrogen 20 mg/dL (7-18); Bicarbonate 28 mEq/L (21-32); Bilirubin Total 0.3 mg/dL (0.2-1.0); Globulin 3.6 g/dL (2.3-3.5); Glomerular Filtration Rate 35 ml/min (=/>90); Glucose Level 96 mg/dL (74-106); NT PRO-BNP 430 pg/mL (<125); Potassium 3.7 mEq/L (3.5-5.1); Protein, Total 7.1 g/dL (6.4-8.2); Sodium Level 140 mEq/L (136-145)
[2024-07-25 20:30] LABS: Bilirubin Direct < 0.2 mg/dL (0-0.2); Bilirubin Indirect, Calculated 0.1 mg/dL (0.2-0.8)
--- NOTE | 2024-07-25 20:45 | RAD REPORT ---
EXAM: CT CHEST, ABDOMEN AND PELVIS WITHOUT CONTRAST CLINICAL INDICATION: Chest pain. Lung cancer. Abdominal pain. Vomiting TECHNIQUE: CT chest, abdomen and pelvis was performed, without IV contrast, as per department protoco l. Axial, sagittal and coronal reconstructions were obtained. One or more of the following dose reduction techniques were used: Automated exposure control, adjustment of the mA and/or kV according to the patient size, and/or iterative reconstruction. Unless otherwise specified, incidental findings do not require dedicated imaging follow-up. The lack of IV and oral contrast limits evaluation of the mediastinum, debbi, vessels, organs and brenden l. COMPARISON: [address] abdomen FINDINGS: Rectangular opacity left upper lobe likely post treatment change. Calcified granuloma right lung. No mediastinal or hilar lymphadenopathy seen. No pleural effusion. No pericardial effusion. Liver, spleen, pancreas, adrenals kidneys and bladder appear grossly normal There is no evidence of diverticulitis Cholecystectomy Hysterectomy. Post surgical changes ventral hernia repair .Small left inguinal hernia contains fat. No adnexal mass.. Duodenal diverticulum. Pain pump present. IMPRESSION: No evidence of recurrent neoplasm. No acute abnormality displayed
--- NOTE | 2024-07-25 20:46 | RAD REPORT ---
Procedure: Chest Single View HISTORY: Chest pain COMPARISON: May 2024 FINDINGS: The lungs appear clear of acute infiltrate. There is scarring left upper lobe. No significant pleural effusion noted. The heart is normal size. Central catheter in place. IMPRESSION: No acute abnormality is displayed.
--- NOTE | 2024-07-25 21:26 | ER ---
Nurse's Notes [facility] Name: Anisha Lindsay Age: 58 yrs Sex: Female : 1965 Arrival Date: 07/25/2024 Time: 19:01 Bed 14 Private MD: Ninfa Mensah R Diagnosis: Chest pain, unspecified;Acute Viral Illness, Non Cardiac Chest pain , Acute Viral Gastroenteritis Presentation: 07/25 19:04 Chief complaint: Patient states: CHEST PAIN SINCE THIS AFTERNOON, NAUSEA, VOMITING, AND ha1 NAUSEA. 19:04 Coronavirus screen: Vaccine status: Patient reports being unvaccinated. Ebola Screen: ha1 No symptoms or risks identified at this time. Initial Sepsis Screen: Does the patient meet any 2 criteria? No. Patient's initial sepsis screen is negative. Does the patient have a suspected source of infection? No. Patient's initial sepsis screen is negative. Risk Assessment: Do you want to hurt yourself or someone else? Patient reports no desire to harm self or others. Onset of symptoms was July 25, 2024. 19:04 Method Of Arrival: Wheelchair ha1 19:04 Acuity: CHEN 2 ha1 Triage Assessment: 19:04 General: Appears uncomfortable, Behavior is cooperative. Pain: Complains of pain in ha1 chest Pain does not radiate. Pain currently is 8 out of 10 on a pain scale. Quality of pain is described as pressure, Pain began gradually, 4 hours ago. Neuro: Level of Consciousness is awake, alert, obeys commands, Oriented to person, place, time, situation. Cardiovascular: Reports chest pain, Heart tones S1 S2 Capillary refill < 3 seconds Rhythm is sinus tachycardia. Respiratory: Airway is patent Respiratory effort is even, unlabored, Respiratory pattern is regular, symmetrical. GI: Abdomen is round non-distended, obese, Reports nausea, vomiting. : No signs and/or symptoms were reported regarding the genitourinary system. Musculoskeletal: Circulation, motion, and sensation intact. Range of motion: intact in all extremities. 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 - Infectious Disease History:: Denies. - Social history:: Smoking status: Patient denies any tobacco usage or history of. - Family history:: not pertinent. - Hospitalizations: : No recent hospitalization is reported. Screenin:29 [facility] ED Fall Risk Assessment (Adult) History of falling in the last 3 months, ha1 including since admission Yes- single mechanical fall (1 pt) Confusion or Disorientation No (0 pts) Intoxicated or Sedated No (0 pts) Impaired Gait Yes (1 pt) Mobility Assist Device Used Yes (1 pt) Altered Elimination No (0 pt) Score/Fall Risk Level 3 or more points = High Risk Oriented to surroundings, Maintained a safe environment, Educated pt \T\ family on fall prevention, incl call for assistance when getting out of bed, Hourly rounding (assess needs \T\ fall precautionary measures) done. Abuse screen: Denies threats or abuse. Denies injuries from another. Nutritional screening: No deficits noted. Tuberculosis screening: No symptoms or risk factors identified. Assessment: 19:04 Reassessment: SEE TRIAGE ASSESSMENT. ha1 20:10 Reassessment: Patient and/or family updated on plan of care and expected duration. Pain ha1 level reassessed. Patient is alert, oriented x 3, equal unlabored respirations, skin warm/dry/pink. NAUSEA DECREASED. PAIN 8/10 Patient states feeling better. Patient states symptoms have improved. 21:00 Reassessment: Patient and/or family updated on plan of care and expected duration. Pain ha1 level reassessed. Patient is alert, oriented x 3, equal unlabored respirations, skin warm/dry/pink. 21:52 Reassessment: Patient and/or family updated on plan of care and expected duration. Pain ha1 level reassessed. Patient is alert, oriented x 3, equal unlabored respirations, skin warm/dry/pink. Patient denies pain at this time. Patient states feeling better. Patient states symptoms have improved. Vital Signs: 19:04 BP 159 / 111; Pulse 112; Resp 18 S; Temp 98.2(O); Pulse Ox 99% on R/A; Weight 101.15 ha1 kg; Height 5 ft. 2 in. ; 20:30 BP 158 / 83; Pulse 94; Resp 17 S; Pulse Ox 97% on R/A; ha1 22:00 BP 151 / 95; Pulse 81; Resp 18 S; Temp 98.2(O); Pulse Ox 97% on R/A; ha1 19:04 Body Mass Index 40.79 (101.15 kg, 157.48 cm) ha1 [place] Coma Score: 21:31 Eye Response: spontaneous(4). Motor Response: obeys commands(6). Verbal Response: sp4 oriented(5). Total: 15. ED Course: 19:02 Patient arrived in ED. am2 19:03 Ninfa Mensah MD is Private Physician. am2 19:04 Arm band placed on right wrist. EKG completed in triage. Results shown to MD. ha1 19:04 Patient has correct armband on for positive identification. Placed in gown. Bed in low ha1 position. Call light in reach. Side rails up X2. Adult w/ patient. Client placed on continuous cardiac and pulse oximetry monitoring. NIBP monitoring applied. nurse monitoring on. 19:04 Provided Education on: PLAN OF CARE . ha1 19:19 Bean Conrad MD is Attending Physician. rn 19:21 Lexi Thapa RN is Primary Nurse. ha1 19:26 Triage completed. ha1 19:30 Patient maintains SpO2 saturation greater than 95% on room air. ha1 19:30 Inserted saline lock: 22 gauge antecubital area, using aseptic technique. Blood ha1 collected. Flushed with 10 mL NS. 19:49 Basic Metabolic Panel Sent. ha1 19:49 CBC with Diff Sent. ha1 19:49 LFT's Sent. ha1 19:49 NT PRO-BNP Sent. ha1 19:49 PT-INR Sent. ha1 19:49 Troponin HS Sent. ha1 20:05 Attending Physician role handed off by Bean Conrad MD sp4 20:05 Cornelio Figueroa MD is Attending Physician. sp4 20:21 CT Chest Abdomen Pelvis W/O Contrast In Process Unspecified. EDMS 20:28 XRAY Chest (1 view) In Process Unspecified. EDMS 21:24 Cornelio Figueroa MD is Referral Physician. sp4 22:00 No provider procedures requiring assistance completed. IV discontinued, intact, ha1 bleeding controlled, No redness/swelling at site. Pressure dressing applied. Administered Medications: 20:11 Drug: Ondansetron IVP 4 mg IVP once; over 2 minutes Route: IVP; Site: left antecubital; ha1 21:56 Follow up: Response: No adverse reaction; Marked relief of symptoms ha1 21:39 Drug: morphine IVP or IV 4 mg IVP once over 4 mins Route: IVP; Infused Over: 4 mins; ha1 Site: left antecubital; 21:55 Follow up: Response: No adverse reaction; Marked relief of symptoms; Pain is decreased; ha1 RASS: Alert and Calm (0) 21:39 Drug: HYDROcodone-acetaminophen PO 5 mg-325 mg 2 tabs PO once Route: PO; ha1 21:53 Follow up: Response: No adverse reaction; Marked relief of symptoms; Pain is decreased ha1 Medication: 19:30 VIS not applicable for this client. ha1 Outcome: 21:25 Discharge ordered by . sp4 22:00 Discharged to home via wheelchair, with family, ha1 22:00 Condition: stable 22:00 Discharge instructions given to patient, family, Instructed on discharge instructions, follow up and referral plans. medication usage, Demonstrated understanding of instructions, follow-up care, medications, Prescriptions given X 2, 22:01 Patient left the ED. ha1 Signatures: Dispatcher [employer] EDID Bean Conrad MD MD rn Moreno, Amanda Lexi Caruso RN RN 1 Cornelio Figueroa MD MD sp4
--- NOTE | 2024-07-25 21:26 | EDPHYS ---
Physician Documentation [facility] Name: Anisha Lindsay Age: 58 yrs Sex: Female : 1965 Arrival Date: 07/25/2024 Time: 19:01 Bed 14 Private MD: Ninfa Mensah R ED Physician Cornelio Figueroa HPI: 07/25 19:43 This 58 yrs old Female presents to ER via Wheelchair with complaints of Chest Pain, rn Dizziness, Nausea/Vomiting. 19:43 The patient or guardian reports chest pain that is located primarily in the substernal rn area. Onset: today. The pain radiates to back. Associated signs and symptoms: Pertinent positives: abdominal pain, nausea, vomiting, Pertinent negatives: cough, shortness of breath, syncope. The chest pain is described as a heaviness, a pressure. Modifying factors: The symptoms are alleviated by nothing. the symptoms are aggravated by nothing. Severity of pain: At its worst the pain was moderate in the emergency department the pain is unchanged. The patient has experienced similar episodes in the past. Patient reports substernal chest pain that radiates to the back. Associated with nausea and vomiting. Reports has had pericarditis in the past. 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 Reports recent viral illness which she has improved.. 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 - Infectious Disease History:: Denies. - Social history:: Smoking status: Patient denies any tobacco usage or history of. - Family history:: not pertinent. - Hospitalizations: : No recent hospitalization is reported. ROS: 19:43 Constitutional: Negative for fever, chills, and weight loss, Neck: Negative for injury, rn pain, and swelling, Cardiovascular: Positive for chest pain Respiratory: Negative for shortness of breath, cough, wheezing, and pleuritic chest pain, Abdomen/GI: Positive for nausea and vomiting : Negative for injury, bleeding, discharge, and swelling, MS/Extremity: Negative for injury and deformity, Skin: Negative for injury, rash, and discoloration, Neuro: Negative for headache, weakness, numbness, tingling, and seizure, Exam: 19:43 Constitutional: This is a well developed, well nourished patient who is awake, alert, rn and in no acute distress. Cardiovascular: Tachycardic, regular Respiratory: Speaking full sentences, unlabored. No increased work of breathing, no retractions or nasal flaring. Abdomen/GI: Soft, non-tender MS/ Extremity: Pulses equal, no cyanosis. Neurovascular intact. Full, normal range of motion. Equal circumference. Neuro: Awake and alert, GCS 15 21:31 Constitutional: This is a well developed, well nourished patient who is awake, alert, sp4 and in no acute distress. Head/Face: Normocephalic, atraumatic. Eyes: Pupils equal round and reactive to light, extra-ocular motions intact. Lids and lashes normal. Conjunctiva and sclera are not injected. Cornea within normal limits. Periorbital areas with no swelling, redness, or edema. ENT: Nares patent. No nasal discharge, no septal abnormalities noted. Tympanic membranes are normal and external auditory canals are clear. Oropharynx with no redness, swelling, or masses, exudates, or evidence of obstruction, uvula midline. Mucous membranes moist. Neck: Trachea midline, no thyromegaly or masses palpated, and no cervical lymphadenopathy. Supple, full range of motion without nuchal rigidity, or vertebral point tenderness. Chest/axilla: Normal chest wall appearance and motion. Nontender with no deformity. No lesions are appreciated. Cardiovascular: Regular rate and rhythm with a normal S1 and S2. No gallops, murmurs, or rubs. Normal PMI, no JVD. No pulse deficits. Respiratory: Lungs have equal breath sounds bilaterally, clear to auscultation and percussion. No rales, rhonchi or wheezes noted. No increased work of breathing, no retractions or nasal flaring. Abdomen/GI: Soft, with normal bowel sounds. No distension or tympany. No guarding or rebound. No evidence of tenderness throughout. Back: No spinal tenderness. No costovertebral tenderness. Skin: Warm, dry with normal turgor. Normal color with no rashes, no lesions, and no evidence of cellulitis. MS/ Extremity: Pulses equal, no cyanosis. Neurovascular intact. Full, normal range of motion. Neuro: Awake and alert, GCS 15, oriented to person, place, time, and situation. Cranial nerves II-XII grossly intact. Motor strength 5/5 in all extremities. Sensory grossly intact. Psych: Awake, alert, with orientation to person, place and time. Behavior, mood, and affect are within normal limits 21:31 ECG was reviewed by the Attending Physician. EKG at 1914 sinus tachycardia rate 101. Vital Signs: 19:04 BP 159 / 111; Pulse 112; Resp 18 S; Temp 98.2(O); Pulse Ox 99% on R/A; Weight 101.15 ha1 kg; Height 5 ft. 2 in. ; 20:30 BP 158 / 83; Pulse 94; Resp 17 S; Pulse Ox 97% on R/A; ha1 22:00 BP 151 / 95; Pulse 81; Resp 18 S; Temp 98.2(O); Pulse Ox 97% on R/A; ha1 19:04 Body Mass Index 40.79 (101.15 kg, 157.48 cm) ha1 [place] Coma Score: 21:31 Eye Response: spontaneous(4). Motor Response: obeys commands(6). Verbal Response: sp4 oriented(5). Total: 15. MDM: 19:19 Medical Screening Exam initiated rn 21:00 ED course: Procedure: Chest Single View HISTORY: Chest pain COMPARISON: May 2024 sp4 FINDINGS: The lungs appear clear of acute infiltrate. There is scarring left upper lobe. No significant pleural effusion noted. The heart is normal size. Central catheter in place. IMPRESSION: No acute abnormality is displayed. . 21:02 ED course: EXAM: CT CHEST, ABDOMEN AND PELVIS WITHOUT CONTRAST CLINICAL INDICATION: sp4 Chest pain. Lung cancer. Abdominal pain. Vomiting TECHNIQUE: CT chest, abdomen and pelvis was performed, without IV contrast, as per department protocol. Axial, sagittal and coronal reconstructions were obtained. One or more of the following dose reduction techniques were used: Automated exposure control, adjustment of the mA and/or kV according to the patient size, and/or iterative reconstruction. Unless otherwise specified, incidental findings do not require dedicated imaging follow-up. The lack of IV and oral contrast limits evaluation of the mediastinum, debbi, vessels, organs and bowel. COMPARISON: [address] abdomen FINDINGS: Rectangular opacity left upper lobe likely post treatment change. Calcified granuloma right lung. No mediastinal or hilar lymphadenopathy seen. No pleural effusion. No pericardial effusion. Liver, spleen, pancreas, adrenals kidneys and bladder appear grossly normal There is no evidence of diverticulitis Cholecystectomy Hysterectomy. Post surgical changes ventral hernia repair .Small left inguinal hernia contains fat. No adnexal mass.. Duodenal diverticulum. Pain pump present. IMPRESSION: No evidence of recurrent neoplasm. No acute abnormality displayed . 21:27 Differential diagnosis: acute pericarditis, chest wall pain, esophagitis, gastritis, sp4 herpes zoster, stable angina. HEART Score: History: Slightly Suspicious (0), ECG: Normal (0), Age: > 45 and < 65 years (1), Risk Factors: 1 or 2 risk factors (1), Troponin: < or = 1 x Normal Limit (0), Total Score = 2. The patient was not given aspirin in the Emergency Department. Aspirin not given, patient refused. Data reviewed: vital signs, nurses notes, radiologic studies, CT scan, plain films. ED course: Patient has signs and symptoms of acute viral illness associated with nausea vomiting dizziness and pleuritic type chest pain. Stable for discharge home with clear liquid diet.. 07/25 19:41 Order name: Basic Metabolic Panel; Complete Time: 21:00 rn 07/25 19:41 Order name: CBC with Diff; Complete Time: 20:17 rn 07/25 19:41 Order name: LFT's; Complete Time: 21:00 rn 07/25 19:41 Order name: NT PRO-BNP; Complete Time: 21:00 rn 07/25 19:41 Order name: PT-INR; Complete Time: 20:05 rn 07/25 19:41 Order name: Troponin HS; Complete Time: 21:00 rn 07/25 19:52 Order name: Urinalysis w/ reflexes; Complete Time: 20:17 ha1 07/25 19:41 Order name: XRAY Chest (1 view); Complete Time: 21:00 rn 07/25 19:41 Order name: CT Chest Abdomen Pelvis W/O Contrast; Complete Time: 21:00 rn 07/25 19:22 Order name: EKG - Nurse/Tech; Complete Time: : ha1 07/25 19:41 Order name: Cardiac monitoring; Complete Time: 19:49 rn 07/25 19:41 Order name: IV Saline Lock; Complete Time: 19:49 rn 07/25 19:41 Order name: Labs collected and sent; Complete Time: :49 rn 07/25 19:41 Order name: O2 Per Protocol; Complete Time: :49 rn 07/25 19:41 Order name: O2 Sat Monitoring; Complete Time: :49 rn EC:14 Rate is 101 beats/min. Rhythm is regular, Sinus tachycardia. QRS [place] is Normal. [place] sp4 interval is normal. QRS interval is normal. QT interval is normal. No Q waves. T waves are Normal. No ST changes noted. Clinical impression: No evidence of ischemia. Interpreted by me. Reviewed by me. Administered Medications: 20:11 Drug: Ondansetron IVP 4 mg IVP once; over 2 minutes Route: IVP; Site: left antecubital; ha1 21:56 Follow up: Response: No adverse reaction; Marked relief of symptoms ha1 21:39 Drug: morphine IVP or IV 4 mg IVP once over 4 mins Route: IVP; Infused Over: 4 mins; ha1 Site: left antecubital; 21:55 Follow up: Response: No adverse reaction; Marked relief of symptoms; Pain is decreased; ha1 RASS: Alert and Calm (0) 21:39 Drug: HYDROcodone-acetaminophen PO 5 mg-325 mg 2 tabs PO once Route: PO; ha1 21:53 Follow up: Response: No adverse reaction; Marked relief of symptoms; Pain is decreased ha1 Disposition Summary: 07/25/24 21:25 Discharge Ordered Notes: Location: Home sp4 Problem: new sp4 Symptoms: have improved sp4 Condition: Stable sp4 Diagnosis - Chest pain, unspecified sp4 - Acute Viral Illness, Non Cardiac Chest pain , Acute Viral Gastroenteritis sp4 Followup: sp4 - With: Cornelio Figueroa MD - When: 5 - 6 days - Reason: Recheck today's complaints Discharge Instructions: - Discharge Summary Sheet sp4 - Clear Liquid Diet, Adult, [id number] sp4 Forms: - Patient Portal Instructions sp4 Prescriptions: - acetaminophen-codeine 300-60 mg Oral tablet - take 1 tablet ORAL route every 6 hours PRN pain; 12 tablet; Refills: 0, Product sp4 Selection Permitted - ondansetron 8 mg Oral Tablet,disintegrating - take 1 tablet ORAL route every 8 hours PRN nausea; 30 tablet; Refills: 0, sp4 Product Selection Permitted Signatures: Dispatcher [employer] EDMS Bean Conrad MD MD rn Ayala, Heidy, RN RN ha1 Cornelio Figueroa MD MD sp4 Corrections: (The following items were deleted from the chart) 19:42 19:42 BASIC METABOLIC PANEL+C.LAB.BRZ ordered. EDMS EDMS 19:42 19:42 CBC+H.LAB.BRZ ordered. EDMS EDMS 19:42 19:42 HEPATIC FUNCTION+C.LAB.BRZ ordered. EDMS EDMS 19:42 19:42 PROBNP+C.LAB.BRZ ordered. EDMS EDMS 19:42 19:42 PROTIME (+INR)+COAG.LAB.BRZ ordered. EDMS EDMS 19:42 19:42 Troponin High Sensitivity+C.LAB.BRZ ordered. EDMS EDMS 19:42 19:42 Chest Single View+RAD.RAD.BRZ ordered. EDMS EDMS 19:42 19:42 Chest Abdomen Pelvis Wo Con+CT.RAD.BRZ ordered. EDMS EDMS
[2024-07-25] MEDS ORDERED: MORPHINE 4 MG/ML SYR ONE (21:28)
[2024-07-25] MEDS ORDERED: HYDROCODONE/APAP 5/325 MG TAB ONE (21:29)
[2024-07-25 22:06] VITALS: TEMP 98.2
[2024-07-25 22:07] VITALS: BP 158/83; O2SAT 97
--- NOTE | 2024-07-30 12:11 | EKG ---
Test Date: 2024-07-25 Test Time: 19:14:22 Oil Heaterman: RJ MEASUREMENT RESULTS: Intervals: Rate: 101 VT: 160 QRSD: 80 QT: 318 QTc: 412 Glynn: P: 40 VT: 160 QRS: 66 T: 27 INTERPRETIVE STATEMENTS: Sinus tachycardia Otherwise normal ECG Compared to ECG 06/04/2024 15:46:33 Sinus rhythm no longer present Electronically Signed On 07-30-24 12:04:48 LAW WRITER by Cory Hyman
== END 2024-07-25 22:01 | disposition home or self-care (01) ==
LOC: ER 19:01
DX: R07.89 Other chest pain (principal); A08.4 Viral intestinal infection, unspecified; B34.9 Viral infection, unspecified; C34.90 Malignant neoplasm of unspecified part of unspecified bronchus or lung; I10 Essential (primary) hypertension; I50.9 Heart failure, unspecified
CPT/HCPCS: 85025; 81001; 80048; 36415; 85610; 80076; 84484; 83880; 71250; 74176; 71045; 96375; 96374; 99285; J2405; 93005